=== PATIENT | male | born 1945 | race Caucasian/White ===

== ENCOUNTER 2017-06-08 12:06 | Observation (INO) | payer MEDICARE, MEDICAID ==
[~2017-06-08] VITALS: Ht 198.1 cm; Wt 86.0 kg
[~2017-06-08 12:06] MED LIST: ACET500C5 PO; CEPH-443 PO
--- NOTE | 2017-06-08 14:05 | ERD ---
ER Documentation Chief Complaint Date/Time DATE: 06/08/17 TIME: 14:03 Chief Complaint LT LEG PAIN SINCE LAST NIGHT , NO TRAUMA H/O BLOOD CLOT (BEKAH JOHNSON NP) HPI This 72-year-old male presenting to the emergency department with left leg pain. Patient states he noticed left groin and upper leg redness and pain 2 days. 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 Denies any numbness or tingling to left foot. No loss of sensation. No calf pain or tenderness. (BEKAH JOHNSON NP) ROS All systems reviewed and are negative except as per history of present illness. 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, EA scotty 2pumps topically aa daily 06/08/17 Budesonide-Formoterol Fumarate* (Symbicort*) 160-4.5 Hfa.aer.ad, 2 PUFF INHALATION BID, #1 EACH 06/08/17 Dutasteride* (Avodart*) 0.5 Mg Capsule, 0.5 MG PO DAILY, CAP 06/08/17 Gabapentin* (Gabapentin*) 300 Mg Capsule, 300 MG PO TID, #90 CAP 06/08/17 Warfarin Sodium* (Coumadin*) 7.5 Mg Tablet, 7.5 MG PO DAILY, TAB 06/08/17 Lovastatin* (Lovastatin*) 20 Mg Tablet, 20 MG PO HS, TAB 06/08/17 Discontinued Scripts Acetaminophen* (Tylophen*) 500 Mg Capsule, 1 CAP PO Q6H Y for PAIN AND OR ELEVATED TEMP, #15 CAP Prov:DAYNA NEW MD 05/20/16 Cephalexin* (Keflex*) 500 Mg Capsule, 500 MG PO QID for 10 Days, CAP Prov:DAYNA NEW MD 05/20/16 Allergies Allergies: Coded Allergies: Penicillins (Verified Allergy, Intermediate, 06/08/17) PMhx/Soc History of Surgery: Yes Hx Respiratory Disorders: Yes (COPD, Emphysema) Hx Miscellaneous Medical Probl: Yes (DVT) Hx Alcohol Use: No Hx Substance Use: No Hx Tobacco Use: No Smoking Status: Never smoker (BEKAH JOHNSON NP) FmHx Family History: No coronary disease (BRUCE WONG DO) Physical Exam Vitals Vital Signs Date Time Temp Pulse Resp B/P Pulse Ox O2 Delivery O2 Flow Rate FiO2 06/08/17 12:09 98.1 98 92 120/79 97 (BRUCE WONG DO) Physical Exam Const: alert Head: Atraumatic Eyes: Normal Conjunctiva ENT: Normal External Ears, Nose and Mouth. Neck: Full range of motion..~ No meningismus. Resp: Clear to auscultation bilaterally Cardio: Regular rate and rhythm, no murmurs Abd: Soft, non tender, non distended. Normal bowel sounds Skin: No petechiae or rashes Back: No midline or flank tenderness Ext: No cyanosis, or edema Neur: Awake and alert Psych: Normal Mood and Affect (BEKAH JOHNSON NP) Physical Exam Const: Well-developed, well-nourished Head: Atraumatic, normocephalic Eyes: Normal Conjunctiva, PERRLA, EOMI, normal sclera, no nystagmus ENT: Normal External Ears, Nose and Mouth, moist mucus membranes. Neck: Full range of motion. No meningismus, no lymphadenopathy. Resp: Clear to auscultation bilaterally, no wheezing, rhonchi, rales Cardio: Regular rate and rhythm, no murmurs, S1 S2 present Abd: Soft, non tender x 4, non distended. Normal bowel sounds, no guarding or rebound, no pulsitile abdominal masses or bruits Skin: No petechiae or rashes, no ecchymosis , no maculopapular rash Back: No midline or flank tenderness Ext: No cyanosis, pain swelling and tenderness of the left thigh, FROM x 4, normal inspection, neurovascularly intact x 4 Neur: Awake and alert, STR 5/5 x 4, sensation intact x 4, no focal findings, cerebellum intact Psych: Normal Mood and Affect (BRUCE WONG DO) Result Diagram: 06/09/17 0649 06/09/17 0649 Results 24 hrs Laboratory Tests Test 06/08/17 13:46 06/08/17 16:10 White Blood Count 8.810^3/ul Red Blood Count 4.9410^6/ul Hemoglobin 14.2g/dl Hematocrit 43.5% Mean Corpuscular Volume 88.1fl Mean Corpuscular Hemoglobin 28.7pg Mean Corpuscular Hemoglobin Concent 32.6g/dl Red Cell Distribution Width 13.5% Platelet Count 97409^3/UL Mean Platelet Volume 9.6fl Neutrophils % 72.7% Lymphocytes % 14.2% Monocytes % 5.7% Eosinophils % 6.6% Basophils % 0.6% Nucleated Red Blood Cells % 0.0/100WBC Neutrophils # (Manual) 6.410^3/ul Lymphocytes # 1.310^3/ul Monocytes # 0.510^3/ul Eosinophils # 0.610^3/ul Basophils # 0.110^3/ul Nucleated Red Blood Cells # 0.010^3/ul Prothrombin Time 29.9Sec Prothrombin Time Ratio 2.3 INR International Normalized Ratio 2.80 Activated Partial Thromboplast Time 50.7Sec Sodium Level 144mmol/L 142mmol/L Potassium Level 4.2mmol/L 4.1mmol/L Chloride Level 105mmol/L 103mmol/L Carbon Dioxide Level 31mmol/L 29mmol/L Anion Gap 12 14 Blood Urea Nitrogen 11mg/dl 12mg/dl Creatinine 0.91mg/dl 0.86mg/dl Glucose Level 72mg/dl 89mg/dl Calcium Level 9.1mg/dl 9.1mg/dl Total Bilirubin 0.1mg/dl Direct Bilirubin 0.00mg/dl Indirect Bilirubin 0.1mg/dl Aspartate Amino Transf (AST/SGOT) 17IU/L Alanine Aminotransferase (ALT/SGPT) 27IU/L Alkaline Phosphatase 71IU/L Total Protein 7.7g/dl Albumin 4.2g/dl Globulin 3.50g/dl Albumin/Globulin Ratio 1.20 Current Medications Medications (Trade) Dose Ordered Sig/Paty Route PRN Reason Start Time Stop Time Status Last Admin Dose Admin Sodium Chloride 1,000 ml @ 1,000 mls/hr Q1H ONCE IV 06/08/17 14:30 06/08/17 15:05 DC Clindamycin HCl/ Dextrose (Cleocin 900 Mg/ D5W (Pmx)) 50 ml @ 50 mls/hr ONCE IVPB 06/08/17 14:30 06/08/17 15:04 DC Acetaminophen/ Hydrocodone Bitart 1 tab 1 tab ONCE ONCE PO 06/08/17 15:30 06/08/17 15:31 DC 06/08/17 15:08 Heparin Sodium (Porcine) (Heparin 34972 Units/250 ml) 250 ml @ 0 mls/hr ONCE STAT IV 06/08/17 17:34 06/08/17 17:35 UNV (BRUCE WONG DO) Procedures/MDM [place] [address] Radiology Main Line: [phone] DIAGNOSTIC IMAGING REPORT Patient: AIMEE SIMS : 1945 Age: 72 Sex: M MR #: [id number] DOS: 06/08/17 1335 Ordering MD: BEKAH JOHNSON NP Location: [facility] Room/Bed: PROCEDURE: US DVT. CLINICAL INDICATION: Left lower extremity swelling. TECHNIQUE: Multiple longitudinal and transverse images of the left lower extremity veins were obtained with gonzalez scale and color Doppler imaging. 2D grayscale measurements with compression, color Doppler flow, and augmentation was performed. The calf veins were interrogated as well. COMPARISON: None available FINDINGS: There is noncompressibility of the left common femoral vein as well as the greater saphenous vein. The left femoral and popliteal veins are normally compressible throughout. Color flow demonstrates normal filling of the vessel. IMPRESSION: 1. Positive for deep venous thrombus in the left common femoral vein. Additional thrombus in the left greater saphenous vein is identified. MDM: 9- year old male presents to ER with left groin and leg pain x 1 day. A workup was done and venous ultrasound reviewed by radiologist shows positive for deep venous thrombus in the left common femoral vein. INR 2.8. Since patient is already on anticoagulation therapy and has an IVC filter in place, discussed findings with Dr. Wong. Dr. Wong spoke with vascular surgeon who advised us to admit the patient for heparin infusion and surgery tomorrow. Discussed this with patient. Patient will be signed out to Dr. Wong for admission. Patient remains comfortable throughout ED visit. Vitals are stable. (BEKAH JOHNSON NP) Patient's care is transferred to ar For admit to the hospital. Patient says some left leg swelling the past couple days with swelling and pain in the thigh with some mild erythema. He does have an IVC filter in place on Coumadin INR is 2.8. I discussed the case with her vascular surgeon Dr. Nguyen near we will have the patient admitted and put on heparin drip and he will take a look at him tomorrow. He may need some vascular intervention. He definitely needs to have his medication changed to Xarelto or other patient be admitted to [facility] on heparin drip (BRUCE WONG DO) Departure Diagnosis: Primary Impression: DVT (deep venous thrombosis) DVT location: lower extremity Affected thrombotic vein of extremity: femoral Chronicity: acute Laterality: left Qualified Code: I82.412 - Acute deep vein thrombosis (DVT) of femoral vein of left lower extremity Condition: Stable BEKAH JOHNSON NP Jun 08, 2017 14:05 BRUCE WONG DO Jun 08, 2017 17:35
[2017-06-08 14:08] LABS: BASOPHIL # 0.1 10^3/ul (0.0-0.1); BASOPHILS % 0.6 % (0.0-2.0); EOSINOPHILS # 0.6 10^3/ul (0.0-0.5); EOSINOPHILS % 6.6 % (0.0-7.0); HEMATOCRIT 43.5 % (42.0-52.0); HEMOGLOBIN 14.2 g/dl (14.0-18.0); LYMPHOCYTES # 1.3 10^3/ul (0.8-2.9); LYMPHOCYTES % 14.2 % (15.0-51.0); MEAN CORPUSCULAR HEMOGLOBIN 28.7 pg (29.0-33.0); MEAN CORPUSCULAR HGB CONC 32.6 g/dl (32.0-37.0); MEAN CORPUSCULAR VOLUME 88.1 fl (82.0-101.0); MEAN PLATELET VOLUME 9.6 fl (7.4-10.4); MONOCYTE # 0.5 10^3/ul (0.3-0.9); MONOCYTES % 5.7 % (0.0-11.0); NEUTROPHILS % 72.7 % (39.0-77.0); PLATELET COUNT 196 10^3/UL (140-415); RED BLOOD COUNT 4.94 10^6/ul (4.70-6.10); RED CELL DISTRIBUTION WIDTH 13.5 % (11.5-14.5); WHITE BLOOD COUNT 8.8 10^3/ul (4.8-10.8)
[2017-06-08 14:27] LABS: INR 2.8; PROTIME 29.9 Sec (12.2-14.2); PT RATIO 2.3
[2017-06-08] MEDS ORDERED: CLINDAMYCIN 900 MG/D5W (PMX) 50 ML IVPB SCH (14:30)
[2017-06-08] MEDS ORDERED: SOD CHLORIDE 0.9% 1,000 ML IV ONE (14:30)
[2017-06-08 14:31] LABS: CALCIUM 9.1 mg/dl (8.4-10.2); CREATININE 0.91 mg/dl (0.61-1.24); POTASSIUM 4.2 mmol/L (3.5-5.1)
[2017-06-08 14:33] LABS: PARTIAL THROMBOPLASTIN TIME 50.7 Sec (25.0-35.0)
[2017-06-08] MEDS ORDERED: HYDR-906 PO (15:21)
[2017-06-08] MEDS ORDERED: CLIN-73 PO (15:21)
[2017-06-08] MEDS ORDERED: HYDROCODONE/APAP (5/325) TAB PO ONE (15:30)
--- NOTE | 2017-06-08 15:39 | RADRPT ---
PROCEDURE: US DVT. CLINICAL INDICATION: Left lower extremity swelling. TECHNIQUE: Multiple longitudinal and transverse images of the left lower extremity veins were obta ined with gonzalez scale and color Doppler imaging. 2D grayscale measurements with compression, color D oppler flow, and augmentation was performed. The calf veins were interrogated as well. COMPARISON: None available FINDINGS: There is noncompressibility of the left common femoral vein as well as the greater saphenous vein. The left femoral and popliteal veins are normally compressible throughout. Color flow demonstrates normal filling of the vessel. IMPRESSION: 1. Positive for deep venous thrombus in the left common femoral vein. Additional thrombus in the l eft greater saphenous vein is identified. Findings discussed with Brigette Parekh (Laure) at 06/08/2017 3:36:50 PM RPTAT: UU .Harry Juarez MD, Date Time Electronically viewed and signed by .Harry Juarez MD, on 06/08/2017 15:38 .K/
[2017-06-08] MEDS ORDERED: LOVA20TA PO (16:34)
[2017-06-08] MEDS ORDERED: WARF7.5T PO (16:35)
[2017-06-08] MEDS ORDERED: GABA300C16 PO (16:35)
[2017-06-08] MEDS ORDERED: DUTA0.5C PO (16:36)
[2017-06-08] MEDS ORDERED: BUDE6HFA INHALATION (16:36)
[2017-06-08] MEDS ORDERED: TEST75GE TD (16:39)
[2017-06-08 16:45] LABS: ALBUMIN 4.2 g/dl (3.3-4.9); ALBUMIN/GLOBULIN RATIO 1.2; BILIRUBIN,INDIRECT 0.1 mg/dl (0-1.1); BILIRUBIN,TOTAL 0.1 mg/dl (0.2-1.3); CALCIUM 9.1 mg/dl (8.4-10.2); CREATININE 0.86 mg/dl (0.61-1.24); POTASSIUM 4.1 mmol/L (3.5-5.1); TOTAL PROTEIN 7.7 g/dl (6.1-8.1)
[2017-06-08] MEDS ORDERED: HEPARIN 25000 UNITS/250 ML 250 ML IV STA (17:34)
[2017-06-08] MEDS ORDERED: ACETAMINOPHEN 325 MG TAB PO PRN (18:00)
[2017-06-08] MEDS ORDERED: ONDANSETRON 4 MG INJ IV PRN ×2 (18:00→22:00)
[2017-06-08] MEDS ORDERED: morphine 4 MG/ML VIAL IV STA (19:33)
[2017-06-08] MEDS ORDERED: ONDANSETRON 4 MG INJ IV STA (19:33)
[2017-06-08] MEDS ORDERED: LORAZEPAM 2 MG INJ IV ONE (20:00)
[2017-06-08 20:31] VITALS: TEMP 98
[2017-06-08 21:12] VITALS: PULSE 77
[2017-06-08 21:30] VITALS: BP 126/60; PULSE 73; RESP 24
[2017-06-08] MEDS ORDERED: ZOLPIDEM 5 MG TAB PO PRN (22:00)
[2017-06-08] MEDS ORDERED: HEPARIN 1000 UNITS/ML 10 ML INJ IV PRN ×2 (22:00)
[2017-06-08] MEDS ORDERED: HYDROCODONE/APAP (5/325) TAB PO PRN (22:00)
[2017-06-08] MEDS ORDERED: morphine 2 MG INJ IV PRN (22:00)
[2017-06-08] MEDS ORDERED: ALBUTEROL/IPRATROPIUM (NEB) 3 ML AMP HHN PRN (22:00)
[2017-06-08] MEDS ORDERED: HEPARIN 25000 UNITS/250 ML 250 ML IV SCH (22:00)
[2017-06-08 22:47] VITALS: Ht 198.1 cm; Wt 86.0 kg
[2017-06-09] VITALS: BP 136/71; RESP 16
[2017-06-09 05:07] VITALS: BP 128/73; RESP 20
--- NOTE | 2017-06-09 06:15 | HP ---
Date/Time of Note Date/Time of Note DATE: 06/09/17 TIME: 05:39 Assessment/Plan VTE Prophylaxis VTE Prophylaxis Intervention: heparin Lines/Catheters IV [facility] Peripheral IV Assessment/Plan Assessment/Plan 1. 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 He is status post placement of IVC filter in 2007. -Currently he is on heparin drip which I will continue. Upon discharge, he should be switched to Xarelto or Eliquis. Will place vascular surgery consult to see if this needs invasive intervention. -Consider hematology consult as needed 2. COPD: -Continue home medications -Will give him a dose of Solu-Medrol because of wheezing 3. Dyslipidemia -Continue statin HPI/ROS Admit Date/Time Admit Date/Time Jun 08, 2017 at 17:39 Hx of Present Illness This is a 72-year-old male with a history of COPD and left lower extremity DVT, status post IVC filter in 2007 currently on Coumadin who presented to the emergency department complaining of left leg pain and redness which he noticed yesterday. He said he is very active and does not usually sits around at home. 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 In the ER, he was found to have DVT in left common femoral. There is also thrombosis in the left saphenous. He has been taking his Coumadin and his INR is actually 2.8. Denied chest pain. He also denied acute shortness of breath even though he does have occasional shortness of breath from his COPD. Patient was very reluctant to be admitted but he decided to stay after he was convinced by ER that he will need vascular surgeon evaluation. He said he has to leave by noon regardless of whether or not he has vascular intervention. . PMH/Family/Social Past Medical History Left leg DVT COPD Dyslipidemia . Social History Smoking Status: Former smoker Exam/Review of Systems Vital Signs Vitals Vital Signs Date Time Temp Pulse Resp B/P Pulse Ox O2 Delivery O2 Flow Rate FiO2 06/09/17 05:07 98.4 89 20 128/73 94 06/08/17 22:00 Nasal Cannula 2.0 Intake and Output 06/08/17 06/08/17 06/09/17 15:00 23:00 07:00 Intake Total 500 ml Output Total 500 ml Balance 0 ml Exam Constitutional: alert, oriented, well developed Head: atraumatic, normocephalic Eyes: EOMI, PERRL Respiratory: wheezing Cardiovascular: nl pulses, regular rate and rhythm Gastrointestinal: non-tender, soft Extremities: other (There is redness, tenderness and some swelling on the medial aspect of his upper thigh) Labs Result Diagram: 06/08/17 1346 06/08/17 1610 Medications Medications Current Medications Dutasteride (Avodart) 0.5 mg DAILY PO ; Start 06/09/17 at 09:00 Gabapentin (Neurontin) 300 mg TID PO ; Start 06/09/17 at 09:00 Acetaminophen/ Hydrocodone Bitart ([place] (5/325)) 1 tab Q6H PRN PO PAIN; Start 06/08/17 at 22:00 Salmeterol Xinafoate/ Fluticasone (Advair 250/50 Diskus) 1 inh BID INH ; Start 06/09/17 at 09:00 Atorvastatin Calcium (Lipitor) 20 mg HS PO ; Start 06/09/17 at 21:00 Albuterol/ Ipratropium (Duoneb) 3 ml Q3 PRN HHN WHEEZING AND SOB; Start at 22:00 Morphine Sulfate (morphine) 2 mg Q4H PRN IV PAIN; Start 06/08/17 at 22:00 Ondansetron HCl (Zofran Inj) 4 mg Q6H PRN IV NAUSEA AND/OR VOMITING; Start 06/08 at 22:00 ADEEL VEGA MD Jun 09, 2017 05:49
[2017-06-09 07:31] VITALS: BP 121/79; RESP 18
[2017-06-09 07:51] LABS: BASOPHIL # 0.1 10^3/ul (0.0-0.1); BASOPHILS % 0.8 % (0.0-2.0); EOSINOPHILS # 0.8 10^3/ul (0.0-0.5); HEMATOCRIT 41.8 % (42.0-52.0); HEMOGLOBIN 13.5 g/dl (14.0-18.0); LYMPHOCYTES # 1.4 10^3/ul (0.8-2.9); LYMPHOCYTES % 18.3 % (15.0-51.0); MEAN CORPUSCULAR HEMOGLOBIN 28.4 pg (29.0-33.0); MEAN CORPUSCULAR HGB CONC 32.3 g/dl (32.0-37.0); MEAN PLATELET VOLUME 10.2 fl (7.4-10.4); MONOCYTE # 0.5 10^3/ul (0.3-0.9); MONOCYTES % 6.6 % (0.0-11.0); PLATELET COUNT 219 10^3/UL (140-415); RED BLOOD COUNT 4.75 10^6/ul (4.70-6.10); RED CELL DISTRIBUTION WIDTH 13.2 % (11.5-14.5); WHITE BLOOD COUNT 7.4 10^3/ul (4.8-10.8)
[2017-06-09 08:14] LABS: ALBUMIN 3.8 g/dl (3.3-4.9); ALBUMIN/GLOBULIN RATIO 1.22; BILIRUBIN,INDIRECT 0.3 mg/dl (0-1.1); BILIRUBIN,TOTAL 0.3 mg/dl (0.2-1.3); CREATININE 0.8 mg/dl (0.61-1.24); MAGNESIUM 2.2 mg/dl (1.7-2.5); TOTAL PROTEIN 6.9 g/dl (6.1-8.1)
[2017-06-09] MEDS ORDERED: GABAPENTIN 300 MG CAP PO SCH (09:00)
[2017-06-09] MEDS ORDERED: DUTASTERIDE 0.5 MG CAP PO SCH (09:00)
[2017-06-09] MEDS ORDERED: SALMETEROL/FLUTICASONE 250/50 INHA INH SCH (09:00)
--- NOTE | 2017-06-09 17:07 | DS ---
Date/Time of Note Date/Time of Note DATE: 06/09/17 TIME: 17:01 Discharge Summary Admission/Discharge Info Admit Date/Time Jun 08, 2017 at 17:39 Discharge Date/Time Jun 09, 2017 at 10:39 Discharge Diagnosis Acute DVT left common femoral and left greater saphenous veins Patient Condition: Good Hx of Present Illness This is a 72-year-old male with a history of COPD and left lower extremity DVT, status post IVC filter in 2007 currently on Coumadin who presented to the emergency department complaining of left leg pain and redness which he noticed yesterday. He said he is very active and does not usually sits around at home. 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 In the ER, he was found to have DVT in left common femoral. There is also thrombosis in the left saphenous. He has been taking his Coumadin and his INR is actually 2.8. Denied chest pain. He also denied acute shortness of breath even though he does have occasional shortness of breath from his COPD. Patient was very reluctant to be admitted but he decided to stay after he was convinced by ER that he will need vascular surgeon evaluation. He said he has to leave by noon regardless of whether or not he has vascular intervention. . Hospital Course Patient was started on Heparin drip upon admission. However, he left AMA before being seen by day team hospitalist. Patient was adamant about being discharged in the morning and was informed by the admitting physician that complete workup was not likely to be completed by noon. Patient was not discharged with any medication prescriptions or instructions. He was informed however at time of admission to follow up with the Vascular surgery he has already established care with. 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, EA scotty 2pumps topically aa daily 06/08/17 Budesonide-Formoterol Fumarate* (Symbicort*) 160-4.5 Hfa.aer.ad, 2 PUFF INHALATION BID, #1 EACH 06/08/17 Dutasteride* (Avodart*) 0.5 Mg Capsule, 0.5 MG PO DAILY, CAP 06/08/17 Gabapentin* (Gabapentin*) 300 Mg Capsule, 300 MG PO TID, #90 CAP 06/08/17 Warfarin Sodium* (Coumadin*) 7.5 Mg Tablet, 7.5 MG PO DAILY, TAB 06/08/17 Lovastatin* (Lovastatin*) 20 Mg Tablet, 20 MG PO HS, TAB 06/08/17 Discontinued Scripts Acetaminophen* (Tylophen*) 500 Mg Capsule, 1 CAP PO Q6H Y for PAIN AND OR ELEVATED TEMP, #15 CAP Prov:DAYNA NEW MD 05/20/16 Cephalexin* (Keflex*) 500 Mg Capsule, 500 MG PO QID for 10 Days, CAP Prov:DAYNA NEW MD 05/20/16 Follow-up Plan Patient instructed at time of admission to follow up with vascular surgery as outpatient Primary Care Provider [facility] Emergency Time spent on discharge: < 30 minutes Pending Labs Laboratory Tests Test 06/09/17 00:44 06/09/17 06:49 Activated Partial Thromboplast Time 76.0Sec (25.0-35.0) 110.3Sec (25.0-35.0) White Blood Count 7.410^3/ul (4.8-10.8) Red Blood Count 4.7510^6/ul (4.70-6.10) Hemoglobin 13.5g/dl (14.0-18.0) Hematocrit 41.8% (42.0-52.0) Mean Corpuscular Volume 88.0fl (82.0-101.0) Mean Corpuscular Hemoglobin 28.4pg (29.0-33.0) Mean Corpuscular Hemoglobin Concent 32.3g/dl (32.0-37.0) Red Cell Distribution Width 13.2% (11.5-14.5) Platelet Count 52394^3/UL (140-415) Mean Platelet Volume 10.2fl (7.4-10.4) Neutrophils % 63.0% (39.0-77.0) Lymphocytes % 18.3% (15.0-51.0) Monocytes % 6.6% (0.0-11.0) Eosinophils % 11.0% (0.0-7.0) Basophils % 0.8% (0.0-2.0) Nucleated Red Blood Cells % 0.0/100WBC (0.0-0.0) Neutrophils # (Manual) 4.610^3/ul (1.7-7.5) Lymphocytes # 1.410^3/ul (0.8-2.9) Monocytes # 0.510^3/ul (0.3-0.9) Eosinophils # 0.810^3/ul (0.0-0.5) Basophils # 0.110^3/ul (0.0-0.1) Nucleated Red Blood Cells # 0.010^3/ul (0.0-0.0) Sodium Level 142mmol/L (135-144) Potassium Level 4.0mmol/L (3.5-5.1) Chloride Level 104mmol/L (97-110) Carbon Dioxide Level 30mmol/L (21-31) Anion Gap 12 (8-16) Blood Urea Nitrogen 11mg/dl (7-20) Creatinine 0.80mg/dl (0.61-1.24) Glucose Level 105mg/dl (70-220) Calcium Level 9.0mg/dl (8.4-10.2) Phosphorus Level 3.0mg/dl (2.5-4.9) Magnesium Level 2.2mg/dl (1.7-2.5) Total Bilirubin 0.3mg/dl (0.2-1.3) Direct Bilirubin 0.00mg/dl (0.00-0.20) Indirect Bilirubin 0.3mg/dl (0-1.1) Aspartate Amino Transf (AST/SGOT) 16IU/L (15-46) Alanine Aminotransferase (ALT/SGPT) 27IU/L (13-69) Alkaline Phosphatase 68IU/L (42-121) Total Protein 6.9g/dl (6.1-8.1) Albumin 3.8g/dl (3.3-4.9) Globulin 3.10g/dl (1.3-3.2) Albumin/Globulin Ratio 1.22 DIANE MARCIAL MD Jun 09, 2017 17:07
[2017-06-09] MEDS ORDERED: ATORVASTATIN 20 MG TAB PO SCH (21:00)
== END 2017-06-09 10:39 | disposition left against medical advice (07) ==
LOC: FTE 12:06 → MS4 17:39 → TEL 21:44
PROVIDERS: ADMIT Internal Medicine; ATTEND Internal Medicine
DX: I82.412 Acute embolism and thrombosis of left femoral vein (principal); I82.492 Acute embolism and thrombosis of other specified deep vein of left lower extremity; J44.9 Chronic obstructive pulmonary disease, unspecified; E78.5 Hyperlipidemia, unspecified; Z79.01 Long term (current) use of anticoagulants
CPT/HCPCS: 80048; 80053; 83735; 84100; 85025; 85610; 85730; 87040; 93971; 94640; 94664; G0378; J1644; J2060; J2270; J2405; J7030

== ENCOUNTER 2017-06-15 13:20 | Emergency (ER) | payer MEDICARE, BC ==
[~2017-06-15] VITALS: Wt 82.3 kg
[~2017-06-15 13:20] MED LIST changes: -ACET500C5 PO; +BUDE6HFA INHALATION; -CEPH-443 PO; +DUTA0.5C PO; +GABA300C16 PO; +HYDR-906 PO; +LOVA20TA PO; +TEST75GE TD; +WARF7.5T PO
[2017-06-15 13:26] VITALS: Wt 82.3 kg
--- NOTE | 2017-06-15 16:21 | ERA ---
ER Documentation Chief Complaint Date/Time DATE: 06/15/17 TIME: 16:15 Chief Complaint LEFT LEG PAIN, HERE LAST WEEK SIGNED AMA FROM FLOOR HPI This is a 72-year-old male history of recurrent DVTs with an IVC filter who presents for reevaluation of left lower extremity swelling and pain. The patient had recent hospitalization where he left AGAINST MEDICAL ADVICE because of a new DVT despite therapeutic Coumadin. The patient denies any chest pain or shortness of breath. He states that he had to take care of personal issues. The patient returns because of persistent swelling and mild pain and throbbing to the left lower extremity. Again, no chest pain or pleuritic pain. He states compliance with his Coumadin. He presents back to the emergency room asking for procedure as he was told he might have a procedure. The patient did not have a consultation by vascular surgery during his recent hospitalization. ROS All systems reviewed and are negative except as per history of present illness. 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, EA scotty 2pumps topically aa daily 06/08/17 Budesonide-Formoterol Fumarate* (Symbicort*) 160-4.5 Hfa.aer.ad, 2 PUFF INHALATION BID, #1 EACH 06/08/17 Dutasteride* (Avodart*) 0.5 Mg Capsule, 0.5 MG PO DAILY, CAP 06/08/17 Gabapentin* (Gabapentin*) 300 Mg Capsule, 300 MG PO QHS, #90 CAP 06/08/17 Warfarin Sodium* (Coumadin*) 7.5 Mg Tablet, 7.5 MG PO DAILY, TAB 06/08/17 Lovastatin* (Lovastatin*) 20 Mg Tablet, 20 MG PO QAM, TAB 06/08/17 Discontinued Scripts Hydrocodone/Acetaminophen ([place] 5-325 Tablet) 1 Each Tablet, 1 TAB PO Q6H Y for PAIN, #15 TAB Prov:ALEXBRIGETTEJerad FARIAS 06/08/17 Acetaminophen* (Tylophen*) 500 Mg Capsule, 1 CAP PO Q6H Y for PAIN AND OR ELEVATED TEMP, #15 CAP Prov:DAYNA NEW MD 05/20/16 Cephalexin* (Keflex*) 500 Mg Capsule, 500 MG PO QID for 10 Days, CAP Prov:DAYNA NEW MD 05/20/16 Allergies Allergies: Coded Allergies: Penicillins (Verified Allergy, Intermediate, 06/15/17) PMhx/Soc History of Surgery: Yes (cataract , bilateral eyebrow surgery) Anesthesia Reaction: No Hx Neurological Disorder: No Hx Respiratory Disorders: Yes (COPD, emphysema, s/p left chest tube) Hx Cardiac Disorders: Yes (hx heart attack s/p stent) Hx Psychiatric Problems: No Hx Miscellaneous Medical Probl: Yes (hx DVT - left LE, s/p IVC filter) Hx Alcohol Use: Yes Hx Substance Use: No Hx Tobacco Use: Yes Smoking Status: Current every day smoker FmHx Family History: No diabetes Physical Exam Vitals Vital Signs Date Time Temp Pulse Resp B/P Pulse Ox O2 Delivery O2 Flow Rate FiO2 06/15/17 13:26 98.1 117 18 138/78 99 Physical Exam General: Well developed, well nourished, no acute distress Head: Normocephalic, atraumatic. Eyes: EOM intact ENT: Moist mucous membranes Neck: Full ROM Respiratory: No respiratory distress Cardiovascular: Good capillary refil Abdominal: Nondistended : Deferred MSK: Left lower extremity unilateral swelling with venous stasis dermatitis changes. 2+ dorsalis pedis and posterior tibial pulses. Neurologic: Alert and oriented, moving all extremities, normal speech, steady gait Skin: No rash Psych: Normal mood Result Diagram: 06/15/17 1625 06/15/17 1625 Results 24 hrs Laboratory Tests Test 06/15/17 16:25 White Blood Count 9.410^3/ul Red Blood Count 4.6610^6/ul Hemoglobin 13.3g/dl Hematocrit 41.0% Mean Corpuscular Volume 88.0fl Mean Corpuscular Hemoglobin 28.5pg Mean Corpuscular Hemoglobin Concent 32.4g/dl Red Cell Distribution Width 13.2% Platelet Count 99779^3/UL Mean Platelet Volume 9.4fl Neutrophils % 66.5% Lymphocytes % 17.0% Monocytes % 9.7% Eosinophils % 5.9% Basophils % 0.5% Nucleated Red Blood Cells % 0.0/100WBC Neutrophils # (Manual) 6.210^3/ul Lymphocytes # 1.610^3/ul Monocytes # 0.910^3/ul Eosinophils # 0.610^3/ul Basophils # 0.110^3/ul Nucleated Red Blood Cells # 0.010^3/ul Prothrombin Time 25.4Sec Prothrombin Time Ratio 2.0 INR International Normalized Ratio 2.28 Activated Partial Thromboplast Time 52.4Sec Sodium Level 140mmol/L Potassium Level 4.1mmol/L Chloride Level 103mmol/L Carbon Dioxide Level 31mmol/L Anion Gap 10 Blood Urea Nitrogen 13mg/dl Creatinine 0.82mg/dl Glucose Level 101mg/dl Calcium Level 9.1mg/dl Procedures/MDM EKG, MONITORS, & DIAGNOSTIC IMAGING: DVT from last visit IMPRESSION: 1. Positive for deep venous thrombus in the left common femoral vein. Additional thrombus in the left greater saphenous vein is identified. Findings discussed with Brigette Parekh (Laure) at 06/08/2017 3:36:50 PM RPTAT: [facility] LAB INTERPRETATION: Therapeutic INR MEDICAL DECISION MAKING: the patient presents for further evaluation of a DVT despite Coumadin. The patient has an IVC filter. Unclear what further interventions can be provided for this patient. Consideration for changing to Eliquis or Lovenox but this needs to be done in consultation with a insulation board coater operator and oncologist. The patient is stable without signs of pulmonary embolism. He thinks that he was going to have a Procedure but he never had a consultation by vascular surgeon. I will reach out to vascular surgery to see if there is something that we can do for this patient as an inpatient. Otherwise outpatient management with consultations would be reasonable. ER COURSE: I was able to speak to Dr. Mendiola, vascular surgeon. We reviewed the patient 's case, diagnostic imaging and clinical presentation. He feels that no emergent surgical intervention is necessary or appropriate for this patient. Therefore, inpatient hospitalization is unnecessary. He does however recommend that the patient follow-up in his office because further conversations for therapeutic interventions and treatment course could be possible on an outpatient basis. The patient's information was shared with Dr. Mendiola. The patient was given referral information to Dr. Mendiola. At this time the patient is resting comfortably. He should continue his Coumadin keep his leg elevated and return for any worsening symptoms or signs of pulmonary embolism. I kept the patient and/or family informed of laboratory and diagnostic imaging results throughout the emergency room course. DISPOSITION PLAN: We discussed follow up with the patient's primary care doctor within 24 to 48 hours as needed. We also discussed return to the emergency room for worsening symptoms or worsening condition. Outpatient referral: Vascular surgery, Dr. Mendiola Departure Diagnosis: Primary Impression: DVT (deep venous thrombosis) Qualified Code: I82.412 - Deep vein thrombosis (DVT) of femoral vein of left lower extremity, unspecified chronicity Condition: Stable GANGA GLASS MD Jun 15, 2017 16:21
[2017-06-15 16:44] LABS: BASOPHIL # 0.1 10^3/ul (0.0-0.1); BASOPHILS % 0.5 % (0.0-2.0); EOSINOPHILS # 0.6 10^3/ul (0.0-0.5); EOSINOPHILS % 5.9 % (0.0-7.0); HEMOGLOBIN 13.3 g/dl (14.0-18.0); LYMPHOCYTES # 1.6 10^3/ul (0.8-2.9); MEAN CORPUSCULAR HEMOGLOBIN 28.5 pg (29.0-33.0); MEAN CORPUSCULAR HGB CONC 32.4 g/dl (32.0-37.0); MEAN PLATELET VOLUME 9.4 fl (7.4-10.4); MONOCYTE # 0.9 10^3/ul (0.3-0.9); MONOCYTES % 9.7 % (0.0-11.0); NEUTROPHILS % 66.5 % (39.0-77.0); PLATELET COUNT 188 10^3/UL (140-415); RED BLOOD COUNT 4.66 10^6/ul (4.70-6.10); RED CELL DISTRIBUTION WIDTH 13.2 % (11.5-14.5); WHITE BLOOD COUNT 9.4 10^3/ul (4.8-10.8)
[2017-06-15] MEDS ORDERED: ALBU2.5V3 NEB (16:44)
[2017-06-15] MEDS ORDERED: ALBU18HF INHALATION (16:45)
[2017-06-15 16:58] LABS: INR 2.28; PROTIME 25.4 Sec (12.2-14.2)
[2017-06-15 16:59] LABS: PARTIAL THROMBOPLASTIN TIME 52.4 Sec (25.0-35.0)
[2017-06-15 17:01] LABS: CALCIUM 9.1 mg/dl (8.4-10.2); CREATININE 0.82 mg/dl (0.61-1.24); POTASSIUM 4.1 mmol/L (3.5-5.1)
[2017-06-15 17:11] VITALS: BP 130/80; PULSE 70; RESP 18; TEMP 97.9
== END 2017-06-15 17:20 | disposition home or self-care (01) ==
LOC: E/R 13:20 → FTE 17:20
DX: I82.412 Acute embolism and thrombosis of left femoral vein (principal); J44.9 Chronic obstructive pulmonary disease, unspecified; F17.210 Nicotine dependence, cigarettes, uncomplicated; Z79.01 Long term (current) use of anticoagulants; Z98.61 Coronary angioplasty status
CPT/HCPCS: 36415; 80048; 85025; 85610; 85730; 99283

== ENCOUNTER 2017-07-15 08:24 | Day surgery (SDC) | payer MEDICARE, BC ==
[~2017-07-15] VITALS: Ht 198.1 cm; Wt 78.2 kg
[~2017-07-15 08:24] MED LIST changes: +ALBU18HF INHALATION; +ALBU2.5V3 NEB; -HYDR-906 PO
[2017-07-15] MEDS ORDERED: ENOX80DI2 SC (08:57)
[2017-07-15 09:10] VITALS: Ht 198.1 cm; Wt 78.2 kg
[2017-07-15 09:12] VITALS: BP 117/72; PULSE 91; RESP 16
--- NOTE | 2017-07-15 09:28 | RADRPT ---
PROCEDURE: XR Chest. CLINICAL INDICATION: Shortness of breath TECHNIQUE: Single portable view of the chest was obtained COMPARISON: No priors for comparison. FINDINGS: The trachea is midline. The cardiac silhouette and pulmonary vascularity are within normal limits. R ight upper lobe calcified granuloma is noted. There are bilateral chronic lung changes. The lungs ot herwise clear.. The costophrenic angles are sharp. IMPRESSION: 1. Right upper lobe calcified granuloma and bilateral chronic lung changes. No evidence of acute car diopulmonary disease. RPTAT: [facility] Physician Jeromy Date Time Electronically viewed and signed by Physician Jeromy on 07/15/2017 09:28 YE/
[2017-07-15 09:34] LABS: BASOPHIL # 0.1 10^3/ul (0.0-0.1); BASOPHILS % 0.8 % (0.0-2.0); EOSINOPHILS # 0.6 10^3/ul (0.0-0.5); EOSINOPHILS % 9.3 % (0.0-7.0); HEMATOCRIT 38.4 % (42.0-52.0); LYMPHOCYTES # 1.4 10^3/ul (0.8-2.9); LYMPHOCYTES % 23.3 % (15.0-51.0); MEAN CORPUSCULAR HEMOGLOBIN 27.2 pg (29.0-33.0); MEAN CORPUSCULAR HGB CONC 31.3 g/dl (32.0-37.0); MEAN CORPUSCULAR VOLUME 87.1 fl (82.0-101.0); MEAN PLATELET VOLUME 9.2 fl (7.4-10.4); MONOCYTE # 0.5 10^3/ul (0.3-0.9); MONOCYTES % 8.6 % (0.0-11.0); NEUTROPHIL # 3.5 10^3/ul (1.6-7.5); NEUTROPHILS % 57.5 % (39.0-77.0); PLATELET COUNT 466 10^3/UL (140-415); RED BLOOD COUNT 4.41 10^6/ul (4.70-6.10); RED CELL DISTRIBUTION WIDTH 13.3 % (11.5-14.5); WHITE BLOOD COUNT 6.1 10^3/ul (4.8-10.8)
[2017-07-15 09:51] LABS: INR 1.18; PROTIME 15.1 Sec (12.2-14.2); PT RATIO 1.2
[2017-07-15 09:52] LABS: PARTIAL THROMBOPLASTIN TIME 34.8 Sec (25.0-35.0)
[2017-07-15 09:57] LABS: CALCIUM 9.3 mg/dl (8.4-10.2); CREATININE 0.84 mg/dl (0.61-1.24); POTASSIUM 3.5 mmol/L (3.5-5.1)
[2017-07-15 13:05] LABS: ADD UMIC NO; UR ASCORBIC ACID NEGATIVE (NEGATIVE); UR BACTERIA FEW /HPF (NONE SEEN); UR BILIRUBIN (Dip) NEGATIVE (NEGATIVE); UR BLOOD (Dip) NEGATIVE (NEGATIVE); UR CLARITY SLIGHTLY CLOUDY (CLEAR); UR COLOR YELLOW (YELLOW); UR GLUCOSE (Dip) NEGATIVE (NEGATIVE); UR KETONES (Dip) NEGATIVE (NEGATIVE); UR LEUKOCYTE ESTERASE (Dip) NEGATIVE Leu/ul (NEGATIVE); UR MUCUS FEW /HPF (NONE SEEN); UR NITRITE (Dip) NEGATIVE (NEGATIVE); UR RBC 1 /HPF (0-5); UR SPECIFIC GRAVITY (Dip) 1.021 (1.003-1.030); UR SQUAMOUS EPITHELIAL CELL FEW /HPF (FEW); UR TOTAL PROTEIN (Dip) NEGATIVE (NEGATIVE); UR UROBILINOGEN (Dip) NEGATIVE (NEGATIVE)
[2017-07-15] MEDS ORDERED: LIDOCAINE 1% (MDV) 20 ML INJ ONE (14:20)
[2017-07-15] MEDS ORDERED: HEPARIN 1000 UNITS/ML 10 ML INJ ONE (14:20)
[2017-07-15] MEDS ORDERED: IODIXANOL LOCM 100 ML BTL ONE (14:20)
--- NOTE | 2017-07-15 14:35 | HPN ---
Date/Time of Note Date/Time of Note DATE: 07/15/17 TIME: 14:35 Interval H&P Admission Note Pt. seen H&P reviewed: No system changes MATT MCCULLOUGH MD Jul 15, 2017 14:35
[2017-07-15] MEDS ORDERED: MIDAZOLAM 1 MG/ML 2 ML INJ ONE (14:36)
[2017-07-15] MEDS ORDERED: FENTAnyl 50 MCG/ML VIAL ONE (14:37)
[2017-07-15] MEDS ORDERED: SOD CHLORIDE 0.45% 1,000 ML IV SCH (14:40)
--- NOTE | 2017-07-15 14:41 | PDOCDIS ---
Discharge Instructions DIAGNOSIS Discharge Diagnosis BILATERAL LOWER EXTREMITY DVTS CONDITION Patient Condition: Good HOME CARE INSTRUCTIONS: Diet Instructions: Regular ACTIVITY: Activity Restrictions: Rest between Activity Avoid heavy lifting Do not Drive Do not operate Machinery Do not operate Power Tool Avoid Heavy Housework Activity Restrictions Comment: SHOWER IN 24HOURS FOLLOW UP/APPOINTMENTS Follow-up Plan FOLLOWUP IN 2-3 WEEKS MATT MCCULLOUGH MD Jul 15, 2017 14:41
[2017-07-15] MEDS ORDERED: ONDANSETRON 4 MG INJ IV PRN (15:00)
--- NOTE | 2017-07-15 15:25 | SIPON ---
Date/Time of Note Date/Time of Note DATE: 07/15/17 TIME: 15:24 Operative Report Preoperative Diagnosis bilateral LE DVT's Postoperative Diagnosis same Operation/Procedure Performed BILATERAL LOWER EXTREMITY VENOGRAMS Surgeon see signature line legal administrative assistant none Anesthesia: moderate sedation Estimated blood loss: minimal Transfusion Required none Specimen none Grafts/Implants none Complications none MATT MCCULLOUGH MD Jul 15, 2017 15:25
[2017-07-15 15:30] VITALS: BP 126/67; PULSE 89; RESP 18
[2017-07-15] MEDS ORDERED: WARFARIN 10 MG TAB PO ONE (15:30)
[2017-07-15 17:30] VITALS: BP 122/65; PULSE 85; RESP 18
--- NOTE | 2017-07-17 07:57 | OPR ---
DATE OF OPERATION: 07/15/2017 SURGEON: Ash Mendiola MD. PREOPERATIVE DIAGNOSES: Bilateral lower extremity deep venous thrombosis and left lower extremity v enous insufficiency and venous stasis ulcer. POSTOPERATIVE DIAGNOSES: Bilateral lower extremity deep venous thrombosis and left lower extremity venous insufficiency and venous stasis ulcer. ANESTHESIA: Local with moderate sedation. ESTIMATED BLOOD LOSS: Minimal. COMPLICATIONS: None. HEPARIN: None. CONTRAST: As recorded. ACCESS: Right and left common femoral vein. A 5-[place] sheath. CLOSURE: Manual compression. 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 The patient hart chin presented a few months back in [facility] in [facility] with a new onset of DVT at which time they had placed an inferior vena cava filter. It seemed to be an type. The patient cont inued to have left lower extremity swelling and venous stasis ulcer that has gradually healed with o ur compression stockings recommendations. Today, patient had been informed alternatives, risks and benefits of venogram, possible venoplasty and stenting. Further, the patient's venous stasis ulcer recurrence with his thrombosed greater saphenous vein, we wanted to investigate for any iliac vein c ompression. Risks including but not limited to bleeding, thrombosis, embolization, myocardial infar ction, , device malfunction, infection, nephrotoxicity, stroke, and patient has agreed to proce ed. PROCEDURE: 1. Ultrasound-guided axis of the left common femoral vein. 2. Ultrasound-guided access of the right common femoral vein. 3. Moderate sedation. 4. Inferior vena cava venogram, introducer of catheter 5. Bilateral iliac vein venography. FINDINGS: 1. Right external iliac vein patent. 2. Right common iliac vein patent. 3. inferior vena cava patent. 4. Left common femoral vein patent. 5. Left external iliac vein, patent; however, small in caliber. There was area that seems to be co mpressed in the junction of the left external iliac vein to where the common iliac vein is located. 6. Left common iliac vein enlarged and seems to have a compression in the mid aspect of it. DESCRIPTION OF PROCEDURE: The patient was brought into the angio suite and positioned in the supine position on the fluoroscopic table. Sedation was administered without any complications. Bilatera l groins were shaved, prepped and draped in usual standard sterile fashion. Time out and appropriat e site was marked and confirmed. Local anesthesia was then infiltrated in the region of the bilater al common femoral veins. The bilateral common femoral veins were then cannulated with a micro access needle under ultrasound guidance and a guidewire was advanced into the iliac vein under fluoroscopic guidance. The needle w as then removed and a microcatheter was placed. At this point, the wires were removed and venograph y was performed. Findings are noted above. At this point, it was decided to not intervene as no si gnificant stenosis or thrombosis was identified except the patient did have a small caliber external iliac vein. Patient did seem to have some compression of the external iliac/common iliac vein junc tion in which should the patient have further worsening of his lower extremities, we will plan to in tervene with intravascular ultrasound and possible stenting if needed. At this point, all catheters , wires and sheaths were removed. The patient tolerated the procedure well and was taken to postane sthesia care unit in stable condition. PLAN: We will have the patient resume his anticoagulation and will continue with the recommendation of lower extremity compression stockings or 2 to 3-layer compression therapies. We will have the p atient follow up in a short period of time. Dictated By: ASH KNOWLES/FERNIE Conf#: [id number] DID#: [id number]
--- NOTE | 2017-07-18 15:57 | RADRPT ---
Vent Rate: 78 bpm RR Interval: 0 msec RI Interval: 150 msec QRS Duration: 80 msec QT Interval: 388 msec QTC Interval: 442 msec P-R-T [place]: 68 - 67 - 67 degrees Normal sinus rhythm Normal ECG Electronically Signed By: Paolo Gallagher [id number]
== END 2017-07-15 17:30 | disposition home or self-care (01) ==
LOC: SDS 08:24
PROVIDERS: ATTEND Student in an Organized Health Care Education/Training Program
DX: I82.403 Acute embolism and thrombosis of unspecified deep veins of lower extremity, bilateral (principal); I87.2 Venous insufficiency (chronic) (peripheral); I87.8 Other specified disorders of veins; J44.9 Chronic obstructive pulmonary disease, unspecified; Z79.01 Long term (current) use of anticoagulants; Z87.891 Personal history of nicotine dependence
CPT/HCPCS: 36005; 71010; 80048; 81001; 85025; 85610; 85730; 93005; C1894; J1644; J2250; J3010; Q9967; 81003

== ENCOUNTER 2017-07-21 18:14 | Inpatient (IN) | payer MEDICARE, BC ==
[~2017-07-21] VITALS: Ht 198.1 cm; Wt 84.3 kg
[~2017-07-21 18:14] MED LIST changes: -ALBU18HF INHALATION; -ALBU2.5V3 NEB; -BUDE6HFA INHALATION; +ENOX80DI2 SC
[2017-07-21 18:38] VITALS: TEMP 97.8
--- NOTE | 2017-07-21 18:47 | ERA ---
ER Documentation Chief Complaint Date/Time DATE: 07/21/17 TIME: 18:46 Chief Complaint BIB RA FOR EVAL OF BILAT LEG PAIN. HX OF DVT HPI 72-year-old male history of COPD and lower extremity DVT on Coumadin status post IVC filter placement ambulatory to the ED complaining of several week history of worsening right greater than left leg pain. Patient complains of sharp right greater than left, moderate to severe pain to the bottom of his feet which radiate up to his legs especially while standing and walking. Pain is relieved by elevating the extremities. Denies chest pain, shortness of breath or palpitations. No abdominal pain, nausea, vomiting, diarrhea or constipation. No calf pain or swelling. No fevers or chills. ROS All systems reviewed and are negative except as per history of present illness. 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, 0 TD DAILY, EA scotty 2pumps topically aa daily 06/08/17 Dutasteride* (Avodart*) 0.5 Mg Capsule, 0.5 MG PO DAILY, CAP 06/08/17 Gabapentin* (Gabapentin*) 300 Mg Capsule, 300 MG PO QHS, #90 CAP 06/08/17 Warfarin Sodium* (Coumadin*) 7.5 Mg Tablet, 7.5 MG PO DAILY, TAB 06/08/17 Lovastatin* (Lovastatin*) 20 Mg Tablet, 20 MG PO QAM, TAB 06/08/17 Discontinued Reported Medications Enoxaparin Sodium (Enoxaparin Sodium) 80 Mg/0.8 Ml Syringe, 80 MG SC DAILY, SYR STARTED ON 06-10-17 07/15/17 Albuterol Sulfate* (Ventolin HFA*) 18 Gm Hfa.aer.ad, 2 PUFF INHALATION Q4H Y for WHEEZING AND SOB, #1 INHALER 06/15/17 Albuterol Sulfate* (Albuterol Sulfate* Neb) 0.083%-3 Ml Neb, 2.5 MG NEB Q4 Y for WHEEZING AND SOB, #30 VIAL 06/15/17 Budesonide-Formoterol Fumarate* (Symbicort*) 160-4.5 Hfa.aer.ad, 2 PUFF INHALATION BID, #1 EACH 06/08/17 Allergies Allergies: Coded Allergies: Penicillins (Verified Allergy, Intermediate, 07/21/17) PMhx/Soc Reviewed in chart. As per HPI. 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 Early coronary artery disease. Physical Exam Vitals Vital Signs Date Time Temp Pulse Resp B/P Pulse Ox O2 Delivery O2 Flow Rate FiO2 07/21/17 23:05 99 16 121/84 99 Room Air 07/21/17 22:32 87 15 132/74 98 Room Air 07/21/17 22:15 17 119/86 97 Room Air 07/21/17 21:36 102 21 118/4 100 Room Air 07/21/17 21:17 105 25 111/83 100 Room Air 07/21/17 19:48 31 108/85 100 Room Air 07/21/17 19:19 130 22 157/143 100 Room Air 07/21/17 18:38 97.8 146 26 181/152 100 Room Air 07/21/17 18:25 98.1 146 18 163/123 99 Physical Exam Const: Alert, anxious, moderate distress Head: Atraumatic Eyes: Normal Conjunctiva ENT: Normal External Ears, Nose and Mouth. Neck: Full range of motion. Nontender, no JVD Resp: Clear to auscultation bilaterally Cardio: Regular rate and rhythm, no murmurs Abd: Soft, non tender, non distended. Normal bowel sounds. No pulsatile masses. Skin: No petechiae or rashes Back: No midline or flank tenderness Ext: Left lower extremity swelling. Palpable pulses bilateral lower extremities. Neur: Awake and alert. No focal deficit observed. Psych: Normal Mood and Affect Result Diagram: 07/21/17 1856 07/21/17 1856 Results 24 hrs Laboratory Tests Test 07/21/17 18:56 White Blood Count 17.410^3/ul Red Blood Count 4.5710^6/ul Hemoglobin 12.4g/dl Hematocrit 39.0% Mean Corpuscular Volume 85.3fl Mean Corpuscular Hemoglobin 27.1pg Mean Corpuscular Hemoglobin Concent 31.8g/dl Red Cell Distribution Width 14.2% Platelet Count 90933^3/UL Mean Platelet Volume 11.8fl Neutrophils % 85.4% Lymphocytes % 6.7% Monocytes % 6.0% Eosinophils % 1.0% Basophils % 0.2% Nucleated Red Blood Cells % 0.0/100WBC Neutrophils # 14.810^3/ul Lymphocytes # 1.210^3/ul Monocytes # 1.010^3/ul Eosinophils # 0.210^3/ul Basophils # 0.010^3/ul Nucleated Red Blood Cells # 0.010^3/ul Prothrombin Time 27.7Sec Prothrombin Time Ratio 2.2 INR International Normalized Ratio 2.54 Sodium Level 140mmol/L Potassium Level 5.5mmol/L Chloride Level 101mmol/L Carbon Dioxide Level 23mmol/L Anion Gap 22 Blood Urea Nitrogen 28mg/dl Creatinine 1.38mg/dl Glucose Level 150mg/dl Calcium Level 9.7mg/dl Troponin I < 0.012ng/ml Current Medications Medications (Trade) Dose Ordered Sig/Paty Route PRN Reason Start Time Stop Time Status Last Admin Dose Admin Sodium Chloride (NS) 1,000 ml @ 1,000 mls/hr Q1H STAT IV 07/21/17 18:54 07/21/17 19:53 DC 07/21/17 19:52 IV Flush 10 ml 10 ml STK-MED ONCE .ROUTE 07/21/17 20:03 07/21/17 20:04 DC 07/21/17 20:36 Sodium Chloride (NS) 100 ml @ ud STK-MED ONCE .ROUTE 07/21/17 20:03 07/21/17 20:04 DC 07/21/17 20:37 Iodixanol (Visipaque Locm) 100 ml STK-MED ONCE .ROUTE 07/21/17 20:03 07/21/17 20:04 DC 07/21/17 20:37 Iodixanol (Visipaque Locm) 50 ml STK-MED ONCE .ROUTE 07/21/17 20:03 07/21/17 20:04 DC 07/21/17 20:37 Ondansetron HCl (Zofran Inj) 4 mg BRIDGE ORDER PRN IV NAUSEA AND/OR VOMITING 07/21/17 23:30 07/22/17 23:29 Acetaminophen (Tylenol Tab) 650 mg ER BRIDGE PRN PO MILD PAIN/FEVER 07/21/17 23:30 07/22/17 23:29 Dutasteride (Avodart) 0.5 mg DAILY PO 07/22/17 09:00 UNV Gabapentin (Neurontin) 300 mg QHS PO 07/22/17 21:00 UNV Warfarin Sodium (Coumadin) 7.5 mg DAILY PO 07/22/17 09:00 UNV Miscellaneous Information 2 puff BID INHALATION 07/22/17 09:00 UNV Miscellaneous Information 20 mg QAM PO 07/22/17 09:00 UNV Acetaminophen (Tylenol Tab) 650 mg QID PRN PO PAIN LEVEL 1-5 07/21/17 23:30 UNV Ondansetron HCl (Zofran Inj) 4 mg Q6H PRN IV NAUSEA AND/OR VOMITING 07/21/17 23:30 UNV Acetaminophen/ Hydrocodone Bitart (Vardaman (5/325)) 1 tab Q4H PRN PO PAIN LEVEL 4-7 07/21/17 23:30 UNV Morphine Sulfate (morphine SULFATE IV (NICU)) 2 mg Q4H PRN IV MODERATE PAIN LEVEL 4-6 07/21/17 23:30 UNV PROCEDURE: CT ANGIOGRAM ABDOMEN PELVIS AND LOWER EXTREMITY RUNOFF CLINICAL INDICATION: 72 years of age, male. Lower extremity pain. Left flank pain TECHNIQUE: A CT angiogram of the abdomen and pelvis with lower extremity runoff was performed with intravenous contrast. The patient was scanned following the intravenous administration of 125 mL of Visipaque 320. Coronal and sagittal reformatted images were obtained from the axial source images. Images were reviewed on a high-resolution PACS workstation. 3-D post processing was performed. Maximum intensity projection images were reconstructed on PACS. CTDIvol: 28 and 5 mGy. DLP: 837 mGy-cm. One or more of the following dose reduction techniques were used: - Automated exposure control. - Adjustment of the mA and/or kV according to patient size. - Use of iterative reconstruction technique. COMPARISON: None available. FINDINGS: AORTA AND LOWER EXTREMITY ARTERIES: AORTA AND BRANCHES: Aorta: Atherosclerosis of the abdominal aorta with an infrarenal aneurysm that measures 3 x 3.3 cm at the CARMITA (3/279). There is irregular noncalcified plaque within the aneurysm lumen. Superior extent of aneursym is 5.7 cm inferior to the renal arteries and terminates above the aortic bifurcation. Renal arteries: There are single right and two left renal arteries. Renal arteries are widely patent. Second left renal artery is a small accessory vessel. There is ulcerated atherosclerotic plaque at the origin of the right renal artery without high-grade stenosis. There is a 1.9 cm saccular aneurysm arising from the distal left renal artery with a patent lumen (2/44). Celiac Kimberly, SMA and CARMITA: Conventional anatomy. Widely patent. ILIAC ARTERIES: Right iliac arteries: Atherosclerotic calcification of common and external iliac arteries without high-grade stenosis. Internal iliac artery is patent without aneurysm. Left iliac arteries:Atherosclerotic calcification of common and external iliac arteries without high-grade stenosis. Internal iliac artery is patent without aneurysm. RIGHT LOWER EXTREMITY: Right common and superficial femoral arteries are widely patent. There is a partially thrombosed aneurysm of the above-knee popliteal artery. Aneurysm measures 3.5 x 3.5 cm in transverse diameter (4/827) and 6.4 cm in length (604/ 60). The aneurysm is mostly thrombosed and the patent lumen is severely narrowed measuring 0.4 x 1.6 cm in diameter. Inferiorly, the patent lumen increases and measures 1.4 x 1.7 cm. Below knee popliteal artery is patent. Tibioperoneal trunk is patent. Anterior tibial, peroneal and posterior tibial arteries are patent to the level of the midcalf. These arteries are not opacified in the distal calf that may be due to slow flow. LEFT LOWER EXTREMITY: Left common femoral, superficial femoral and popliteal arteries are widely patent. There is atherosclerosis of the above-knee popliteal artery with mild aneurysmal dilatation measuring a 1.2 x 1.5 cm (4/934). There is irregular atherosclerotic plaque throughout the aneurysmal above-knee popliteal artery resulting in 30% stenosis of the aneurysm lumen inferiorly. Negative for high- grade stenosis. Below knee popliteal artery and tibioperoneal trunk are patent. Anterior tibial, posterior tibial and peroneal arteries are visualized in the proximal calf. However, the arteries are not visualized in the mid and distal calf that may be due to slow flow rather than occlusion. LUNG BASES, ABDOMEN AND PELVIS: Evaluation of solid visceral organs and veins is limited on arterial phase imaging of the abdomen and pelvis. Lung Bases: Emphysema bilateral lung bases. Liver: Reflux of contrast into the hepatic veins suggests a degree of right heart dysfunction. Hypodensities in the right and left lobes of the liver measuring up to 1 cm likely represent cysts. They are incompletely characterized. Gallbladder: Normal. Biliary tree: No intrahepatic or extrahepatic biliary duct dilatation. Spleen: No significant abnormality. Pancreas: No significant abnormality. Adrenal glands: There are bilateral adrenal nodules measuring 2.1 cm on the right and 3.7 cm on the left. Kidneys and ureters: Small bilateral renal parenchymal cysts. There are bilateral nonobstructing renal calculi that are more numerous on the left. Calculi measure up to 0.4 cm. Negative for ureteral calculi or hydronephrosis IVC and iliac veins: There is an IVC filter in the infrarenal IVC. Evaluation of the vein patency is not possible due to the phase of the contrast injection. There is calcified thrombus within the IVC filter. Infrarenal IVC is distended and there is enlargement of the bilateral common iliac veins, left internal iliac vein, right external iliac vein and right common femoral vein and right superficial femoral vein with edema in the surrounding fat suggesting DVT. There are enlarged collateral veins coursing through the left obturator ring. There is soft tissue edema in the left lower extremity extending to the ankle with enlarged superficial veins. There is enlargement of the deep veins and bilateral lower extremities in keeping with a bilateral lower extremity DVT. Lymph nodes: No lymphadenopathy. Gastrointestinal tract: Colonic diverticulosis greatest in the sigmoid and descending colon without diverticulitis. Appendix: Normal Bladder: Mildly thick-walled that may be due to hypertrophy. Pelvic organs: Enlarged prostate gland indents bladder base and measures 4.4 x 5.1 x 5.5 cm. Seminal vesicles are symmetrical. Peritoneal cavity: No free fluid or free air. Abdominal wall: No significant abnormality. Musculoskeletal: Degenerative changes in the lumbar spine with curvature convex left. Bipartate left patella. No suspicious bone lesions. IMPRESSION: 1. Infrarenal abdominal aortic aneurysm measures up to 3.3 cm. 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 2. 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 No other high-grade stenoses are identified in the major arteries of the right lower extremity. Calf arteries are visualized to the level of the midcalf. Nonvisualization of the distal right calf arteries may be due to slow flow rather than occlusion. 3. 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 Negative for evidence of high-grade stenosis in the major arteries of the left lower extremity. Calf arteries are visualized to the proximal calf. Nonvisualization of the mid and distal left calf arteries may be due to slow flow rather than occlusion. 4. IVC filter. Evaluation of the patency of the veins is not possible on this arterial phase scan. However, infrarenal IVC, iliac veins and bilateral leg veins are enlarged with surrounding edema in keeping with extensive bilateral lower extremity and IVC thrombus. There is edema of the left lower extremity with multiple superficial venous collaterals. There is a calcified clot within the IVC filter. 5. Bilateral adrenal nodules measuring up to 3.7 cm on the left. In the absence of a known primary neoplasm, adrenal nodules measuring less than 4 cm are statistically benign. Recommend correlation with endocrine studies to evaluate for a functioning adenoma or pheochromocytoma and consider follow-up adrenal gland CT in 12 months or correlation with previous imaging. If there is a known primary neoplasm, adrenal metastases must be considered . 6. Enlarged prostate gland. Thick-walled urinary bladder likely due to hypertrophy. Colonic diverticulosis without diverticulitis. Bilateral nonobstructing renal calculi. Findings were discussed with Dr. Tatum by Dr. Darlene Mari on July 21, 2017 at 10:11 p.m. Vascular surgery consultation is advised. RPTAT: HCTS Physician Edmundo Date Time Electronically viewed and signed by Physician Edmundo on 07/21/2017 22: 18 CS/ Procedures/MDM DOCUMENTS REVIEWED: ED nurse, prior ED, prior records including recent venogram of the lower extremities on 10/7. MEDICAL DECISION MAKIN-year-old male history of COPD and lower extremity DVT on Coumadin status post IVC filter placement ambulatory to the ED complaining of several week history of worsening right greater than left leg pain. CT angiogram with bilateral runoff reveals right greater than left popliteal artery aneurysms. Patient has no signs of acute arterial occlusion or limb ischemia. Patient [facility] for urgent surgical evaluation andintervention. Counseled patient regarding diagnosis, diagnostic results and plan for admission. CALLS/CONSULTS: Time 18:49, Dr. Ash Mendiola, Recommends CT angiogram of the abdomen pelvis with bilateral runoff to rule out popliteal aneurysm. CALLS/CONSULTS: Time 22:30, Dr. Ash Mendiola. CT angiographic findings discussed. Recommends admission for surgical resection. CALLS/CONSULTS: Time 22:40, Dr. Drake. PATIENT CARE TRANSITIONED: Time: 22:50, Dr. Drake Departure Diagnosis: Primary Impression: Bilateral leg pain Additional Impressions: Popliteal artery aneurysm, bilateral DVT of leg (deep venous thrombosis) Qualified Code: I82.403 - Deep vein thrombosis (DVT) of both lower extremities , unspecified chronicity, unspecified vein Anticoagulated on Coumadin Condition: Serious CHRISTEL TATUM MD Jul 21, 2017 18:47
[2017-07-21] MEDS ORDERED: SOD CHLORIDE 0.9% 1,000 ML IV STA (18:54)
[2017-07-21 19:21] LABS: BASOPHILS % 0.2 % (0.0-2.0); EOSINOPHILS # 0.2 10^3/ul (0.0-0.5); HEMOGLOBIN 12.4 g/dl (14.0-18.0); LYMPHOCYTES # 1.2 10^3/ul (0.8-2.9); LYMPHOCYTES % 6.7 % (15.0-51.0); MEAN CORPUSCULAR HEMOGLOBIN 27.1 pg (29.0-33.0); MEAN CORPUSCULAR HGB CONC 31.8 g/dl (32.0-37.0); MEAN CORPUSCULAR VOLUME 85.3 fl (82.0-101.0); MEAN PLATELET VOLUME 11.8 fl (7.4-10.4); NEUTROPHIL # 14.8 10^3/ul (1.6-7.5); NEUTROPHILS % 85.4 % (39.0-77.0); PLATELET COUNT 113 10^3/UL (140-415); RED BLOOD COUNT 4.57 10^6/ul (4.70-6.10); RED CELL DISTRIBUTION WIDTH 14.2 % (11.5-14.5); WHITE BLOOD COUNT 17.4 10^3/ul (4.8-10.8)
[2017-07-21 19:38] LABS: INR 2.54; PROTIME 27.7 Sec (12.2-14.2); PT RATIO 2.2
[2017-07-21 19:40] LABS: ANION GAP 22 (8-16); BLOOD UREA NITROGEN 28 mg/dl (7-20); CALCIUM 9.7 mg/dl (8.4-10.2); CARBON DIOXIDE 23 mmol/L (21-31); CHLORIDE 101 mmol/L (97-110); CREATININE 1.38 mg/dl (0.61-1.24); GLUCOSE 150 mg/dl (70-220); POTASSIUM 5.5 mmol/L (3.5-5.1); SODIUM 140 mmol/L (135-144)
[2017-07-21 19:51] LABS: TROPONIN-I < 0.012 ng/ml (0.00-0.12)
[2017-07-21] MEDS ORDERED: IODIXANOL LOCM 50 ML BTL ONE (20:03)
[2017-07-21] MEDS ORDERED: IODIXANOL LOCM 100 ML BTL ONE (20:03)
[2017-07-21] MEDS ORDERED: SOD CHLORIDE 0.9% 100 ML ONE (20:03)
--- NOTE | 2017-07-21 20:21 | RADRPT ---
PROCEDURE: XR Chest. CLINICAL INDICATION: Tachycardia. TECHNIQUE: Single frontal chest x-ray. COMPARISON: 07/15/2017 FINDINGS: The cardiomediastinal silhouette is unremarkable. There is no congestive heart failure.. No focal i nfiltrate is seen. There is an unchanged right upper lobe dense calcification compatible granuloma. There is no pleural effusion. There is no pneumothorax. The osseous structures are unremarkable. IMPRESSION: No acute change. Right upper lobe granuloma. No CHF or infiltrate. RPTAT: HMVK .Cory Goodman MD, Date Time Electronically viewed and signed by .Cory Goodman MD, on 07/21/2017 20:20 .K/
[2017-07-21] MEDS ORDERED: BUDE6HFA INHALATION (21:49)
--- NOTE | 2017-07-21 22:19 | RADRPT ---
PROCEDURE: CT ANGIOGRAM ABDOMEN PELVIS AND LOWER EXTREMITY RUNOFF CLINICAL INDICATION: 72 years of age, male. Lower extremity pain. Left flank pain TECHNIQUE: A CT angiogram of the abdomen and pelvis with lower extremity runoff was performed with intravenous contrast. The patient was scanned following the intravenous administration of 125 mL o f Visipaque 320. Coronal and sagittal reformatted images were obtained from the axial source images . Images were reviewed on a high-resolution PACS workstation. 3-D post processing was performed. Ma ximum intensity projection images were reconstructed on PACS. CTDIvol: 28 and 5 mGy. DLP: 837 mGy-cm. One or more of the following dose reduction techniques were used: - Automated exposure control. - Adjustment of the mA and/or kV according to patient size. - Use of iterative reconstruction technique. COMPARISON: None available. FINDINGS: AORTA AND LOWER EXTREMITY ARTERIES: AORTA AND BRANCHES: Aorta: Atherosclerosis of the abdominal aorta with an infrarenal aneurysm that measures 3 x 3.3 cm a t the CARMITA (3/279). There is irregular noncalcified plaque within the aneurysm lumen. Superior extent of aneursym is 5.7 cm inferior to the renal arteries and terminates above the aortic bifurcation. Renal arteries: There are single right and two left renal arteries. Renal arteries are widely patent . Second left renal artery is a small accessory vessel. There is ulcerated atherosclerotic plaque at the origin of the right renal artery without high-grade stenosis. There is a 1.9 cm saccular aneury sm arising from the distal left renal artery with a patent lumen (2/44). Celiac [place], SMA and CARMITA: Conventional anatomy. Widely patent. ILIAC ARTERIES: Right iliac arteries: Atherosclerotic calcification of common and external iliac arteries without hi gh-grade stenosis. Internal iliac artery is patent without aneurysm. Left iliac arteries:Atherosclerotic calcification of common and external iliac arteries without high -grade stenosis. Internal iliac artery is patent without aneurysm. RIGHT LOWER EXTREMITY: Right common and superficial femoral arteries are widely patent. There is a partially thrombosed ane urysm of the above-knee popliteal artery. Aneurysm measures 3.5 x 3.5 cm in transverse diameter (4/8 27) and 6.4 cm in length (604/60). The aneurysm is mostly thrombosed and the patent lumen is severel y narrowed measuring 0.4 x 1.6 cm in diameter. Inferiorly, the patent lumen increases and measures 1 .4 x 1.7 cm. Below knee popliteal artery is patent. Tibioperoneal trunk is patent. Anterior tibial, peroneal and posterior tibial arteries are patent to the level of the midcalf. These arteries are no t opacified in the distal calf that may be due to slow flow. LEFT LOWER EXTREMITY: Left common femoral, superficial femoral and popliteal arteries are widely patent. There is atheros clerosis of the above-knee popliteal artery with mild aneurysmal dilatation measuring a 1.2 x 1.5 cm (). There is irregular atherosclerotic plaque throughout the aneurysmal above-knee popliteal a rtery resulting in 30% stenosis of the aneurysm lumen inferiorly. Negative for high-grade stenosis. Below knee popliteal artery and tibioperoneal trunk are patent. Anterior tibial, posterior tibial an d peroneal arteries are visualized in the proximal calf. However, the arteries are not visualized in the mid and distal calf that may be due to slow flow rather than occlusion. LUNG BASES, ABDOMEN AND PELVIS: Evaluation of solid visceral organs and veins is limited on arterial phase imaging of the abdomen an d pelvis. Lung Bases: Emphysema bilateral lung bases. Liver: Reflux of contrast into the hepatic veins suggests a degree of right heart dysfunction. Hypod ensities in the right and left lobes of the liver measuring up to 1 cm likely represent cysts. They are incompletely characterized. Gallbladder: Normal. Biliary tree: No intrahepatic or extrahepatic biliary duct dilatation. Spleen: No significant abnormality. Pancreas: No significant abnormality. Adrenal glands: There are bilateral adrenal nodules measuring 2.1 cm on the right and 3.7 cm on the left. Kidneys and ureters: Small bilateral renal parenchymal cysts. There are bilateral nonobstructing felipe al calculi that are more numerous on the left. Calculi measure up to 0.4 cm. Negative for ureteral c alculi or hydronephrosis IVC and iliac veins: There is an IVC filter in the infrarenal IVC. Evaluation of the vein patency is not possible due to the phase of the contrast injection. There is calcified thrombus within the IVC filter. Infrarenal IVC is distended and there is enlargement of the bilateral common iliac veins, l eft internal iliac vein, right external iliac vein and right common femoral vein and right superfici al femoral vein with edema in the surrounding fat suggesting DVT. There are enlarged collateral vein s coursing through the left obturator ring. There is soft tissue edema in the left lower extremity e xtending to the ankle with enlarged superficial veins. There is enlargement of the deep veins and bi lateral lower extremities in keeping with a bilateral lower extremity DVT. Lymph nodes: No lymphadenopathy. Gastrointestinal tract: Colonic diverticulosis greatest in the sigmoid and descending colon without diverticulitis. Appendix: Normal Bladder: Mildly thick-walled that may be due to hypertrophy. Pelvic organs: Enlarged prostate gland indents bladder base and measures 4.4 x 5.1 x 5.5 cm. Seminal vesicles are symmetrical. Peritoneal cavity: No free fluid or free air. Abdominal wall: No significant abnormality. Musculoskeletal: Degenerative changes in the lumbar spine with curvature convex left. Bipartate left patella. No suspicious bone lesions. IMPRESSION: 1. Infrarenal abdominal aortic aneurysm measures up to 3.3 cm. 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 2. 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 No other high-grade stenoses are identified in the major arteries of the right lower extremity. Calf arteries are visualized to the level of the midca lf. Nonvisualization of the distal right calf arteries may be due to slow flow rather than occlusion . 3. Left popliteal artery aneurysm measures 1.5 cm withluminal thrombus but without high-grade stenos is. Negative for evidence of high-grade stenosis in the major arteries of the left lower extremity. Calf arteries are visualized to the proximal calf. Nonvisualization of the mid and distal left calf arteries may be due to slow flow rather than occlusion. 4. IVC filter. Evaluation of the patency of the veins is not possible on this arterial phase scan. H owever, infrarenal IVC, iliac veins and bilateral leg veins are enlarged with surrounding edema in k eeping with extensive bilateral lower extremity and IVC thrombus. There is edema of the left lower e xtremity with multiple superficial venous collaterals. There is a calcified clot within the IVC filt er. 5. Bilateral adrenal nodules measuring up to 3.7 cm on the left. In the absence of a known primary n eoplasm, adrenal nodules measuring less than 4 cm are statistically benign. Recommend correlation w ith endocrine studies to evaluate for a functioning adenoma or pheochromocytoma and consider follow- up adrenal gland CT in 12 months or correlation with previous imaging. If there is a known primary n eoplasm, adrenal metastases must be considered . 6. Enlarged prostate gland. Thick-walled urinary bladder likely due to hypertrophy. Colonic divertic ulosis without diverticulitis. Bilateral nonobstructing renal calculi. Findings were discussed with Dr. Anne by Dr. Darlene Mari on July 21, 2017 at 10:11 p.m. [facility] surgery consultation is advised. RPTAT: HCTS Denzel Mari Physician Date Time Electronically viewed and signed by Denzel Mari, Physician on 07/21/2017 22:18 CS/
[2017-07-21] MEDS ORDERED: ACETAMINOPHEN 325 MG TAB PO PRN ×2 (23:30)
[2017-07-21] MEDS ORDERED: ONDANSETRON 4 MG INJ IV PRN (23:30)
[2017-07-22 01:46] VITALS: BP 129/86; RESP 18
[2017-07-22] MEDS: ZOLPIDEM 5 MG TAB PO PRN (03:02)
[2017-07-22 07:55] VITALS: BP 112/69; RESP 18
[2017-07-22 08:41] LABS: BASOPHIL # 0.1 10^3/ul (0.0-0.1); BASOPHILS % 0.3 % (0.0-2.0); EOSINOPHILS # 0.1 10^3/ul (0.0-0.5); EOSINOPHILS % 0.7 % (0.0-7.0); HEMATOCRIT 36.5 % (42.0-52.0); HEMOGLOBIN 11.4 g/dl (14.0-18.0); LYMPHOCYTES # 1.7 10^3/ul (0.8-2.9); LYMPHOCYTES % 11.4 % (15.0-51.0); MEAN CORPUSCULAR HEMOGLOBIN 26.8 pg (29.0-33.0); MEAN CORPUSCULAR HGB CONC 31.2 g/dl (32.0-37.0); MEAN CORPUSCULAR VOLUME 85.9 fl (82.0-101.0); MEAN PLATELET VOLUME 11.5 fl (7.4-10.4); MONOCYTE # 1.4 10^3/ul (0.3-0.9); NEUTROPHIL # 11.7 10^3/ul (1.6-7.5); PLATELET COUNT 113 10^3/UL (140-415); POSITIVE DIFF @See below; RED BLOOD COUNT 4.25 10^6/ul (4.70-6.10); RED CELL DISTRIBUTION WIDTH 14.4 % (11.5-14.5)
[2017-07-22] MEDS: FAMOTIDINE 20 MG INJ IV SCH ×2 (08:58→21:19)
[2017-07-22] MEDS: DUTASTERIDE 0.5 MG CAP PO SCH (08:58)
[2017-07-22] MEDS: ATORVASTATIN 10 MG TAB PO SCH (08:58)
[2017-07-22 09:01] LABS: INR 2.83; PROTIME 30.1 Sec (12.2-14.2); PT RATIO 2.4
[2017-07-22 09:02] LABS: PARTIAL THROMBOPLASTIN TIME 65.5 Sec (25.0-35.0)
[2017-07-22] MEDS: SALMETEROL/FLUTICASONE 250/50 INHA INH SCH ×2 (09:04→21:20)
[2017-07-22 09:06] LABS: ALBUMIN/GLOBULIN RATIO 1.14; BILIRUBIN,INDIRECT 0.4 mg/dl (0-1.1); BILIRUBIN,TOTAL 0.4 mg/dl (0.2-1.3); CALCIUM 9.4 mg/dl (8.4-10.2); CREATININE 1.08 mg/dl (0.61-1.24); POTASSIUM 4.9 mmol/L (3.5-5.1); TOTAL PROTEIN 7.5 g/dl (6.1-8.1)
[2017-07-22] MEDS: HYDROCODONE/APAP (5/325) TAB PO PRN ×2 (11:48→21:19)
[2017-07-22] MEDS: ONDANSETRON 4 MG INJ IV PRN (11:48)
--- NOTE | 2017-07-22 13:16 | HP ---
Date/Time of Note Date/Time of Note DATE: 07/22/17 TIME: 13:02 Assessment/Plan VTE Prophylaxis VTE Prophylaxis Intervention: SCD's Lines/Catheters IV Catheter Type (from Nrsg): Saline Lock Assessment/Plan Assessment/Plan Right lower extremity pain, continue [place] and morphine as needed for pain. 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 Mendiola is following in vascular surgery consultation. Continue Coumadin. Left leg DVT COPD Dyslipidemia Further recommendations based on clinical course. Plan of care discussed with Dr. Drake HPI/ROS Admit Date/Time Admit Date/Time Jul 21, 2017 at 23:03 Hx of Present Illness The patient is a 72-year-old male with history of left lower extremity DVT status post IVC filter placement 2007. Patient is on Coumadin with therapeutic INR on admission. Patient was undergoing evaluation of right lower extremity pain and underwent angiogram on July [address] Mendiola. Patient developed right lower extremity severe pain especially with ambulation. Patient underwent abdominal angiogram which revealed bilateral popliteal artery aneurysm with right popliteal artery aneurysm measures 3.5 cm in transverse diameter with luminal thrombus resulting in high-grade stenosis of the patent lumen. Patient denies any fever chills, patient denies any chest pain denies shortness of breath denies abdominal pain. Patient is admitted for further evaluation and management. PMH/Family/Social Past Medical History Left leg DVT COPD Dyslipidemia . Past Surgical History Status post IVC placement in 2007 Status post angiogram 1 week ago Family History Significant Family History: no pertinent family hx Social History Alcohol Use: none Smoking Status: Former smoker Drug Use: marijuana Exam/Review of Systems Vital Signs Vitals Vital Signs Date Time Temp Pulse Resp B/P Pulse Ox O2 Delivery O2 Flow Rate FiO2 07/22/17 07:55 98.6 111 18 112/69 95 07/22/17 00:30 Room Air Labs Result Diagram: 07/22/17 0750 07/22/17 0750 Medications Medications Current Medications Dutasteride (Avodart) 0.5 mg DAILY PO Last administered on 07/22/17t 08:58; Admin Dose 0.5 MG; Start 07/22/17 at 09:00 Gabapentin (Neurontin) 300 mg QHS PO ; Start 07/22/17 at 21:00 Warfarin Sodium (Coumadin) 7.5 mg DAILY@17 PO ; Start 07/22/17 at 17:00; Status Future Hold Salmeterol Xinafoate/ Fluticasone (Advair 250/50 Diskus) 1 inh BID INH Last administered on 07/22/17 09:04; Admin Dose 1 INH; Start 07/22/17 at 09:00 Atorvastatin Calcium (Lipitor) 10 mg QAM PO Last administered on 07/22/17 08: 58; Admin Dose 10 MG; Start 07/22/17 at 09:00 Acetaminophen (Tylenol Tab) 650 mg QID PRN PO PAIN LEVEL 1-5; Start 07/21/17 at 23:30 Ondansetron HCl (Zofran Inj) 4 mg Q6H PRN IV NAUSEA AND/OR VOMITING Last administered on 07/22/17 11:48; Admin Dose 4 MG; Start 07/21/17 at 23:30 Acetaminophen/ Hydrocodone Bitart ([place] (5/325)) 1 tab Q4H PRN PO PAIN LEVEL 4 -7 Last administered on 07/22/17 11:48; Admin Dose 1 TAB; Start 07/21/17 at 23:30 Morphine Sulfate (morphine) 2 mg Q4H PRN IV MODERATE PAIN LEVEL 4-6; Start at 23:30 Famotidine (Pepcid Iv) 20 mg BID IV Last administered on 07/22/17 08:58; Admin Dose 20 MG; Start 07/22/17 at 09:00 Influenza Virus Vaccine (Fluzone) 0.5 ml ONCE ONCE IM* ; Start 07/23/17 at 09: 00; Stop 07/23/17 at 09:01 LISETTE MEDINA Jul 22, 2017 13:12
[2017-07-22 14:00] VITALS: BP 115/64; RESP 18
[2017-07-22] MEDS: ALBUTEROL 18 GM INHALER INH SCH ×2 (14:00→21:20)
[2017-07-22] MEDS ORDERED: WARFARIN 7.5 MG TAB PO SCH (17:00)
[2017-07-22] MEDS: morphine 2 MG INJ IV PRN ×2 (18:37→23:16)
[2017-07-22 19:42] VITALS: BP 131/73; RESP 20
[2017-07-22] MEDS: GABAPENTIN 300 MG CAP PO SCH (21:19)
--- NOTE | 2017-07-22 22:21 | RADRPT ---
PROCEDURE: CT brain without contrast. CLINICAL INDICATION: Altered mental status. TECHNIQUE: CT scan of the brain was performed on a multi-detector high-resolution CT scanner. Co ntiguous axial images were obtained from the skull base to the vertex without intravenous contrast. Coronal and sagittal reformatted images were also obtained. Images were reviewed on the PACS works tation. One or more of the following dose reduction techniques were used: - Automated exposure control. - Adjustment of the mA and/or kV according to patient size. - Use of iterative reconstruction technique. Exam CTD/vol = 44.84 mGy. Total exam DLP = 720.23 mGy-cm. COMPARISON: None. FINDINGS: The ventricles and cortical sulci are prominent consistent with mild age related volume loss. There are patchy areas of low attenuation within the periventricular and subcortical white matter consist ent with minimal chronic ischemic changes secondary to small vessel disease. There is no mass effec t or midline shift. There is no intracranial hemorrhage or abnormal extra-axial collection. There a re mild atherosclerotic calcifications within bilateral distal internal carotid arteries. The calvarium is intact. There is no evidence of fracture. Visualized paranasal sinuses and mastoi d air cells are clear. IMPRESSION: No acute intracranial abnormality identified. Mild age related volume loss and chronic ischemic white matter disease. Mild cerebral atherosclerosis. .Brian Pak MD, Date Time Electronically viewed and signed by .Brian Pak MD, MD on 07/22/2017 22:21 .T/
--- NOTE | 2017-07-22 23:46 | CONS ---
Date/Time of Note Date/Time of Note DATE: 07/22/17 TIME: 23:42 Assessment/Plan Assessment/Plan Problems: (1) Right foot pain (2) Right ankle pain (3) Anterior tibialis tendinitis of right leg (4) Epididymitis Status: Acute (5) DVT of leg (deep venous thrombosis) Status: Acute Qualifiers: Qualified Code: I82.403 - Deep vein thrombosis (DVT) of both lower extremities, unspecified chronicity, unspecified vein (6) Bilateral leg pain Status: Acute (7) Popliteal artery aneurysm, bilateral Status: Acute Additional Assessment/Plan Patient will be undergoing vascular procedure by Dr. Mendiola. Pending results , I will reevaluate patient's right foot and ankle. If his pain continues, he may require a CT of the right foot and ankle. I will follow patient in-house. Thank you again for involving me in the care of this patient. If you have any questions regarding this case, please feel free to contact me at pager: or reach me at mobile: [phone]. Consultation Date/Type/Reason Admit Date/Time Jul 21, 2017 at 23:03 Date of Consultation: Jul 22, 2017 Type of Consultation: Foot and ankle surgery Reason for Consultation Evaluation of right ankle and foot pain Hx of Present Illness Thank you very much for involving me in the care of this patient. As you very well know this is a 72-year-old male patient with history of left lower extremity deep venous thrombosis who is status post IVC filter placement in 2007. Patient is currently on Coumadin. He is undergoing vascular evaluation by Dr. Mendiola and will be undergoing lower extremity arterial procedure this week. I was consulted for evaluation of pain in the right foot and ankle. Patient reports pain in the ankle and dorsal aspect of the right foot and points to the tibialis anterior and a red spot on the top of his right foot. He denies trauma to the area and reports no fever and chills. Constitutional: no complaints Eyes: no complaints ENT: no complaints Respiratory: no complaints Gastrointestinal: no complaints Genitourinary: no complaints Past Medical History As per history of present illness. Past Surgical History As per history of present illness. Social History As per history of present illness. Alcohol Use: none Smoking Status: Former smoker Drug Use: marijuana Exam/Review of Systems Vital Signs Vitals Vital Signs Date Time Temp Pulse Resp B/P Pulse Ox O2 Delivery O2 Flow Rate FiO2 07/22/17 19:42 100.3 107 20 131/73 95 07/22/17 00:30 Room Air Exam Patient is in no acute distress laying supine in bed. Right ankle is tender at the tibialis anterior area. There is erythema of the dorsal aspect of the right foot which is also tender to palpation. No underlying fluctuance noted and no open wound present. Dorsalis pedis is nonpalpable posterior tibial pulse is weak. Left foot shows no lesions and open wounds. Pedal pulses are palpable in the left lower extremity. Labs reviewed. Results Result Diagram: 07/22/17 0750 07/22/17 0750 Results 24 hrs Laboratory Tests Test 07/22/17 07:50 White Blood Count 15.0 H Red Blood Count 4.25 L Hemoglobin 11.4 L Hematocrit 36.5 L Mean Corpuscular Volume 85.9 Mean Corpuscular Hemoglobin 26.8 L Mean Corpuscular Hemoglobin Concent 31.2 L Red Cell Distribution Width 14.4 Platelet Count 113 L Mean Platelet Volume 11.5 H Neutrophils % 78.0 H Lymphocytes % 11.4 L Monocytes % 9.0 Eosinophils % 0.7 Basophils % 0.3 Nucleated Red Blood Cells % 0.0 Neutrophils # 11.7 H Lymphocytes # 1.7 Monocytes # 1.4 H Eosinophils # 0.1 Basophils # 0.1 Nucleated Red Blood Cells # 0.0 Prothrombin Time 30.1 H Prothrombin Time Ratio 2.4 INR International Normalized Ratio 2.83 Activated Partial Thromboplast Time 65.5 H Sodium Level 142 Potassium Level 4.9 Chloride Level 103 Carbon Dioxide Level 27 Anion Gap 17 H Blood Urea Nitrogen 29 H Creatinine 1.08 Glucose Level 98 # Calcium Level 9.4 Total Bilirubin 0.4 Direct Bilirubin 0.00 Indirect Bilirubin 0.4 Aspartate Amino Transf (AST/SGOT) 17 Alanine Aminotransferase (ALT/SGPT) 27 Alkaline Phosphatase 74 Total Protein 7.5 Albumin 4.0 Globulin 3.50 H Albumin/Globulin Ratio 1.14 Medications Medications Current Medications Dutasteride (Avodart) 0.5 mg DAILY PO Last administered on 07/22/17t 08:58; Admin Dose 0.5 MG; Start 07/22/17 at 09:00 Gabapentin (Neurontin) 300 mg QHS PO Last administered on 07/22/17 21:19; Admin Dose 300 MG; Start 07/22/17 at 21:00 Warfarin Sodium (Coumadin) 7.5 mg DAILY@17 PO Last administered on 07/22/17 17:44; Admin Dose 7.5 MG; Start 07/22/17 at 17:00; Status Future Hold Salmeterol Xinafoate/ Fluticasone (Advair 250/50 Diskus) 1 inh BID INH Last administered on 07/22/17 21:20; Admin Dose 1 INH; Start 07/22/17 at 09:00 Atorvastatin Calcium (Lipitor) 10 mg QAM PO Last administered on 07/22/17 08: 58; Admin Dose 10 MG; Start 07/22/17 at 09:00 Acetaminophen (Tylenol Tab) 650 mg QID PRN PO PAIN LEVEL 1-5; Start 07/21/17 at 23:30 Ondansetron HCl (Zofran Inj) 4 mg Q6H PRN IV NAUSEA AND/OR VOMITING Last administered on 07/22/17 11:48; Admin Dose 4 MG; Start 07/21/17 at 23:30 Acetaminophen/ Hydrocodone Bitart ([place] (5/325)) 1 tab Q4H PRN PO PAIN LEVEL 4 -7 Last administered on 07/22/17 21:19; Admin Dose 1 TAB; Start 07/21/17 at 23:30 Morphine Sulfate (morphine) 2 mg Q4H PRN IV MODERATE PAIN LEVEL 4-6 Last administered on 07/22/17 23:16; Admin Dose 2 MG; Start 07/21/17 at 23:30 Famotidine (Pepcid Iv) 20 mg BID IV Last administered on 07/22/17 21:19; Admin Dose 20 MG; Start 07/22/17 at 09:00 Influenza Virus Vaccine (Fluzone) 0.5 ml ONCE ONCE IM* ; Start 07/23/17 at 09: 00; Stop 07/23/17 at 09:01 VIVEK PACE DPM Jul 22, 2017 23:46
[2017-07-23 00:45] LABS: INR 3.03; PROTIME 31.8 Sec (12.2-14.2); PT RATIO 2.5
[2017-07-23 00:47] LABS: PARTIAL THROMBOPLASTIN TIME 62.3 Sec (25.0-35.0)
--- NOTE | 2017-07-23 01:15 | CONS ---
DATE OF ADMISSION: 07/21/2017 DATE OF CONSULTATION: 07/22/2017 VASCULAR SURGERY CONSULTATION Dear Doctors: Mr. Abel is a 72-year-old gentleman who presented to [facility] secondary to increased right lower extremity discomfort and pain upon standing. The patient mentioned he has radiating pain that goes down his right lower leg and also extends up to his right upper thigh that developed over the past 2 to 3 days with worsening scrotal pain over the past few weeks. At the moment, the patient denies shortness of breath, chest pain, nausea, vomiting, fever or chills. The patient has been seen by our vascular surgery office secondary to his left lower extremity venous insufficiency and recurrent left venous stasis ulcers that have been on and off venous stasis ulcerations. At the moment, the patient has undergone an ultrasound of the right lower extremity that identified having aneurysmal findings of his right superficial femoral artery, and CT angiography of the lower extremities was performed. 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 Patient has been placed on lifelong Coumadin and he is currently therapeutic with INR of greater than 2 and unclear hypercoagulable workup. His CT angiography demonstrated patient having a significantly large aneurysmal distal superficial femoral artery and above knee popliteal artery aneurysm measuring about 3 cm. REVIEW OF SYSTEMS: A 14-point review performed, negative except what is mentioned in the HPI. PAST MEDICAL HISTORY: Entails current smoker, hypercoagulable state, bilateral lower extremity atherosclerosis with disabling claudication, bilateral lower extremity venous insufficiency, recurring left lower extremity venous stasis ulcers, hypertension, dyslipidemia, COPD. PAST SURGICAL HISTORY: Venography of the bilateral lower extremities. SOCIAL HISTORY: Active smoker. Denies current alcohol or illicit drug use. FAMILY HISTORY: Positive for hypertension and coronary artery disease. PHYSICAL EXAMINATION: GENERAL: Alert and oriented x3, no apparent distress. HEENT: Normocephalic, atraumatic. PERRLA, EOMI. Mucosa moist. NECK: Supple. No carotid bruit. PULMONARY: Clear to auscultation bilaterally. No crackles. CARDIOVASCULAR: S1, S2 present. No murmurs. ABDOMEN: Soft, nontender, nondistended. Bowel sounds positive. EXTREMITIES: Lower extremities, -Right lower extremity palpable femoral pulse, faint pedal pulse. Motor and sensory intact, although he has a little bit of pain upon standing. Capillary refill 3 to 4 seconds. Dopplerable anterior tibial signal, edema 2+ Left lower extremity, palpable femoral pulse, faint pedal pulse. Motor and sensory intact. Capillary refill 3 to 4 seconds. No ulcers identified. ASSESSMENT AND PLAN: Bilateral lower extremity atherosclerosis with disabling claudication and right popliteal artery aneurysm: It seems the patient may have findings of atheroemboli related to his popliteal artery aneurysm. We will plan to obtain a lower extremity angiography and possible Viabahn stent grafting to exclude the aneurysm for him. For the patient findings of having no flow below the ankle, we suggested that the patient may have developed further occlusion of his tibial/pedal vessels secondary to the aneurysm, however unclear as he has motor/sensory intact but increased swelling, and not acute limb ischemia. We will plan to schedule the patient for an angiogram . Evaluation to be done by our hematologists Obtain bilateral lower extremity vein mapping to evaluate our possible conduit options. Optimize vascular status (BP meds, diet, nutrition, exercise, sugar control, antiplatelets). Discussed findings, plan and management with the patient and he understands. Discussed limb salvage and realistic outcomes of our current findings and the possibility of limb loss is there. Patient fully understands and would like to have everything done in order to provide adequate limb salvage for him. We will plan to obtain cardiology evaluation for possible surgical revascularization. Thank you for allowing us to partake in the care of your patient. Please call with any questions. Dictated By: MATT KNOWLES/FERNIE Conf#: [id number] DID#: [id number] CC: SEBAS LALA MD;*EndCC* MTDD
[2017-07-23] MEDS: ALBUTEROL 18 GM INHALER INH SCH ×4 (01:55→14:00)
[2017-07-23 02:07] VITALS: BP 99/55; RESP 20
--- NOTE | 2017-07-23 05:22 | RADRPT ---
PROCEDURE: US Lower extremity Veins. CLINICAL INDICATION: Rest pain TECHNIQUE: Multiple longitudinal and transverse images of the bilateral lower extremity venous tej e was obtained with gonzalez scale and color Doppler imaging. COMPARISON: Lower extremity venous ultrasound dated 06/08/2017 and lower extremity arterial ultras ound dated 06/23/2017 FINDINGS: LocationRight Groin GSVoccluded Upper thigh GSV occluded Mid thigh GSV occluded Lower thigh GSV occluded Knee GSV occluded Upper calf GSV occluded Mid calf GSV occluded Lower calf GSV occluded Ankle GSV2.3 mm LocationLeft Groin GSVoccluded Upper thigh GSV occluded Mid thigh GSV occluded Lower thigh GSV occluded Knee GSV occluded Upper calf GSV occluded Mid calf GSV occluded Lower calf GSV occluded Ankle GSVoccluded Again noted is thrombosis of the right common femoral vein. Again noted is aneurysmal dilatation of the right superficial femoral artery measuring 5.8 x 3.5 cm. IMPRESSION: 1. Complete occlusion of the left greater saphenous vein. There is occlusion of the right greater s aphenous vein to the level of the ankle. 2. Bilateral common femoral vein DVT. 3. 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 RPTAT:HH .Angelina Lynch MD, Date Time Electronically viewed and signed by .Angelina Lynch MD, on 07/23/2017 05:21 .G/
[2017-07-23 06:21] LABS: BASOPHILS % 0.3 % (0.0-2.0); EOSINOPHILS # 0.1 10^3/ul (0.0-0.5); EOSINOPHILS % 0.6 % (0.0-7.0); HEMATOCRIT 35.8 % (42.0-52.0); HEMOGLOBIN 11.2 g/dl (14.0-18.0); LYMPHOCYTES # 1.4 10^3/ul (0.8-2.9); LYMPHOCYTES % 9.8 % (15.0-51.0); MEAN CORPUSCULAR HEMOGLOBIN 26.6 pg (29.0-33.0); MEAN CORPUSCULAR HGB CONC 31.3 g/dl (32.0-37.0); MEAN PLATELET VOLUME 10.9 fl (7.4-10.4); MONOCYTE # 1.4 10^3/ul (0.3-0.9); MONOCYTES % 9.9 % (0.0-11.0); NEUTROPHIL # 11.2 10^3/ul (1.6-7.5); NEUTROPHILS % 78.8 % (39.0-77.0); PLATELET COUNT 127 10^3/UL (140-415); POSITIVE DIFF @See below; RED BLOOD COUNT 4.21 10^6/ul (4.70-6.10); RED CELL DISTRIBUTION WIDTH 14.1 % (11.5-14.5); WHITE BLOOD COUNT 14.2 10^3/ul (4.8-10.8)
[2017-07-23 06:57] LABS: CALCIUM 9.3 mg/dl (8.4-10.2); CREATININE 0.96 mg/dl (0.61-1.24); POTASSIUM 4.7 mmol/L (3.5-5.1)
[2017-07-23 07:00] LABS: CHOL/HDL RATIO 3.7 RATIO
[2017-07-23 07:46] VITALS: BP 118/73; RESP 18
[2017-07-23] MEDS: morphine 2 MG INJ IV PRN ×3 (08:23→19:32)
[2017-07-23] MEDS: SALMETEROL/FLUTICASONE 250/50 INHA INH SCH ×2 (08:28→21:07)
[2017-07-23] MEDS: DUTASTERIDE 0.5 MG CAP PO SCH (08:29)
[2017-07-23] MEDS: ATORVASTATIN 10 MG TAB PO SCH (08:30)
[2017-07-23] MEDS: FAMOTIDINE 20 MG INJ IV SCH ×2 (08:51→21:07)
[2017-07-23] MEDS ORDERED: INFLUENZA VIRUS VACCINE 0.5 ML (DISPENSING) IM* ONE (09:00)
--- NOTE | 2017-07-23 11:23 | CONS ---
DATE OF ADMISSION: 07/21/2017 DATE OF CONSULTATION: 07/23/2017 REASON FOR CONSULTATION: Preoperative evaluation. REQUESTING PHYSICIAN: Macho Drake MD HISTORY OF PRESENT ILLNESS: Mr. Abel is a 72-year-old male with a history of left lower extremi ty deep venous thrombosis, status post IVC filter placement, subsequent diagnosis of a right lower e xtremity DVT in June with a lower extremity venous ultrasound revealing a left common femoral D VT, recurrent on 06/08/2017. Status post vascular procedure 07/17/2017 with lower extremity venogra phy who presents now with burning pain down both of his legs. The patient has undergone abdominal a ngiography revealing an infrarenal abdominal aortic aneurysm, right popliteal artery aneurysm, left popliteal artery aneurysm, a head CT revealing no acute intracranial abnormality and a lower extremi ty venous ultrasound revealing aneurysm dilatation of the right superficial femoral artery, complete occlusion of the left greater saphenous vein. The patient's electrocardiogram revealed sinus tachy cardia, rate 130 with normal axis, normal intervals and nonspecific ST and T abnormalities. The pat ient has been admitted to the floor and since admitted to the floor, denies chest pain, shortness of breath. The patient does state that he has had a prior myocardial infarction 18 years prior that d id not even require a stent but did have angiography. PAST MEDICAL HISTORY: As above in HPI. MEDICATIONS CURRENTLY IN HOSPITAL: 1. Neurontin 300 mg at bedtime. 2. Albuterol. 3. Avodart 0.5 mg daily. 4. Advair. 5. Lipitor 10 mg at bedtime. 6. Pepcid 20 mg IV b.i.d. 7. Ambien. 8. Tylenol. 9. Zofran. 10. [place]. 11. Morphine p.r.n. ALLERGIES: PENICILLIN. SOCIAL HISTORY: No tobacco, ETOH or illicit drug use. FAMILY HISTORY: No history of sudden cardiac or early CAD. REVIEW OF SYSTEMS: As above in HPI. CONSTITUTIONAL: No fevers, chills. PULMONARY: No current shortness of breath. CARDIOVASCULAR: No current chest pain. GASTROINTESTINAL: No vomiting. GENITOURINARY: No hematuria. MUSCULOSKELETAL: Degenerative joint disease. PSYCHIATRIC: Patient denies depression. NEUROLOGIC: No documented history of CVA. ENDOCRINE: No documented history of diabetes mellitus. PHYSICAL EXAMINATION: VITAL SIGNS: Temperature 97.6, blood pressure 118/73, pulse 109, respirations 18, saturating 94%. GENERAL: The patient is alert, awake, complaining of right lower extremity leg pain. NECK: JVP approximately 9 cm water. CHEST: Fair movement throughout. HEART: Regular rate and rhythm. Normal S1, S2, I/ systolic murmur, nondisplaced PMI. ABDOMEN: Positive bowel sounds, soft. EXTREMITIES: Right lower extremity edema. Palpable pulses bilaterally dorsalis pedis, posterior ti anna. LABORATORY DATA: Most recently from today, sodium 138, potassium 4.7, creatinine 0.96, BUN 27. Whi te blood cell count 14.2, hemoglobin 11.2, platelet count 127. INR of 3.03. IMAGING STUDIES: As above in HPI. No further imaging studies for my review at this time. ECG: As above in HPI. No further electrocardiograms for my review at this time. IMPRESSION: 1. Preoperative evaluation prior to possible surgical vascular intervention. 2. Hypertension. 3. Dyslipidemia. 4. Abnormal electrocardiogram with nonspecific ST and T-wave abnormalities. 5. Left lower extremity deep venous thrombosis status post inferior vena cava filter, on Coumadin. 6. Chronic obstructive pulmonary disease. 7. 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 RECOMMENDATIONS: 1. At this time, would check serial EKGs to assess for any significant ongoing changes. EKG in the morning, EKG for any complaints of chest pain or change in rhythm. 2. Complete the patient's rule out for myocardial infarction to ensure the patient's EKG abnormalit ies are chronic in nature and not due to any recent acute coronary syndromes. 3. Continue the patient's current statin therapy and Coumadin being held following INR closely at t his time. 4. Check a 2D echocardiogram to further assess patient's ejection fraction, wall motion and any [place] or valve abnormalities. 5. Patient has pending endovascular procedure initially first with a possible surgical vascular pro cedure thereafter with recommendations pertaining to the patient's cervical cancer made after comple tion of above studies. Thank you for allowing me to take part in the care of this patient. I will continue to follow along very closely with you. Further recommendations will be made as the patient progresses through his inpatient hospital clinical course. Dictated By: AIMEE BARNETT/FERNIE Conf#: [id number] [facility]#: [id number]
[2017-07-23] MEDS ORDERED: HEPARIN 25000 UNITS/250 ML 250 ML IV SCH (12:30)
[2017-07-23] MEDS ORDERED: HEPARIN 5,000 UNIT/0.5 ML VIAL IV ONE (12:30)
[2017-07-23] MEDS ORDERED: HEPARIN 1000 UNITS/ML 10 ML INJ IV PRN (13:00)
--- NOTE | 2017-07-23 13:06 | PN ---
Date/Time of Note Date/Time of Note DATE: 07/23/17 TIME: 13:04 Assessment/Plan VTE Prophylaxis VTE Prophylaxis Intervention: SCD's Lines/Catheters IV Catheter Type (from Nrs): Saline Lock Assessment/Plan Chief Complaint/Hosp Course Patient's complaints of testicular pain, Dr. Davis is asked to see patient in neurology consultation. Assessment/Plan Right lower extremity pain, continue [place] and morphine as needed for pain. 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 Mendiola is following in vascular surgery consultation. Continue Coumadin. Dr. Short is asked to see patient in cardiology consultation Left leg DVT COPD Dyslipidemia Further recommendations based on clinical course. Plan of care discussed with Dr. Drake Problems: Exam/Review of Systems Vital Signs Vitals Vital Signs Date Time Temp Pulse Resp B/P Pulse Ox O2 Delivery O2 Flow Rate FiO2 07/23/17 07:46 97.6 109 18 118/73 94 07/22/17 00:30 Room Air Intake and Output 07/22/17 07/22/17 07/23/17 15:00 23:00 07:00 Output Total 200 ml Balance -200 ml Exam Constitutional: alert, oriented Neck: supple Respiratory: normal air movement Cardiovascular: nl pulses Gastrointestinal: non-tender, soft Musculoskeletal: nl extremities to inspection Extremities: normal pulses Results Result Diagram: 07/23/17 0548 07/23/17 0548 Results 24 hrs Laboratory Tests Test 07/23/17 00:14 07/23/17 05:48 Prothrombin Time 31.8 H Prothrombin Time Ratio 2.5 INR International Normalized Ratio 3.03 Activated Partial Thromboplast Time 62.3 H Fibrinogen 243.0 White Blood Count 14.2 H Red Blood Count 4.21 L Hemoglobin 11.2 L Hematocrit 35.8 L Mean Corpuscular Volume 85.0 Mean Corpuscular Hemoglobin 26.6 L Mean Corpuscular Hemoglobin Concent 31.3 L Red Cell Distribution Width 14.1 Platelet Count 127 L Mean Platelet Volume 10.9 H Neutrophils % 78.8 H Lymphocytes % 9.8 L Monocytes % 9.9 Eosinophils % 0.6 Basophils % 0.3 Nucleated Red Blood Cells % 0.0 Neutrophils # 11.2 H Lymphocytes # 1.4 Monocytes # 1.4 H Eosinophils # 0.1 Basophils # 0.0 Nucleated Red Blood Cells # 0.0 Sodium Level 138 Potassium Level 4.7 Chloride Level 100 Carbon Dioxide Level 26 Anion Gap 17 H Blood Urea Nitrogen 27 H Creatinine 0.96 Glucose Level 106 Calcium Level 9.3 Triglycerides Level 111 Cholesterol Level 181 LDL Cholesterol, Calculated 111 HDL Cholesterol 48 Cholesterol/HDL Ratio 3.7 Medications Medications Current Medications Dutasteride (Avodart) 0.5 mg DAILY PO Last administered on 07/22/17 08:58; Admin Dose 0.5 MG; Start 07/22/17 at 09:00 Gabapentin (Neurontin) 300 mg QHS PO Last administered on 07/22/17 21:19; Admin Dose 300 MG; Start 07/22/17 at 21:00 Warfarin Sodium (Coumadin) 7.5 mg DAILY@17 PO Last administered on 07/22/17 17:44; Admin Dose 7.5 MG; Start 07/22/17 at 17:00; Status Future Hold Salmeterol Xinafoate/ Fluticasone (Advair 250/50 Diskus) 1 inh BID INH Last administered on 07/23/17 08:28; Admin Dose 1 INH; Start 07/22/17 at 09:00 Atorvastatin Calcium (Lipitor) 10 mg QAM PO Last administered on 07/22/17 08: 58; Admin Dose 10 MG; Start 07/22/17 at 09:00 Acetaminophen (Tylenol Tab) 650 mg QID PRN PO PAIN LEVEL 1-5; Start 07/21/17 at 23:30 Ondansetron HCl (Zofran Inj) 4 mg Q6H PRN IV NAUSEA AND/OR VOMITING Last administered on 07/22/17 11:48; Admin Dose 4 MG; Start 07/21/17 at 23:30 Acetaminophen/ Hydrocodone Bitart ([place] (5/325)) 1 tab Q4H PRN PO PAIN LEVEL 4 -7 Last administered on 07/22/17 21:19; Admin Dose 1 TAB; Start 07/21/17 at 23:30 Morphine Sulfate (morphine) 2 mg Q4H PRN IV MODERATE PAIN LEVEL 4-6 Last administered on 07/23/17 11:33; Admin Dose 2 MG; Start 07/21/17 at 23:30 Famotidine (Pepcid Iv) 20 mg BID IV Last administered on 07/23/17 08:51; Admin Dose 20 MG; Start 07/22/17 at 09:00 Heparin Sodium (Porcine) (Heparin (1000 Units/ml)) PRN PRN IV PENDING LAB VALUE; Start 07/23/17 at 13:00 LISETTE MEDINA Jul 23, 2017 13:06
[2017-07-23 14:13] VITALS: BP 107/69; RESP 18
--- NOTE | 2017-07-23 14:41 | CONS ---
DATE OF ADMISSION: 07/21/2017 DATE OF CONSULTATION: 07/23/2017 REQUESTING PHYSICIAN: Dr. Drake and Dr. Mendiola. REASON FOR CONSULTATION: Testicular pain. HISTORY OF PRESENT ILLNESS: This is a 72-year-old male who has vascular problems. The patient has a history of left lower extremity deep vein thrombosis status post inferior vena cava filter placeme nt in 2007. Patient has been on Coumadin with therapeutic INR. The patient was undergoing evaluati on of the right lower extremity pain and underwent an angiogram on 07/15/2017 and the patient develo ped right lower extremity pain, especially with ambulation. The patient underwent an abdominal saima ogram, which revealed bilateral popliteal artery aneurysm and with the right popliteal artery aneury sm measuring 3.5 cm in transverse diameter. The patient is going for aortoiliac angiogram and right lower extremity angiogram and possible stenting and angioplasty and possible lysis and thrombectomy . A urological consultation was requested because the patient has been having bilateral testicular pain. The patient has been followed by his own urologist in [place], Dr. eNo Gao and he has been seeing him regularly. He used to have elevated PSA and has been placed on Avodart. He did undergo 2 prior prostate biopsies and these did not show any cancer. He does have nocturia about 2 to 3 times and during the day he voids every 2 to 3 hours. He denies any dysuria. His urinary str eam is good except in the morning it is somehow slow. There is no history of gross hematuria and th e patient taking only Avodart. PAST MEDICAL HISTORY: He has had COPD, dyslipidemia and the left leg deep vein thrombosis. PAST SURGICAL HISTORY: Again, IVC placement of a filter in 2007 and on angiogram about a couple of weeks earlier. SOCIAL HISTORY: The patient does not drink alcohol. He is a former smoker and he does use marijuan a sometimes. REVIEW OF SYSTEMS: Otherwise is negative. He has many vascular problems. MEDICATIONS: Include: 1. Avodart. 2. Neurontin. 3. Coumadin. 4. Salmeterol. 5. Futicasone. ALLERGIES: 1. ADVAIR. 2. ATORVASTATIN. 3. TYLENOL. 4. ZOFRAN. 5. NORCO. 6. MORPHINE SULFATE. 7. PEPCID. PHYSICAL EXAMINATION: GENERAL: Reveals a 72-year-old male. He is afebrile. VITAL SIGNS: Temperature today is 97.6. He had 100.3 yesterday. Pulse is 109, respiration is 18, blood pressure 118/73. ABDOMEN: Soft. There is no abdominal mass palpable. EXTERNAL GENITALIA: Penis is normal. Both testes are normal. He does have a left epididymal cyst and palpating the scrotum and testes are not painful. The pain that he is feeling in the scrotal ar ea is a referred pain, most likely related to nerve irritation. RECTAL: Revealed prostate to be soft and mildly enlarged. EXTREMITIES: Lower extremities: There is no edema at the present. LABORATORY DATA: CBC shows a white count of 14.2, hemoglobin 11.2, hematocrit 35.8. BUN is 27, cre atinine 0.96. Electrolytes are normal. The PT is 31.8, INR is 3.03, PTT 62.3. IMPRESSION: Testicular pain that is not caused by any pathology in the testicles themselves but rat her is most likely referred pain, same pain that could cause him pain in his lower extremity is caus ing probably pain in his testicle as well. This most likely is nerve irritation. The patient does have a left epididymal cyst which also is not causing any problem. He does have a history of elevat ed PSA and has been on Avodart and under the care of Dr. Neo Gao. RECOMMENDATION: At the present, I just will send urine for UA, culture and sensitivity and to make sure that there is no infection in his urine. Otherwise, we will continue with Avodart and will ob serve as far as the testicular pain. Dictated By: STACIA GLORIA/FERNIE Conf#: [id number] DID#: [id number]
[2017-07-23] MEDS ORDERED: SOD CHLORIDE 0.9% 1,000 ML IV ONE (15:00)
[2017-07-23] MEDS ORDERED: FENTAnyl 50 MCG/ML VIAL ONE ×4 (15:31→17:52)
[2017-07-23] MEDS ORDERED: MIDAZOLAM 1 MG/ML 2 ML INJ ONE ×2 (15:31→15:55)
[2017-07-23] MEDS ORDERED: ALTEPLASE 10 MG in NS 100 ML CATHETER ONE ×2 (15:45→18:00)
[2017-07-23] MEDS ORDERED: IODIXANOL LOCM 100 ML BTL ONE (15:55)
[2017-07-23] MEDS ORDERED: HEPARIN 1000 UNITS/NS (A-LINE) 1,000 ML ONE (15:55)
--- NOTE | 2017-07-23 17:08 | CONS ---
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 Given that his prognosis is not only venous biopsy that he also has evidence of thrombus in the right and left popliteal arteries, or gross anticoagulation must include anticoagulation for both the arteries and veins. Thus my recommendations are as follows -Okay to start heparin drip in anticipation of angiogram to be done by vascular surgery and. -Once patient has completed his procedures, would recommend to start on [id number] mg p.o. b.i.d. and then switched to 5 mg b.i.d. thereafter. - patient will need lifelong anticoagulation -Would recommend to start Plavix 75 mg q. day to prevent and treat the arterial thrombosis -We'll perform a hypercoagulable workup at this time including factor V Leiden mutation, prothrombin gene mutation, antithrombin III mutation, and workup for antiphospholipid antibodies. We will check a protein C&S deficiency as an outpatient since this patient recently was on Coumadin and results of these tests would currently be unreliable Problems: Consultation Date/Type/Reason Admit Date/Time Jul 21, 2017 at 23:03 Date of Consultation: Jul 23, 2017 Type of Consultation: Hematology Reason for Consultation Bilateral lower extremity DVT while on Coumadin Referring Provider: MATT MCCULLOUGH MD Hx of Present Illness Mr. Abel is a pleasant 72-year-old male who's history begins 18 years ago when he was diagnosed with a left lower extremity DVT. Patient states he has been on and off Coumadin for 18 years her repeated blood clots in the left lower extremity. In 2007 he had an IVC filter placed at [facility] given the recurrent DVT again found in that left lower extremity. He is now aware of ever developing a DVT while on Coumadin but states he has more been on Coumadin than Coumadin in the last 18 years. In early 06/2007 patient felt pain radiating his left lower extremity and felt that his thigh was on fire. Patient was seen at the [facility] ER. On lower extremity ultrasound revealed DVT in the left common femoral vein. Additional thrombus was also seen in the left greater saphenous vein. . Patient was discharged to follow up with vascular surgery. Patient had angiogram done one week ago by vascular surgery and states after the procedure patient was unable to walk since his readmission to [facility]. 07/22/17 ultrasound the lower extremities was done which revealed complete occlusion of the left greater saphenous vein as well as a right greater saphenous vein to the level of the ankle. 07/21/17 : CT Angio of A/P with Lower Extremity runoff: Right popliteal aneurysm measuring 2.5 cm luminal thrombus resulting in high-grade stenosis. Also seen is left popliteal artery aneurysm measuring 1.5 cm also with luminal thrombus Given patient's evidence of DVT while on Coumadin for many years, we have been contacted for further workup Constitutional: no complaints, other (weight loss), poor po Eyes: no complaints ENT: no complaints Respiratory: no complaints Gastrointestinal: constipation, decreased appetite Genitourinary: no complaints Musculoskeletal: back pain, bone/joint pain, swelling Past Medical History current smoker bilateral lower extremity atherosclerosis with disabling claudication bilateral lower extremity venous insufficienc recurring left lower extremity venous stasis ulcers hypertension dyslipidemia COPD. Past Surgical History Venography of the bilateral lower extremities Family History Significant Family History: no pertinent family hx Social History Alcohol Use: none Smoking Status: Former smoker Drug Use: marijuana Exam/Review of Systems Vital Signs Vitals Vital Signs Date Time Temp Pulse Resp B/P Pulse Ox O2 Delivery O2 Flow Rate FiO2 07/23/17 14:13 98.2 116 18 107/69 93 07/22/17 00:30 Room Air Intake and Output 07/22/17 07/22/17 07/23/17 15:00 23:00 07:00 Output Total 200 ml Balance -200 ml Exam Constitutional: alert, oriented Psych: anxiety, no complaints Head: normocephalic Eyes: nl conjunctiva ENMT: nl external ears & nose Neck: non-tender, supple Respiratory: clear to auscultation Cardiovascular: regular rate and rhythm Gastrointestinal: soft Extremities: normal pulses, other (pulses felt in BLE, venous stasis changes noted. no ulcers) Results Result Diagram: 07/23/1748 07/23/1748 Results 24 hrs Laboratory Tests Test 07/23/17 00:14 07/23/17 05:48 07/23/17 12:36 Prothrombin Time 31.8 H Prothrombin Time Ratio 2.5 INR International Normalized Ratio 3.03 Activated Partial Thromboplast Time 62.3 H Fibrinogen 243.0 White Blood Count 14.2 H Red Blood Count 4.21 L Hemoglobin 11.2 L Hematocrit 35.8 L Mean Corpuscular Volume 85.0 Mean Corpuscular Hemoglobin 26.6 L Mean Corpuscular Hemoglobin Concent 31.3 L Red Cell Distribution Width 14.1 Platelet Count 127 L Mean Platelet Volume 10.9 H Neutrophils % 78.8 H Lymphocytes % 9.8 L Monocytes % 9.9 Eosinophils % 0.6 Basophils % 0.3 Nucleated Red Blood Cells % 0.0 Neutrophils # 11.2 H Lymphocytes # 1.4 Monocytes # 1.4 H Eosinophils # 0.1 Basophils # 0.0 Nucleated Red Blood Cells # 0.0 Sodium Level 138 Potassium Level 4.7 Chloride Level 100 Carbon Dioxide Level 26 Anion Gap 17 H Blood Urea Nitrogen 27 H Creatinine 0.96 Glucose Level 106 Calcium Level 9.3 Triglycerides Level 111 Cholesterol Level 181 LDL Cholesterol, Calculated 111 HDL Cholesterol 48 Cholesterol/HDL Ratio 3.7 Troponin I < 0.012 Medications Medications Current Medications Dutasteride (Avodart) 0.5 mg DAILY PO Last administered on 07/22/17 08:58; Admin Dose 0.5 MG; Start 07/22/17 at 09:00 Gabapentin (Neurontin) 300 mg QHS PO Last administered on 07/22/17 21:19; Admin Dose 300 MG; Start 07/22/17 at 21:00 Warfarin Sodium (Coumadin) 7.5 mg DAILY@17 PO Last administered on 07/22/17 17:44; Admin Dose 7.5 MG; Start 07/22/17 at 17:00; Status Future Hold Salmeterol Xinafoate/ Fluticasone (Advair 250/50 Diskus) 1 inh BID INH Last administered on 07/23/17 08:28; Admin Dose 1 INH; Start 07/22/17 at 09:00 Atorvastatin Calcium (Lipitor) 10 mg QAM PO Last administered on 07/22/17 08: 58; Admin Dose 10 MG; Start 07/22/17 at 09:00 Acetaminophen (Tylenol Tab) 650 mg QID PRN PO PAIN LEVEL 1-5; Start 07/21/17 at 23:30 Ondansetron HCl (Zofran Inj) 4 mg Q6H PRN IV NAUSEA AND/OR VOMITING Last administered on 07/22/17 11:48; Admin Dose 4 MG; Start 07/21/17 at 23:30 Acetaminophen/ Hydrocodone Bitart ([place] (5/325)) 1 tab Q4H PRN PO PAIN LEVEL 4 -7 Last administered on 07/22/17 21:19; Admin Dose 1 TAB; Start 07/21/17 at 23:30 Morphine Sulfate (morphine) 2 mg Q4H PRN IV MODERATE PAIN LEVEL 4-6 Last administered on 07/23/17 11:33; Admin Dose 2 MG; Start 07/21/17 at 23:30 Famotidine (Pepcid Iv) 20 mg BID IV Last administered on 07/23/17 08:51; Admin Dose 20 MG; Start 07/22/17 at 09:00 Heparin Sodium (Porcine) (Heparin (1000 Units/ml)) PRN PRN IV PENDING LAB VALUE; Start 07/23/17 at 13:00 AMARA MCINTYRE M.D. Jul 23, 2017 16:59
[2017-07-23] MEDS ORDERED: ALTEPLASE (CATHFLO) 2 MG INJ IV ONE (17:30)
--- NOTE | 2017-07-23 18:42 | HPN ---
Date/Time of Note Date/Time of Note DATE: 07/23/17 TIME: 18:40 Interval H&P Admission Note Pt. seen H&P reviewed: Systems changes noted below Upon evaluation of his venous study it was identified the patient having developed bilateral common femoral acute DVT's i addition to his Right femoral/ popliteal artery aneurysm. Will plan to perform Angiogram and venogram with possible interventions MATT MCCULLOUGH MD Jul 23, 2017 18:42
--- NOTE | 2017-07-23 18:46 | SIPON ---
Date/Time of Note Date/Time of Note DATE: 07/23/17 TIME: 18:42 Operative Report Preoperative Diagnosis RIGHT FEMORAL/POPLITEAL ARTERY ANEURYSM BILATERAL LOWER EXTREMITY ACUTE DVT's Postoperative Diagnosis SAME ABD IVC THROMBOSIS Operation/Procedure Performed AORTOILIAC ANGIOGRAM AND RLE ANGIOGRAM FEMORAL-POPLITEAL ARTERY STENT GRAFT PLACEMENT WITH VIABAHN [id number],[id number] BILATERAL LOWER EXTREMITY VENOGRAMS BILATERAL COMMON ILIAC, EXTERNAL ILIAC, COMMON FEMORAL VEIN THROMBECTOMY IVC THROMBECTOMY LYSIS CATHETER PLACEMENT INTRAVASCULAR U/S OF BILATERAL CIV, EIV, CFV AND IVC Surgeon see signature line registered dental assistant NONE Anesthesia: moderate sedation Estimated blood loss: 250 - 300 ml's Transfusion Required ONE UNIT PRBC Specimen NONE Grafts/Implants none Complications none MATT MCCULLOUGH MD Jul 23, 2017 18:46
[2017-07-23 20:00] VITALS: BP 105/77; PULSE 117; PULSE 123; RESP 23
[2017-07-23 20:12] LABS: BASOPHILS % 0.2 % (0.0-2.0); EOSINOPHILS % 0.1 % (0.0-7.0); HEMATOCRIT 33.4 % (42.0-52.0); HEMOGLOBIN 10.8 g/dl (14.0-18.0); LYMPHOCYTES # 0.8 10^3/ul (0.8-2.9); LYMPHOCYTES % 5.2 % (15.0-51.0); MEAN CORPUSCULAR HEMOGLOBIN 28.1 pg (29.0-33.0); MEAN CORPUSCULAR HGB CONC 32.3 g/dl (32.0-37.0); MEAN CORPUSCULAR VOLUME 86.8 fl (82.0-101.0); MEAN PLATELET VOLUME 9.9 fl (7.4-10.4); MONOCYTE # 1.2 10^3/ul (0.3-0.9); MONOCYTES % 7.8 % (0.0-11.0); NEUTROPHIL # 13.3 10^3/ul (1.6-7.5); NEUTROPHILS % 85.7 % (39.0-77.0); PLATELET COUNT 139 10^3/UL (140-415); POSITIVE DIFF @See below; RED BLOOD COUNT 3.85 10^6/ul (4.70-6.10); RED CELL DISTRIBUTION WIDTH 14.2 % (11.5-14.5); WHITE BLOOD COUNT 15.6 10^3/ul (4.8-10.8)
[2017-07-23 20:51] LABS: CALCIUM 8.6 mg/dl (8.4-10.2); CREATININE 0.88 mg/dl (0.61-1.24); POTASSIUM 4.7 mmol/L (3.5-5.1)
[2017-07-23] MEDS: GABAPENTIN 300 MG CAP PO SCH (21:07)
[2017-07-23] MEDS: ZOLPIDEM 5 MG TAB PO PRN (21:07)
[2017-07-23 22:00] VITALS: BP 107/69; PULSE 118; RESP 23
[2017-07-23 22:02] LABS: INR 3.63; PROTIME 36.7 Sec (12.2-14.2); PT RATIO 2.9
[2017-07-23 23:00] VITALS: BP 103/73; PULSE 114; RESP 22
[2017-07-24] VITALS (58 sets, daily range): BP systolic 89–135; BP diastolic 46–108; PULSE 96–154; RESP 14–43
[2017-07-24] MEDS: morphine 2 MG INJ IV PRN ×2 (01:47→14:59)
[2017-07-24 02:29] LABS: BASOPHILS % 0.3 % (0.0-2.0); EOSINOPHILS % 0.2 % (0.0-7.0); LYMPHOCYTES # 1.2 10^3/ul (0.8-2.9); LYMPHOCYTES % 10.2 % (15.0-51.0); MEAN CORPUSCULAR HEMOGLOBIN 27.4 pg (29.0-33.0); MEAN CORPUSCULAR HGB CONC 32.3 g/dl (32.0-37.0); MEAN CORPUSCULAR VOLUME 84.9 fl (82.0-101.0); MEAN PLATELET VOLUME 10.3 fl (7.4-10.4); MONOCYTES % 8.2 % (0.0-11.0); NEUTROPHIL # 9.7 10^3/ul (1.6-7.5); NEUTROPHILS % 80.3 % (39.0-77.0); PLATELET COUNT 155 10^3/UL (140-415); RED BLOOD COUNT 3.65 10^6/ul (4.70-6.10); RED CELL DISTRIBUTION WIDTH 14.2 % (11.5-14.5); WHITE BLOOD COUNT 12.1 10^3/ul (4.8-10.8)
[2017-07-24 03:01] LABS: CHOL/HDL RATIO 3.7 RATIO
[2017-07-24 03:02] LABS: CALCIUM 8.7 mg/dl (8.4-10.2); CREATININE 0.76 mg/dl (0.61-1.24); POTASSIUM 4.4 mmol/L (3.5-5.1)
[2017-07-24 03:07] LABS: INR 3.36; PROTIME 34.5 Sec (12.2-14.2); PT RATIO 2.7
[2017-07-24] MEDS: HYDROmorphONE 1 MG/ML SYG IV PRN ×4 (04:30→23:29)
[2017-07-24] MEDS ORDERED: GELATIN SIZE 100 SPONGE ONE (06:25)
[2017-07-24] MEDS ORDERED: LIDOCAINE 1% (MPF) 30 ML INJ ONE (06:25)
[2017-07-24] MEDS ORDERED: HEPARIN 1000 UNITS/ML 10 ML INJ ONE (06:26)
[2017-07-24] MEDS ORDERED: THROMBIN 5000 UNIT VIAL ONE (06:26)
[2017-07-24] MEDS ORDERED: ALTEPLASE 10 MG in SOD CHLORIDE 0.9% 100 ML CATHETER ONE (06:30)
[2017-07-24] MEDS ORDERED: LIDOCAINE 1% (MDV) 20 ML INJ ONE (06:35)
[2017-07-24] MEDS ORDERED: IODIXANOL LOCM 100 ML BTL ONE (06:35)
[2017-07-24] MEDS ORDERED: FENTAnyl 50 MCG/ML VIAL ONE (06:36)
[2017-07-24] MEDS ORDERED: MIDAZOLAM 1 MG/ML 2 ML INJ ONE (06:36)
[2017-07-24] MEDS ORDERED: LACTATED RINGER'S 500 ML, HEPARIN 1,000 UNIT, PAPAVERINE 120 MG IV SCH ×4 (07:30)
--- NOTE | 2017-07-24 07:35 | HPN ---
Date/Time of Note Date/Time of Note DATE: 07/24/17 TIME: 07:35 Interval H&P Admission Note Pt. seen H&P reviewed: No system changes MATT MCCULLOUGH MD Jul 24, 2017 07:35
[2017-07-24] MEDS: ATORVASTATIN 10 MG TAB PO SCH (08:09)
[2017-07-24] MEDS: DUTASTERIDE 0.5 MG CAP PO SCH (08:10)
[2017-07-24] MEDS: HYDROCODONE/APAP (5/325) TAB PO PRN ×2 (08:10→12:57)
[2017-07-24] MEDS: FAMOTIDINE 20 MG INJ IV SCH ×2 (08:10→21:19)
[2017-07-24] MEDS: SALMETEROL/FLUTICASONE 250/50 INHA INH SCH ×2 (08:10→21:20)
--- NOTE | 2017-07-24 08:33 | PN ---
Date/Time of Note Date/Time of Note DATE: 07/24/17 TIME: 08:29 Assessment/Plan VTE Prophylaxis VTE Prophylaxis Intervention: heparin Lines/Catheters IV Catheter Type (from [facility]): LYSIS CATHETER Urinary Cath still in place: Yes Reason Cath still needed: other (indicate) (Monitor urine output) Assessment/Plan Chief Complaint/Hosp Course Patient was complaining of testicular pain prior to the surgery He underwent: AORTOILIAC ANGIOGRAM AND RLE ANGIOGRAM FEMORAL-POPLITEAL ARTERY STENT GRAFT PLACEMENT WITH VIABAHN [id number] BILATERAL LOWER EXTREMITY VENOGRAMS BILATERAL COMMON ILIAC, EXTERNAL ILIAC, COMMON FEMORAL VEIN THROMBECTOMY IVC THROMBECTOMY LYSIS CATHETER PLACEMENT INTRAVASCULAR U/S OF BILATERAL CIV, EIV, CFV AND IVC He denies having any testicular pain today, has a Galvan catheter that is draining clear urine Urologically just observe him Problems: Subjective 24 Hr Interval Summary Constitutional: no complaints Eyes: no complaints ENT: no complaints Respiratory: no complaints Genitourinary: other (No testicular pain today) Exam/Review of Systems Vital Signs Vitals Vital Signs Date Time Temp Pulse Resp B/P Pulse Ox O2 Delivery O2 Flow Rate FiO2 07/24/17 06:00 101 18 108/75 91 07/24/17 04:00 98.2 07/22/17 00:30 Room Air Intake and Output 07/23/17 07/23/17 07/24/17 15:00 23:00 07:00 Intake Total 404 ml 90 ml Output Total 380 ml 350 ml Balance 24 ml -260 ml Exam Constitutional: alert Psych: no complaints Respiratory: normal air movement Gastrointestinal: soft Genitourinary - Male: nl penis, nl scrotum Results Result Diagram: 07/24/172 07/24/17 0222 Results 24 hrs Laboratory Tests Test 07/23/17 12:36 07/23/17 19:55 07/24/17 02:22 07/24/17 05:49 Troponin I < 0.012 0.019 White Blood Count 15.6 H 12.1 #H Red Blood Count 3.85 L 3.65 L Hemoglobin 10.8 L 10.0 L Hematocrit 33.4 L 31.0 L Mean Corpuscular Volume 86.8 84.9 Mean Corpuscular Hemoglobin 28.1 L 27.4 L Mean Corpuscular Hemoglobin Concent 32.3 32.3 Red Cell Distribution Width 14.2 14.2 Platelet Count 139 L 155 Mean Platelet Volume 9.9 10.3 Neutrophils % 85.7 H 80.3 H Lymphocytes % 5.2 L 10.2 L Monocytes % 7.8 8.2 Eosinophils % 0.1 0.2 Basophils % 0.2 0.3 Nucleated Red Blood Cells % 0.0 0.0 Neutrophils # 13.3 H 9.7 H Lymphocytes # 0.8 1.2 Monocytes # 1.2 H 1.0 H Eosinophils # 0.0 0.0 Basophils # 0.0 0.0 Nucleated Red Blood Cells # 0.0 0.0 Prothrombin Time 36.7 H 34.5 H Prothrombin Time Ratio 2.9 2.7 INR International Normalized Ratio 3.63 3.36 Activated Partial Thromboplast Time > 180.0 *H 95.7 *H Fibrinogen 298.0 # 292.0 Sodium Level 139 137 Potassium Level 4.7 4.4 Chloride Level 105 105 Carbon Dioxide Level 25 26 Anion Gap 14 10 Blood Urea Nitrogen 25 H 22 H Creatinine 0.88 0.76 Glucose Level 114 102 Calcium Level 8.6 8.7 Magnesium Level 1.9 2.0 Triglycerides Level 96 Cholesterol Level 153 LDL Cholesterol, Calculated 93 HDL Cholesterol 41 Cholesterol/HDL Ratio 3.7 Lab Scanned Report BLOOD TRANSFUSION Test 07/24/17 07:49 White Blood Count Pending Red Blood Count Pending Hemoglobin Pending Hematocrit Pending Mean Corpuscular Volume Pending Mean Corpuscular Hemoglobin Pending Mean Corpuscular Hemoglobin Concent Pending Red Cell Distribution Width Pending Platelet Count Pending Mean Platelet Volume Pending Medications Medications Current Medications Dutasteride (Avodart) 0.5 mg DAILY PO Last administered on 07/24/17 08:10; Admin Dose 0.5 MG; Start 07/22/17 at 09:00 Gabapentin (Neurontin) 300 mg QHS PO Last administered on 07/23/17 21:07; Admin Dose 300 MG; Start 07/22/17 at 21:00 Warfarin Sodium (Coumadin) 7.5 mg DAILY@17 PO Last administered on 07/22/17 17:44; Admin Dose 7.5 MG; Start 07/22/17 at 17:00; Status Future Hold Salmeterol Xinafoate/ Fluticasone (Advair 250/50 Diskus) 1 inh BID INH Last administered on 07/24/17 08:10; Admin Dose 1 INH; Start 07/22/17 at 09:00 Atorvastatin Calcium (Lipitor) 10 mg QAM PO Last administered on 07/24/17 08: 09; Admin Dose 10 MG; Start 07/22/17 at 09:00 Acetaminophen (Tylenol Tab) 650 mg QID PRN PO PAIN LEVEL 1-5; Start 07/21/17 at 23:30 Ondansetron HCl (Zofran Inj) 4 mg Q6H PRN IV NAUSEA AND/OR VOMITING Last administered on 07/22/17 11:48; Admin Dose 4 MG; Start 07/21/17 at 23:30 Acetaminophen/ Hydrocodone Bitart ([place] (5/325)) 1 tab Q4H PRN PO PAIN LEVEL 4 -7 Last administered on 07/24/17 08:10; Admin Dose 1 TAB; Start 07/21/17 at 23:30 Morphine Sulfate (morphine) 2 mg Q4H PRN IV MODERATE PAIN LEVEL 4-6 Last administered on 07/24/17 01:47; Admin Dose 2 MG; Start 07/21/17 at 23:30 Famotidine (Pepcid Iv) 20 mg BID IV Last administered on 07/24/17 08:10; Admin Dose 20 MG; Start 07/22/17 at 09:00 Heparin Sodium (Porcine) (Heparin (1000 Units/ml)) PRN PRN IV PENDING LAB VALUE; Start 07/23/17 at 13:00 Hydromorphone HCl 1 mg 1 mg Q3H PRN IV PAIN Last administered on 07/24/17 04: 30; Admin Dose 1 MG; Start 07/23/17 at 22:00 Alteplase, Recombinant/ Sodium Chloride 100 ml @ 5 mls/hr ONCE ONCE CATHETER ; Start 07/24/17 at 06:30; Stop 07/25/17 at 02:29 Lactated Ringer's/ Heparin Sodium (Porcine)/ Papaverine HCl/N/A (Lr/Heparin ( 1000 Units/ml)/ Papaverine/Evac Container) INTRA-OP IV ; Start 07/24/17 at 07: 30 STACIA INGRAM MD Jul 24, 2017 08:33
[2017-07-24 08:38] LABS: BASOPHILS % 0.4 % (0.0-2.0); CALCIUM 9.2 mg/dl (8.4-10.2); CREATININE 0.82 mg/dl (0.61-1.24); EOSINOPHILS % 0.4 % (0.0-7.0); HEMATOCRIT 36.9 % (42.0-52.0); HEMOGLOBIN 11.4 g/dl (14.0-18.0); LYMPHOCYTES # 1.2 10^3/ul (0.8-2.9); LYMPHOCYTES % 10.6 % (15.0-51.0); MAGNESIUM 2.1 mg/dl (1.7-2.5); MEAN CORPUSCULAR HEMOGLOBIN 26.8 pg (29.0-33.0); MEAN CORPUSCULAR HGB CONC 30.9 g/dl (32.0-37.0); MEAN CORPUSCULAR VOLUME 86.6 fl (82.0-101.0); MEAN PLATELET VOLUME 10.3 fl (7.4-10.4); MONOCYTE # 0.9 10^3/ul (0.3-0.9); MONOCYTES % 8.2 % (0.0-11.0); NEUTROPHILS % 79.9 % (39.0-77.0); PLATELET COUNT 166 10^3/UL (140-415); POTASSIUM 4.4 mmol/L (3.5-5.1); RED BLOOD COUNT 4.26 10^6/ul (4.70-6.10); RED CELL DISTRIBUTION WIDTH 14.6 % (11.5-14.5); WHITE BLOOD COUNT 11.2 10^3/ul (4.8-10.8)
[2017-07-24 09:04] LABS: INR 3.2; PROTIME 33.2 Sec (12.2-14.2); PT RATIO 2.6
[2017-07-24 09:08] LABS: PARTIAL THROMBOPLASTIN TIME 79.2 Sec (25.0-35.0)
[2017-07-24] MEDS ORDERED: ALTEPLASE 10 MG in SOD CHLORIDE 0.9% 100 ML IVPB SCH (09:15)
[2017-07-24] MEDS ORDERED: ALTEPLASE 10 MG in SOD CHLORIDE 0.9% 100 ML IVPB ONE (09:15)
[2017-07-24] MEDS ORDERED: HEPARIN 25000 UNITS/250 ML 250 ML IV SCH ×5 (10:00→18:00)
--- NOTE | 2017-07-24 10:27 | PN ---
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 -S/P Right fem-pop Stent grafting and Aortoiliac angiogram 07/23/2017 -Bilateral lower extremity acute venous thrombosis involving CFV iliac veins and IVC: It seems the patient may have failed with coumadin therapy as hes had previous acute onsets of venous thrombosis with therapeutic INR's 07/23/2017: -S/P Bilateral lower extremity venogram -S/P Bilateral CI, EI, CF veins and caval mechanical thrombectomy -S/P Thrombolysis Catheters 07/24/2017: -S/P Bilateral lysis check - 07/24 -Appreciate hematology Evaluation -Continue neurovascular checks -Continue Heparin gtt via sheaths at 300Units per hour -Continue TPA gtt via lysis catheters at 0.75mg per hour -Continue Fibrinogen, coags, chemistry and CBC blood work Q6 hours -Continue UOP monitoring -Continue IVF hydration NS @135ml/hr -May have liquid diet and NPO past midnight -Optimize vascular status (BP meds, diet, nutrition, exercise, sugar control, antiplatelets). -Discussed findings, plan and management with the patient and he understands. -Discussed limb salvage and realistic outcomes of our current findings and the possibility of limb loss is there. Patient fully understands and would like to have everything done in order to provide adequate limb salvage for him. -Appreciate cardiology evaluation for possible surgical revascularization. -Thank you for allowing us to partake in the care of your patient. Please call with any questions. Problems: Subjective 24 Hr Interval Summary patient feels better today w improved symptoms Exam/Review of Systems Vital Signs Vitals Vital Signs Date Time Temp Pulse Resp B/P Pulse Ox O2 Delivery O2 Flow Rate FiO2 07/24/17 06:00 101 18 108/75 91 07/24/17 04:00 98.2 07/22/17 00:30 Room Air Intake and Output 07/23/17 07/23/17 07/24/17 15:00 23:00 07:00 Intake Total 404 ml 90 ml Output Total 380 ml 350 ml Balance 24 ml -260 ml Exam Free Text/Dictation GENERAL: Alert and oriented x3, PULMONARY: Clear to auscultation bilaterally CARDIOVASCULAR: S1, S2 present ABDOMEN: Soft, nontender, nondistended. Bowel sounds positive. EXTREMITIES: -Right lower extremity palpable femoral pulse, faint pedal pulse. Motor and sensory intact, although he has a little bit of pain upon standing. Capillary refill 3 to 4 seconds. Dopplerable anterior tibial signal, edema 2+ -Left lower extremity, palpable femoral pulse, faint pedal pulse. Motor and sensory intact. Capillary refill 3 to 4 seconds. edema 2+ -Bilateral groin catheters intact and functional Results Result Diagram: 07/24/1722107/24/17221 MATT MCCULLOUGH MD Jul 24, 2017 10:26
--- NOTE | 2017-07-24 12:27 | CONS ---
Date/Time of Note Date/Time of Note DATE: 07/24/17 TIME: 12:21 Assessment/Plan Assessment/Plan Chief Complaint/Hosp Course IMPRESSION: 1. Preoperative evaluation prior to possible surgical vascular intervention.- negative trop x3 2. Hypertension. 3. Dyslipidemia. 4. Abnormal electrocardiogram with nonspecific ST and T-wave abnormalities. 5. Left lower extremity deep venous thrombosis status post inferior vena cava filter, on Coumadin. post-op s/p placement of perfusion/lysis catheter ninto LE bilateral 6. Chronic obstructive pulmonary disease. 7. 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 Recc: -Remain in ICU on tele -Folloow perfusion catheter/lysis on TPA/heparin and follow for bleedinig complications -Contiue statin -ongoing heme eval with recc for initiation of Eliquis once procedures completed and plavix. -Follow volume status clsoely -await echo to assess EF/rule out major valve abnl Problems: Consultation Date/Type/Reason Admit Date/Time Jul 21, 2017 at 23:03 Initial Consult Date 07/23/17 Type of Consultation: cardiology Reason for Consultation pre-op Referring Provider: MATT MCCULLOUGH MD Exam/Review of Systems Vital Signs Vitals Vital Signs Date Time Temp Pulse Resp B/P Pulse Ox O2 Delivery O2 Flow Rate FiO2 07/24/17 06:00 101 18 108/75 91 07/24/17 04:00 98.2 07/22/17 00:30 Room Air Intake and Output 07/23/17 07/23/17 07/24/17 15:00 23:00 07:00 Intake Total 404 ml 100 ml Output Total 380 ml 350 ml Balance 24 ml -250 ml Exam Review of Systems: CONSTITUTIONAL: No fevers, chills. PULMONARY: No sob CARDIOVASCULAR: No chest pain/palpitations GASTROINTESTINAL: No nausea/vomiting. GENITOURINARY: No hematuria/dysuria. MUSCULOSKELETAL: No myagias/arthalgias. PSYCHIATRIC: The patient denies depression. NEUROLOGIC: No weakness Constitutional: alert Psych: no complaints Head: normocephalic ENMT: mucosa pink and moist Neck: supple Respiratory: clear to auscultation Cardiovascular: regular rate and rhythm Gastrointestinal: non-tender, soft Musculoskeletal: muscle tone (normal) Extremities: pitting pedal edema (bilateral R>L) Neurological: other (No focal deficits) Results Result Diagram: 07/24/17 0749 07/24/17 0749 Results 24 hrs Laboratory Tests Test 07/23/17 12:36 07/23/17 19:55 07/24/17 02:22 07/24/17 05:49 Troponin I < 0.012 0.019 White Blood Count 15.6 H 12.1 #H Red Blood Count 3.85 L 3.65 L Hemoglobin 10.8 L 10.0 L Hematocrit 33.4 L 31.0 L Mean Corpuscular Volume 86.8 84.9 Mean Corpuscular Hemoglobin 28.1 L 27.4 L Mean Corpuscular Hemoglobin Concent 32.3 32.3 Red Cell Distribution Width 14.2 14.2 Platelet Count 139 L 155 Mean Platelet Volume 9.9 10.3 Neutrophils % 85.7 H 80.3 H Lymphocytes % 5.2 L 10.2 L Monocytes % 7.8 8.2 Eosinophils % 0.1 0.2 Basophils % 0.2 0.3 Nucleated Red Blood Cells % 0.0 0.0 Neutrophils # 13.3 H 9.7 H Lymphocytes # 0.8 1.2 Monocytes # 1.2 H 1.0 H Eosinophils # 0.0 0.0 Basophils # 0.0 0.0 Nucleated Red Blood Cells # 0.0 0.0 Prothrombin Time 36.7 H 34.5 H Prothrombin Time Ratio 2.9 2.7 INR International Normalized Ratio 3.63 3.36 Activated Partial Thromboplast Time > 180.0 *H 95.7 *H Fibrinogen 298.0 # 292.0 Sodium Level 139 137 Potassium Level 4.7 4.4 Chloride Level 105 105 Carbon Dioxide Level 25 26 Anion Gap 14 10 Blood Urea Nitrogen 25 H 22 H Creatinine 0.88 0.76 Glucose Level 114 102 Calcium Level 8.6 8.7 Magnesium Level 1.9 2.0 Triglycerides Level 96 Cholesterol Level 153 LDL Cholesterol, Calculated 93 HDL Cholesterol 41 Cholesterol/HDL Ratio 3.7 Lab Scanned Report BLOOD TRANSFUSION Test 07/24/17 07:49 White Blood Count 11.2 H Red Blood Count 4.26 L Hemoglobin 11.4 L Hematocrit 36.9 L Mean Corpuscular Volume 86.6 Mean Corpuscular Hemoglobin 26.8 L Mean Corpuscular Hemoglobin Concent 30.9 L Red Cell Distribution Width 14.6 H Platelet Count 166 Mean Platelet Volume 10.3 Neutrophils % 79.9 H Lymphocytes % 10.6 L Monocytes % 8.2 Eosinophils % 0.4 Basophils % 0.4 Nucleated Red Blood Cells % 0.0 Neutrophils # 9.0 H Lymphocytes # 1.2 Monocytes # 0.9 Eosinophils # 0.0 Basophils # 0.0 Nucleated Red Blood Cells # 0.0 Prothrombin Time 33.2 H Prothrombin Time Ratio 2.6 INR International Normalized Ratio 3.20 Activated Partial Thromboplast Time 79.2 *H Fibrinogen 357.0 # Sodium Level 139 Potassium Level 4.4 Chloride Level 104 Carbon Dioxide Level 26 Anion Gap 13 Blood Urea Nitrogen 20 Creatinine 0.82 Glucose Level 87 Calcium Level 9.2 Magnesium Level 2.1 Medications Medications Current Medications Dutasteride (Avodart) 0.5 mg DAILY PO Last administered on 07/24/17 08:10; Admin Dose 0.5 MG; Start 07/22/17 at 09:00 Gabapentin (Neurontin) 300 mg QHS PO Last administered on 07/23/17 21:07; Admin Dose 300 MG; Start 07/22/17 at 21:00 Warfarin Sodium (Coumadin) 7.5 mg DAILY@17 PO Last administered on 07/22/17 17:44; Admin Dose 7.5 MG; Start 07/22/17 at 17:00; Status Future Hold Salmeterol Xinafoate/ Fluticasone (Advair 250/50 Diskus) 1 inh BID INH Last administered on 07/24/17 08:10; Admin Dose 1 INH; Start 07/22/17 at 09:00 Atorvastatin Calcium (Lipitor) 10 mg QAM PO Last administered on 07/24/17 08: 09; Admin Dose 10 MG; Start 07/22/17 at 09:00 Acetaminophen (Tylenol Tab) 650 mg QID PRN PO PAIN LEVEL 1-5; Start 07/21/17 at 23:30 Ondansetron HCl (Zofran Inj) 4 mg Q6H PRN IV NAUSEA AND/OR VOMITING Last administered on 07/22/17 11:48; Admin Dose 4 MG; Start 07/21/17 at 23:30 Acetaminophen/ Hydrocodone Bitart ([place] (5/325)) 1 tab Q4H PRN PO PAIN LEVEL 4 -7 Last administered on 07/24/17 08:10; Admin Dose 1 TAB; Start 07/21/17 at 23:30 Morphine Sulfate (morphine) 2 mg Q4H PRN IV MODERATE PAIN LEVEL 4-6 Last administered on 07/24/17 01:47; Admin Dose 2 MG; Start 07/21/17 at 23:30 Famotidine (Pepcid Iv) 20 mg BID IV Last administered on 07/24/17 08:10; Admin Dose 20 MG; Start 07/22/17 at 09:00 Hydromorphone HCl 1 mg 1 mg Q3H PRN IV PAIN Last administered on 07/24/17 04: 30; Admin Dose 1 MG; Start 07/23/17 at 22:00 Alteplase, Recombinant 10 mg/ Sodium Chloride 100 ml @ 7.5 mls/hr ONCE IVPB Last administered on 07/24/17 09:15; Admin Dose 7.5 MLS/HR; Start 07/24/17 at 09:15; Stop 07/24/17 at 19:59 Alteplase, Recombinant 10 mg/ Sodium Chloride 100 ml @ 7.5 mls/hr ONCE ONCE IVPB Last administered on 07/24/17 09:15; Admin Dose 7.5 MLS/HR; Start 07/24 at 09:15; Stop 07/24/17 at 22:34 Alteplase, Recombinant 6 mg/ Sodium Chloride 60 ml @ 7.5 mls/hr Q8H IVPB ; Start 07/24/17 at 20:00 Alteplase, Recombinant/ Sodium Chloride (Cathflo (Activase)/NS) 60 ml @ 7.5 mls /hr Q8H IVPB ; Start 07/24/17 at 20:00 AIMEE LANDEROS Jul 24, 2017 12:27
[2017-07-24 15:51] LABS: BASOPHILS % 0.3 % (0.0-2.0); EOSINOPHILS # 0.1 10^3/ul (0.0-0.5); EOSINOPHILS % 0.4 % (0.0-7.0); HEMATOCRIT 31.9 % (42.0-52.0); HEMOGLOBIN 10.3 g/dl (14.0-18.0); LYMPHOCYTES # 0.9 10^3/ul (0.8-2.9); MEAN CORPUSCULAR HEMOGLOBIN 27.6 pg (29.0-33.0); MEAN CORPUSCULAR HGB CONC 32.3 g/dl (32.0-37.0); MEAN CORPUSCULAR VOLUME 85.5 fl (82.0-101.0); MEAN PLATELET VOLUME 9.8 fl (7.4-10.4); MONOCYTES % 8.5 % (0.0-11.0); NEUTROPHIL # 9.7 10^3/ul (1.6-7.5); NEUTROPHILS % 82.3 % (39.0-77.0); PLATELET COUNT 193 10^3/UL (140-415); RED BLOOD COUNT 3.73 10^6/ul (4.70-6.10); RED CELL DISTRIBUTION WIDTH 14.3 % (11.5-14.5); WHITE BLOOD COUNT 11.8 10^3/ul (4.8-10.8)
[2017-07-24 16:13] LABS: INR 3.22; PROTIME 33.4 Sec (12.2-14.2); PT RATIO 2.6
[2017-07-24 16:14] LABS: PARTIAL THROMBOPLASTIN TIME 65.2 Sec (25.0-35.0)
[2017-07-24 16:28] LABS: CALCIUM 8.5 mg/dl (8.4-10.2); CREATININE 0.78 mg/dl (0.61-1.24); PHOSPHORUS 3.1 mg/dl (2.5-4.9); POTASSIUM 4.1 mmol/L (3.5-5.1)
--- NOTE | 2017-07-24 20:14 | OPR ---
DATE OF OPERATION: 07/23/2017 SURGEON: Ash Mendiola MD. PREOPERATIVE DIAGNOSIS: Right femoral popliteal aneurysm and bilateral lower extremity deep vein th rombosis and inferior vena cava thrombosis. POSTOPERATIVE DIAGNOSIS: Right femoral popliteal aneurysm and bilateral lower extremity deep vein t hrombosis and inferior vena cava thrombosis. ANESTHESIA: Local with moderate sedation. ESTIMATED BLOOD LOSS: 350 mL. COMPLICATIONS: None. HEPARIN: As recorded. CONTRAST: As recorded. TRANSFUSIONS: One unit of packed red blood cells. ACCESS: 1. Left common femoral artery 7-Nauruan. 2. Right common femoral vein with a 9-Nauruan sheath. 3. Left common femoral vein 9-Nauruan sheath. CLOSURE: Manual compression and 6-Nauruan Angio-Seal for the right common femoral artery. SEDATION: Under physician supervision with moderate sedation, fentanyl and Versed were administered intravenously under continuous monitoring by the interventional team and attending physician. Puls e oximeter, heart rate and blood pressures were continuously monitored by the interventional surgeon . The physician's time was a total of 1/2 hours of [id number]-[id number] sedation time with the patient. INDICATIONS: This is a 72-year-old gentleman who presented to us with history of bilateral lower ex tremity atherosclerosis with lower extremity disabling claudication and an extensive history of bila teral lower extremity deep vein thrombosis with an IVC filter placement. It seems the patient in past has developed acute DVTs despite being on anticoagulation, that is why he had placed an IVC f ilter at outside hospital. As of recent, the patient, over the past few days, had developed worseni ng bilateral lower extremity pain, right worse than left. It would extend down to his lower leg, up per thigh, and his scrotum and abdomen. In light of these findings, alternatives, risk and benefits were discussed with obtaining an angiogram, both arterial and venous, to further evaluate the findi ngs of thrombosis and his aneurysm. Therefore, risks and benefits of an angiogram, balloon angiopla sty, stenting and atherectomy, lysis, and thrombectomy were discussed with the patient. Risks inclu ding but not limited to bleeding, thrombosis, embolization, myocardial infarction, , stroke, de vice malfunction, infection, nephrotoxicity, limb loss, nerve injury, intracranial hemorrhage, and t he patient has agreed to proceed. This is the first diagnostic angiogram in the clinical setting of the current findings. PROCEDURE: 1. Ultrasound-guided axis of the left common femoral artery. 2. Ultrasound-guided axis of the left common femoral vein. 3. Ultrasound-guided access of the right common femoral vein. 4. Introduction of catheter into the aorta. Aortoiliac angiogram was obtained. Third order select ion of the right common femoral artery. 5. Right femoral popliteal stent grafting using a Viabahn 8 x 10 mm and 8 x 5 mm respectively. 6. Bilateral lower extremity venogram. 7. Thrombectomy of the right common femoral vein, external iliac vein, common iliac vein thrombecto my. 8. Left common femoral vein, external iliac vein, common iliac vein thrombectomy. 9. Caval thrombectomy. 10. Intravascular ultrasound of the bilateral common femoral veins, bilateral external iliac veins bilateral common iliac veins. 11. Intravascular ultrasound of the inferior vena cava. 12. Lysis catheter placement of the ileocaval segment of 20 cm treatment length. FINDINGS: 1. It was identified patient having a large distal superficial femoral artery and above-knee poplit eal artery aneurysm with severe stenosis across the segment with the patient having limited blood fl ow down below the ankle area. 2. Identification of severe ileocaval thrombosis was identified upon our venogram. DESCRIPTION OF PROCEDURE: The patient was brought into the angio suite where he was positioned in s upine position on the fluoroscopic table. Sedation was administered without any complications. The right groin was then shaved, prepped and draped in usual standard sterile fashion. Time out and ap propriate site was marked and confirmed. Local anesthesia was then infiltrated in the region of the bilateral common femoral artery and veins. The left common femoral artery was then cannulated with a micro access needle under ultrasound guidance and a guidewire was advanced into the iliac artery. On fluoroscopic guidance, the needle was then removed and a microcatheter was then placed. Bentso n wire was then passed into the infrarenal aorta under fluoroscopic guidance followed by a short 5-F rench sheath over the wire. The sheath was then appropriately flushed with heparinized saline solut ion. At this point, Omniflush catheter was then used to select the right common femoral artery in a third order selection. At this point, a stiff wire was placed and our Omniflush catheter was remov ed and our sheath was exchanged to the 7-Nauruan Destination sheath that was placed in the superficia l femoral artery. Once this was obtained using our guiding catheter and Glidewire, we crossed the a nicolas of large femoral popliteal aneurysm and at this point it was decided to go ahead and place a yasemin nt graft covering this segment of aneurysm, excluding the thrombus portion of the aneurysm. Using o ur marking catheters and marking around the screening, we marked areas we wanted to stent graft acro ss in the femoral popliteal segment. Using Viabahn 8 x 10 mm and 8 x 5 mm stent grafts, we stented the segment of the fem-pop. Upon completion angiogram, patient had adequate flow all the way down t o the ankle. The patient did have severe pedal disease, which would probably correspond to the find ings of the popliteal artery with history of thromboembolism that he has had in his past, most likel y. At this point, we went ahead and removed all catheters, wires and sheaths from the left common f emoral artery and Angio-Seal closure device was deployed at the puncture site. The patient tolerate d this aspect of the procedure well and manual pressure was held at this segment. Upon completion of this aspect of the procedure, we went ahead and obtained access of the bilateral common femoral veins using ultrasound guidance. The veins were then cannulated with a micro access needle under ultrasound guidance and a guidewire was advanced into the iliac vein under fluoroscopic guidance. The needle was then removed and a microcatheter was placed in the bilateral external tabatha ac veins. Upon venogram, it was identified patient having severe ileocaval occlusion, therefore, a Bentson wire was then passed into the infrarenal IVC under fluoroscopic guidance followed by a short 9-Nauruan sheath over the wire. The sheath was then appropriately flushed with heparinized saline s olution. At this point, we went ahead and appropriately decided to perform mechanical thrombectomy in order to provide some recanalization of venous drainage into the cava. 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 At this p oint, using our penumbra thrombectomy device, went ahead and performed a thrombectomy of the bilater al common femoral veins, bilateral external iliac veins, bilateral common iliac veins, the infrarena l cava, and within the IVC filter, where there was an extensive amount of mural thrombus identified. This process of thrombectomy also had a blood loss about 350 mL; therefore, it was decided to love sfuse the patient with 1 unit of blood. Upon the completion of this, completion angiogram identifie d the patient is still having residual thrombus, therefore, it was decided to place lysis catheters and to evaluate and interrogate the venous system with intravascular ultrasound. Therefore, intrava scular ultrasound was performed first with evaluating the bilateral common femoral veins, bilateral external iliac veins, common iliac veins, IVC, and across IVC where the filter was placed. Suggesti ons of extensive clot was identified; therefore, we decided to place 20 cm treatments of a lysis cat heter across both groin sheaths. At this point, we decided to place bilateral sheaths with 500 unit s of heparin continuously through the sheath and TPA infusion of 0.5 mg in each of the sheaths. At this point, the patient tolerated the procedure well and was taken to the postanesthesia care unit i n stable condition. We will bring the patient back for a lysis check in the morning to further evaluate his ileocaval th rombus burden. Dictated By: ASH KNOWLES/FERNIE Conf#: [id number] DID#: [id number]
--- NOTE | 2017-07-24 20:23 | RADRPT ---
PROCEDURE: XR Chest. CLINICAL INDICATION: Wheezing. TECHNIQUE: Single frontal chest x-ray. COMPARISON: 07/21/2017 FINDINGS: The cardiomediastinal silhouette is unremarkable. There is no congestive heart failure.. Lungs are mildly hyperinflated. There is no focal infiltrate. Unchanged right upper lobe probable granuloma. There is no pleural effusion. There is no pneumothorax. The osseous structures are unremarkable. IMPRESSION: No significant interval change. No CHF or infiltrate. RPTAT: HMVK .Cory Goodman MD, Date Time Electronically viewed and signed by .Cory Goodman MD, on 07/24/2017 20:23 .K/
[2017-07-24] MEDS: ALBUTEROL/IPRATROPIUM (NEB) 3 ML AMP HHN SCH (20:31)
--- NOTE | 2017-07-24 20:43 | CONS ---
Date/Time of Note Date/Time of Note DATE: 07/24/17 TIME: 20:27 Assessment/Plan Assessment/Plan Chief Complaint/Hosp Course Impression/Plan #Bilateral lower extremity deep vein thrombosis- pt is now s/p thrombectomy of bilateral lower extremities with heparin and TPA being administered through bilateral sheaths. 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 Given that he has both arterial and venous thrombosis he will need prophylaxis for both arterial and venous thromboembolism. -Once patient has completed his procedures, would recommend to start on [id number] mg p.o. b.i.d. and then switched to 5 mg b.i.d. thereafter. - patient will need lifelong anticoagulation -Would recommend to start Plavix 75 mg q. day to prevent and treat the arterial thrombosis -f/u hypercoagulable workup at this time including factor V Leiden mutation, prothrombin gene mutation, antithrombin III mutation, and workup for antiphospholipid antibodies. We will check a protein C&S deficiency as an outpatient since this patient recently was on Coumadin and results of these tests would currently be unreliable Problems: Consultation Date/Type/Reason Admit Date/Time Jul 21, 2017 at 23:03 Initial Consult Date 07/23/17 Type of Consultation: hematology Reason for Consultation Bilateral LE DVT Referring Provider: MATT MCCULLOUGH MD 24 HR Interval Summary Free Text/Dictation pt is s/p Aortoiliac angiogram . Underwent: Right femoral popliteal stent grafting as well as thrombectomy of the deep vein thrombosis in the bilateral lower extremities. Pt currently in ICU on Heparin gtt and TPA. stable. Exam/Review of Systems Vital Signs Vitals Vital Signs Date Time Temp Pulse Resp B/P Pulse Ox O2 Delivery O2 Flow Rate FiO2 07/24/17 18:45 118 43 128/79 97 Room Air 07/24/17 16:00 97.9 Intake and Output 07/23/17 07/23/17 07/24/17 15:00 23:00 07:00 Intake Total 404 ml 100 ml Output Total 380 ml 400 ml Balance 24 ml -300 ml Exam Constitutional: alert, oriented Psych: no complaints Head: normocephalic Eyes: nl conjunctiva ENMT: nl external ears & nose Neck: non-tender, supple Respiratory: clear to auscultation Cardiovascular: regular rate and rhythm Gastrointestinal: soft Extremities: other (bilaterl sheaths in place ) Results Result Diagram: 07/24/17 1540 07/24/17 1540 Results 24 hrs Laboratory Tests Test 07/24/17 02:22 07/24/17 05:49 07/24/17 07:49 07/24/17 15:40 White Blood Count 12.1 #H 11.2 H 11.8 H Red Blood Count 3.65 L 4.26 L 3.73 L Hemoglobin 10.0 L 11.4 L 10.3 L Hematocrit 31.0 L 36.9 L 31.9 L Mean Corpuscular Volume 84.9 86.6 85.5 Mean Corpuscular Hemoglobin 27.4 L 26.8 L 27.6 L Mean Corpuscular Hemoglobin Concent 32.3 30.9 L 32.3 Red Cell Distribution Width 14.2 14.6 H 14.3 Platelet Count 155 166 193 Mean Platelet Volume 10.3 10.3 9.8 Neutrophils % 80.3 H 79.9 H 82.3 H Lymphocytes % 10.2 L 10.6 L 8.0 L Monocytes % 8.2 8.2 8.5 Eosinophils % 0.2 0.4 0.4 Basophils % 0.3 0.4 0.3 Nucleated Red Blood Cells % 0.0 0.0 0.0 Neutrophils # 9.7 H 9.0 H 9.7 H Lymphocytes # 1.2 1.2 0.9 Monocytes # 1.0 H 0.9 1.0 H Eosinophils # 0.0 0.0 0.1 Basophils # 0.0 0.0 0.0 Nucleated Red Blood Cells # 0.0 0.0 0.0 Prothrombin Time 34.5 H 33.2 H 33.4 H Prothrombin Time Ratio 2.7 2.6 2.6 INR International Normalized Ratio 3.36 3.20 3.22 Activated Partial Thromboplast Time 95.7 *H 79.2 *H 65.2 H Fibrinogen 292.0 357.0 # 386.0 # Sodium Level 137 139 137 Potassium Level 4.4 4.4 4.1 Chloride Level 105 104 101 Carbon Dioxide Level 26 26 27 Anion Gap 10 13 13 Blood Urea Nitrogen 22 H 20 18 Creatinine 0.76 0.82 0.78 Glucose Level 102 87 100 Calcium Level 8.7 9.2 8.5 Magnesium Level 2.0 2.1 2.0 Triglycerides Level 96 Cholesterol Level 153 LDL Cholesterol, Calculated 93 HDL Cholesterol 41 Cholesterol/HDL Ratio 3.7 Lab Scanned Report BLOOD TRANSFUSION Phosphorus Level 3.1 Medications Medications Current Medications Dutasteride (Avodart) 0.5 mg DAILY PO Last administered on 07/24/17 08:10; Admin Dose 0.5 MG; Start 07/22/17 at 09:00 Gabapentin (Neurontin) 300 mg QHS PO Last administered on 07/23/17 21:07; Admin Dose 300 MG; Start 07/22/17 at 21:00 Warfarin Sodium (Coumadin) 7.5 mg DAILY@17 PO Last administered on 07/22/17 17:44; Admin Dose 7.5 MG; Start 07/22/17 at 17:00; Status Future Hold Salmeterol Xinafoate/ Fluticasone (Advair 250/50 Diskus) 1 inh BID INH Last administered on 07/24/17 08:10; Admin Dose 1 INH; Start 07/22/17 at 09:00 Atorvastatin Calcium (Lipitor) 10 mg QAM PO Last administered on 07/24/17 08: 09; Admin Dose 10 MG; Start 07/22/17 at 09:00 Acetaminophen (Tylenol Tab) 650 mg QID PRN PO PAIN LEVEL 1-5; Start 07/21/17 at 23:30 Ondansetron HCl (Zofran Inj) 4 mg Q6H PRN IV NAUSEA AND/OR VOMITING Last administered on 07/22/17 11:48; Admin Dose 4 MG; Start 07/21/17 at 23:30 Acetaminophen/ Hydrocodone Bitart ([place] (5/325)) 1 tab Q4H PRN PO PAIN LEVEL 4 -7 Last administered on 07/24/17 12:57; Admin Dose 1 TAB; Start 07/21/17 at 23:30 Morphine Sulfate (morphine) 2 mg Q4H PRN IV MODERATE PAIN LEVEL 4-6 Last administered on 07/24/17 14:59; Admin Dose 2 MG; Start 07/21/17 at 23:30 Famotidine (Pepcid Iv) 20 mg BID IV Last administered on 07/24/17 08:10; Admin Dose 20 MG; Start 07/22/17 at 09:00 Hydromorphone HCl 1 mg 1 mg Q3H PRN IV PAIN Last administered on 07/24/17 18: 50; Admin Dose 1 MG; Start 07/23/17 at 22:00 Alteplase, Recombinant 6 mg/ Sodium Chloride 60 ml @ 7.5 mls/hr Q8H IVPB ; Start 07/24/17 at 20:00 Alteplase, Recombinant/ Sodium Chloride (Cathflo (Activase)/NS) 60 ml @ 7.5 mls /hr Q8H IVPB ; Start 07/24/17 at 20:00 AMARA MCINTYRE M.D. Jul 24, 2017 20:37
[2017-07-24] MEDS: GABAPENTIN 300 MG CAP PO SCH (21:19)
[2017-07-25] VITALS (42 sets, daily range): BP systolic 8–127; BP diastolic 53–94; PULSE 86–118; RESP 13–47
[2017-07-25] MEDS: SOD CHLORIDE 0.9% IVPB SCH ×10 (00:26→13:26)
[2017-07-25] MEDS: ALTEPLASE IVPB SCH ×10 (00:26→13:26)
[2017-07-25] MEDS: ALBUTEROL/IPRATROPIUM (NEB) 3 ML AMP HHN SCH ×6 (01:05→20:08)
[2017-07-25 01:08] LABS: BASOPHILS % 0.3 % (0.0-2.0); EOSINOPHILS # 0.1 10^3/ul (0.0-0.5); EOSINOPHILS % 0.6 % (0.0-7.0); HEMATOCRIT 29.1 % (42.0-52.0); HEMOGLOBIN 9.6 g/dl (14.0-18.0); LYMPHOCYTES # 1.1 10^3/ul (0.8-2.9); LYMPHOCYTES % 9.4 % (15.0-51.0); MEAN CORPUSCULAR HEMOGLOBIN 27.8 pg (29.0-33.0); MEAN CORPUSCULAR VOLUME 84.3 fl (82.0-101.0); MEAN PLATELET VOLUME 9.6 fl (7.4-10.4); MONOCYTE # 1.1 10^3/ul (0.3-0.9); MONOCYTES % 9.7 % (0.0-11.0); NEUTROPHILS % 79.4 % (39.0-77.0); PLATELET COUNT 195 10^3/UL (140-415); RED BLOOD COUNT 3.45 10^6/ul (4.70-6.10); RED CELL DISTRIBUTION WIDTH 14.1 % (11.5-14.5); WHITE BLOOD COUNT 11.4 10^3/ul (4.8-10.8)
[2017-07-25 01:25] LABS: INR 3.36; PROTIME 34.5 Sec (12.2-14.2); PT RATIO 2.7
[2017-07-25 01:31] LABS: PARTIAL THROMBOPLASTIN TIME 87.8 Sec (25.0-35.0)
[2017-07-25 01:32] LABS: CALCIUM 8.4 mg/dl (8.4-10.2); CREATININE 0.73 mg/dl (0.61-1.24); MAGNESIUM 1.9 mg/dl (1.7-2.5); PHOSPHORUS 3.4 mg/dl (2.5-4.9); POTASSIUM 4.1 mmol/L (3.5-5.1)
[2017-07-25] MEDS: HYDROmorphONE 1 MG/ML SYG IV PRN ×4 (04:28→23:33)
[2017-07-25] MEDS: FAMOTIDINE 20 MG INJ IV SCH ×2 (07:40→21:58)
[2017-07-25] MEDS: DUTASTERIDE 0.5 MG CAP PO SCH (07:40)
[2017-07-25] MEDS: ATORVASTATIN 10 MG TAB PO SCH (07:41)
[2017-07-25] MEDS: HYDROCODONE/APAP (5/325) TAB PO PRN ×2 (07:41→19:21)
[2017-07-25 08:02] LABS: BASOPHILS % 0.4 % (0.0-2.0); EOSINOPHILS # 0.1 10^3/ul (0.0-0.5); EOSINOPHILS % 1.1 % (0.0-7.0); HEMATOCRIT 30.1 % (42.0-52.0); HEMOGLOBIN 9.9 g/dl (14.0-18.0); LYMPHOCYTES # 1.2 10^3/ul (0.8-2.9); LYMPHOCYTES % 11.6 % (15.0-51.0); MEAN CORPUSCULAR HEMOGLOBIN 28.1 pg (29.0-33.0); MEAN CORPUSCULAR HGB CONC 32.9 g/dl (32.0-37.0); MEAN CORPUSCULAR VOLUME 85.5 fl (82.0-101.0); MEAN PLATELET VOLUME 9.7 fl (7.4-10.4); MONOCYTE # 1.1 10^3/ul (0.3-0.9); MONOCYTES % 10.4 % (0.0-11.0); NEUTROPHIL # 7.9 10^3/ul (1.6-7.5); NEUTROPHILS % 75.8 % (39.0-77.0); PLATELET COUNT 209 10^3/UL (140-415); RED BLOOD COUNT 3.52 10^6/ul (4.70-6.10); RED CELL DISTRIBUTION WIDTH 14.2 % (11.5-14.5); WHITE BLOOD COUNT 10.4 10^3/ul (4.8-10.8)
[2017-07-25 08:09] LABS: INR 3.22; PROTIME 33.4 Sec (12.2-14.2); PT RATIO 2.6
[2017-07-25 08:14] LABS: CALCIUM 8.5 mg/dl (8.4-10.2); CREATININE 0.76 mg/dl (0.61-1.24); POTASSIUM 4.3 mmol/L (3.5-5.1)
[2017-07-25] MEDS: SALMETEROL/FLUTICASONE 250/50 INHA INH SCH ×2 (09:33→21:58)
[2017-07-25] MEDS: morphine 2 MG INJ IV PRN (10:08)
--- NOTE | 2017-07-25 11:38 | CONS ---
Date/Time of Note Date/Time of Note DATE: 07/25/17 TIME: 11:35 Assessment/Plan Assessment/Plan Chief Complaint/Hosp Course IMPRESSION: 1. Preoperative evaluation prior to possible surgical vascular intervention.- negative trop x3 2. Hypertension. 3. Dyslipidemia. 4. Abnormal electrocardiogram with nonspecific ST and T-wave abnormalities. 5. Left lower extremity deep venous thrombosis status post inferior vena cava filter, on Coumadin. post-op s/p placement of perfusion/lysis catheter ninto LE bilateral 6. Chronic obstructive pulmonary disease. 7. 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 Recc: -Remain in ICU on tele -Follow perfusion catheter/lysis on TPA/heparin and follow for bleedinig complications -Continue statin -ongoing heme eval with recc for initiation of Eliquis once procedures completed and plavix. -Follow volume status clsoely Problems: Consultation Date/Type/Reason Admit Date/Time Jul 21, 2017 at 23:03 Initial Consult Date 07/23/17 Type of Consultation: cardiology Reason for Consultation Pre-op Referring Provider: MATT MCCULLOUGH MD Exam/Review of Systems Vital Signs Vitals Vital Signs Date Time Temp Pulse Resp B/P Pulse Ox O2 Delivery O2 Flow Rate FiO2 07/25/17 08:34 92 14 98 21 07/25/17 07:00 105/73 07/25/17 06:00 Room Air 07/25/17 04:00 99.3 Intake and Output 07/24/17 07/24/17 07/25/17 15:00 23:00 07:00 Intake Total 655.0 ml 675.0 ml 123.0 ml Output Total 465 ml 385 ml 310 ml Balance 190.0 ml 290.0 ml -187.0 ml Exam Review of Systems: CONSTITUTIONAL: No fevers, chills. PULMONARY: No sob CARDIOVASCULAR: No chest pain/palpitations GASTROINTESTINAL: No nausea/vomiting. GENITOURINARY: No hematuria/dysuria. MUSCULOSKELETAL: No myagias/arthalgias. PSYCHIATRIC: The patient denies depression. NEUROLOGIC: No weakness Constitutional: alert Psych: no complaints Head: normocephalic ENMT: mucosa pink and moist Neck: jvd (9 cm water), supple Respiratory: diminished breath sounds Cardiovascular: regular rate and rhythm Gastrointestinal: non-tender, soft Musculoskeletal: muscle tone (normal) Extremities: pitting pedal edema (trace/B) Neurological: other (No focal deficits) Results Result Diagram: 07/25/17 0735 07/25/17 0735 Results 24 hrs Laboratory Tests Test 07/24/17 15:40 07/25/17 00:59 07/25/17 07:35 White Blood Count 11.8 H 11.4 H 10.4 Red Blood Count 3.73 L 3.45 L 3.52 L Hemoglobin 10.3 L 9.6 L 9.9 L Hematocrit 31.9 L 29.1 L 30.1 L Mean Corpuscular Volume 85.5 84.3 85.5 Mean Corpuscular Hemoglobin 27.6 L 27.8 L 28.1 L Mean Corpuscular Hemoglobin Concent 32.3 33.0 32.9 Red Cell Distribution Width 14.3 14.1 14.2 Platelet Count 193 195 209 Mean Platelet Volume 9.8 9.6 9.7 Neutrophils % 82.3 H 79.4 H 75.8 Lymphocytes % 8.0 L 9.4 L 11.6 L Monocytes % 8.5 9.7 10.4 Eosinophils % 0.4 0.6 1.1 Basophils % 0.3 0.3 0.4 Nucleated Red Blood Cells % 0.0 0.0 0.0 Neutrophils # 9.7 H 9.0 H 7.9 H Lymphocytes # 0.9 1.1 1.2 Monocytes # 1.0 H 1.1 H 1.1 H Eosinophils # 0.1 0.1 0.1 Basophils # 0.0 0.0 0.0 Nucleated Red Blood Cells # 0.0 0.0 0.0 Prothrombin Time 33.4 H 34.5 H 33.4 H Prothrombin Time Ratio 2.6 2.7 2.6 INR International Normalized Ratio 3.22 3.36 3.22 Activated Partial Thromboplast Time 65.2 H 87.8 *H 78.0 *H Fibrinogen 386.0 # 424.0 # 466.0 #H Sodium Level 137 135 136 Potassium Level 4.1 4.1 4.3 Chloride Level 101 102 101 Carbon Dioxide Level 27 27 30 Anion Gap 13 10 9 Blood Urea Nitrogen 18 14 14 Creatinine 0.78 0.73 0.76 Glucose Level 100 94 88 Calcium Level 8.5 8.4 8.5 Phosphorus Level 3.1 3.4 3.8 Magnesium Level 2.0 1.9 2.0 Medications Medications Current Medications Dutasteride (Avodart) 0.5 mg DAILY PO Last administered on 07/25/17 07:40; Admin Dose 0.5 MG; Start 07/22/17 at 09:00 Gabapentin (Neurontin) 300 mg QHS PO Last administered on 07/24/17 21:19; Admin Dose 300 MG; Start 07/22/17 at 21:00 Warfarin Sodium (Coumadin) 7.5 mg DAILY@17 PO Last administered on 07/22/17 17:44; Admin Dose 7.5 MG; Start 07/22/17 at 17:00; Status Future Hold Salmeterol Xinafoate/ Fluticasone (Advair 250/50 Diskus) 1 inh BID INH Last administered on 07/25/17 09:33; Admin Dose 1 INH; Start 07/22/17 at 09:00 Atorvastatin Calcium (Lipitor) 10 mg QAM PO Last administered on 07/25/17 07: 41; Admin Dose 10 MG; Start 07/22/17 at 09:00 Acetaminophen (Tylenol Tab) 650 mg QID PRN PO PAIN LEVEL 1-5; Start 07/21/17 at 23:30 Ondansetron HCl (Zofran Inj) 4 mg Q6H PRN IV NAUSEA AND/OR VOMITING Last administered on 07/22/17 11:48; Admin Dose 4 MG; Start 07/21/17 at 23:30 Acetaminophen/ Hydrocodone Bitart ([place] (5/325)) 1 tab Q4H PRN PO PAIN LEVEL 4 -7 Last administered on 07/25/17 07:41; Admin Dose 1 TAB; Start 07/21/17 at 23:30 Morphine Sulfate (morphine) 2 mg Q4H PRN IV MODERATE PAIN LEVEL 4-6 Last administered on 07/25/17 10:08; Admin Dose 2 MG; Start 07/21/17 at 23:30 Famotidine (Pepcid Iv) 20 mg BID IV Last administered on 07/25/17 07:40; Admin Dose 20 MG; Start 07/22/17 at 09:00 Hydromorphone HCl 1 mg 1 mg Q3H PRN IV PAIN Last administered on 07/25/17 04: 28; Admin Dose 1 MG; Start 07/23/17 at 22:00 Alteplase, Recombinant 6 mg/ Sodium Chloride 60 ml @ 7.5 mls/hr Q8H IVPB Last administered on 07/25/17 07:41; Admin Dose 7.5 MLS/HR; Start 07/24/17 at 20: 00 Alteplase, Recombinant/ Sodium Chloride (Cathflo (Activase)/NS) 60 ml @ 7.5 mls /hr Q8H IVPB Last administered on 07/25/17 07:42; Admin Dose 7.5 MLS/HR; Start 07/24/17 at 20:00 AIMEE LANDEROS Jul 25, 2017 11:38
[2017-07-25 13:45] LABS: BASOPHILS % 0.4 % (0.0-2.0); EOSINOPHILS # 0.1 10^3/ul (0.0-0.5); EOSINOPHILS % 1.1 % (0.0-7.0); HEMATOCRIT 35.4 % (42.0-52.0); HEMOGLOBIN 10.9 g/dl (14.0-18.0); LYMPHOCYTES # 1.2 10^3/ul (0.8-2.9); LYMPHOCYTES % 10.9 % (15.0-51.0); MEAN CORPUSCULAR HEMOGLOBIN 26.3 pg (29.0-33.0); MEAN CORPUSCULAR HGB CONC 30.8 g/dl (32.0-37.0); MEAN CORPUSCULAR VOLUME 85.3 fl (82.0-101.0); MEAN PLATELET VOLUME 9.6 fl (7.4-10.4); NEUTROPHIL # 8.8 10^3/ul (1.6-7.5); PLATELET COUNT 217 10^3/UL (140-415); RED BLOOD COUNT 4.15 10^6/ul (4.70-6.10); RED CELL DISTRIBUTION WIDTH 14.4 % (11.5-14.5); WHITE BLOOD COUNT 11.3 10^3/ul (4.8-10.8)
[2017-07-25 13:56] LABS: INR 2.84; PROTIME 30.2 Sec (12.2-14.2); PT RATIO 2.4
[2017-07-25 14:01] LABS: CALCIUM 8.7 mg/dl (8.4-10.2); CREATININE 0.7 mg/dl (0.61-1.24); MAGNESIUM 2.1 mg/dl (1.7-2.5); PHOSPHORUS 3.9 mg/dl (2.5-4.9); POTASSIUM 4.1 mmol/L (3.5-5.1)
[2017-07-25 14:03] LABS: PARTIAL THROMBOPLASTIN TIME 71.4 Sec (25.0-35.0)
[2017-07-25] MEDS: SOD CHLORIDE 0.9% 1,000 ML IV SCH (15:53)
--- NOTE | 2017-07-25 16:34 | PN ---
Date/Time of Note Date/Time of Note DATE: 07/25/17 TIME: 16:25 Assessment/Plan VTE Prophylaxis VTE Prophylaxis Intervention: SCD's Lines/Catheters IV Catheter Type (from Nrsg): Central Line Central line still needed: Yes Urinary Cath still in place: Yes Reason Cath still needed: urinary retention Assessment/Plan Chief Complaint/Hosp Course Pt is currently on Heparin gtt and TPA, pending vascular procedure. Pt is awake , alert, pain is controlled. Assessment/Plan Right lower extremity pain, continue Bowman and morphine as needed for pain. 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 Mendiola is following in vascular surgery consultation. S/p vascular intervention. Dr. Short isfollowing in cardiology consultation Hypercoagulation, Dr Amaya is following in hematology consultation. Left leg DVT COPD Dyslipidemia Further recommendations based on clinical course. Plan of care discussed with Dr. Drake Problems: Exam/Review of Systems Vital Signs Vitals Vital Signs Date Time Temp Pulse Resp B/P Pulse Ox O2 Delivery O2 Flow Rate FiO2 07/25/17 15:45 99 20 116/61 96 Room Air 07/25/17 13:57 21 07/25/17 12:15 98.4 Intake and Output 07/24/17 07/24/17 07/25/17 15:00 23:00 07:00 Intake Total 655.0 ml 675.0 ml 144.3 ml Output Total 465 ml 385 ml 360 ml Balance 190.0 ml 290.0 ml -215.7 ml Exam Constitutional: alert, oriented Neck: supple Respiratory: normal air movement Cardiovascular: nl pulses Gastrointestinal: non-tender, soft Musculoskeletal: nl extremities to inspection Extremities: normal pulses Results Result Diagram: 07/25/17 1331 07/25/17 1331 Results 24 hrs Laboratory Tests Test 07/25/17 00:59 07/25/17 07:35 07/25/17 13:31 White Blood Count 11.4 H 10.4 11.3 H Red Blood Count 3.45 L 3.52 L 4.15 L Hemoglobin 9.6 L 9.9 L 10.9 L Hematocrit 29.1 L 30.1 L 35.4 L Mean Corpuscular Volume 84.3 85.5 85.3 Mean Corpuscular Hemoglobin 27.8 L 28.1 L 26.3 L Mean Corpuscular Hemoglobin Concent 33.0 32.9 30.8 L Red Cell Distribution Width 14.1 14.2 14.4 Platelet Count 195 209 217 Mean Platelet Volume 9.6 9.7 9.6 Neutrophils % 79.4 H 75.8 78.0 H Lymphocytes % 9.4 L 11.6 L 10.9 L Monocytes % 9.7 10.4 9.0 Eosinophils % 0.6 1.1 1.1 Basophils % 0.3 0.4 0.4 Nucleated Red Blood Cells % 0.0 0.0 0.0 Neutrophils # 9.0 H 7.9 H 8.8 H Lymphocytes # 1.1 1.2 1.2 Monocytes # 1.1 H 1.1 H 1.0 H Eosinophils # 0.1 0.1 0.1 Basophils # 0.0 0.0 0.0 Nucleated Red Blood Cells # 0.0 0.0 0.0 Prothrombin Time 34.5 H 33.4 H 30.2 H Prothrombin Time Ratio 2.7 2.6 2.4 INR International Normalized Ratio 3.36 3.22 2.84 Activated Partial Thromboplast Time 87.8 *H 78.0 *H 71.4 *H Fibrinogen 424.0 # 466.0 #H 556.0 #H Sodium Level 135 136 137 Potassium Level 4.1 4.3 4.1 Chloride Level 102 101 100 Carbon Dioxide Level 27 30 26 Anion Gap 10 9 15 Blood Urea Nitrogen 14 14 12 Creatinine 0.73 0.76 0.70 Glucose Level 94 88 82 Calcium Level 8.4 8.5 8.7 Phosphorus Level 3.4 3.8 3.9 Magnesium Level 1.9 2.0 2.1 Medications Medications Current Medications Dutasteride (Avodart) 0.5 mg DAILY PO Last administered on 07/25/17 07:40; Admin Dose 0.5 MG; Start 07/22/17 at 09:00 Gabapentin (Neurontin) 300 mg QHS PO Last administered on 07/24/17 21:19; Admin Dose 300 MG; Start 07/22/17 at 21:00 Warfarin Sodium (Coumadin) 7.5 mg DAILY@17 PO Last administered on 07/22/17 17:44; Admin Dose 7.5 MG; Start 07/22/17 at 17:00; Status Future Hold Salmeterol Xinafoate/ Fluticasone (Advair 250/50 Diskus) 1 inh BID INH Last administered on 07/25/17 09:33; Admin Dose 1 INH; Start 07/22/17 at 09:00 Atorvastatin Calcium (Lipitor) 10 mg QAM PO Last administered on 07/25/17 07: 41; Admin Dose 10 MG; Start 07/22/17 at 09:00 Acetaminophen (Tylenol Tab) 650 mg QID PRN PO PAIN LEVEL 1-5; Start 07/21/17 at 23:30 Ondansetron HCl (Zofran Inj) 4 mg Q6H PRN IV NAUSEA AND/OR VOMITING Last administered on 07/22/17 11:48; Admin Dose 4 MG; Start 07/21/17 at 23:30 Acetaminophen/ Hydrocodone Bitart ([place] (5/325)) 1 tab Q4H PRN PO PAIN LEVEL 4 -7 Last administered on 07/25/17 07:41; Admin Dose 1 TAB; Start 07/21/17 at 23:30 Morphine Sulfate (morphine) 2 mg Q4H PRN IV MODERATE PAIN LEVEL 4-6 Last administered on 07/25/17 10:08; Admin Dose 2 MG; Start 07/21/17 at 23:30 Famotidine (Pepcid Iv) 20 mg BID IV Last administered on 07/25/17 07:40; Admin Dose 20 MG; Start 07/22/17 at 09:00 Hydromorphone HCl 1 mg 1 mg Q3H PRN IV PAIN Last administered on 07/25/17 12: 46; Admin Dose 1 MG; Start 07/23/17 at 22:00 Alteplase, Recombinant 6 mg/ Sodium Chloride 60 ml @ 7.5 mls/hr Q8H IVPB Last administered on 07/25/17 13:26; Admin Dose 7.5 MLS/HR; Start 07/24/17 at 20: 00 Alteplase, Recombinant 6 mg/ Sodium Chloride 60 ml @ 7.5 mls/hr Q8H IVPB Last administered on 07/25/17 13:26; Admin Dose 7.5 MLS/HR; Start 07/24/17 at 20: 00 Sodium Chloride (NS) 1,000 ml @ 135 mls/hr Q7H25M IV Last administered on 10/ 20/17at 15:53; Admin Dose 135 MLS/HR; Start 07/25/17 at 16:00 LISETTE MEDINA Jul 25, 2017 16:34
--- NOTE | 2017-07-25 16:40 | RADRPT ---
Echocardiogram Report Patient Name: AIMEE SIMS Gender: Male Date: 1945 Study Date: 24-Jul-2017 Principal Clerk Typist: [facility] Location: [address] Ref. Physician: AIMEE SHORT Quality: Good Procedures: Transthoracic echocardiogram with complete 2D, M-Mode, and doppler examination. Indications: Pre-op. 2D/M Mode Doppler Measurement Value Normal Ranges Measurement Value Normal Ranges LVIDd 2D 4.9 3.5 - 5.6 cm PRISCILLA Vmax 2.7 cm2 LVIDs 2D 3.2 2.1 - 4.1 cm PRISCILLA VTI 2.7 cm2 LVPWd 2D 1.0 0.6 - 1.1 cm AV Peak Adarsh 1.3 m/sec IVSd 2D 1.1 0.6 - 1.1 cm AV Peak PG 6.7 mmHg AoR Diam 2D 3.2 2.0 - 3.7 cm LVOT Peak Adarsh 1.0 m/sec EDV 2D 112.6 cm3 LVOT Peak PG 4.4 mmHg ESV 2D 34.3 cm3 MV E Peak Adarsh 0.5 m/sec LA Dimen 2D 3.4 2.3 - 4.0 cm MV A Peak Adarsh 0.7 m/sec LVOT Diam 2.1 cm MV E/A 0.8 MV Decel Time 181 msec MV Decel [place] 3 MV E/A 0.8 TR Peak Adarsh 2.8 m/sec TR Peak PG 32.0 mmHg Findings Left Ventricle: Normal left ventricular systolic function. Normal left ventricular cavity size. Normal left ventricular wall thickness. Ejection fraction is visually estimated at 60 %. Abnormal Diastolic Function. Right Ventricle: Normal right ventricular size. Normal right ventricular systolic function. Left Atrium: The left atrium is normal in size. Right Atrium: The right atrium is normal in size. Mitral Valve: Mild mitral leaflet calcification. Mild mitral annular calcification. Trace mitral regurgitation. Aortic Valve: Normal appearance of the aortic valve. No significant aortic stenosis or insufficiency. Tricuspid Valve: Normal appearance of the tricuspid valve. Estimated peak PA systolic pressure 32 mmHg. There is mild tricuspid regurgitation. Pericardium: Normal pericardium with no significant pericardial effusion. Aorta: Normal aortic root. IVC: The IVC is not well visualized. Conclusions 1.Normal left ventricular systolic function. Normal left ventricular cavity size. Normal left ventricular wall thickness. Ejection fraction is visually estimated at 60 %. Abnormal Diastolic Function. 2.Normal right ventricular size. Normal right ventricular systolic function. 3.Mild mitral leaflet calcification. Mild mitral annular calcification. Trace mitral regurgitation. 4.Normal appearance of the tricuspid valve. Estimated peak PA systolic pressure 32 mmHg. There is mild tricuspid regurgitation. Electronically Signed By: Aimee Short 25-Jul-2017 16:39:10 -0700 Patient Name: AIMEE SIMS Study Date: 24-Jul-2017 [id number]
[2017-07-25] MEDS ORDERED: FENTAnyl 50 MCG/ML VIAL ONE (16:55)
--- NOTE | 2017-07-25 16:55 | RADRPT ---
Vent Rate: 102 bpm RR Interval: 0 msec [place] Interval: 176 msec QRS Duration: 82 msec QT Interval: 336 msec QTC Interval: 437 msec P-R-T [place]: 71 - 68 - 73 degrees Sinus tachycardia Otherwise normal ECG Electronically Signed By: Yrn Short [id number]
[2017-07-25] MEDS ORDERED: IODIXANOL LOCM 100 ML BTL ONE (17:26)
[2017-07-25 17:42] LABS: HOMOCYSTEINE - CARDIOVASCULAR 20.5 umol/L (<11.4)
[2017-07-25 18:57] LABS: INR 2.98; PROTIME 31.4 Sec (12.2-14.2); PT RATIO 2.5
[2017-07-25] MEDS ORDERED: HEPARIN 1000 UNITS/ML 10 ML INJ IV ONE (19:00)
[2017-07-25] MEDS ORDERED: HEPARIN 1000 UNITS/ML 10 ML INJ IV PRN ×3 (19:00)
--- NOTE | 2017-07-25 19:05 | OPR ---
DATE OF OPERATION: 07/24/2017 SURGEON: Ash Mendiola MD PREOPERATIVE DIAGNOSES: 1. 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 POSTOPERATIVE DIAGNOSES: 1. 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 ANESTHESIA: Local with moderate sedation. ESTIMATED BLOOD LOSS: Minimal. COMPLICATIONS: None. HEPARIN: 300 units an hour per right groin sheath and left groin sheath. CONTRAST: As recorded. TRANSFUSIONS: None. ACCESS: 1. Left common femoral vein with a 9 [place] sheath. 2. Right common femoral vein with 9 [place] sheath. SEDATION: Under physician supervision with moderate sedation, fentanyl and Versed were administered intravenously under continuous monitoring by the interventional team and attending physician. Puls e oximeter, heart rate, blood pressures were continuously monitored by the interventional surgeon. The physician time was a total of 15 minutes of [id number] sedation time with the patient. INDICATIONS: This is a 72-year-old gentleman who presented to us with history of bilateral lower ex tremity atherosclerosis with lower extremity disabling claudication and extensive history of bilater al lower extremity deep vein thrombosis with IVC filter placement. Patient has had a previous histo ry of developing acute on chronic DVT despite being on anticoagulation, suggestion of Coumadin failu re. Further, the patient had an IVC filter that was placed at outside hospital in [facility]. As o f recent, the patient had developed worsening lower extremity discomfort, right worse than left, and upon our evaluation yesterday, the patient had bilateral lower extremity venograms that identified having extensive deep vein thrombosis involving the common femoral vein, iliac veins extending all t he way to the IVC and into the IVC filter. At that time, patient underwent mechanical thrombectomy, intravascular ultrasound identified extensive clot and started on lysis therapy through the bilater al groin sheaths of 20 cm treatment distance. Therefore, risk and benefits and alternatives of saima ogram, balloon angioplasty and thrombectomy were discussed with the patient. The risks including bu t not limited to bleeding, thrombosis, embolization, myocardial infarction, , stroke, device ma lfunction, infection, nephrotoxicity, limb loss, nerve injury, intracranial hemorrhage, and the consuelo ent has agreed to proceed. PROCEDURES: 1. Lysis check via the left common femoral vein sheath. 2. Lysis check via the right common femoral vein sheath. 3. Venography of bilateral lower extremities. FINDINGS: The patient was identified to have improved venous drainage via bilateral iliac venous sy stem, more so on the right than on the left side. The patient still had extensive residual left tabatha ac vein thrombosis and inferior vena cava thrombosis. DESCRIPTION OF PROCEDURE: The patient was brought into the angio suite and positioned in supine pos ition on the fluoroscopic table. Sedation was administered without any complications. The patient' s bilateral groins were then shaved, prepped and draped in usual standard sterile fashion. Time out and appropriate site was marked and confirmed. Local anesthesia was then infiltrated in the region of the bilateral common femoral vein sheath. At this point, using Visipaque contrast, bilateral lo wer extremity venography was performed which identified right side with improved venous drainage and still has residual thrombus. The patient still had also thrombus in the inferior vena cava in the region of the IVC filter. In regards to this, same was repeated for the left lower extremity in which when we injected the Visipaque, we identified patient having still extensive residual throm bosis of the left iliac system. Therefore, decision was made to continue with our lysis therapy thr ough our bilateral lysis catheters for treatment distance of 20 cm. The patient tolerated this proc edure well and was taken back to the intensive care unit under close observation. The patient is to be receiving 0.75 mg of TPA via each sheath and 300 units of heparin through each sheath as well. Patient tolerated procedure well. PLAN: I will plan to bring the patient back tomorrow for lysis check and further evaluation if we r equire further thrombectomy or lysis treatment. Dictated By: ASH KNOWLES/FERNIE Conf#: [id number] DID#: [id number]
--- NOTE | 2017-07-25 19:25 | OPR ---
DATE OF OPERATION: 07/25/2017 VASCULAR SURGERY OPERATION SURGEON: Ash Mendiola MD PREOPERATIVE DIAGNOSIS: Bilateral lower extremity iliofemoral deep venous thrombosis and iliocaval deep venous thrombosis. POSTOPERATIVE DIAGNOSIS: Bilateral lower extremity iliofemoral deep venous thrombosis and iliocaval deep venous thrombosis. ANESTHESIA: Local with moderate sedation. ESTIMATED BLOOD LOSS: Minimal. COMPLICATIONS: None. HEPARIN: None. CONTRAST: As recorded. TRANSFUSIONS: None. ACCESS: 1. Left common femoral vein 9 [place] sheath. 2. Right common femoral vein 9 [place] sheath. CLOSURE: Manual compression of the right lower extremity and FemoStop to the left groin. SEDATION: Under physician supervision with moderate sedation, fentanyl and Versed were administered intravenously under continuous monitoring by the interventional team and attending physician. Puls e oximeter, heart rate and blood pressures were continuously monitored by the interventional surgeon . The physician's time was a total of 20 minutes of [id number] sedation time with the patient. INDICATIONS: This is a 72-year-old gentleman who had presented to us about 72 hours ago in which he underwent lysis therapy secondary to having extensive iliocaval thrombosis in which he was started on heparin drip and tPA, lysis catheters via the bilateral sheath. Patient has been discussed in re gards to alternatives, risk and benefits for obtaining angiogram, possible thrombectomy and thrombol ysis. Risks included but are not limited to bleeding, thrombosis, embolization, myocardial infarcti on, , stroke, device malfunction, infection, nephrotoxicity, limb loss, nerve injury and intrac ranial hemorrhage. The patient has agreed to proceed. PROCEDURES: 1. Left common femoral vein lysis check. 2. Right lower extremity lysis check. 3. Left lower extremity lysis check. 4. Bilateral lower extremity venography. 5. Removal of the bilateral lysis catheters. FINDINGS: The patient had resolution of the right common femoral vein, external iliac vein, common iliac vein and IVC thrombosis. The patient still had some residual thrombus that seemed to be located in the region of the left ext ernal iliac vein. The common femoral vein had resolution of the thrombus and the left common femora l vein had resolution. DESCRIPTION OF PROCEDURE: The patient was brought into the angio suite where he was positioned in s upine position on the fluoroscopic table. Sedation was administered without any complications. Gage ateral groins were then shaved, prepped and draped in the usual standard sterile fashion. Time out and appropriate sites were marked and confirmed. Local anesthesia was then infiltrated in the regio n of the bilateral common femoral veins. At this point, it was identified patient having some infil tration via the left common femoral sheath in which some concern was involving a previous Angio-Seal closure device that was used in the left common femoral artery. However, this seems to be, per james heredia's reporting, that developed over the past 2 to 3 hours and seems to be soft upon palpation exam ination. There was concern the patient's sheath may have a dent or may have been kinked not allowin g the tPA and the heparin infiltrating in that region; therefore, venography was performed with the bilateral sheaths and findings are noted above. It was identified the patient had essentially near full resolution of the right iliac venous system with no residual thrombus. However, on the left th e patient did have still some residual thrombus in the left external iliac vein. However, decision was made to remove the lysis catheter as the patient did have some infiltration that had become both ersome to the patient in the left groin sheath location. At this point, the lysis catheter was noa tracy from the right groin catheter without any complications. Right groin catheter was removed and m anual compression was applied. Pressure dressing was applied in that segment. On the left groin sh eath, we went ahead and removed the lysis catheter without any complications. The groin sheath was also removed and via ultrasound, we interrogated the area of the Angio-Seal with duplex and no pseud oaneurysm was identified. Further there was no hematoma identified either, seemed to be more of alirio ma that had developed secondary to infiltration from the sheath. Decision was made to remove all ca theters, wires and sheaths and apply FemoStop to that segment in order to make sure that there was n o concern of a venous or arterial pseudoaneurysm developing. At this point, the patient tolerated t his aspect of the procedure well and was taken to the critical care unit in stable condition. We will have the patient have the FemoStop for a few hours and we will reexamine neurovascular check s and evaluate the lower extremity examination. Dictated By: ASH KNOWLES/FERNIE Conf#: [id number] DID#: [id number]
[2017-07-25 19:34] LABS: PARTIAL THROMBOPLASTIN TIME 75.7 Sec (25.0-35.0)
[2017-07-25] MEDS: GABAPENTIN 300 MG CAP PO SCH (21:58)
[2017-07-25] MEDS: ZOLPIDEM 5 MG TAB PO PRN (21:59)
[2017-07-26] VITALS (24 sets, daily range): BP systolic 87–125; BP diastolic 54–93; PULSE 92–116; RESP 16–35
[2017-07-26] MEDS: ALBUTEROL/IPRATROPIUM (NEB) 3 ML AMP HHN SCH ×6 (00:06→20:15)
[2017-07-26] MEDS: SOD CHLORIDE 0.9% 1,000 ML IV SCH ×3 (01:17→14:16)
[2017-07-26] MEDS: HYDROmorphONE 1 MG/ML SYG IV PRN ×3 (04:11→20:32)
[2017-07-26] MEDS: HEPARIN 25000 UNITS/250 ML 250 ML IV SCH (06:07)
[2017-07-26 06:39] LABS: BASOPHILS % 0.2 % (0.0-2.0); EOSINOPHILS # 0.2 10^3/ul (0.0-0.5); EOSINOPHILS % 1.4 % (0.0-7.0); HEMATOCRIT 28.3 % (42.0-52.0); LYMPHOCYTES # 1.1 10^3/ul (0.8-2.9); LYMPHOCYTES % 10.3 % (15.0-51.0); MEAN CORPUSCULAR HEMOGLOBIN 26.7 pg (29.0-33.0); MEAN CORPUSCULAR HGB CONC 31.8 g/dl (32.0-37.0); MEAN PLATELET VOLUME 9.5 fl (7.4-10.4); MONOCYTE # 0.9 10^3/ul (0.3-0.9); MONOCYTES % 9.1 % (0.0-11.0); NEUTROPHIL # 8.1 10^3/ul (1.6-7.5); NEUTROPHILS % 78.4 % (39.0-77.0); PLATELET COUNT 272 10^3/UL (140-415); RED BLOOD COUNT 3.37 10^6/ul (4.70-6.10); RED CELL DISTRIBUTION WIDTH 14.4 % (11.5-14.5); WHITE BLOOD COUNT 10.4 10^3/ul (4.8-10.8)
[2017-07-26 07:12] LABS: INR 2.64; PROTIME 28.5 Sec (12.2-14.2); PT RATIO 2.2
[2017-07-26 07:20] LABS: PARTIAL THROMBOPLASTIN TIME 93.9 Sec (25.0-35.0)
[2017-07-26 07:38] LABS: CALCIUM 8.6 mg/dl (8.4-10.2); CREATININE 0.6 mg/dl (0.61-1.24); POTASSIUM 4.5 mmol/L (3.5-5.1)
[2017-07-26] MEDS: FAMOTIDINE 20 MG INJ IV SCH (08:03)
[2017-07-26] MEDS: HYDROCODONE/APAP (5/325) TAB PO PRN ×3 (08:04→23:06)
[2017-07-26] MEDS: ATORVASTATIN 10 MG TAB PO SCH (08:04)
[2017-07-26] MEDS: DUTASTERIDE 0.5 MG CAP PO SCH (08:04)
[2017-07-26] MEDS: SALMETEROL/FLUTICASONE 250/50 INHA INH SCH ×2 (08:05→21:28)
--- NOTE | 2017-07-26 10:45 | PN ---
Date/Time of Note Date/Time of Note DATE: 07/26/17 TIME: 10:41 Assessment/Plan VTE Prophylaxis VTE Prophylaxis Intervention: heparin Lines/Catheters IV Catheter Type (from [facility]): Peripheral IV Urinary Cath still in place: Yes Assessment/Plan Assessment/Plan -Right lower extremity pain, continue Batchelor and morphine as needed for pain. 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 Mendiola is following in vascular surgery consultation. S/p vascular intervention. -Dr. Short isfollowing in cardiology consultation - On Heparin gtt - monitor for s/s of bleeding -Hypercoagulation, Dr Amaya is following in hematology consultation. -Left leg DVT - On Heparin gtt - monitor for s/s of bleeding - COPD - Dyslipidemia - Former Smoker- smoking cessation reinforced - Anemia- monitor CBC Further recommendations based on clinical course. Plan of care discussed with Dr. Drake - Exam/Review of Systems Vital Signs Vitals Vital Signs Date Time Temp Pulse Resp B/P Pulse Ox O2 Delivery O2 Flow Rate FiO2 07/26/17 08:33 94 21 07/26/17 08:00 97 07/26/17 08:00 98.4 18 119/75 Room Air Intake and Output 07/25/17 07/25/17 07/26/17 15:00 23:00 07:00 Intake Total 171.0 ml 1132.0 ml 945 ml Output Total 505 ml 505 ml 465 ml Balance -334.0 ml 627.0 ml 480 ml Exam Constitutional: alert, oriented, well developed Respiratory: clear to auscultation, diminished breath sounds Cardiovascular: nl pulses, other (s1s2) Gastrointestinal: non-tender, soft Extremities: edema Neurological: nl mental status Results Result Diagram: 07/26/1718 07/26/1718 Results 24 hrs Laboratory Tests Test 07/25/17 13:31 07/25/17 18:13 07/25/17 23:53 07/26/17 05:42 White Blood Count 11.3 H Red Blood Count 4.15 L Hemoglobin 10.9 L Hematocrit 35.4 L Mean Corpuscular Volume 85.3 Mean Corpuscular Hemoglobin 26.3 L Mean Corpuscular Hemoglobin Concent 30.8 L Red Cell Distribution Width 14.4 Platelet Count 217 Mean Platelet Volume 9.6 Neutrophils % 78.0 H Lymphocytes % 10.9 L Monocytes % 9.0 Eosinophils % 1.1 Basophils % 0.4 Nucleated Red Blood Cells % 0.0 Neutrophils # 8.8 H Lymphocytes # 1.2 Monocytes # 1.0 H Eosinophils # 0.1 Basophils # 0.0 Nucleated Red Blood Cells # 0.0 Prothrombin Time 30.2 H 31.4 H Prothrombin Time Ratio 2.4 2.5 INR International Normalized Ratio 2.84 2.98 Activated Partial Thromboplast Time 71.4 *H 75.7 *H 92.6 *H Fibrinogen 556.0 #H Sodium Level 137 Potassium Level 4.1 Chloride Level 100 Carbon Dioxide Level 26 Anion Gap 15 Blood Urea Nitrogen 12 Creatinine 0.70 Glucose Level 82 Calcium Level 8.7 Phosphorus Level 3.9 Magnesium Level 2.1 Lab Scanned Report BLOOD TRANSFUSION Test 07/26/17 06:18 White Blood Count 10.4 Red Blood Count 3.37 L Hemoglobin 9.0 L Hematocrit 28.3 #L Mean Corpuscular Volume 84.0 Mean Corpuscular Hemoglobin 26.7 L Mean Corpuscular Hemoglobin Concent 31.8 L Red Cell Distribution Width 14.4 Platelet Count 272 # Mean Platelet Volume 9.5 Neutrophils % 78.4 H Lymphocytes % 10.3 L Monocytes % 9.1 Eosinophils % 1.4 Basophils % 0.2 Nucleated Red Blood Cells % 0.0 Neutrophils # 8.1 H Lymphocytes # 1.1 Monocytes # 0.9 Eosinophils # 0.2 Basophils # 0.0 Nucleated Red Blood Cells # 0.0 Prothrombin Time 28.5 H Prothrombin Time Ratio 2.2 INR International Normalized Ratio 2.64 Activated Partial Thromboplast Time 93.9 *H Sodium Level 137 Potassium Level 4.5 Chloride Level 104 Carbon Dioxide Level 24 Anion Gap 14 Blood Urea Nitrogen 14 Creatinine 0.60 L Glucose Level 89 Calcium Level 8.6 Medications Medications Current Medications Dutasteride (Avodart) 0.5 mg DAILY PO Last administered on 07/26/17 08:04; Admin Dose 0.5 MG; Start 07/22/17 at 09:00 Gabapentin (Neurontin) 300 mg QHS PO Last administered on 07/25/17 21:58; Admin Dose 300 MG; Start 07/22/17 at 21:00 Warfarin Sodium (Coumadin) 7.5 mg DAILY@17 PO Last administered on 07/22/17 17:44; Admin Dose 7.5 MG; Start 07/22/17 at 17:00; Status Future Hold Salmeterol Xinafoate/ Fluticasone (Advair 250/50 Diskus) 1 inh BID INH Last administered on 07/26/17 08:05; Admin Dose 1 INH; Start 07/22/17 at 09:00 Atorvastatin Calcium (Lipitor) 10 mg QAM PO Last administered on 07/26/17 08: 04; Admin Dose 10 MG; Start 07/22/17 at 09:00 Acetaminophen (Tylenol Tab) 650 mg QID PRN PO PAIN LEVEL 1-5; Start 07/21/17 at 23:30 Ondansetron HCl (Zofran Inj) 4 mg Q6H PRN IV NAUSEA AND/OR VOMITING Last administered on 07/22/17 11:48; Admin Dose 4 MG; Start 07/21/17 at 23:30 Acetaminophen/ Hydrocodone Bitart ([place] (5/325)) 1 tab Q4H PRN PO PAIN LEVEL 4 -7 Last administered on 07/26/17 08:04; Admin Dose 1 TAB; Start 07/21/17 at 23:30 Famotidine (Pepcid Iv) 20 mg BID IV Last administered on 07/26/17 08:03; Admin Dose 20 MG; Start 07/22/17 at 09:00 Hydromorphone HCl 1 mg 1 mg Q3H PRN IV PAIN Last administered on 07/26/17 04: 11; Admin Dose 1 MG; Start 07/23/17 at 22:00 Sodium Chloride (NS) 1,000 ml @ 135 mls/hr Q7H25M IV Last administered on 08:04; Admin Dose 135 MLS/HR; Start 07/25/17 at 16:00 JOSIE CHENG Jul 26, 2017 10:45
--- NOTE | 2017-07-26 11:40 | PN ---
Date/Time of Note Date/Time of Note DATE: 07/26/17 TIME: 11:37 Assessment/Plan VTE Prophylaxis VTE Prophylaxis Intervention: heparin Lines/Catheters IV [facility]from [facility] Peripheral IV Urinary Cath still in place: Yes Reason Cath still needed: other (indicate) (Monitor urine output) Assessment/Plan Chief Complaint/Hosp Course Patient was complaining of testicular pain prior to the surgery He underwent: AORTOILIAC ANGIOGRAM AND RLE ANGIOGRAM FEMORAL-POPLITEAL ARTERY STENT GRAFT PLACEMENT WITH VIABAHN 5H293gq,8X50mm BILATERAL LOWER EXTREMITY VENOGRAMS BILATERAL COMMON ILIAC, EXTERNAL ILIAC, COMMON FEMORAL VEIN THROMBECTOMY IVC THROMBECTOMY LYSIS CATHETER PLACEMENT INTRAVASCULAR U/S OF BILATERAL CIV, EIV, CFV AND IVC He denies having any testicular pain today, has a Galvan catheter that is draining clear urine Urologically just observe him Problems: Subjective 24 Hr Interval Summary Constitutional: no complaints Gastrointestinal: no complaints Genitourinary: other (No more testicular pain, Galvan catheter draining well) Exam/Review of Systems Vital Signs Vitals Vital Signs Date Time Temp Pulse Resp B/P Pulse Ox O2 Delivery O2 Flow Rate FiO2 07/26/17 08:33 94 21 07/26/17 08:00 97 07/26/17 08:00 98.4 18 119/75 Room Air Intake and Output 07/25/17 07/25/17 07/26/17 15:00 23:00 07:00 Intake Total 171.0 ml 1132.0 ml 945 ml Output Total 505 ml 505 ml 465 ml Balance -334.0 ml 627.0 ml 480 ml Exam Constitutional: alert Psych: no complaints Neck: non-tender Respiratory: normal air movement Genitourinary - Male: other (No testicular pain), No CVA tenderness Results Result Diagram: 07/26/1718 07/26/17 0618 Results 24 hrs Laboratory Tests Test 07/25/17 13:31 07/25/17 18:13 07/25/17 23:53 07/26/17 05:42 White Blood Count 11.3 H Red Blood Count 4.15 L Hemoglobin 10.9 L Hematocrit 35.4 L Mean Corpuscular Volume 85.3 Mean Corpuscular Hemoglobin 26.3 L Mean Corpuscular Hemoglobin Concent 30.8 L Red Cell Distribution Width 14.4 Platelet Count 217 Mean Platelet Volume 9.6 Neutrophils % 78.0 H Lymphocytes % 10.9 L Monocytes % 9.0 Eosinophils % 1.1 Basophils % 0.4 Nucleated Red Blood Cells % 0.0 Neutrophils # 8.8 H Lymphocytes # 1.2 Monocytes # 1.0 H Eosinophils # 0.1 Basophils # 0.0 Nucleated Red Blood Cells # 0.0 Prothrombin Time 30.2 H 31.4 H Prothrombin Time Ratio 2.4 2.5 INR International Normalized Ratio 2.84 2.98 Activated Partial Thromboplast Time 71.4 *H 75.7 *H 92.6 *H Fibrinogen 556.0 #H Sodium Level 137 Potassium Level 4.1 Chloride Level 100 Carbon Dioxide Level 26 Anion Gap 15 Blood Urea Nitrogen 12 Creatinine 0.70 Glucose Level 82 Calcium Level 8.7 Phosphorus Level 3.9 Magnesium Level 2.1 Lab Scanned Report BLOOD TRANSFUSION Test 07/26/17 06:18 White Blood Count 10.4 Red Blood Count 3.37 L Hemoglobin 9.0 L Hematocrit 28.3 #L Mean Corpuscular Volume 84.0 Mean Corpuscular Hemoglobin 26.7 L Mean Corpuscular Hemoglobin Concent 31.8 L Red Cell Distribution Width 14.4 Platelet Count 272 # Mean Platelet Volume 9.5 Neutrophils % 78.4 H Lymphocytes % 10.3 L Monocytes % 9.1 Eosinophils % 1.4 Basophils % 0.2 Nucleated Red Blood Cells % 0.0 Neutrophils # 8.1 H Lymphocytes # 1.1 Monocytes # 0.9 Eosinophils # 0.2 Basophils # 0.0 Nucleated Red Blood Cells # 0.0 Prothrombin Time 28.5 H Prothrombin Time Ratio 2.2 INR International Normalized Ratio 2.64 Activated Partial Thromboplast Time 93.9 *H Sodium Level 137 Potassium Level 4.5 Chloride Level 104 Carbon Dioxide Level 24 Anion Gap 14 Blood Urea Nitrogen 14 Creatinine 0.60 L Glucose Level 89 Calcium Level 8.6 Medications Medications Current Medications Dutasteride (Avodart) 0.5 mg DAILY PO Last administered on 07/26/17 08:04; Admin Dose 0.5 MG; Start 07/22/17 at 09:00 Gabapentin (Neurontin) 300 mg QHS PO Last administered on 07/25/17 21:58; Admin Dose 300 MG; Start 07/22/17 at 21:00 Warfarin Sodium (Coumadin) 7.5 mg DAILY@17 PO Last administered on 07/22/17 17:44; Admin Dose 7.5 MG; Start 07/22/17 at 17:00; Status Future Hold Salmeterol Xinafoate/ Fluticasone (Advair 250/50 Diskus) 1 inh BID INH Last administered on 07/26/17 08:05; Admin Dose 1 INH; Start 07/22/17 at 09:00 Atorvastatin Calcium (Lipitor) 10 mg QAM PO Last administered on 07/26/17 08: 04; Admin Dose 10 MG; Start 07/22/17 at 09:00 Acetaminophen (Tylenol Tab) 650 mg QID PRN PO PAIN LEVEL 1-5; Start 07/21/17 at 23:30 Ondansetron HCl (Zofran Inj) 4 mg Q6H PRN IV NAUSEA AND/OR VOMITING Last administered on 07/22/17 11:48; Admin Dose 4 MG; Start 07/21/17 at 23:30 Acetaminophen/ Hydrocodone Bitart ([place] (5/325)) 1 tab Q4H PRN PO PAIN LEVEL 4 -7 Last administered on 07/26/17 08:04; Admin Dose 1 TAB; Start 07/21/17 at 23:30 Famotidine (Pepcid Iv) 20 mg BID IV Last administered on 07/26/17 08:03; Admin Dose 20 MG; Start 07/22/17 at 09:00 Hydromorphone HCl 1 mg 1 mg Q3H PRN IV PAIN Last administered on 07/26/17 04: 11; Admin Dose 1 MG; Start 07/23/17 at 22:00 Sodium Chloride (NS) 1,000 ml @ 135 mls/hr Q7H25M IV Last administered on 08:04; Admin Dose 135 MLS/HR; Start 07/25/17 at 16:00 STACIA INGRAM MD Jul 26, 2017 11:40
--- NOTE | 2017-07-26 13:53 | CONS ---
Date/Time of Note Date/Time of Note DATE: 07/26/17 TIME: 13:52 Assessment/Plan Assessment/Plan Chief Complaint/Hosp Course IMPRESSION: 1. Preoperative evaluation prior to possible surgical vascular intervention.- negative trop x3 2. Hypertension. 3. Dyslipidemia. 4. Abnormal electrocardiogram with nonspecific ST and T-wave abnormalities. 5. Left lower extremity deep venous thrombosis status post inferior vena cava filter, on Coumadin. post-op s/p placement of perfusion/lysis catheter ninto LE bilateral 6. Chronic obstructive pulmonary disease. 7. 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 Recc: -Remain in ICU on tele -Follow perfusion catheter/lysis on TPA/heparin and follow for bleedinig complications -Continue statin -ongoing heme eval with recc for initiation of Eliquis once procedures completed and plavix. -Follow volume status clsoely Problems: Consultation Date/Type/Reason Admit Date/Time Jul 21, 2017 at 23:03 Initial Consult Date 07/23/17 Type of Consultation: cardiology Reason for Consultation pre-op Referring Provider: MATT MCCULLOUGH MD Exam/Review of Systems Vital Signs Vitals Vital Signs Date Time Temp Pulse Resp B/P Pulse Ox O2 Delivery O2 Flow Rate FiO2 07/26/17 13:07 100 17 97 21 07/26/17 08:00 98.4 119/75 Room Air Intake and Output 07/25/17 07/25/17 07/26/17 15:00 23:00 07:00 Intake Total 171.0 ml 1132.0 ml 945 ml Output Total 505 ml 505 ml 465 ml Balance -334.0 ml 627.0 ml 480 ml Exam Review of Systems: CONSTITUTIONAL: No fevers, chills. PULMONARY: No sob CARDIOVASCULAR: No chest pain/palpitations GASTROINTESTINAL: No nausea/vomiting. GENITOURINARY: No hematuria/dysuria. MUSCULOSKELETAL: No myagias/arthalgias. PSYCHIATRIC: The patient denies depression. NEUROLOGIC: No weakness Constitutional: alert Psych: no complaints Head: normocephalic ENMT: mucosa pink and moist Neck: jvd (9 cm water), supple Respiratory: diminished breath sounds (at bases/B) Cardiovascular: regular rate and rhythm Gastrointestinal: non-tender, soft Musculoskeletal: muscle tone (normal) Extremities: pitting pedal edema (R>L) Neurological: other (No focal deficits) Results Result Diagram: 07/26/17 0618 07/26/17 0618 Results 24 hrs Laboratory Tests Test 07/25/17 18:13 07/25/17 23:53 07/26/17 05:42 07/26/17 06:18 Prothrombin Time 31.4 H 28.5 H Prothrombin Time Ratio 2.5 2.2 INR International Normalized Ratio 2.98 2.64 Activated Partial Thromboplast Time 75.7 *H 92.6 *H 93.9 *H Lab Scanned Report BLOOD TRANSFUSION White Blood Count 10.4 Red Blood Count 3.37 L Hemoglobin 9.0 L Hematocrit 28.3 #L Mean Corpuscular Volume 84.0 Mean Corpuscular Hemoglobin 26.7 L Mean Corpuscular Hemoglobin Concent 31.8 L Red Cell Distribution Width 14.4 Platelet Count 272 # Mean Platelet Volume 9.5 Neutrophils % 78.4 H Lymphocytes % 10.3 L Monocytes % 9.1 Eosinophils % 1.4 Basophils % 0.2 Nucleated Red Blood Cells % 0.0 Neutrophils # 8.1 H Lymphocytes # 1.1 Monocytes # 0.9 Eosinophils # 0.2 Basophils # 0.0 Nucleated Red Blood Cells # 0.0 Sodium Level 137 Potassium Level 4.5 Chloride Level 104 Carbon Dioxide Level 24 Anion Gap 14 Blood Urea Nitrogen 14 Creatinine 0.60 L Glucose Level 89 Calcium Level 8.6 Medications Medications Current Medications Dutasteride (Avodart) 0.5 mg DAILY PO Last administered on 07/26/17 08:04; Admin Dose 0.5 MG; Start 07/22/17 at 09:00 Gabapentin (Neurontin) 300 mg QHS PO Last administered on 07/25/17 21:58; Admin Dose 300 MG; Start 07/22/17 at 21:00 Warfarin Sodium (Coumadin) 7.5 mg DAILY@17 PO Last administered on 07/22/17 17:44; Admin Dose 7.5 MG; Start 07/22/17 at 17:00; Status Future Hold Salmeterol Xinafoate/ Fluticasone (Advair 250/50 Diskus) 1 inh BID INH Last administered on 07/26/17 08:05; Admin Dose 1 INH; Start 07/22/17 at 09:00 Atorvastatin Calcium (Lipitor) 10 mg QAM PO Last administered on 07/26/17 08: 04; Admin Dose 10 MG; Start 07/22/17 at 09:00 Acetaminophen (Tylenol Tab) 650 mg QID PRN PO PAIN LEVEL 1-5; Start 07/21/17 at 23:30 Ondansetron HCl (Zofran Inj) 4 mg Q6H PRN IV NAUSEA AND/OR VOMITING Last administered on 07/22/17 11:48; Admin Dose 4 MG; Start 07/21/17 at 23:30 Acetaminophen/ Hydrocodone Bitart ([place] (5/325)) 1 tab Q4H PRN PO PAIN LEVEL 4 -7 Last administered on 07/26/17 08:04; Admin Dose 1 TAB; Start 07/21/17 at 23:30 Famotidine (Pepcid Iv) 20 mg BID IV Last administered on 07/26/17 08:03; Admin Dose 20 MG; Start 07/22/17 at 09:00 Hydromorphone HCl 1 mg 1 mg Q3H PRN IV PAIN Last administered on 07/26/17 04: 11; Admin Dose 1 MG; Start 07/23/17 at 22:00 Sodium Chloride (NS) 1,000 ml @ 135 mls/hr Q7H25M IV Last administered on 08:04; Admin Dose 135 MLS/HR; Start 07/25/17 at 16:00 AIMEE LANDEROS Jul 26, 2017 13:53
--- NOTE | 2017-07-26 14:05 | PN ---
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 -S/P Right fem-pop Stent grafting and Aortoiliac angiogram 07/23/2017 -Bilateral lower extremity acute venous thrombosis involving CFV iliac veins and IVC: It seems the patient may have failed with coumadin therapy as hes had previous acute onsets of venous thrombosis with therapeutic INR's 07/23/2017: -S/P Bilateral lower extremity venogram -S/P Bilateral CI, EI, CF veins and caval mechanical thrombectomy -S/P Thrombolysis Catheters 07/24/2017: -S/P Bilateral lysis check - 07/24 -S/P Bilateral Lysis check - 07/25 -Appreciate hematology Evaluation -Will need to obtain CT chest to rule out any underlying tumors (cause of hypercoagulable state) -Continue neurovascular checks -Continue Heparin gtt per protocol -D/C Galvan -Heplock IVF hydration with good PO -Will eventually transition to PO anticoagulation -Optimize vascular status (BP meds, diet, nutrition, exercise, sugar control, antiplatelets). -Discussed findings, plan and management with the patient and he understands. -Discussed limb salvage and realistic outcomes of our current findings and the possibility of limb loss is there. Patient fully understands and would like to have everything done in order to provide adequate limb salvage for him. -Appreciate cardiology evaluation for possible surgical revascularization. -Thank you for allowing us to partake in the care of your patient. Please call with any questions. Problems: Subjective 24 Hr Interval Summary removed femstop from left groin for infiltration Exam/Review of Systems Vital Signs Vitals Vital Signs Date Time Temp Pulse Resp B/P Pulse Ox O2 Delivery O2 Flow Rate FiO2 07/26/17 13:07 100 17 97 21 07/26/17 08:00 98.4 119/75 Room Air Intake and Output 07/25/17 07/25/17 07/26/17 15:00 23:00 07:00 Intake Total 171.0 ml 1132.0 ml 945 ml Output Total 505 ml 505 ml 465 ml Balance -334.0 ml 627.0 ml 480 ml Exam Free Text/Dictation GENERAL: Alert and oriented x3, PULMONARY: Clear to auscultation bilaterally CARDIOVASCULAR: S1, S2 present ABDOMEN: Soft, nontender, nondistended. Bowel sounds positive. EXTREMITIES: -Right lower extremity palpable femoral pulse, palpable pedal pulse. Motor and sensory intact, Capillary refill 3,, edema 1+ -Left lower extremity, palpable femoral pulse, palpable pedal pulse. Motor and sensory intact. Capillary refill 3, edema 1+ -Bilateral groin soft with dressing intact Results Result Diagram: 07/26/1718 07/26/17 0618 MATT MCCULLOUGH MD Jul 26, 2017 14:05
[2017-07-26] MEDS: FAMOTIDINE 20 MG TAB PO SCH (20:31)
[2017-07-26] MEDS: GABAPENTIN 300 MG CAP PO SCH (20:31)
[2017-07-26] MEDS: ONDANSETRON 4 MG INJ IV PRN (21:10)
[2017-07-26] MEDS: ZOLPIDEM 5 MG TAB PO PRN (23:06)
[2017-07-27] VITALS (18 sets, daily range): BP systolic 96–132; BP diastolic 62–76; PULSE 90–110; RESP 14–32
[2017-07-27] MEDS: ALBUTEROL/IPRATROPIUM (NEB) 3 ML AMP HHN SCH ×7 (00:02→20:05)
[2017-07-27] MEDS: SOD CHLORIDE 0.9% 1,000 ML IV SCH ×4 (00:11→16:22)
[2017-07-27 06:07] LABS: BASOPHILS % 0.3 % (0.0-2.0); EOSINOPHILS # 0.5 10^3/ul (0.0-0.5); EOSINOPHILS % 5.4 % (0.0-7.0); HEMATOCRIT 28.5 % (42.0-52.0); HEMOGLOBIN 8.8 g/dl (14.0-18.0); LYMPHOCYTES # 1.1 10^3/ul (0.8-2.9); LYMPHOCYTES % 11.5 % (15.0-51.0); MEAN CORPUSCULAR HEMOGLOBIN 26.3 pg (29.0-33.0); MEAN CORPUSCULAR HGB CONC 30.9 g/dl (32.0-37.0); MEAN CORPUSCULAR VOLUME 85.1 fl (82.0-101.0); MEAN PLATELET VOLUME 9.5 fl (7.4-10.4); MONOCYTE # 0.8 10^3/ul (0.3-0.9); MONOCYTES % 7.8 % (0.0-11.0); NEUTROPHIL # 7.4 10^3/ul (1.6-7.5); NEUTROPHILS % 74.6 % (39.0-77.0); PLATELET COUNT 358 10^3/UL (140-415); RED BLOOD COUNT 3.35 10^6/ul (4.70-6.10); RED CELL DISTRIBUTION WIDTH 14.5 % (11.5-14.5); WHITE BLOOD COUNT 9.9 10^3/ul (4.8-10.8)
[2017-07-27 06:18] LABS: CALCIUM 8.7 mg/dl (8.4-10.2); CREATININE 0.69 mg/dl (0.61-1.24)
[2017-07-27] MEDS: ATORVASTATIN 10 MG TAB PO SCH (08:20)
[2017-07-27] MEDS: DUTASTERIDE 0.5 MG CAP PO SCH (08:20)
[2017-07-27] MEDS: FAMOTIDINE 20 MG TAB PO SCH ×2 (08:21→20:52)
[2017-07-27] MEDS: SALMETEROL/FLUTICASONE 250/50 INHA INH SCH ×2 (08:21→20:54)
[2017-07-27] MEDS: HEPARIN 25000 UNITS/250 ML 250 ML IV SCH (09:57)
[2017-07-27 12:21] LABS: B2 GLYCOPROTEIN I AB (IGA) <9 SAU (< OR = 20); B2 GLYCOPROTEIN I AB (IGG) <9 SGU (< OR = 20); B2 GLYCOPROTEIN I AB (IGM) <9 SMU (< OR = 20)
--- NOTE | 2017-07-27 12:37 | PN ---
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 -S/P Right fem-pop Stent grafting and Aortoiliac angiogram 07/23/2017 -Bilateral lower extremity acute venous thrombosis involving CFV, iliac veins and IVC: It seems the patient may have failed with Coumadin therapy as he had previous acute onsets of venous thrombosis with therapeutic INR's 07/23/2017: -S/P Bilateral lower extremity venogram -S/P Bilateral CI, EI, CF veins and caval mechanical thrombectomy -S/P Thrombolysis Catheters 07/24/2017: -S/P Bilateral lysis check 07/25/2017 -S/P Bilateral Lysis check -Appreciate hematology Evaluation -Will need to obtain CT chest to rule out any underlying tumors (cause of hypercoagulable state) -Continue neurovascular checks Q4 -Start Eliquis 10mg PO BID and discontinue Heparin gtt two hours post first dose being given -Heplock IVF hydration with good PO -PT/OT full weight bearing with assistance -Heplock IVF's if good PO intake -Optimize vascular status (BP meds, diet, nutrition, exercise, sugar control, antiplatelets). -Discussed findings, plan and management with the patient and he understands. -Discussed limb salvage and realistic outcomes of our current findings and the possibility of limb loss is there. Patient fully understands and would like to have everything done in order to provide adequate limb salvage for him. -Appreciate cardiology evaluation for possible surgical revascularization. -Thank you for allowing us to partake in the care of your patient. Please call with any questions. Problems: Subjective 24 Hr Interval Summary no new vascular events overnight Exam/Review of Systems Vital Signs Vitals Vital Signs Date Time Temp Pulse Resp B/P Pulse Ox O2 Delivery O2 Flow Rate FiO2 07/27/17 12:04 104 07/27/17 12:02 98.8 17 124/65 99 07/27/17 10:48 21 07/27/17 10:00 Room Air Intake and Output 07/26/17 07/26/1707/27/17 15:00 23:00 07:00 Intake Total 1884 ml 1226 ml 1009 ml Output Total 675 ml 700 ml 1200 ml Balance 1209 ml 526 ml -191 ml Exam Free Text/Dictation GENERAL: Alert and oriented x3, PULMONARY: Clear to auscultation bilaterally CARDIOVASCULAR: S1, S2 present ABDOMEN: Soft, nontender, nondistended. Bowel sounds positive. EXTREMITIES: -Right lower extremity palpable femoral pulse, palpable pedal pulse. Motor and sensory intact, Capillary refill 3,, edema 1+ -Left lower extremity, palpable femoral pulse, palpable pedal pulse. Motor and sensory intact. Capillary refill 3, edema 1+ -Bilateral groin soft with dressing - removed Results Result Diagram: 07/27/17 0510 07/27/17 0510 MATT MCCULLOUGH MD Jul 27, 2017 12:37
[2017-07-27] MEDS: APIXABAN 5 MG TABLET PO SCH ×2 (13:11→20:53)
--- NOTE | 2017-07-27 13:30 | CONS ---
Date/Time of Note Date/Time of Note DATE: 07/27/17 TIME: 13:28 Assessment/Plan Assessment/Plan Chief Complaint/Hosp Course IMPRESSION: 1. Preoperative evaluation prior to possible surgical vascular intervention.- negative trop x3 2. Hypertension. 3. Dyslipidemia. 4. Abnormal electrocardiogram with nonspecific ST and T-wave abnormalities. 5. Left lower extremity deep venous thrombosis status post inferior vena cava filter, on Coumadin. post-op s/p placement of perfusion/lysis catheter ninto LE bilateral 6. Chronic obstructive pulmonary disease. 7. 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-now improved s/p perfusion catheter lysis Recc: -Now on tele -s/p removal of perfusion catheter -Continue statin -Now started on eliquis -Follow volume status clsoely -low dose BB as tolerated Problems: Consultation Date/Type/Reason Admit Date/Time Jul 21, 2017 at 23:03 Initial Consult Date 07/23/17 Type of Consultation: cardiology Reason for Consultation HTN Referring Provider: MATT MCCULLOUGH MD Exam/Review of Systems Vital Signs Vitals Vital Signs Date Time Temp Pulse Resp B/P Pulse Ox O2 Delivery O2 Flow Rate FiO2 07/27/17 12:04 104 07/27/17 12:02 98.8 17 124/65 99 07/27/17 10:48 21 07/27/17 10:00 Room Air Intake and Output 07/26/17 07/26/17 07/27/17 15:00 23:00 07:00 Intake Total 1884 ml 1226 ml 1009 ml Output Total 675 ml 700 ml 1200 ml Balance 1209 ml 526 ml -191 ml Exam Review of Systems: CONSTITUTIONAL: No fevers, chills. PULMONARY: No sob CARDIOVASCULAR: No chest pain/palpitations GASTROINTESTINAL: No nausea/vomiting. GENITOURINARY: No hematuria/dysuria. MUSCULOSKELETAL: mild pain in legs/B PSYCHIATRIC: The patient denies depression. NEUROLOGIC: No weakness Constitutional: alert, oriented Psych: no complaints Head: normocephalic ENMT: mucosa pink and moist Neck: jvd (9 cm water), supple Respiratory: diminished breath sounds Cardiovascular: regular rate and rhythm Gastrointestinal: non-tender, soft Musculoskeletal: muscle weakness (mild) Extremities: edema (trace R>L) Neurological: other (No focal deficits) Results Result Diagram: 07/27/1710 07/27/1710 Results 24 hrs Laboratory Tests Test 07/26/17 13:50 07/27/17 05:10 Activated Partial Thromboplast Time 85.9 *H 70.8 *H White Blood Count 9.9 Red Blood Count 3.35 L Hemoglobin 8.8 L Hematocrit 28.5 L Mean Corpuscular Volume 85.1 Mean Corpuscular Hemoglobin 26.3 L Mean Corpuscular Hemoglobin Concent 30.9 L Red Cell Distribution Width 14.5 Platelet Count 358 # Mean Platelet Volume 9.5 Neutrophils % 74.6 Lymphocytes % 11.5 L Monocytes % 7.8 Eosinophils % 5.4 Basophils % 0.3 Nucleated Red Blood Cells % 0.0 Neutrophils # 7.4 Lymphocytes # 1.1 Monocytes # 0.8 Eosinophils # 0.5 Basophils # 0.0 Nucleated Red Blood Cells # 0.0 Sodium Level 141 Potassium Level 4.0 Chloride Level 107 Carbon Dioxide Level 28 Anion Gap 10 Blood Urea Nitrogen 10 Creatinine 0.69 Glucose Level 95 Calcium Level 8.7 Medications Medications Current Medications Dutasteride (Avodart) 0.5 mg DAILY PO Last administered on 07/27/17 08:20; Admin Dose 0.5 MG; Start 07/22/17 at 09:00 Gabapentin (Neurontin) 300 mg QHS PO Last administered on 07/26/17 20:31; Admin Dose 300 MG; Start 07/22/17 at 21:00 Salmeterol Xinafoate/ Fluticasone (Advair 250/50 Diskus) 1 inh BID INH Last administered on 07/27/17 08:21; Admin Dose 1 INH; Start 07/22/17 at 09:00 Atorvastatin Calcium (Lipitor) 10 mg QAM PO Last administered on 07/27/17 08: 20; Admin Dose 10 MG; Start 07/22/17 at 09:00 Acetaminophen (Tylenol Tab) 650 mg QID PRN PO PAIN LEVEL 1-5; Start 07/21/17 at 23:30 Ondansetron HCl (Zofran Inj) 4 mg Q6H PRN IV NAUSEA AND/OR VOMITING Last administered on 07/26/17 21:10; Admin Dose 4 MG; Start 07/21/17 at 23:30 Acetaminophen/ Hydrocodone Bitart ([place] (5/325)) 1 tab Q4H PRN PO PAIN LEVEL 4 -7 Last administered on 07/26/17 23:06; Admin Dose 1 TAB; Start 07/21/17 at 23:30 Hydromorphone HCl 1 mg 1 mg Q3H PRN IV PAIN Last administered on 07/26/17 20: 32; Admin Dose 1 MG; Start 07/23/17 at 22:00 Sodium Chloride (NS) 1,000 ml @ 135 mls/hr Q7H25M IV Last administered on 07:29; Admin Dose 135 MLS/HR; Start 07/25/17 at 16:00 Famotidine (Pepcid) 20 mg BID PO Last administered on 07/27/17 08:21; Admin Dose 20 MG; Start 07/26/17 at 21:00 Apixaban (Eliquis) 10 mg BID PO Last administered on 07/27/17 13:11; Admin Dose 10 MG; Start 07/27/17 at 13:00 AIMEE LANDEROS Jul 27, 2017 13:30
[2017-07-27] MEDS: HYDROCODONE/APAP (5/325) TAB PO PRN (17:44)
[2017-07-27] MEDS: GABAPENTIN 300 MG CAP PO SCH (20:52)
[2017-07-27] MEDS: METOPROLOL 25 MG TAB PO SCH (20:53)
[2017-07-27] MEDS: ZOLPIDEM 5 MG TAB PO PRN (22:46)
[2017-07-27] MEDS: HYDROmorphONE 1 MG/ML SYG IV PRN (22:46)
--- NOTE | 2017-07-27 22:47 | PN ---
Date/Time of Note Date/Time of Note DATE: 07/27/17 TIME: 16:15 Assessment/Plan Lines/Catheters IV Catheter Type (from [facility]): Peripheral IV Urinary Cath still in place: No Assessment/Plan Assessment/Plan -Right lower extremity pain, continue Alborn and morphine as needed for pain. 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 Mendiola is following in vascular surgery consultation. S/p vascular intervention. -Dr. Short isfollowing in cardiology consultation - monitor for s/s of bleeding -Hypercoagulation, Dr Amaya is following in hematology consultation. -Left leg DVT - COPD - Dyslipidemia - Former Smoker- smoking cessation reinforced - Anemia- monitor CBC Further recommendations based on clinical course. Plan of care discussed with Dr. Drake Subjective 24 Hr Interval Summary Constitutional: improved Eyes: no complaints ENT: no complaints Respiratory: no complaints Cardiovascular: no complaints Gastrointestinal: no complaints Genitourinary: no complaints Musculoskeletal: no complaints Skin: no complaints Exam/Review of Systems Vital Signs Vitals Vital Signs Date Time Temp Pulse Resp B/P Pulse Ox O2 Delivery O2 Flow Rate FiO2 07/27/17 15:32 98.7 97 17 132/67 100 07/27/17 14:04 21 07/27/17 10:00 Room Air Intake and Output 07/26/17 07/26/17 07/27/17 15:00 23:00 07:00 Intake Total 1884 ml 1226 ml 1009 ml Output Total 675 ml 700 ml 1200 ml Balance 1209 ml 526 ml -191 ml Exam Constitutional: alert, oriented, well developed Respiratory: clear to auscultation Cardiovascular: nl pulses Gastrointestinal: non-tender, soft Musculoskeletal: nl extremities to inspection Extremities: normal pulses Neurological: nl mental status, nl speech Skin: nl turgor Results Result Diagram: 07/27/17 0510 07/27/17 0510 Results 24 hrs Laboratory Tests Test 07/27/17 05:10 White Blood Count 9.9 Red Blood Count 3.35 L Hemoglobin 8.8 L Hematocrit 28.5 L Mean Corpuscular Volume 85.1 Mean Corpuscular Hemoglobin 26.3 L Mean Corpuscular Hemoglobin Concent 30.9 L Red Cell Distribution Width 14.5 Platelet Count 358 # Mean Platelet Volume 9.5 Neutrophils % 74.6 Lymphocytes % 11.5 L Monocytes % 7.8 Eosinophils % 5.4 Basophils % 0.3 Nucleated Red Blood Cells % 0.0 Neutrophils # 7.4 Lymphocytes # 1.1 Monocytes # 0.8 Eosinophils # 0.5 Basophils # 0.0 Nucleated Red Blood Cells # 0.0 Activated Partial Thromboplast Time 70.8 *H Sodium Level 141 Potassium Level 4.0 Chloride Level 107 Carbon Dioxide Level 28 Anion Gap 10 Blood Urea Nitrogen 10 Creatinine 0.69 Glucose Level 95 Calcium Level 8.7 Medications Medications Current Medications Dutasteride (Avodart) 0.5 mg DAILY PO Last administered on 07/27/17 08:20; Admin Dose 0.5 MG; Start 07/22/17 at 09:00 Gabapentin (Neurontin) 300 mg QHS PO Last administered on 07/26/17 20:31; Admin Dose 300 MG; Start 07/22/17 at 21:00 Salmeterol Xinafoate/ Fluticasone (Advair 250/50 Diskus) 1 inh BID INH Last administered on 07/27/17 08:21; Admin Dose 1 INH; Start 07/22/17 at 09:00 Atorvastatin Calcium (Lipitor) 10 mg QAM PO Last administered on 07/27/17 08: 20; Admin Dose 10 MG; Start 07/22/17 at 09:00 Acetaminophen (Tylenol Tab) 650 mg QID PRN PO PAIN LEVEL 1-5; Start 07/21/17 at 23:30 Ondansetron HCl (Zofran Inj) 4 mg Q6H PRN IV NAUSEA AND/OR VOMITING Last administered on 07/26/17 21:10; Admin Dose 4 MG; Start 07/21/17 at 23:30 Acetaminophen/ Hydrocodone Bitart (Alborn (5/325)) 1 tab Q4H PRN PO PAIN LEVEL 4 -7 Last administered on 07/26/17 23:06; Admin Dose 1 TAB; Start 07/21/17 at 23:30 Hydromorphone HCl 1 mg 1 mg Q3H PRN IV PAIN Last administered on 07/26/17 20: 32; Admin Dose 1 MG; Start 07/23/17 at 22:00 Sodium Chloride (NS) 1,000 ml @ 70 mls/hr [id number] IV Last administered on 07:29; Admin Dose 135 MLS/HR; Start 07/25/17 at 16:00 Famotidine (Pepcid) 20 mg BID PO Last administered on 07/27/17 08:21; Admin Dose 20 MG; Start 07/26/17 at 21:00 Apixaban (Eliquis) 10 mg BID PO Last administered on 07/27/17 13:11; Admin Dose 10 MG; Start 07/27/17 at 13:00 Metoprolol Tartrate (Lopressor) 12.5 mg BID PO ; Start 07/27/17 at 21:00 JOSIE CHENG Jul 27, 2017 16:25
[2017-07-28] VITALS (10 sets, daily range): BP systolic 102–132; BP diastolic 65–74; PULSE 92–100; RESP 18–22
[2017-07-28] MEDS: ALBUTEROL/IPRATROPIUM (NEB) 3 ML AMP HHN SCH ×6 (01:00→20:57)
[2017-07-28] MEDS: APIXABAN 5 MG TABLET PO SCH ×2 (08:17→21:26)
[2017-07-28] MEDS: DUTASTERIDE 0.5 MG CAP PO SCH (08:17)
[2017-07-28] MEDS: ATORVASTATIN 10 MG TAB PO SCH (08:17)
[2017-07-28] MEDS: FAMOTIDINE 20 MG TAB PO SCH ×2 (08:17→21:27)
[2017-07-28] MEDS: SALMETEROL/FLUTICASONE 250/50 INHA INH SCH ×2 (08:18→21:31)
[2017-07-28] MEDS: METOPROLOL 25 MG TAB PO SCH ×2 (08:18→21:29)
[2017-07-28 08:39] LABS: BASOPHILS % 0.5 % (0.0-2.0); EOSINOPHILS # 0.7 10^3/ul (0.0-0.5); HEMATOCRIT 29.1 % (42.0-52.0); HEMOGLOBIN 9.3 g/dl (14.0-18.0); LYMPHOCYTES # 0.9 10^3/ul (0.8-2.9); LYMPHOCYTES % 11.1 % (15.0-51.0); MEAN CORPUSCULAR HEMOGLOBIN 27.4 pg (29.0-33.0); MEAN CORPUSCULAR VOLUME 85.6 fl (82.0-101.0); MEAN PLATELET VOLUME 9.3 fl (7.4-10.4); MONOCYTE # 0.8 10^3/ul (0.3-0.9); MONOCYTES % 9.7 % (0.0-11.0); NEUTROPHIL # 5.9 10^3/ul (1.6-7.5); PLATELET COUNT 301 10^3/UL (140-415); RED CELL DISTRIBUTION WIDTH 14.2 % (11.5-14.5); WHITE BLOOD COUNT 8.5 10^3/ul (4.8-10.8)
[2017-07-28 09:06] LABS: CALCIUM 8.6 mg/dl (8.4-10.2); CREATININE 0.66 mg/dl (0.61-1.24); POTASSIUM 3.8 mmol/L (3.5-5.1)
--- NOTE | 2017-07-28 13:59 | CONS ---
Date/Time of Note Date/Time of Note DATE: 07/28/17 TIME: 13:55 Assessment/Plan Assessment/Plan Chief Complaint/Hosp Course IMPRESSION: 1. Preoperative evaluation prior to possible surgical vascular intervention.- negative trop x3 2. Hypertension. 3. Dyslipidemia. 4. Abnormal electrocardiogram with nonspecific ST and T-wave abnormalities. 5. Left lower extremity deep venous thrombosis status post inferior vena cava filter, on Coumadin. post-op s/p placement of perfusion/lysis catheter ninto LE bilateral 6. Chronic obstructive pulmonary disease. 7. 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-now improved s/p perfusion catheter lysis Recc: -Now on tele -s/p removal of perfusion catheter -Continue statin -Now started on eliquis -Follow volume status closely and would hold further IVF hydration and consider gentle lasix diuresis -low dose BB as tolerated Problems: Consultation Date/Type/Reason Admit Date/Time Jul 21, 2017 at 23:03 Initial Consult Date 07/23/17 Type of Consultation: cardiology Reason for Consultation HTN/abnl ecg Referring Provider: MATT MCCULLOUGH MD Exam/Review of Systems Vital Signs Vitals Vital Signs Date Time Temp Pulse Resp B/P Pulse Ox O2 Delivery O2 Flow Rate FiO2 07/28/17 12:50 100 07/28/17 12:28 94 21 07/28/17 12:27 20 07/28/17 11:36 98.1 102/68 07/27/17 10:00 Room Air Intake and Output 07/27/17 07/27/17 07/28/17 15:00 23:00 07:00 Intake Total 110 ml 1490 ml 120 ml Output Total 250 ml 1100 ml 660 ml Balance -140 ml 390 ml -540 ml Exam Review of Systems: CONSTITUTIONAL: No fevers, chills. PULMONARY: No sob CARDIOVASCULAR: No chest pain/palpitations GASTROINTESTINAL: No nausea/vomiting. GENITOURINARY: No hematuria/dysuria. MUSCULOSKELETAL: No myagias/arthalgias. PSYCHIATRIC: The patient denies depression. NEUROLOGIC: No weakness Constitutional: alert, oriented Psych: no complaints Head: normocephalic ENMT: mucosa pink and moist Neck: jvd (9 cm water), supple Respiratory: clear to auscultation Cardiovascular: regular rate and rhythm Gastrointestinal: non-tender, soft Musculoskeletal: muscle tone (normal) Extremities: edema (RLE edema>LLE) Neurological: other (NO focal deficits) Results Result Diagram: 07/28/1772407/28/17 0725 Results 24 hrs Laboratory Tests Test 07/28/17 07:25 White Blood Count 8.5 Red Blood Count 3.40 L Hemoglobin 9.3 L Hematocrit 29.1 L Mean Corpuscular Volume 85.6 Mean Corpuscular Hemoglobin 27.4 L Mean Corpuscular Hemoglobin Concent 32.0 Red Cell Distribution Width 14.2 Platelet Count 301 Mean Platelet Volume 9.3 Neutrophils % 70.0 Lymphocytes % 11.1 L Monocytes % 9.7 Eosinophils % 8.0 H Basophils % 0.5 Nucleated Red Blood Cells % 0.0 Neutrophils # 5.9 Lymphocytes # 0.9 Monocytes # 0.8 Eosinophils # 0.7 H Basophils # 0.0 Nucleated Red Blood Cells # 0.0 Sodium Level 140 Potassium Level 3.8 Chloride Level 106 Carbon Dioxide Level 27 Anion Gap 11 Blood Urea Nitrogen 7 Creatinine 0.66 Glucose Level 79 Calcium Level 8.6 Medications Medications Current Medications Dutasteride (Avodart) 0.5 mg DAILY PO Last administered on 07/28/17 08:17; Admin Dose 0.5 MG; Start 07/22/17 at 09:00 Gabapentin (Neurontin) 300 mg QHS PO Last administered on 07/27/17 20:52; Admin Dose 300 MG; Start 07/22/17 at 21:00 Salmeterol Xinafoate/ Fluticasone (Advair 250/50 Diskus) 1 inh BID INH Last administered on 07/28/17 08:18; Admin Dose 1 INH; Start 07/22/17 at 09:00 Atorvastatin Calcium (Lipitor) 10 mg QAM PO Last administered on 07/28/17 08: 17; Admin Dose 10 MG; Start 07/22/17 at 09:00 Acetaminophen (Tylenol Tab) 650 mg QID PRN PO PAIN LEVEL 1-5; Start 07/21/17 at 23:30 Ondansetron HCl (Zofran Inj) 4 mg Q6H PRN IV NAUSEA AND/OR VOMITING Last administered on 07/26/17 21:10; Admin Dose 4 MG; Start 07/21/17 at 23:30 Acetaminophen/ Hydrocodone Bitart ([place] (5/325)) 1 tab Q4H PRN PO PAIN LEVEL 4 -7 Last administered on 07/27/17 17:44; Admin Dose 1 TAB; Start 07/21/17 at 23:30 Hydromorphone HCl 1 mg 1 mg Q3H PRN IV PAIN Last administered on 07/27/17 22: 46; Admin Dose 1 MG; Start 07/23/17 at 22:00 Sodium Chloride (NS) 1,000 ml @ 70 mls/hr [id number] IV Last administered on 16:22; Admin Dose 70 MLS/HR; Start 07/25/17 at 16:00 Famotidine (Pepcid) 20 mg BID PO Last administered on 07/28/17 08:17; Admin Dose 20 MG; Start 07/26/17 at 21:00 Apixaban (Eliquis) 10 mg BID PO Last administered on 07/28/17 08:17; Admin Dose 10 MG; Start 07/27/17 at 13:00 Metoprolol Tartrate (Lopressor) 12.5 mg BID PO Last administered on 07/28/17 08:18; Admin Dose 12.5 MG; Start 07/27/17 at 21:00 AIMEE LANDEROS Jul 28, 2017 13:59
[2017-07-28] MEDS ORDERED: FUROSEMIDE 20 MG INJ IV ONE (14:00)
[2017-07-28] MEDS: HYDROCODONE/APAP (5/325) TAB PO PRN ×2 (14:25→21:29)
--- NOTE | 2017-07-28 15:13 | PN ---
Date/Time of Note Date/Time of Note DATE: 07/28/17 TIME: 15:04 Assessment/Plan VTE Prophylaxis VTE Prophylaxis Intervention: other Lines/Catheters IV C[facility]ter Type (from [facility]): Peripheral IV Urinary Cath still in place: No Assessment/Plan Chief Complaint/Hosp Course Patient's complaints of constipation will start patient on bowel regimen. Pt was able to get out of bed with physical therapy, continue PT. Assessment/Plan Right lower extremity pain, continue [place] and morphine as needed for pain. 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 Mendiola is following in vascular surgery consultation. S/p vascular intervention. Status post TPN and heparin drip. Patient is currently on Eliquis. Dr. Short is following in cardiology consultation Hypercoagulation, Dr Amaya is following in hematology consultation. Left leg DVT COPD Dyslipidemia Further recommendations based on clinical course. Plan of care discussed with Dr. Drake Problems: Exam/Review of Systems Vital Signs Vitals Vital Signs Date Time Temp Pulse Resp B/P Pulse Ox O2 Delivery O2 Flow Rate FiO2 07/28/17 12:50 100 07/28/17 12:28 94 21 07/28/17 12:27 20 07/28/17 11:36 98.1 102/68 07/27/17 10:00 Room Air Intake and Output 07/27/17 07/27/17 07/28/17 15:00 23:00 07:00 Intake Total 110 ml 1490 ml 120 ml Output Total 250 ml 1100 ml 660 ml Balance -140 ml 390 ml -540 ml Exam Constitutional: alert, oriented Neck: supple Respiratory: normal air movement Cardiovascular: nl pulses Gastrointestinal: non-tender, soft Musculoskeletal: nl extremities to inspection Extremities: normal pulses Results Result Diagram: 07/28/1772407/28/17724 Results 24 hrs Laboratory Tests Test 07/28/17 07:25 White Blood Count 8.5 Red Blood Count 3.40 L Hemoglobin 9.3 L Hematocrit 29.1 L Mean Corpuscular Volume 85.6 Mean Corpuscular Hemoglobin 27.4 L Mean Corpuscular Hemoglobin Concent 32.0 Red Cell Distribution Width 14.2 Platelet Count 301 Mean Platelet Volume 9.3 Neutrophils % 70.0 Lymphocytes % 11.1 L Monocytes % 9.7 Eosinophils % 8.0 H Basophils % 0.5 Nucleated Red Blood Cells % 0.0 Neutrophils # 5.9 Lymphocytes # 0.9 Monocytes # 0.8 Eosinophils # 0.7 H Basophils # 0.0 Nucleated Red Blood Cells # 0.0 Sodium Level 140 Potassium Level 3.8 Chloride Level 106 Carbon Dioxide Level 27 Anion Gap 11 Blood Urea Nitrogen 7 Creatinine 0.66 Glucose Level 79 Calcium Level 8.6 Medications Medications Current Medications Dutasteride (Avodart) 0.5 mg DAILY PO Last administered on 07/28/17 08:17; Admin Dose 0.5 MG; Start 07/22/17 at 09:00 Gabapentin (Neurontin) 300 mg QHS PO Last administered on 07/27/17 20:52; Admin Dose 300 MG; Start 07/22/17 at 21:00 Salmeterol Xinafoate/ Fluticasone (Advair 250/50 Diskus) 1 inh BID INH Last administered on 07/28/17 08:18; Admin Dose 1 INH; Start 07/22/17 at 09:00 Atorvastatin Calcium (Lipitor) 10 mg QAM PO Last administered on 07/28/17 08: 17; Admin Dose 10 MG; Start 07/22/17 at 09:00 Acetaminophen (Tylenol Tab) 650 mg QID PRN PO PAIN LEVEL 1-5; Start 07/21/17 at 23:30 Ondansetron HCl (Zofran Inj) 4 mg Q6H PRN IV NAUSEA AND/OR VOMITING Last administered on 07/26/17 21:10; Admin Dose 4 MG; Start 07/21/17 at 23:30 Acetaminophen/ Hydrocodone Bitart ([place] (5/325)) 1 tab Q4H PRN PO PAIN LEVEL 4 -7 Last administered on 07/28/17 14:25; Admin Dose 1 TAB; Start 07/21/17 at 23:30 Hydromorphone HCl (Dilaudid) 1 mg Q3H PRN IV PAIN Last administered on 22:46; Admin Dose 1 MG; Start 07/23/17 at 22:00 Famotidine (Pepcid) 20 mg BID PO Last administered on 07/28/17 08:17; Admin Dose 20 MG; Start 07/26/17 at 21:00 Apixaban (Eliquis) 10 mg BID PO Last administered on 07/28/17 08:17; Admin Dose 10 MG; Start 07/27/17 at 13:00 Metoprolol Tartrate (Lopressor) 12.5 mg BID PO Last administered on 07/28/17t 08:18; Admin Dose 12.5 MG; Start 07/27/17 at 21:00 Docusate Sodium (Colace) 100 mg BID PO ; Start 07/28/17 at 21:00 Polyethylene Glycol (Miralax) 17 gm PRN PRN PO CONSTIPATION; Start 07/28/17 at 15:00 LISETTE MEDINA Jul 28, 2017 15:13
--- NOTE | 2017-07-28 17:48 | PN ---
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 -S/P Right fem-pop Stent grafting and Aortoiliac angiogram 07/23/2017 -Bilateral lower extremity acute venous thrombosis involving CFV, iliac veins and IVC: It seems the patient may have failed with Coumadin therapy as he had previous acute onsets of venous thrombosis with therapeutic INR's 07/23/2017: -S/P Bilateral lower extremity venogram -S/P Bilateral CI, EI, CF veins and caval mechanical thrombectomy -S/P Thrombolysis Catheters 07/24/2017: -S/P Bilateral lysis check 07/25/2017 -S/P Bilateral Lysis check -Appreciate hematology Evaluation -Will need to obtain CT chest to rule out any underlying tumors (cause of hypercoagulable state) -Continue neurovascular checks Q4 -Start Eliquis 10mg PO BID -PT/OT full weight bearing with assistance -Clear from vascular surgery for D/C planning -Optimize vascular status (BP meds, diet, nutrition, exercise, sugar control, antiplatelets). -Discussed findings, plan and management with the patient and he understands. -Discussed limb salvage and realistic outcomes of our current findings and the possibility of limb loss is there. Patient fully understands and would like to have everything done in order to provide adequate limb salvage for him. -Appreciate cardiology evaluation for possible surgical revascularization. -Thank you for allowing us to partake in the care of your patient. Please call with any questions. Problems: Subjective 24 Hr Interval Summary no new vascular events overnight, pt tolerated OOB Exam/Review of Systems Vital Signs Vitals Vital Signs Date Time Temp Pulse Resp B/P Pulse Ox O2 Delivery O2 Flow Rate FiO2 07/28/17 16:46 106 18 98 21 07/28/17 16:43 98.4 118/65 07/27/17 10:00 Room Air Intake and Output 07/27/17 07/27/17 07/28/17 15:00 23:00 07:00 Intake Total 110 ml 1490 ml 120 ml Output Total 250 ml 1100 ml 660 ml Balance -140 ml 390 ml -540 ml Exam Free Text/Dictation GENERAL: Alert and oriented x3, PULMONARY: Clear to auscultation bilaterally CARDIOVASCULAR: S1, S2 present ABDOMEN: Soft, nontender, nondistended. Bowel sounds positive. EXTREMITIES: -Right lower extremity palpable femoral pulse, palpable pedal pulse. Motor and sensory intact, Capillary refill 3,, edema 1+ -Left lower extremity, palpable femoral pulse, palpable pedal pulse. Motor and sensory intact. Capillary refill 3, edema 1+ -Bilateral groin soft Results Result Diagram: 07/28/17 0725 07/28/17 0725 MATT MCCULLOUGH MD Jul 28, 2017 17:48
[2017-07-28] MEDS: DOCUSATE SODIUM 100 MG CAP PO SCH (21:26)
[2017-07-28] MEDS: GABAPENTIN 300 MG CAP PO SCH (21:26)
[2017-07-28] MEDS: ZOLPIDEM 5 MG TAB PO PRN (23:16)
[2017-07-29] MEDS: ALBUTEROL/IPRATROPIUM (NEB) 3 ML AMP HHN SCH ×6 (01:00→20:13)
[2017-07-29 01:57] VITALS: BP 123/65; RESP 20
[2017-07-29 05:58] LABS: BASOPHIL # 0.1 10^3/ul (0.0-0.1); BASOPHILS % 0.5 % (0.0-2.0); EOSINOPHILS # 0.7 10^3/ul (0.0-0.5); EOSINOPHILS % 7.5 % (0.0-7.0); HEMATOCRIT 29.1 % (42.0-52.0); HEMOGLOBIN 9.2 g/dl (14.0-18.0); LYMPHOCYTES # 1.3 10^3/ul (0.8-2.9); MEAN CORPUSCULAR HEMOGLOBIN 26.9 pg (29.0-33.0); MEAN CORPUSCULAR HGB CONC 31.6 g/dl (32.0-37.0); MEAN CORPUSCULAR VOLUME 85.1 fl (82.0-101.0); MEAN PLATELET VOLUME 9.1 fl (7.4-10.4); MONOCYTE # 1.2 10^3/ul (0.3-0.9); MONOCYTES % 11.9 % (0.0-11.0); NEUTROPHIL # 6.4 10^3/ul (1.6-7.5); NEUTROPHILS % 66.1 % (39.0-77.0); PLATELET COUNT 286 10^3/UL (140-415); RED BLOOD COUNT 3.42 10^6/ul (4.70-6.10); RED CELL DISTRIBUTION WIDTH 14.5 % (11.5-14.5); WHITE BLOOD COUNT 9.8 10^3/ul (4.8-10.8)
[2017-07-29 06:30] LABS: CALCIUM 8.9 mg/dl (8.4-10.2); CREATININE 0.78 mg/dl (0.61-1.24); POTASSIUM 3.7 mmol/L (3.5-5.1)
[2017-07-29 07:58] VITALS: BP 125/72; RESP 20
[2017-07-29 08:57] VITALS: BP 120/70; PULSE 100; RESP 18
[2017-07-29] MEDS: ATORVASTATIN 10 MG TAB PO SCH (08:59)
[2017-07-29] MEDS: FAMOTIDINE 20 MG TAB PO SCH ×2 (08:59→20:34)
[2017-07-29] MEDS: DUTASTERIDE 0.5 MG CAP PO SCH (08:59)
[2017-07-29] MEDS: DOCUSATE SODIUM 100 MG CAP PO SCH ×2 (09:00→20:34)
[2017-07-29] MEDS: APIXABAN 5 MG TABLET PO SCH ×2 (09:00→20:34)
[2017-07-29] MEDS: METOPROLOL 25 MG TAB PO SCH ×2 (09:00→20:35)
[2017-07-29] MEDS: SALMETEROL/FLUTICASONE 250/50 INHA INH SCH ×2 (09:01→20:36)
--- NOTE | 2017-07-29 11:21 | CONS ---
Date/Time of Note Date/Time of Note DATE: 07/29/17 TIME: 11:20 Assessment/Plan Assessment/Plan Additional Assessment/Plan 1. Preoperative evaluation prior to possible surgical vascular intervention.- negative trop x3 - stable now, awaiting surgical dispo 2. Hypertension- well Rx, con't Med rx 3. Dyslipidemia. 4. Abnormal electrocardiogram with nonspecific ST and T-wave abnormalities - on -speciffic 5. Left lower extremity deep venous thrombosis status post inferior vena cava filter, on Coumadin. post-op s/p placement of perfusion/lysis catheter ninto LE bilateral - no pain now 6. Chronic obstructive pulmonary disease. 7. 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-now improved s/p perfusion catheter lysis Consultation Date/Type/Reason Admit Date/Time Jul 21, 2017 at 23:03 Initial Consult Date 07/23/17 Type of Consultation: cardiology Referring Provider: MATT MCCULLOUGH MD 24 HR Interval Summary Free Text/Dictation NO acute events - off tele now ROS: No fever, no chills, no nausea, no vomiting, no diarrhea/constipation No recent weight changes No chest pain, no PND, no orthopnea No dizziness, blurred vision No thirst, no heat or cold intolerance Exam/Review of Systems Vital Signs Vitals Vital Signs Date Time Temp Pulse Resp B/P Pulse Ox O2 Delivery O2 Flow Rate FiO2 07/29/17 09:13 120 20 96 21 07/29/17 08:57 120/70 Room Air 07/29/17 07:58 98.5 Intake and Output 07/28/17 07/28/17 07/29/17 15:00 23:00 07:00 Intake Total 720 ml 200 ml Output Total 2100 ml 200 ml Balance -1380 ml 0 ml Exam General: WN/WD/NAD, AOx 3 HEENT: Unicetric/atraumatic/EOMI (follows commands) NECK: JVD elevated, no thyromegaly Lymph: no lymphadenopathy HEART: regular with no S3, II/ systolic murmur at apex LUNGS: Coarse sounds ABD: soft, NT, ND, +BS : Intact Neuro: non focal SKIN: chronic changes EXT: trace edema, pAD Results Result Diagram: 07/29/1752407/29/17524 Results 24 hrs Laboratory Tests Test 07/29/17 05:25 07/29/17 07:20 White Blood Count 9.8 Red Blood Count 3.42 L Hemoglobin 9.2 L Hematocrit 29.1 L Mean Corpuscular Volume 85.1 Mean Corpuscular Hemoglobin 26.9 L Mean Corpuscular Hemoglobin Concent 31.6 L Red Cell Distribution Width 14.5 Platelet Count 286 Mean Platelet Volume 9.1 Neutrophils % 66.1 Lymphocytes % 13.0 L Monocytes % 11.9 H Eosinophils % 7.5 H Basophils % 0.5 Nucleated Red Blood Cells % 0.0 Neutrophils # 6.4 Lymphocytes # 1.3 Monocytes # 1.2 H Eosinophils # 0.7 H Basophils # 0.1 Nucleated Red Blood Cells # 0.0 Sodium Level 141 Potassium Level 3.7 Chloride Level 103 Carbon Dioxide Level 29 Anion Gap 13 Blood Urea Nitrogen 12 Creatinine 0.78 Glucose Level 91 Calcium Level 8.9 Lab Scanned Report REFERENCE LAB Medications Medications Current Medications Dutasteride (Avodart) 0.5 mg DAILY PO Last administered on 07/29/17 08:59; Admin Dose 0.5 MG; Start 07/22/17 at 09:00 Gabapentin (Neurontin) 300 mg QHS PO Last administered on 07/28/17 21:26; Admin Dose 300 MG; Start 07/22/17 at 21:00 Salmeterol Xinafoate/ Fluticasone (Advair 250/50 Diskus) 1 inh BID INH Last administered on 07/29/17 09:01; Admin Dose 1 INH; Start 07/22/17 at 09:00 Atorvastatin Calcium (Lipitor) 10 mg QAM PO Last administered on 07/29/17 08: 59; Admin Dose 10 MG; Start 07/22/17 at 09:00 Acetaminophen (Tylenol Tab) 650 mg QID PRN PO PAIN LEVEL 1-5; Start 07/21/17 at 23:30 Ondansetron HCl (Zofran Inj) 4 mg Q6H PRN IV NAUSEA AND/OR VOMITING Last administered on 07/26/17 21:10; Admin Dose 4 MG; Start 07/21/17 at 23:30 Acetaminophen/ Hydrocodone Bitart ([place] (5/325)) 1 tab Q4H PRN PO PAIN LEVEL 4 -7 Last administered on 07/28/17 21:29; Admin Dose 1 TAB; Start 07/21/17 at 23:30 Hydromorphone HCl (Dilaudid) 1 mg Q3H PRN IV PAIN Last administered on 22:46; Admin Dose 1 MG; Start 07/23/17 at 22:00 Famotidine (Pepcid) 20 mg BID PO Last administered on 07/29/17 08:59; Admin Dose 20 MG; Start 07/26/17 at 21:00 Apixaban (Eliquis) 10 mg BID PO Last administered on 07/29/17 09:00; Admin Dose 10 MG; Start 07/27/17 at 13:00 Metoprolol Tartrate (Lopressor) 12.5 mg BID PO Last administered on 07/29/17 09:00; Admin Dose 12.5 MG; Start 07/27/17 at 21:00 Docusate Sodium (Colace) 100 mg BID PO Last administered on 07/29/17 09:00; Admin Dose 100 MG; Start 07/28/17 at 21:00 Polyethylene Glycol (Miralax) 17 gm PRN PRN PO CONSTIPATION; Start 07/28/17 at 15:00 KRISTYN FLOR MD Jul 29, 2017 11:21
[2017-07-29] MEDS: POLYETHYLENE GLYCOL 17 GM PACKET PO PRN (11:57)
--- NOTE | 2017-07-29 12:26 | PN ---
Date/Time of Note Date/Time of Note DATE: 07/29/17 TIME: 12:24 Assessment/Plan VTE Prophylaxis VTE Prophylaxis Intervention: SCD's Lines/Catheters IV Catheter Type (from [place]): [place] Urinary Cath still in place: No Assessment/Plan Chief Complaint/Hosp Course Patient complains of constipation, apparently and MiraLAX which was ordered yesterday was not given, continue MiraLAX daily as needed for constipation. She was able to get out of bed and ambulate with physical therapy. Patient denies any acute pain with ambulation. Assessment/Plan Right lower extremity pain, continue [place] and morphine as needed for pain. 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 Mendiola is following in vascular surgery consultation. S/p thrombectomy. Status post TPN and heparin drip. Patient is currently on Eliquis. Dr. Short is following in cardiology consultation Hypercoagulation, Dr Amaya is following in hematology consultation. Left leg DVT COPD Dyslipidemia Further recommendations based on clinical course. Plan of care discussed with Dr. Drake Problems: Exam/Review of Systems Vital Signs Vitals Vital Signs Date Time Temp Pulse Resp B/P Pulse Ox O2 Delivery O2 Flow Rate FiO2 07/29/17 09:13 120 20 96 21 07/29/17 08:57 120/70 Room Air 07/29/17 07:58 98.5 Intake and Output 07/28/17 07/28/17 07/29/17 15:00 23:00 07:00 Intake Total 720 ml 200 ml Output Total 2100 ml 200 ml Balance -1380 ml 0 ml Exam Constitutional: alert, oriented Neck: supple Respiratory: normal air movement Cardiovascular: nl pulses Gastrointestinal: non-tender, soft Musculoskeletal: nl extremities to inspection Extremities: normal pulses Results Result Diagram: 07/29/17 0525 07/29/17524 Results 24 hrs Laboratory Tests Test 07/29/17 05:25 07/29/17 07:20 White Blood Count 9.8 Red Blood Count 3.42 L Hemoglobin 9.2 L Hematocrit 29.1 L Mean Corpuscular Volume 85.1 Mean Corpuscular Hemoglobin 26.9 L Mean Corpuscular Hemoglobin Concent 31.6 L Red Cell Distribution Width 14.5 Platelet Count 286 Mean Platelet Volume 9.1 Neutrophils % 66.1 Lymphocytes % 13.0 L Monocytes % 11.9 H Eosinophils % 7.5 H Basophils % 0.5 Nucleated Red Blood Cells % 0.0 Neutrophils # 6.4 Lymphocytes # 1.3 Monocytes # 1.2 H Eosinophils # 0.7 H Basophils # 0.1 Nucleated Red Blood Cells # 0.0 Sodium Level 141 Potassium Level 3.7 Chloride Level 103 Carbon Dioxide Level 29 Anion Gap 13 Blood Urea Nitrogen 12 Creatinine 0.78 Glucose Level 91 Calcium Level 8.9 Lab Scanned Report REFERENCE LAB Medications Medications Current Medications Dutasteride (Avodart) 0.5 mg DAILY PO Last administered on 07/29/17 08:59; Admin Dose 0.5 MG; Start 07/22/17 at 09:00 Gabapentin (Neurontin) 300 mg QHS PO Last administered on 07/28/17 21:26; Admin Dose 300 MG; Start 07/22/17 at 21:00 Salmeterol Xinafoate/ Fluticasone (Advair 250/50 Diskus) 1 inh BID INH Last administered on 07/29/17 09:01; Admin Dose 1 INH; Start 07/22/17 at 09:00 Atorvastatin Calcium (Lipitor) 10 mg QAM PO Last administered on 07/29/17 08: 59; Admin Dose 10 MG; Start 07/22/17 at 09:00 Acetaminophen (Tylenol Tab) 650 mg QID PRN PO PAIN LEVEL 1-5; Start 07/21/17 at 23:30 Ondansetron HCl (Zofran Inj) 4 mg Q6H PRN IV NAUSEA AND/OR VOMITING Last administered on 07/26/17 21:10; Admin Dose 4 MG; Start 07/21/17 at 23:30 Acetaminophen/ Hydrocodone Bitart ([place] (5/325)) 1 tab Q4H PRN PO PAIN LEVEL 4 -7 Last administered on 07/28/17 21:29; Admin Dose 1 TAB; Start 07/21/17 at 23:30 Hydromorphone HCl (Dilaudid) 1 mg Q3H PRN IV PAIN Last administered on 22:46; Admin Dose 1 MG; Start 07/23/17 at 22:00 Famotidine (Pepcid) 20 mg BID PO Last administered on 07/29/17 08:59; Admin Dose 20 MG; Start 07/26/17 at 21:00 Apixaban (Eliquis) 10 mg BID PO Last administered on 07/29/17 09:00; Admin Dose 10 MG; Start 07/27/17 at 13:00 Metoprolol Tartrate (Lopressor) 12.5 mg BID PO Last administered on 07/29/17 09:00; Admin Dose 12.5 MG; Start 07/27/17 at 21:00 Docusate Sodium (Colace) 100 mg BID PO Last administered on 07/29/17 09:00; Admin Dose 100 MG; Start 07/28/17 at 21:00 Polyethylene Glycol (Miralax) 17 gm PRN PRN PO CONSTIPATION Last administered on 07/29/17 11:57; Admin Dose 17 GM; Start 07/28/17 at 15:00 LISETTE MEIDNA Jul 29, 2017 12:26
[2017-07-29] MEDS: HYDROCODONE/APAP (5/325) TAB PO PRN ×2 (13:56→21:58)
[2017-07-29 14:00] VITALS: BP 108/64; RESP 20
[2017-07-29] MEDS: HYDROmorphONE 1 MG/ML SYG IV PRN (20:32)
[2017-07-29] MEDS: GABAPENTIN 300 MG CAP PO SCH (20:34)
[2017-07-29 20:44] VITALS: BP 106/58; RESP 18
[2017-07-29 21:00] VITALS: PULSE 102
[2017-07-29] MEDS: ZOLPIDEM 5 MG TAB PO PRN (23:14)
[2017-07-30] MEDS: ALBUTEROL/IPRATROPIUM (NEB) 3 ML AMP HHN SCH ×5 (01:00→16:27)
[2017-07-30 06:14] LABS: ABNORMAL IP MESSAGE 1; BASOPHIL # 0.1 10^3/ul (0.0-0.1); BASOPHILS % 0.4 % (0.0-2.0); EOSINOPHILS # 0.3 10^3/ul (0.0-0.5); EOSINOPHILS % 1.9 % (0.0-7.0); HEMATOCRIT 30.3 % (42.0-52.0); HEMOGLOBIN 9.7 g/dl (14.0-18.0); LYMPHOCYTES # 1.2 10^3/ul (0.8-2.9); LYMPHOCYTES % 8.8 % (15.0-51.0); MEAN CORPUSCULAR HEMOGLOBIN 27.2 pg (29.0-33.0); MEAN CORPUSCULAR VOLUME 84.9 fl (82.0-101.0); MEAN PLATELET VOLUME 9.5 fl (7.4-10.4); MONOCYTE # 1.8 10^3/ul (0.3-0.9); MONOCYTES % 13.3 % (0.0-11.0); NEUTROPHIL # 9.9 10^3/ul (1.6-7.5); NEUTROPHILS % 74.2 % (39.0-77.0); PLATELET COUNT 305 10^3/UL (140-415); POSITIVE DIFF @See below; RED BLOOD COUNT 3.57 10^6/ul (4.70-6.10); RED CELL DISTRIBUTION WIDTH 14.4 % (11.5-14.5); WHITE BLOOD COUNT 13.3 10^3/ul (4.8-10.8)
[2017-07-30 06:45] LABS: CALCIUM 9.1 mg/dl (8.4-10.2); CREATININE 0.81 mg/dl (0.61-1.24); POTASSIUM 4.1 mmol/L (3.5-5.1)
[2017-07-30] MEDS: POLYETHYLENE GLYCOL 17 GM PACKET PO PRN ×2 (07:01→18:13)
[2017-07-30] MEDS: HYDROmorphONE 1 MG/ML SYG IV PRN ×5 (07:10→21:18)
[2017-07-30 08:00] VITALS: BP 97/59; RESP 18
[2017-07-30] MEDS: METOPROLOL 25 MG TAB PO SCH ×2 (09:00→20:23)
[2017-07-30] MEDS: SALMETEROL/FLUTICASONE 250/50 INHA INH SCH ×2 (09:31→20:22)
[2017-07-30] MEDS: DUTASTERIDE 0.5 MG CAP PO SCH (09:31)
[2017-07-30] MEDS: FAMOTIDINE 20 MG TAB PO SCH ×2 (09:32→20:23)
[2017-07-30] MEDS: DOCUSATE SODIUM 100 MG CAP PO SCH ×2 (09:32→20:22)
[2017-07-30] MEDS: ATORVASTATIN 10 MG TAB PO SCH (09:32)
[2017-07-30] MEDS: APIXABAN 5 MG TABLET PO SCH ×2 (09:32→20:22)
--- NOTE | 2017-07-30 13:15 | CONS ---
Date/Time of Note Date/Time of Note DATE: 07/30/17 TIME: 13:11 Assessment/Plan Assessment/Plan Chief Complaint/Hosp Course IMPRESSION: 1. Preoperative evaluation prior to possible surgical vascular intervention.- negative trop x3 2. Hypertension. 3. Dyslipidemia. 4. Abnormal electrocardiogram with nonspecific ST and T-wave abnormalities. 5. Left lower extremity deep venous thrombosis status post inferior vena cava filter, on Coumadin. post-op s/p placement of perfusion/lysis catheter ninto LE bilateral 6. Chronic obstructive pulmonary disease. 7. 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 Tachycardia-? S Tach Recc: -Now on tele -s/p removal of perfusion catheter -Continue statin -Continue eliquis -Follow volume status closely and will start gentle lasix diuresis -low dose BB as tolerated and check 12 lead ecg Problems: Consultation Date/Type/Reason Admit Date/Time Jul 21, 2017 at 23:03 Initial Consult Date 07/23/17 Type of Consultation: cardiology Reason for Consultation tachycardia Referring Provider: MATT MCCULLOUGH MD Exam/Review of Systems Vital Signs Vitals Vital Signs Date Time Temp Pulse Resp B/P Pulse Ox O2 Delivery O2 Flow Rate FiO2 07/30/17 12:24 103 20 93 21 07/30/17 08:00 98.1 97/59 07/29/17 08:57 Room Air Intake and Output 07/29/17 07/29/17 07/30/17 15:00 23:00 07:00 Intake Total 840 ml 480 ml Output Total 900 ml 300 ml Balance -60 ml 180 ml Exam Review of Systems: CONSTITUTIONAL: No fevers, chills. PULMONARY: No sob CARDIOVASCULAR: No chest pain/palpitations GASTROINTESTINAL: No nausea/vomiting. GENITOURINARY: No hematuria/dysuria. MUSCULOSKELETAL: No myagias/arthalgias. PSYCHIATRIC: The patient denies depression. NEUROLOGIC: No weakness Constitutional: alert Psych: no complaints Head: normocephalic ENMT: mucosa pink and moist Neck: jvd (9 cm water), supple Respiratory: diminished breath sounds (at bases/B) Cardiovascular: regular rate and rhythm Gastrointestinal: non-tender, soft Musculoskeletal: muscle weakness (mild generalized) Extremities: pitting pedal edema (R>L) Neurological: other (No focal deficits) Results Result Diagram: 07/30/17 0545 07/30/17 0545 Results 24 hrs Laboratory Tests Test 07/30/17 05:45 White Blood Count 13.3 #H Red Blood Count 3.57 L Hemoglobin 9.7 L Hematocrit 30.3 L Mean Corpuscular Volume 84.9 Mean Corpuscular Hemoglobin 27.2 L Mean Corpuscular Hemoglobin Concent 32.0 Red Cell Distribution Width 14.4 Platelet Count 305 Mean Platelet Volume 9.5 Neutrophils % 74.2 Lymphocytes % 8.8 L Monocytes % 13.3 H Eosinophils % 1.9 Basophils % 0.4 Nucleated Red Blood Cells % 0.0 Neutrophils # 9.9 H Lymphocytes # 1.2 Monocytes # 1.8 H Eosinophils # 0.3 Basophils # 0.1 Nucleated Red Blood Cells # 0.0 Sodium Level 137 Potassium Level 4.1 Chloride Level 102 Carbon Dioxide Level 28 Anion Gap 11 Blood Urea Nitrogen 18 Creatinine 0.81 Glucose Level 110 Calcium Level 9.1 Medications Medications Current Medications Dutasteride (Avodart) 0.5 mg DAILY PO Last administered on 07/30/17 09:31; Admin Dose 0.5 MG; Start 07/22/17 at 09:00 Gabapentin (Neurontin) 300 mg QHS PO Last administered on 07/29/17 20:34; Admin Dose 300 MG; Start 07/22/17 at 21:00 Salmeterol Xinafoate/ Fluticasone (Advair 250/50 Diskus) 1 inh BID INH Last administered on 07/30/17 09:31; Admin Dose 1 INH; Start 07/22/17 at 09:00 Atorvastatin Calcium (Lipitor) 10 mg QAM PO Last administered on 07/30/17 09: 32; Admin Dose 10 MG; Start 07/22/17 at 09:00 Acetaminophen (Tylenol Tab) 650 mg QID PRN PO PAIN LEVEL 1-5; Start 07/21/17 at 23:30 Ondansetron HCl (Zofran Inj) 4 mg Q6H PRN IV NAUSEA AND/OR VOMITING Last administered on 07/26/17 21:10; Admin Dose 4 MG; Start 07/21/17 at 23:30 Acetaminophen/ Hydrocodone Bitart ([place] (5/325)) 1 tab Q4H PRN PO PAIN LEVEL 4 -7 Last administered on 07/29/17 21:58; Admin Dose 1 TAB; Start 07/21/17 at 23:30 Hydromorphone HCl (Dilaudid) 1 mg Q3H PRN IV PAIN Last administered on 11:59; Admin Dose 1 MG; Start 07/23/17 at 22:00 Famotidine (Pepcid) 20 mg BID PO Last administered on 07/30/17 09:32; Admin Dose 20 MG; Start 07/26/17 at 21:00 Apixaban (Eliquis) 10 mg BID PO Last administered on 07/30/17 09:32; Admin Dose 10 MG; Start 07/27/17 at 13:00 Metoprolol Tartrate (Lopressor) 12.5 mg BID PO Last administered on 07/29/17 09:00; Admin Dose 12.5 MG; Start 07/27/17 at 21:00 Docusate Sodium (Colace) 100 mg BID PO Last administered on 07/30/17 09:32; Admin Dose 100 MG; Start 07/28/17 at 21:00 Polyethylene Glycol (Miralax) 17 gm PRN PRN PO CONSTIPATION Last administered on 07/30/17 07:01; Admin Dose 17 GM; Start 07/28/17 at 15:00 AIMEE LANDEROS Jul 30, 2017 13:15
[2017-07-30] MEDS ORDERED: FUROSEMIDE 20 MG INJ IV ONE (13:30)
[2017-07-30 14:31] VITALS: BP 113/66; RESP 18
[2017-07-30 14:58] VITALS: BP 102/53; PULSE 111
--- NOTE | 2017-07-30 16:47 | PN ---
Date/Time of Note Date/Time of Note DATE: 07/30/17 TIME: 16:42 Assessment/Plan VTE Prophylaxis VTE Prophylaxis Intervention: SCD's Lines/Catheters IV [facility] (from [facility] [place] Urinary Cath still in place: No Assessment/Plan Chief Complaint/Hosp Course Patient complains of constipation, complains of right lower extremity edema, pain is well controlled. Patient denies any fever denies any nausea vomiting. Slightly tachycardic, no fever, Metoprolol was held *2 doses, will change albuterol breathing treatment to as needed, will check chest x-ray. Assessment/Plan Right lower extremity pain, continue [place] and morphine as needed for pain. 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 Mendiola is following in vascular surgery consultation. S/p thrombectomy. Status post TPN and heparin drip. Patient is currently on Eliquis. Dr. Short is following in cardiology consultation Hypercoagulation, Dr Amaya is following in hematology consultation. Left leg DVT COPD Dyslipidemia Further recommendations based on clinical course. Plan of care discussed with Dr. Drake Problems: Exam/Review of Systems Vital Signs Vitals Vital Signs Date Time Temp Pulse Resp B/P Pulse Ox O2 Delivery O2 Flow Rate FiO2 07/30/17 16:27 112 22 94 21 07/30/17 14:58 102/53 07/30/17 14:31 98.1 07/29/17 08:57 Room Air Intake and Output 07/29/17 07/29/17 07/30/17 15:00 23:00 07:00 Intake Total 840 ml 480 ml Output Total 900 ml 300 ml Balance -60 ml 180 ml Exam Constitutional: alert, oriented Neck: supple Respiratory: normal air movement Cardiovascular: nl pulses Gastrointestinal: non-tender, soft Musculoskeletal: nl extremities to inspection Extremities: normal pulses Results Result Diagram: 07/30/17 0545 07/30/17 0545 Results 24 hrs Laboratory Tests Test 07/30/17 05:45 White Blood Count 13.3 #H Red Blood Count 3.57 L Hemoglobin 9.7 L Hematocrit 30.3 L Mean Corpuscular Volume 84.9 Mean Corpuscular Hemoglobin 27.2 L Mean Corpuscular Hemoglobin Concent 32.0 Red Cell Distribution Width 14.4 Platelet Count 305 Mean Platelet Volume 9.5 Neutrophils % 74.2 Lymphocytes % 8.8 L Monocytes % 13.3 H Eosinophils % 1.9 Basophils % 0.4 Nucleated Red Blood Cells % 0.0 Neutrophils # 9.9 H Lymphocytes # 1.2 Monocytes # 1.8 H Eosinophils # 0.3 Basophils # 0.1 Nucleated Red Blood Cells # 0.0 Sodium Level 137 Potassium Level 4.1 Chloride Level 102 Carbon Dioxide Level 28 Anion Gap 11 Blood Urea Nitrogen 18 Creatinine 0.81 Glucose Level 110 Calcium Level 9.1 Medications Medications Current Medications Dutasteride (Avodart) 0.5 mg DAILY PO Last administered on 07/30/17 09:31; Admin Dose 0.5 MG; Start 07/22/17 at 09:00 Gabapentin (Neurontin) 300 mg QHS PO Last administered on 07/29/17 20:34; Admin Dose 300 MG; Start 07/22/17 at 21:00 Salmeterol Xinafoate/ Fluticasone (Advair 250/50 Diskus) 1 inh BID INH Last administered on 07/30/17 09:31; Admin Dose 1 INH; Start 07/22/17 at 09:00 Atorvastatin Calcium (Lipitor) 10 mg QAM PO Last administered on 07/30/17 09: 32; Admin Dose 10 MG; Start 07/22/17 at 09:00 Acetaminophen (Tylenol Tab) 650 mg QID PRN PO PAIN LEVEL 1-5; Start 07/21/17 at 23:30 Ondansetron HCl (Zofran Inj) 4 mg Q6H PRN IV NAUSEA AND/OR VOMITING Last administered on 07/26/17 21:10; Admin Dose 4 MG; Start 07/21/17 at 23:30 Acetaminophen/ Hydrocodone Bitart ([place] (5/325)) 1 tab Q4H PRN PO PAIN LEVEL 4 -7 Last administered on 07/29/17 21:58; Admin Dose 1 TAB; Start 07/21/17 at 23:30 Hydromorphone HCl (Dilaudid) 1 mg Q3H PRN IV PAIN Last administered on 15:00; Admin Dose 1 MG; Start 07/23/17 at 22:00 Famotidine (Pepcid) 20 mg BID PO Last administered on 07/30/17 09:32; Admin Dose 20 MG; Start 10/21/17 at 21:00 Apixaban (Eliquis) 10 mg BID PO Last administered on 07/30/17 09:32; Admin Dose 10 MG; Start 07/27/17 at 13:00 Metoprolol Tartrate (Lopressor) 12.5 mg BID PO Last administered on 07/29/17 09:00; Admin Dose 12.5 MG; Start 07/27/17 at 21:00 Docusate Sodium (Colace) 100 mg BID PO Last administered on 07/30/17 09:32; Admin Dose 100 MG; Start 07/28/17 at 21:00 Polyethylene Glycol (Miralax) 17 gm PRN PRN PO CONSTIPATION Last administered on 07/30/17 07:01; Admin Dose 17 GM; Start 07/28/17 at 15:00 LISETTE MEDINA Jul 30, 2017 16:47
[2017-07-30] MEDS ORDERED: ALBUTEROL/IPRATROPIUM (NEB) 3 ML AMP HHN PRN (17:00)
--- NOTE | 2017-07-30 17:33 | RADRPT ---
PROCEDURE: XR Chest. CLINICAL INDICATION: Shortness of breath. TECHNIQUE: Single frontal view. COMPARISON: 07/24/2017. FINDINGS: There is a benign calcified granuloma in the right upper lobe. The lungs are otherwise clear. The heart size is normal. There is no pleural effusion. There is no pneumothorax. IMPRESSION: 1. Benign calcified granuloma in the right upper lobe. 2. Otherwise normal chest x-ray. 3. No change from 07/24/2017. RPTAT: QQ .Dada Ortiz MD, MD Date Time Electronically viewed and signed by .Dada Ortiz MD, on 07/30/2017 17:32 .R/
[2017-07-30] MEDS: SENNA TAB PO PRN (18:13)
[2017-07-30 19:25] VITALS: BP 136/65; RESP 20
[2017-07-30] MEDS: MINERAL OIL 30ML CUP PO SCH (20:23)
[2017-07-30] MEDS: GABAPENTIN 300 MG CAP PO SCH (20:23)
[2017-07-30 21:30] VITALS: PULSE 107
[2017-07-30] MEDS: ZOLPIDEM 5 MG TAB PO PRN (22:56)
[2017-07-31 02:30] VITALS: BP 92/64; RESP 20
[2017-07-31] MEDS: HYDROmorphONE 1 MG/ML SYG IV PRN ×3 (02:34→19:55)
[2017-07-31 03:34] VITALS: PULSE 115
[2017-07-31] MEDS: HYDROCODONE/APAP (5/325) TAB PO PRN ×3 (04:44→22:28)
[2017-07-31 05:58] LABS: ABNORMAL IP MESSAGE 1; BASOPHILS % 0.2 % (0.0-2.0); EOSINOPHILS # 0.1 10^3/ul (0.0-0.5); EOSINOPHILS % 0.3 % (0.0-7.0); HEMOGLOBIN 9.6 g/dl (14.0-18.0); LYMPHOCYTES # 1.1 10^3/ul (0.8-2.9); LYMPHOCYTES % 6.3 % (15.0-51.0); MEAN CORPUSCULAR HEMOGLOBIN 26.7 pg (29.0-33.0); MEAN CORPUSCULAR VOLUME 83.6 fl (82.0-101.0); MEAN PLATELET VOLUME 9.7 fl (7.4-10.4); MONOCYTE # 1.9 10^3/ul (0.3-0.9); MONOCYTES % 10.8 % (0.0-11.0); NEUTROPHIL # 13.9 10^3/ul (1.6-7.5); PLATELET COUNT 319 10^3/UL (140-415); POSITIVE DIFF @See below; RED BLOOD COUNT 3.59 10^6/ul (4.70-6.10); RED CELL DISTRIBUTION WIDTH 14.6 % (11.5-14.5); WHITE BLOOD COUNT 17.1 10^3/ul (4.8-10.8)
[2017-07-31 06:34] LABS: CALCIUM 9.2 mg/dl (8.4-10.2); CREATININE 0.96 mg/dl (0.61-1.24); POTASSIUM 4.6 mmol/L (3.5-5.1)
[2017-07-31 07:35] VITALS: BP 107/67; RESP 18
[2017-07-31] MEDS: SALMETEROL/FLUTICASONE 250/50 INHA INH SCH ×2 (09:00→20:27)
[2017-07-31] MEDS ORDERED: IOHEXOL 300MG/ML 150 ML BTL ONE (09:37)
[2017-07-31] MEDS ORDERED: SOD CHLORIDE 0.9% 100 ML ONE (09:37)
[2017-07-31] MEDS: APIXABAN 5 MG TABLET PO SCH ×2 (10:18→20:25)
[2017-07-31] MEDS: METOPROLOL 25 MG TAB PO SCH ×2 (10:18→20:26)
[2017-07-31] MEDS: MINERAL OIL 30ML CUP PO SCH ×2 (10:19→20:26)
[2017-07-31] MEDS: DUTASTERIDE 0.5 MG CAP PO SCH (10:19)
[2017-07-31] MEDS: DOCUSATE SODIUM 100 MG CAP PO SCH ×2 (10:28→20:24)
[2017-07-31] MEDS: ATORVASTATIN 10 MG TAB PO SCH (10:29)
[2017-07-31] MEDS: FAMOTIDINE 20 MG TAB PO SCH ×2 (10:29→20:25)
--- NOTE | 2017-07-31 12:39 | PN ---
Date/Time of Note Date/Time of Note DATE: 07/31/17 TIME: 12:28 Assessment/Plan VTE Prophylaxis VTE Prophylaxis Intervention: other Lines/Catheters IV [facility] Type (from [facility] Saline Lock Urinary Cath still in place: No Assessment/Plan Assessment/Plan -Leukocytosis- afebrile, wbc trended up- will do cultures - ID consult- Dr Faria notified -Right lower extremity pain, continue [place] and morphine as needed for pain. 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 Mendiola is following in vascular surgery consultation. S/p thrombectomy. Status post TPN and heparin drip. - no bleeding reported from any orifices. - Patient is currently on Eliquis. - Dr. Short is following in cardiology consultation -Hypercoagulation, Dr Amaya is following in hematology consultation. -Left leg DVT -COPD -Dyslipidemia Further recommendations based on clinical course. Dr Galan dcd patient from his point. Anticipate arrangements for his wound care. Pls nmake sure his Eliquis is covered by insurance before discharge. Plan of care discussed with Dr. Drake Subjective 24 Hr Interval Summary Free Text/Dictation afebrile, wbc trended up- will do cultures, no bleeding reported from any orifices. Constitutional: other Respiratory: no complaints Cardiovascular: no complaints Gastrointestinal: no complaints Genitourinary: no complaints Musculoskeletal: other (RLE pain) Neurologic: no complaints Exam/Review of Systems Vital Signs Vitals Vital Signs Date Time Temp Pulse Resp B/P Pulse Ox O2 Delivery O2 Flow Rate FiO2 07/31/17 07:35 97.7 102 18 107/67 96 07/30/17 16:27 21 07/29/17 08:57 Room Air Intake and Output 07/30/17 07/30/17 07/31/17 15:00 23:00 07:00 Intake Total 1000 ml 360 ml Output Total 300 ml Balance 1000 ml 60 ml Exam Constitutional: alert, oriented Respiratory: clear to auscultation, normal air movement Cardiovascular: nl pulses, other (ST- HR 101) Gastrointestinal: non-tender, soft Musculoskeletal: other Extremities: normal pulses Neurological: nl mental status, nl speech Results Result Diagram: 07/31/1752507/31/17525 Results 24 hrs Laboratory Tests Test 07/31/17 05:26 White Blood Count 17.1 #H Red Blood Count 3.59 L Hemoglobin 9.6 L Hematocrit 30.0 L Mean Corpuscular Volume 83.6 Mean Corpuscular Hemoglobin 26.7 L Mean Corpuscular Hemoglobin Concent 32.0 Red Cell Distribution Width 14.6 H Platelet Count 319 Mean Platelet Volume 9.7 Neutrophils % 81.0 H Lymphocytes % 6.3 L Monocytes % 10.8 Eosinophils % 0.3 Basophils % 0.2 Nucleated Red Blood Cells % 0.0 Neutrophils # 13.9 H Lymphocytes # 1.1 Monocytes # 1.9 H Eosinophils # 0.1 Basophils # 0.0 Nucleated Red Blood Cells # 0.0 Sodium Level 135 Potassium Level 4.6 Chloride Level 99 Carbon Dioxide Level 26 Anion Gap 15 Blood Urea Nitrogen 27 H Creatinine 0.96 Glucose Level 121 Calcium Level 9.2 Medications Medications Current Medications Dutasteride (Avodart) 0.5 mg DAILY PO Last administered on 07/31/17 10:19; Admin Dose 0.5 MG; Start 07/22/17 at 09:00 Gabapentin (Neurontin) 300 mg QHS PO Last administered on 07/30/17 20:23; Admin Dose 300 MG; Start 07/22/17 at 21:00 Salmeterol Xinafoate/ Fluticasone (Advair 250/50 Diskus) 1 inh BID INH Last administered on 07/30/17 20:22; Admin Dose 1 INH; Start 07/22/17 at 09:00 Atorvastatin Calcium (Lipitor) 10 mg QAM PO Last administered on 07/31/17 10: 29; Admin Dose 10 MG; Start 07/22/17 at 09:00 Acetaminophen (Tylenol Tab) 650 mg QID PRN PO PAIN LEVEL 1-5; Start 07/21/17 at 23:30 Ondansetron HCl (Zofran Inj) 4 mg Q6H PRN IV NAUSEA AND/OR VOMITING Last administered on 07/26/17 21:10; Admin Dose 4 MG; Start 07/21/17 at 23:30 Acetaminophen/ Hydrocodone Bitart ([place] (5/325)) 1 tab Q4H PRN PO PAIN LEVEL 4 -7 Last administered on 07/31/17 10:15; Admin Dose 1 TAB; Start 07/21/17 at 23:30 Hydromorphone HCl (Dilaudid) 1 mg Q3H PRN IV PAIN Last administered on 02:34; Admin Dose 1 MG; Start 07/23/17 at 22:00 Famotidine (Pepcid) 20 mg BID PO Last administered on 07/31/17 10:29; Admin Dose 20 MG; Start 07/26/17 at 21:00 Apixaban (Eliquis) 10 mg BID PO Last administered on 07/31/17 10:18; Admin Dose 10 MG; Start 07/27/17 at 13:00 Metoprolol Tartrate (Lopressor) 12.5 mg BID PO Last administered on 07/31/17 10:18; Admin Dose 12.5 MG; Start 07/27/17 at 21:00 Docusate Sodium (Colace) 100 mg BID PO Last administered on 07/31/17 10:28; Admin Dose 100 MG; Start 07/28/17 at 21:00 Polyethylene Glycol (Miralax) 17 gm PRN PRN PO CONSTIPATION Last administered on 07/30/17 18:13; Admin Dose 17 GM; Start 07/28/17 at 15:00 Senna (Senokot) 1 tab DAILY PRN PO CONSTIPATION Last administered on 18:13; Admin Dose 1 TAB; Start 07/30/17 at 17:00 Mineral Oil (Mineral Oil) 30 ml BID PO Last administered on 07/31/17 10:19; Admin Dose 30 ML; Start 07/30/17 at 21:00 JOSIE CHENG Jul 31, 2017 12:38
[2017-07-31 13:13] VITALS: BP 99/64; RESP 16
--- NOTE | 2017-07-31 13:30 | RADRPT ---
Vent Rate: 122 bpm RR Interval: 0 msec [place] Interval: 132 msec QRS Duration: 78 msec QT Interval: 308 msec QTC Interval: 438 msec P-R-T [place]: 83 - 70 - 76 degrees Sinus tachycardia Otherwise normal ECG Electronically Signed By: Cory Andujar [id number]
--- NOTE | 2017-07-31 13:55 | RADRPT ---
PROCEDURE: XR Chest. CLINICAL INDICATION: Shortness of breath. TECHNIQUE: Single frontal view. COMPARISON: 07/30/2017. FINDINGS: There is a benign calcified granuloma in the right upper lobe. The lungs are otherwise clear. The heart size is normal. Calcification is present in the aorta consistent with atherosclerosis. There is no pleural effusion. There is no pneumothorax. IMPRESSION: 1. Previous granulomatous disease. 2. Atherosclerosis. 3. Otherwise unremarkable chest x-ray. RPTAT: QQ .Dada Ortiz MD, Date Time Electronically viewed and signed by .Dada Ortiz MD, on 07/31/2017 13:55 .R/
--- NOTE | 2017-07-31 15:16 | CONS ---
Date/Time of Note Date/Time of Note DATE: 07/31/17 TIME: 15:15 Assessment/Plan Assessment/Plan Chief Complaint/Hosp Course asked to consult. will be in shortly. thanks Problems: Consultation Date/Type/Reason Admit Date/Time Jul 21, 2017 at 23:03 Initial Consult Date 07/23/17 Type of Consultation: cardiology Referring Provider: MATT MCCULLOUGH MD Exam/Review of Systems Vital Signs Vitals Vital Signs Date Time Temp Pulse Resp B/P Pulse Ox O2 Delivery O2 Flow Rate FiO2 07/31/17 13:13 97.7 63 16 99/64 95 07/30/17 16:27 21 07/29/17 08:57 Room Air Intake and Output 07/30/17 07/30/17 07/31/17 15:00 23:00 07:00 Intake Total 1000 ml 360 ml Output Total 300 ml Balance 1000 ml 60 ml Results Result Diagram: 07/31/17 0526 07/31/17 0526 Results 24 hrs Laboratory Tests Test 07/31/17 05:26 White Blood Count 17.1 #H Red Blood Count 3.59 L Hemoglobin 9.6 L Hematocrit 30.0 L Mean Corpuscular Volume 83.6 Mean Corpuscular Hemoglobin 26.7 L Mean Corpuscular Hemoglobin Concent 32.0 Red Cell Distribution Width 14.6 H Platelet Count 319 Mean Platelet Volume 9.7 Neutrophils % 81.0 H Lymphocytes % 6.3 L Monocytes % 10.8 Eosinophils % 0.3 Basophils % 0.2 Nucleated Red Blood Cells % 0.0 Neutrophils # 13.9 H Lymphocytes # 1.1 Monocytes # 1.9 H Eosinophils # 0.1 Basophils # 0.0 Nucleated Red Blood Cells # 0.0 Sodium Level 135 Potassium Level 4.6 Chloride Level 99 Carbon Dioxide Level 26 Anion Gap 15 Blood Urea Nitrogen 27 H Creatinine 0.96 Glucose Level 121 Calcium Level 9.2 Medications Medications Current Medications Dutasteride (Avodart) 0.5 mg DAILY PO Last administered on 07/31/17 10:19; Admin Dose 0.5 MG; Start 07/22/17 at 09:00 Gabapentin (Neurontin) 300 mg QHS PO Last administered on 07/30/17 20:23; Admin Dose 300 MG; Start 07/22/17 at 21:00 Salmeterol Xinafoate/ Fluticasone (Advair 250/50 Diskus) 1 inh BID INH Last administered on 07/30/17 20:22; Admin Dose 1 INH; Start 07/22/17 at 09:00 Atorvastatin Calcium (Lipitor) 10 mg QAM PO Last administered on 07/31/17 10: 29; Admin Dose 10 MG; Start 07/22/17 at 09:00 Acetaminophen (Tylenol Tab) 650 mg QID PRN PO PAIN LEVEL 1-5; Start 07/21/17 at 23:30 Ondansetron HCl (Zofran Inj) 4 mg Q6H PRN IV NAUSEA AND/OR VOMITING Last administered on 07/26/17 21:10; Admin Dose 4 MG; Start 07/21/17 at 23:30 Acetaminophen/ Hydrocodone Bitart ([place] (5/325)) 1 tab Q4H PRN PO PAIN LEVEL 4 -7 Last administered on 07/31/17 10:15; Admin Dose 1 TAB; Start 07/21/17 at 23:30 Hydromorphone HCl (Dilaudid) 1 mg Q3H PRN IV PAIN Last administered on 02:34; Admin Dose 1 MG; Start 07/23/17 at 22:00 Famotidine (Pepcid) 20 mg BID PO Last administered on 07/31/17 10:29; Admin Dose 20 MG; Start 07/26/17 at 21:00 Apixaban (Eliquis) 10 mg BID PO Last administered on 07/31/17 10:18; Admin Dose 10 MG; Start 07/27/17 at 13:00 Metoprolol Tartrate (Lopressor) 12.5 mg BID PO Last administered on 07/31/17 10:18; Admin Dose 12.5 MG; Start 07/27/17 at 21:00 Docusate Sodium (Colace) 100 mg BID PO Last administered on 07/31/17 10:28; Admin Dose 100 MG; Start 07/28/17 at 21:00 Polyethylene Glycol (Miralax) 17 gm PRN PRN PO CONSTIPATION Last administered on 07/30/17 18:13; Admin Dose 17 GM; Start 07/28/17 at 15:00 Senna (Senokot) 1 tab DAILY PRN PO CONSTIPATION Last administered on 18:13; Admin Dose 1 TAB; Start 07/30/17 at 17:00 Mineral Oil (Mineral Oil) 30 ml BID PO Last administered on 07/31/17t 10:19; Admin Dose 30 ML; Start 07/30/17 at 21:00 DESIREE FERGUSON MD Jul 31, 2017 15:16
--- NOTE | 2017-07-31 15:19 | RADRPT ---
PROCEDURE: CT Chest with contrast. CLINICAL INDICATION: Lung nodule. TECHNIQUE: Helical axial sections were obtained through the chest with intravenous contrast enhanc ement. 90 ml of Omnipaque-300 was used for the intravenous contrast. Coronal and sagittal reforma tted images were obtained from the axial source images. Total exam DLP is 431.97 mGy-cm. CTDIvol is 9.44 mGy. One or more of the following dose reduction techniques were used: Automated exposure con trol, adjustment of the mA and/or kV according to patient size, use of iterative reconstruction tech nique. COMPARISON: Chest x-ray dated 07/30/2017. FINDINGS: Emphysematous changes are present bilaterally with upper lung zone predominance. There is a small bu lla in the left upper lobe medially measuring 2.8 x 1.6 cm. There is no pulmonary airspace or inter stitial disease. Mild scarring is present at the right lung base posteriorly. There is an irregular peripheral mass-like lesion in the right upper lobe laterally measuring 2.5 x 1.1 x 3.5 cm in AP, transverse, and cranial caudal dimensions. A benign calcified granuloma is prese nt in the right upper lobe as seen on chest x-ray measuring 1.1 cm. There is no other pulmonary nodu le or mass lesion. There is right paratracheal lymphadenopathy measuring 1.8 x 1.6 x 2.9 cm in AP, transverse, and cran ial caudal dimensions. There is right inferior paratracheal lymphadenopathy measuring 1.9 x 1.4 x 1. 9 cm. There is no other mediastinal or hilar lymphadenopathy or mass. There is no axillary, supraclavicular, or internal mammary lymphadenopathy. The thoracic aorta is not dilated. The heart size is normal. There is no pleural effusion or pericardial effusion. Images through the upper abdomen demonstrate unremarkable visualized portions of the liver and splee n. There is a right adrenal 1.8 x 1.4 cm nodule with Hounsfield units measuring 25. There is a left adrenal 3.1 x 2.5 cm nodule with Hounsfield units measuring 27. This may have peripheral enhancement . IMPRESSION: 1. Emphysema. 2. Mild scarring in the right lung posteriorly. 3. Irregular peripheral mass-like lesion in the right upper lobe laterally measuring 2.5 x 1.1 x 3. 5 cm. This may be due to neoplasm. 4. Right paratracheal lymphadenopathy. 5. Right adrenal nodule measuring 1.8 x 1.4 cm. Left adrenal nodule measuring 3.1 x 2.5 cm. This ma y be malignant. Correlation with MRI should be considered. 6. Otherwise unremarkable study. RPTAT: QQ .Dada Ortiz MD, Date Time Electronically viewed and signed by .Dada Ortiz MD, on 07/31/2017 15:19 .R/
--- NOTE | 2017-07-31 18:06 | CONS ---
Date/Time of Note Date/Time of Note DATE: 07/31/17 TIME: 18:03 Assessment/Plan Assessment/Plan Chief Complaint/Hosp Course IMPRESSION: 1. Preoperative evaluation prior to possible surgical vascular intervention.- negative trop x3 2. Hypertension. 3. Dyslipidemia. 4. Abnormal electrocardiogram with nonspecific ST and T-wave abnormalities. 5. Left lower extremity deep venous thrombosis status post inferior vena cava filter, on Coumadin. post-op s/p placement of perfusion/lysis catheter ninto LE bilateral 6. Chronic obstructive pulmonary disease. 7. 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 Tachycardia-? S Tach Recc: -Now on tele -s/p removal of perfusion catheter -Continue statin -Continue eliquis -Follow volume status closely and will start gentle lasix diuresis -low dose BB as tolerated - Problems: Consultation Date/Type/Reason Admit Date/Time Jul 21, 2017 at 23:03 Initial Consult Date 07/23/17 Type of Consultation: cardiology Reason for Consultation Pre-op Referring Provider: MATT MCCULLOUGH MD Exam/Review of Systems Vital Signs Vitals Vital Signs Date Time Temp Pulse Resp B/P Pulse Ox O2 Delivery O2 Flow Rate FiO2 07/31/17 13:13 97.7 63 16 99/64 95 07/30/17 16:27 21 07/29/17 08:57 Room Air Intake and Output 07/30/17 07/30/17 07/31/17 15:00 23:00 07:00 Intake Total 1000 ml 360 ml Output Total 300 ml Balance 1000 ml 60 ml Exam Review of Systems: CONSTITUTIONAL: No fevers, chills. PULMONARY: No sob CARDIOVASCULAR: No chest pain/palpitations GASTROINTESTINAL: No nausea/vomiting. GENITOURINARY: No hematuria/dysuria. MUSCULOSKELETAL: No myagias/arthalgias. PSYCHIATRIC: The patient denies depression. NEUROLOGIC: No weakness Constitutional: alert, oriented Psych: no complaints Head: normocephalic ENMT: mucosa pink and moist Neck: jvd (9 cm water), supple Respiratory: diminished breath sounds (at bases/B) Cardiovascular: regular rate and rhythm Gastrointestinal: non-tender, soft Musculoskeletal: muscle weakness (mild generalized) Extremities: pitting pedal edema (R>L) Neurological: other (No focal deficits) Results Result Diagram: 07/31/1752507/31/17525 Results 24 hrs Laboratory Tests Test 07/31/17 05:26 White Blood Count 17.1 #H Red Blood Count 3.59 L Hemoglobin 9.6 L Hematocrit 30.0 L Mean Corpuscular Volume 83.6 Mean Corpuscular Hemoglobin 26.7 L Mean Corpuscular Hemoglobin Concent 32.0 Red Cell Distribution Width 14.6 H Platelet Count 319 Mean Platelet Volume 9.7 Neutrophils % 81.0 H Lymphocytes % 6.3 L Monocytes % 10.8 Eosinophils % 0.3 Basophils % 0.2 Nucleated Red Blood Cells % 0.0 Neutrophils # 13.9 H Lymphocytes # 1.1 Monocytes # 1.9 H Eosinophils # 0.1 Basophils # 0.0 Nucleated Red Blood Cells # 0.0 Sodium Level 135 Potassium Level 4.6 Chloride Level 99 Carbon Dioxide Level 26 Anion Gap 15 Blood Urea Nitrogen 27 H Creatinine 0.96 Glucose Level 121 Calcium Level 9.2 Medications Medications Current Medications Dutasteride (Avodart) 0.5 mg DAILY PO Last administered on 07/31/17 10:19; Admin Dose 0.5 MG; Start 07/22/17 at 09:00 Gabapentin (Neurontin) 300 mg QHS PO Last administered on 07/30/17 20:23; Admin Dose 300 MG; Start 07/22/17 at 21:00 Salmeterol Xinafoate/ Fluticasone (Advair 250/50 Diskus) 1 inh BID INH Last administered on 07/30/17 20:22; Admin Dose 1 INH; Start 07/22/17 at 09:00 Atorvastatin Calcium (Lipitor) 10 mg QAM PO Last administered on 07/31/17 10: 29; Admin Dose 10 MG; Start 07/22/17 at 09:00 Acetaminophen (Tylenol Tab) 650 mg QID PRN PO PAIN LEVEL 1-5; Start 07/21/17 at 23:30 Ondansetron HCl (Zofran Inj) 4 mg Q6H PRN IV NAUSEA AND/OR VOMITING Last administered on 07/26/17 21:10; Admin Dose 4 MG; Start 07/21/17 at 23:30 Acetaminophen/ Hydrocodone Bitart ([place] (5/325)) 1 tab Q4H PRN PO PAIN LEVEL 4 -7 Last administered on 07/31/17 10:15; Admin Dose 1 TAB; Start 07/21/17 at 23:30 Hydromorphone HCl (Dilaudid) 1 mg Q3H PRN IV PAIN Last administered on 15:28; Admin Dose 1 MG; Start 07/23/17 at 22:00 Famotidine (Pepcid) 20 mg BID PO Last administered on 07/31/17 10:29; Admin Dose 20 MG; Start 07/26/17 at 21:00 Apixaban (Eliquis) 10 mg BID PO Last administered on 07/31/17 10:18; Admin Dose 10 MG; Start 07/27/17 at 13:00 Metoprolol Tartrate (Lopressor) 12.5 mg BID PO Last administered on 07/31/17 10:18; Admin Dose 12.5 MG; Start 07/27/17 at 21:00 Docusate Sodium (Colace) 100 mg BID PO Last administered on 07/31/17 10:28; Admin Dose 100 MG; Start 07/28/17 at 21:00 Polyethylene Glycol (Miralax) 17 gm PRN PRN PO CONSTIPATION Last administered on 07/30/17 18:13; Admin Dose 17 GM; Start 07/28/17 at 15:00 Senna (Senokot) 1 tab DAILY PRN PO CONSTIPATION Last administered on 18:13; Admin Dose 1 TAB; Start 07/30/17 at 17:00 Mineral Oil (Mineral Oil) 30 ml BID PO Last administered on 07/31/17 10:19; Admin Dose 30 ML; Start 07/30/17 at 21:00 AIMEE LANDEROS Jul 31, 2017 18:05
[2017-07-31 20:00] VITALS: BP 114/63; RESP 18
[2017-07-31] MEDS: GABAPENTIN 300 MG CAP PO SCH (20:25)
[2017-07-31] MEDS: SENNA TAB PO PRN (20:25)
[2017-07-31] MEDS: POLYETHYLENE GLYCOL 17 GM PACKET PO PRN (20:26)
[2017-07-31] MEDS: ZOLPIDEM 5 MG TAB PO PRN (22:27)
[2017-08-01 02:00] VITALS: BP 109/65; RESP 20
[2017-08-01] MEDS: HYDROmorphONE 1 MG/ML SYG IV PRN ×5 (06:09→22:02)
[2017-08-01 06:46] LABS: ABNORMAL IP MESSAGE 1; BASOPHILS % 0.2 % (0.0-2.0); EOSINOPHILS # 0.2 10^3/ul (0.0-0.5); EOSINOPHILS % 1.1 % (0.0-7.0); HEMATOCRIT 29.3 % (42.0-52.0); HEMOGLOBIN 9.3 g/dl (14.0-18.0); LYMPHOCYTES # 1.1 10^3/ul (0.8-2.9); LYMPHOCYTES % 8.2 % (15.0-51.0); MEAN CORPUSCULAR HGB CONC 31.7 g/dl (32.0-37.0); MEAN CORPUSCULAR VOLUME 84.9 fl (82.0-101.0); MEAN PLATELET VOLUME 9.8 fl (7.4-10.4); MONOCYTE # 1.7 10^3/ul (0.3-0.9); MONOCYTES % 12.3 % (0.0-11.0); NEUTROPHIL # 10.7 10^3/ul (1.6-7.5); NEUTROPHILS % 77.1 % (39.0-77.0); PLATELET COUNT 410 10^3/UL (140-415); POSITIVE DIFF @See below; RED BLOOD COUNT 3.45 10^6/ul (4.70-6.10); RED CELL DISTRIBUTION WIDTH 14.5 % (11.5-14.5); WHITE BLOOD COUNT 13.9 10^3/ul (4.8-10.8)
[2017-08-01 07:04] LABS: CALCIUM 9.4 mg/dl (8.4-10.2); CREATININE 0.85 mg/dl (0.61-1.24); POTASSIUM 4.5 mmol/L (3.5-5.1)
[2017-08-01 07:48] VITALS: BP 106/65; PULSE 105; RESP 20
[2017-08-01] MEDS: HYDROCODONE/APAP (5/325) TAB PO PRN ×2 (08:21→20:08)
--- NOTE | 2017-08-01 08:58 | CONS ---
Date/Time of Note Date/Time of Note DATE: 08/01/17 TIME: 08:53 Assessment/Plan Assessment/Plan Chief Complaint/Hosp Course #RUL Lung mass with hilar adenopathy -given CT findings there is increased concern for lung cancer, especially given his smoking history -the CT findings were discussed in detail with the patient who understands he will need a biopsy to rule out cancer -CT Guided biopsy of lung mass scheduled for friday -will need to dc eliquis and start heparin gtt at this time for bx on friday #Bilateral lower extremity deep vein thrombosis- pt is now s/p thrombectomy of bilateral lower extremities with heparin and TPA being administered through bilateral sheaths. -currently on Eliquis which we will hold for bx -transition to heparin gtt now -Status post IVC filter placement -hypercoag workup negative. 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 Pt likely having thromboemboli form this aneurism -continue Plavix Problems: Consultation Date/Type/Reason Admit Date/Time Jul 21, 2017 at 23:03 Initial Consult Date 07/23/17 Type of Consultation: oncology Reason for Consultation lung mass Referring Provider: MATT MCCULLOUGH MD 24 HR Interval Summary Free Text/Dictation pt continues on Eliquis. CT was done which demonstrated a lung mass. we have been called to r/o malignancy. pt continues on Eliquis. Exam/Review of Systems Vital Signs Vitals Vital Signs Date Time Temp Pulse Resp B/P Pulse Ox O2 Delivery O2 Flow Rate FiO2 08/01/17 07:48 97.9 105 20 106/65 94 07/30/17 16:27 21 07/29/17 08:57 Room Air Intake and Output 07/31/17 07/31/17 08/01/17 15:00 23:00 07:00 Intake Total 620 ml 480 ml Output Total 500 ml 550 ml Balance 120 ml -70 ml Exam Constitutional: alert, oriented Psych: no complaints Head: normocephalic Eyes: nl conjunctiva ENMT: nl external ears & nose Neck: non-tender, supple Respiratory: clear to auscultation Cardiovascular: regular rate and rhythm Gastrointestinal: soft Musculoskeletal: nl extremities to inspection, nl gait and stance Results Result Diagram: 10/27/17 0623 10/27/17 0623 Results 24 hrs Laboratory Tests Test 08/01/17 06:23 White Blood Count 13.9 H Red Blood Count 3.45 L Hemoglobin 9.3 L Hematocrit 29.3 L Mean Corpuscular Volume 84.9 Mean Corpuscular Hemoglobin 27.0 L Mean Corpuscular Hemoglobin Concent 31.7 L Red Cell Distribution Width 14.5 Platelet Count 410 # Mean Platelet Volume 9.8 Neutrophils % 77.1 H Lymphocytes % 8.2 L Monocytes % 12.3 H Eosinophils % 1.1 Basophils % 0.2 Nucleated Red Blood Cells % 0.0 Neutrophils # 10.7 H Lymphocytes # 1.1 Monocytes # 1.7 H Eosinophils # 0.2 Basophils # 0.0 Nucleated Red Blood Cells # 0.0 Sodium Level 138 Potassium Level 4.5 Chloride Level 100 Carbon Dioxide Level 31 Anion Gap 12 Blood Urea Nitrogen 25 H Creatinine 0.85 Glucose Level 106 Calcium Level 9.4 Medications Medications Current Medications Dutasteride (Avodart) 0.5 mg DAILY PO Last administered on 07/31/17 10:19; Admin Dose 0.5 MG; Start 07/22/17 at 09:00 Gabapentin (Neurontin) 300 mg QHS PO Last administered on 07/31/17 20:25; Admin Dose 300 MG; Start 07/22/17 at 21:00 Salmeterol Xinafoate/ Fluticasone (Advair 250/50 Diskus) 1 inh BID INH Last administered on 07/31/17 20:27; Admin Dose 1 INH; Start 07/22/17 at 09:00 Atorvastatin Calcium (Lipitor) 10 mg QAM PO Last administered on 07/31/17 10: 29; Admin Dose 10 MG; Start 07/22/17 at 09:00 Acetaminophen (Tylenol Tab) 650 mg QID PRN PO PAIN LEVEL 1-5; Start 07/21/17 at 23:30 Ondansetron HCl (Zofran Inj) 4 mg Q6H PRN IV NAUSEA AND/OR VOMITING Last administered on 07/26/17 21:10; Admin Dose 4 MG; Start 07/21/17 at 23:30 Acetaminophen/ Hydrocodone Bitart ([place] (5/325)) 1 tab Q4H PRN PO PAIN LEVEL 4 -7 Last administered on 08/01/17 08:21; Admin Dose 1 TAB; Start 07/21/17 at 23:30 Hydromorphone HCl (Dilaudid) 1 mg Q3H PRN IV PAIN Last administered on 06:09; Admin Dose 1 MG; Start 07/23/17 at 22:00 Famotidine (Pepcid) 20 mg BID PO Last administered on 07/31/17 20:25; Admin Dose 20 MG; Start 07/26/17 at 21:00 Apixaban (Eliquis) 10 mg BID PO Last administered on 07/31/17 20:25; Admin Dose 10 MG; Start 07/27/17 at 13:00 Metoprolol Tartrate (Lopressor) 12.5 mg BID PO Last administered on 07/31/17 20:26; Admin Dose 12.5 MG; Start 07/27/17 at 21:00 Docusate Sodium (Colace) 100 mg BID PO Last administered on 07/31/17 20:24; Admin Dose 100 MG; Start 07/28/17 at 21:00 Polyethylene Glycol (Miralax) 17 gm PRN PRN PO CONSTIPATION Last administered on 07/31/17 20:26; Admin Dose 17 GM; Start 07/28/17 at 15:00 Senna (Senokot) 1 tab DAILY PRN PO CONSTIPATION Last administered on 20:25; Admin Dose 1 TAB; Start 07/30/17 at 17:00 Mineral Oil (Mineral Oil) 30 ml BID PO Last administered on 07/31/17 20:26; Admin Dose 30 ML; Start 07/30/17 at 21:00 Furosemide (Lasix) 20 mg DAILY IV ; Start 08/01/17 at 09:00 AMARA MCINTYRE M.D. Aug 01, 2017 08:58
[2017-08-01] MEDS: METOPROLOL 25 MG TAB PO SCH ×2 (09:00→20:04)
[2017-08-01] MEDS: MINERAL OIL 30ML CUP PO SCH ×2 (09:53→20:04)
[2017-08-01] MEDS: DOCUSATE SODIUM 100 MG CAP PO SCH ×2 (09:53→20:04)
[2017-08-01] MEDS: FAMOTIDINE 20 MG TAB PO SCH ×2 (09:53→20:04)
[2017-08-01] MEDS: ATORVASTATIN 10 MG TAB PO SCH (09:53)
[2017-08-01] MEDS: DUTASTERIDE 0.5 MG CAP PO SCH (09:53)
[2017-08-01] MEDS: SALMETEROL/FLUTICASONE 250/50 INHA INH SCH ×2 (09:54→20:07)
[2017-08-01] MEDS: FUROSEMIDE 20 MG INJ IV SCH (09:55)
[2017-08-01 10:00] VITALS: BP 105/63; PULSE 122
[2017-08-01 10:53] LABS: INR 1.86; PROTIME 21.6 Sec (12.2-14.2); PT RATIO 1.7
[2017-08-01 11:13] VITALS: BMI 19.9
--- NOTE | 2017-08-01 11:27 | CONS ---
Date/Time of Note Date/Time of Note DATE: 08/01/17 TIME: 11:18 Assessment/Plan Assessment/Plan Additional Assessment/Plan CT chest was reviewed which is showing right upper lobe nodule which is completely calcified. However there is a peripheral infiltrate involving the right upper lobe as well. The significance of that at this point is unclear. Assessment and recommendations; 1. 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 2. Incidental discovery of right upper lobe nodule which is completely calcified, the patient is well aware of that for the last several years. 3. Advanced COPD with poor functional status. Patient will need to have PET scan done on outpatient basis. Also I would recommend starting the patient with Zithromax 500 mg orally daily for 1 week. A follow-up CT of the chest is also recommended in about 3 weeks time to ensure resolution of the right upper lobe peripheral infiltrate. A biopsy of the right upper lobe nodule is not recommended at this point. This can be worked up on an outpatient basis. Consultation Date/Type/Reason Admit Date/Time Jul 21, 2017 at 23:03 Date of Consultation: Aug 01, 2017 Type of Consultation: Pulmonary Reason for Consultation Pulmonary consultation requested for evaluation of abnormal CT chest showing lung nodule. Next History of presenting illness; patient is a pleasant 72-year-old white male who was admitted on the of this month with complaints of right lower extremity pain. Patient was diagnosed with multiple DVTs and has undergone vascular surgery evaluate nutrition with declotting. She still complains of mild pain in the right lower extremity. Patient also underwent CT imaging of the chest which is showing a right upper lobe lung nodule and pulmonary consultation has been requested for further evaluation. Patient does complain of significant dyspnea on exertion which has been fairly long complaint. Complains of scant cough without any sputum production or hemoptysis. Complains of rare wheezing. Patient also complains of significant weight loss over the last several months. Past medical history; 1. Patient with a history of COPD. 2. History of DVT with Johanna filter placement with recurrent clotting in right lower extremity. 3. No show any pulmonary embolism. Medications; reviewed. Allergies; penicillin. Social history; patient has a very long-standing history of heavy tobacco abuse. He quit 4 years ago and according to him he was smoking approximately a pack a day at that time. Family history; patient is and has 2 children. 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 Review systems; denies any headache, visual changes, sinus symptoms. Any dysphagia. Any chest pain or angina. Complains of scant cough. Denies any hemoptysis. Complains of occasional wheezing. Does complain of stable dyspnea on exertion. Denies any orthopnea. Denies any abdominal pain, nausea vomiting. Any melena or hematochezia. Denies any lower extremity edema. Right lower extremity pain is improving. Complains of skin bruising. General exam; elderly male, awake alert, currently in no distress. Constitutional: other Eyes: no complaints ENT: no complaints Respiratory: no complaints Cardiovascular: no complaints Gastrointestinal: no complaints Genitourinary: no complaints Musculoskeletal: other (RLE pain) Skin: no complaints Neurologic: no complaints Psychological: no complaints Social History Alcohol Use: none Smoking Status: Former smoker Drug Use: marijuana Exam/Review of Systems Vital Signs Vitals Vital Signs Date Time Temp Pulse Resp B/P Pulse Ox O2 Delivery O2 Flow Rate FiO2 08/01/17 10:00 122 105/63 08/01/17 07:48 97.9 20 94 07/30/17 16:27 21 07/29/17 08:57 Room Air Intake and Output 07/31/17 07/31/17 08/01/17 15:00 23:00 07:00 Intake Total 620 ml 480 ml Output Total 500 ml 550 ml Balance 120 ml -70 ml Exam HEENT exam; supple neck, no JVD. No lymphadenopathy. Midline trachea. No thyromegaly. Pharynx is clear. Patient is edentulous and wears dentures. Chest exam; diminished but clear breath sounds. S1-S2 audible, no murmurs. Regular rhythm. Abdomen exam; soft, no organomegaly. Bowel sounds audible. Nontender. Extremity exam; no peripheral edema. No clubbing. Pulses 1+ bilaterally. 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 Results Result Diagram: 08/01/17 0623 08/01/17 0623 Results 24 hrs Laboratory Tests Test 08/01/17 06:23 08/01/17 10:05 White Blood Count 13.9 H Red Blood Count 3.45 L Hemoglobin 9.3 L Hematocrit 29.3 L Mean Corpuscular Volume 84.9 Mean Corpuscular Hemoglobin 27.0 L Mean Corpuscular Hemoglobin Concent 31.7 L Red Cell Distribution Width 14.5 Platelet Count 410 # Mean Platelet Volume 9.8 Neutrophils % 77.1 H Lymphocytes % 8.2 L Monocytes % 12.3 H Eosinophils % 1.1 Basophils % 0.2 Nucleated Red Blood Cells % 0.0 Neutrophils # 10.7 H Lymphocytes # 1.1 Monocytes # 1.7 H Eosinophils # 0.2 Basophils # 0.0 Nucleated Red Blood Cells # 0.0 Sodium Level 138 Potassium Level 4.5 Chloride Level 100 Carbon Dioxide Level 31 Anion Gap 12 Blood Urea Nitrogen 25 H Creatinine 0.85 Glucose Level 106 Calcium Level 9.4 Prothrombin Time 21.6 #H Prothrombin Time Ratio 1.7 INR International Normalized Ratio 1.86 Activated Partial Thromboplast Time 43.0 H Medications Medications Current Medications Dutasteride (Avodart) 0.5 mg DAILY PO Last administered on 08/01/17 09:53; Admin Dose 0.5 MG; Start 07/22/17 at 09:00 Gabapentin (Neurontin) 300 mg QHS PO Last administered on 07/31/17 20:25; Admin Dose 300 MG; Start 07/22/17 at 21:00 Salmeterol Xinafoate/ Fluticasone (Advair 250/50 Diskus) 1 inh BID INH Last administered on 08/01/17 09:54; Admin Dose 1 INH; Start 07/22/17 at 09:00 Atorvastatin Calcium (Lipitor) 10 mg QAM PO Last administered on 08/01/17 09: 53; Admin Dose 10 MG; Start 07/22/17 at 09:00 Acetaminophen (Tylenol Tab) 650 mg QID PRN PO PAIN LEVEL 1-5; Start 07/21/17 at 23:30 Ondansetron HCl (Zofran Inj) 4 mg Q6H PRN IV NAUSEA AND/OR VOMITING Last administered on 07/26/17 21:10; Admin Dose 4 MG; Start 07/21/17 at 23:30 Acetaminophen/ Hydrocodone Bitart ([place] (5/325)) 1 tab Q4H PRN PO PAIN LEVEL 4 -7 Last administered on 08/01/17 08:21; Admin Dose 1 TAB; Start 07/21/17 at 23:30 Hydromorphone HCl (Dilaudid) 1 mg Q3H PRN IV PAIN Last administered on 09:55; Admin Dose 1 MG; Start 07/23/17 at 22:00 Famotidine (Pepcid) 20 mg BID PO Last administered on 08/01/17 09:53; Admin Dose 20 MG; Start 07/26/17 at 21:00 Metoprolol Tartrate (Lopressor) 12.5 mg BID PO Last administered on 07/31/17 20:26; Admin Dose 12.5 MG; Start 07/27/17 at 21:00 Docusate Sodium (Colace) 100 mg BID PO Last administered on 08/01/17 09:53; Admin Dose 100 MG; Start 07/28/17 at 21:00 Polyethylene Glycol (Miralax) 17 gm PRN PRN PO CONSTIPATION Last administered on 07/31/17 20:26; Admin Dose 17 GM; Start 07/28/17 at 15:00 Senna (Senokot) 1 tab DAILY PRN PO CONSTIPATION Last administered on 20:25; Admin Dose 1 TAB; Start 07/30/17 at 17:00 Mineral Oil (Mineral Oil) 30 ml BID PO Last administered on 08/01/17 09:53; Admin Dose 30 ML; Start 07/30/17 at 21:00 Furosemide (Lasix) 20 mg DAILY IV Last administered on 08/01/17 09:55; Admin Dose 20 MG; Start 08/01/17 at 09:00 Miscellaneous Information (* Miscellaneous Pharmacy Order) DC previous hepa... ONCE ONCE XX ; Start 08/01/17 at 11:30; Stop 08/01/17 at 11:31; Status UNV Heparin Sodium (Porcine) (Heparin (1000 Units/ml)) 6,400 unit ONCE ONCE IV ; Start 08/01/17 at 11:30; Stop 08/01/17 at 11:31; Status UNV RICH RUVALCABA Aug 01, 2017 11:27
[2017-08-01] MEDS ORDERED: HEPARIN 1000 UNITS/ML 10 ML INJ IV ONE ×2 (11:30→20:00)
[2017-08-01] MEDS ORDERED: HEPARIN 1000 UNITS/ML 10 ML INJ IV PRN ×2 (11:30)
[2017-08-01] MEDS: AZITHROMYCIN 250 MG TAB PO SCH (11:51)
[2017-08-01] MEDS: HEPARIN 25000 UNITS/250 ML 250 ML IV SCH (12:34)
--- NOTE | 2017-08-01 12:51 | PN ---
Date/Time of Note Date/Time of Note DATE: 08/01/17 TIME: 12:49 Assessment/Plan VTE Prophylaxis VTE Prophylaxis Intervention: other Lines/Catheters IV [facility]ter [facility]from [facility] Urinary Cath still in place: No Assessment/Plan Chief Complaint/Hosp Course Assessment/Plan -Right lower extremity pain, continue [place] and morphine as needed for pain. 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 Mendiola is following in vascular surgery consultation. S/p thrombectomy. Status post TPN and heparin drip. Continue heparin. Dr. Short is following in cardiology consultation -Right upper lung mass, pending biopsy on Friday -Hypercoagulation, Dr Amaya is following in hematology consultation. -Left leg DVT -COPD -Dyslipidemia Further recommendations based on clinical course. Plan of care discussed with Dr. Drake Problems: Exam/Review of Systems Vital Signs Vitals Vital Signs Date Time Temp Pulse Resp B/P Pulse Ox O2 Delivery O2 Flow Rate FiO2 08/01/17 10:00 122 105/63 08/01/17 07:48 97.9 20 94 07/30/17 16:27 21 07/29/17 08:57 Room Air Intake and Output 07/31/17 07/31/17 08/01/17 15:00 23:00 07:00 Intake Total 620 ml 480 ml Output Total 500 ml 550 ml Balance 120 ml -70 ml Results Result Diagram: 08/01/17 0623 08/01/17 0623 Results 24 hrs Laboratory Tests Test 08/01/17 06:23 08/01/17 10:05 08/01/17 11:43 White Blood Count 13.9 H Red Blood Count 3.45 L Hemoglobin 9.3 L Hematocrit 29.3 L Mean Corpuscular Volume 84.9 Mean Corpuscular Hemoglobin 27.0 L Mean Corpuscular Hemoglobin Concent 31.7 L Red Cell Distribution Width 14.5 Platelet Count 410 # Mean Platelet Volume 9.8 Neutrophils % 77.1 H Lymphocytes % 8.2 L Monocytes % 12.3 H Eosinophils % 1.1 Basophils % 0.2 Nucleated Red Blood Cells % 0.0 Neutrophils # 10.7 H Lymphocytes # 1.1 Monocytes # 1.7 H Eosinophils # 0.2 Basophils # 0.0 Nucleated Red Blood Cells # 0.0 Sodium Level 138 Potassium Level 4.5 Chloride Level 100 Carbon Dioxide Level 31 Anion Gap 12 Blood Urea Nitrogen 25 H Creatinine 0.85 Glucose Level 106 Calcium Level 9.4 Prothrombin Time 21.6 #H Prothrombin Time Ratio 1.7 INR International Normalized Ratio 1.86 Activated Partial Thromboplast Time 43.0 H Lab Scanned Report REFERENCE LAB Medications Medications Current Medications Dutasteride (Avodart) 0.5 mg DAILY PO Last administered on 08/01/17 09:53; Admin Dose 0.5 MG; Start 07/22/17 at 09:00 Gabapentin (Neurontin) 300 mg QHS PO Last administered on 07/31/17 20:25; Admin Dose 300 MG; Start 07/22/17 at 21:00 Salmeterol Xinafoate/ Fluticasone (Advair 250/50 Diskus) 1 inh BID INH Last administered on 08/01/17 09:54; Admin Dose 1 INH; Start 07/22/17 at 09:00 Atorvastatin Calcium (Lipitor) 10 mg QAM PO Last administered on 08/01/17 09: 53; Admin Dose 10 MG; Start 07/22/17 at 09:00 Acetaminophen (Tylenol Tab) 650 mg QID PRN PO PAIN LEVEL 1-5; Start 07/21/17 at 23:30 Ondansetron HCl (Zofran Inj) 4 mg Q6H PRN IV NAUSEA AND/OR VOMITING Last administered on 07/26/17 21:10; Admin Dose 4 MG; Start 07/21/17 at 23:30 Acetaminophen/ Hydrocodone Bitart ([place] (5/325)) 1 tab Q4H PRN PO PAIN LEVEL 4 -7 Last administered on 08/01/17 08:21; Admin Dose 1 TAB; Start 07/21/17 at 23:30 Hydromorphone HCl (Dilaudid) 1 mg Q3H PRN IV PAIN Last administered on 09:55; Admin Dose 1 MG; Start 07/23/17 at 22:00 Famotidine (Pepcid) 20 mg BID PO Last administered on 08/01/17 09:53; Admin Dose 20 MG; Start 07/26/17 at 21:00 Metoprolol Tartrate (Lopressor) 12.5 mg BID PO Last administered on 07/31/17 20:26; Admin Dose 12.5 MG; Start 07/27/17 at 21:00 Docusate Sodium (Colace) 100 mg BID PO Last administered on 08/01/17 09:53; Admin Dose 100 MG; Start 07/28/17 at 21:00 Polyethylene Glycol (Miralax) 17 gm PRN PRN PO CONSTIPATION Last administered on 07/31/17 20:26; Admin Dose 17 GM; Start 07/28/17 at 15:00 Senna (Senokot) 1 tab DAILY PRN PO CONSTIPATION Last administered on 20:25; Admin Dose 1 TAB; Start 07/30/17 at 17:00 Mineral Oil (Mineral Oil) 30 ml BID PO Last administered on 08/01/17 09:53; Admin Dose 30 ML; Start 07/30/17 at 21:00 Furosemide (Lasix) 20 mg DAILY IV Last administered on 08/01/17 09:55; Admin Dose 20 MG; Start 08/01/17 at 09:00 Azithromycin (Zithromax) 500 mg DAILY PO Last administered on 08/01/17 11:51 ; Admin Dose 500 MG; Start 08/01/17 at 11:30 LISETTE MEDINA Aug 01, 2017 12:51
--- NOTE | 2017-08-01 14:34 | CONS ---
Date/Time of Note Date/Time of Note DATE: 08/01/17 TIME: 14:32 Assessment/Plan Assessment/Plan Chief Complaint/Hosp Course IMPRESSION: 1. Preoperative evaluation prior to possible surgical vascular intervention.- negative trop x3 2. Hypertension. 3. Dyslipidemia. 4. Abnormal electrocardiogram with nonspecific ST and T-wave abnormalities. 5. Left lower extremity deep venous thrombosis status post inferior vena cava filter, on Coumadin. post-op s/p placement of perfusion/lysis catheter ninto LE bilateral 6. Chronic obstructive pulmonary disease. 7. 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 Tachycardia-? S Tach 9. Lung mass on CT Recc: -Now on med-surg -Continue statin -Eliquis changed to heparin in anticipation of eval of lung mass -Follow volume status closely and will start gentle lasix diuresis -low dose BB as tolerated Problems: Consultation Date/Type/Reason Admit Date/Time Jul 21, 2017 at 23:03 Initial Consult Date 07/23/17 Type of Consultation: cardiology Reason for Consultation HTN Referring Provider: MATT MCCULLOUGH MD Exam/Review of Systems Vital Signs Vitals Vital Signs Date Time Temp Pulse Resp B/P Pulse Ox O2 Delivery O2 Flow Rate FiO2 08/01/17 10:00 122 105/63 08/01/17 07:48 97.9 20 94 07/30/17 16:27 21 07/29/17 08:57 Room Air Intake and Output 07/31/17 07/31/17 08/01/17 15:00 23:00 07:00 Intake Total 620 ml 480 ml Output Total 500 ml 550 ml Balance 120 ml -70 ml Exam Review of Systems: CONSTITUTIONAL: No fevers, chills. PULMONARY: No sob CARDIOVASCULAR: No chest pain/palpitations GASTROINTESTINAL: No nausea/vomiting. GENITOURINARY: No hematuria/dysuria. MUSCULOSKELETAL: No myagias/arthalgias. PSYCHIATRIC: The patient denies depression. NEUROLOGIC: No weakness Constitutional: alert, oriented Psych: no complaints Head: normocephalic ENMT: mucosa pink and moist Neck: jvd (9 cm water), supple Respiratory: diminished breath sounds (at bases/B) Cardiovascular: regular rate and rhythm Gastrointestinal: non-tender, soft Musculoskeletal: muscle tone (normal) Extremities: pitting pedal edema (R>L) Neurological: other (No focal deficits) Results Result Diagram: 08/01/17 0623 08/01/17 0623 Results 24 hrs Laboratory Tests Test 08/01/17 06:23 08/01/17 10:05 08/01/17 11:43 White Blood Count 13.9 H Red Blood Count 3.45 L Hemoglobin 9.3 L Hematocrit 29.3 L Mean Corpuscular Volume 84.9 Mean Corpuscular Hemoglobin 27.0 L Mean Corpuscular Hemoglobin Concent 31.7 L Red Cell Distribution Width 14.5 Platelet Count 410 # Mean Platelet Volume 9.8 Neutrophils % 77.1 H Lymphocytes % 8.2 L Monocytes % 12.3 H Eosinophils % 1.1 Basophils % 0.2 Nucleated Red Blood Cells % 0.0 Neutrophils # 10.7 H Lymphocytes # 1.1 Monocytes # 1.7 H Eosinophils # 0.2 Basophils # 0.0 Nucleated Red Blood Cells # 0.0 Sodium Level 138 Potassium Level 4.5 Chloride Level 100 Carbon Dioxide Level 31 Anion Gap 12 Blood Urea Nitrogen 25 H Creatinine 0.85 Glucose Level 106 Calcium Level 9.4 Prothrombin Time 21.6 #H Prothrombin Time Ratio 1.7 INR International Normalized Ratio 1.86 Activated Partial Thromboplast Time 43.0 H Lab Scanned Report REFERENCE LAB Medications Medications Current Medications Dutasteride (Avodart) 0.5 mg DAILY PO Last administered on 08/01/17 09:53; Admin Dose 0.5 MG; Start 07/22/17 at 09:00 Gabapentin (Neurontin) 300 mg QHS PO Last administered on 07/31/17 20:25; Admin Dose 300 MG; Start 07/22/17 at 21:00 Salmeterol Xinafoate/ Fluticasone (Advair 250/50 Diskus) 1 inh BID INH Last administered on 08/01/17 09:54; Admin Dose 1 INH; Start 07/22/17 at 09:00 Atorvastatin Calcium (Lipitor) 10 mg QAM PO Last administered on 08/01/17 09: 53; Admin Dose 10 MG; Start 07/22/17 at 09:00 Acetaminophen (Tylenol Tab) 650 mg QID PRN PO PAIN LEVEL 1-5; Start 07/21/17 at 23:30 Ondansetron HCl (Zofran Inj) 4 mg Q6H PRN IV NAUSEA AND/OR VOMITING Last administered on 07/26/17 21:10; Admin Dose 4 MG; Start 07/21/17 at 23:30 Acetaminophen/ Hydrocodone Bitart ([place] (5/325)) 1 tab Q4H PRN PO PAIN LEVEL 4 -7 Last administered on 08/01/17 08:21; Admin Dose 1 TAB; Start 07/21/17 at 23:30 Hydromorphone HCl (Dilaudid) 1 mg Q3H PRN IV PAIN Last administered on 14:29; Admin Dose 1 MG; Start 07/23/17 at 22:00 Famotidine (Pepcid) 20 mg BID PO Last administered on 08/01/17 09:53; Admin Dose 20 MG; Start 07/26/17 at 21:00 Metoprolol Tartrate (Lopressor) 12.5 mg BID PO Last administered on 07/31/17 20:26; Admin Dose 12.5 MG; Start 07/27/17 at 21:00 Docusate Sodium (Colace) 100 mg BID PO Last administered on 08/01/17 09:53; Admin Dose 100 MG; Start 07/28/17 at 21:00 Polyethylene Glycol (Miralax) 17 gm PRN PRN PO CONSTIPATION Last administered on 07/31/17 20:26; Admin Dose 17 GM; Start 07/28/17 at 15:00 Senna (Senokot) 1 tab DAILY PRN PO CONSTIPATION Last administered on 20:25; Admin Dose 1 TAB; Start 07/30/17 at 17:00 Mineral Oil (Mineral Oil) 30 ml BID PO Last administered on 08/01/17 09:53; Admin Dose 30 ML; Start 07/30/17 at 21:00 Furosemide (Lasix) 20 mg DAILY IV Last administered on 08/01/17 09:55; Admin Dose 20 MG; Start 08/01/17 at 09:00 Azithromycin (Zithromax) 500 mg DAILY PO Last administered on 08/01/17 11:51 ; Admin Dose 500 MG; Start 08/01/17 at 11:30 AIMEE LANDEROS Aug 01, 2017 14:34
--- NOTE | 2017-08-01 15:08 | CONS ---
Date/Time of Note Date/Time of Note DATE: 08/01/17 TIME: 15:05 Assessment/Plan Assessment/Plan Chief Complaint/Hosp Course 1. Leukocytosis likely stress related 2. s/p thrombectomy 3. hx of dvt 4. hypercoagulation 5. copd 6. dyslipidemia R: monitor wbc procalcitonin probiotics will follow closely with you thank you for consulting Problems: Consultation Date/Type/Reason Admit Date/Time Jul 21, 2017 at 23:03 Date of Consultation: Aug 01, 2017 Type of Consultation: id Reason for Consultation leukocytosis Referring Provider: JOSIE CHENG Hx of Present Illness Mr. Abel is a 72 yo male with hx of hypercoagulation, dvt, right lower extremity pain, s/p bilateral thrombectomy, with progressive leukocytosis. He has been seen by multiple consultants. He is completing a course of Azithromycin. Constitutional: other Eyes: no complaints ENT: no complaints Respiratory: no complaints Cardiovascular: no complaints Gastrointestinal: no complaints Genitourinary: no complaints Musculoskeletal: other (RLE pain) Skin: no complaints Neurologic: no complaints Psychological: no complaints Social History Alcohol Use: none Smoking Status: Former smoker Drug Use: marijuana Exam/Review of Systems Vital Signs Vitals Vital Signs Date Time Temp Pulse Resp B/P Pulse Ox O2 Delivery O2 Flow Rate FiO2 08/01/17 10:00 122 105/63 08/01/17 07:48 97.9 20 94 07/30/17 16:27 21 07/29/17 08:57 Room Air Intake and Output 07/31/17 07/31/17 08/01/17 15:00 23:00 07:00 Intake Total 620 ml 480 ml Output Total 500 ml 550 ml Balance 120 ml -70 ml Exam Constitutional: alert, oriented, well developed Psych: nl mood/affect, no complaints Head: atraumatic, normocephalic Eyes: EOMI, PERRL, nl conjunctiva, nl lids, nl sclera ENMT: nl external ears & nose, nl lips & teeth, nl nasal mucosa & septum Respiratory: clear to auscultation, normal air movement Cardiovascular: nl pulses, regular rate and rhythm Neurological: DAIRY SPECIALIST II-XII intact, nl mental status, nl speech, nl strength Results Result Diagram: 08/01/17 0623 08/01/17 0623 Results 24 hrs Laboratory Tests Test 08/01/17 06:23 08/01/17 10:05 08/01/17 11:43 White Blood Count 13.9 H Red Blood Count 3.45 L Hemoglobin 9.3 L Hematocrit 29.3 L Mean Corpuscular Volume 84.9 Mean Corpuscular Hemoglobin 27.0 L Mean Corpuscular Hemoglobin Concent 31.7 L Red Cell Distribution Width 14.5 Platelet Count 410 # Mean Platelet Volume 9.8 Neutrophils % 77.1 H Lymphocytes % 8.2 L Monocytes % 12.3 H Eosinophils % 1.1 Basophils % 0.2 Nucleated Red Blood Cells % 0.0 Neutrophils # 10.7 H Lymphocytes # 1.1 Monocytes # 1.7 H Eosinophils # 0.2 Basophils # 0.0 Nucleated Red Blood Cells # 0.0 Sodium Level 138 Potassium Level 4.5 Chloride Level 100 Carbon Dioxide Level 31 Anion Gap 12 Blood Urea Nitrogen 25 H Creatinine 0.85 Glucose Level 106 Calcium Level 9.4 Prothrombin Time 21.6 #H Prothrombin Time Ratio 1.7 INR International Normalized Ratio 1.86 Activated Partial Thromboplast Time 43.0 H Lab Scanned Report REFERENCE LAB Medications Medications Current Medications Dutasteride (Avodart) 0.5 mg DAILY PO Last administered on 08/01/17 09:53; Admin Dose 0.5 MG; Start 07/22/17 at 09:00 Gabapentin (Neurontin) 300 mg QHS PO Last administered on 07/31/17 20:25; Admin Dose 300 MG; Start 07/22/17 at 21:00 Salmeterol Xinafoate/ Fluticasone (Advair 250/50 Diskus) 1 inh BID INH Last administered on 08/01/17 09:54; Admin Dose 1 INH; Start 07/22/17 at 09:00 Atorvastatin Calcium (Lipitor) 10 mg QAM PO Last administered on 08/01/17 09: 53; Admin Dose 10 MG; Start 07/22/17 at 09:00 Acetaminophen (Tylenol Tab) 650 mg QID PRN PO PAIN LEVEL 1-5; Start 07/21/17 at 23:30 Ondansetron HCl (Zofran Inj) 4 mg Q6H PRN IV NAUSEA AND/OR VOMITING Last administered on 07/26/17 21:10; Admin Dose 4 MG; Start 07/21/17 at 23:30 Acetaminophen/ Hydrocodone Bitart ([place] (5/325)) 1 tab Q4H PRN PO PAIN LEVEL 4 -7 Last administered on 08/01/17 08:21; Admin Dose 1 TAB; Start 07/21/17 at 23:30 Hydromorphone HCl (Dilaudid) 1 mg Q3H PRN IV PAIN Last administered on 14:29; Admin Dose 1 MG; Start 07/23/17 at 22:00 Famotidine (Pepcid) 20 mg BID PO Last administered on 08/01/17 09:53; Admin Dose 20 MG; Start 07/26/17 at 21:00 Metoprolol Tartrate (Lopressor) 12.5 mg BID PO Last administered on 07/31/17 20:26; Admin Dose 12.5 MG; Start 07/27/17 at 21:00 Docusate Sodium (Colace) 100 mg BID PO Last administered on 08/01/17 09:53; Admin Dose 100 MG; Start 07/28/17 at 21:00 Polyethylene Glycol (Miralax) 17 gm PRN PRN PO CONSTIPATION Last administered on 07/31/17 20:26; Admin Dose 17 GM; Start 07/28/17 at 15:00 Senna (Senokot) 1 tab DAILY PRN PO CONSTIPATION Last administered on 20:25; Admin Dose 1 TAB; Start 07/30/17 at 17:00 Mineral Oil (Mineral Oil) 30 ml BID PO Last administered on 08/01/17 09:53; Admin Dose 30 ML; Start 07/30/17 at 21:00 Furosemide (Lasix) 20 mg DAILY IV Last administered on 08/01/17 09:55; Admin Dose 20 MG; Start 08/01/17 at 09:00 Azithromycin (Zithromax) 500 mg DAILY PO Last administered on 08/01/17 11:51 ; Admin Dose 500 MG; Start 08/01/17 at 11:30 DESIREE FERGUSON MD Aug 01, 2017 15:08
--- NOTE | 2017-08-01 17:33 | PN ---
Date/Time of Note Date/Time of Note DATE: 08/01/17 TIME: 17:29 Assessment/Plan VTE Prophylaxis VTE Prophylaxis Intervention: other Lines/Catheters [facility] [place] Urinary Cath still in place: No Assessment/Plan Chief Complaint/Hosp Course Patient remains afebrile however complains of the right lower extremity pain with ambulation. Assessment/Plan -Right upper lobe mass. Dr Garay is following in pulmonology consultation. Patient is started on Zithromax with this recommendation for follow-up CT in 3 weeks. -Right lower extremity pain, continue [place] and morphine as needed for pain. 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 Mendiola is following in vascular surgery consultation. S/p thrombectomy. Status post TPN and heparin drip. Continue heparin. Dr. Short is following in cardiology consultation -Right upper lung mass, pending biopsy on Friday -Hypercoagulation work up is neg, Dr Amaya is following in hematology consultation. -Left leg DVT -COPD -Dyslipidemia Further recommendations based on clinical course. Plan of care discussed with Dr. Drake Problems: Exam/Review of Systems Vital Signs Vitals Vital Signs Date Time Temp Pulse Resp B/P Pulse Ox O2 Delivery O2 Flow Rate FiO2 08/01/17 10:00 122 105/63 08/01/17 07:48 97.9 20 94 07/30/17 16:27 21 07/29/17 08:57 Room Air Intake and Output 07/31/17 07/31/17 08/01/17 15:00 23:00 07:00 Intake Total 620 ml 480 ml Output Total 500 ml 550 ml Balance 120 ml -70 ml Exam Constitutional: alert, oriented Neck: supple Respiratory: normal air movement Cardiovascular: nl pulses Gastrointestinal: non-tender, soft Musculoskeletal: nl extremities to inspection Extremities: normal pulses Results Result Diagram: 08/01/17 0623 08/01/17 0623 Results 24 hrs Laboratory Tests Test 08/01/17 06:23 08/01/17 10:05 08/01/17 11:43 White Blood Count 13.9 H Red Blood Count 3.45 L Hemoglobin 9.3 L Hematocrit 29.3 L Mean Corpuscular Volume 84.9 Mean Corpuscular Hemoglobin 27.0 L Mean Corpuscular Hemoglobin Concent 31.7 L Red Cell Distribution Width 14.5 Platelet Count 410 # Mean Platelet Volume 9.8 Neutrophils % 77.1 H Lymphocytes % 8.2 L Monocytes % 12.3 H Eosinophils % 1.1 Basophils % 0.2 Nucleated Red Blood Cells % 0.0 Neutrophils # 10.7 H Lymphocytes # 1.1 Monocytes # 1.7 H Eosinophils # 0.2 Basophils # 0.0 Nucleated Red Blood Cells # 0.0 Sodium Level 138 Potassium Level 4.5 Chloride Level 100 Carbon Dioxide Level 31 Anion Gap 12 Blood Urea Nitrogen 25 H Creatinine 0.85 Glucose Level 106 Calcium Level 9.4 Prothrombin Time 21.6 #H Prothrombin Time Ratio 1.7 INR International Normalized Ratio 1.86 Activated Partial Thromboplast Time 43.0 H Lab Scanned Report REFERENCE LAB Medications Medications Current Medications Dutasteride (Avodart) 0.5 mg DAILY PO Last administered on 08/01/17 09:53; Admin Dose 0.5 MG; Start 07/22/17 at 09:00 Gabapentin (Neurontin) 300 mg QHS PO Last administered on 07/31/17 20:25; Admin Dose 300 MG; Start 07/22/17 at 21:00 Salmeterol Xinafoate/ Fluticasone (Advair 250/50 Diskus) 1 inh BID INH Last administered on 08/01/17 09:54; Admin Dose 1 INH; Start 07/22/17 at 09:00 Atorvastatin Calcium (Lipitor) 10 mg QAM PO Last administered on 08/01/17 09: 53; Admin Dose 10 MG; Start 07/22/17 at 09:00 Acetaminophen (Tylenol Tab) 650 mg QID PRN PO PAIN LEVEL 1-5; Start 07/21/17 at 23:30 Ondansetron HCl (Zofran Inj) 4 mg Q6H PRN IV NAUSEA AND/OR VOMITING Last administered on 07/26/17 21:10; Admin Dose 4 MG; Start 07/21/17 at 23:30 Acetaminophen/ Hydrocodone Bitart ([place] (5/325)) 1 tab Q4H PRN PO PAIN LEVEL 4 -7 Last administered on 08/01/17 08:21; Admin Dose 1 TAB; Start 07/21/17 at 23:30 Hydromorphone HCl (Dilaudid) 1 mg Q3H PRN IV PAIN Last administered on 14:29; Admin Dose 1 MG; Start 07/23/17 at 22:00 Famotidine (Pepcid) 20 mg BID PO Last administered on 08/01/17 09:53; Admin Dose 20 MG; Start 07/26/17 at 21:00 Metoprolol Tartrate (Lopressor) 12.5 mg BID PO Last administered on 07/31/17 20:26; Admin Dose 12.5 MG; Start 07/27/17 at 21:00 Docusate Sodium (Colace) 100 mg BID PO Last administered on 08/01/17 09:53; Admin Dose 100 MG; Start 07/28/17 at 21:00 Polyethylene Glycol (Miralax) 17 gm PRN PRN PO CONSTIPATION Last administered on 07/31/17 20:26; Admin Dose 17 GM; Start 07/28/17 at 15:00 Senna (Senokot) 1 tab DAILY PRN PO CONSTIPATION Last administered on 20:25; Admin Dose 1 TAB; Start 07/30/17 at 17:00 Mineral Oil (Mineral Oil) 30 ml BID PO Last administered on 08/01/17 09:53; Admin Dose 30 ML; Start 07/30/17 at 21:00 Furosemide (Lasix) 20 mg DAILY IV Last administered on 08/01/17 09:55; Admin Dose 20 MG; Start 08/01/17 at 09:00 Azithromycin (Zithromax) 500 mg DAILY PO Last administered on 08/01/17 11:51 ; Admin Dose 500 MG; Start 08/01/17 at 11:30 LISETTE MEDINA Aug 01, 2017 17:33
[2017-08-01 18:50] LABS: INR 1.53; PARTIAL THROMBOPLASTIN TIME 40.9 Sec (25.0-35.0); PROTIME 18.5 Sec (12.2-14.2); PT RATIO 1.4
[2017-08-01 19:31] VITALS: BP 99/64; RESP 20
[2017-08-01] MEDS: GABAPENTIN 300 MG CAP PO SCH (20:04)
[2017-08-01] MEDS: ZOLPIDEM 5 MG TAB PO PRN (22:06)
[2017-08-02 02:00] VITALS: BP 110/65; PULSE 105; RESP 18
[2017-08-02] MEDS: HYDROmorphONE 1 MG/ML SYG IV PRN ×4 (03:48→20:30)
[2017-08-02] MEDS: HYDROCODONE/APAP (5/325) TAB PO PRN ×2 (07:24→18:36)
[2017-08-02 07:29] VITALS: BP 95/55; RESP 18
[2017-08-02] MEDS: HEPARIN 25000 UNITS/250 ML 250 ML IV SCH ×2 (08:41→22:44)
[2017-08-02 08:48] LABS: BASOPHILS % 0.4 % (0.0-2.0); EOSINOPHILS # 0.2 10^3/ul (0.0-0.5); EOSINOPHILS % 1.7 % (0.0-7.0); HEMATOCRIT 27.6 % (42.0-52.0); HEMOGLOBIN 8.7 g/dl (14.0-18.0); LYMPHOCYTES # 1.3 10^3/ul (0.8-2.9); LYMPHOCYTES % 11.2 % (15.0-51.0); MEAN CORPUSCULAR HEMOGLOBIN 26.5 pg (29.0-33.0); MEAN CORPUSCULAR HGB CONC 31.5 g/dl (32.0-37.0); MEAN CORPUSCULAR VOLUME 84.1 fl (82.0-101.0); MEAN PLATELET VOLUME 9.4 fl (7.4-10.4); MONOCYTE # 1.1 10^3/ul (0.3-0.9); MONOCYTES % 9.6 % (0.0-11.0); NEUTROPHIL # 8.5 10^3/ul (1.6-7.5); NEUTROPHILS % 76.2 % (39.0-77.0); PLATELET COUNT 432 10^3/UL (140-415); RED BLOOD COUNT 3.28 10^6/ul (4.70-6.10); RED CELL DISTRIBUTION WIDTH 14.7 % (11.5-14.5); WHITE BLOOD COUNT 11.1 10^3/ul (4.8-10.8)
[2017-08-02] MEDS: MINERAL OIL 30ML CUP PO SCH ×2 (08:48→20:30)
[2017-08-02] MEDS: SALMETEROL/FLUTICASONE 250/50 INHA INH SCH ×2 (08:48→20:30)
[2017-08-02] MEDS: DOCUSATE SODIUM 100 MG CAP PO SCH ×2 (08:49→20:30)
[2017-08-02] MEDS: AZITHROMYCIN 250 MG TAB PO SCH (08:49)
[2017-08-02] MEDS: DUTASTERIDE 0.5 MG CAP PO SCH (08:49)
[2017-08-02] MEDS: ATORVASTATIN 10 MG TAB PO SCH (08:49)
[2017-08-02] MEDS: FAMOTIDINE 20 MG TAB PO SCH ×2 (08:49→20:30)
[2017-08-02] MEDS: FUROSEMIDE 20 MG INJ IV SCH (08:49)
[2017-08-02] MEDS: METOPROLOL 25 MG TAB PO SCH ×2 (08:50→20:34)
[2017-08-02 09:09] LABS: CALCIUM 8.9 mg/dl (8.4-10.2); CREATININE 0.74 mg/dl (0.61-1.24); POTASSIUM 4.3 mmol/L (3.5-5.1)
--- NOTE | 2017-08-02 09:31 | PN ---
Date/Time of Note Date/Time of Note DATE: 08/02/17 TIME: 09:31 Assessment/Plan VTE Prophylaxis VTE Prophylaxis Intervention: other Lines/Catheters IV [facility]from [facility] Peripheral IV Urinary Cath still in place: No Assessment/Plan Chief Complaint/Hosp Course -Right upper lobe mass. Dr Garay is following in pulmonology consultation. Patient is started on Zithromax with this recommendation for follow-up CT in 3 weeks. -Right lower extremity pain, continue [place] and morphine as needed for pain. 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 Mendiola is following in vascular surgery consultation. S/p thrombectomy. Status post TPN and heparin drip. Continue heparin. Dr. Short is following in cardiology consultation -Right upper lung mass, pending biopsy on Friday -Hypercoagulation work up is neg, Dr Amaya is following in hematology consultation. -Left leg DVT -COPD -Dyslipidemia Problems: Subjective 24 Hr Interval Summary Free Text/Dictation Patient complain of pain in bilateral legs Exam/Review of Systems Vital Signs Vitals Vital Signs Date Time Temp Pulse Resp B/P Pulse Ox O2 Delivery O2 Flow Rate FiO2 08/02/17 07:29 98.6 99 18 95/55 95 07/30/17 16:27 21 07/29/17 08:57 Room Air Intake and Output 08/01/17 08/01/17 08/02/17 15:00 23:00 07:00 Intake Total 904 ml 460 ml Output Total 600 ml 500 ml Balance 304 ml -40 ml Exam Constitutional: well developed Head: atraumatic, normocephalic Neck: supple Respiratory: diminished breath sounds Cardiovascular: regular rate and rhythm Gastrointestinal: non-tender, soft Extremities: normal pulses Results Result Diagram: 08/02/1783008/02/1731 Results 24 hrs Laboratory Tests Test 08/01/17 10:05 08/01/17 11:43 08/01/17 17:42 08/02/17 02:16 Prothrombin Time 21.6 #H 18.5 H Prothrombin Time Ratio 1.7 1.4 INR International Normalized Ratio 1.86 1.53 Activated Partial Thromboplast Time 43.0 H 40.9 H 86.8 *H Lab Scanned Report REFERENCE LAB Test 08/02/17 08:31 White Blood Count 11.1 #H Red Blood Count 3.28 L Hemoglobin 8.7 L Hematocrit 27.6 L Mean Corpuscular Volume 84.1 Mean Corpuscular Hemoglobin 26.5 L Mean Corpuscular Hemoglobin Concent 31.5 L Red Cell Distribution Width 14.7 H Platelet Count 432 H Mean Platelet Volume 9.4 Neutrophils % 76.2 Lymphocytes % 11.2 L Monocytes % 9.6 Eosinophils % 1.7 Basophils % 0.4 Nucleated Red Blood Cells % 0.0 Neutrophils # 8.5 H Lymphocytes # 1.3 Monocytes # 1.1 H Eosinophils # 0.2 Basophils # 0.0 Nucleated Red Blood Cells # 0.0 Activated Partial Thromboplast Time 55.3 H Sodium Level 136 Potassium Level 4.3 Chloride Level 96 L Carbon Dioxide Level 28 Anion Gap 16 Blood Urea Nitrogen 17 Creatinine 0.74 Glucose Level 122 Calcium Level 8.9 Medications Medications Current Medications Dutasteride (Avodart) 0.5 mg DAILY PO Last administered on 08/02/17 08:49; Admin Dose 0.5 MG; Start 07/22/17 at 09:00 Gabapentin (Neurontin) 300 mg QHS PO Last administered on 08/01/17 20:04; Admin Dose 300 MG; Start 07/22/17 at 21:00 Salmeterol Xinafoate/ Fluticasone (Advair 250/50 Diskus) 1 inh BID INH Last administered on 08/02/17 08:48; Admin Dose 1 INH; Start 07/22/17 at 09:00 Atorvastatin Calcium (Lipitor) 10 mg QAM PO Last administered on 08/02/17 08: 49; Admin Dose 10 MG; Start 07/22/17 at 09:00 Acetaminophen (Tylenol Tab) 650 mg QID PRN PO PAIN LEVEL 1-5; Start 07/21/17 at 23:30 Ondansetron HCl (Zofran Inj) 4 mg Q6H PRN IV NAUSEA AND/OR VOMITING Last administered on 07/26/17 21:10; Admin Dose 4 MG; Start 07/21/17 at 23:30 Acetaminophen/ Hydrocodone Bitart ([place] (5/325)) 1 tab Q4H PRN PO PAIN LEVEL 4 -7 Last administered on 08/02/17 07:24; Admin Dose 1 TAB; Start 07/21/17 at 23:30 Hydromorphone HCl (Dilaudid) 1 mg Q3H PRN IV PAIN Last administered on 09:02; Admin Dose 1 MG; Start 07/23/17 at 22:00 Famotidine (Pepcid) 20 mg BID PO Last administered on 08/02/17 08:49; Admin Dose 20 MG; Start 07/26/17 at 21:00 Metoprolol Tartrate (Lopressor) 12.5 mg BID PO Last administered on 08/01/17 20:04; Admin Dose 12.5 MG; Start 07/27/17 at 21:00 Docusate Sodium (Colace) 100 mg BID PO Last administered on 08/02/17 08:49; Admin Dose 100 MG; Start 07/28/17 at 21:00 Polyethylene Glycol (Miralax) 17 gm PRN PRN PO CONSTIPATION Last administered on 07/31/17 20:26; Admin Dose 17 GM; Start 07/28/17 at 15:00 Senna (Senokot) 1 tab DAILY PRN PO CONSTIPATION Last administered on 20:25; Admin Dose 1 TAB; Start 07/30/17 at 17:00 Mineral Oil (Mineral Oil) 30 ml BID PO Last administered on 08/02/17 08:48; Admin Dose 30 ML; Start 07/30/17 at 21:00 Furosemide (Lasix) 20 mg DAILY IV Last administered on 08/02/17 08:49; Admin Dose 20 MG; Start 08/01/17 at 09:00 Azithromycin (Zithromax) 500 mg DAILY PO Last administered on 08/02/17 08:49 ; Admin Dose 500 MG; Start 08/01/17 at 11:30 Lorazepam (Ativan) 0.5 mg Q6H PRN IV ANXIETY; Start 08/01/17 at 19:00 MARIE BURK Aug 02, 2017 09:31
--- NOTE | 2017-08-02 11:31 | CONS ---
Date/Time of Note Date/Time of Note DATE: 08/02/17 TIME: 11:30 Consult Date/Type/Reason Admit Date/Time Jul 21, 2017 at 23:03 Initial Consult Date 08/01/17 Type of Consultation: Pulmonary Ordering Provider: JOSIE CHENG Subjective Patient stable. No new events. Objective Vital Signs Date Time Temp Pulse Resp B/P Pulse Ox O2 Delivery O2 Flow Rate FiO2 08/02/17 07:29 98.6 99 18 95/55 95 07/30/17 16:27 21 07/29/17 08:57 Room Air Intake and Output 08/01/17 08/01/17 08/02/17 15:00 23:00 07:00 Intake Total 904 ml 460 ml Output Total 600 ml 500 ml Balance 304 ml -40 ml Exam GENERAL: VITAL SIGNS: per chart NECK: Supple. No JVD or lymphadenopathy. CARDIAC EXAM: S1, S2. No added sounds or murmurs. CHEST: clear bilaterally, No added sounds, rales or wheezes ABDOMEN: Soft, nontender. No guarding or rebound. EXTREMITIES: No cyanosis, clubbing or edema. NEUROLOGIC: Generalized weakness. No focal deficits. Results/Medications Result Diagram: 08/02/1783008/02/1731 Results 24 hrs Laboratory Tests Test 08/01/17 11:43 08/01/17 17:42 08/02/17 02:16 08/02/17 08:31 Lab Scanned Report REFERENCE LAB Prothrombin Time 18.5 H Prothrombin Time Ratio 1.4 INR International Normalized Ratio 1.53 Activated Partial Thromboplast Time 40.9 H 86.8 *H 55.3 H White Blood Count 11.1 #H Red Blood Count 3.28 L Hemoglobin 8.7 L Hematocrit 27.6 L Mean Corpuscular Volume 84.1 Mean Corpuscular Hemoglobin 26.5 L Mean Corpuscular Hemoglobin Concent 31.5 L Red Cell Distribution Width 14.7 H Platelet Count 432 H Mean Platelet Volume 9.4 Neutrophils % 76.2 Lymphocytes % 11.2 L Monocytes % 9.6 Eosinophils % 1.7 Basophils % 0.4 Nucleated Red Blood Cells % 0.0 Neutrophils # 8.5 H Lymphocytes # 1.3 Monocytes # 1.1 H Eosinophils # 0.2 Basophils # 0.0 Nucleated Red Blood Cells # 0.0 Sodium Level 136 Potassium Level 4.3 Chloride Level 96 L Carbon Dioxide Level 28 Anion Gap 16 Blood Urea Nitrogen 17 Creatinine 0.74 Glucose Level 122 Calcium Level 8.9 Medications Current Medications Dutasteride (Avodart) 0.5 mg DAILY PO Last administered on 08/02/17 08:49; Admin Dose 0.5 MG; Start 07/22/17 at 09:00 Gabapentin (Neurontin) 300 mg QHS PO Last administered on 08/01/17 20:04; Admin Dose 300 MG; Start 07/22/17 at 21:00 Salmeterol Xinafoate/ Fluticasone (Advair 250/50 Diskus) 1 inh BID INH Last administered on 08/02/17 08:48; Admin Dose 1 INH; Start 07/22/17 at 09:00 Atorvastatin Calcium (Lipitor) 10 mg QAM PO Last administered on 08/02/17 08: 49; Admin Dose 10 MG; Start 07/22/17 at 09:00 Acetaminophen (Tylenol Tab) 650 mg QID PRN PO PAIN LEVEL 1-5; Start 07/21/17 at 23:30 Ondansetron HCl (Zofran Inj) 4 mg Q6H PRN IV NAUSEA AND/OR VOMITING Last administered on 07/26/17 21:10; Admin Dose 4 MG; Start 07/21/17 at 23:30 Acetaminophen/ Hydrocodone Bitart ([place] (5/325)) 1 tab Q4H PRN PO PAIN LEVEL 4 -7 Last administered on 08/02/17 07:24; Admin Dose 1 TAB; Start 07/21/17 at 23:30 Hydromorphone HCl (Dilaudid) 1 mg Q3H PRN IV PAIN Last administered on 09:02; Admin Dose 1 MG; Start 07/23/17 at 22:00 Famotidine (Pepcid) 20 mg BID PO Last administered on 08/02/17 08:49; Admin Dose 20 MG; Start 07/26/17 at 21:00 Metoprolol Tartrate (Lopressor) 12.5 mg BID PO Last administered on 08/01/17 20:04; Admin Dose 12.5 MG; Start 07/27/17 at 21:00 Docusate Sodium (Colace) 100 mg BID PO Last administered on 08/02/17 08:49; Admin Dose 100 MG; Start 07/28/17 at 21:00 Polyethylene Glycol (Miralax) 17 gm PRN PRN PO CONSTIPATION Last administered on 07/31/17 20:26; Admin Dose 17 GM; Start 07/28/17 at 15:00 Senna (Senokot) 1 tab DAILY PRN PO CONSTIPATION Last administered on 20:25; Admin Dose 1 TAB; Start 07/30/17 at 17:00 Mineral Oil (Mineral Oil) 30 ml BID PO Last administered on 08/02/17 08:48; Admin Dose 30 ML; Start 07/30/17 at 21:00 Furosemide (Lasix) 20 mg DAILY IV Last administered on 08/02/17 08:49; Admin Dose 20 MG; Start 08/01/17 at 09:00 Azithromycin (Zithromax) 500 mg DAILY PO Last administered on 08/02/17 08:49 ; Admin Dose 500 MG; Start 08/01/17 at 11:30 Lorazepam (Ativan) 0.5 mg Q6H PRN IV ANXIETY; Start 08/01/17 at 19:00 Assessment/Plan Chief Complaint/Hosp Course Assessment and recommendations; 1. 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 2. Incidental discovery of right upper lobe nodule which is completely calcified, the patient is well aware of that for the last several years. 3. Advanced COPD with poor functional status. Outpatient pulmonary function testing and PET scan DC planning okay from pulmonary standpoint Problems: JAMES HOSKINS MD, [facility] Aug 02, 2017 11:31
--- NOTE | 2017-08-02 13:49 | CONS ---
Date/Time of Note Date/Time of Note DATE: 08/02/17 TIME: 13:47 Assessment/Plan Assessment/Plan Additional Assessment/Plan 1. DVT s/p declotting 2. Hypertension. 3. Dyslipidemia. 4. Chronic obstructive pulmonary disease. 5. Popliteal artery aneurysm 6. Lung mass on CT Continue Metoprolol Continue IV Heparin Continue Avodart Continue Lipitor Continue Antibiotics Continue GI and DVT Prophylaxis Consultation Date/Type/Reason Admit Date/Time Jul 21, 2017 at 23:03 Constitutional: other Eyes: no complaints ENT: no complaints Respiratory: no complaints Cardiovascular: no complaints Gastrointestinal: no complaints Genitourinary: no complaints Musculoskeletal: other (RLE pain) Skin: no complaints Neurologic: no complaints Psychological: nl mood/affect, no complaints Social History Alcohol Use: none Smoking Status: Former smoker Drug Use: marijuana Exam/Review of Systems Vital Signs Vitals Vital Signs Date Time Temp Pulse Resp B/P Pulse Ox O2 Delivery O2 Flow Rate FiO2 08/02/17 07:29 98.6 99 18 95/55 95 07/30/17 16:27 21 07/29/17 08:57 Room Air Intake and Output 08/01/17 08/01/17 08/02/17 15:00 23:00 07:00 Intake Total 904 ml 460 ml Output Total 600 ml 500 ml Balance 304 ml -40 ml Exam Constitutional: alert, oriented Head: atraumatic, normocephalic Neck: non-tender, supple Respiratory: clear to auscultation Cardiovascular: regular rate and rhythm Gastrointestinal: nl liver, spleen, non-tender, soft Results Result Diagram: 08/02/17 0831 08/02/17 0831 Results 24 hrs Laboratory Tests Test 08/01/17 17:42 08/02/17 02:16 08/02/17 08:31 Prothrombin Time 18.5 H Prothrombin Time Ratio 1.4 INR International Normalized Ratio 1.53 Activated Partial Thromboplast Time 40.9 H 86.8 *H 55.3 H White Blood Count 11.1 #H Red Blood Count 3.28 L Hemoglobin 8.7 L Hematocrit 27.6 L Mean Corpuscular Volume 84.1 Mean Corpuscular Hemoglobin 26.5 L Mean Corpuscular Hemoglobin Concent 31.5 L Red Cell Distribution Width 14.7 H Platelet Count 432 H Mean Platelet Volume 9.4 Neutrophils % 76.2 Lymphocytes % 11.2 L Monocytes % 9.6 Eosinophils % 1.7 Basophils % 0.4 Nucleated Red Blood Cells % 0.0 Neutrophils # 8.5 H Lymphocytes # 1.3 Monocytes # 1.1 H Eosinophils # 0.2 Basophils # 0.0 Nucleated Red Blood Cells # 0.0 Sodium Level 136 Potassium Level 4.3 Chloride Level 96 L Carbon Dioxide Level 28 Anion Gap 16 Blood Urea Nitrogen 17 Creatinine 0.74 Glucose Level 122 Calcium Level 8.9 Medications Medications Current Medications Dutasteride (Avodart) 0.5 mg DAILY PO Last administered on 08/02/17 08:49; Admin Dose 0.5 MG; Start 07/22/17 at 09:00 Gabapentin (Neurontin) 300 mg QHS PO Last administered on 08/01/17 20:04; Admin Dose 300 MG; Start 07/22/17 at 21:00 Salmeterol Xinafoate/ Fluticasone ([place] 250/50 Diskus) 1 inh BID INH Last administered on 08/02/17 08:48; Admin Dose 1 INH; Start 07/22/17 at 09:00 Atorvastatin Calcium (Lipitor) 10 mg QAM PO Last administered on 08/02/17 08: 49; Admin Dose 10 MG; Start 07/22/17 at 09:00 Acetaminophen (Tylenol Tab) 650 mg QID PRN PO PAIN LEVEL 1-5; Start 07/21/17 at 23:30 Ondansetron HCl (Zofran Inj) 4 mg Q6H PRN IV NAUSEA AND/OR VOMITING Last administered on 07/26/17 21:10; Admin Dose 4 MG; Start 07/21/17 at 23:30 Acetaminophen/ Hydrocodone Bitart ([place] (5/325)) 1 tab Q4H PRN PO PAIN LEVEL 4 -7 Last administered on 08/02/17 07:24; Admin Dose 1 TAB; Start 07/21/17 at 23:30 Hydromorphone HCl (Dilaudid) 1 mg Q3H PRN IV PAIN Last administered on 09:02; Admin Dose 1 MG; Start 07/23/17 at 22:00 Famotidine (Pepcid) 20 mg BID PO Last administered on 08/02/17 08:49; Admin Dose 20 MG; Start 07/26/17 at 21:00 Metoprolol Tartrate (Lopressor) 12.5 mg BID PO Last administered on 08/01/17 20:04; Admin Dose 12.5 MG; Start 07/27/17 at 21:00 Docusate Sodium (Colace) 100 mg BID PO Last administered on 08/02/17 08:49; Admin Dose 100 MG; Start 07/28/17 at 21:00 Polyethylene Glycol (Miralax) 17 gm PRN PRN PO CONSTIPATION Last administered on 07/31/17 20:26; Admin Dose 17 GM; Start 07/28/17 at 15:00 Senna (Senokot) 1 tab DAILY PRN PO CONSTIPATION Last administered on 20:25; Admin Dose 1 TAB; Start 07/30/17 at 17:00 Mineral Oil (Mineral Oil) 30 ml BID PO Last administered on 08/02/17 08:48; Admin Dose 30 ML; Start 07/30/17 at 21:00 Furosemide (Lasix) 20 mg DAILY IV Last administered on 08/02/17 08:49; Admin Dose 20 MG; Start 08/01/17 at 09:00 Azithromycin (Zithromax) 500 mg DAILY PO Last administered on 08/02/17 08:49 ; Admin Dose 500 MG; Start 08/01/17 at 11:30 Lorazepam (Ativan) 0.5 mg Q6H PRN IV ANXIETY; Start 08/01/17 at 19:00 JANES DAVIS M.D. Aug 02, 2017 13:49
[2017-08-02 13:52] VITALS: BP 110/65
--- NOTE | 2017-08-02 15:09 | CONS ---
Date/Time of Note Date/Time of Note DATE: 08/02/17 TIME: 15:05 Assessment/Plan Assessment/Plan Additional Assessment/Plan 1. Leukocytosis likely stress related- trended down 2. s/p thrombectomy 3. hx of dvt 4. hypercoagulation 5. copd 6. dyslipidemia R: monitor wbc procalcitonin probiotics will follow closely with you Plan of care jennifer Faria/ RN Consultation Date/Type/Reason Admit Date/Time Jul 21, 2017 at 23:03 Initial Consult Date 08/01/17 Type of Consultation: Pulmonary Referring Provider: JOSIE CHENG 24 HR Interval Summary Free Text/Dictation Remains on Heparin drip, afebrile, WBC trended down, cont to monitor, dw staff Constitutional: requiring IVF Detailed Summary Respiratory: no complaints Cardiovascular: no complaints Gastrointestinal: no complaints Genitourinary: no complaints Musculoskeletal: no complaints Skin: no complaints Exam/Review of Systems Vital Signs Vitals Vital Signs Date Time Temp Pulse Resp B/P Pulse Ox O2 Delivery O2 Flow Rate FiO2 08/02/17 13:52 97.4 102 110/65 98 08/02/17 07:29 18 07/30/17 16:27 21 07/29/17 08:57 Room Air Intake and Output 08/01/17 08/01/17 08/02/17 15:00 23:00 07:00 Intake Total 904 ml 460 ml Output Total 600 ml 500 ml Balance 304 ml -40 ml Exam Constitutional: alert, well developed Respiratory: clear to auscultation Cardiovascular: nl pulses, other (s1s2) Gastrointestinal: soft Musculoskeletal: nl extremities to inspection Results Result Diagram: 08/02/17 0831 08/02/17 0831 Results 24 hrs Laboratory Tests Test 08/01/17 17:42 08/02/17 02:16 08/02/17 08:31 Prothrombin Time 18.5 H Prothrombin Time Ratio 1.4 INR International Normalized Ratio 1.53 Activated Partial Thromboplast Time 40.9 H 86.8 *H 55.3 H White Blood Count 11.1 #H Red Blood Count 3.28 L Hemoglobin 8.7 L Hematocrit 27.6 L Mean Corpuscular Volume 84.1 Mean Corpuscular Hemoglobin 26.5 L Mean Corpuscular Hemoglobin Concent 31.5 L Red Cell Distribution Width 14.7 H Platelet Count 432 H Mean Platelet Volume 9.4 Neutrophils % 76.2 Lymphocytes % 11.2 L Monocytes % 9.6 Eosinophils % 1.7 Basophils % 0.4 Nucleated Red Blood Cells % 0.0 Neutrophils # 8.5 H Lymphocytes # 1.3 Monocytes # 1.1 H Eosinophils # 0.2 Basophils # 0.0 Nucleated Red Blood Cells # 0.0 Sodium Level 136 Potassium Level 4.3 Chloride Level 96 L Carbon Dioxide Level 28 Anion Gap 16 Blood Urea Nitrogen 17 Creatinine 0.74 Glucose Level 122 Calcium Level 8.9 Medications Medications Current Medications Dutasteride (Avodart) 0.5 mg DAILY PO Last administered on 08/02/17 08:49; Admin Dose 0.5 MG; Start 07/22/17 at 09:00 Gabapentin (Neurontin) 300 mg QHS PO Last administered on 08/01/17 20:04; Admin Dose 300 MG; Start 07/22/17 at 21:00 Salmeterol Xinafoate/ Fluticasone (Advair 250/50 Diskus) 1 inh BID INH Last administered on 08/02/17 08:48; Admin Dose 1 INH; Start 07/22/17 at 09:00 Atorvastatin Calcium (Lipitor) 10 mg QAM PO Last administered on 08/02/17 08: 49; Admin Dose 10 MG; Start 07/22/17 at 09:00 Acetaminophen (Tylenol Tab) 650 mg QID PRN PO PAIN LEVEL 1-5; Start 07/21/17 at 23:30 Ondansetron HCl (Zofran Inj) 4 mg Q6H PRN IV NAUSEA AND/OR VOMITING Last administered on 07/26/17 21:10; Admin Dose 4 MG; Start 07/21/17 at 23:30 Acetaminophen/ Hydrocodone Bitart ([place] (5/325)) 1 tab Q4H PRN PO PAIN LEVEL 4 -7 Last administered on 08/02/17 07:24; Admin Dose 1 TAB; Start 07/21/17 at 23:30 Hydromorphone HCl (Dilaudid) 1 mg Q3H PRN IV PAIN Last administered on 09:02; Admin Dose 1 MG; Start 07/23/17 at 22:00 Famotidine (Pepcid) 20 mg BID PO Last administered on 08/02/17 08:49; Admin Dose 20 MG; Start 07/26/17 at 21:00 Metoprolol Tartrate (Lopressor) 12.5 mg BID PO Last administered on 08/01/17 20:04; Admin Dose 12.5 MG; Start 07/27/17 at 21:00 Docusate Sodium (Colace) 100 mg BID PO Last administered on 08/02/17 08:49; Admin Dose 100 MG; Start 07/28/17 at 21:00 Polyethylene Glycol (Miralax) 17 gm PRN PRN PO CONSTIPATION Last administered on 07/31/17 20:26; Admin Dose 17 GM; Start 07/28/17 at 15:00 Senna (Senokot) 1 tab DAILY PRN PO CONSTIPATION Last administered on 20:25; Admin Dose 1 TAB; Start 07/30/17 at 17:00 Mineral Oil (Mineral Oil) 30 ml BID PO Last administered on 08/02/17 08:48; Admin Dose 30 ML; Start 07/30/17 at 21:00 Furosemide (Lasix) 20 mg DAILY IV Last administered on 08/02/17 08:49; Admin Dose 20 MG; Start 08/01/17 at 09:00 Azithromycin (Zithromax) 500 mg DAILY PO Last administered on 08/02/17 08:49 ; Admin Dose 500 MG; Start 08/01/17 at 11:30 Lorazepam (Ativan) 0.5 mg Q6H PRN IV ANXIETY; Start 08/01/17 at 19:00 JOSIE CHENG Aug 02, 2017 15:09
[2017-08-02 19:57] VITALS: BP 97/57; RESP 20
[2017-08-02] MEDS: GABAPENTIN 300 MG CAP PO SCH (20:30)
[2017-08-02] MEDS: LORAZEPAM 2 MG INJ IV PRN (21:36)
[2017-08-03] VITALS (10 sets, daily range): BP systolic 106–120; BP diastolic 58–75; PULSE 97–160; RESP 18–31
[2017-08-03] MEDS: HYDROmorphONE 1 MG/ML SYG IV PRN ×3 (05:26→15:21)
[2017-08-03] MEDS: HYDROCODONE/APAP (5/325) TAB PO PRN ×2 (07:52→16:41)
[2017-08-03] MEDS: MINERAL OIL 30ML CUP PO SCH ×2 (09:00→21:00)
[2017-08-03] MEDS: SALMETEROL/FLUTICASONE 250/50 INHA INH SCH ×2 (09:00→21:00)
[2017-08-03] MEDS: FUROSEMIDE 20 MG INJ IV SCH (09:00)
[2017-08-03] MEDS: ATORVASTATIN 10 MG TAB PO SCH (09:37)
[2017-08-03] MEDS: DOCUSATE SODIUM 100 MG CAP PO SCH ×2 (09:37→21:00)
[2017-08-03] MEDS: FAMOTIDINE 20 MG TAB PO SCH ×2 (09:37→21:00)
[2017-08-03] MEDS: DUTASTERIDE 0.5 MG CAP PO SCH (09:37)
[2017-08-03] MEDS: AZITHROMYCIN 250 MG TAB PO SCH (09:40)
[2017-08-03] MEDS: METOPROLOL 25 MG TAB PO SCH ×2 (09:42→21:00)
--- NOTE | 2017-08-03 10:14 | CONS ---
Date/Time of Note Date/Time of Note DATE: 08/03/17 TIME: 10:12 Consult Date/Type/Reason Admit Date/Time Jul 21, 2017 at 23:03 Initial Consult Date 08/01/17 Type of Consultation: Pulmonary Ordering Provider: JOSEI CHENG Subjective Patient comfortable this morning. Remains stable. Objective Vital Signs Date Time Temp Pulse Resp B/P Pulse Ox O2 Delivery O2 Flow Rate FiO2 08/03/17 08:18 98.7 114 19 106/58 95 07/30/17 16:27 21 Intake and Output 08/02/17 08/02/17 08/03/17 15:00 23:00 07:00 Intake Total 45.5 ml 2250.5 ml 736.5 ml Output Total 960 ml 700 ml Balance 45.5 ml 1290.5 ml 36.5 ml Exam GENERAL: VITAL SIGNS: per chart NECK: Supple. No JVD or lymphadenopathy. CARDIAC EXAM: S1, S2. No added sounds or murmurs. CHEST: clear bilaterally, No added sounds, rales or wheezes ABDOMEN: Soft, nontender. No guarding or rebound. EXTREMITIES: No cyanosis, clubbing or edema. NEUROLOGIC: Generalized weakness. No focal deficits. Results/Medications Result Diagram: 08/02/1783008/02/17830 Results 24 hrs Laboratory Tests Test 08/02/17 16:37 08/02/17 23:29 08/03/17 05:12 Activated Partial Thromboplast Time 100.3 *H 79.5 *H 44.8 H Medications Current Medications Dutasteride (Avodart) 0.5 mg DAILY PO Last administered on 08/03/17 09:37; Admin Dose 0.5 MG; Start 07/22/17 at 09:00 Gabapentin (Neurontin) 300 mg QHS PO Last administered on 08/02/17 20:30; Admin Dose 300 MG; Start 07/22/17 at 21:00 Salmeterol Xinafoate/ Fluticasone (Advair 250/50 Diskus) 1 inh BID INH Last administered on 08/02/17 20:30; Admin Dose 1 INH; Start 07/22/17 at 09:00 Atorvastatin Calcium (Lipitor) 10 mg QAM PO Last administered on 08/03/17 09: 37; Admin Dose 10 MG; Start 07/22/17 at 09:00 Acetaminophen (Tylenol Tab) 650 mg QID PRN PO PAIN LEVEL 1-5; Start 07/21/17 at 23:30 Ondansetron HCl (Zofran Inj) 4 mg Q6H PRN IV NAUSEA AND/OR VOMITING Last administered on 07/26/17 21:10; Admin Dose 4 MG; Start 07/21/17 at 23:30 Acetaminophen/ Hydrocodone Bitart ([place] (5/325)) 1 tab Q4H PRN PO PAIN LEVEL 4 -7 Last administered on 08/03/17 07:52; Admin Dose 1 TAB; Start 07/21/17 at 23:30 Hydromorphone HCl (Dilaudid) 1 mg Q3H PRN IV PAIN Last administered on 05:26; Admin Dose 1 MG; Start 07/23/17 at 22:00 Famotidine (Pepcid) 20 mg BID PO Last administered on 08/03/17 09:37; Admin Dose 20 MG; Start 07/26/17 at 21:00 Metoprolol Tartrate (Lopressor) 12.5 mg BID PO Last administered on 08/03/17 09:42; Admin Dose 12.5 MG; Start 07/27/17 at 21:00 Docusate Sodium (Colace) 100 mg BID PO Last administered on 08/03/17 09:37; Admin Dose 100 MG; Start 07/28/17 at 21:00 Polyethylene Glycol (Miralax) 17 gm PRN PRN PO CONSTIPATION Last administered on 07/31/17 20:26; Admin Dose 17 GM; Start 07/28/17 at 15:00 Senna (Senokot) 1 tab DAILY PRN PO CONSTIPATION Last administered on 20:25; Admin Dose 1 TAB; Start 07/30/17 at 17:00 Mineral Oil (Mineral Oil) 30 ml BID PO Last administered on 08/02/17 20:30; Admin Dose 30 ML; Start 07/30/17 at 21:00 Furosemide (Lasix) 20 mg DAILY IV Last administered on 08/02/17 08:49; Admin Dose 20 MG; Start 08/01/17 at 09:00 Azithromycin (Zithromax) 500 mg DAILY PO Last administered on 08/03/17 09:40 ; Admin Dose 500 MG; Start 08/01/17 at 11:30 Lorazepam (Ativan) 0.5 mg Q6H PRN IV ANXIETY Last administered on 08/02/17t 21 :36; Admin Dose 0.5 MG; Start 08/01/17 at 19:00 Apixaban (Eliquis) 5 mg BID PO ; Start 08/03/17 at 21:00 Assessment/Plan Chief Complaint/Hosp Course Assessment and recommendations; 1. 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 2. Incidental discovery of right upper lobe nodule which is completely calcified, the patient is well aware of that for the last several years. 3. Advanced COPD with poor functional status. Outpatient pulmonary function testing and PET scan DC planning okay from pulmonary standpoint Problems: JAMES HOSKINS MD, [facility] Aug 03, 2017 10:14
--- NOTE | 2017-08-03 10:25 | CONS ---
Date/Time of Note Date/Time of Note DATE: 08/03/17 TIME: 10:13 Assessment/Plan Assessment/Plan Additional Assessment/Plan 1. Leukocytosis likely stress related- trended down today 2. s/p thrombectomy 3. hx of dvt 4. hypercoagulation 5. copd 6. dyslipidemia R: monitor wbc procalcitonin probiotics will follow Plan of care jennifer Faria/ RN Consultation Date/Type/Reason Admit Date/Time Jul 21, 2017 at 23:03 Initial Consult Date 08/01/17 Type of Consultation: Pulmonary Referring Provider: JOSIE CHENG 24 HR Interval Summary Free Text/Dictation alert, wbc tending down, afebrile, off Heparin drip, refused lung biopsy, cont to monitor, dw staff Constitutional: requiring IVF Detailed Summary Cardiovascular: no complaints Gastrointestinal: no complaints Genitourinary: no complaints Musculoskeletal: other (Ble swelling, pain) Psychological: nl mood/affect Exam/Review of Systems Vital Signs Vitals Vital Signs Date Time Temp Pulse Resp B/P Pulse Ox O2 Delivery O2 Flow Rate FiO2 08/03/17 08:18 98.7 114 19 106/58 95 07/30/17 16:27 21 Intake and Output 08/02/17 08/02/17 08/03/17 15:00 23:00 07:00 Intake Total 45.5 ml 2250.5 ml 736.5 ml Output Total 960 ml 700 ml Balance 45.5 ml 1290.5 ml 36.5 ml Exam Constitutional: alert, well developed Psych: nl mood/affect Respiratory: clear to auscultation, normal air movement Cardiovascular: nl pulses, other (sinus tachy ) Musculoskeletal: swelling Extremities: normal pulses Neurological: nl mental status, nl speech Results Result Diagram: 08/02/1731 08/02/1731 Results 24 hrs Laboratory Tests Test 08/02/17 16:37 08/02/17 23:29 08/03/17 05:12 Activated Partial Thromboplast Time 100.3 *H 79.5 *H 44.8 H Medications Medications Current Medications Dutasteride (Avodart) 0.5 mg DAILY PO Last administered on 08/03/17 09:37; Admin Dose 0.5 MG; Start 07/22/17 at 09:00 Gabapentin (Neurontin) 300 mg QHS PO Last administered on 08/02/17 20:30; Admin Dose 300 MG; Start 07/22/17 at 21:00 Salmeterol Xinafoate/ Fluticasone (Advair 250/50 Diskus) 1 inh BID INH Last administered on 08/02/17 20:30; Admin Dose 1 INH; Start 07/22/17 at 09:00 Atorvastatin Calcium (Lipitor) 10 mg QAM PO Last administered on 08/03/17 09: 37; Admin Dose 10 MG; Start 07/22/17 at 09:00 Acetaminophen (Tylenol Tab) 650 mg QID PRN PO PAIN LEVEL 1-5; Start 07/21/17 at 23:30 Ondansetron HCl (Zofran Inj) 4 mg Q6H PRN IV NAUSEA AND/OR VOMITING Last administered on 07/26/17 21:10; Admin Dose 4 MG; Start 07/21/17 at 23:30 Acetaminophen/ Hydrocodone Bitart ([place] (5/325)) 1 tab Q4H PRN PO PAIN LEVEL 4 -7 Last administered on 08/03/17 07:52; Admin Dose 1 TAB; Start 07/21/17 at 23:30 Hydromorphone HCl (Dilaudid) 1 mg Q3H PRN IV PAIN Last administered on 05:26; Admin Dose 1 MG; Start 07/23/17 at 22:00 Famotidine (Pepcid) 20 mg BID PO Last administered on 08/03/17 09:37; Admin Dose 20 MG; Start 07/26/17 at 21:00 Metoprolol Tartrate (Lopressor) 12.5 mg BID PO Last administered on 08/03/17 09:42; Admin Dose 12.5 MG; Start 07/27/17 at 21:00 Docusate Sodium (Colace) 100 mg BID PO Last administered on 08/03/17 09:37; Admin Dose 100 MG; Start 07/28/17 at 21:00 Polyethylene Glycol (Miralax) 17 gm PRN PRN PO CONSTIPATION Last administered on 07/31/17 20:26; Admin Dose 17 GM; Start 07/28/17 at 15:00 Senna (Senokot) 1 tab DAILY PRN PO CONSTIPATION Last administered on 20:25; Admin Dose 1 TAB; Start 07/30/17 at 17:00 Mineral Oil (Mineral Oil) 30 ml BID PO Last administered on 08/02/17 20:30; Admin Dose 30 ML; Start 07/30/17 at 21:00 Furosemide (Lasix) 20 mg DAILY IV Last administered on 08/02/17 08:49; Admin Dose 20 MG; Start 08/01/17 at 09:00 Azithromycin (Zithromax) 500 mg DAILY PO Last administered on 08/03/17 09:40 ; Admin Dose 500 MG; Start 08/01/17 at 11:30 Lorazepam (Ativan) 0.5 mg Q6H PRN IV ANXIETY Last administered on 08/02/17 21 :36; Admin Dose 0.5 MG; Start 08/01/17 at 19:00 Apixaban (Eliquis) 5 mg BID PO ; Start 08/03/17 at 21:00 JOSIE CHENG Aug 03, 2017 10:25
--- NOTE | 2017-08-03 10:40 | PN ---
Date/Time of Note Date/Time of Note DATE: 08/03/17 TIME: 10:40 Assessment/Plan VTE Prophylaxis VTE Prophylaxis Intervention: other Lines/Catheters IV [facility]ter [facility] (from [facility] Peripheral IV Urinary Cath still in place: No Assessment/Plan Chief Complaint/Hosp Course -Right upper lobe mass. Dr Garay is following in pulmonology consultation. Patient is started on Zithromax with this recommendation for follow-up CT in 3 weeks. -Right lower extremity pain, continue [place] and morphine as needed for pain. 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 Mendiola is following in vascular surgery consultation. S/p thrombectomy. Status post TPN and heparin drip. Continue heparin. Dr. Short is following in cardiology consultation -Right upper lung mass, pending biopsy on Friday -Hypercoagulation work up is neg, Dr Amaya is following in hematology consultation. -Left leg DVT -COPD -Dyslipidemia Problems: Subjective 24 Hr Interval Summary Free Text/Dictation Patient frustrated with pain in legs Exam/Review of Systems Vital Signs Vitals Vital Signs Date Time Temp Pulse Resp B/P Pulse Ox O2 Delivery O2 Flow Rate FiO2 08/03/17 08:18 98.7 114 19 106/58 95 07/30/17 16:27 21 Intake and Output 08/02/17 08/02/17 08/03/17 15:00 23:00 07:00 Intake Total 45.5 ml 2250.5 ml 736.5 ml Output Total 960 ml 700 ml Balance 45.5 ml 1290.5 ml 36.5 ml Exam Constitutional: well developed Head: atraumatic, normocephalic Neck: supple Respiratory: diminished breath sounds Cardiovascular: regular rate and rhythm Gastrointestinal: non-tender, soft Extremities: normal pulses Results Result Diagram: 08/02/1731 08/02/17 0831 Results 24 hrs Laboratory Tests Test 08/02/17 16:37 08/02/17 23:29 08/03/17 05:12 Activated Partial Thromboplast Time 100.3 *H 79.5 *H 44.8 H Medications Medications Current Medications Dutasteride (Avodart) 0.5 mg DAILY PO Last administered on 08/03/17t 09:37; Admin Dose 0.5 MG; Start 07/22/17 at 09:00 Gabapentin (Neurontin) 300 mg QHS PO Last administered on 08/02/17 20:30; Admin Dose 300 MG; Start 07/22/17 at 21:00 Salmeterol Xinafoate/ Fluticasone (Advair 250/50 Diskus) 1 inh BID INH Last administered on 08/02/17 20:30; Admin Dose 1 INH; Start 07/22/17 at 09:00 Atorvastatin Calcium (Lipitor) 10 mg QAM PO Last administered on 08/03/17 09: 37; Admin Dose 10 MG; Start 07/22/17 at 09:00 Acetaminophen (Tylenol Tab) 650 mg QID PRN PO PAIN LEVEL 1-5; Start 07/21/17 at 23:30 Ondansetron HCl (Zofran Inj) 4 mg Q6H PRN IV NAUSEA AND/OR VOMITING Last administered on 07/26/17 21:10; Admin Dose 4 MG; Start 07/21/17 at 23:30 Acetaminophen/ Hydrocodone Bitart ([place] (5/325)) 1 tab Q4H PRN PO PAIN LEVEL 4 -7 Last administered on 08/03/17 07:52; Admin Dose 1 TAB; Start 07/21/17 at 23:30 Hydromorphone HCl (Dilaudid) 1 mg Q3H PRN IV PAIN Last administered on 10:09; Admin Dose 1 MG; Start 07/23/17 at 22:00 Famotidine (Pepcid) 20 mg BID PO Last administered on 08/03/17 09:37; Admin Dose 20 MG; Start 07/26/17 at 21:00 Metoprolol Tartrate (Lopressor) 12.5 mg BID PO Last administered on 08/03/17 09:42; Admin Dose 12.5 MG; Start 07/27/17 at 21:00 Docusate Sodium (Colace) 100 mg BID PO Last administered on 08/03/17 09:37; Admin Dose 100 MG; Start 07/28/17 at 21:00 Polyethylene Glycol (Miralax) 17 gm PRN PRN PO CONSTIPATION Last administered on 07/31/17 20:26; Admin Dose 17 GM; Start 07/28/17 at 15:00 Senna (Senokot) 1 tab DAILY PRN PO CONSTIPATION Last administered on 20:25; Admin Dose 1 TAB; Start 07/30/17 at 17:00 Mineral Oil (Mineral Oil) 30 ml BID PO Last administered on 08/02/17 20:30; Admin Dose 30 ML; Start 07/30/17 at 21:00 Furosemide (Lasix) 20 mg DAILY IV Last administered on 08/02/17 08:49; Admin Dose 20 MG; Start 08/01/17 at 09:00 Azithromycin (Zithromax) 500 mg DAILY PO Last administered on 08/03/17 09:40 ; Admin Dose 500 MG; Start 08/01/17 at 11:30 Lorazepam (Ativan) 0.5 mg Q6H PRN IV ANXIETY Last administered on 08/02/17 21 :36; Admin Dose 0.5 MG; Start 08/01/17 at 19:00 Apixaban (Eliquis) 5 mg BID PO ; Start 08/03/17 at 21:00 MARIE BURK Aug 03, 2017 10:40
--- NOTE | 2017-08-03 12:25 | CONS ---
Date/Time of Note Date/Time of Note DATE: 08/03/17 TIME: 12:18 Assessment/Plan Assessment/Plan Chief Complaint/Hosp Course #RUL Lung mass with hilar adenopathy -given CT findings there is increased concern for lung cancer, especially given his smoking history -the CT findings were discussed in detail with the patient who understands he will need a biopsy to rule out cancer -at this time, patient has changed his mind and does not want to pursue a biopsy in the hospital. -as explained to the patient we can perform an out patient PET CT and biopsy when he is comfotable. -although this mass has been there for years, the hilar adenopathy makes me concerned for underlying cancer. patient state he understands my concern but does not want to pursue biopsy at this time -will dc heparin gtt and place patient back on eliquis 5 mg BID #Bilateral lower extremity deep vein thrombosis- pt is now s/p thrombectomy of bilateral lower extremities with heparin and TPA being administered through bilateral sheaths. -pt is back on Eliquis -transition to heparin gtt now -Status post IVC filter placement -hypercoag workup negative. 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 Pt likely having thromboemboli form this aneurism -continue Plavix Problems: Consultation Date/Type/Reason Admit Date/Time Jul 21, 2017 at 23:03 Initial Consult Date 07/23/17 Type of Consultation: oncology Reason for Consultation r lung mass Referring Provider: JOSIE CHENG 24 HR Interval Summary Free Text/Dictation patient states that the has known about the right lung mass for many years and states he does not want a biopsy at this time. he has asked me to cancel the biopsy and states he will follow up with me as an out patient if he decides he want to pursue further workup of this nodule and hilar lymphadenopathy Exam/Review of Systems Vital Signs Vitals Vital Signs Date Time Temp Pulse Resp B/P Pulse Ox O2 Delivery O2 Flow Rate FiO2 08/03/17 08:18 98.7 114 19 106/58 95 07/30/17 16:27 21 Intake and Output 08/02/17 08/02/17 08/03/17 15:00 23:00 07:00 Intake Total 45.5 ml 2250.5 ml 736.5 ml Output Total 960 ml 700 ml Balance 45.5 ml 1290.5 ml 36.5 ml Exam Constitutional: alert, frail, oriented Psych: anxiety, depression Head: normocephalic Eyes: nl conjunctiva ENMT: nl external ears & nose Neck: non-tender, supple Respiratory: clear to auscultation Cardiovascular: regular rate and rhythm Gastrointestinal: soft Musculoskeletal: other (chronic changes from peripheral vascular disease) Results Result Diagram: 08/02/1731 08/02/17 0831 Results 24 hrs Laboratory Tests Test 08/02/17 16:37 08/02/17 23:29 08/03/17 05:12 Activated Partial Thromboplast Time 100.3 *H 79.5 *H 44.8 H Medications Medications Current Medications Dutasteride (Avodart) 0.5 mg DAILY PO Last administered on 08/03/17 09:37; Admin Dose 0.5 MG; Start 07/22/17 at 09:00 Gabapentin (Neurontin) 300 mg QHS PO Last administered on 08/02/17 20:30; Admin Dose 300 MG; Start 07/22/17 at 21:00 Salmeterol Xinafoate/ Fluticasone (Advair 250/50 Diskus) 1 inh BID INH Last administered on 08/02/17 20:30; Admin Dose 1 INH; Start 07/22/17 at 09:00 Atorvastatin Calcium (Lipitor) 10 mg QAM PO Last administered on 08/03/17 09: 37; Admin Dose 10 MG; Start 07/22/17 at 09:00 Acetaminophen (Tylenol Tab) 650 mg QID PRN PO PAIN LEVEL 1-5; Start 07/21/17 at 23:30 Ondansetron HCl (Zofran Inj) 4 mg Q6H PRN IV NAUSEA AND/OR VOMITING Last administered on 07/26/17 21:10; Admin Dose 4 MG; Start 07/21/17 at 23:30 Acetaminophen/ Hydrocodone Bitart ([place] (5/325)) 1 tab Q4H PRN PO PAIN LEVEL 4 -7 Last administered on 08/03/17 07:52; Admin Dose 1 TAB; Start 07/21/17 at 23:30 Hydromorphone HCl (Dilaudid) 1 mg Q3H PRN IV PAIN Last administered on 10:09; Admin Dose 1 MG; Start 07/23/17 at 22:00 Famotidine (Pepcid) 20 mg BID PO Last administered on 08/03/17 09:37; Admin Dose 20 MG; Start 07/26/17 at 21:00 Metoprolol Tartrate (Lopressor) 12.5 mg BID PO Last administered on 08/03/17 09:42; Admin Dose 12.5 MG; Start 07/27/17 at 21:00 Docusate Sodium (Colace) 100 mg BID PO Last administered on 08/03/17 09:37; Admin Dose 100 MG; Start 07/28/17 at 21:00 Polyethylene Glycol (Miralax) 17 gm PRN PRN PO CONSTIPATION Last administered on 07/31/17 20:26; Admin Dose 17 GM; Start 07/28/17 at 15:00 Senna (Senokot) 1 tab DAILY PRN PO CONSTIPATION Last administered on 20:25; Admin Dose 1 TAB; Start 07/30/17 at 17:00 Mineral Oil (Mineral Oil) 30 ml BID PO Last administered on 08/02/17 20:30; Admin Dose 30 ML; Start 07/30/17 at 21:00 Furosemide (Lasix) 20 mg DAILY IV Last administered on 08/02/17 08:49; Admin Dose 20 MG; Start 08/01/17 at 09:00 Azithromycin (Zithromax) 500 mg DAILY PO Last administered on 08/03/17 09:40 ; Admin Dose 500 MG; Start 08/01/17 at 11:30 Lorazepam (Ativan) 0.5 mg Q6H PRN IV ANXIETY Last administered on 08/02/17 21 :36; Admin Dose 0.5 MG; Start 08/01/17 at 19:00 Apixaban (Eliquis) 5 mg BID PO ; Start 08/03/17 at 21:00 AMARA MCINTYRE M.D. Aug 03, 2017 12:25
--- NOTE | 2017-08-03 13:30 | CONS ---
Date/Time of Note Date/Time of Note DATE: 08/03/17 TIME: 13:28 Assessment/Plan Assessment/Plan Additional Assessment/Plan 1. DVT s/p declotting 2. Hypertension. 3. Dyslipidemia. 4. Chronic obstructive pulmonary disease. 5. Popliteal artery aneurysm 6. Lung mass on CT Continue Metoprolol Off Heparin On eliquis Continue Avodart Continue Lipitor Continue Antibiotics Continue GI and DVT Prophylaxis Consultation Date/Type/Reason Admit Date/Time Jul 21, 2017 at 23:03 Initial Consult Date 08/01/17 Type of Consultation: oncology Referring Provider: JOSIE CHENG Exam/Review of Systems Vital Signs Vitals Vital Signs Date Time Temp Pulse Resp B/P Pulse Ox O2 Delivery O2 Flow Rate FiO2 08/03/17 08:18 98.7 114 19 106/58 95 07/30/17 16:27 21 Intake and Output 08/02/17 08/02/17 08/03/17 15:00 23:00 07:00 Intake Total 45.5 ml 2250.5 ml 736.5 ml Output Total 960 ml 700 ml Balance 45.5 ml 1290.5 ml 36.5 ml Exam Constitutional: alert, oriented Head: atraumatic, normocephalic Neck: non-tender, supple Respiratory: clear to auscultation Cardiovascular: regular rate and rhythm Gastrointestinal: nl liver, spleen, non-tender, soft Ext No edema Results Result Diagram: 08/02/17 0831 08/02/1731 Results 24 hrs Laboratory Tests Test 08/02/17 16:37 08/02/17 23:29 08/03/17 05:12 Activated Partial Thromboplast Time 100.3 *H 79.5 *H 44.8 H Medications Medications Current Medications Dutasteride (Avodart) 0.5 mg DAILY PO Last administered on 08/03/17 09:37; Admin Dose 0.5 MG; Start 07/22/17 at 09:00 Gabapentin (Neurontin) 300 mg QHS PO Last administered on 08/02/17 20:30; Admin Dose 300 MG; Start 07/22/17 at 21:00 Salmeterol Xinafoate/ Fluticasone (Advair 250/50 Diskus) 1 inh BID INH Last administered on 08/02/17 20:30; Admin Dose 1 INH; Start 07/22/17 at 09:00 Atorvastatin Calcium (Lipitor) 10 mg QAM PO Last administered on 08/03/17 09: 37; Admin Dose 10 MG; Start 07/22/17 at 09:00 Acetaminophen (Tylenol Tab) 650 mg QID PRN PO PAIN LEVEL 1-5; Start 07/21/17 at 23:30 Ondansetron HCl (Zofran Inj) 4 mg Q6H PRN IV NAUSEA AND/OR VOMITING Last administered on 07/26/17 21:10; Admin Dose 4 MG; Start 07/21/17 at 23:30 Acetaminophen/ Hydrocodone Bitart ([place] (5/325)) 1 tab Q4H PRN PO PAIN LEVEL 4 -7 Last administered on 08/03/17 07:52; Admin Dose 1 TAB; Start 07/21/17 at 23:30 Hydromorphone HCl (Dilaudid) 1 mg Q3H PRN IV PAIN Last administered on 10:09; Admin Dose 1 MG; Start 07/23/17 at 22:00 Famotidine (Pepcid) 20 mg BID PO Last administered on 08/03/17 09:37; Admin Dose 20 MG; Start 07/26/17 at 21:00 Metoprolol Tartrate (Lopressor) 12.5 mg BID PO Last administered on 08/03/17 09:42; Admin Dose 12.5 MG; Start 07/27/17 at 21:00 Docusate Sodium (Colace) 100 mg BID PO Last administered on 08/03/17 09:37; Admin Dose 100 MG; Start 07/28/17 at 21:00 Polyethylene Glycol (Miralax) 17 gm PRN PRN PO CONSTIPATION Last administered on 07/31/17 20:26; Admin Dose 17 GM; Start 07/28/17 at 15:00 Senna (Senokot) 1 tab DAILY PRN PO CONSTIPATION Last administered on 20:25; Admin Dose 1 TAB; Start 07/30/17 at 17:00 Mineral Oil (Mineral Oil) 30 ml BID PO Last administered on 08/02/17 20:30; Admin Dose 30 ML; Start 07/30/17 at 21:00 Furosemide (Lasix) 20 mg DAILY IV Last administered on 10/28/17at 08:49; Admin Dose 20 MG; Start 08/01/17 at 09:00 Azithromycin (Zithromax) 500 mg DAILY PO Last administered on 08/03/17 09:40 ; Admin Dose 500 MG; Start 08/01/17 at 11:30 Lorazepam (Ativan) 0.5 mg Q6H PRN IV ANXIETY Last administered on 08/02/17 21 :36; Admin Dose 0.5 MG; Start 08/01/17 at 19:00 Apixaban (Eliquis) 5 mg BID PO ; Start 08/03/17 at 21:00 JANSE DAVIS M.D. Aug 03, 2017 13:30
--- NOTE | 2017-08-03 14:17 | PN ---
Date/Time of Note Date/Time of Note DATE: 08/03/17 TIME: 14:11 Assessment/Plan Lines/Catheters IV Catheter Type (from [facility]): Peripheral IV Galvan in Place (from [facility]): No Assessment/Plan Chief Complaint/Hosp Course -Bilateral lower extremity atherosclerosis with disabling claudication and right popliteal artery aneurysm: It seems the patient may have findings of atheroemboli related to his popliteal artery aneurysm. -S/P Right fem-pop Stent grafting and Aortoiliac angiogram 07/23/2017 -Bilateral lower extremity acute venous thrombosis involving CFV, iliac veins and IVC: It seems the patient may have failed with Coumadin therapy as he had previous acute onsets of venous thrombosis with therapeutic INR's. and given te new findings of his CT scan concern of cancer given his smoking history is there especially being hypercoagulable despite being on Coumadin. 07/23/2017: -S/P Bilateral lower extremity venogram -S/P Bilateral CI, EI, CF veins and caval mechanical thrombectomy -S/P Thrombolysis Catheters 07/24/2017: -S/P Bilateral lysis check 07/25/2017 -S/P Bilateral Lysis check -Appreciate hematology Evaluation -Recommend for a lung biopsy given the CT chest findings to rule out any underlying tumors (possible cause of worsened hypercoagulable state) -Continue neurovascular checks Q4 -PT/OT full weight bearing with assistance -Clear from vascular surgery for followup as outpt but highly recommend for the patient to be cooperative and consider lung biopsy -Optimize vascular status (BP meds, diet, nutrition, exercise, sugar control, antiplatelets). -Discussed findings, plan and management with the patient and he understands. -Discussed limb salvage and realistic outcomes of our current findings and the possibility of limb loss is there. Patient fully understands and would like to have everything done in order to provide adequate limb salvage for him. He also understands with not wanting lung biopsy -Thank you for allowing us to partake in the care of your patient. Please call with any questions. Problems: Subjective 24 Hr Interval Summary No new vascular events overnight Exam/Review of Systems Vital Signs Vitals Vital Signs Date Time Temp Pulse Resp B/P Pulse Ox O2 Delivery O2 Flow Rate FiO2 08/03/17 08:18 98.7 114 19 106/58 95 07/30/17 16:27 21 Intake and Output 08/02/17 08/02/17 08/03/17 15:00 23:00 07:00 Intake Total 45.5 ml 2250.5 ml 736.5 ml Output Total 960 ml 700 ml Balance 45.5 ml 1290.5 ml 36.5 ml Exam Free Text/Dictation GENERAL: Alert and oriented x3, PULMONARY: Clear to auscultation bilaterally CARDIOVASCULAR: S1, S2 present ABDOMEN: Soft, nontender, nondistended. Bowel sounds positive. EXTREMITIES: -Right lower extremity palpable femoral pulse, palpable pedal pulse. Motor and sensory intact, Capillary refill 3,, edema 1+ -Left lower extremity, palpable femoral pulse, palpable pedal pulse. Motor and sensory intact. Capillary refill 3, edema 2+ -Bilateral groin soft Results Result Diagram: 08/02/17 0831 08/02/17 0831 MATT MCCULLOUGH MD Aug 03, 2017 14:17
[2017-08-03] MEDS ORDERED: HYDROmorphONE 1 MG/ML SYG IV STA (17:06)
[2017-08-03] MEDS ORDERED: HEPARIN 1000 UNITS/ML 10 ML INJ IV PRN ×2 (19:00)
[2017-08-03] MEDS ORDERED: HEPARIN 1000 UNITS/ML 10 ML INJ IV SCH (19:00)
[2017-08-03] MEDS ORDERED: HEPARIN 10,000 UNITS/ML 1 ML INJ IV SCH (19:00)
[2017-08-03] MEDS ORDERED: HEPARIN 25000 UNITS/D5W 250 ML (VPH) IV SCH (19:00)
--- NOTE | 2017-08-03 20:01 | QN ---
Documentation Comment Vascular Surgery Service was Called Regarding Mr. Abel regarding change in the exam of the RLE at 650pm. It seems no pedal pulses were detected and complain of new onset of worsening pain. This is different than his usual discomfort. Lower extremity U/S was ordered for evaluation of arterial and venous duplex Unfortunately, the patients anticoagulation had not been restarted and vascular surgery was not informed Patient was evaluated at 720pm and no pedal pulses on exam, decreased sensation and motor was identified. Bedside U/S demonstrated thrombosed stent graft and acute on chronic RLE DVT-with recurrence extending to the external iliac vein Patient will need urgent lysis therapy as he has both acute arterial thrombosis and venous thrombosis likely related to his hypercoagulable state. Therefore, energy systems laboratory director was notified regarding the urgent matter and will plan intervene with angiogram and possible thrombectomy/thrombolysis Patient has been transferred to ICU for Q1 Neurovascular checks MATT MCCULLOUGH MD Aug 03, 2017 20:00
--- NOTE | 2017-08-03 20:04 | HPN ---
Date/Time of Note Date/Time of Note DATE: 08/03/17 TIME: 20:01 Interval H&P Admission Note Pt. seen H&P reviewed: Systems changes noted below Patient RLE exam has changed. MATT MCCULLOUGH MD Aug 03, 2017 20:04
--- NOTE | 2017-08-03 20:13 | RADRPT ---
PROCEDURE: Ultrasound of the right lower extremity venous system. CLINICAL INDICATION: Right leg pain and swelling, deep venous thrombosis TECHNIQUE: Stevens scale with and without compression, color doppler, spectral doppler of the venous system of the right lower extremity was performed. Venous augmentation maneuvers were utilized. COMPARISON: No prior studies are available for comparison. FINDINGS: Common femoral vein: Occlusive thrombus Femoral vein: Occlusive thrombus throughout Popliteal vein: Occlusive thrombus Calf veins: Occlusive thrombus throughout No soft tissue abnormalities are identified. IMPRESSION: Occlusive deep venous thrombus throughout the right lower extremity. Results were discussed with Nurse Елена by telephone at 08/03/2017 8:09:[address] Rodney Her er RPTAT: AADD .Rodney Kilgore MD, MD Date Time Electronically viewed and signed by .Rodney Kilgore MD, on 08/03/2017 20:13 .B/
[2017-08-03] MEDS: NS IV SCH (20:30)
[2017-08-03] MEDS: ALTEPLASE IV SCH (20:30)
[2017-08-03] MEDS ORDERED: HEPARIN 1000 UNITS/ML 10 ML INJ ONE (20:50)
[2017-08-03] MEDS ORDERED: HEPARIN 1000 UNITS/NS (A-LINE) 1,000 ML ONE (20:50)
[2017-08-03] MEDS ORDERED: LIDOCAINE 1% (MDV) 20 ML INJ ONE (20:51)
[2017-08-03] MEDS ORDERED: IODIXANOL LOCM 100 ML BTL ONE (20:51)
[2017-08-03] MEDS ORDERED: MIDAZOLAM 1 MG/ML 2 ML INJ ONE (20:52)
[2017-08-03] MEDS ORDERED: NITROGLYCERIN (IC) 100 MCG/ML INJ ONE (20:52)
[2017-08-03] MEDS ORDERED: FENTAnyl 50 MCG/ML VIAL ONE (20:52)
[2017-08-03] MEDS ORDERED: APIXABAN 5 MG TABLET PO SCH (21:00)
[2017-08-03] MEDS: GABAPENTIN 300 MG CAP PO SCH (21:00)
[2017-08-03] MEDS ORDERED: ONDANSETRON 4 MG INJ ONE ×2 (22:10→22:34)
[2017-08-03] MEDS ORDERED: CEFAZOLIN 1 GM/50 ML (PMX) 50 ML IVPB ONE (22:10)
[2017-08-03] MEDS ORDERED: METOPROLOL 5 MG INJ ONE (23:45)
[2017-08-04] VITALS (45 sets, daily range): BP systolic 108–141; BP diastolic 67–89; PULSE 97–125; RESP 15–46
[2017-08-04] MEDS ORDERED: METOPROLOL 5 MG INJ IV SCH
[2017-08-04] MEDS: HYDROmorphONE 1 MG/ML SYG IV PRN ×4 (00:05→18:01)
[2017-08-04 00:29] LABS: Arterial Base Excess 0.4 mmol/L (-3.0-3); Arterial COHb 0.1 % (0.0-3.0); Arterial Fraction of Oxyhgb 94.6 % (93.0-99.0); Arterial HCO3 23.9 mmol/L (22.0-26.0); Arterial MetHb 0.3 % (0.0-1.5); Arterial Total Hemglobin 10.5 g/dl (12.0-18.0); MODE ROOM AIR
[2017-08-04] MEDS: FENTAnyl 50 MCG/ML VIAL IV PRN ×6 (00:35→23:37)
[2017-08-04] MEDS ORDERED: LEVALBUTEROL (NEB) 0.63 MG/3 ML AMP ONE (00:57)
[2017-08-04 00:58] LABS: BASOPHILS % 0.2 % (0.0-2.0); EOSINOPHILS # 0.1 10^3/ul (0.0-0.5); EOSINOPHILS % 0.7 % (0.0-7.0); HEMATOCRIT 28.4 % (42.0-52.0); HEMOGLOBIN 9.1 g/dl (14.0-18.0); LYMPHOCYTES # 0.7 10^3/ul (0.8-2.9); MEAN CORPUSCULAR HEMOGLOBIN 27.1 pg (29.0-33.0); MEAN CORPUSCULAR VOLUME 84.5 fl (82.0-101.0); MEAN PLATELET VOLUME 9.1 fl (7.4-10.4); NEUTROPHIL # 14.4 10^3/ul (1.6-7.5); NEUTROPHILS % 87.6 % (39.0-77.0); PLATELET COUNT 346 10^3/UL (140-415); RED BLOOD COUNT 3.36 10^6/ul (4.70-6.10); RED CELL DISTRIBUTION WIDTH 14.8 % (11.5-14.5); WHITE BLOOD COUNT 16.5 10^3/ul (4.8-10.8)
--- NOTE | 2017-08-04 01:23 | OPR ---
DATE OF OPERATION: 08/03/2017 VASCULAR SURGERY OPERATION SURGEON: Ash Mendiola MD PREOPERATIVE DIAGNOSES: 1. Bilateral lower extremity iliofemoral deep vein thrombosis. 2. Iliocaval deep vein thrombosis. 3. Acute limb ischemia. POSTOPERATIVE DIAGNOSIS: 1. Right femoral-popliteal deep vein thrombosis. 2. Iliocaval thrombosis. 3. Thrombosed right femoral-popliteal stent graft. ANESTHESIA: Local with moderate sedation. ESTIMATED BLOOD LOSS: 150 mL. COMPLICATIONS: None. HEPARIN: As recorded. CONTRAST: As recorded. TRANSFUSIONS: One unit of packed red blood cells. ACCESS: 1. Left common femoral artery, 6-Uzbek sheath. 1. Right common femoral vein, 6-Uzbek sheath. CLOSURE: None. SEDATION: Under physician supervision with moderate sedation of fentanyl and Versed were administer ed intravenously under continuous monitoring by the interventional team and attending physician. Pu lse oximeter, heart rate, blood pressures were continuously monitored by the interventional surgeon. The physician's time was total of 2 hours of [id number] sedation time with the patient. INDICATIONS: This is a 72-year-old gentleman who had presented earlier in the week with bilateral l ower extremity iliofemoral deep vein thrombosis and iliocaval deep vein thrombosis, and right poplit eal artery aneurysm in which he had underwent stent grafting of the right fem-pop artery aneurysm an d the lysis therapy of the bilateral lower extremity deep vein thrombosis. Subsequent to that, the patient did well with the lysis therapy after 3 days and was started on new treatment of anticoagula tion with heparin and transitioned to Eliquis as the patient had failed the anticoagulation with Cou madin therapy. Today, the patient had refused to undergo lung biopsy secondary to new findings of p ulmonary nodules and was transitioned from heparin to his Eliquis anticoagulation. It seems that th e patient began to have symptoms of right lower extremity discomfort and pain and was identified to not have pedal pulses. The patient did not have much change in his edema; however, he began to have loss of motor and sensory. Based on these findings, the patient was informed of the alternatives, risks, and benefits and risks including but not limited to bleeding, thrombosis, embolization, myoca rdial infarction, , stroke, device malfunction, infection, nephrotoxicity, limb loss, nerve inj ury, intracranial hemorrhage, and the patient has agreed to proceed. PROCEDURES: 1. Ultrasound-guided access of the left common femoral artery. 2. Ultrasound-guided access of the right common femoral vein. 3. Third order selection of the right superficial femoral artery. 4. Mechanical and pharmacological thrombolysis and thrombectomy of the femoral-popliteal occluded s tent grafts. 5. Placement of lysis leg treatment catheter of 20 cm in length placed in the femoral-popliteal seg ments in the arterial vasculature. 6. Left iliocaval venogram. 7. Lysis catheter placement in the right iliocaval segment with a treatment distance of 15 cm. FINDINGS: The patient that was identified to have a thrombosed femoral-popliteal stent graft in the right femoral-popliteal artery segment. Further, the patient was identified to have a recurrence o f his right iliofemoral and iliocaval thrombosis. DESCRIPTION OF PROCEDURE: The patient was brought into the angio suite and positioned in supine pos ition on the fluoroscopic table. Sedation was administered without any complications. Bilateral gr oins were then shaved and prepped in usual standard sterile fashion. Timeout and appropriate site w as marked and confirmed. Local anesthesia was then infiltrated in the region of the bilateral commo n femoral artery and veins. The left common femoral artery was then cannulated with a micro access needle under ultrasound guidance and a guidewire was advanced into the iliac artery. Under fluorosc opic guidance, the needle was then removed and a microcatheter was placed. Bentson wire was then pa ssed into the infrarenal aorta under fluoroscopic guidance followed by a short 5-Uzbek sheath over the wire. The sheath was then appropriately flushed with heparinized saline solution. At this poin t, using an Omni flush catheter, we used to select the right superficial femoral artery in a third o rder selection. At this point, a 6-Uzbek Destination sheath was exchanged and using a exchange Jarrod tson wire and a guiding catheter were able to cross the thrombosed fem-pop stent graft. At this poi nt, a Penumbra 6-Uzbek thrombectomy catheter was used to place in the segment of the thrombos is and the mechanical thrombectomy with the local injection of 4 mg of TPA for pharmacological throm bolysis was performed. A significant amount of clot was removed and the blood loss of about 150 mL was identified. At this point, a lysis catheter with the treatment segment of about [address] d in the femoral-popliteal segment and the lysis catheter was adjusted to 0.5 mg of TPA with the erickson e port of the sheath being connected to 500 units an hour of heparin. At this point, we went ahead and then accessed the right common femoral vein with a micro access nee dle under ultrasound guidance. The guidewire was then advanced into the iliac vein under fluoroscop ic guidance. During this process identified the wire and had some resistance as there was a signifi cant iliocaval clot. The needle was then removed and a microcatheter was placed. Through the micro catheter, a venogram was performed which identified the patient having recurrent iliocaval thrombosi s; therefore, using a Glidewire and a guiding catheter, were able to place the wire into the inferio r vena cava and microcatheter was exchanged with a 6-Uzbek sheath. At this point, we went ahead an d performed another venogram which identified the similar findings where the thrombosis starts from the common femoral vein; therefore, our plan was to perform a mechanical thrombectomy in this segmen t as well. However, the patient had began to have significant nausea and vomiting with increased re spiratory effort. Therefore, the decision was made not to proceed with any further intervention and to place a lysis catheter for treatment distance of 15 cm in the iliocaval segment. Once this was performed, a lysis catheter was connected to 1 mg per hour of TPA and the side port of the sheath wa s connected to 500 units an hour of heparin. The patient tolerated this aspect of the procedure wel l and was taken to the intensive care unit. The patient's manufacturers agent, retort cooler, the PCP and the oxygen equipment technician were informed of the current findings and current status. PLAN: I had a long discussion with the patient's sister in regards to our current findings and the possibility if the patient continues to have vomiting episodes and if he develops upper GI bleed or suggestions of bleeding, we may have to abort our lysis management, at which time right lower extrem ity limb salvage may be challenging and possibility of a major amputation may be required. We will plan to continue our observation of the patient with neuro and vascular checks and the labor atory workup. Further, the patient did have thrombus that was suctioned during our mechanical throm bectomy, which will also be sent for pathology. Dictated By: ASH KNOWLES/FERNIE Conf#: [id number] [facility]#: [id number]
[2017-08-04 01:39] LABS: PT RATIO 1.3
[2017-08-04 01:43] LABS: ALANINE AMINOTRANSFERASE 28 IU/L (13-69); ALBUMIN 3.1 g/dl (3.3-4.9); ALKALINE PHOSPHATASE 208 IU/L (42-121); ANION GAP 12 (8-16); ASPARTATE AMINO TRANSFERASE 26 IU/L (15-46); BILIRUBIN,INDIRECT 0.7 mg/dl (0-1.1); BILIRUBIN,TOTAL 0.7 mg/dl (0.2-1.3); BLOOD UREA NITROGEN 14 mg/dl (7-20); CALCIUM 9.3 mg/dl (8.4-10.2); CARBON DIOXIDE 29 mmol/L (21-31); CHLORIDE 99 mmol/L (97-110); CREATININE 0.73 mg/dl (0.61-1.24); GLUCOSE 125 mg/dl (70-220); INR 1.27; PHOSPHORUS 4.2 mg/dl (2.5-4.9); POTASSIUM 4.5 mmol/L (3.5-5.1); SODIUM 135 mmol/L (135-144); TOTAL PROTEIN 7.2 g/dl (6.1-8.1)
[2017-08-04] MEDS: LEVALBUTEROL (NEB) 0.63 MG/3 ML AMP HHN SCH ×4 (02:00→20:45)
[2017-08-04] MEDS: ONDANSETRON 4 MG INJ IV PRN (02:15)
[2017-08-04 02:21] LABS: CK-MB 0.75 ng/ml (0.0-2.4); TROPONIN-I < 0.012 ng/ml (0.00-0.12)
--- NOTE | 2017-08-04 03:55 | RADRPT ---
PROCEDURE: US Lower extremity arterial. CLINICAL INDICATION: History of distal SFA, popliteal artery aneurysm, stent revascularization TECHNIQUE: Multiple sonographic images of the right lower extremity arteries were obtained utilizi ng grayscale, color-flow and doppler imaging. The images were reviewed on a PACS workstation. COMPARISON: US EXTREMITY 07/22/2017; US LOWER EXTREMITY 06/23/2017 FINDINGS: There is no significant calcific plaque. Velocities and waveforms were obtained as described below. RIGHT LEG: Right common femoral artery: 97 cm/s; triphasic waveforms Right profunda femoral artery: 97 cm/s; triphasic waveforms Right proximal femoral artery: 49.6 cm/s; triphasic waveforms Right mid superficial femoral artery: 39.2 cm/s; triphasic waveforms Right distal superficial femoral artery: No flow is seen in the stent. The aneurysm is incompletely imaged. Right popliteal artery: 29.6 cm/s; monophasic waveforms Right posterior tibial artery: 9.3 cm/s; monophasic waveforms Right dorsalis pedis artery: 7.1 cm/s; monophasic waveforms IMPRESSION: Occluded distal SFA stent. Decreased, monophasic flow in the popliteal, posterior tibial and dorsalis pedis arteries. Physician Fausto Date Time Electronically viewed and signed by Physician Fausto on 08/04/2017 03:54 /
[2017-08-04] MEDS ORDERED: METOPROLOL 5 MG INJ IV PRN (04:00)
[2017-08-04] MEDS: SOD CHLORIDE 0.9% 1,000 ML IV SCH ×3 (04:20→18:01)
[2017-08-04 05:36] LABS: BASOPHILS % 0.2 % (0.0-2.0); EOSINOPHILS % 0.1 % (0.0-7.0); HEMATOCRIT 29.4 % (42.0-52.0); HEMOGLOBIN 9.4 g/dl (14.0-18.0); LYMPHOCYTES # 0.6 10^3/ul (0.8-2.9); LYMPHOCYTES % 4.6 % (15.0-51.0); MEAN CORPUSCULAR HEMOGLOBIN 27.1 pg (29.0-33.0); MEAN CORPUSCULAR VOLUME 84.7 fl (82.0-101.0); MEAN PLATELET VOLUME 9.4 fl (7.4-10.4); MONOCYTE # 0.8 10^3/ul (0.3-0.9); MONOCYTES % 5.7 % (0.0-11.0); NEUTROPHIL # 11.9 10^3/ul (1.6-7.5); NEUTROPHILS % 88.1 % (39.0-77.0); PLATELET COUNT 337 10^3/UL (140-415); RED BLOOD COUNT 3.47 10^6/ul (4.70-6.10); RED CELL DISTRIBUTION WIDTH 14.9 % (11.5-14.5); WHITE BLOOD COUNT 13.5 10^3/ul (4.8-10.8)
[2017-08-04 05:56] LABS: CALCIUM 8.9 mg/dl (8.4-10.2); CREATININE 0.76 mg/dl (0.61-1.24); POTASSIUM 4.6 mmol/L (3.5-5.1)
[2017-08-04 06:17] LABS: INR 1.19; PROTIME 15.2 Sec (12.2-14.2); PT RATIO 1.2
[2017-08-04] MEDS: NS IV SCH ×6 (06:30→20:35)
[2017-08-04] MEDS: ALTEPLASE IV SCH ×6 (06:30→20:35)
[2017-08-04 06:57] LABS: MAGNESIUM 2.1 mg/dl (1.7-2.5); PHOSPHORUS 4.1 mg/dl (2.5-4.9)
[2017-08-04] MEDS ORDERED: ONDANSETRON 4 MG INJ ONE (07:29)
[2017-08-04] MEDS ORDERED: CEFAZOLIN 1 GM/50 ML (PMX) 50 ML IVPB ONE (07:48)
[2017-08-04] MEDS: LORAZEPAM 2 MG INJ IV PRN (08:52)
--- NOTE | 2017-08-04 08:59 | CONS ---
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 Pt likely having thromboemboli form this aneurism -continue Plavix # Renal artery atherosclerosis- no evidence of it will check Urine eosinophils, uric acid thanks for consultaiton, we will continue to follow up Consultation Date/Type/Reason Admit Date/Time Jul 21, 2017 at 23:03 Date of Consultation: Aug 04, 2017 Type of Consultation: NEPHROLOGY Reason for Consultation concerned about renal artery thrombosis , proteinuria Referring Provider: SEBAS LALA MD Constitutional: requiring IVF Eyes: no complaints ENT: no complaints Respiratory: no complaints Cardiovascular: no complaints Gastrointestinal: no complaints Genitourinary: no complaints Musculoskeletal: other (Ble swelling, pain) Skin: no complaints Neurologic: no complaints Psychological: anxiety, depression Social History Alcohol Use: none Smoking Status: Former smoker Drug Use: marijuana Exam/Review of Systems Vital Signs Vitals Vital Signs Date Time Temp Pulse Resp B/P Pulse Ox O2 Delivery O2 Flow Rate FiO2 08/04/17 05:30 110 30 116/76 97 Room Air 08/04/17 04:00 98.1 Intake and Output 08/03/17 08/03/17 08/04/17 15:00 23:00 07:00 Intake Total 720 ml Output Total 300 ml 380 ml Balance 420 ml -380 ml Exam Constitutional: alert, oriented Psych: anxiety, depression, no complaints Head: normocephalic Eyes: nl conjunctiva ENMT: nl external ears & nose Neck: supple Respiratory: clear to auscultation, normal air movement Cardiovascular: regular rate and rhythm Gastrointestinal: soft Musculoskeletal: nl extremities to inspection Extremities: other, pitting pedal edema (TPA in place, pulses felt. chronic venous stasis changes) Results Result Diagram: 08/04/1743908/04/17439 Results 24 hrs Laboratory Tests Test 08/03/17 23:55 08/04/17 00:33 08/04/17 00:34 08/04/17 04:40 Blood Gas Specimen Source Blood arterial Arterial Blood Date Drawn 08/04/2017 12:10:03 AM Arterial Blood pH (Temp corrected) 7.461 H Arterial Blood pCO2 (Temp correct) 34.3 L Arterial Blood pO2 (Temp corrected) 74.7 L Arterial Blood HCO3 23.9 Arterial Blood Base Excess 0.4 Arterial Blood Oxygen Saturation 95.0 Harish Test N/A Arterial Blood Gas Puncture Site A-Line Arterial Blood Carboxyhemoglobin 0.1 Arterial Blood Methemoglobin 0.3 Blood Gas A-a O2 Differential 34.0 H Oxyhemoglobin Percent 94.6 Total Hemoglobin 10.5 L Blood Gas Temperature 37.0 Blood Gas Modality ROOM AIR FiO2 21.0 Blood Gas Notified Whom UP Blood Gas Notified Time 08/04/2017 12:29:39 AM Troponin I < 0.012 < 0.012 White Blood Count 16.5 #H 13.5 H Red Blood Count 3.36 L 3.47 L Hemoglobin 9.1 L 9.4 L Hematocrit 28.4 L 29.4 L Mean Corpuscular Volume 84.5 84.7 Mean Corpuscular Hemoglobin 27.1 L 27.1 L Mean Corpuscular Hemoglobin Concent 32.0 32.0 Red Cell Distribution Width 14.8 H 14.9 H Platelet Count 346 337 Mean Platelet Volume 9.1 9.4 Neutrophils % 87.6 H 88.1 H Lymphocytes % 4.0 L 4.6 L Monocytes % 6.0 5.7 Eosinophils % 0.7 0.1 Basophils % 0.2 0.2 Nucleated Red Blood Cells % 0.0 0.0 Neutrophils # 14.4 H 11.9 H Lymphocytes # 0.7 L 0.6 L Monocytes # 1.0 H 0.8 Eosinophils # 0.1 0.0 Basophils # 0.0 0.0 Nucleated Red Blood Cells # 0.0 0.0 Prothrombin Time 16.0 H 15.2 H Prothrombin Time Ratio 1.3 1.2 INR International Normalized Ratio 1.27 1.19 Activated Partial Thromboplast Time 129.0 *H 46.7 H Fibrinogen 594.0 #H 616.0 #H Sodium Level 135 137 Potassium Level 4.5 4.6 Chloride Level 99 99 Carbon Dioxide Level 29 27 Anion Gap 12 16 Blood Urea Nitrogen 14 15 Creatinine 0.73 0.76 Glucose Level 125 119 Lactic Acid Level 1.2 Calcium Level 9.3 8.9 Phosphorus Level 4.2 4.1 Magnesium Level 2.0 2.1 Total Bilirubin 0.7 Direct Bilirubin 0.00 Indirect Bilirubin 0.7 Aspartate Amino Transf (AST/SGOT) 26 Alanine Aminotransferase (ALT/SGPT) 28 Alkaline Phosphatase 208 H Creatinine Kinase MB (Mass) 0.75 Total Protein 7.2 Albumin 3.1 L Thyroid Stimulating Hormone (TSH) 1.240 Medications Medications Current Medications Dutasteride (Avodart) 0.5 mg DAILY PO Last administered on 08/03/17 09:37; Admin Dose 0.5 MG; Start 07/22/17 at 09:00 Gabapentin (Neurontin) 300 mg QHS PO Last administered on 08/02/17 20:30; Admin Dose 300 MG; Start 07/22/17 at 21:00 Salmeterol Xinafoate/ Fluticasone (Advair 250/50 Diskus) 1 inh BID INH Last administered on 08/02/17 20:30; Admin Dose 1 INH; Start 07/22/17 at 09:00 Atorvastatin Calcium (Lipitor) 10 mg QAM PO Last administered on 08/03/17 09: 37; Admin Dose 10 MG; Start 07/22/17 at 09:00 Acetaminophen (Tylenol Tab) 650 mg QID PRN PO PAIN LEVEL 1-5; Start 07/21/17 at 23:30 Ondansetron HCl (Zofran Inj) 4 mg Q6H PRN IV NAUSEA AND/OR VOMITING Last administered on 08/04/17 02:15; Admin Dose 4 MG; Start 07/21/17 at 23:30 Acetaminophen/ Hydrocodone Bitart ([place] (5/325)) 1 tab Q4H PRN PO PAIN LEVEL 4 -7 Last administered on 08/03/17 16:41; Admin Dose 1 TAB; Start 07/21/17 at 23:30 Hydromorphone HCl (Dilaudid) 1 mg Q3H PRN IV PAIN Last administered on 08:22; Admin Dose 1 MG; Start 07/23/17 at 22:00 Famotidine (Pepcid) 20 mg BID PO Last administered on 08/03/17 09:37; Admin Dose 20 MG; Start 07/26/17 at 21:00 Metoprolol Tartrate (Lopressor) 12.5 mg BID PO Last administered on 08/03/17 09:42; Admin Dose 12.5 MG; Start 07/27/17 at 21:00 Docusate Sodium (Colace) 100 mg BID PO Last administered on 08/03/17 09:37; Admin Dose 100 MG; Start 07/28/17 at 21:00 Polyethylene Glycol (Miralax) 17 gm PRN PRN PO CONSTIPATION Last administered on 07/31/17 20:26; Admin Dose 17 GM; Start 07/28/17 at 15:00 Senna (Senokot) 1 tab DAILY PRN PO CONSTIPATION Last administered on 20:25; Admin Dose 1 TAB; Start 07/30/17 at 17:00 Mineral Oil (Mineral Oil) 30 ml BID PO Last administered on 08/02/17 20:30; Admin Dose 30 ML; Start 07/30/17 at 21:00 Furosemide (Lasix) 20 mg DAILY IV Last administered on 08/02/17 08:49; Admin Dose 20 MG; Start 08/01/17 at 09:00 Azithromycin (Zithromax) 500 mg DAILY PO Last administered on 08/03/17 09:40 ; Admin Dose 500 MG; Start 08/01/17 at 11:30 Lorazepam (Ativan) 0.5 mg Q6H PRN IV ANXIETY Last administered on 08/04/17 08 :52; Admin Dose 0.5 MG; Start 08/01/17 at 19:00 Apixaban 5 mg 5 mg BID PO ; Start 08/03/17 at 21:00; Status Future Hold Heparin Sodium (Porcine) 250 ml @ 10 mls/hr Q24H IV Last administered on 08/03 19:00; Admin Dose 10 MLS/HR; Start 08/03/17 at 19:00 Alteplase, Recombinant/ Sodium Chloride (Cathflo (Activase)/NS) 100 ml @ 10 mls /hr Q10H IV Last administered on 08/04/17 08:22; Admin Dose 10 MLS/HR; Start 08/03/17 at 20:30 Fentanyl (Sublimaze) 25 mcg Q1H PRN IV PAIN Last administered on 08/04/17 04: 10; Admin Dose 25 MCG; Start 08/04/17 at 00:00 Metoprolol Tartrate (Lopressor) 5 mg Q4H PRN IV ELEVATED HEART RATE; Start at 04:00 Famotidine 20 mg 20 mg BID IV ; Start 08/04/17 at 09:00 Sodium Chloride (NS) 1,000 ml @ 100 mls/hr Q10H IV Last administered on 04:20; Admin Dose 100 MLS/HR; Start 08/04/17 at 04:30 SANTOSH GRIFFIN MD Aug 04, 2017 08:59
[2017-08-04] MEDS: MINERAL OIL 30ML CUP PO SCH ×2 (09:00→20:35)
[2017-08-04] MEDS: FAMOTIDINE 20 MG TAB PO SCH (09:00)
--- NOTE | 2017-08-04 09:23 | PN ---
Date/Time of Note Date/Time of Note DATE: 08/04/17 TIME: 09:20 Assessment/Plan Lines/Catheters IV Catheter Type (from [facility]): Saline Lock Galvan in Place (from [facility]): Yes Assessment/Plan Chief Complaint/Hosp Course -Bilateral lower extremity atherosclerosis with disabling claudication and right popliteal artery aneurysm: It seems the patient may have findings of atheroemboli related to his popliteal artery aneurysm. -S/P Right fem-pop Stent grafting and Aortoiliac angiogram 07/23/2017 -Bilateral lower extremity acute venous thrombosis involving CFV, iliac veins and IVC: It seems the patient may have failed with Coumadin therapy as he had previous acute onsets of venous thrombosis with therapeutic INR's. Given the new findings of his CT scan of the lung, concern of cancer given his smoking history is there especially being hypercoagulable and failed Coumadin therapy 07/23/2017: -S/P Bilateral lower extremity venogram -S/P Bilateral CI, EI, CF veins and caval mechanical thrombectomy -S/P Thrombolysis Catheters 07/24/2017: -S/P Bilateral lysis check 07/25/2017 -S/P Bilateral Lysis check 08/03/2017 -S/P RLE angiogram, mechanical thrombectomy and thrombolysis -S/P RLE venogram, lysis catheter placement 08/04/2017 -S/P Lysis check -Appreciate hematology Evaluation -Recommend for a lung biopsy given the CT chest findings to rule out any underlying tumors (possible cause of worsened hypercoagulable state) when patient is more stable -Continue neurovascular checks Q1 -Strict flat bedrest for now -Check BMP, fibrinogen, CBC and coags Q6 for now -Continue TPA infusion bilateral catheters 1.0mg per hour -Continue Heparin infusion bilateral sheaths 500Units/hr (total 1000units/hr or adjust as needed to be therapeutic ptt 60-100) -Optimize vascular status (BP meds, diet, nutrition, exercise, sugar control, antiplatelets). -Discussed findings, plan and management with the patient and he understands. -Discussed limb salvage and realistic outcomes of our current findings and the possibility of limb loss with the patient. Patient fully understands the current findings of his hypercoagulable state and possibility of limb loss. Further, spoken with his family and the patient regarding serial interventions that may be needed and increased risks of intracranial hemorrhage, , stroke , MS, infection, thrombosis, device malfunction. We have discussed the plans with our multidisciplinary team and will continue our management per their recommendations -Thank you for allowing us to partake in the care of your patient. Please call with any questions. Problems: Subjective 24 Hr Interval Summary pt mentions improved RLE pain, able to move his toes and improved sensation, tolerated lysis check this morning Exam/Review of Systems Vital Signs Vitals Vital Signs Date Time Temp Pulse Resp B/P Pulse Ox O2 Delivery O2 Flow Rate FiO2 08/04/17 05:30 110 30 116/76 97 Room Air 08/04/17 04:00 98.1 Intake and Output 08/03/17 08/03/17 08/04/17 15:00 23:00 07:00 Intake Total 720 ml Output Total 300 ml 380 ml Balance 420 ml -380 ml Exam Free Text/Dictation GENERAL: Alert and oriented x3, PULMONARY: Coarse breath sounds bilaterally CARDIOVASCULAR: S1, S2 present ABDOMEN: Soft, nontender, nondistended. Bowel sounds positive. EXTREMITIES: -Right lower extremity palpable femoral pulse, nonpalpable pedal pulse. Motor and sensory improved (patient has proprioception, sensation of the forefoot, able to move toes and ankle, calf soft), Capillary refill 3, edema 2-3+ -Left lower extremity, palpable femoral pulse, palpable pedal pulse. Motor and sensory intact. Capillary refill 3, edema 2+ -Bilateral groin soft with catheters intact Results Result Diagram: 08/04/170 08/04/17439 MATT MCCULLOUGH MD Aug 04, 2017 09:23
[2017-08-04] MEDS: FAMOTIDINE 20 MG INJ IV SCH ×2 (09:43→20:37)
[2017-08-04] MEDS: FUROSEMIDE 20 MG INJ IV SCH (09:44)
[2017-08-04] MEDS: SALMETEROL/FLUTICASONE 250/50 INHA INH SCH ×2 (09:44→20:34)
[2017-08-04] MEDS: ATORVASTATIN 10 MG TAB PO SCH (09:45)
[2017-08-04] MEDS: DUTASTERIDE 0.5 MG CAP PO SCH (09:45)
[2017-08-04] MEDS: DOCUSATE SODIUM 100 MG CAP PO SCH ×2 (09:45→20:35)
[2017-08-04] MEDS: METOPROLOL 25 MG TAB PO SCH ×2 (09:45→20:35)
[2017-08-04] MEDS ORDERED: HEPARIN 25000 UNITS/D5W 250 ML (VPH) IV SCH (10:00)
--- NOTE | 2017-08-04 10:03 | OPR ---
Date/Time of Note Date/Time of Note DATE: 08/04/17 TIME: 09:59 Operative Report Preoperative Diagnosis RLE DVT, RLE ARTERIAL THROMBOSIS Postoperative Diagnosis SAME Operation/Procedure Performed LYSIS CHECK Surgeon see signature line Capping Machine Operator NONE Anesthesia Type: moderate sedation Estimated Blood Loss: none Transfusion none Specimen NONE Grafts/Implants none Complications none Pt Condition Post Procedure: critical Procedure Description SURGEON: Ash Mccullough MD PREOPERATIVE DIAGNOSES: 1. 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 POSTOPERATIVE DIAGNOSES: 1. 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 ANESTHESIA: Local with moderate sedation. ESTIMATED BLOOD LOSS: Minimal. COMPLICATIONS: None. HEPARIN: 450 units an hour per right groin sheath and left groin sheath. TPA: 1mg per hour via bilateral lysis catheters CONTRAST: As recorded. TRANSFUSIONS: None. ACCESS: 1. Left common femoral artery with a 6 Portuguese sheath. 2. Right common femoral vein with 6 Portuguese sheath. SEDATION: Under physician supervision with moderate sedation, fentanyl and Versed were administered intravenously under continuous monitoring by the interventional team and attending physician. Pulse oximeter, heart rate, blood pressures were continuously monitored by the interventional surgeon. The physician time was a total of 15 minutes of [id number] sedation time with the patient. INDICATIONS: This is a 72-year-old gentleman who had presented earlier in the week with bilateral lower extremity iliofemoral deep vein thrombosis and iliocaval deep vein thrombosis, and right popliteal artery aneurysm in which he had underwent stent grafting of the right fem-pop artery aneurysm and the lysis therapy of the bilateral lower extremity deep vein thrombosis. Subsequent to that, the patient did well with the lysis therapy after 3 days and was started on new treatment of anticoagulation with heparin and transitioned to Eliquis as the patient had failed the anticoagulation with Coumadin therapy. Today, the patient had refused to undergo lung biopsy secondary to new findings of pulmonary nodules and was transitioned from heparin to his Eliquis anticoagulation. It seems that the patient began to have symptoms of right lower extremity discomfort and pain and was identified to not have pedal pulses. The patient did not have much change in his edema; however, he began to have loss of motor and sensory. Based on these findings, the patient was informed of the alternatives, risks, and benefits and risks including but not limited to bleeding, thrombosis, embolization, myocardial infarction, , stroke, device malfunction, infection, nephrotoxicity, limb loss, nerve injury, intracranial hemorrhage, and the patient has agreed to proceed for lysis check PROCEDURES: 1. Lysis check via the left common femoral artery sheath. 2. Lysis check via the right common femoral vein sheath. 3. Right lower extremity angiogram 4. Right lower extremity Venography 5. Moderate sedation FINDINGS: The patient was identified to have improved venous channel along the right iliac venous system. The patient still has extensive residual iliocaval vein thrombosis. The right femoral-popliteal stent graft with a channel developing across the lysis catheter DESCRIPTION OF PROCEDURE: The patient was brought into the angio suite and positioned in supine position on the fluoroscopic table. Sedation was administered without any complications. The patient's bilateral groins were then shaved, prepped and draped in usual standard sterile fashion. Time out and appropriate site was marked and confirmed. Local anesthesia was then infiltrated in the region of the bilateral common femoral vein sheath. At this point, using Visipaque contrast, right lower extremity venography and angiography was performed which identified right side with improved venous drainage and still has residual thrombus. The patient still had also thrombus in the inferior vena cava in the region of the IVC filter. We identified patient having still extensive residual thrombosis of the right iliac venous system and right fempop segment Therefore, decision was made to continue with our lysis therapy through our bilateral lysis catheters for treatment distance provided by the catheters. The patient tolerated this procedure well and was taken back to the intensive care unit under close observation. The patient is to be receiving 1.0 mg of TPA via each lysis catheter and 500 units of heparin through each sheath as well. Patient tolerated procedure well. PLAN: Will plan to bring the patient back later today for lysis check and further evaluation if we require further thrombectomy ASH MCCULLOUGH MD Aug 04, 2017 10:03
[2017-08-04] MEDS: AZITHROMYCIN 250 MG TAB PO SCH (10:21)
--- NOTE | 2017-08-04 10:28 | CONS ---
Date/Time of Note Date/Time of Note DATE: 08/04/17 TIME: 10:21 Assessment/Plan Assessment/Plan Chief Complaint/Hosp Course IMPRESSION: 1. Preoperative evaluation prior to possible surgical vascular intervention.- negative trop x3 2. Hypertension. 3. Dyslipidemia. 4. Abnormal electrocardiogram with nonspecific ST and T-wave abnormalities. 5. Left lower extremity deep venous thrombosis status post inferior vena cava filter. Now with recurrent LE thrombosis requiring rep-eat lysis/thrombectomy and placement of perfusion catheter 6. Chronic obstructive pulmonary disease. 7. 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 Tachycardia-? S Tach recurrent after recurrent thrombosis requiring repeat thromobolysis/thrombectomy 9. Lung mass on CT Recc: -Back in ICU. Will follow HR closely on tele monitoing -REstarted on heparin -Follow perfusion catheter with TPA -Continue statin -Follow volume status closely and will start gentle lasix diuresis -Continue low dose BB as tolerated -12 lead ecg to document rhythm Problems: Consultation Date/Type/Reason Admit Date/Time Jul 21, 2017 at 23:03 Initial Consult Date 07/23/17 Type of Consultation: cardiology Reason for Consultation tachycardia Referring Provider: SEBAS LALA MD Exam/Review of Systems Vital Signs Vitals Vital Signs Date Time Temp Pulse Resp B/P Pulse Ox O2 Delivery O2 Flow Rate FiO2 08/04/17 09:45 105 27 127/71 97 Room Air 08/04/17 08:30 98.0 Intake and Output 08/03/17 08/03/17 08/04/17 15:00 23:00 07:00 Intake Total 720 ml Output Total 300 ml 380 ml Balance 420 ml -380 ml Exam Review of Systems: CONSTITUTIONAL: No fevers, chills. PULMONARY: No sob CARDIOVASCULAR: No chest pain/palpitations GASTROINTESTINAL: No nausea/vomiting. GENITOURINARY: No hematuria/dysuria. MUSCULOSKELETAL: No myagias/arthalgias. PSYCHIATRIC: The patient denies depression. NEUROLOGIC: No weakness Constitutional: alert, oriented Psych: no complaints Head: normocephalic ENMT: mucosa pink and moist Neck: jvd (9 cm water), supple Respiratory: diminished breath sounds (at bases/B) Cardiovascular: regular rate and rhythm Gastrointestinal: non-tender, soft Musculoskeletal: muscle tone (normal) Extremities: pitting pedal edema (bilateral R>L) Results Result Diagram: 08/04/17 0440 08/04/17 0440 Results 24 hrs Laboratory Tests Test 08/03/17 23:55 08/04/17 00:33 08/04/17 00:34 08/04/17 04:40 Blood Gas Specimen Source Blood arterial Arterial Blood Date Drawn 08/04/2017 12:10:03 AM Arterial Blood pH (Temp corrected) 7.461 H Arterial Blood pCO2 (Temp correct) 34.3 L Arterial Blood pO2 (Temp corrected) 74.7 L Arterial Blood HCO3 23.9 Arterial Blood Base Excess 0.4 Arterial Blood Oxygen Saturation 95.0 Harish Test N/A Arterial Blood Gas Puncture Site A-Line Arterial Blood Carboxyhemoglobin 0.1 Arterial Blood Methemoglobin 0.3 Blood Gas A-a O2 Differential 34.0 H Oxyhemoglobin Percent 94.6 Total Hemoglobin 10.5 L Blood Gas Temperature 37.0 Blood Gas Modality ROOM AIR FiO2 21.0 Blood Gas Notified Whom UP Blood Gas Notified Time 08/04/2017 12:29:39 AM Troponin I < 0.012 < 0.012 White Blood Count 16.5 #H 13.5 H Red Blood Count 3.36 L 3.47 L Hemoglobin 9.1 L 9.4 L Hematocrit 28.4 L 29.4 L Mean Corpuscular Volume 84.5 84.7 Mean Corpuscular Hemoglobin 27.1 L 27.1 L Mean Corpuscular Hemoglobin Concent 32.0 32.0 Red Cell Distribution Width 14.8 H 14.9 H Platelet Count 346 337 Mean Platelet Volume 9.1 9.4 Neutrophils % 87.6 H 88.1 H Lymphocytes % 4.0 L 4.6 L Monocytes % 6.0 5.7 Eosinophils % 0.7 0.1 Basophils % 0.2 0.2 Nucleated Red Blood Cells % 0.0 0.0 Neutrophils # 14.4 H 11.9 H Lymphocytes # 0.7 L 0.6 L Monocytes # 1.0 H 0.8 Eosinophils # 0.1 0.0 Basophils # 0.0 0.0 Nucleated Red Blood Cells # 0.0 0.0 Prothrombin Time 16.0 H 15.2 H Prothrombin Time Ratio 1.3 1.2 INR International Normalized Ratio 1.27 1.19 Activated Partial Thromboplast Time 129.0 *H 46.7 H Fibrinogen 594.0 #H 616.0 #H Sodium Level 135 137 Potassium Level 4.5 4.6 Chloride Level 99 99 Carbon Dioxide Level 29 27 Anion Gap 12 16 Blood Urea Nitrogen 14 15 Creatinine 0.73 0.76 Glucose Level 125 119 Lactic Acid Level 1.2 Calcium Level 9.3 8.9 Phosphorus Level 4.2 4.1 Magnesium Level 2.0 2.1 Total Bilirubin 0.7 Direct Bilirubin 0.00 Indirect Bilirubin 0.7 Aspartate Amino Transf (AST/SGOT) 26 Alanine Aminotransferase (ALT/SGPT) 28 Alkaline Phosphatase 208 H Creatinine Kinase MB (Mass) 0.75 Total Protein 7.2 Albumin 3.1 L Thyroid Stimulating Hormone (TSH) 1.240 Medications Medications Current Medications Dutasteride (Avodart) 0.5 mg DAILY PO Last administered on 08/04/17 09:45; Admin Dose 0.5 MG; Start 07/22/17 at 09:00 Gabapentin (Neurontin) 300 mg QHS PO Last administered on 08/02/17 20:30; Admin Dose 300 MG; Start 07/22/17 at 21:00 Salmeterol Xinafoate/ Fluticasone (Advair 250/50 Diskus) 1 inh BID INH Last administered on 08/04/17 09:44; Admin Dose 1 INH; Start 07/22/17 at 09:00 Atorvastatin Calcium (Lipitor) 10 mg QAM PO Last administered on 08/04/17 09: 45; Admin Dose 10 MG; Start 07/22/17 at 09:00 Acetaminophen (Tylenol Tab) 650 mg QID PRN PO PAIN LEVEL 1-5; Start 07/21/17 at 23:30 Ondansetron HCl (Zofran Inj) 4 mg Q6H PRN IV NAUSEA AND/OR VOMITING Last administered on 08/04/17 02:15; Admin Dose 4 MG; Start 07/21/17 at 23:30 Acetaminophen/ Hydrocodone Bitart ([place] (5/325)) 1 tab Q4H PRN PO PAIN LEVEL 4 -7 Last administered on 08/03/17 16:41; Admin Dose 1 TAB; Start 07/21/17 at 23:30 Hydromorphone HCl (Dilaudid) 1 mg Q3H PRN IV PAIN Last administered on 08:22; Admin Dose 1 MG; Start 07/23/17 at 22:00 Famotidine (Pepcid) 20 mg BID PO Last administered on 08/03/17 09:37; Admin Dose 20 MG; Start 07/26/17 at 21:00 Metoprolol Tartrate (Lopressor) 12.5 mg BID PO Last administered on 08/04/17 09:45; Admin Dose 12.5 MG; Start 07/27/17 at 21:00 Docusate Sodium (Colace) 100 mg BID PO Last administered on 08/04/17 09:45; Admin Dose 100 MG; Start 07/28/17 at 21:00 Polyethylene Glycol (Miralax) 17 gm PRN PRN PO CONSTIPATION Last administered on 07/31/17 20:26; Admin Dose 17 GM; Start 07/28/17 at 15:00 Senna (Senokot) 1 tab DAILY PRN PO CONSTIPATION Last administered on 20:25; Admin Dose 1 TAB; Start 07/30/17 at 17:00 Mineral Oil (Mineral Oil) 30 ml BID PO Last administered on 08/02/17 20:30; Admin Dose 30 ML; Start 07/30/17 at 21:00 Furosemide (Lasix) 20 mg DAILY IV Last administered on 08/04/17 09:44; Admin Dose 20 MG; Start 08/01/17 at 09:00 Azithromycin (Zithromax) 500 mg DAILY PO Last administered on 08/04/17 10:21 ; Admin Dose 500 MG; Start 08/01/17 at 11:30 Lorazepam (Ativan) 0.5 mg Q6H PRN IV ANXIETY Last administered on 08/04/17 08 :52; Admin Dose 0.5 MG; Start 08/01/17 at 19:00 Apixaban 5 mg 5 mg BID PO ; Start 08/03/17 at 21:00; Status Future Hold Alteplase, Recombinant/ Sodium Chloride (Cathflo (Activase)/NS) 100 ml @ 10 mls /hr Q10H IV Last administered on 08/04/17 08:22; Admin Dose 10 MLS/HR; Start 08/03/17 at 20:30 Fentanyl (Sublimaze) 25 mcg Q1H PRN IV PAIN Last administered on 08/04/17 04: 10; Admin Dose 25 MCG; Start 08/04/17 at 00:00 Metoprolol Tartrate (Lopressor) 5 mg Q4H PRN IV ELEVATED HEART RATE; Start at 04:00 Famotidine 20 mg 20 mg BID IV Last administered on 08/04/17 09:43; Admin Dose 20 MG; Start 08/04/17 at 09:00 Sodium Chloride 1,000 ml @ 100 mls/hr Q10H IV Last administered on 08/04/17 04:20; Admin Dose 100 MLS/HR; Start 08/04/17 at 04:30 Heparin Sodium (Porcine) (Heparin 20293 Units/250 ml) 250 ml @ 10 mls/hr Q24H IV ; Start 08/04/17 at 10:00 AIMEE LANDEROS Aug 04, 2017 10:28
[2017-08-04 10:42] LABS: PROTEIN/CREAT RATIO 0.47 RATIO
[2017-08-04 10:45] LABS: INR 1.22; PROTIME 15.5 Sec (12.2-14.2); PT RATIO 1.2
[2017-08-04 10:46] LABS: PARTIAL THROMBOPLASTIN TIME 44.1 Sec (25.0-35.0)
[2017-08-04] MEDS: HEPARIN 25000 UNITS/D5W 250 ML (VPH) IV SCH ×4 (11:19→18:18)
--- NOTE | 2017-08-04 12:10 | CONS ---
Date/Time of Note Date/Time of Note DATE: 08/04/17 TIME: 12:07 Assessment/Plan Assessment/Plan Additional Assessment/Plan Patient is currently on IV heparin via protocol as well as Alteplase for 450 U/ h. Assessment and recommendations; 1. Patient admitted with recurrent lower extremity DVT as well as arterial thrombosis requiring at least 2 angiographies with declotting. Patient developed catastrophic multiple lower extremity venous as well as arterial clots requiring again emergent angiography with clot lysis. Patient now has persistent right lower extremity arterial thrombosis, patient awaiting repeat angiography today. 2. Underlying severe COPD. 3. Pulmonary nodule which likely is benign based upon CT imaging. However there is a peripheral lesion which possibly is acute pneumonia, patient currently on Zithromax. 4. Etiology for hypercoagulable state is currently unclear. Patient does have a previous history of DVT. Continue current treatment. Once the patient is stable from a vascular perspective he can be worked up on outpatient basis regarding the lung nodule as well as right peripheral lung lesion. Consultation Date/Type/Reason Admit Date/Time Jul 21, 2017 at 23:03 Initial Consult Date 08/04/17 Type of Consultation: Pulmonary/critical care Referring Provider: SEBAS LALA MD 24 HR Interval Summary Free Text/Dictation Patient's condition is stable. Patient developed multiple lower extremity clots yesterday afternoon requiring emergent angiography and declotting again. Patient denies any shortness of breath, chest pain. General exam; elderly male, awake alert, currently in no distress. Exam/Review of Systems Vital Signs Vitals Vital Signs Date Time Temp Pulse Resp B/P Pulse Ox O2 Delivery O2 Flow Rate FiO2 08/04/17 09:45 105 27 127/71 97 Room Air 08/04/17 08:30 98.0 Intake and Output 08/03/17 08/03/17 08/04/17 15:00 23:00 07:00 Intake Total 720 ml Output Total 300 ml 380 ml Balance 420 ml -380 ml Exam HEENT exam; supple neck, no JVD. No lymphadenopathy. Midline trachea. No thyromegaly. Patient has multiple carious teeth. Chest exam; diminished but clear breath sounds. S1-S2 audible, no murmurs. Regular rhythm. Abdomen exam; soft, nontender. No organomegaly. Bowel sounds audible. Extremities; no peripheral edema. Dorsalis pedis and posterior tibial pulses not palpable in right lower extremity. FLIGHT DYNAMICIST exam; no focal deficit. Results Result Diagram: 08/04/17 0440 08/04/17 0440 Results 24 hrs Laboratory Tests Test 08/03/17 23:55 08/04/17 00:33 08/04/17 00:34 08/04/17 04:40 Blood Gas Specimen Source Blood arterial Arterial Blood Date Drawn 08/04/2017 12:10:03 AM Arterial Blood pH (Temp corrected) 7.461 H Arterial Blood pCO2 (Temp correct) 34.3 L Arterial Blood pO2 (Temp corrected) 74.7 L Arterial Blood HCO3 23.9 Arterial Blood Base Excess 0.4 Arterial Blood Oxygen Saturation 95.0 Harish Test N/A Arterial Blood Gas Puncture Site A-Line Arterial Blood Carboxyhemoglobin 0.1 Arterial Blood Methemoglobin 0.3 Blood Gas A-a O2 Differential 34.0 H Oxyhemoglobin Percent 94.6 Total Hemoglobin 10.5 L Blood Gas Temperature 37.0 Blood Gas Modality ROOM AIR FiO2 21.0 Blood Gas Notified Whom UP Blood Gas Notified Time 08/04/2017 12:29:39 AM Troponin I < 0.012 < 0.012 White Blood Count 16.5 #H 13.5 H Red Blood Count 3.36 L 3.47 L Hemoglobin 9.1 L 9.4 L Hematocrit 28.4 L 29.4 L Mean Corpuscular Volume 84.5 84.7 Mean Corpuscular Hemoglobin 27.1 L 27.1 L Mean Corpuscular Hemoglobin Concent 32.0 32.0 Red Cell Distribution Width 14.8 H 14.9 H Platelet Count 346 337 Mean Platelet Volume 9.1 9.4 Neutrophils % 87.6 H 88.1 H Lymphocytes % 4.0 L 4.6 L Monocytes % 6.0 5.7 Eosinophils % 0.7 0.1 Basophils % 0.2 0.2 Nucleated Red Blood Cells % 0.0 0.0 Neutrophils # 14.4 H 11.9 H Lymphocytes # 0.7 L 0.6 L Monocytes # 1.0 H 0.8 Eosinophils # 0.1 0.0 Basophils # 0.0 0.0 Nucleated Red Blood Cells # 0.0 0.0 Prothrombin Time 16.0 H 15.2 H Prothrombin Time Ratio 1.3 1.2 INR International Normalized Ratio 1.27 1.19 Activated Partial Thromboplast Time 129.0 *H 46.7 H Fibrinogen 594.0 #H 616.0 #H Sodium Level 135 137 Potassium Level 4.5 4.6 Chloride Level 99 99 Carbon Dioxide Level 29 27 Anion Gap 12 16 Blood Urea Nitrogen 14 15 Creatinine 0.73 0.76 Glucose Level 125 119 Lactic Acid Level 1.2 Calcium Level 9.3 8.9 Phosphorus Level 4.2 4.1 Magnesium Level 2.0 2.1 Total Bilirubin 0.7 Direct Bilirubin 0.00 Indirect Bilirubin 0.7 Aspartate Amino Transf (AST/SGOT) 26 Alanine Aminotransferase (ALT/SGPT) 28 Alkaline Phosphatase 208 H Creatinine Kinase MB (Mass) 0.75 Total Protein 7.2 Albumin 3.1 L Thyroid Stimulating Hormone (TSH) 1.240 Test 08/04/17 09:10 08/04/17 10:05 08/04/17 10:06 Urine Random Creatinine 135.95 Urine Random Sodium 102 H Urine Protein/Creatinine Ratio 0.47 Urine Total Protein 65.0 H Prothrombin Time 15.5 H Prothrombin Time Ratio 1.2 INR International Normalized Ratio 1.22 Activated Partial Thromboplast Time 44.1 H Fibrinogen 533.0 #H Uric Acid 4.5 Medications Medications Current Medications Dutasteride (Avodart) 0.5 mg DAILY PO Last administered on 08/04/17 09:45; Admin Dose 0.5 MG; Start 07/22/17 at 09:00 Gabapentin (Neurontin) 300 mg QHS PO Last administered on 08/02/17 20:30; Admin Dose 300 MG; Start 07/22/17 at 21:00 Salmeterol Xinafoate/ Fluticasone (Advair 250/50 Diskus) 1 inh BID INH Last administered on 08/04/17 09:44; Admin Dose 1 INH; Start 07/22/17 at 09:00 Atorvastatin Calcium (Lipitor) 10 mg QAM PO Last administered on 08/04/17 09: 45; Admin Dose 10 MG; Start 07/22/17 at 09:00 Acetaminophen (Tylenol Tab) 650 mg QID PRN PO PAIN LEVEL 1-5; Start 07/21/17 at 23:30 Ondansetron HCl (Zofran Inj) 4 mg Q6H PRN IV NAUSEA AND/OR VOMITING Last administered on 08/04/17 02:15; Admin Dose 4 MG; Start 07/21/17 at 23:30 Acetaminophen/ Hydrocodone Bitart ([place] (5/325)) 1 tab Q4H PRN PO PAIN LEVEL 4 -7 Last administered on 08/03/17 16:41; Admin Dose 1 TAB; Start 07/21/17 at 23:30 Hydromorphone HCl (Dilaudid) 1 mg Q3H PRN IV PAIN Last administered on 08:22; Admin Dose 1 MG; Start 07/23/17 at 22:00 Famotidine (Pepcid) 20 mg BID PO Last administered on 08/03/17 09:37; Admin Dose 20 MG; Start 07/26/17 at 21:00 Metoprolol Tartrate (Lopressor) 12.5 mg BID PO Last administered on 08/04/17 09:45; Admin Dose 12.5 MG; Start 07/27/17 at 21:00 Docusate Sodium (Colace) 100 mg BID PO Last administered on 08/04/17 09:45; Admin Dose 100 MG; Start 07/28/17 at 21:00 Polyethylene Glycol (Miralax) 17 gm PRN PRN PO CONSTIPATION Last administered on 07/31/17 20:26; Admin Dose 17 GM; Start 07/28/17 at 15:00 Senna (Senokot) 1 tab DAILY PRN PO CONSTIPATION Last administered on 20:25; Admin Dose 1 TAB; Start 07/30/17 at 17:00 Mineral Oil (Mineral Oil) 30 ml BID PO Last administered on 08/02/17 20:30; Admin Dose 30 ML; Start 07/30/17 at 21:00 Furosemide (Lasix) 20 mg DAILY IV Last administered on 08/04/17 09:44; Admin Dose 20 MG; Start 08/01/17 at 09:00 Azithromycin (Zithromax) 500 mg DAILY PO Last administered on 08/04/17 10:21 ; Admin Dose 500 MG; Start 08/01/17 at 11:30 Lorazepam (Ativan) 0.5 mg Q6H PRN IV ANXIETY Last administered on 08/04/17 08 :52; Admin Dose 0.5 MG; Start 08/01/17 at 19:00 Apixaban (Eliquis) 5 mg BID PO ; Start 08/03/17 at 21:00; Status Future Hold Fentanyl (Sublimaze) 25 mcg Q1H PRN IV PAIN Last administered on 08/04/17 10: 55; Admin Dose 25 MCG; Start 08/04/17 at 00:00 Metoprolol Tartrate (Lopressor) 5 mg Q4H PRN IV ELEVATED HEART RATE; Start at 04:00 Famotidine 20 mg 20 mg BID IV Last administered on 08/04/17 09:43; Admin Dose 20 MG; Start 08/04/17 at 09:00 Sodium Chloride 1,000 ml @ 100 mls/hr Q10H IV Last administered on 08/04/17 10:41; Admin Dose 100 MLS/HR; Start 08/04/17 at 04:30 Alteplase, Recombinant 10 mg/ Sodium Chloride 100 ml @ 10 mls/hr Q10H IV Last administered on 08/04/17 11:51; Admin Dose 10 MLS/HR; Start 08/04/17 at 11:00 Alteplase, Recombinant 10 mg/ Sodium Chloride 100 ml @ 10 mls/hr Q10H IV Last administered on 08/04/17 11:48; Admin Dose 10 MLS/HR; Start 08/04/17 at 11:00 Heparin Sodium (Porcine) 250 ml @ 10 mls/hr Q24H IV Last administered on 08/04 11:19; Admin Dose 6 MLS/HR; Start 08/04/17 at 11:00 Heparin Sodium (Porcine) (Heparin 18401 Units/250 ml) 250 ml @ 10 mls/hr Q24H IV Last administered on 08/04/17 11:20; Admin Dose 6 MLS/HR; Start 08/04/17 at 11:00 RICH RUVALCABA Aug 04, 2017 12:10
[2017-08-04 12:27] LABS: BASOPHILS % 0.3 % (0.0-2.0); EOSINOPHILS % 0.2 % (0.0-7.0); HEMATOCRIT 29.9 % (42.0-52.0); HEMOGLOBIN 9.7 g/dl (14.0-18.0); LYMPHOCYTES % 7.5 % (15.0-51.0); MEAN CORPUSCULAR HEMOGLOBIN 27.6 pg (29.0-33.0); MEAN CORPUSCULAR HGB CONC 32.4 g/dl (32.0-37.0); MEAN CORPUSCULAR VOLUME 85.2 fl (82.0-101.0); MEAN PLATELET VOLUME 9.1 fl (7.4-10.4); MONOCYTE # 0.9 10^3/ul (0.3-0.9); MONOCYTES % 7.2 % (0.0-11.0); NEUTROPHILS % 83.7 % (39.0-77.0); PLATELET COUNT 315 10^3/UL (140-415); RED BLOOD COUNT 3.51 10^6/ul (4.70-6.10); RED CELL DISTRIBUTION WIDTH 14.8 % (11.5-14.5); WHITE BLOOD COUNT 13.1 10^3/ul (4.8-10.8)
[2017-08-04 12:38] LABS: CALCIUM 8.8 mg/dl (8.4-10.2); CREATININE 0.77 mg/dl (0.61-1.24); MAGNESIUM 2.1 mg/dl (1.7-2.5); POTASSIUM 4.2 mmol/L (3.5-5.1)
--- NOTE | 2017-08-04 15:45 | PN ---
Date/Time of Note Date/Time of Note DATE: 08/04/17 TIME: 15:39 Assessment/Plan VTE Prophylaxis VTE Prophylaxis Intervention: heparin Lines/Catheters IV Catheter Type (from Nrs): ARTERIAL/VENOUS SHEATH Central line still needed: Yes Urinary Cath still in place: Yes Reason Cath still needed: urinary retention Assessment/Plan Chief Complaint/Hosp Course Patient patient is currently in ICU status post vascular interventions earlier today, currently on heparin and ATP. 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 Patient is currently on heparin and ATP. Continue ICU care of vascular surgery recommendations. -Right upper lobe lung mass. Dr Garay is following in pulmonology consultation. Patient is started on Zithromax with this recommendation for follow-up CT in 3 weeks. -Right lower extremity pain, continue [place] and morphine as needed for pain. 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 Mendiola is following in vascular surgery consultation. S/p thrombectomy. -Hypercoagulation work up is neg, Dr Amaya is following in hematology consultation. -Left leg DVT -COPD -Dyslipidemia Further recommendations based on clinical course. Plan of care discussed with Dr. Drake Problems: Exam/Review of Systems Vital Signs Vitals Vital Signs Date Time Temp Pulse Resp B/P Pulse Ox O2 Delivery O2 Flow Rate FiO2 08/04/17 14:30 107 29 114/77 99 Room Air 08/04/17 14:12 21 08/04/17 12:00 98.0 Intake and Output 08/03/17 08/03/17 08/04/17 15:00 23:00 07:00 Intake Total 720 ml Output Total 300 ml 380 ml Balance 420 ml -380 ml Exam Constitutional: alert, oriented Head: normocephalic Neck: supple Respiratory: normal air movement Cardiovascular: nl pulses Gastrointestinal: non-tender, soft Musculoskeletal: nl extremities to inspection Extremities: edema Neurological: nl mental status Results Result Diagram: 08/04/17 1210 08/04/17 1210 Results 24 hrs Laboratory Tests Test 08/03/17 23:55 08/04/17 00:33 08/04/17 00:34 08/04/17 04:40 Blood Gas Specimen Source Blood arterial Arterial Blood Date Drawn 08/04/2017 12:10:03 AM Arterial Blood pH (Temp corrected) 7.461 H Arterial Blood pCO2 (Temp correct) 34.3 L Arterial Blood pO2 (Temp corrected) 74.7 L Arterial Blood HCO3 23.9 Arterial Blood Base Excess 0.4 Arterial Blood Oxygen Saturation 95.0 Harish Test N/A Arterial Blood Gas Puncture Site A-Line Arterial Blood Carboxyhemoglobin 0.1 Arterial Blood Methemoglobin 0.3 Blood Gas A-a O2 Differential 34.0 H Oxyhemoglobin Percent 94.6 Total Hemoglobin 10.5 L Blood Gas Temperature 37.0 Blood Gas Modality ROOM AIR FiO2 21.0 Blood Gas Notified Whom UP Blood Gas Notified Time 08/04/2017 12:29:39 AM Troponin I < 0.012 < 0.012 White Blood Count 16.5 #H 13.5 H Red Blood Count 3.36 L 3.47 L Hemoglobin 9.1 L 9.4 L Hematocrit 28.4 L 29.4 L Mean Corpuscular Volume 84.5 84.7 Mean Corpuscular Hemoglobin 27.1 L 27.1 L Mean Corpuscular Hemoglobin Concent 32.0 32.0 Red Cell Distribution Width 14.8 H 14.9 H Platelet Count 346 337 Mean Platelet Volume 9.1 9.4 Neutrophils % 87.6 H 88.1 H Lymphocytes % 4.0 L 4.6 L Monocytes % 6.0 5.7 Eosinophils % 0.7 0.1 Basophils % 0.2 0.2 Nucleated Red Blood Cells % 0.0 0.0 Neutrophils # 14.4 H 11.9 H Lymphocytes # 0.7 L 0.6 L Monocytes # 1.0 H 0.8 Eosinophils # 0.1 0.0 Basophils # 0.0 0.0 Nucleated Red Blood Cells # 0.0 0.0 Prothrombin Time 16.0 H 15.2 H Prothrombin Time Ratio 1.3 1.2 INR International Normalized Ratio 1.27 1.19 Activated Partial Thromboplast Time 129.0 *H 46.7 H Fibrinogen 594.0 #H 616.0 #H Sodium Level 135 137 Potassium Level 4.5 4.6 Chloride Level 99 99 Carbon Dioxide Level 29 27 Anion Gap 12 16 Blood Urea Nitrogen 14 15 Creatinine 0.73 0.76 Glucose Level 125 119 Lactic Acid Level 1.2 Calcium Level 9.3 8.9 Phosphorus Level 4.2 4.1 Magnesium Level 2.0 2.1 Total Bilirubin 0.7 Direct Bilirubin 0.00 Indirect Bilirubin 0.7 Aspartate Amino Transf (AST/SGOT) 26 Alanine Aminotransferase (ALT/SGPT) 28 Alkaline Phosphatase 208 H Creatinine Kinase MB (Mass) 0.75 Total Protein 7.2 Albumin 3.1 L Thyroid Stimulating Hormone (TSH) 1.240 Test 08/04/17 09:10 08/04/17 10:05 08/04/17 10:06 08/04/17 12:10 Urine Eosinophils % 0.0 Urine Random Creatinine 135.95 Urine Random Sodium 102 H Urine Protein/Creatinine Ratio 0.47 Urine Total Protein 65.0 H Prothrombin Time 15.5 H Prothrombin Time Ratio 1.2 INR International Normalized Ratio 1.22 Activated Partial Thromboplast Time 44.1 H Fibrinogen 533.0 #H Uric Acid 4.5 White Blood Count 13.1 H Red Blood Count 3.51 L Hemoglobin 9.7 L Hematocrit 29.9 L Mean Corpuscular Volume 85.2 Mean Corpuscular Hemoglobin 27.6 L Mean Corpuscular Hemoglobin Concent 32.4 Red Cell Distribution Width 14.8 H Platelet Count 315 Mean Platelet Volume 9.1 Neutrophils % 83.7 H Lymphocytes % 7.5 L Monocytes % 7.2 Eosinophils % 0.2 Basophils % 0.3 Nucleated Red Blood Cells % 0.0 Neutrophils # 11.0 H Lymphocytes # 1.0 Monocytes # 0.9 Eosinophils # 0.0 Basophils # 0.0 Nucleated Red Blood Cells # 0.0 Platelet Func Collagen/Epinephrine 101 Platelet Function Collagen/ADP Sodium Level 138 Potassium Level 4.2 Chloride Level 99 Carbon Dioxide Level 28 Anion Gap 15 Blood Urea Nitrogen 16 Creatinine 0.77 Glucose Level 109 Calcium Level 8.8 Phosphorus Level 4.0 Magnesium Level 2.1 Medications Medications Current Medications Dutasteride (Avodart) 0.5 mg DAILY PO Last administered on 08/04/17 09:45; Admin Dose 0.5 MG; Start 07/22/17 at 09:00 Gabapentin (Neurontin) 300 mg QHS PO Last administered on 08/02/17 20:30; Admin Dose 300 MG; Start 07/22/17 at 21:00 Salmeterol Xinafoate/ Fluticasone (Advair 250/50 Diskus) 1 inh BID INH Last administered on 08/04/17 09:44; Admin Dose 1 INH; Start 07/22/17 at 09:00 Atorvastatin Calcium (Lipitor) 10 mg QAM PO Last administered on 08/04/17 09: 45; Admin Dose 10 MG; Start 07/22/17 at 09:00 Acetaminophen (Tylenol Tab) 650 mg QID PRN PO PAIN LEVEL 1-5; Start 07/21/17 at 23:30 Ondansetron HCl (Zofran Inj) 4 mg Q6H PRN IV NAUSEA AND/OR VOMITING Last administered on 08/04/17 02:15; Admin Dose 4 MG; Start 07/21/17 at 23:30 Acetaminophen/ Hydrocodone Bitart ([place] (5/325)) 1 tab Q4H PRN PO PAIN LEVEL 4 -7 Last administered on 08/03/17 16:41; Admin Dose 1 TAB; Start 07/21/17 at 23:30 Hydromorphone HCl (Dilaudid) 1 mg Q3H PRN IV PAIN Last administered on 12:45; Admin Dose 1 MG; Start 07/23/17 at 22:00 Famotidine (Pepcid) 20 mg BID PO Last administered on 08/03/17 09:37; Admin Dose 20 MG; Start 07/26/17 at 21:00 Metoprolol Tartrate (Lopressor) 12.5 mg BID PO Last administered on 08/04/17 09:45; Admin Dose 12.5 MG; Start 07/27/17 at 21:00 Docusate Sodium (Colace) 100 mg BID PO Last administered on 08/04/17 09:45; Admin Dose 100 MG; Start 07/28/17 at 21:00 Polyethylene Glycol (Miralax) 17 gm PRN PRN PO CONSTIPATION Last administered on 07/31/17 20:26; Admin Dose 17 GM; Start 07/28/17 at 15:00 Senna (Senokot) 1 tab DAILY PRN PO CONSTIPATION Last administered on 20:25; Admin Dose 1 TAB; Start 07/30/17 at 17:00 Mineral Oil (Mineral Oil) 30 ml BID PO Last administered on 08/02/17 20:30; Admin Dose 30 ML; Start 07/30/17 at 21:00 Furosemide (Lasix) 20 mg DAILY IV Last administered on 08/04/17 09:44; Admin Dose 20 MG; Start 08/01/17 at 09:00 Azithromycin (Zithromax) 500 mg DAILY PO Last administered on 08/04/17 10:21 ; Admin Dose 500 MG; Start 08/01/17 at 11:30 Lorazepam (Ativan) 0.5 mg Q6H PRN IV ANXIETY Last administered on 08/04/17 08 :52; Admin Dose 0.5 MG; Start 08/01/17 at 19:00 Apixaban (Eliquis) 5 mg BID PO ; Start 08/03/17 at 21:00; Status Future Hold Fentanyl (Sublimaze) 25 mcg Q1H PRN IV PAIN Last administered on 08/04/17 15: 14; Admin Dose 25 MCG; Start 08/04/17 at 00:00 Metoprolol Tartrate (Lopressor) 5 mg Q4H PRN IV ELEVATED HEART RATE; Start at 04:00 Famotidine 20 mg 20 mg BID IV Last administered on 08/04/17 09:43; Admin Dose 20 MG; Start 08/04/17 at 09:00 Sodium Chloride 1,000 ml @ 100 mls/hr Q10H IV Last administered on 08/04/17 10:41; Admin Dose 100 MLS/HR; Start 08/04/17 at 04:30 Alteplase, Recombinant 10 mg/ Sodium Chloride 100 ml @ 10 mls/hr Q10H IV Last administered on 08/04/17 11:51; Admin Dose 10 MLS/HR; Start 08/04/17 at 11:00 Alteplase, Recombinant 10 mg/ Sodium Chloride 100 ml @ 10 mls/hr Q10H IV Last administered on 08/04/17 11:48; Admin Dose 10 MLS/HR; Start 08/04/17 at 11:00 Heparin Sodium (Porcine) 250 ml @ 10 mls/hr Q24H IV Last administered on 08/04 11:19; Admin Dose 6 MLS/HR; Start 08/04/17 at 11:00 Heparin Sodium (Porcine) (Heparin 64013 Units/250 ml) 250 ml @ 10 mls/hr Q24H IV Last administered on 08/04/17 11:20; Admin Dose 6 MLS/HR; Start 08/04/17 at 11:00 LISETTE MEDINA Aug 04, 2017 15:45
[2017-08-04 16:39] LABS: INR 1.29; PROTIME 16.2 Sec (12.2-14.2); PT RATIO 1.3
[2017-08-04 16:40] LABS: PARTIAL THROMBOPLASTIN TIME 56.8 Sec (25.0-35.0)
--- NOTE | 2017-08-04 16:43 | CONS ---
Date/Time of Note Date/Time of Note DATE: 08/04/17 TIME: 16:38 Assessment/Plan Assessment/Plan Chief Complaint/Hosp Course #RLE Lung mass with hilar adenopathy -given CT findings there is increased concern for lung cancer, especially given his smoking history -the CT findings were discussed in detail with the patient who understands he will need a biopsy to rule out cancer -at this time, patient has changed his mind and does not want to pursue a biopsy in the hospital. -as explained to the patient we can perform an out patient PET CT and biopsy when he is comfortable -although this mass has been there for years, the hilar adenopathy makes me concerned for underlying cancer. 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 Pt likely having thromboemboli form this aneurism -continue Plavix Problems: Consultation Date/Type/Reason Admit Date/Time Jul 21, 2017 at 23:03 Initial Consult Date 07/23/17 Type of Consultation: Hematology Reason for Consultation BLE DVT Referring Provider: SEBAS LALA MD 24 HR Interval Summary Free Text/Dictation after heparin drip was stopped and prior to restarting Eliquis pt again suffered from an acute RLE venous thrombosis as well as arterial thrombosis. Pt has TPA in place and is currently in the ICU on a heparin gtt Exam/Review of Systems Vital Signs Vitals Vital Signs Date Time Temp Pulse Resp B/P Pulse Ox O2 Delivery O2 Flow Rate FiO2 08/04/17 14:30 107 29 114/77 99 Room Air 08/04/17 14:12 21 08/04/17 12:00 98.0 Intake and Output 08/03/17 08/03/17 08/04/17 15:00 23:00 07:00 Intake Total 720 ml Output Total 300 ml 380 ml Balance 420 ml -380 ml Exam Constitutional: alert, oriented Psych: anxiety, depression, no complaints Head: normocephalic Eyes: nl conjunctiva ENMT: nl external ears & nose Neck: supple Respiratory: clear to auscultation, normal air movement Cardiovascular: regular rate and rhythm Gastrointestinal: soft Musculoskeletal: nl extremities to inspection Extremities: other, pitting pedal edema (TPA in place, pulses felt. chronic venous stasis changes) Results Result Diagram: 08/04/17 1210 08/04/17 1210 Results 24 hrs Laboratory Tests Test 08/03/17 23:55 08/04/17 00:33 08/04/17 00:34 08/04/17 04:40 Blood Gas Specimen Source Blood arterial Arterial Blood Date Drawn 08/04/2017 12:10:03 AM Arterial Blood pH (Temp corrected) 7.461 H Arterial Blood pCO2 (Temp correct) 34.3 L Arterial Blood pO2 (Temp corrected) 74.7 L Arterial Blood HCO3 23.9 Arterial Blood Base Excess 0.4 Arterial Blood Oxygen Saturation 95.0 Harish Test N/A Arterial Blood Gas Puncture Site A-Line Arterial Blood Carboxyhemoglobin 0.1 Arterial Blood Methemoglobin 0.3 Blood Gas A-a O2 Differential 34.0 H Oxyhemoglobin Percent 94.6 Total Hemoglobin 10.5 L Blood Gas Temperature 37.0 Blood Gas Modality ROOM AIR FiO2 21.0 Blood Gas Notified Whom UP Blood Gas Notified Time 08/04/2017 12:29:39 AM Troponin I < 0.012 < 0.012 White Blood Count 16.5 #H 13.5 H Red Blood Count 3.36 L 3.47 L Hemoglobin 9.1 L 9.4 L Hematocrit 28.4 L 29.4 L Mean Corpuscular Volume 84.5 84.7 Mean Corpuscular Hemoglobin 27.1 L 27.1 L Mean Corpuscular Hemoglobin Concent 32.0 32.0 Red Cell Distribution Width 14.8 H 14.9 H Platelet Count 346 337 Mean Platelet Volume 9.1 9.4 Neutrophils % 87.6 H 88.1 H Lymphocytes % 4.0 L 4.6 L Monocytes % 6.0 5.7 Eosinophils % 0.7 0.1 Basophils % 0.2 0.2 Nucleated Red Blood Cells % 0.0 0.0 Neutrophils # 14.4 H 11.9 H Lymphocytes # 0.7 L 0.6 L Monocytes # 1.0 H 0.8 Eosinophils # 0.1 0.0 Basophils # 0.0 0.0 Nucleated Red Blood Cells # 0.0 0.0 Prothrombin Time 16.0 H 15.2 H Prothrombin Time Ratio 1.3 1.2 INR International Normalized Ratio 1.27 1.19 Activated Partial Thromboplast Time 129.0 *H 46.7 H Fibrinogen 594.0 #H 616.0 #H Sodium Level 135 137 Potassium Level 4.5 4.6 Chloride Level 99 99 Carbon Dioxide Level 29 27 Anion Gap 12 16 Blood Urea Nitrogen 14 15 Creatinine 0.73 0.76 Glucose Level 125 119 Lactic Acid Level 1.2 Calcium Level 9.3 8.9 Phosphorus Level 4.2 4.1 Magnesium Level 2.0 2.1 Total Bilirubin 0.7 Direct Bilirubin 0.00 Indirect Bilirubin 0.7 Aspartate Amino Transf (AST/SGOT) 26 Alanine Aminotransferase (ALT/SGPT) 28 Alkaline Phosphatase 208 H Creatinine Kinase MB (Mass) 0.75 Total Protein 7.2 Albumin 3.1 L Thyroid Stimulating Hormone (TSH) 1.240 Test 08/04/17 09:10 08/04/17 10:05 08/04/17 10:06 08/04/17 12:10 Urine Eosinophils % 0.0 Urine Random Creatinine 135.95 Urine Random Sodium 102 H Urine Protein/Creatinine Ratio 0.47 Urine Total Protein 65.0 H Prothrombin Time 15.5 H Prothrombin Time Ratio 1.2 INR International Normalized Ratio 1.22 Activated Partial Thromboplast Time 44.1 H Fibrinogen 533.0 #H Uric Acid 4.5 White Blood Count 13.1 H Red Blood Count 3.51 L Hemoglobin 9.7 L Hematocrit 29.9 L Mean Corpuscular Volume 85.2 Mean Corpuscular Hemoglobin 27.6 L Mean Corpuscular Hemoglobin Concent 32.4 Red Cell Distribution Width 14.8 H Platelet Count 315 Mean Platelet Volume 9.1 Neutrophils % 83.7 H Lymphocytes % 7.5 L Monocytes % 7.2 Eosinophils % 0.2 Basophils % 0.3 Nucleated Red Blood Cells % 0.0 Neutrophils # 11.0 H Lymphocytes # 1.0 Monocytes # 0.9 Eosinophils # 0.0 Basophils # 0.0 Nucleated Red Blood Cells # 0.0 Platelet Func Collagen/Epinephrine 101 Platelet Function Collagen/ADP Sodium Level 138 Potassium Level 4.2 Chloride Level 99 Carbon Dioxide Level 28 Anion Gap 15 Blood Urea Nitrogen 16 Creatinine 0.77 Glucose Level 109 Calcium Level 8.8 Phosphorus Level 4.0 Magnesium Level 2.1 Medications Medications Current Medications Dutasteride (Avodart) 0.5 mg DAILY PO Last administered on 08/04/17 09:45; Admin Dose 0.5 MG; Start 07/22/17 at 09:00 Gabapentin (Neurontin) 300 mg QHS PO Last administered on 08/02/17 20:30; Admin Dose 300 MG; Start 07/22/17 at 21:00 Salmeterol Xinafoate/ Fluticasone (Advair 250/50 Diskus) 1 inh BID INH Last administered on 08/04/17 09:44; Admin Dose 1 INH; Start 07/22/17 at 09:00 Atorvastatin Calcium (Lipitor) 10 mg QAM PO Last administered on 08/04/17 09: 45; Admin Dose 10 MG; Start 07/22/17 at 09:00 Acetaminophen (Tylenol Tab) 650 mg QID PRN PO PAIN LEVEL 1-5; Start 07/21/17 at 23:30 Ondansetron HCl (Zofran Inj) 4 mg Q6H PRN IV NAUSEA AND/OR VOMITING Last administered on 08/04/17 02:15; Admin Dose 4 MG; Start 07/21/17 at 23:30 Acetaminophen/ Hydrocodone Bitart (Moran (5/325)) 1 tab Q4H PRN PO PAIN LEVEL 4 -7 Last administered on 08/03/17 16:41; Admin Dose 1 TAB; Start 07/21/17 at 23:30 Hydromorphone HCl (Dilaudid) 1 mg Q3H PRN IV PAIN Last administered on 12:45; Admin Dose 1 MG; Start 07/23/17 at 22:00 Famotidine (Pepcid) 20 mg BID PO Last administered on 08/03/17 09:37; Admin Dose 20 MG; Start 07/26/17 at 21:00 Metoprolol Tartrate (Lopressor) 12.5 mg BID PO Last administered on 08/04/17 09:45; Admin Dose 12.5 MG; Start 07/27/17 at 21:00 Docusate Sodium (Colace) 100 mg BID PO Last administered on 08/04/17 09:45; Admin Dose 100 MG; Start 07/28/17 at 21:00 Polyethylene Glycol (Miralax) 17 gm PRN PRN PO CONSTIPATION Last administered on 07/31/17 20:26; Admin Dose 17 GM; Start 07/28/17 at 15:00 Senna (Senokot) 1 tab DAILY PRN PO CONSTIPATION Last administered on 20:25; Admin Dose 1 TAB; Start 07/30/17 at 17:00 Mineral Oil (Mineral Oil) 30 ml BID PO Last administered on 08/02/17 20:30; Admin Dose 30 ML; Start 07/30/17 at 21:00 Furosemide (Lasix) 20 mg DAILY IV Last administered on 08/04/17 09:44; Admin Dose 20 MG; Start 08/01/17 at 09:00 Azithromycin (Zithromax) 500 mg DAILY PO Last administered on 08/04/17 10:21 ; Admin Dose 500 MG; Start 08/01/17 at 11:30 Lorazepam (Ativan) 0.5 mg Q6H PRN IV ANXIETY Last administered on 08/04/17 08 :52; Admin Dose 0.5 MG; Start 08/01/17 at 19:00 Apixaban (Eliquis) 5 mg BID PO ; Start 08/03/17 at 21:00; Status Future Hold Fentanyl (Sublimaze) 25 mcg Q1H PRN IV PAIN Last administered on 08/04/17 15: 14; Admin Dose 25 MCG; Start 08/04/17 at 00:00 Metoprolol Tartrate (Lopressor) 5 mg Q4H PRN IV ELEVATED HEART RATE; Start at 04:00 Famotidine 20 mg 20 mg BID IV Last administered on 08/04/17 09:43; Admin Dose 20 MG; Start 08/04/17 at 09:00 Sodium Chloride 1,000 ml @ 100 mls/hr Q10H IV Last administered on 08/04/17 10:41; Admin Dose 100 MLS/HR; Start 08/04/17 at 04:30 Alteplase, Recombinant 10 mg/ Sodium Chloride 100 ml @ 10 mls/hr Q10H IV Last administered on 08/04/17 11:51; Admin Dose 10 MLS/HR; Start 08/04/17 at 11:00 Alteplase, Recombinant 10 mg/ Sodium Chloride 100 ml @ 10 mls/hr Q10H IV Last administered on 08/04/17 11:48; Admin Dose 10 MLS/HR; Start 08/04/17 at 11:00 Heparin Sodium (Porcine) 250 ml @ 10 mls/hr Q24H IV Last administered on 08/04 11:19; Admin Dose 6 MLS/HR; Start 08/04/17 at 11:00 Heparin Sodium (Porcine) (Heparin 32868 Units/250 ml) 250 ml @ 10 mls/hr Q24H IV Last administered on 08/04/17 11:20; Admin Dose 6 MLS/HR; Start 08/04/17 at 11:00 AMARA MCINTYRE M.D. Aug 04, 2017 16:43
[2017-08-04] MEDS ORDERED: IODIXANOL LOCM 100 ML BTL ONE (17:29)
--- NOTE | 2017-08-04 17:57 | SIPON ---
Date/Time of Note Date/Time of Note DATE: 08/03/17 TIME: 23:55 Operative Report Preoperative Diagnosis 1. RLE DVT 2. RLE OCCLUDED FEMORAL-POPLITEAL STENT GRAFT Postoperative Diagnosis SAME Operation/Procedure Performed 1. Ultrasound-guided access of the left common femoral artery. 2. Ultrasound-guided access of the right common femoral vein. 3. Third order selection of the right superficial femoral artery. 4. Mechanical and pharmacological thrombolysis and thrombectomy of the femoral- popliteal occluded stent grafts. 5. Placement of lysis leg treatment catheter of 20 cm in length placed in the femoral-popliteal segments in the arterial vasculature. 6. Left iliocaval venogram. 7. Lysis catheter placement in the right iliocaval segment with a treatment distance of 15 cm. Surgeon see signature line gift shop assistant NONE Anesthesia: moderate sedation Estimated blood loss: 10 - 50 ml's Transfusion Required none Specimen BLOOD CLOT FROM THROMBOSED FEMOROPOPLITEAL SEGMENT Grafts/Implants none Complications none MATT MCCULLOUGH MD Aug 04, 2017 17:57
--- NOTE | 2017-08-04 17:58 | HPN ---
Date/Time of Note Date/Time of Note DATE: 08/04/17 TIME: 17:58 Interval H&P Admission Note Pt. seen H&P reviewed: Systems changes noted below PATIENT HAS IMPROVED SENSORY AND MOTOR FUNCTION AND DECREASED PAIN MATT MCCULLOUGH MD Aug 04, 2017 17:58
--- NOTE | 2017-08-04 18:04 | OPR ---
Date/Time of Note Date/Time of Note DATE: 08/04/17 TIME: 17:58 Operative Report Procedure Date: Aug 04, 2017 Preoperative Diagnosis RIGHT ILIOVACAL THROMBOSIS RIGHT FEMORAL-POPLITEAL THROMBOSED STENT GRAFT Postoperative Diagnosis SAME Surgeon see signature line Radiologist Chief Of Breast Imaging NONE Estimated Blood Loss: none Transfusion none Specimen NONE Grafts/Implants none Complications none Pt Condition Post Procedure: critical Disposition: other (ICU) Procedure Description SURGEON: Ash Mccullough MD PREOPERATIVE DIAGNOSES: 1. Right femoral popliteal artery aneurysm 2. Right femoral-popliteal artery thrombosed stent graft 3. Right femoral popliteal DVT 4. Iliocaval thrombosis. POSTOPERATIVE DIAGNOSES: Same ANESTHESIA: Local with moderate sedation. ESTIMATED BLOOD LOSS: Minimal. COMPLICATIONS: None. HEPARIN: 500 units an hour per right groin sheath and left groin sheath. TPA: 1mg per hour via bilateral lysis catheters CONTRAST: As recorded. TRANSFUSIONS: None. ACCESS: 1. Left common femoral artery with a 6 British sheath. 2. Right common femoral vein with 6 British sheath. SEDATION: Under physician supervision with moderate sedation, fentanyl and Versed were administered intravenously under continuous monitoring by the interventional team and attending physician. Pulse oximeter, heart rate, blood pressures were continuously monitored by the interventional surgeon. The physician time was a total of 15 minutes of [id number] sedation time with the patient. INDICATIONS: This is a 72-year-old gentleman who had presented earlier in the week with bilateral lower extremity iliofemoral deep vein thrombosis and iliocaval deep vein thrombosis, and right popliteal artery aneurysm in which he had underwent stent grafting of the right fem-pop artery aneurysm and the lysis therapy of the bilateral lower extremity deep vein thrombosis. Subsequent to that, the patient did well with the lysis therapy after 3 days and was started on new treatment of anticoagulation with heparin and transitioned to Eliquis as the patient had failed the anticoagulation with Coumadin therapy. Today, the patient had refused to undergo lung biopsy secondary to new findings of pulmonary nodules and was transitioned from heparin to his Eliquis anticoagulation. It seems that the patient began to have symptoms of right lower extremity discomfort and pain and was identified to not have pedal pulses. The patient did not have much change in his edema; however, he began to have loss of motor and sensory. Based on these findings, the patient was informed of the alternatives, risks, and benefits and risks including but not limited to bleeding, thrombosis, embolization, myocardial infarction, , stroke, device malfunction, infection, nephrotoxicity, limb loss, nerve injury, intracranial hemorrhage, and the patient has agreed to proceed for lysis check PROCEDURES: 1. Lysis check via the left common femoral artery sheath. 2. Lysis check via the right common femoral vein sheath. 3. Right lower extremity angiogram 4. Right lower extremity Venography 5. Moderate sedation FINDINGS: The patient was continues to have improved flow along the iliocaval. The patient still has residual iliocaval vein thrombosis and within the IVC filter. The right femoral-popliteal stent graft with an improved channel developing across the lysis catheter DESCRIPTION OF PROCEDURE: The patient was brought into the angio suite and positioned in supine position on the fluoroscopic table. Sedation was administered without any complications. The patient's bilateral groins were then shaved, prepped and draped in usual standard sterile fashion. Time out and appropriate site was marked and confirmed. Local anesthesia was then infiltrated in the region of the bilateral common femoral vein sheath. At this point, using Visipaque contrast, right lower extremity venography and angiography was performed which identified right side with improved venous drainage and still has residual thrombus. The patient still had also thrombus in the inferior vena cava in the region of the IVC filter. We identified patient having still extensive residual thrombosis of the right iliac venous system and right fempop segment Therefore, decision was made to continue with our lysis therapy through our bilateral lysis catheters for treatment distance provided by the catheters. The patient tolerated this procedure well and was taken back to the intensive care unit under close observation. The patient is to be receiving 1.0 mg of TPA via each lysis catheter and 500 units of heparin through each sheath as well. Patient tolerated procedure well. PLAN: Will plan to bring the patient back tomorrow for lysis check and further evaluation if we require further thrombectomy ASH MCCULLOUGH MD Aug 04, 2017 18:04
--- NOTE | 2017-08-04 18:07 | SIPON ---
Date/Time of Note Date/Time of Note DATE: 08/04/17 TIME: 8:06 Operative Report Preoperative Diagnosis RIGHT ILIOVACAL THROMBOSIS RIGHT FEMORAL-POPLITEAL THROMBOSED STENT GRAFT Postoperative Diagnosis same Operation/Procedure Performed lysis check Surgeon see signature line educational assistant teacher none Anesthesia: moderate sedation Estimated blood loss: minimal Transfusion Required none Specimen none Grafts/Implants none Complications none MATT MCCULLOUGH MD Aug 04, 2017 18:07
--- NOTE | 2017-08-04 18:08 | SIPON ---
Date/Time of Note Date/Time of Note DATE: 08/04/17 TIME: 18:07 Operative Report Preoperative Diagnosis RIGHT ILIOVACAL THROMBOSIS RIGHT FEMORAL-POPLITEAL THROMBOSED STENT GRAFT Postoperative Diagnosis same Operation/Procedure Performed Repeat lysis check of bilateral catheters Surgeon see signature line special education teaching assistant none Anesthesia: moderate sedation Estimated blood loss: none Transfusion Required none Specimen none Grafts/Implants none Complications none MATT MCCULLOUGH MD Aug 04, 2017 18:08
--- NOTE | 2017-08-04 18:47 | CONS ---
Date/Time of Note Date/Time of Note DATE: 08/04/17 TIME: 17:46 Assessment/Plan Assessment/Plan Chief Complaint/Hosp Course - Leukocytosis - likely reactive 2/2 recurrent DVT - Occlusive DVT throughout RLE per venous doppler 08/03/2017; s/p repeat angiography 08/04/2017 - Right femoral popliteal aneurysm and BLE DVT and inferior vena cava thrombosis , s/p thrombectomy 07/23/2017 - H/o DVT s/p IVC filter - RUL mass-like lesion concerning for malignancy/Pulmonary nodule with possible PNA per pulmonary - declining biopsy - Bilateral adrenal nodules concerning for malignancy per CT - COPD/emphysema - Hypercoagulation - Dyslipidemia Recommendations: - complete 5 day course of Azithromycin tomorrow, then monitor closely off antibiotics - trend WBC - pending: procalcitonin (ordered on 08/01/2017) - probiotics Management d/w pt, his , RN Mansi and Dr. Faria Critical care time spent: 45 min Problems: Consultation Date/Type/Reason Admit Date/Time Jul 21, 2017 at 23:03 Initial Consult Date 08/04/17 Type of Consultation: Infectious Disease Referring Provider: SEBAS LALA MD 24 HR Interval Summary Free Text/Dictation C/o RLE pain rating 9/10 and pt is being medicated with Dilaudid. Denies SOB. C/o acid reflux with nausea but no vomiting, diarrhea or dysuria. S/p R leg arteriogram with improvement in RLE pain and color; remains in ICU on heparin drip and BLE TPA (alteplase) per d/w nursing staff. Exam/Review of Systems Vital Signs Vitals Vital Signs Date Time Temp Pulse Resp B/P Pulse Ox O2 Delivery O2 Flow Rate FiO2 08/04/17 16:00 106 08/04/17 14:30 29 114/77 99 Room Air 08/04/17 14:12 21 08/04/17 12:00 98.0 Intake and Output 08/03/17 08/03/17 08/04/17 15:00 23:00 07:00 Intake Total 720 ml Output Total 300 ml 380 ml Balance 420 ml -380 ml Exam Constitutional: alert, oriented, other (thin), well developed Psych: anxiety Head: atraumatic, normocephalic Eyes: nl conjunctiva Neck: supple Respiratory: clear to auscultation, normal air movement Cardiovascular: regular rate and rhythm Gastrointestinal: soft, No distended Genitourinary - Male: other (Galvan catheter inplace; bilateral groin lysis catheters in place) Extremities: edema (RLE>LLE) Neurological: nl mental status, nl speech Skin: nl turgor, other (delayed cap refill on R foot; chronic venous stasis changes noted) Results Result Diagram: 08/04/17 1210 08/04/17 1210 Results 24 hrs Laboratory Tests Test 08/03/17 23:55 08/04/17 00:33 08/04/17 00:34 08/04/17 04:40 Blood Gas Specimen Source Blood arterial Arterial Blood Date Drawn 08/04/2017 12:10:03 AM Arterial Blood pH (Temp corrected) 7.461 H Arterial Blood pCO2 (Temp correct) 34.3 L Arterial Blood pO2 (Temp corrected) 74.7 L Arterial Blood HCO3 23.9 Arterial Blood Base Excess 0.4 Arterial Blood Oxygen Saturation 95.0 Harish Test N/A Arterial Blood Gas Puncture Site A-Line Arterial Blood Carboxyhemoglobin 0.1 Arterial Blood Methemoglobin 0.3 Blood Gas A-a O2 Differential 34.0 H Oxyhemoglobin Percent 94.6 Total Hemoglobin 10.5 L Blood Gas Temperature 37.0 Blood Gas Modality ROOM AIR FiO2 21.0 Blood Gas Notified Whom UP Blood Gas Notified Time 08/04/2017 12:29:39 AM Troponin I < 0.012 < 0.012 White Blood Count 16.5 #H 13.5 H Red Blood Count 3.36 L 3.47 L Hemoglobin 9.1 L 9.4 L Hematocrit 28.4 L 29.4 L Mean Corpuscular Volume 84.5 84.7 Mean Corpuscular Hemoglobin 27.1 L 27.1 L Mean Corpuscular Hemoglobin Concent 32.0 32.0 Red Cell Distribution Width 14.8 H 14.9 H Platelet Count 346 337 Mean Platelet Volume 9.1 9.4 Neutrophils % 87.6 H 88.1 H Lymphocytes % 4.0 L 4.6 L Monocytes % 6.0 5.7 Eosinophils % 0.7 0.1 Basophils % 0.2 0.2 Nucleated Red Blood Cells % 0.0 0.0 Neutrophils # 14.4 H 11.9 H Lymphocytes # 0.7 L 0.6 L Monocytes # 1.0 H 0.8 Eosinophils # 0.1 0.0 Basophils # 0.0 0.0 Nucleated Red Blood Cells # 0.0 0.0 Prothrombin Time 16.0 H 15.2 H Prothrombin Time Ratio 1.3 1.2 INR International Normalized Ratio 1.27 1.19 Activated Partial Thromboplast Time 129.0 *H 46.7 H Fibrinogen 594.0 #H 616.0 #H Sodium Level 135 137 Potassium Level 4.5 4.6 Chloride Level 99 99 Carbon Dioxide Level 29 27 Anion Gap 12 16 Blood Urea Nitrogen 14 15 Creatinine 0.73 0.76 Glucose Level 125 119 Lactic Acid Level 1.2 Calcium Level 9.3 8.9 Phosphorus Level 4.2 4.1 Magnesium Level 2.0 2.1 Total Bilirubin 0.7 Direct Bilirubin 0.00 Indirect Bilirubin 0.7 Aspartate Amino Transf (AST/SGOT) 26 Alanine Aminotransferase (ALT/SGPT) 28 Alkaline Phosphatase 208 H Creatinine Kinase MB (Mass) 0.75 Total Protein 7.2 Albumin 3.1 L Thyroid Stimulating Hormone (TSH) 1.240 Test 08/04/17 09:10 08/04/17 10:05 08/04/17 10:06 08/04/17 12:10 Urine Eosinophils % 0.0 Urine Random Creatinine 135.95 Urine Random Sodium 102 H Urine Protein/Creatinine Ratio 0.47 Urine Total Protein 65.0 H Prothrombin Time 15.5 H Prothrombin Time Ratio 1.2 INR International Normalized Ratio 1.22 Activated Partial Thromboplast Time 44.1 H Fibrinogen 533.0 #H Uric Acid 4.5 White Blood Count 13.1 H Red Blood Count 3.51 L Hemoglobin 9.7 L Hematocrit 29.9 L Mean Corpuscular Volume 85.2 Mean Corpuscular Hemoglobin 27.6 L Mean Corpuscular Hemoglobin Concent 32.4 Red Cell Distribution Width 14.8 H Platelet Count 315 Mean Platelet Volume 9.1 Neutrophils % 83.7 H Lymphocytes % 7.5 L Monocytes % 7.2 Eosinophils % 0.2 Basophils % 0.3 Nucleated Red Blood Cells % 0.0 Neutrophils # 11.0 H Lymphocytes # 1.0 Monocytes # 0.9 Eosinophils # 0.0 Basophils # 0.0 Nucleated Red Blood Cells # 0.0 Platelet Func Collagen/Epinephrine 101 Platelet Function Collagen/ADP Sodium Level 138 Potassium Level 4.2 Chloride Level 99 Carbon Dioxide Level 28 Anion Gap 15 Blood Urea Nitrogen 16 Creatinine 0.77 Glucose Level 109 Calcium Level 8.8 Phosphorus Level 4.0 Magnesium Level 2.1 Test 08/04/17 16:01 Prothrombin Time 16.2 H Prothrombin Time Ratio 1.3 INR International Normalized Ratio 1.29 Activated Partial Thromboplast Time 56.8 H Fibrinogen 395.0 # Medications Medications Current Medications Dutasteride (Avodart) 0.5 mg DAILY PO Last administered on 08/04/17 09:45; Admin Dose 0.5 MG; Start 07/22/17 at 09:00 Gabapentin (Neurontin) 300 mg QHS PO Last administered on 08/02/17 20:30; Admin Dose 300 MG; Start 07/22/17 at 21:00 Salmeterol Xinafoate/ Fluticasone (Advair 250/50 Diskus) 1 inh BID INH Last administered on 08/04/17 09:44; Admin Dose 1 INH; Start 07/22/17 at 09:00 Atorvastatin Calcium (Lipitor) 10 mg QAM PO Last administered on 08/04/17 09: 45; Admin Dose 10 MG; Start 07/22/17 at 09:00 Acetaminophen (Tylenol Tab) 650 mg QID PRN PO PAIN LEVEL 1-5; Start 07/21/17 at 23:30 Ondansetron HCl (Zofran Inj) 4 mg Q6H PRN IV NAUSEA AND/OR VOMITING Last administered on 08/04/17 02:15; Admin Dose 4 MG; Start 07/21/17 at 23:30 Acetaminophen/ Hydrocodone Bitart ([place] (5/325)) 1 tab Q4H PRN PO PAIN LEVEL 4 -7 Last administered on 08/03/17 16:41; Admin Dose 1 TAB; Start 07/21/17 at 23:30 Hydromorphone HCl (Dilaudid) 1 mg Q3H PRN IV PAIN Last administered on 12:45; Admin Dose 1 MG; Start 07/23/17 at 22:00 Famotidine (Pepcid) 20 mg BID PO Last administered on 08/03/17 09:37; Admin Dose 20 MG; Start 07/26/17 at 21:00 Metoprolol Tartrate (Lopressor) 12.5 mg BID PO Last administered on 08/04/17 09:45; Admin Dose 12.5 MG; Start 07/27/17 at 21:00 Docusate Sodium (Colace) 100 mg BID PO Last administered on 08/04/17 09:45; Admin Dose 100 MG; Start 07/28/17 at 21:00 Polyethylene Glycol (Miralax) 17 gm PRN PRN PO CONSTIPATION Last administered on 07/31/17 20:26; Admin Dose 17 GM; Start 07/28/17 at 15:00 Senna (Senokot) 1 tab DAILY PRN PO CONSTIPATION Last administered on 20:25; Admin Dose 1 TAB; Start 07/30/17 at 17:00 Mineral Oil (Mineral Oil) 30 ml BID PO Last administered on 08/02/17 20:30; Admin Dose 30 ML; Start 07/30/17 at 21:00 Furosemide (Lasix) 20 mg DAILY IV Last administered on 08/04/17 09:44; Admin Dose 20 MG; Start 08/01/17 at 09:00 Azithromycin (Zithromax) 500 mg DAILY PO Last administered on 08/04/17 10:21 ; Admin Dose 500 MG; Start 08/01/17 at 11:30 Lorazepam (Ativan) 0.5 mg Q6H PRN IV ANXIETY Last administered on 08/04/17 08 :52; Admin Dose 0.5 MG; Start 08/01/17 at 19:00 Apixaban (Eliquis) 5 mg BID PO ; Start 08/03/17 at 21:00; Status Future Hold Fentanyl (Sublimaze) 25 mcg Q1H PRN IV PAIN Last administered on 08/04/17 15: 14; Admin Dose 25 MCG; Start 08/04/17 at 00:00 Metoprolol Tartrate (Lopressor) 5 mg Q4H PRN IV ELEVATED HEART RATE; Start at 04:00 Famotidine 20 mg 20 mg BID IV Last administered on 08/04/17 09:43; Admin Dose 20 MG; Start 08/04/17 at 09:00 Sodium Chloride 1,000 ml @ 100 mls/hr Q10H IV Last administered on 08/04/17 10:41; Admin Dose 100 MLS/HR; Start 08/04/17 at 04:30 Alteplase, Recombinant 10 mg/ Sodium Chloride 100 ml @ 10 mls/hr Q10H IV Last administered on 08/04/17 11:51; Admin Dose 10 MLS/HR; Start 08/04/17 at 11:00 Alteplase, Recombinant 10 mg/ Sodium Chloride 100 ml @ 10 mls/hr Q10H IV Last administered on 08/04/17 11:48; Admin Dose 10 MLS/HR; Start 08/04/17 at 11:00 Heparin Sodium (Porcine) 250 ml @ 10 mls/hr Q24H IV Last administered on 08/04 11:19; Admin Dose 6 MLS/HR; Start 08/04/17 at 11:00 Heparin Sodium (Porcine) (Heparin 68929 Units/250 ml) 250 ml @ 10 mls/hr Q24H IV Last administered on 08/04/17 11:20; Admin Dose 6 MLS/HR; Start 08/04/17 at 11:00 Procedures Procedures US of RLE 08/03/2017: Occlusive deep venous thrombus throughout the right lower extremity. Chest CT 07/31/2017: 1. Emphysema. 2. Mild scarring in the right lung posteriorly. 3. Irregular peripheral mass-like lesion in the right upper lobe laterally measuring 2.5 x 1.1 x 3.5 cm. This may be due to neoplasm. 4. Right paratracheal lymphadenopathy. 5. Right adrenal nodule measuring 1.8 x 1.4 cm. Left adrenal nodule measuring 3.1 x 2.5 cm. This may be malignant. Correlation with MRI should be considered. 6. Otherwise unremarkable study. CXR 07/31/2017: 1. Previous granulomatous disease. 2. Atherosclerosis. 3. Otherwise unremarkable chest x-ray. US BLE 07/22/2017: 1. Complete occlusion of the left greater saphenous vein. There is occlusion of the right greater saphenous vein to the level of the ankle. 2. Bilateral common femoral vein DVT. 3. 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 JEANMARIE MALONEY NP Aug 04, 2017 17:56
[2017-08-04] MEDS: GABAPENTIN 300 MG CAP PO SCH (20:36)
[2017-08-04 22:21] LABS: BASOPHIL # 0.1 10^3/ul (0.0-0.1); BASOPHILS % 0.4 % (0.0-2.0); EOSINOPHILS # 0.1 10^3/ul (0.0-0.5); HEMATOCRIT 29.4 % (42.0-52.0); HEMOGLOBIN 9.4 g/dl (14.0-18.0); LYMPHOCYTES # 1.3 10^3/ul (0.8-2.9); LYMPHOCYTES % 10.3 % (15.0-51.0); MEAN CORPUSCULAR HEMOGLOBIN 27.4 pg (29.0-33.0); MEAN CORPUSCULAR VOLUME 85.7 fl (82.0-101.0); MEAN PLATELET VOLUME 9.4 fl (7.4-10.4); MONOCYTE # 0.9 10^3/ul (0.3-0.9); MONOCYTES % 7.5 % (0.0-11.0); NEUTROPHIL # 9.9 10^3/ul (1.6-7.5); NEUTROPHILS % 79.6 % (39.0-77.0); PLATELET COUNT 329 10^3/UL (140-415); RED BLOOD COUNT 3.43 10^6/ul (4.70-6.10); RED CELL DISTRIBUTION WIDTH 15.1 % (11.5-14.5); WHITE BLOOD COUNT 12.5 10^3/ul (4.8-10.8)
[2017-08-04 22:44] LABS: CALCIUM 8.9 mg/dl (8.4-10.2); CREATININE 0.77 mg/dl (0.61-1.24); MAGNESIUM 2.1 mg/dl (1.7-2.5); PHOSPHORUS 3.5 mg/dl (2.5-4.9); POTASSIUM 4.4 mmol/L (3.5-5.1)
[2017-08-05] VITALS (41 sets, daily range): BP systolic 106–132; BP diastolic 67–87; PULSE 93–116; RESP 14–32
[2017-08-05 00:06] LABS: INR 1.29; PROTIME 16.2 Sec (12.2-14.2); PT RATIO 1.3
[2017-08-05] MEDS: LEVALBUTEROL (NEB) 0.63 MG/3 ML AMP HHN SCH ×3 (02:00→14:00)
[2017-08-05] MEDS: HYDROmorphONE 1 MG/ML SYG IV PRN ×2 (02:54→16:29)
[2017-08-05 05:36] LABS: BASOPHILS % 0.3 % (0.0-2.0); EOSINOPHILS # 0.2 10^3/ul (0.0-0.5); EOSINOPHILS % 1.5 % (0.0-7.0); HEMATOCRIT 27.9 % (42.0-52.0); HEMOGLOBIN 8.8 g/dl (14.0-18.0); LYMPHOCYTES % 9.2 % (15.0-51.0); MEAN CORPUSCULAR HEMOGLOBIN 26.8 pg (29.0-33.0); MEAN CORPUSCULAR HGB CONC 31.5 g/dl (32.0-37.0); MEAN CORPUSCULAR VOLUME 85.1 fl (82.0-101.0); MEAN PLATELET VOLUME 9.5 fl (7.4-10.4); MONOCYTE # 0.9 10^3/ul (0.3-0.9); MONOCYTES % 8.1 % (0.0-11.0); NEUTROPHIL # 8.9 10^3/ul (1.6-7.5); NEUTROPHILS % 79.7 % (39.0-77.0); PLATELET COUNT 311 10^3/UL (140-415); RED BLOOD COUNT 3.28 10^6/ul (4.70-6.10); RED CELL DISTRIBUTION WIDTH 15.4 % (11.5-14.5); WHITE BLOOD COUNT 11.1 10^3/ul (4.8-10.8)
[2017-08-05 05:53] LABS: INR 1.37; PROTIME 16.9 Sec (12.2-14.2); PT RATIO 1.3
[2017-08-05 05:54] LABS: PARTIAL THROMBOPLASTIN TIME 68.7 Sec (25.0-35.0)
[2017-08-05] MEDS: FENTAnyl 50 MCG/ML VIAL IV PRN ×7 (06:02→22:58)
[2017-08-05] MEDS: NS IV SCH ×8 (06:11→20:04)
[2017-08-05] MEDS: ALTEPLASE IV SCH ×8 (06:11→20:04)
[2017-08-05 06:24] LABS: CALCIUM 8.6 mg/dl (8.4-10.2); CREATININE 0.7 mg/dl (0.61-1.24); MAGNESIUM 2.1 mg/dl (1.7-2.5); PHOSPHORUS 3.4 mg/dl (2.5-4.9)
--- NOTE | 2017-08-05 08:08 | PN ---
Date/Time of Note Date/Time of Note DATE: 08/05/17 TIME: 08:04 Assessment/Plan Lines/Catheters IV Catheter Type (from Nrs): Venous sheath Galvan in Place (from Nrs): Yes Assessment/Plan Chief Complaint/Hosp Course -Bilateral lower extremity atherosclerosis with disabling claudication and right popliteal artery aneurysm: It seems the patient may have findings of atheroemboli related to his popliteal artery aneurysm. -S/P Right fem-pop Stent grafting and Aortoiliac angiogram 07/23/2017 -Bilateral lower extremity acute venous thrombosis involving CFV, iliac veins and IVC: It seems the patient may have failed with Coumadin therapy as he had previous acute onsets of venous thrombosis with therapeutic INR's. Given the new findings of his CT scan of the lung, concern of cancer given his smoking history is there especially being hypercoagulable and failed Coumadin therapy 07/23/2017: -S/P Bilateral lower extremity venogram -S/P Bilateral CI, EI, CF veins and caval mechanical thrombectomy -S/P Thrombolysis Catheters 07/24/2017: -S/P Bilateral lysis check 07/25/2017 -S/P Bilateral Lysis check 08/03/2017 - Patient had delayed transition of anticoagulation IV -> PO -S/P RLE angiogram, mechanical thrombectomy and thrombolysis -S/P RLE venogram, lysis catheter placement 08/04/2017 -S/P Lysis check -Will perform lysis check on the patient later today -Appreciate hematology Evaluation -Recommend for a lung biopsy given the CT chest findings to rule out any underlying tumors (possible cause of worsened hypercoagulable state) when patient is more stable -Continue neurovascular checks Q1 -Strict flat bedrest for now -Check BMP, fibrinogen, CBC and coags Q6 for now -Continue TPA infusion bilateral catheters 1.0mg per hour -Continue Heparin infusion bilateral sheaths 500Units/hr (total 1000units/hr or adjust as needed to be therapeutic ptt 60-100) -Optimize vascular status (BP meds, diet, nutrition, exercise, sugar control, antiplatelets). -Discussed findings, plan and management with the patient and he understands. -Discussed limb salvage and realistic outcomes of our current findings and the possibility of limb loss with the patient. Patient fully understands the current findings of his hypercoagulable state and possibility of limb loss. Further, spoken with his family and the patient regarding serial interventions that may be needed and increased risks of intracranial hemorrhage, , stroke , RI, infection, thrombosis, device malfunction. We have discussed the plans with our multidisciplinary team and will continue our management per their recommendations -Thank you for allowing us to partake in the care of your patient. Please call with any questions. Problems: Subjective 24 Hr Interval Summary improved RLE discomfort, decreased coughing, +flatus Exam/Review of Systems Vital Signs Vitals Vital Signs Date Time Temp Pulse Resp B/P Pulse Ox O2 Delivery O2 Flow Rate FiO2 08/05/17 06:30 101 18 106/74 95 Room Air 08/05/17 04:00 98.9 08/05/17 02:18 21 Intake and Output 08/04/17 08/04/17 08/05/17 15:00 23:00 07:00 Intake Total 1003 ml 1043 ml 938 ml Output Total 865 ml 435 ml 200 ml Balance 138 ml 608 ml 738 ml Exam Free Text/Dictation GENERAL: Alert and oriented x3, PULMONARY: Coarse breath sounds bilaterally CARDIOVASCULAR: S1, S2 present ABDOMEN: Soft, nontender, nondistended. Bowel sounds positive. EXTREMITIES: -Right lower extremity palpable femoral pulse, Dopplerable pedal (DP) pulse. Motor and sensory improved (patient has proprioception, sensation of the forefoot, able to move toes and ankle, calf soft), Capillary refill 3, edema 2-3 + -Left lower extremity, palpable femoral pulse, palpable pedal pulse. Motor and sensory intact. Capillary refill 3, edema 2+ -Bilateral groin soft with catheters intact Results Result Diagram: 08/05/17 0458 08/05/17 0500 MATT MCCULLOUGH MD Aug 05, 2017 08:08
--- NOTE | 2017-08-05 08:26 | RADRPT ---
PROCEDURE: XR Chest. CLINICAL INDICATION: Congestion TECHNIQUE: Single AP portable chest. COMPARISON: 07/31/2017 Chest x-ray FINDINGS: Narrowing of the mediastinum compatible with hyperinflation and COPD. Mildly coarse interstitial [place] compatible with chronic interstitial fibrotic change. Atherosclerotic calcification of the ao rta. The lungs are clear without pleural effusion or focal consolidation. No pneumothorax. The osse ous structures and soft tissues are unremarkable. IMPRESSION: 1. No evidence for active cardiopulmonary disease. 2. COPD. RPTAT:AAJJ Jan Saha Physician Date Time Electronically viewed and signed by Physician Miguel on 08/05/2017 08:26 [place]/
[2017-08-05] MEDS: SALMETEROL/FLUTICASONE 250/50 INHA INH SCH ×2 (08:56→20:31)
[2017-08-05] MEDS: DUTASTERIDE 0.5 MG CAP PO SCH (08:57)
[2017-08-05] MEDS: FUROSEMIDE 20 MG INJ IV SCH (08:57)
[2017-08-05] MEDS: METOPROLOL 25 MG TAB PO SCH ×2 (08:57→20:32)
[2017-08-05] MEDS: DOCUSATE SODIUM 100 MG CAP PO SCH ×2 (08:57→20:31)
[2017-08-05] MEDS: FAMOTIDINE 20 MG INJ IV SCH ×2 (08:57→20:34)
[2017-08-05] MEDS: ATORVASTATIN 10 MG TAB PO SCH (08:57)
[2017-08-05] MEDS: MINERAL OIL 30ML CUP PO SCH ×2 (08:57→20:31)
[2017-08-05] MEDS: AZITHROMYCIN 250 MG TAB PO SCH (08:58)
[2017-08-05] MEDS: SOD CHLORIDE 0.9% 1,000 ML IV SCH ×2 (10:04→22:04)
--- NOTE | 2017-08-05 11:24 | CONS ---
Date/Time of Note Date/Time of Note DATE: 08/05/17 TIME: 11:21 Assessment/Plan Assessment/Plan Additional Assessment/Plan Assessment recommendations; 1. 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 2. Prior history of DVT. 3. Underlying COPD. 4. Calcified right upper lobe nodule. However there is a peripheral infiltrate which likely is acute pneumonia. Patient on Zithromax. 5. Underlying malignancy is unlikely as the patient has a significantly remote history of recurrent DVTs and if the DVTs were associated with any occult malignancy at that time the patient certainly would have had extensive malignant tumor burden now. Continue current treatment. When the patient is stable from a vascular perspective he can be worked up on an outpatient basis for the right upper lobe lesions. Consultation Date/Type/Reason Admit Date/Time Jul 21, 2017 at 23:03 Initial Consult Date 08/04/17 Type of Consultation: Pulmonary/critical care Referring Provider: SEBAS LALA MD 24 HR Interval Summary Free Text/Dictation Patient's condition is stable. Denies any shortness of breath, right lower extremity pain has resolved. General exam; elderly male, awake and alert. Currently in no distress. Exam/Review of Systems Vital Signs Vitals Vital Signs Date Time Temp Pulse Resp B/P Pulse Ox O2 Delivery O2 Flow Rate FiO2 08/05/17 09:32 94 20 98 21 08/05/17 06:30 106/74 Room Air 08/05/17 04:00 98.9 Intake and Output 08/04/17 08/04/17 08/05/17 15:00 23:00 07:00 Intake Total 1003 ml 1043 ml 938 ml Output Total 865 ml 435 ml 200 ml Balance 138 ml 608 ml 738 ml Exam HEENT exam; supple neck, no JVD. No lymphadenopathy. Midline trachea. No thyromegaly. Pharynx is clear. Patient is edentulous. Chest exam; diminished but clear breath sounds. S1-S2 audible, no murmurs. Regular rhythm. Abdomen exam; soft, nondistended. Nontender. No organomegaly. Bowel sounds audible. Extremity exam; no peripheral edema. Dorsalis pedis pulses palpable on the left foot. It is audible by Doppler on right foot. No clubbing. 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 Results Result Diagram: 08/05/17 0458 08/05/17 0500 Results 24 hrs Laboratory Tests Test 08/04/17 12:10 08/04/17 16:01 08/04/17 21:30 08/04/17 21:50 White Blood Count 13.1 H 12.5 H Red Blood Count 3.51 L 3.43 L Hemoglobin 9.7 L 9.4 L Hematocrit 29.9 L 29.4 L Mean Corpuscular Volume 85.2 85.7 Mean Corpuscular Hemoglobin 27.6 L 27.4 L Mean Corpuscular Hemoglobin Concent 32.4 32.0 Red Cell Distribution Width 14.8 H 15.1 H Platelet Count 315 329 Mean Platelet Volume 9.1 9.4 Neutrophils % 83.7 H 79.6 H Lymphocytes % 7.5 L 10.3 L Monocytes % 7.2 7.5 Eosinophils % 0.2 1.0 Basophils % 0.3 0.4 Nucleated Red Blood Cells % 0.0 0.0 Neutrophils # 11.0 H 9.9 H Lymphocytes # 1.0 1.3 Monocytes # 0.9 0.9 Eosinophils # 0.0 0.1 Basophils # 0.0 0.1 Nucleated Red Blood Cells # 0.0 0.0 Platelet Func Collagen/Epinephrine 101 Platelet Function Collagen/ADP Sodium Level 138 139 Potassium Level 4.2 4.4 Chloride Level 99 100 Carbon Dioxide Level 28 28 Anion Gap 15 15 Blood Urea Nitrogen 16 17 Creatinine 0.77 0.77 Glucose Level 109 101 Calcium Level 8.8 8.9 Phosphorus Level 4.0 3.5 Magnesium Level 2.1 2.1 Prothrombin Time 16.2 H Prothrombin Time Ratio 1.3 INR International Normalized Ratio 1.29 Activated Partial Thromboplast Time 56.8 H Fibrinogen 395.0 # Test 08/04/17 21:51 08/04/17 21:55 08/05/17 04:58 08/05/17 05:00 Activated Partial Thromboplast Time 60.2 H 68.7 H Prothrombin Time 16.2 H 16.9 H Prothrombin Time Ratio 1.3 1.3 INR International Normalized Ratio 1.29 1.37 Fibrinogen 322.0 # 326.0 White Blood Count 11.1 H Red Blood Count 3.28 L Hemoglobin 8.8 L Hematocrit 27.9 L Mean Corpuscular Volume 85.1 Mean Corpuscular Hemoglobin 26.8 L Mean Corpuscular Hemoglobin Concent 31.5 L Red Cell Distribution Width 15.4 H Platelet Count 311 Mean Platelet Volume 9.5 Neutrophils % 79.7 H Lymphocytes % 9.2 L Monocytes % 8.1 Eosinophils % 1.5 Basophils % 0.3 Nucleated Red Blood Cells % 0.0 Neutrophils # 8.9 H Lymphocytes # 1.0 Monocytes # 0.9 Eosinophils # 0.2 Basophils # 0.0 Nucleated Red Blood Cells # 0.0 Sodium Level 139 Potassium Level 4.0 Chloride Level 102 Carbon Dioxide Level 28 Anion Gap 13 Blood Urea Nitrogen 17 Creatinine 0.70 Glucose Level 104 Calcium Level 8.6 Phosphorus Level 3.4 Magnesium Level 2.1 Medications Medications Current Medications Dutasteride (Avodart) 0.5 mg DAILY PO Last administered on 08/05/17 08:57; Admin Dose 0.5 MG; Start 07/22/17 at 09:00 Gabapentin (Neurontin) 300 mg QHS PO Last administered on 08/02/17 20:30; Admin Dose 300 MG; Start 07/22/17 at 21:00 Salmeterol Xinafoate/ Fluticasone (Advair 250/50 Diskus) 1 inh BID INH Last administered on 08/05/17 08:56; Admin Dose 1 INH; Start 07/22/17 at 09:00 Atorvastatin Calcium (Lipitor) 10 mg QAM PO Last administered on 08/05/17 08: 57; Admin Dose 10 MG; Start 07/22/17 at 09:00 Acetaminophen (Tylenol Tab) 650 mg QID PRN PO PAIN LEVEL 1-5; Start 07/21/17 at 23:30 Ondansetron HCl (Zofran Inj) 4 mg Q6H PRN IV NAUSEA AND/OR VOMITING Last administered on 08/04/17 02:15; Admin Dose 4 MG; Start 07/21/17 at 23:30 Acetaminophen/ Hydrocodone Bitart ([place] (5/325)) 1 tab Q4H PRN PO PAIN LEVEL 4 -7 Last administered on 08/03/17 16:41; Admin Dose 1 TAB; Start 07/21/17 at 23:30 Hydromorphone HCl (Dilaudid) 1 mg Q3H PRN IV PAIN Last administered on 02:54; Admin Dose 1 MG; Start 07/23/17 at 22:00 Famotidine (Pepcid) 20 mg BID PO Last administered on 08/03/17 09:37; Admin Dose 20 MG; Start 07/26/17 at 21:00; Status Future Hold Metoprolol Tartrate (Lopressor) 12.5 mg BID PO Last administered on 08/05/17 08:57; Admin Dose 12.5 MG; Start 07/27/17 at 21:00 Docusate Sodium (Colace) 100 mg BID PO Last administered on 08/05/17 08:57; Admin Dose 100 MG; Start 07/28/17 at 21:00 Polyethylene Glycol (Miralax) 17 gm PRN PRN PO CONSTIPATION Last administered on 07/31/17 20:26; Admin Dose 17 GM; Start 07/28/17 at 15:00 Senna (Senokot) 1 tab DAILY PRN PO CONSTIPATION Last administered on 20:25; Admin Dose 1 TAB; Start 07/30/17 at 17:00 Mineral Oil (Mineral Oil) 30 ml BID PO Last administered on 08/05/17 08:57; Admin Dose 30 ML; Start 07/30/17 at 21:00 Furosemide (Lasix) 20 mg DAILY IV Last administered on 08/05/17 08:57; Admin Dose 20 MG; Start 08/01/17 at 09:00 Azithromycin (Zithromax) 500 mg DAILY PO Last administered on 08/05/17 08:58 ; Admin Dose 500 MG; Start 08/01/17 at 11:30; Stop 08/06/17 at 11:29 Lorazepam (Ativan) 0.5 mg Q6H PRN IV ANXIETY Last administered on 08/04/17 08 :52; Admin Dose 0.5 MG; Start 08/01/17 at 19:00 Apixaban (Eliquis) 5 mg BID PO ; Start 08/03/17 at 21:00; Status Future Hold Fentanyl (Sublimaze) 25 mcg Q1H PRN IV PAIN Last administered on 08/05/17 08: 58; Admin Dose 25 MCG; Start 08/04/17 at 00:00 Metoprolol Tartrate (Lopressor) 5 mg Q4H PRN IV ELEVATED HEART RATE; Start at 04:00 Famotidine 20 mg 20 mg BID IV Last administered on 08/05/17 08:57; Admin Dose 20 MG; Start 08/04/17 at 09:00 Sodium Chloride 1,000 ml @ 100 mls/hr Q10H IV Last administered on 08/05/17 10:04; Admin Dose 100 MLS/HR; Start 08/04/17 at 04:30 Alteplase, Recombinant 10 mg/ Sodium Chloride 100 ml @ 10 mls/hr Q10H IV Last administered on 08/05/17 06:11; Admin Dose 10 MLS/HR; Start 08/04/17 at 11:00 Alteplase, Recombinant 10 mg/ Sodium Chloride 100 ml @ 10 mls/hr Q10H IV Last administered on 08/05/17 10:03; Admin Dose 10 MLS/HR; Start 08/04/17 at 11:00 Heparin Sodium (Porcine) 250 ml @ 10 mls/hr Q24H IV Last administered on 08/04 18:16; Admin Dose 7 MLS/HR; Start 08/04/17 at 11:00 Heparin Sodium (Porcine) (Heparin 54420 Units/250 ml) 250 ml @ 10 mls/hr Q24H IV Last administered on 08/04/17 18:18; Admin Dose 7 MLS/HR; Start 08/04/17 at 11:00 RICH RUVALCABA Aug 05, 2017 11:24
[2017-08-05] MEDS: HEPARIN 25000 UNITS/D5W 250 ML (VPH) IV SCH ×2 (12:05)
[2017-08-05 12:53] LABS: BASOPHILS % 0.3 % (0.0-2.0); EOSINOPHILS # 0.1 10^3/ul (0.0-0.5); EOSINOPHILS % 0.9 % (0.0-7.0); HEMATOCRIT 28.4 % (42.0-52.0); HEMOGLOBIN 9.1 g/dl (14.0-18.0); LYMPHOCYTES # 0.9 10^3/ul (0.8-2.9); MEAN CORPUSCULAR HEMOGLOBIN 27.6 pg (29.0-33.0); MEAN CORPUSCULAR VOLUME 86.1 fl (82.0-101.0); MEAN PLATELET VOLUME 9.8 fl (7.4-10.4); MONOCYTE # 0.8 10^3/ul (0.3-0.9); MONOCYTES % 6.6 % (0.0-11.0); NEUTROPHIL # 10.4 10^3/ul (1.6-7.5); NEUTROPHILS % 83.8 % (39.0-77.0); PLATELET COUNT 324 10^3/UL (140-415); RED CELL DISTRIBUTION WIDTH 15.1 % (11.5-14.5); WHITE BLOOD COUNT 12.4 10^3/ul (4.8-10.8)
[2017-08-05 13:12] LABS: INR 1.32; PROTIME 16.5 Sec (12.2-14.2); PT RATIO 1.3
[2017-08-05 13:13] LABS: PARTIAL THROMBOPLASTIN TIME 51.4 Sec (25.0-35.0)
[2017-08-05 13:28] LABS: CALCIUM 8.5 mg/dl (8.4-10.2); CREATININE 0.67 mg/dl (0.61-1.24); PHOSPHORUS 3.7 mg/dl (2.5-4.9); POTASSIUM 4.1 mmol/L (3.5-5.1)
--- NOTE | 2017-08-05 14:33 | PN ---
Date/Time of Note Date/Time of Note DATE: 08/05/17 TIME: 14:29 Assessment/Plan VTE Prophylaxis VTE Prophylaxis Intervention: SCD's Lines/Catheters IV Catheter Type (from Nrs): Venous Sheath Urinary Cath still in place: Yes Reason Cath still needed: urinary retention Assessment/Plan Chief Complaint/Hosp Course No acute events overnight, patient is awake alert stated that his pain is well controlled, on heparin and ATP. 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 Patient is currently on heparin and ATP. Continue ICU care per vascular surgery recommendations. -Right upper lobe lung mass. Patient refused lung biopsy at this time. Dr Garay is following in pulmonology consultation. Continue Zithromax with this recommendation for follow-up CT in 3 weeks. -Right lower extremity pain, continue Fitzgerald and morphine as needed for pain. 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 Mendiola is following in vascular surgery consultation. S/p multiple vascular interventions. -Hypercoagulation work up is neg, Dr Amaya is following in hematology consultation. -Left leg DVT -COPD -Dyslipidemia Further recommendations based on clinical course. Plan of care discussed with Dr. Drake Problems: Exam/Review of Systems Vital Signs Vitals Vital Signs Date Time Temp Pulse Resp B/P Pulse Ox O2 Delivery O2 Flow Rate FiO2 08/05/17 12:00 100 08/05/17 11:00 28 99 Room Air 08/05/17 09:32 21 08/05/17 04:00 98.9 Intake and Output 08/04/17 08/04/17 08/05/17 15:00 23:00 07:00 Intake Total 1003 ml 1043 ml 938 ml Output Total 865 ml 435 ml 200 ml Balance 138 ml 608 ml 738 ml Exam Constitutional: alert, oriented Respiratory: normal air movement Cardiovascular: nl pulses Gastrointestinal: non-tender, soft Musculoskeletal: nl extremities to inspection Extremities: edema Neurological: nl mental status Results Result Diagram: 08/05/17 1139 08/05/17 1139 Results 24 hrs Laboratory Tests Test 08/04/17 16:01 08/04/17 21:30 08/04/17 21:50 08/04/17 21:51 Prothrombin Time 16.2 H Prothrombin Time Ratio 1.3 INR International Normalized Ratio 1.29 Activated Partial Thromboplast Time 56.8 H 60.2 H Fibrinogen 395.0 # Sodium Level 139 Potassium Level 4.4 Chloride Level 100 Carbon Dioxide Level 28 Anion Gap 15 Blood Urea Nitrogen 17 Creatinine 0.77 Glucose Level 101 Calcium Level 8.9 Phosphorus Level 3.5 Magnesium Level 2.1 White Blood Count 12.5 H Red Blood Count 3.43 L Hemoglobin 9.4 L Hematocrit 29.4 L Mean Corpuscular Volume 85.7 Mean Corpuscular Hemoglobin 27.4 L Mean Corpuscular Hemoglobin Concent 32.0 Red Cell Distribution Width 15.1 H Platelet Count 329 Mean Platelet Volume 9.4 Neutrophils % 79.6 H Lymphocytes % 10.3 L Monocytes % 7.5 Eosinophils % 1.0 Basophils % 0.4 Nucleated Red Blood Cells % 0.0 Neutrophils # 9.9 H Lymphocytes # 1.3 Monocytes # 0.9 Eosinophils # 0.1 Basophils # 0.1 Nucleated Red Blood Cells # 0.0 Test 08/04/17 21:55 08/05/17 04:58 08/05/17 05:00 08/05/17 11:39 Prothrombin Time 16.2 H 16.9 H 16.5 H Prothrombin Time Ratio 1.3 1.3 1.3 INR International Normalized Ratio 1.29 1.37 1.32 Fibrinogen 322.0 # 326.0 326.0 White Blood Count 11.1 H 12.4 H Red Blood Count 3.28 L 3.30 L Hemoglobin 8.8 L 9.1 L Hematocrit 27.9 L 28.4 L Mean Corpuscular Volume 85.1 86.1 Mean Corpuscular Hemoglobin 26.8 L 27.6 L Mean Corpuscular Hemoglobin Concent 31.5 L 32.0 Red Cell Distribution Width 15.4 H 15.1 H Platelet Count 311 324 Mean Platelet Volume 9.5 9.8 Neutrophils % 79.7 H 83.8 H Lymphocytes % 9.2 L 7.0 L Monocytes % 8.1 6.6 Eosinophils % 1.5 0.9 Basophils % 0.3 0.3 Nucleated Red Blood Cells % 0.0 0.0 Neutrophils # 8.9 H 10.4 H Lymphocytes # 1.0 0.9 Monocytes # 0.9 0.8 Eosinophils # 0.2 0.1 Basophils # 0.0 0.0 Nucleated Red Blood Cells # 0.0 0.0 Activated Partial Thromboplast Time 68.7 H 51.4 H Sodium Level 139 138 Potassium Level 4.0 4.1 Chloride Level 102 101 Carbon Dioxide Level 28 26 Anion Gap 13 15 Blood Urea Nitrogen 17 16 Creatinine 0.70 0.67 Glucose Level 104 99 Calcium Level 8.6 8.5 Phosphorus Level 3.4 3.7 Magnesium Level 2.1 2.0 Medications Medications Current Medications Dutasteride (Avodart) 0.5 mg DAILY PO Last administered on 08/05/17 08:57; Admin Dose 0.5 MG; Start 07/22/17 at 09:00 Gabapentin (Neurontin) 300 mg QHS PO Last administered on 08/02/17 20:30; Admin Dose 300 MG; Start 07/22/17 at 21:00 Salmeterol Xinafoate/ Fluticasone (Advair 250/50 Diskus) 1 inh BID INH Last administered on 08/05/17 08:56; Admin Dose 1 INH; Start 07/22/17 at 09:00 Atorvastatin Calcium (Lipitor) 10 mg QAM PO Last administered on 08/05/17 08: 57; Admin Dose 10 MG; Start 07/22/17 at 09:00 Acetaminophen (Tylenol Tab) 650 mg QID PRN PO PAIN LEVEL 1-5; Start 07/21/17 at 23:30 Ondansetron HCl (Zofran Inj) 4 mg Q6H PRN IV NAUSEA AND/OR VOMITING Last administered on 08/04/17 02:15; Admin Dose 4 MG; Start 07/21/17 at 23:30 Acetaminophen/ Hydrocodone Bitart ([place] (5/325)) 1 tab Q4H PRN PO PAIN LEVEL 4 -7 Last administered on 08/03/17 16:41; Admin Dose 1 TAB; Start 07/21/17 at 23:30 Hydromorphone HCl (Dilaudid) 1 mg Q3H PRN IV PAIN Last administered on 02:54; Admin Dose 1 MG; Start 07/23/17 at 22:00 Famotidine (Pepcid) 20 mg BID PO Last administered on 08/03/17 09:37; Admin Dose 20 MG; Start 07/26/17 at 21:00; Status Future Hold Metoprolol Tartrate (Lopressor) 12.5 mg BID PO Last administered on 08/05/17 08:57; Admin Dose 12.5 MG; Start 07/27/17 at 21:00 Docusate Sodium (Colace) 100 mg BID PO Last administered on 08/05/17 08:57; Admin Dose 100 MG; Start 07/28/17 at 21:00 Polyethylene Glycol (Miralax) 17 gm PRN PRN PO CONSTIPATION Last administered on 07/31/17 20:26; Admin Dose 17 GM; Start 07/28/17 at 15:00 Senna (Senokot) 1 tab DAILY PRN PO CONSTIPATION Last administered on 20:25; Admin Dose 1 TAB; Start 07/30/17 at 17:00 Mineral Oil (Mineral Oil) 30 ml BID PO Last administered on 08/05/17 08:57; Admin Dose 30 ML; Start 07/30/17 at 21:00 Furosemide (Lasix) 20 mg DAILY IV Last administered on 08/05/17 08:57; Admin Dose 20 MG; Start 08/01/17 at 09:00 Azithromycin (Zithromax) 500 mg DAILY PO Last administered on 08/05/17 08:58 ; Admin Dose 500 MG; Start 08/01/17 at 11:30; Stop 08/06/17 at 11:29 Lorazepam (Ativan) 0.5 mg Q6H PRN IV ANXIETY Last administered on 08/04/17 08 :52; Admin Dose 0.5 MG; Start 08/01/17 at 19:00 Apixaban (Eliquis) 5 mg BID PO ; Start 08/03/17 at 21:00; Status Future Hold Fentanyl (Sublimaze) 25 mcg Q1H PRN IV PAIN Last administered on 08/05/17 12: 04; Admin Dose 25 MCG; Start 08/04/17 at 00:00 Metoprolol Tartrate (Lopressor) 5 mg Q4H PRN IV ELEVATED HEART RATE; Start at 04:00 Famotidine 20 mg 20 mg BID IV Last administered on 08/05/17 08:57; Admin Dose 20 MG; Start 08/04/17 at 09:00 Sodium Chloride 1,000 ml @ 100 mls/hr Q10H IV Last administered on 08/05/17 10:04; Admin Dose 100 MLS/HR; Start 08/04/17 at 04:30 Alteplase, Recombinant 10 mg/ Sodium Chloride 100 ml @ 10 mls/hr Q10H IV Last administered on 08/05/17 06:11; Admin Dose 10 MLS/HR; Start 08/04/17 at 11:00 Alteplase, Recombinant 10 mg/ Sodium Chloride 100 ml @ 10 mls/hr Q10H IV Last administered on 08/05/17 10:03; Admin Dose 10 MLS/HR; Start 08/04/17 at 11:00 Heparin Sodium (Porcine) 250 ml @ 10 mls/hr Q24H IV Last administered on 08/05 12:05; Admin Dose 7 MLS/HR; Start 08/04/17 at 11:00 Heparin Sodium (Porcine) (Heparin [id number] Units/250 ml) 250 ml @ 10 mls/hr Q24H IV Last administered on 08/05/17 12:05; Admin Dose 7 MLS/HR; Start 08/04/17 at 11:00 LISETTE MEDINA Aug 05, 2017 14:33
--- NOTE | 2017-08-05 14:56 | RADRPT ---
Vent Rate: 100 bpm RR Interval: 0 msec [place] Interval: 146 msec QRS Duration: 84 msec QT Interval: 352 msec QTC Interval: 454 msec P-R-T [place]: 84 - 75 - 79 degrees Normal sinus rhythm Normal ECG Electronically Signed By: Omid Javed [id number]
--- NOTE | 2017-08-05 15:25 | CONS ---
Date/Time of Note Date/Time of Note DATE: 08/05/17 TIME: 15:23 Assessment/Plan Assessment/Plan Additional Assessment/Plan 1. Preoperative evaluation prior to possible surgical vascular intervention.- negative trop x3 - tolerated intervention well. 2. Hypertension - well Rx, con't Med Rx. 3. Dyslipidemia. 4. Abnormal electrocardiogram with nonspecific ST and T-wave abnormalities. NO CP now. 5. Left lower extremity deep venous thrombosis status post inferior vena cava filter. Now with recurrent LE thrombosis requiring rep-eat lysis/thrombectomy and placement of perfusion catheter - on heparin gtt now. 6. Chronic obstructive pulmonary disease. 7. 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 Tachycardia-? S Tach recurrent after recurrent thrombosis requiring repeat thromobolysis/thrombectomy 9. Lung mass on CT Consultation Date/Type/Reason Admit Date/Time Jul 21, 2017 at 23:03 Initial Consult Date 07/23/17 Type of Consultation: Pulmonary/critical care Referring Provider: SEBAS LALA MD 24 HR Interval Summary Free Text/Dictation NO acute events - pt doing well overall. No CP now - will monitor clinically. ROS: No fever, no chills, no nausea, no vomiting, no diarrhea/constipation No recent weight changes No chest pain, no PND, no orthopnea No dizziness, blurred vision No thirst, no heat or cold intolerance Exam/Review of Systems Vital Signs Vitals Vital Signs Date Time Temp Pulse Resp B/P Pulse Ox O2 Delivery O2 Flow Rate FiO2 08/05/17 14:00 97 29 122/77 97 Room Air 08/05/17 12:00 98.2 08/05/17 09:32 21 Intake and Output 08/04/17 08/04/17 08/05/17 15:00 23:00 07:00 Intake Total 1003 ml 1043 ml 1072 ml Output Total 865 ml 435 ml 200 ml Balance 138 ml 608 ml 872 ml Exam Geneal: WN/WD/NAD, AOx 3 HEENT: Unicetric/atraumatic/EOMI (follows commands) NECK: JVD elevated, no thyromegaly Lymph: no lymphadenopathy HEART: regular with no S3, II/ systolic murmur at apex LUNGS: Coarse sounds ABD: soft, NT, ND, +BS : Intact Neuro: non focal SKIN: chronic changes EXT: trace edema, PAD Results Result Diagram: 08/05/17 1139 08/05/17 1139 Results 24 hrs Laboratory Tests Test 08/04/17 16:01 08/04/17 21:30 08/04/17 21:50 08/04/17 21:51 Prothrombin Time 16.2 H Prothrombin Time Ratio 1.3 INR International Normalized Ratio 1.29 Activated Partial Thromboplast Time 56.8 H 60.2 H Fibrinogen 395.0 # Sodium Level 139 Potassium Level 4.4 Chloride Level 100 Carbon Dioxide Level 28 Anion Gap 15 Blood Urea Nitrogen 17 Creatinine 0.77 Glucose Level 101 Calcium Level 8.9 Phosphorus Level 3.5 Magnesium Level 2.1 White Blood Count 12.5 H Red Blood Count 3.43 L Hemoglobin 9.4 L Hematocrit 29.4 L Mean Corpuscular Volume 85.7 Mean Corpuscular Hemoglobin 27.4 L Mean Corpuscular Hemoglobin Concent 32.0 Red Cell Distribution Width 15.1 H Platelet Count 329 Mean Platelet Volume 9.4 Neutrophils % 79.6 H Lymphocytes % 10.3 L Monocytes % 7.5 Eosinophils % 1.0 Basophils % 0.4 Nucleated Red Blood Cells % 0.0 Neutrophils # 9.9 H Lymphocytes # 1.3 Monocytes # 0.9 Eosinophils # 0.1 Basophils # 0.1 Nucleated Red Blood Cells # 0.0 Test 08/04/17 21:55 08/05/17 04:58 08/05/17 05:00 08/05/17 11:39 Prothrombin Time 16.2 H 16.9 H 16.5 H Prothrombin Time Ratio 1.3 1.3 1.3 INR International Normalized Ratio 1.29 1.37 1.32 Fibrinogen 322.0 # 326.0 326.0 White Blood Count 11.1 H 12.4 H Red Blood Count 3.28 L 3.30 L Hemoglobin 8.8 L 9.1 L Hematocrit 27.9 L 28.4 L Mean Corpuscular Volume 85.1 86.1 Mean Corpuscular Hemoglobin 26.8 L 27.6 L Mean Corpuscular Hemoglobin Concent 31.5 L 32.0 Red Cell Distribution Width 15.4 H 15.1 H Platelet Count 311 324 Mean Platelet Volume 9.5 9.8 Neutrophils % 79.7 H 83.8 H Lymphocytes % 9.2 L 7.0 L Monocytes % 8.1 6.6 Eosinophils % 1.5 0.9 Basophils % 0.3 0.3 Nucleated Red Blood Cells % 0.0 0.0 Neutrophils # 8.9 H 10.4 H Lymphocytes # 1.0 0.9 Monocytes # 0.9 0.8 Eosinophils # 0.2 0.1 Basophils # 0.0 0.0 Nucleated Red Blood Cells # 0.0 0.0 Activated Partial Thromboplast Time 68.7 H 51.4 H Sodium Level 139 138 Potassium Level 4.0 4.1 Chloride Level 102 101 Carbon Dioxide Level 28 26 Anion Gap 13 15 Blood Urea Nitrogen 17 16 Creatinine 0.70 0.67 Glucose Level 104 99 Calcium Level 8.6 8.5 Phosphorus Level 3.4 3.7 Magnesium Level 2.1 2.0 Medications Medications Current Medications Dutasteride (Avodart) 0.5 mg DAILY PO Last administered on 08/05/17 08:57; Admin Dose 0.5 MG; Start 07/22/17 at 09:00 Gabapentin (Neurontin) 300 mg QHS PO Last administered on 08/02/17 20:30; Admin Dose 300 MG; Start 07/22/17 at 21:00 Salmeterol Xinafoate/ Fluticasone (Advair 250/50 Diskus) 1 inh BID INH Last administered on 08/05/17 08:56; Admin Dose 1 INH; Start 07/22/17 at 09:00 Atorvastatin Calcium (Lipitor) 10 mg QAM PO Last administered on 08/05/17 08: 57; Admin Dose 10 MG; Start 07/22/17 at 09:00 Acetaminophen (Tylenol Tab) 650 mg QID PRN PO PAIN LEVEL 1-5; Start 07/21/17 at 23:30 Ondansetron HCl (Zofran Inj) 4 mg Q6H PRN IV NAUSEA AND/OR VOMITING Last administered on 08/04/17 02:15; Admin Dose 4 MG; Start 07/21/17 at 23:30 Acetaminophen/ Hydrocodone Bitart ([place] (5/325)) 1 tab Q4H PRN PO PAIN LEVEL 4 -7 Last administered on 08/03/17 16:41; Admin Dose 1 TAB; Start 07/21/17 at 23:30 Hydromorphone HCl (Dilaudid) 1 mg Q3H PRN IV PAIN Last administered on 02:54; Admin Dose 1 MG; Start 07/23/17 at 22:00 Famotidine (Pepcid) 20 mg BID PO Last administered on 08/03/17 09:37; Admin Dose 20 MG; Start 07/26/17 at 21:00; Status Future Hold Metoprolol Tartrate (Lopressor) 12.5 mg BID PO Last administered on 08/05/17 08:57; Admin Dose 12.5 MG; Start 07/27/17 at 21:00 Docusate Sodium (Colace) 100 mg BID PO Last administered on 08/05/17 08:57; Admin Dose 100 MG; Start 07/28/17 at 21:00 Polyethylene Glycol (Miralax) 17 gm PRN PRN PO CONSTIPATION Last administered on 07/31/17 20:26; Admin Dose 17 GM; Start 07/28/17 at 15:00 Senna (Senokot) 1 tab DAILY PRN PO CONSTIPATION Last administered on 20:25; Admin Dose 1 TAB; Start 07/30/17 at 17:00 Mineral Oil (Mineral Oil) 30 ml BID PO Last administered on 08/05/17 08:57; Admin Dose 30 ML; Start 07/30/17 at 21:00 Furosemide (Lasix) 20 mg DAILY IV Last administered on 08/05/17 08:57; Admin Dose 20 MG; Start 08/01/17 at 09:00 Azithromycin (Zithromax) 500 mg DAILY PO Last administered on 08/05/17 08:58 ; Admin Dose 500 MG; Start 08/01/17 at 11:30; Stop 08/06/17 at 11:29 Lorazepam (Ativan) 0.5 mg Q6H PRN IV ANXIETY Last administered on 08/04/17 08 :52; Admin Dose 0.5 MG; Start 08/01/17 at 19:00 Apixaban (Eliquis) 5 mg BID PO ; Start 08/03/17 at 21:00; Status Future Hold Fentanyl (Sublimaze) 25 mcg Q1H PRN IV PAIN Last administered on 08/05/17 14: 42; Admin Dose 25 MCG; Start 08/04/17 at 00:00 Metoprolol Tartrate (Lopressor) 5 mg Q4H PRN IV ELEVATED HEART RATE; Start at 04:00 Famotidine 20 mg 20 mg BID IV Last administered on 08/05/17 08:57; Admin Dose 20 MG; Start 08/04/17 at 09:00 Sodium Chloride 1,000 ml @ 100 mls/hr Q10H IV Last administered on 08/05/17 10:04; Admin Dose 100 MLS/HR; Start 08/04/17 at 04:30 Alteplase, Recombinant 10 mg/ Sodium Chloride 100 ml @ 10 mls/hr Q10H IV Last administered on 08/05/17 06:11; Admin Dose 10 MLS/HR; Start 08/04/17 at 11:00 Alteplase, Recombinant 10 mg/ Sodium Chloride 100 ml @ 10 mls/hr Q10H IV Last administered on 08/05/17 10:03; Admin Dose 10 MLS/HR; Start 08/04/17 at 11:00 Heparin Sodium (Porcine) 250 ml @ 10 mls/hr Q24H IV Last administered on 08/05 12:05; Admin Dose 7 MLS/HR; Start 08/04/17 at 11:00 Heparin Sodium (Porcine) (Heparin [id number] Units/250 ml) 250 ml @ 10 mls/hr Q24H IV Last administered on 08/05/17 12:05; Admin Dose 7 MLS/HR; Start 08/04/17 at 11:00 Levalbuterol (Xopenex Neb) 0.63 mg Q6H PRN HHN SHORTNESS OF BREATH; Start 08/06 at 14:00 KRISTYN FLOR MD Aug 05, 2017 15:25
--- NOTE | 2017-08-05 16:20 | CONS ---
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 , s/p thrombectomy 07/23/2017 - H/o DVT s/p IVC filter - RUL mass-like lesion concerning for malignancy/Pulmonary nodule with possible PNA per pulmonary - declining biopsy - Bilateral adrenal nodules concerning for malignancy per CT - COPD/emphysema - Hypercoagulation - Dyslipidemia Recommendations: - monitor closely off antibiotics - trend WBC - pending: procalcitonin (ordered on 08/01/2017) - probiotics Problems: Consultation Date/Type/Reason Admit Date/Time Jul 21, 2017 at 23:03 Initial Consult Date 07/23/17 Type of Consultation: id Referring Provider: SEBAS LALA MD Exam/Review of Systems Vital Signs Vitals Vital Signs Date Time Temp Pulse Resp B/P Pulse Ox O2 Delivery O2 Flow Rate FiO2 08/05/17 14:00 97 29 122/77 97 Room Air 08/05/17 12:00 98.2 08/05/17 09:32 21 Intake and Output 08/04/17 08/04/17 08/05/17 15:00 23:00 07:00 Intake Total 1003 ml 1043 ml 1072 ml Output Total 865 ml 435 ml 230 ml Balance 138 ml 608 ml 842 ml Results Result Diagram: 08/05/17 1139 08/05/17 1139 Results 24 hrs Laboratory Tests Test 08/04/17 21:30 08/04/17 21:50 08/04/17 21:51 08/04/17 21:55 Sodium Level 139 Potassium Level 4.4 Chloride Level 100 Carbon Dioxide Level 28 Anion Gap 15 Blood Urea Nitrogen 17 Creatinine 0.77 Glucose Level 101 Calcium Level 8.9 Phosphorus Level 3.5 Magnesium Level 2.1 White Blood Count 12.5 H Red Blood Count 3.43 L Hemoglobin 9.4 L Hematocrit 29.4 L Mean Corpuscular Volume 85.7 Mean Corpuscular Hemoglobin 27.4 L Mean Corpuscular Hemoglobin Concent 32.0 Red Cell Distribution Width 15.1 H Platelet Count 329 Mean Platelet Volume 9.4 Neutrophils % 79.6 H Lymphocytes % 10.3 L Monocytes % 7.5 Eosinophils % 1.0 Basophils % 0.4 Nucleated Red Blood Cells % 0.0 Neutrophils # 9.9 H Lymphocytes # 1.3 Monocytes # 0.9 Eosinophils # 0.1 Basophils # 0.1 Nucleated Red Blood Cells # 0.0 Activated Partial Thromboplast Time 60.2 H Prothrombin Time 16.2 H Prothrombin Time Ratio 1.3 INR International Normalized Ratio 1.29 Fibrinogen 322.0 # Test 08/05/17 04:58 08/05/17 05:00 08/05/17 11:39 White Blood Count 11.1 H 12.4 H Red Blood Count 3.28 L 3.30 L Hemoglobin 8.8 L 9.1 L Hematocrit 27.9 L 28.4 L Mean Corpuscular Volume 85.1 86.1 Mean Corpuscular Hemoglobin 26.8 L 27.6 L Mean Corpuscular Hemoglobin Concent 31.5 L 32.0 Red Cell Distribution Width 15.4 H 15.1 H Platelet Count 311 324 Mean Platelet Volume 9.5 9.8 Neutrophils % 79.7 H 83.8 H Lymphocytes % 9.2 L 7.0 L Monocytes % 8.1 6.6 Eosinophils % 1.5 0.9 Basophils % 0.3 0.3 Nucleated Red Blood Cells % 0.0 0.0 Neutrophils # 8.9 H 10.4 H Lymphocytes # 1.0 0.9 Monocytes # 0.9 0.8 Eosinophils # 0.2 0.1 Basophils # 0.0 0.0 Nucleated Red Blood Cells # 0.0 0.0 Prothrombin Time 16.9 H 16.5 H Prothrombin Time Ratio 1.3 1.3 INR International Normalized Ratio 1.37 1.32 Activated Partial Thromboplast Time 68.7 H 51.4 H Fibrinogen 326.0 326.0 Sodium Level 139 138 Potassium Level 4.0 4.1 Chloride Level 102 101 Carbon Dioxide Level 28 26 Anion Gap 13 15 Blood Urea Nitrogen 17 16 Creatinine 0.70 0.67 Glucose Level 104 99 Calcium Level 8.6 8.5 Phosphorus Level 3.4 3.7 Magnesium Level 2.1 2.0 Medications Medications Current Medications Dutasteride (Avodart) 0.5 mg DAILY PO Last administered on 08/05/17t 08:57; Admin Dose 0.5 MG; Start 07/22/17 at 09:00 Gabapentin (Neurontin) 300 mg QHS PO Last administered on 08/02/17 20:30; Admin Dose 300 MG; Start 07/22/17 at 21:00 Salmeterol Xinafoate/ Fluticasone (Advair 250/50 Diskus) 1 inh BID INH Last administered on 08/05/17 08:56; Admin Dose 1 INH; Start 07/22/17 at 09:00 Atorvastatin Calcium (Lipitor) 10 mg QAM PO Last administered on 08/05/17 08: 57; Admin Dose 10 MG; Start 07/22/17 at 09:00 Acetaminophen (Tylenol Tab) 650 mg QID PRN PO PAIN LEVEL 1-5; Start 07/21/17 at 23:30 Ondansetron HCl (Zofran Inj) 4 mg Q6H PRN IV NAUSEA AND/OR VOMITING Last administered on 08/04/17 02:15; Admin Dose 4 MG; Start 07/21/17 at 23:30 Acetaminophen/ Hydrocodone Bitart ([place] (5/325)) 1 tab Q4H PRN PO PAIN LEVEL 4 -7 Last administered on 08/03/17 16:41; Admin Dose 1 TAB; Start 07/21/17 at 23:30 Hydromorphone HCl (Dilaudid) 1 mg Q3H PRN IV PAIN Last administered on 02:54; Admin Dose 1 MG; Start 07/23/17 at 22:00 Famotidine (Pepcid) 20 mg BID PO Last administered on 08/03/17 09:37; Admin Dose 20 MG; Start 07/26/17 at 21:00; Status Future Hold Metoprolol Tartrate (Lopressor) 12.5 mg BID PO Last administered on 08/05/17 08:57; Admin Dose 12.5 MG; Start 07/27/17 at 21:00 Docusate Sodium (Colace) 100 mg BID PO Last administered on 08/05/17 08:57; Admin Dose 100 MG; Start 07/28/17 at 21:00 Polyethylene Glycol (Miralax) 17 gm PRN PRN PO CONSTIPATION Last administered on 07/31/17 20:26; Admin Dose 17 GM; Start 07/28/17 at 15:00 Senna (Senokot) 1 tab DAILY PRN PO CONSTIPATION Last administered on 20:25; Admin Dose 1 TAB; Start 07/30/17 at 17:00 Mineral Oil (Mineral Oil) 30 ml BID PO Last administered on 08/05/17 08:57; Admin Dose 30 ML; Start 07/30/17 at 21:00 Furosemide (Lasix) 20 mg DAILY IV Last administered on 08/05/17 08:57; Admin Dose 20 MG; Start 08/01/17 at 09:00 Azithromycin (Zithromax) 500 mg DAILY PO Last administered on 08/05/17 08:58 ; Admin Dose 500 MG; Start 08/01/17 at 11:30; Stop 08/06/17 at 11:29 Lorazepam (Ativan) 0.5 mg Q6H PRN IV ANXIETY Last administered on 08/04/17 08 :52; Admin Dose 0.5 MG; Start 08/01/17 at 19:00 Apixaban (Eliquis) 5 mg BID PO ; Start 08/03/17 at 21:00; Status Future Hold Fentanyl (Sublimaze) 25 mcg Q1H PRN IV PAIN Last administered on 08/05/17 14: 42; Admin Dose 25 MCG; Start 08/04/17 at 00:00 Metoprolol Tartrate (Lopressor) 5 mg Q4H PRN IV ELEVATED HEART RATE; Start at 04:00 Famotidine 20 mg 20 mg BID IV Last administered on 08/05/17 08:57; Admin Dose 20 MG; Start 08/04/17 at 09:00 Sodium Chloride 1,000 ml @ 100 mls/hr Q10H IV Last administered on 08/05/17 10:04; Admin Dose 100 MLS/HR; Start 08/04/17 at 04:30 Alteplase, Recombinant 10 mg/ Sodium Chloride 100 ml @ 10 mls/hr Q10H IV Last administered on 08/05/17 06:11; Admin Dose 10 MLS/HR; Start 08/04/17 at 11:00 Alteplase, Recombinant 10 mg/ Sodium Chloride 100 ml @ 10 mls/hr Q10H IV Last administered on 08/05/17 10:03; Admin Dose 10 MLS/HR; Start 08/04/17 at 11:00 Heparin Sodium (Porcine) 250 ml @ 10 mls/hr Q24H IV Last administered on 08/05 12:05; Admin Dose 7 MLS/HR; Start 08/04/17 at 11:00 Heparin Sodium (Porcine) (Heparin [id number] Units/250 ml) 250 ml @ 10 mls/hr Q24H IV Last administered on 08/05/17 12:05; Admin Dose 7 MLS/HR; Start 08/04/17 at 11:00 Levalbuterol (Xopenex Neb) 0.63 mg Q6H PRN HHN SHORTNESS OF BREATH; Start 08/06 at 14:00 DESIREE FERGUSON MD Aug 05, 2017 16:20
[2017-08-05 17:45] LABS: BASOPHILS % 0.3 % (0.0-2.0); EOSINOPHILS # 0.2 10^3/ul (0.0-0.5); EOSINOPHILS % 1.4 % (0.0-7.0); HEMATOCRIT 27.9 % (42.0-52.0); LYMPHOCYTES # 1.1 10^3/ul (0.8-2.9); LYMPHOCYTES % 9.7 % (15.0-51.0); MEAN CORPUSCULAR HEMOGLOBIN 27.6 pg (29.0-33.0); MEAN CORPUSCULAR HGB CONC 32.3 g/dl (32.0-37.0); MEAN CORPUSCULAR VOLUME 85.6 fl (82.0-101.0); MEAN PLATELET VOLUME 9.2 fl (7.4-10.4); MONOCYTES % 8.3 % (0.0-11.0); NEUTROPHIL # 9.2 10^3/ul (1.6-7.5); PLATELET COUNT 303 10^3/UL (140-415); RED BLOOD COUNT 3.26 10^6/ul (4.70-6.10); RED CELL DISTRIBUTION WIDTH 15.3 % (11.5-14.5); WHITE BLOOD COUNT 11.7 10^3/ul (4.8-10.8)
[2017-08-05 17:59] LABS: INR 1.29; PROTIME 16.2 Sec (12.2-14.2); PT RATIO 1.3
[2017-08-05 18:04] LABS: CALCIUM 8.4 mg/dl (8.4-10.2); CREATININE 0.65 mg/dl (0.61-1.24); PHOSPHORUS 3.7 mg/dl (2.5-4.9)
[2017-08-05 18:11] LABS: PARTIAL THROMBOPLASTIN TIME 95.2 Sec (25.0-35.0)
--- NOTE | 2017-08-05 18:37 | HPN ---
Date/Time of Note Date/Time of Note DATE: 08/05/17 TIME: 18:36 Interval H&P Admission Note Pt. seen H&P reviewed: Systems changes noted below improved motor/sensory, palpable right pedal pulse MATT MCCULLOUGH MD Aug 05, 2017 18:37
--- NOTE | 2017-08-05 18:38 | SIPON ---
Date/Time of Note Date/Time of Note DATE: 08/05/17 TIME: 18:37 Operative Report Preoperative Diagnosis RLE ILIOCAVAL THROMBOSIS, AND DVT RLE FEMPOP STENT GRAFT THROMBOSIS Postoperative Diagnosis SAME Operation/Procedure Performed LYSIS CHECK Surgeon see signature line language assistant NONE Anesthesia: moderate sedation Estimated blood loss: none Transfusion Required none Specimen NONE Grafts/Implants none Complications none MATT MCCULLOUGH MD Aug 05, 2017 18:38
--- NOTE | 2017-08-05 18:43 | OPR ---
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 Right femoral popliteal artery aneurysm 2. Right femoral-popliteal artery thrombosed stent graft 3. Right femoral popliteal DVT 4. Iliocaval thrombosis. POSTOPERATIVE DIAGNOSES: Same ANESTHESIA: Local with moderate sedation. ESTIMATED BLOOD LOSS: Minimal. COMPLICATIONS: None. HEPARIN: 800 units an hour per right groin sheath and left groin sheath. TPA: 1mg per hour via bilateral lysis catheters CONTRAST: As recorded. TRANSFUSIONS: None. ACCESS: 1. Left common femoral artery with a 6 Portuguese sheath. 2. Right common femoral vein with 6 Portuguese sheath. SEDATION: Under physician supervision with moderate sedation, fentanyl and Versed were administered intravenously under continuous monitoring by the interventional team and attending physician. Pulse oximeter, heart rate, blood pressures were continuously monitored by the interventional surgeon. The physician time was a total of 15 minutes of [id number] sedation time with the patient. INDICATIONS: This is a 72-year-old gentleman who had presented earlier in the week with bilateral lower extremity iliofemoral deep vein thrombosis and iliocaval deep vein thrombosis, and right popliteal artery aneurysm in which he had underwent stent grafting of the right fem-pop artery aneurysm and the lysis therapy of the bilateral lower extremity deep vein thrombosis. Subsequent to that, the patient did well with the lysis therapy after 3 days and was started on new treatment of anticoagulation with heparin and transitioned to Eliquis as the patient had failed the anticoagulation with Coumadin therapy. Today, the patient had refused to undergo lung biopsy secondary to new findings of pulmonary nodules and was transitioned from heparin to his Eliquis anticoagulation. It seems that the patient began to have symptoms of right lower extremity discomfort and pain and was identified to not have pedal pulses. The patient did not have much change in his edema; however, he began to have loss of motor and sensory. Based on these findings, the patient was informed of the alternatives, risks, and benefits and risks including but not limited to bleeding, thrombosis, embolization, myocardial infarction, , stroke, device malfunction, infection, nephrotoxicity, limb loss, nerve injury, intracranial hemorrhage, and the patient has agreed to proceed for lysis check PROCEDURES: 1. Lysis check via the left common femoral artery sheath. 2. Lysis check via the right common femoral vein sheath. 3. Right lower extremity angiogram 4. Right lower extremity Venography 5. Moderate sedation FINDINGS: The patient was continues to have improved flow along the iliocaval. The patient still has residual iliocaval vein thrombosis and within the IVC filter. The right femoral-popliteal stent graft with an improved channel developing across the lysis catheter DESCRIPTION OF PROCEDURE: The patient was brought into the angio suite and positioned in supine position on the fluoroscopic table. Sedation was administered without any complications. The patient's bilateral groins were then shaved, prepped and draped in usual standard sterile fashion. Time out and appropriate site was marked and confirmed. Local anesthesia was then infiltrated in the region of the bilateral common femoral vein sheath. At this point, using Visipaque contrast, right lower extremity venography and angiography was performed which identified right side with improved venous drainage and still has residual thrombus. The patient still has some thrombus in the inferior vena cava in the region of the IVC filter. We identified patient has improved flow of the right iliac venous system and right fempop artery segments Therefore, decision was made to continue with our lysis therapy through our bilateral lysis catheters for treatment distance provided by the catheters and plan to conclude tomorrow. The patient tolerated this procedure well and was taken back to the intensive care unit under close observation. The patient is to be receiving 1.0 mg of TPA via each lysis catheter and 800 units of heparin through each sheath as well. Patient tolerated procedure well. PLAN: Will plan to bring the patient back tomorrow for lysis check and possible thrombectomy. Will concluded lysis therapy tomorrow ASH MCCULLOUGH MD Aug 05, 2017 18:43
[2017-08-05] MEDS: GABAPENTIN 300 MG CAP PO SCH (20:31)
[2017-08-05] MEDS: ZOLPIDEM 5 MG TAB PO PRN (20:32)
--- NOTE | 2017-08-05 23:03 | RADRPT ---
PROCEDURE: US bilateral lower extremity veins. CLINICAL INDICATION: Bilateral leg pain and swelling. TECHNIQUE: Multiple longitudinal and transverse images of the bilateral lower extremity veins were attempted to be obtained with gonzalez scale and color Doppler imaging. The common femoral vein, femora l vein, and popliteal vein were evaluated. 2D grayscale measurements with compression sonography, co gibson Doppler, and pulsed Doppler with augmentation. COMPARISON: Right lower extremity venous Doppler dated 08/03/2017 which demonstrated acute deep ve nous thrombosis throughout the deep venous system of the right lower extremity. FINDINGS: There is acute deep venous thrombosis of the right common femoral vein and right femoral vein with l ack of flow and lack of compressibility. The veins are dilated and contain echogenic thrombus The pa tient was unable to cooperate for evaluation of the right popliteal vein. The patient was unable to cooperate for evaluation of the left lower extremity. IMPRESSION: 1. Acute deep venous thrombosis of the right common femoral vein and right femoral vein. 2. The patient was unable to cooperate for evaluation of the right popliteal vein. The patient was u nable to cooperate for evaluation of the entire left lower extremity. RPTAT: QQ .Dada Ortiz MD, Date Time Electronically viewed and signed by .Dada Ortiz MD, on 08/05/2017 23:03 .R/
[2017-08-06] VITALS (23 sets, daily range): BP systolic 105–141; BP diastolic 60–108; PULSE 89–118; RESP 17–38; Ht 198.1 cm; Wt 84.3 kg
[2017-08-06 01:02] LABS: BASOPHILS % 0.3 % (0.0-2.0); EOSINOPHILS # 0.2 10^3/ul (0.0-0.5); EOSINOPHILS % 1.9 % (0.0-7.0); HEMATOCRIT 27.2 % (42.0-52.0); HEMOGLOBIN 8.9 g/dl (14.0-18.0); LYMPHOCYTES # 1.1 10^3/ul (0.8-2.9); LYMPHOCYTES % 10.4 % (15.0-51.0); MEAN CORPUSCULAR HEMOGLOBIN 27.6 pg (29.0-33.0); MEAN CORPUSCULAR HGB CONC 32.7 g/dl (32.0-37.0); MEAN CORPUSCULAR VOLUME 84.5 fl (82.0-101.0); MEAN PLATELET VOLUME 9.3 fl (7.4-10.4); MONOCYTE # 0.9 10^3/ul (0.3-0.9); MONOCYTES % 8.7 % (0.0-11.0); NEUTROPHIL # 8.3 10^3/ul (1.6-7.5); NEUTROPHILS % 77.6 % (39.0-77.0); PLATELET COUNT 285 10^3/UL (140-415); RED BLOOD COUNT 3.22 10^6/ul (4.70-6.10); RED CELL DISTRIBUTION WIDTH 15.1 % (11.5-14.5); WHITE BLOOD COUNT 10.7 10^3/ul (4.8-10.8)
[2017-08-06 01:15] LABS: INR 1.3; PROTIME 16.3 Sec (12.2-14.2); PT RATIO 1.3
[2017-08-06 01:16] LABS: PARTIAL THROMBOPLASTIN TIME 56.2 Sec (25.0-35.0)
[2017-08-06 01:23] LABS: CALCIUM 8.7 mg/dl (8.4-10.2); CREATININE 0.6 mg/dl (0.61-1.24); PHOSPHORUS 3.5 mg/dl (2.5-4.9); POTASSIUM 4.2 mmol/L (3.5-5.1)
--- NOTE | 2017-08-06 03:25 | CONS ---
DATE OF ADMISSION: 07/21/2017 DATE OF CONSULTATION: REASON FOR CONSULTATION: Surgical. HISTORY OF PRESENT ILLNESS: This is a 72-year-old male who was admitted about 2 weeks ago with righ t lower extremity pain. Patient has a history of DVT in the left lower extremity, had undergone a I VC filter placement previously, about 9 years ago and on admission, was on Coumadin with an INR of 2 .54 on the day of admission. His workup included abdominal aortogram which showed infrarenal aortic aneurysm of 3.3 cm, right popliteal artery aneurysm 3.5 cm, with a luminal thrombus and high-grade stenosis. The patient also had a left popliteal artery aneurysm which was 1.5 cm. An IVC filter wa s seen. Iliac veins appeared to be enlarged. Patient had bilateral lower extremity thrombi, and IV C thrombus. Subsequently, the patient was started on heparin drip, and anticoagulation was started. On 07/24/2017, he underwent bilateral lower extremity venograms with thrombectomy of the right com mon femoral vein, external iliac vein, common iliac vein, left common femoral vein, left external il iac vein, left common iliac vein and thrombectomy of the inferior vena cava. At that time, a femoral popliteal stent graft, 8 x 10 mm and 8 x 5 mm, which appeared to be covered graft was also placed. Subsequently, the patient was taken back to surgery the next day for lysis c heck and a venogram of the lower extremity. The patient was found to have thrombus in the inferior vena cava, residual thrombus in the left iliac vein and was continued on TPN lysis. He again, subse quently, underwent a procedure where it appears that the lysis catheters were removed. Patient had to be taken back to surgery again on 08/04/2017 for mechanical and pharmaceutical thromb olysis and thrombectomy of the occluded stent graft. At that time, lysis catheters were placed agai n in the femoral and popliteal segment of the arterial vasculature. Lysis catheters were also place d in the right iliac, iliocaval segment with DVT. Again, he went to surgery subsequently on 017 and had a lysis check. Patient is currently in the intensive care unit on a TPA drip and Eliqui s. His last PTT was 95 with an INR of 1.29, with a hemoglobin of 9. Patient's further workup has also included a CT of the chest which showed an irregular peripheral ma ss-like lesion in the right upper lobe, which is 2.5 x 3.5 cm, possibly neoplastic. There is also r ight tracheal lymphadenopathy. PAST MEDICAL HISTORY: As above. MEDICATIONS: List reviewed, which includes: 1. Heparin. 2. Eliquis. PHYSICAL EXAMINATION: VITAL SIGNS: Blood pressure is 131/74, pulse is 100, respirations 18, saturation is 95% on room air . CARDIOVASCULAR: Regular rate and rhythm. LUNGS: Clear. ABDOMEN: Soft. Groin catheters are in place. EXTREMITIES: There are posterior tibial and dorsalis pedis Doppler signals. The right leg is edema tous with 2+ edema and swollen. The left leg appears to be less edematous. LABORATORY VALUES: As above. IMPRESSION: 1. DVT, bilateral lower extremities, and inferior vena cava. The DVT in the right lower extremity appears to be acute. Patient has undergone thrombectomy several times with lysis and done thromboly tics. At this time, the leg is still swollen. Clinically, there appears to be residual clot; howev er, the leg is viable. 2. The patient has also undergone a stent graft in the popliteal artery which has clotted, and has undergone a thrombectomy, and the leg appears to be viable with Doppler signals in the foot. 3. Patient has a lung mass, which is very worrisome for having neoplasm. RECOMMENDATIONS: 1. With resected lung mass, this needs to be biopsied at a later time when the patient is off antic oagulation and has been stabilized with respect to his DVT and his popliteal artery aneurysm. 2. With respect to the popliteal artery aneurysm, would continue anticoagulation to prevent any fur ther thrombosis. 3. With respect to the DVTs, would repeat an ultrasound to evaluate any DVTs and proceed accordingl y. Discuss with the patient's family. Dictated By: JOANNE CLEMENTE MD FM/FERNIE Conf#: [id number] DID#: [id number] CC: SEBAS LALA MD;*EndCC*
[2017-08-06] MEDS: FENTAnyl 50 MCG/ML VIAL IV PRN ×9 (04:08→21:48)
[2017-08-06 05:33] LABS: BASOPHILS % 0.2 % (0.0-2.0); EOSINOPHILS # 0.3 10^3/ul (0.0-0.5); EOSINOPHILS % 2.4 % (0.0-7.0); HEMATOCRIT 26.6 % (42.0-52.0); HEMOGLOBIN 8.6 g/dl (14.0-18.0); LYMPHOCYTES # 1.1 10^3/ul (0.8-2.9); LYMPHOCYTES % 10.5 % (15.0-51.0); MEAN CORPUSCULAR HEMOGLOBIN 27.4 pg (29.0-33.0); MEAN CORPUSCULAR HGB CONC 32.3 g/dl (32.0-37.0); MEAN CORPUSCULAR VOLUME 84.7 fl (82.0-101.0); MEAN PLATELET VOLUME 9.3 fl (7.4-10.4); MONOCYTES % 9.4 % (0.0-11.0); NEUTROPHIL # 7.8 10^3/ul (1.6-7.5); NEUTROPHILS % 76.4 % (39.0-77.0); PLATELET COUNT 276 10^3/UL (140-415); RED BLOOD COUNT 3.14 10^6/ul (4.70-6.10); RED CELL DISTRIBUTION WIDTH 15.3 % (11.5-14.5); WHITE BLOOD COUNT 10.3 10^3/ul (4.8-10.8)
[2017-08-06] MEDS: NS IV SCH ×5 (05:42→23:27)
[2017-08-06] MEDS: ALTEPLASE IV SCH ×5 (05:42→23:27)
[2017-08-06 05:56] LABS: INR 1.39; PROTIME 17.1 Sec (12.2-14.2); PT RATIO 1.3
[2017-08-06 05:59] LABS: CALCIUM 8.5 mg/dl (8.4-10.2); CREATININE 0.63 mg/dl (0.61-1.24); PHOSPHORUS 3.3 mg/dl (2.5-4.9)
[2017-08-06 06:11] LABS: POTASSIUM 3.9 mmol/L (3.5-5.1)
[2017-08-06 06:16] LABS: PARTIAL THROMBOPLASTIN TIME 76.8 Sec (25.0-35.0)
[2017-08-06] MEDS: HYDROmorphONE 1 MG/ML SYG IV PRN (06:40)
[2017-08-06] MEDS: SOD CHLORIDE 0.9% 1,000 ML IV SCH ×2 (07:19→20:26)
[2017-08-06] MEDS ORDERED: HYDROCODONE/APAP (5/325) TAB PO PRN (08:00)
[2017-08-06] MEDS: MINERAL OIL 30ML CUP PO SCH ×3 (09:00→20:31)
[2017-08-06] MEDS: DOCUSATE SODIUM 100 MG CAP PO SCH ×2 (09:11→20:30)
[2017-08-06] MEDS: ATORVASTATIN 10 MG TAB PO SCH (09:11)
[2017-08-06] MEDS: METOPROLOL 25 MG TAB PO SCH ×2 (09:11→20:31)
[2017-08-06] MEDS: DUTASTERIDE 0.5 MG CAP PO SCH (09:11)
[2017-08-06] MEDS: AZITHROMYCIN 250 MG TAB PO SCH (09:11)
[2017-08-06] MEDS: SALMETEROL/FLUTICASONE 250/50 INHA INH SCH ×2 (09:11→20:30)
[2017-08-06] MEDS: FUROSEMIDE 20 MG INJ IV SCH (09:17)
[2017-08-06] MEDS: FAMOTIDINE 20 MG INJ IV SCH ×2 (09:23→20:30)
--- NOTE | 2017-08-06 11:00 | CONS ---
Date/Time of Note Date/Time of Note DATE: 08/06/17 TIME: 10:56 Assessment/Plan Assessment/Plan Additional Assessment/Plan Assessment and recommendations; 1. 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 Status post stenting of left popliteal artery. Patient doing fairly well over the last 48 hours. 2. Right upper lobe lung nodule which is completely calcified. Patient however also has a peripheral lesion which is possibly from acute pneumonia however underlying malignancy cannot be excluded entirely at this point. 3. Underlying severe COPD. 4. History of DVT dating several years ago that would exclude the possibility of underlying lung malignancy as the etiology for hyper coagulable state. Continue current treatment. Workup of the lung lesions can be done on an outpatient basis when the patient's vascular status is stable. Consultation Date/Type/Reason Admit Date/Time Jul 21, 2017 at 23:03 Initial Consult Date 08/04/17 Type of Consultation: Pulmonary/critical care Referring Provider: SEBAS LALA MD 24 HR Interval Summary Free Text/Dictation Patient's condition is stable. Denies any shortness of breath. Complains of minimum pain in the right lower extremity. General exam; elderly male, awake and alert. Currently in no distress. Exam/Review of Systems Vital Signs Vitals Vital Signs Date Time Temp Pulse Resp B/P Pulse Ox O2 Delivery O2 Flow Rate FiO2 08/06/17 08:00 98 08/06/17 06:00 21 121/71 94 Room Air 08/06/17 04:00 98.2 08/05/17 09:32 21 Intake and Output 08/05/17 08/05/17 08/06/17 15:00 23:00 07:00 Intake Total 1276 ml 1413 ml 964.50 ml Output Total 1215 ml 325 ml 550 ml Balance 61 ml 1088 ml 414.50 ml Exam HEENT exam; supple neck, no JVD. No lymphadenopathy. Midline trachea. No neck masses. No thyromegaly. Chest exam; diminished but clear breath sounds. S1-S2 audible, no murmurs. Regular rhythm. Abdomen exam; soft, nontender. No organomegaly. Bowel sounds audible. Extremity exam; no peripheral edema. Right dorsalis pedis is audible by Doppler. TREASURY ACCOUNTANT exam; no focal deficit. Results Result Diagram: 08/06/17 0458 08/06/17 0457 Results 24 hrs Laboratory Tests Test 08/05/17 11:39 08/05/17 17:37 08/06/17 00:20 08/06/17 04:57 White Blood Count 12.4 H 11.7 H 10.7 Red Blood Count 3.30 L 3.26 L 3.22 L Hemoglobin 9.1 L 9.0 L 8.9 L Hematocrit 28.4 L 27.9 L 27.2 L Mean Corpuscular Volume 86.1 85.6 84.5 Mean Corpuscular Hemoglobin 27.6 L 27.6 L 27.6 L Mean Corpuscular Hemoglobin Concent 32.0 32.3 32.7 Red Cell Distribution Width 15.1 H 15.3 H 15.1 H Platelet Count 324 303 285 Mean Platelet Volume 9.8 9.2 9.3 Neutrophils % 83.8 H 79.0 H 77.6 H Lymphocytes % 7.0 L 9.7 L 10.4 L Monocytes % 6.6 8.3 8.7 Eosinophils % 0.9 1.4 1.9 Basophils % 0.3 0.3 0.3 Nucleated Red Blood Cells % 0.0 0.0 0.0 Neutrophils # 10.4 H 9.2 H 8.3 H Lymphocytes # 0.9 1.1 1.1 Monocytes # 0.8 1.0 H 0.9 Eosinophils # 0.1 0.2 0.2 Basophils # 0.0 0.0 0.0 Nucleated Red Blood Cells # 0.0 0.0 0.0 Prothrombin Time 16.5 H 16.2 H 16.3 H 17.1 H Prothrombin Time Ratio 1.3 1.3 1.3 1.3 INR International Normalized Ratio 1.32 1.29 1.30 1.39 Activated Partial Thromboplast Time 51.4 H 95.2 *H 56.2 H 76.8 *H Fibrinogen 326.0 305.0 # 318.0 310.0 Sodium Level 138 138 138 138 Potassium Level 4.1 4.0 4.2 3.9 Chloride Level 101 102 105 105 Carbon Dioxide Level 26 26 27 27 Anion Gap 15 14 10 10 Blood Urea Nitrogen 16 16 15 13 Creatinine 0.67 0.65 0.60 L 0.63 Glucose Level 99 97 101 93 Calcium Level 8.5 8.4 8.7 8.5 Phosphorus Level 3.7 3.7 3.5 3.3 Magnesium Level 2.0 2.0 2.0 2.0 Test 08/06/17 04:58 08/06/17 06:42 White Blood Count 10.3 Red Blood Count 3.14 L Hemoglobin 8.6 L Hematocrit 26.6 L Mean Corpuscular Volume 84.7 Mean Corpuscular Hemoglobin 27.4 L Mean Corpuscular Hemoglobin Concent 32.3 Red Cell Distribution Width 15.3 H Platelet Count 276 Mean Platelet Volume 9.3 Neutrophils % 76.4 Lymphocytes % 10.5 L Monocytes % 9.4 Eosinophils % 2.4 Basophils % 0.2 Nucleated Red Blood Cells % 0.0 Neutrophils # 7.8 H Lymphocytes # 1.1 Monocytes # 1.0 H Eosinophils # 0.3 Basophils # 0.0 Nucleated Red Blood Cells # 0.0 Lab Scanned Report REFERENCE LAB Medications Medications Current Medications Dutasteride (Avodart) 0.5 mg DAILY PO Last administered on 08/06/17 09:11; Admin Dose 0.5 MG; Start 07/22/17 at 09:00 Gabapentin (Neurontin) 300 mg QHS PO Last administered on 08/05/17 20:31; Admin Dose 300 MG; Start 07/22/17 at 21:00 Salmeterol Xinafoate/ Fluticasone (Advair 250/50 Diskus) 1 inh BID INH Last administered on 08/06/17 09:11; Admin Dose 1 INH; Start 07/22/17 at 09:00 Atorvastatin Calcium (Lipitor) 10 mg QAM PO Last administered on 08/06/17 09: 11; Admin Dose 10 MG; Start 07/22/17 at 09:00 Acetaminophen (Tylenol Tab) 650 mg QID PRN PO PAIN LEVEL 1-5; Start 07/21/17 at 23:30 Ondansetron HCl (Zofran Inj) 4 mg Q6H PRN IV NAUSEA AND/OR VOMITING Last administered on 08/04/17 02:15; Admin Dose 4 MG; Start 07/21/17 at 23:30 Acetaminophen/ Hydrocodone Bitart ([place] (5/325)) 1 tab Q4H PRN PO PAIN LEVEL 4 -7 Last administered on 08/03/17 16:41; Admin Dose 1 TAB; Start 07/21/17 at 23:30 Famotidine (Pepcid) 20 mg BID PO Last administered on 08/03/17 09:37; Admin Dose 20 MG; Start 07/26/17 at 21:00; Status Future Hold Metoprolol Tartrate (Lopressor) 12.5 mg BID PO Last administered on 08/06/17 09:11; Admin Dose 12.5 MG; Start 07/27/17 at 21:00 Docusate Sodium (Colace) 100 mg BID PO Last administered on 08/06/17 09:11; Admin Dose 100 MG; Start 07/28/17 at 21:00 Polyethylene Glycol (Miralax) 17 gm PRN PRN PO CONSTIPATION Last administered on 07/31/17 20:26; Admin Dose 17 GM; Start 07/28/17 at 15:00 Senna (Senokot) 1 tab DAILY PRN PO CONSTIPATION Last administered on 20:25; Admin Dose 1 TAB; Start 07/30/17 at 17:00 Mineral Oil (Mineral Oil) 30 ml BID PO Last administered on 08/05/17 08:57; Admin Dose 30 ML; Start 07/30/17 at 21:00 Furosemide (Lasix) 20 mg DAILY IV Last administered on 08/06/17 09:17; Admin Dose 20 MG; Start 08/01/17 at 09:00 Azithromycin (Zithromax) 500 mg DAILY PO Last administered on 08/06/17 09:11; Admin Dose 500 MG; Start 08/01/17 at 11:30; Stop 08/06/17 at 11:29 Lorazepam (Ativan) 0.5 mg Q6H PRN IV ANXIETY Last administered on 08/04/17 08 :52; Admin Dose 0.5 MG; Start 08/01/17 at 19:00 Apixaban (Eliquis) 5 mg BID PO ; Start 08/03/17 at 21:00; Status Future Hold Fentanyl (Sublimaze) 25 mcg Q1H PRN IV PAIN Last administered on 08/06/17 10: 24; Admin Dose 25 MCG; Start 08/04/17 at 00:00 Metoprolol Tartrate (Lopressor) 5 mg Q4H PRN IV ELEVATED HEART RATE; Start at 04:00 Famotidine 20 mg 20 mg BID IV Last administered on 08/06/17 09:23; Admin Dose 20 MG; Start 08/04/17 at 09:00 Sodium Chloride 1,000 ml @ 100 mls/hr Q10H IV Last administered on 08/06/17 07:19; Admin Dose 100 MLS/HR; Start 08/04/17 at 04:30 Alteplase, Recombinant 10 mg/ Sodium Chloride 100 ml @ 10 mls/hr Q10H IV Last administered on 08/06/17 07:20; Admin Dose 10 MLS/HR; Start 08/04/17 at 11:00 Alteplase, Recombinant 10 mg/ Sodium Chloride 100 ml @ 10 mls/hr Q10H IV Last administered on 08/05/17 20:04; Admin Dose 10 MLS/HR; Start 08/04/17 at 11:00 Heparin Sodium (Porcine) 250 ml @ 10 mls/hr Q24H IV Last administered on 08/05 12:05; Admin Dose 7 MLS/HR; Start 08/04/17 at 11:00 Heparin Sodium (Porcine) (Heparin 26829 Units/250 ml) 250 ml @ 10 mls/hr Q24H IV Last administered on 08/05/17 12:05; Admin Dose 7 MLS/HR; Start 08/04/17 at 11:00 Levalbuterol (Xopenex Neb) 0.63 mg Q6H PRN HHN SHORTNESS OF BREATH; Start 08/06 at 14:00 Acetaminophen/ Hydrocodone Bitart ([place] (5/325)) 2 tab Q4H PRN PO PAIN LEVEL 6 -10; Start 08/06/17 at 08:00 RICH RUVALCABA Aug 06, 2017 11:00
--- NOTE | 2017-08-06 11:38 | CONS ---
Date/Time of Note Date/Time of Note DATE: 08/06/17 TIME: 11:35 Assessment/Plan Assessment/Plan Chief Complaint/Hosp Course IMPRESSION: 1. Preoperative evaluation prior to possible surgical vascular intervention.- negative trop x3 2. Hypertension. 3. Dyslipidemia. 4. Abnormal electrocardiogram with nonspecific ST and T-wave abnormalities. 5. Left lower extremity deep venous thrombosis status post inferior vena cava filter. Now with recurrent LE thrombosis requiring rep-eat lysis/thrombectomy and placement of perfusion catheter 6. Chronic obstructive pulmonary disease. 7. 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 Tachycardia-? S Tach recurrent after recurrent thrombosis requiring repeat thromobolysis/thrombectomy-slowly improving 9. Lung mass on CT Recc: -Back in ICU. Will follow HR closely on tele monitoing -Continue heparin -Follow perfusion catheter with TPA -Continue statin -Follow volume status closely and will start gentle lasix diuresis -Continue low dose BB as tolerated -1To go for repeat angio today to assess thrombosis Problems: Consultation Date/Type/Reason Admit Date/Time Jul 21, 2017 at 23:03 Initial Consult Date 07/23/17 Type of Consultation: cardiology Reason for Consultation HTN Referring Provider: SEBAS LALA MD Exam/Review of Systems Vital Signs Vitals Vital Signs Date Time Temp Pulse Resp B/P Pulse Ox O2 Delivery O2 Flow Rate FiO2 08/06/17 11:00 96 25 120/79 97 Room Air 08/06/17 08:00 98.2 08/05/17 09:32 21 Intake and Output 08/05/17 08/05/17 08/06/17 15:00 23:00 07:00 Intake Total 1276 ml 1413 ml 964.50 ml Output Total 1215 ml 325 ml 550 ml Balance 61 ml 1088 ml 414.50 ml Exam Review of Systems: CONSTITUTIONAL: No fevers, chills. PULMONARY: No sob CARDIOVASCULAR: No chest pain/palpitations GASTROINTESTINAL: No nausea/vomiting. GENITOURINARY: No hematuria/dysuria. MUSCULOSKELETAL: No myagias/arthalgias. PSYCHIATRIC: The patient denies depression. NEUROLOGIC: No weakness Constitutional: alert Psych: no complaints Head: normocephalic ENMT: mucosa pink and moist Neck: jvd (9 cm water), supple Respiratory: diminished breath sounds (at bases/B) Cardiovascular: regular rate and rhythm Gastrointestinal: non-tender, soft Musculoskeletal: muscle tone (normal) Extremities: pitting pedal edema (R>L) Neurological: other (No focal deficits) Results Result Diagram: 08/06/17 0458 08/06/17 0457 Results 24 hrs Laboratory Tests Test 08/05/17 11:39 08/05/17 17:37 08/06/17 00:20 08/06/17 04:57 White Blood Count 12.4 H 11.7 H 10.7 Red Blood Count 3.30 L 3.26 L 3.22 L Hemoglobin 9.1 L 9.0 L 8.9 L Hematocrit 28.4 L 27.9 L 27.2 L Mean Corpuscular Volume 86.1 85.6 84.5 Mean Corpuscular Hemoglobin 27.6 L 27.6 L 27.6 L Mean Corpuscular Hemoglobin Concent 32.0 32.3 32.7 Red Cell Distribution Width 15.1 H 15.3 H 15.1 H Platelet Count 324 303 285 Mean Platelet Volume 9.8 9.2 9.3 Neutrophils % 83.8 H 79.0 H 77.6 H Lymphocytes % 7.0 L 9.7 L 10.4 L Monocytes % 6.6 8.3 8.7 Eosinophils % 0.9 1.4 1.9 Basophils % 0.3 0.3 0.3 Nucleated Red Blood Cells % 0.0 0.0 0.0 Neutrophils # 10.4 H 9.2 H 8.3 H Lymphocytes # 0.9 1.1 1.1 Monocytes # 0.8 1.0 H 0.9 Eosinophils # 0.1 0.2 0.2 Basophils # 0.0 0.0 0.0 Nucleated Red Blood Cells # 0.0 0.0 0.0 Prothrombin Time 16.5 H 16.2 H 16.3 H 17.1 H Prothrombin Time Ratio 1.3 1.3 1.3 1.3 INR International Normalized Ratio 1.32 1.29 1.30 1.39 Activated Partial Thromboplast Time 51.4 H 95.2 *H 56.2 H 76.8 *H Fibrinogen 326.0 305.0 # 318.0 310.0 Sodium Level 138 138 138 138 Potassium Level 4.1 4.0 4.2 3.9 Chloride Level 101 102 105 105 Carbon Dioxide Level 26 26 27 27 Anion Gap 15 14 10 10 Blood Urea Nitrogen 16 16 15 13 Creatinine 0.67 0.65 0.60 L 0.63 Glucose Level 99 97 101 93 Calcium Level 8.5 8.4 8.7 8.5 Phosphorus Level 3.7 3.7 3.5 3.3 Magnesium Level 2.0 2.0 2.0 2.0 Test 08/06/17 04:58 08/06/17 06:42 White Blood Count 10.3 Red Blood Count 3.14 L Hemoglobin 8.6 L Hematocrit 26.6 L Mean Corpuscular Volume 84.7 Mean Corpuscular Hemoglobin 27.4 L Mean Corpuscular Hemoglobin Concent 32.3 Red Cell Distribution Width 15.3 H Platelet Count 276 Mean Platelet Volume 9.3 Neutrophils % 76.4 Lymphocytes % 10.5 L Monocytes % 9.4 Eosinophils % 2.4 Basophils % 0.2 Nucleated Red Blood Cells % 0.0 Neutrophils # 7.8 H Lymphocytes # 1.1 Monocytes # 1.0 H Eosinophils # 0.3 Basophils # 0.0 Nucleated Red Blood Cells # 0.0 Lab Scanned Report REFERENCE LAB Medications Medications Current Medications Dutasteride (Avodart) 0.5 mg DAILY PO Last administered on 08/06/17 09:11; Admin Dose 0.5 MG; Start 07/22/17 at 09:00 Gabapentin (Neurontin) 300 mg QHS PO Last administered on 08/05/17 20:31; Admin Dose 300 MG; Start 07/22/17 at 21:00 Salmeterol Xinafoate/ Fluticasone (Advair 250/50 Diskus) 1 inh BID INH Last administered on 08/06/17 09:11; Admin Dose 1 INH; Start 07/22/17 at 09:00 Atorvastatin Calcium (Lipitor) 10 mg QAM PO Last administered on 08/06/17 09: 11; Admin Dose 10 MG; Start 07/22/17 at 09:00 Acetaminophen (Tylenol Tab) 650 mg QID PRN PO PAIN LEVEL 1-5; Start 07/21/17 at 23:30 Ondansetron HCl (Zofran Inj) 4 mg Q6H PRN IV NAUSEA AND/OR VOMITING Last administered on 08/04/17 02:15; Admin Dose 4 MG; Start 07/21/17 at 23:30 Acetaminophen/ Hydrocodone Bitart ([place] (5/325)) 1 tab Q4H PRN PO PAIN LEVEL 4 -7 Last administered on 08/03/17 16:41; Admin Dose 1 TAB; Start 07/21/17 at 23:30 Famotidine (Pepcid) 20 mg BID PO Last administered on 08/03/17 09:37; Admin Dose 20 MG; Start 07/26/17 at 21:00; Status Future Hold Metoprolol Tartrate (Lopressor) 12.5 mg BID PO Last administered on 08/06/17 09:11; Admin Dose 12.5 MG; Start 07/27/17 at 21:00 Docusate Sodium (Colace) 100 mg BID PO Last administered on 08/06/17 09:11; Admin Dose 100 MG; Start 07/28/17 at 21:00 Polyethylene Glycol (Miralax) 17 gm PRN PRN PO CONSTIPATION Last administered on 07/31/17 20:26; Admin Dose 17 GM; Start 07/28/17 at 15:00 Senna (Senokot) 1 tab DAILY PRN PO CONSTIPATION Last administered on 20:25; Admin Dose 1 TAB; Start 07/30/17 at 17:00 Mineral Oil (Mineral Oil) 30 ml BID PO Last administered on 08/05/17 08:57; Admin Dose 30 ML; Start 07/30/17 at 21:00 Furosemide (Lasix) 20 mg DAILY IV Last administered on 08/06/17 09:17; Admin Dose 20 MG; Start 08/01/17 at 09:00 Lorazepam (Ativan) 0.5 mg Q6H PRN IV ANXIETY Last administered on 08/04/17 08 :52; Admin Dose 0.5 MG; Start 08/01/17 at 19:00 Apixaban (Eliquis) 5 mg BID PO ; Start 08/03/17 at 21:00; Status Future Hold Fentanyl (Sublimaze) 25 mcg Q1H PRN IV PAIN Last administered on 08/06/17 11: 12; Admin Dose 25 MCG; Start 08/04/17 at 00:00 Metoprolol Tartrate (Lopressor) 5 mg Q4H PRN IV ELEVATED HEART RATE; Start at 04:00 Famotidine 20 mg 20 mg BID IV Last administered on 08/06/17 09:23; Admin Dose 20 MG; Start 08/04/17 at 09:00 Sodium Chloride 1,000 ml @ 100 mls/hr Q10H IV Last administered on 08/06/17 07:19; Admin Dose 100 MLS/HR; Start 08/04/17 at 04:30 Alteplase, Recombinant 10 mg/ Sodium Chloride 100 ml @ 10 mls/hr Q10H IV Last administered on 08/06/17 07:20; Admin Dose 10 MLS/HR; Start 08/04/17 at 11:00 Alteplase, Recombinant 10 mg/ Sodium Chloride 100 ml @ 10 mls/hr Q10H IV Last administered on 08/05/17 20:04; Admin Dose 10 MLS/HR; Start 08/04/17 at 11:00 Heparin Sodium (Porcine) 250 ml @ 10 mls/hr Q24H IV Last administered on 08/05 12:05; Admin Dose 7 MLS/HR; Start 08/04/17 at 11:00 Heparin Sodium (Porcine) (Heparin 61539 Units/250 ml) 250 ml @ 10 mls/hr Q24H IV Last administered on 08/05/17 12:05; Admin Dose 7 MLS/HR; Start 08/04/17 at 11:00 Levalbuterol (Xopenex Neb) 0.63 mg Q6H PRN HHN SHORTNESS OF BREATH; Start 08/06 at 14:00 Acetaminophen/ Hydrocodone Bitart ([place] (5/325)) 2 tab Q4H PRN PO PAIN LEVEL 6 -10; Start 08/06/17 at 08:00 AIMEE LANDEROS Aug 06, 2017 11:38
[2017-08-06 12:57] LABS: BASOPHILS % 0.3 % (0.0-2.0); EOSINOPHILS # 0.2 10^3/ul (0.0-0.5); EOSINOPHILS % 1.6 % (0.0-7.0); HEMATOCRIT 29.8 % (42.0-52.0); HEMOGLOBIN 9.2 g/dl (14.0-18.0); LYMPHOCYTES % 9.2 % (15.0-51.0); MEAN CORPUSCULAR HEMOGLOBIN 26.4 pg (29.0-33.0); MEAN CORPUSCULAR HGB CONC 30.9 g/dl (32.0-37.0); MEAN CORPUSCULAR VOLUME 85.4 fl (82.0-101.0); MEAN PLATELET VOLUME 9.5 fl (7.4-10.4); MONOCYTE # 0.9 10^3/ul (0.3-0.9); MONOCYTES % 8.7 % (0.0-11.0); NEUTROPHIL # 8.2 10^3/ul (1.6-7.5); PLATELET COUNT 255 10^3/UL (140-415); RED BLOOD COUNT 3.49 10^6/ul (4.70-6.10); RED CELL DISTRIBUTION WIDTH 15.5 % (11.5-14.5); WHITE BLOOD COUNT 10.4 10^3/ul (4.8-10.8)
--- NOTE | 2017-08-06 13:09 | PN ---
Date/Time of Note Date/Time of Note DATE: 08/06/17 TIME: 13:05 Assessment/Plan VTE Prophylaxis VTE Prophylaxis Intervention: SCD's Lines/Catheters IV Catheter Type (from Nrs): Venous Sheath Urinary Cath still in place: Yes Reason Cath still needed: urinary retention Assessment/Plan Chief Complaint/Hosp Course No acute events overnight, patient is awake alert, Heparin ans Altepase going to bilateral sheaths. Pending vascular procedure today. 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 Patient is currently on heparin and ATP. Continue ICU care per vascular surgery recommendations. -Right upper lobe lung mass. Patient refused lung biopsy at this time. Dr Garay is following in pulmonology consultation. Continue Zithromax with this recommendation for follow-up CT in 3 weeks. -Right lower extremity pain, continue [place] and morphine as needed for pain. 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 Mendiola is following in vascular surgery consultation. S/p multiple vascular interventions. -Hypercoagulation work up is neg, Dr Amaya is following in hematology consultation. -Left leg DVT -COPD -Dyslipidemia Further recommendations based on clinical course. Plan of care discussed with Dr. Drake Problems: Exam/Review of Systems Vital Signs Vitals Vital Signs Date Time Temp Pulse Resp B/P Pulse Ox O2 Delivery O2 Flow Rate FiO2 08/06/17 11:00 96 25 120/79 97 Room Air 08/06/17 08:00 98.2 08/05/17 09:32 21 Intake and Output 08/05/17 08/05/17 08/06/17 15:00 23:00 07:00 Intake Total 1276 ml 1413 ml 964.50 ml Output Total 1215 ml 325 ml 550 ml Balance 61 ml 1088 ml 414.50 ml Exam Constitutional: alert, oriented Respiratory: normal air movement Cardiovascular: nl pulses Gastrointestinal: non-tender, soft Musculoskeletal: nl extremities to inspection Extremities: edema, bilateral sheaths Neurological: nl mental status Results Result Diagram: 08/06/17 1227 08/06/17 0457 Results 24 hrs Laboratory Tests Test 08/05/17 17:37 08/06/17 00:20 08/06/17 04:57 08/06/17 04:58 White Blood Count 11.7 H 10.7 10.3 Red Blood Count 3.26 L 3.22 L 3.14 L Hemoglobin 9.0 L 8.9 L 8.6 L Hematocrit 27.9 L 27.2 L 26.6 L Mean Corpuscular Volume 85.6 84.5 84.7 Mean Corpuscular Hemoglobin 27.6 L 27.6 L 27.4 L Mean Corpuscular Hemoglobin Concent 32.3 32.7 32.3 Red Cell Distribution Width 15.3 H 15.1 H 15.3 H Platelet Count 303 285 276 Mean Platelet Volume 9.2 9.3 9.3 Neutrophils % 79.0 H 77.6 H 76.4 Lymphocytes % 9.7 L 10.4 L 10.5 L Monocytes % 8.3 8.7 9.4 Eosinophils % 1.4 1.9 2.4 Basophils % 0.3 0.3 0.2 Nucleated Red Blood Cells % 0.0 0.0 0.0 Neutrophils # 9.2 H 8.3 H 7.8 H Lymphocytes # 1.1 1.1 1.1 Monocytes # 1.0 H 0.9 1.0 H Eosinophils # 0.2 0.2 0.3 Basophils # 0.0 0.0 0.0 Nucleated Red Blood Cells # 0.0 0.0 0.0 Prothrombin Time 16.2 H 16.3 H 17.1 H Prothrombin Time Ratio 1.3 1.3 1.3 INR International Normalized Ratio 1.29 1.30 1.39 Activated Partial Thromboplast Time 95.2 *H 56.2 H 76.8 *H Fibrinogen 305.0 # 318.0 310.0 Sodium Level 138 138 138 Potassium Level 4.0 4.2 3.9 Chloride Level 102 105 105 Carbon Dioxide Level 26 27 27 Anion Gap 14 10 10 Blood Urea Nitrogen 16 15 13 Creatinine 0.65 0.60 L 0.63 Glucose Level 97 101 93 Calcium Level 8.4 8.7 8.5 Phosphorus Level 3.7 3.5 3.3 Magnesium Level 2.0 2.0 2.0 Test 08/06/17 06:42 08/06/17 12:27 Lab Scanned Report REFERENCE LAB White Blood Count 10.4 Red Blood Count 3.49 L Hemoglobin 9.2 L Hematocrit 29.8 L Mean Corpuscular Volume 85.4 Mean Corpuscular Hemoglobin 26.4 L Mean Corpuscular Hemoglobin Concent 30.9 L Red Cell Distribution Width 15.5 H Platelet Count 255 Mean Platelet Volume 9.5 Neutrophils % 79.0 H Lymphocytes % 9.2 L Monocytes % 8.7 Eosinophils % 1.6 Basophils % 0.3 Nucleated Red Blood Cells % 0.0 Neutrophils # 8.2 H Lymphocytes # 1.0 Monocytes # 0.9 Eosinophils # 0.2 Basophils # 0.0 Nucleated Red Blood Cells # 0.0 Medications Medications Current Medications Dutasteride (Avodart) 0.5 mg DAILY PO Last administered on 08/06/17 09:11; Admin Dose 0.5 MG; Start 07/22/17 at 09:00 Gabapentin (Neurontin) 300 mg QHS PO Last administered on 08/05/17 20:31; Admin Dose 300 MG; Start 07/22/17 at 21:00 Salmeterol Xinafoate/ Fluticasone (Advair 250/50 Diskus) 1 inh BID INH Last administered on 08/06/17 09:11; Admin Dose 1 INH; Start 07/22/17 at 09:00 Atorvastatin Calcium (Lipitor) 10 mg QAM PO Last administered on 08/06/17 09: 11; Admin Dose 10 MG; Start 07/22/17 at 09:00 Acetaminophen (Tylenol Tab) 650 mg QID PRN PO PAIN LEVEL 1-5; Start 07/21/17 at 23:30 Ondansetron HCl (Zofran Inj) 4 mg Q6H PRN IV NAUSEA AND/OR VOMITING Last administered on 08/04/17 02:15; Admin Dose 4 MG; Start 07/21/17 at 23:30 Acetaminophen/ Hydrocodone Bitart ([place] (5/325)) 1 tab Q4H PRN PO PAIN LEVEL 4 -7 Last administered on 08/03/17 16:41; Admin Dose 1 TAB; Start 07/21/17 at 23:30 Famotidine (Pepcid) 20 mg BID PO Last administered on 08/03/17 09:37; Admin Dose 20 MG; Start 07/26/17 at 21:00; Status Future Hold Metoprolol Tartrate (Lopressor) 12.5 mg BID PO Last administered on 08/06/17 09:11; Admin Dose 12.5 MG; Start 07/27/17 at 21:00 Docusate Sodium (Colace) 100 mg BID PO Last administered on 08/06/17 09:11; Admin Dose 100 MG; Start 07/28/17 at 21:00 Polyethylene Glycol (Miralax) 17 gm PRN PRN PO CONSTIPATION Last administered on 07/31/17 20:26; Admin Dose 17 GM; Start 07/28/17 at 15:00 Senna (Senokot) 1 tab DAILY PRN PO CONSTIPATION Last administered on 20:25; Admin Dose 1 TAB; Start 07/30/17 at 17:00 Mineral Oil (Mineral Oil) 30 ml BID PO Last administered on 08/05/17 08:57; Admin Dose 30 ML; Start 07/30/17 at 21:00 Furosemide (Lasix) 20 mg DAILY IV Last administered on 08/06/17 09:17; Admin Dose 20 MG; Start 08/01/17 at 09:00 Lorazepam (Ativan) 0.5 mg Q6H PRN IV ANXIETY Last administered on 08/04/17 08 :52; Admin Dose 0.5 MG; Start 08/01/17 at 19:00 Apixaban (Eliquis) 5 mg BID PO ; Start 08/03/17 at 21:00; Status Future Hold Fentanyl (Sublimaze) 25 mcg Q1H PRN IV PAIN Last administered on 08/06/17 12: 15; Admin Dose 25 MCG; Start 08/04/17 at 00:00 Metoprolol Tartrate (Lopressor) 5 mg Q4H PRN IV ELEVATED HEART RATE; Start at 04:00 Famotidine 20 mg 20 mg BID IV Last administered on 08/06/17 09:23; Admin Dose 20 MG; Start 08/04/17 at 09:00 Sodium Chloride 1,000 ml @ 100 mls/hr Q10H IV Last administered on 08/06/17 07:19; Admin Dose 100 MLS/HR; Start 08/04/17 at 04:30 Alteplase, Recombinant 10 mg/ Sodium Chloride 100 ml @ 10 mls/hr Q10H IV Last administered on 08/06/17 07:20; Admin Dose 10 MLS/HR; Start 08/04/17 at 11:00 Alteplase, Recombinant 10 mg/ Sodium Chloride 100 ml @ 10 mls/hr Q10H IV Last administered on 08/05/17 20:04; Admin Dose 10 MLS/HR; Start 08/04/17 at 11:00 Heparin Sodium (Porcine) 250 ml @ 10 mls/hr Q24H IV Last administered on 08/05 12:05; Admin Dose 7 MLS/HR; Start 08/04/17 at 11:00 Heparin Sodium (Porcine) (Heparin 95017 Units/250 ml) 250 ml @ 10 mls/hr Q24H IV Last administered on 08/05/17 12:05; Admin Dose 7 MLS/HR; Start 08/04/17 at 11:00 Levalbuterol (Xopenex Neb) 0.63 mg Q6H PRN HHN SHORTNESS OF BREATH; Start 08/06 at 14:00 Acetaminophen/ Hydrocodone Bitart ([place] (5/325)) 2 tab Q4H PRN PO PAIN LEVEL 6 -10; Start 08/06/17 at 08:00 LISETTE MEDINA Aug 06, 2017 13:09
[2017-08-06 13:18] LABS: INR 1.43; PROTIME 17.5 Sec (12.2-14.2); PT RATIO 1.4
[2017-08-06 13:20] LABS: CALCIUM 8.6 mg/dl (8.4-10.2); CREATININE 0.62 mg/dl (0.61-1.24); PHOSPHORUS 3.6 mg/dl (2.5-4.9); POTASSIUM 3.8 mmol/L (3.5-5.1)
[2017-08-06 13:47] LABS: PARTIAL THROMBOPLASTIN TIME 91.1 Sec (25.0-35.0)
[2017-08-06] MEDS ORDERED: LEVALBUTEROL (NEB) 0.63 MG/3 ML AMP HHN PRN (14:00)
[2017-08-06] MEDS: HEPARIN 25000 UNITS/D5W 250 ML (VPH) IV SCH ×2 (14:38)
[2017-08-06] MEDS ORDERED: MIDAZOLAM 1 MG/ML 2 ML INJ ONE (15:48)
[2017-08-06] MEDS ORDERED: FENTAnyl 50 MCG/ML VIAL ONE (15:48)
--- NOTE | 2017-08-06 15:52 | HPN ---
Date/Time of Note Date/Time of Note DATE: 08/06/17 TIME: 15:52 Interval H&P Admission Note Pt. seen H&P reviewed: No system changes MATT MCCULLOUGH MD Aug 06, 2017 15:52
--- NOTE | 2017-08-06 15:53 | SIPON ---
Date/Time of Note Date/Time of Note DATE: 08/06/17 TIME: 15:53 Operative Report Preoperative Diagnosis RLE ILIOCAVAL THROMBOSIS, AND DVT RLE FEMPOP STENT GRAFT THROMBOSIS Postoperative Diagnosis same Operation/Procedure Performed LYSIS CHECK REMOVAL OF ARTERIAL LYSIS CATHETER PLACEMENT OF A NEW RLE VENOUS LYSIS CATHETER ILIOCAVAL MECHANICAL THROMBECTOMY Surgeon see signature line grants and contracts assistant NONE Anesthesia: moderate sedation Estimated blood loss: 200 - 250 ml's Transfusion Required none Specimen NONE Grafts/Implants none Complications none MATT MCCULLOUGH MD Aug 06, 2017 15:53
[2017-08-06 19:33] LABS: BASOPHILS % 0.2 % (0.0-2.0); EOSINOPHILS # 0.2 10^3/ul (0.0-0.5); EOSINOPHILS % 2.2 % (0.0-7.0); HEMATOCRIT 29.8 % (42.0-52.0); HEMOGLOBIN 9.2 g/dl (14.0-18.0); LYMPHOCYTES # 1.1 10^3/ul (0.8-2.9); LYMPHOCYTES % 11.9 % (15.0-51.0); MEAN CORPUSCULAR HEMOGLOBIN 26.5 pg (29.0-33.0); MEAN CORPUSCULAR HGB CONC 30.9 g/dl (32.0-37.0); MEAN CORPUSCULAR VOLUME 85.9 fl (82.0-101.0); MEAN PLATELET VOLUME 9.5 fl (7.4-10.4); MONOCYTE # 0.9 10^3/ul (0.3-0.9); MONOCYTES % 9.2 % (0.0-11.0); NEUTROPHIL # 7.2 10^3/ul (1.6-7.5); NEUTROPHILS % 74.9 % (39.0-77.0); PLATELET COUNT 256 10^3/UL (140-415); RED BLOOD COUNT 3.47 10^6/ul (4.70-6.10); RED CELL DISTRIBUTION WIDTH 15.4 % (11.5-14.5); WHITE BLOOD COUNT 9.6 10^3/ul (4.8-10.8)
[2017-08-06 19:47] LABS: INR 1.29; PROTIME 16.2 Sec (12.2-14.2); PT RATIO 1.3
[2017-08-06 19:51] LABS: CALCIUM 8.5 mg/dl (8.4-10.2); CREATININE 0.67 mg/dl (0.61-1.24); MAGNESIUM 1.9 mg/dl (1.7-2.5); PHOSPHORUS 3.5 mg/dl (2.5-4.9)
[2017-08-06] MEDS: GABAPENTIN 300 MG CAP PO SCH (20:30)
[2017-08-06 20:38] LABS: PARTIAL THROMBOPLASTIN TIME 76.1 Sec (25.0-35.0)
[2017-08-06] MEDS: ZOLPIDEM 5 MG TAB PO PRN (21:47)
[2017-08-07] VITALS (24 sets, daily range): BP systolic 89–137; BP diastolic 47–81; PULSE 68–106; RESP 15–36
[2017-08-07 01:18] LABS: BASOPHILS % 0.3 % (0.0-2.0); EOSINOPHILS # 0.2 10^3/ul (0.0-0.5); EOSINOPHILS % 2.2 % (0.0-7.0); HEMATOCRIT 28.6 % (42.0-52.0); HEMOGLOBIN 9.3 g/dl (14.0-18.0); LYMPHOCYTES # 1.1 10^3/ul (0.8-2.9); MEAN CORPUSCULAR HEMOGLOBIN 27.6 pg (29.0-33.0); MEAN CORPUSCULAR HGB CONC 32.5 g/dl (32.0-37.0); MEAN CORPUSCULAR VOLUME 84.9 fl (82.0-101.0); MEAN PLATELET VOLUME 8.7 fl (7.4-10.4); MONOCYTE # 0.8 10^3/ul (0.3-0.9); MONOCYTES % 9.3 % (0.0-11.0); NEUTROPHIL # 6.4 10^3/ul (1.6-7.5); NEUTROPHILS % 73.7 % (39.0-77.0); PLATELET COUNT 225 10^3/UL (140-415); RED BLOOD COUNT 3.37 10^6/ul (4.70-6.10); WHITE BLOOD COUNT 8.7 10^3/ul (4.8-10.8)
[2017-08-07 01:34] LABS: INR 1.41; PROTIME 17.3 Sec (12.2-14.2); PT RATIO 1.4
[2017-08-07 01:35] LABS: CALCIUM 8.5 mg/dl (8.4-10.2); CREATININE 0.66 mg/dl (0.61-1.24); MAGNESIUM 1.9 mg/dl (1.7-2.5); PHOSPHORUS 3.7 mg/dl (2.5-4.9); POTASSIUM 3.9 mmol/L (3.5-5.1)
[2017-08-07 01:40] LABS: PARTIAL THROMBOPLASTIN TIME 116.3 Sec (25.0-35.0)
[2017-08-07] MEDS: FENTAnyl 50 MCG/ML VIAL IV PRN ×5 (02:16→15:32)
[2017-08-07] MEDS: HEPARIN 25000 UNITS/D5W 250 ML (VPH) IV SCH ×3 (04:39→19:27)
[2017-08-07 05:43] LABS: BASOPHILS % 0.5 % (0.0-2.0); EOSINOPHILS # 0.2 10^3/ul (0.0-0.5); EOSINOPHILS % 2.6 % (0.0-7.0); HEMATOCRIT 29.6 % (42.0-52.0); HEMOGLOBIN 9.4 g/dl (14.0-18.0); LYMPHOCYTES # 1.2 10^3/ul (0.8-2.9); LYMPHOCYTES % 14.1 % (15.0-51.0); MEAN CORPUSCULAR HEMOGLOBIN 27.2 pg (29.0-33.0); MEAN CORPUSCULAR HGB CONC 31.8 g/dl (32.0-37.0); MEAN CORPUSCULAR VOLUME 85.5 fl (82.0-101.0); MEAN PLATELET VOLUME 9.6 fl (7.4-10.4); MONOCYTE # 0.8 10^3/ul (0.3-0.9); MONOCYTES % 9.7 % (0.0-11.0); NEUTROPHILS % 71.7 % (39.0-77.0); PLATELET COUNT 241 10^3/UL (140-415); RED BLOOD COUNT 3.46 10^6/ul (4.70-6.10); RED CELL DISTRIBUTION WIDTH 15.4 % (11.5-14.5); WHITE BLOOD COUNT 8.4 10^3/ul (4.8-10.8)
[2017-08-07 06:02] LABS: INR 1.39; PROTIME 17.1 Sec (12.2-14.2); PT RATIO 1.3
[2017-08-07] MEDS: SOD CHLORIDE 0.9% 1,000 ML IV SCH ×2 (06:09→19:01)
[2017-08-07 06:16] LABS: PARTIAL THROMBOPLASTIN TIME 96.2 Sec (25.0-35.0)
[2017-08-07 06:58] LABS: CALCIUM 8.5 mg/dl (8.4-10.2); CREATININE 0.63 mg/dl (0.61-1.24); MAGNESIUM 1.9 mg/dl (1.7-2.5); PHOSPHORUS 3.5 mg/dl (2.5-4.9)
[2017-08-07] MEDS ORDERED: IODIXANOL LOCM 100 ML BTL ONE (07:25)
[2017-08-07] MEDS ORDERED: LIDOCAINE 1% (MDV) 20 ML INJ ONE (07:26)
[2017-08-07] MEDS ORDERED: FENTAnyl 50 MCG/ML VIAL ONE (07:32)
[2017-08-07] MEDS ORDERED: ETOMIDATE 20 MG INJ ONE (07:57)
[2017-08-07] MEDS ORDERED: SUCCINYLCHOLINE CHLORIDE 100 MG/5 ML SYG IV ONE (07:57)
[2017-08-07] MEDS: NS IV SCH (09:00)
[2017-08-07] MEDS: SALMETEROL/FLUTICASONE 250/50 INHA INH SCH ×2 (09:00→20:34)
[2017-08-07] MEDS: DUTASTERIDE 0.5 MG CAP PO SCH (09:00)
[2017-08-07] MEDS: MINERAL OIL 30ML CUP PO SCH ×2 (09:00→20:32)
[2017-08-07] MEDS: ALTEPLASE IV SCH (09:00)
[2017-08-07] MEDS: DOCUSATE SODIUM 100 MG CAP PO SCH ×2 (09:00→20:31)
[2017-08-07] MEDS: ATORVASTATIN 10 MG TAB PO SCH (09:13)
[2017-08-07] MEDS: FUROSEMIDE 20 MG INJ IV SCH (09:13)
[2017-08-07] MEDS: METOPROLOL 25 MG TAB PO SCH ×2 (09:14→20:31)
[2017-08-07] MEDS: FAMOTIDINE 20 MG INJ IV SCH ×2 (09:44→20:40)
--- NOTE | 2017-08-07 11:04 | CONS ---
Date/Time of Note Date/Time of Note DATE: 08/07/17 TIME: 11:01 Assessment/Plan Assessment/Plan Additional Assessment/Plan Assessment and recommendations; 1. 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 Status post multiple declotting procedures. Etiology of hyper coagulable state is unknown. 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 2. Underlying severe emphysema. 3. Calcified right upper lobe nodule. 4. Right upper lobe peripheral lesion, possibly acute pneumonia. Continue current supportive care. Workup of lung lesions can be done on an outpatient basis once the patient's vascular status has stabilized. Consultation Date/Type/Reason Admit Date/Time Jul 21, 2017 at 23:03 Initial Consult Date 08/04/17 Type of Consultation: Pulmonary/critical care Referring Provider: SEBAS LALA MD 24 HR Interval Summary Free Text/Dictation Patient's condition is stable. Remains completely awake and alert. Denies any lower extremity pain. Denies any shortness of breath. General exam; elderly male, awake and alert. Currently in no distress. Exam/Review of Systems Vital Signs Vitals Vital Signs Date Time Temp Pulse Resp B/P Pulse Ox O2 Delivery O2 Flow Rate FiO2 08/07/17 10:00 95 15 124/81 86 Nasal Cannula 08/07/17 09:00 98.3 08/07/17 08:00 2.0 08/05/17 09:32 21 Intake and Output 08/06/17 08/06/17 08/07/17 15:00 23:00 07:00 Intake Total 1068.00 ml 1168.00 ml 1006.0 ml Output Total 1500 ml 405 ml 550 ml Balance -432.00 ml 763.00 ml 456.0 ml Exam HEENT exam; supple neck, no JVD. No lymphadenopathy. Midline trachea. No thyromegaly. Patient does have multiple carious teeth. Chest exam; diminished but clear breath sounds. S1-S2 audible, no murmurs. Regular rhythm. Abdomen exam; soft, nontender. No organomegaly. Bowel sounds audible. Extremity exam; no peripheral edema. Right lower extremity is dressed up in a pressure dressing. INS[employer]OR TE[employer]ORTER exam; no focal deficit. Results Result Diagram: 08/07/17 0509 08/07/17 0509 Results 24 hrs Laboratory Tests Test 08/06/17 12:27 08/06/17 18:02 08/07/17 01:10 08/07/17 05:02 White Blood Count 10.4 9.6 8.7 Red Blood Count 3.49 L 3.47 L 3.37 L Hemoglobin 9.2 L 9.2 L 9.3 L Hematocrit 29.8 L 29.8 L 28.6 L Mean Corpuscular Volume 85.4 85.9 84.9 Mean Corpuscular Hemoglobin 26.4 L 26.5 L 27.6 L Mean Corpuscular Hemoglobin Concent 30.9 L 30.9 L 32.5 Red Cell Distribution Width 15.5 H 15.4 H 15.0 H Platelet Count 255 256 225 Mean Platelet Volume 9.5 9.5 8.7 Neutrophils % 79.0 H 74.9 73.7 Lymphocytes % 9.2 L 11.9 L 13.0 L Monocytes % 8.7 9.2 9.3 Eosinophils % 1.6 2.2 2.2 Basophils % 0.3 0.2 0.3 Nucleated Red Blood Cells % 0.0 0.0 0.0 Neutrophils # 8.2 H 7.2 6.4 Lymphocytes # 1.0 1.1 1.1 Monocytes # 0.9 0.9 0.8 Eosinophils # 0.2 0.2 0.2 Basophils # 0.0 0.0 0.0 Nucleated Red Blood Cells # 0.0 0.0 0.0 Prothrombin Time 17.5 H 16.2 H 17.3 H Prothrombin Time Ratio 1.4 1.3 1.4 INR International Normalized Ratio 1.43 1.29 1.41 Activated Partial Thromboplast Time 91.1 *H 76.1 *H 116.3 *H Fibrinogen 288.0 # 250.0 # 248.0 Sodium Level 138 139 137 Potassium Level 3.8 4.0 3.9 Chloride Level 103 101 103 Carbon Dioxide Level 28 27 28 Anion Gap 11 15 10 # Blood Urea Nitrogen 12 12 12 Creatinine 0.62 0.67 0.66 Glucose Level 102 90 96 Calcium Level 8.6 8.5 8.5 Phosphorus Level 3.6 3.5 3.7 Magnesium Level 2.0 1.9 1.9 Lab Scanned Report BLOOD TRANSFUSION Test 08/07/17 05:09 White Blood Count 8.4 Red Blood Count 3.46 L Hemoglobin 9.4 L Hematocrit 29.6 L Mean Corpuscular Volume 85.5 Mean Corpuscular Hemoglobin 27.2 L Mean Corpuscular Hemoglobin Concent 31.8 L Red Cell Distribution Width 15.4 H Platelet Count 241 Mean Platelet Volume 9.6 Neutrophils % 71.7 Lymphocytes % 14.1 L Monocytes % 9.7 Eosinophils % 2.6 Basophils % 0.5 Nucleated Red Blood Cells % 0.0 Neutrophils # 6.0 Lymphocytes # 1.2 Monocytes # 0.8 Eosinophils # 0.2 Basophils # 0.0 Nucleated Red Blood Cells # 0.0 Prothrombin Time 17.1 H Prothrombin Time Ratio 1.3 INR International Normalized Ratio 1.39 Activated Partial Thromboplast Time 96.2 *H Fibrinogen 266.0 Sodium Level 138 Potassium Level 4.0 Chloride Level 106 Carbon Dioxide Level 26 Anion Gap 10 Blood Urea Nitrogen 11 Creatinine 0.63 Glucose Level 92 Calcium Level 8.5 Phosphorus Level 3.5 Magnesium Level 1.9 Medications Medications Current Medications Dutasteride (Avodart) 0.5 mg DAILY PO Last administered on 08/06/17 09:11; Admin Dose 0.5 MG; Start 07/22/17 at 09:00 Gabapentin (Neurontin) 300 mg QHS PO Last administered on 08/06/17 20:30; Admin Dose 300 MG; Start 07/22/17 at 21:00 Salmeterol Xinafoate/ Fluticasone (Advair 250/50 Diskus) 1 inh BID INH Last administered on 08/06/17 20:30; Admin Dose 1 INH; Start 07/22/17 at 09:00 Atorvastatin Calcium (Lipitor) 10 mg QAM PO Last administered on 08/07/17 09: 13; Admin Dose 10 MG; Start 07/22/17 at 09:00 Acetaminophen (Tylenol Tab) 650 mg QID PRN PO PAIN LEVEL 1-5; Start 07/21/17 at 23:30 Ondansetron HCl (Zofran Inj) 4 mg Q6H PRN IV NAUSEA AND/OR VOMITING Last administered on 08/04/17 02:15; Admin Dose 4 MG; Start 07/21/17 at 23:30 Acetaminophen/ Hydrocodone Bitart ([place] (5/325)) 1 tab Q4H PRN PO PAIN LEVEL 4 -7 Last administered on 08/03/17 16:41; Admin Dose 1 TAB; Start 07/21/17 at 23:30 Famotidine (Pepcid) 20 mg BID PO Last administered on 08/03/17 09:37; Admin Dose 20 MG; Start 07/26/17 at 21:00; Status Future Hold Metoprolol Tartrate (Lopressor) 12.5 mg BID PO Last administered on 08/07/17 09:14; Admin Dose 12.5 MG; Start 07/27/17 at 21:00 Docusate Sodium (Colace) 100 mg BID PO Last administered on 08/06/17 20:30; Admin Dose 100 MG; Start 07/28/17 at 21:00 Polyethylene Glycol (Miralax) 17 gm PRN PRN PO CONSTIPATION Last administered on 07/31/17 20:26; Admin Dose 17 GM; Start 07/28/17 at 15:00 Senna (Senokot) 1 tab DAILY PRN PO CONSTIPATION Last administered on 20:25; Admin Dose 1 TAB; Start 07/30/17 at 17:00 Mineral Oil (Mineral Oil) 30 ml BID PO Last administered on 08/05/17 08:57; Admin Dose 30 ML; Start 07/30/17 at 21:00 Furosemide (Lasix) 20 mg DAILY IV Last administered on 08/07/17 09:13; Admin Dose 20 MG; Start 08/01/17 at 09:00 Lorazepam (Ativan) 0.5 mg Q6H PRN IV ANXIETY Last administered on 08/04/17 08 :52; Admin Dose 0.5 MG; Start 08/01/17 at 19:00 Apixaban (Eliquis) 5 mg BID PO ; Start 08/03/17 at 21:00; Status Future Hold Fentanyl (Sublimaze) 25 mcg Q1H PRN IV PAIN Last administered on 08/07/17 10: 53; Admin Dose 25 MCG; Start 08/04/17 at 00:00 Metoprolol Tartrate (Lopressor) 5 mg Q4H PRN IV ELEVATED HEART RATE; Start at 04:00 Famotidine 20 mg 20 mg BID IV Last administered on 08/07/17 09:44; Admin Dose 20 MG; Start 08/04/17 at 09:00 Sodium Chloride 1,000 ml @ 100 mls/hr Q10H IV Last administered on 08/07/17 06:09; Admin Dose 100 MLS/HR; Start 08/04/17 at 04:30 Alteplase, Recombinant 10 mg/ Sodium Chloride 100 ml @ 10 mls/hr Q10H IV Last administered on 08/06/17 23:27; Admin Dose 10 MLS/HR; Start 08/04/17 at 11:00 Alteplase, Recombinant 10 mg/ Sodium Chloride 100 ml @ 10 mls/hr Q10H IV Last administered on 08/06/17 14:36; Admin Dose 10 MLS/HR; Start 08/04/17 at 11:00 Heparin Sodium (Porcine) 250 ml @ 10 mls/hr Q24H IV Last administered on 04:39; Admin Dose 17 MLS/HR; Start 08/04/17 at 11:00 Heparin Sodium (Porcine) (Heparin [id number] Units/250 ml) 250 ml @ 10 mls/hr Q24H IV Last administered on 08/06/17 14:38; Admin Dose 9.25 MLS/HR; Start at 11:00 Levalbuterol (Xopenex Neb) 0.63 mg Q6H PRN HHN SHORTNESS OF BREATH; Start 08/06 at 14:00 Acetaminophen/ Hydrocodone Bitart ([place] (5/325)) 2 tab Q4H PRN PO PAIN LEVEL 6 -10; Start 08/06/17 at 08:00 RICH RUVALCABA Aug 07, 2017 11:04
--- NOTE | 2017-08-07 11:22 | CONS ---
Date/Time of Note Date/Time of Note DATE: 08/07/17 TIME: 11:19 Assessment/Plan Assessment/Plan Chief Complaint/Hosp Course #RLE Lung mass with hilar adenopathy -given CT findings there is increased concern for lung cancer, especially given his smoking history -the CT findings were discussed in detail with the patient who understands he will need a biopsy to rule out cancer -at this time, patient has changed his mind and does not want to pursue a biopsy in the hospital. -as explained to the patient we can perform an out patient PET CT and biopsy when he is comfortable -although this mass has been there for years, the hilar adenopathy makes me concerned for underlying cancer. patient state he understands my concern but does not want to pursue biopsy at this time #Bilateral lower extremity deep vein thrombosis-pt now has recurrent arterial and venous thrombosis -pt is s/p lysis check and thrombectomy -TPA has been turned off -continue Heparin gtt for at least a few days before transitioning to Eliquis -would start Eliquis 10mg BID x 7 days prior to transitioning to 5 mg BID -Status post IVC filter placement -hypercoag workup negative. 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 Pt likely having thromboemboli form this aneurism -continue Plavix Problems: Consultation Date/Type/Reason Admit Date/Time Jul 21, 2017 at 23:03 Initial Consult Date 07/23/17 Type of Consultation: hematology Reason for Consultation hypercoagulability Referring Provider: SEBAS LALA MD 24 HR Interval Summary Free Text/Dictation pt just returned from the director of cardiac cath lab. TPA has been turned off. continues on heparin gtt Exam/Review of Systems Vital Signs Vitals Vital Signs Date Time Temp Pulse Resp B/P Pulse Ox O2 Delivery O2 Flow Rate FiO2 08/07/17 10:00 95 15 124/81 86 Nasal Cannula 08/07/17 09:00 98.3 08/07/17 08:00 2.0 08/05/17 09:32 21 Intake and Output 08/06/17 08/06/17 08/07/17 15:00 23:00 07:00 Intake Total 1068.00 ml 1168.00 ml 1006.0 ml Output Total 1500 ml 405 ml 550 ml Balance -432.00 ml 763.00 ml 456.0 ml Exam Constitutional: alert, frail, oriented Psych: no complaints Head: normocephalic Eyes: nl conjunctiva ENMT: nl external ears & nose Neck: non-tender, supple Respiratory: clear to auscultation Cardiovascular: regular rate and rhythm Gastrointestinal: soft Extremities: other (bilater LE with chronic venous stasis changes) Results Result Diagram: 08/07/17 0509 08/07/17 0509 Results 24 hrs Laboratory Tests Test 08/06/17 12:27 08/06/17 18:02 08/07/17 01:10 08/07/17 05:02 White Blood Count 10.4 9.6 8.7 Red Blood Count 3.49 L 3.47 L 3.37 L Hemoglobin 9.2 L 9.2 L 9.3 L Hematocrit 29.8 L 29.8 L 28.6 L Mean Corpuscular Volume 85.4 85.9 84.9 Mean Corpuscular Hemoglobin 26.4 L 26.5 L 27.6 L Mean Corpuscular Hemoglobin Concent 30.9 L 30.9 L 32.5 Red Cell Distribution Width 15.5 H 15.4 H 15.0 H Platelet Count 255 256 225 Mean Platelet Volume 9.5 9.5 8.7 Neutrophils % 79.0 H 74.9 73.7 Lymphocytes % 9.2 L 11.9 L 13.0 L Monocytes % 8.7 9.2 9.3 Eosinophils % 1.6 2.2 2.2 Basophils % 0.3 0.2 0.3 Nucleated Red Blood Cells % 0.0 0.0 0.0 Neutrophils # 8.2 H 7.2 6.4 Lymphocytes # 1.0 1.1 1.1 Monocytes # 0.9 0.9 0.8 Eosinophils # 0.2 0.2 0.2 Basophils # 0.0 0.0 0.0 Nucleated Red Blood Cells # 0.0 0.0 0.0 Prothrombin Time 17.5 H 16.2 H 17.3 H Prothrombin Time Ratio 1.4 1.3 1.4 INR International Normalized Ratio 1.43 1.29 1.41 Activated Partial Thromboplast Time 91.1 *H 76.1 *H 116.3 *H Fibrinogen 288.0 # 250.0 # 248.0 Sodium Level 138 139 137 Potassium Level 3.8 4.0 3.9 Chloride Level 103 101 103 Carbon Dioxide Level 28 27 28 Anion Gap 11 15 10 # Blood Urea Nitrogen 12 12 12 Creatinine 0.62 0.67 0.66 Glucose Level 102 90 96 Calcium Level 8.6 8.5 8.5 Phosphorus Level 3.6 3.5 3.7 Magnesium Level 2.0 1.9 1.9 Lab Scanned Report BLOOD TRANSFUSION Test 08/07/17 05:09 White Blood Count 8.4 Red Blood Count 3.46 L Hemoglobin 9.4 L Hematocrit 29.6 L Mean Corpuscular Volume 85.5 Mean Corpuscular Hemoglobin 27.2 L Mean Corpuscular Hemoglobin Concent 31.8 L Red Cell Distribution Width 15.4 H Platelet Count 241 Mean Platelet Volume 9.6 Neutrophils % 71.7 Lymphocytes % 14.1 L Monocytes % 9.7 Eosinophils % 2.6 Basophils % 0.5 Nucleated Red Blood Cells % 0.0 Neutrophils # 6.0 Lymphocytes # 1.2 Monocytes # 0.8 Eosinophils # 0.2 Basophils # 0.0 Nucleated Red Blood Cells # 0.0 Prothrombin Time 17.1 H Prothrombin Time Ratio 1.3 INR International Normalized Ratio 1.39 Activated Partial Thromboplast Time 96.2 *H Fibrinogen 266.0 Sodium Level 138 Potassium Level 4.0 Chloride Level 106 Carbon Dioxide Level 26 Anion Gap 10 Blood Urea Nitrogen 11 Creatinine 0.63 Glucose Level 92 Calcium Level 8.5 Phosphorus Level 3.5 Magnesium Level 1.9 Medications Medications Current Medications Dutasteride (Avodart) 0.5 mg DAILY PO Last administered on 08/06/17 09:11; Admin Dose 0.5 MG; Start 07/22/17 at 09:00 Gabapentin (Neurontin) 300 mg QHS PO Last administered on 08/06/17 20:30; Admin Dose 300 MG; Start 07/22/17 at 21:00 Salmeterol Xinafoate/ Fluticasone (Advair 250/50 Diskus) 1 inh BID INH Last administered on 08/06/17 20:30; Admin Dose 1 INH; Start 07/22/17 at 09:00 Atorvastatin Calcium (Lipitor) 10 mg QAM PO Last administered on 08/07/17 09: 13; Admin Dose 10 MG; Start 07/22/17 at 09:00 Acetaminophen (Tylenol Tab) 650 mg QID PRN PO PAIN LEVEL 1-5; Start 07/21/17 at 23:30 Ondansetron HCl (Zofran Inj) 4 mg Q6H PRN IV NAUSEA AND/OR VOMITING Last administered on 08/04/17 02:15; Admin Dose 4 MG; Start 07/21/17 at 23:30 Acetaminophen/ Hydrocodone Bitart ([place] (5/325)) 1 tab Q4H PRN PO PAIN LEVEL 4 -7 Last administered on 08/03/17 16:41; Admin Dose 1 TAB; Start 07/21/17 at 23:30 Famotidine (Pepcid) 20 mg BID PO Last administered on 08/03/17 09:37; Admin Dose 20 MG; Start 07/26/17 at 21:00; Status Future Hold Metoprolol Tartrate (Lopressor) 12.5 mg BID PO Last administered on 08/07/17 09:14; Admin Dose 12.5 MG; Start 07/27/17 at 21:00 Docusate Sodium (Colace) 100 mg BID PO Last administered on 08/06/17 20:30; Admin Dose 100 MG; Start 07/28/17 at 21:00 Polyethylene Glycol (Miralax) 17 gm PRN PRN PO CONSTIPATION Last administered on 07/31/17 20:26; Admin Dose 17 GM; Start 07/28/17 at 15:00 Senna (Senokot) 1 tab DAILY PRN PO CONSTIPATION Last administered on 20:25; Admin Dose 1 TAB; Start 07/30/17 at 17:00 Mineral Oil (Mineral Oil) 30 ml BID PO Last administered on 08/05/17 08:57; Admin Dose 30 ML; Start 07/30/17 at 21:00 Furosemide (Lasix) 20 mg DAILY IV Last administered on 08/07/17 09:13; Admin Dose 20 MG; Start 08/01/17 at 09:00 Lorazepam (Ativan) 0.5 mg Q6H PRN IV ANXIETY Last administered on 08/04/17 08 :52; Admin Dose 0.5 MG; Start 08/01/17 at 19:00 Apixaban (Eliquis) 5 mg BID PO ; Start 08/03/17 at 21:00; Status Future Hold Fentanyl (Sublimaze) 25 mcg Q1H PRN IV PAIN Last administered on 08/07/17 10: 53; Admin Dose 25 MCG; Start 08/04/17 at 00:00 Metoprolol Tartrate (Lopressor) 5 mg Q4H PRN IV ELEVATED HEART RATE; Start at 04:00 Famotidine 20 mg 20 mg BID IV Last administered on 08/07/17 09:44; Admin Dose 20 MG; Start 08/04/17 at 09:00 Sodium Chloride 1,000 ml @ 100 mls/hr Q10H IV Last administered on 08/07/17 06:09; Admin Dose 100 MLS/HR; Start 08/04/17 at 04:30 Alteplase, Recombinant 10 mg/ Sodium Chloride 100 ml @ 10 mls/hr Q10H IV Last administered on 08/06/17 23:27; Admin Dose 10 MLS/HR; Start 08/04/17 at 11:00 Alteplase, Recombinant 10 mg/ Sodium Chloride 100 ml @ 10 mls/hr Q10H IV Last administered on 08/06/17 14:36; Admin Dose 10 MLS/HR; Start 08/04/17 at 11:00 Heparin Sodium (Porcine) 250 ml @ 10 mls/hr Q24H IV Last administered on 04:39; Admin Dose 17 MLS/HR; Start 08/04/17 at 11:00 Heparin Sodium (Porcine) (Heparin 06815 Units/250 ml) 250 ml @ 10 mls/hr Q24H IV Last administered on 08/06/17 14:38; Admin Dose 9.25 MLS/HR; Start at 11:00 Levalbuterol (Xopenex Neb) 0.63 mg Q6H PRN HHN SHORTNESS OF BREATH; Start 08/06 at 14:00 Acetaminophen/ Hydrocodone Bitart ([place] (5/325)) 2 tab Q4H PRN PO PAIN LEVEL 6 -10; Start 08/06/17 at 08:00 AMARA MCINTYRE M.D. Aug 07, 2017 11:22
--- NOTE | 2017-08-07 11:27 | SIPON ---
Date/Time of Note Date/Time of Note DATE: 08/07/17 TIME: 11:26 Operative Report Preoperative Diagnosis RLE ILIOCAVAL THROMBOSIS, AND DVT RLE FEMPOP STENT GRAFT THROMBOSIS Postoperative Diagnosis same Operation/Procedure Performed LYSIS CHECK REMOVAL OF VENOUS LYSIS CATHETER ILIOCAVAL MECHANICAL THROMBECTOMY Surgeon see signature line dam tender assistant NONE Anesthesia: moderate sedation Estimated blood loss: 10 - 50 ml's Transfusion Required none Specimen NONE Grafts/Implants none Complications none MATT MCCULLOUGH MD Aug 07, 2017 11:27
--- NOTE | 2017-08-07 11:33 | CONS ---
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 , s/p thrombectomy 07/23/2017 - H/o DVT s/p IVC filter - RUL mass-like lesion concerning for malignancy/Pulmonary nodule with possible PNA per pulmonary - declining biopsy - Bilateral adrenal nodules concerning for malignancy per CT - COPD/emphysema - Hypercoagulation - Dyslipidemia - lung lesions Recommendations: - monitor closely off antibiotics - trend WBC - pending: procalcitonin (ordered on 08/01/2017) - start probiotics - check cocci, crypto Problems: Consultation Date/Type/Reason Admit Date/Time Jul 21, 2017 at 23:03 Initial Consult Date 07/23/17 Type of Consultation: id Referring Provider: SEBAS LALA MD Exam/Review of Systems Vital Signs Vitals Vital Signs Date Time Temp Pulse Resp B/P Pulse Ox O2 Delivery O2 Flow Rate FiO2 08/07/17 10:00 95 15 124/81 86 Nasal Cannula 08/07/17 09:00 98.3 08/07/17 08:00 2.0 08/05/17 09:32 21 Intake and Output 08/06/17 08/06/17 08/07/17 15:00 23:00 07:00 Intake Total 1068.00 ml 1168.00 ml 1006.0 ml Output Total 1500 ml 405 ml 550 ml Balance -432.00 ml 763.00 ml 456.0 ml Exam Constitutional: alert, oriented, well developed Psych: nl mood/affect, no complaints Head: atraumatic, normocephalic Eyes: EOMI, PERRL, nl conjunctiva, nl lids, nl sclera ENMT: nl external ears & nose, nl lips & teeth, nl nasal mucosa & septum Respiratory: clear to auscultation, normal air movement Cardiovascular: nl pulses, regular rate and rhythm Extremities: other (leg bandaged) Results Result Diagram: 08/07/17 0509 08/07/17 0509 Results 24 hrs Laboratory Tests Test 08/06/17 12:27 08/06/17 18:02 08/07/17 01:10 08/07/17 05:02 White Blood Count 10.4 9.6 8.7 Red Blood Count 3.49 L 3.47 L 3.37 L Hemoglobin 9.2 L 9.2 L 9.3 L Hematocrit 29.8 L 29.8 L 28.6 L Mean Corpuscular Volume 85.4 85.9 84.9 Mean Corpuscular Hemoglobin 26.4 L 26.5 L 27.6 L Mean Corpuscular Hemoglobin Concent 30.9 L 30.9 L 32.5 Red Cell Distribution Width 15.5 H 15.4 H 15.0 H Platelet Count 255 256 225 Mean Platelet Volume 9.5 9.5 8.7 Neutrophils % 79.0 H 74.9 73.7 Lymphocytes % 9.2 L 11.9 L 13.0 L Monocytes % 8.7 9.2 9.3 Eosinophils % 1.6 2.2 2.2 Basophils % 0.3 0.2 0.3 Nucleated Red Blood Cells % 0.0 0.0 0.0 Neutrophils # 8.2 H 7.2 6.4 Lymphocytes # 1.0 1.1 1.1 Monocytes # 0.9 0.9 0.8 Eosinophils # 0.2 0.2 0.2 Basophils # 0.0 0.0 0.0 Nucleated Red Blood Cells # 0.0 0.0 0.0 Prothrombin Time 17.5 H 16.2 H 17.3 H Prothrombin Time Ratio 1.4 1.3 1.4 INR International Normalized Ratio 1.43 1.29 1.41 Activated Partial Thromboplast Time 91.1 *H 76.1 *H 116.3 *H Fibrinogen 288.0 # 250.0 # 248.0 Sodium Level 138 139 137 Potassium Level 3.8 4.0 3.9 Chloride Level 103 101 103 Carbon Dioxide Level 28 27 28 Anion Gap 11 15 10 # Blood Urea Nitrogen 12 12 12 Creatinine 0.62 0.67 0.66 Glucose Level 102 90 96 Calcium Level 8.6 8.5 8.5 Phosphorus Level 3.6 3.5 3.7 Magnesium Level 2.0 1.9 1.9 Lab Scanned Report BLOOD TRANSFUSION Test 08/07/17 05:09 White Blood Count 8.4 Red Blood Count 3.46 L Hemoglobin 9.4 L Hematocrit 29.6 L Mean Corpuscular Volume 85.5 Mean Corpuscular Hemoglobin 27.2 L Mean Corpuscular Hemoglobin Concent 31.8 L Red Cell Distribution Width 15.4 H Platelet Count 241 Mean Platelet Volume 9.6 Neutrophils % 71.7 Lymphocytes % 14.1 L Monocytes % 9.7 Eosinophils % 2.6 Basophils % 0.5 Nucleated Red Blood Cells % 0.0 Neutrophils # 6.0 Lymphocytes # 1.2 Monocytes # 0.8 Eosinophils # 0.2 Basophils # 0.0 Nucleated Red Blood Cells # 0.0 Prothrombin Time 17.1 H Prothrombin Time Ratio 1.3 INR International Normalized Ratio 1.39 Activated Partial Thromboplast Time 96.2 *H Fibrinogen 266.0 Sodium Level 138 Potassium Level 4.0 Chloride Level 106 Carbon Dioxide Level 26 Anion Gap 10 Blood Urea Nitrogen 11 Creatinine 0.63 Glucose Level 92 Calcium Level 8.5 Phosphorus Level 3.5 Magnesium Level 1.9 Medications Medications Current Medications Dutasteride (Avodart) 0.5 mg DAILY PO Last administered on 08/06/17 09:11; Admin Dose 0.5 MG; Start 07/22/17 at 09:00 Gabapentin (Neurontin) 300 mg QHS PO Last administered on 08/06/17 20:30; Admin Dose 300 MG; Start 07/22/17 at 21:00 Salmeterol Xinafoate/ Fluticasone (Advair 250/50 Diskus) 1 inh BID INH Last administered on 08/06/17 20:30; Admin Dose 1 INH; Start 07/22/17 at 09:00 Atorvastatin Calcium (Lipitor) 10 mg QAM PO Last administered on 08/07/17 09: 13; Admin Dose 10 MG; Start 07/22/17 at 09:00 Acetaminophen (Tylenol Tab) 650 mg QID PRN PO PAIN LEVEL 1-5; Start 07/21/17 at 23:30 Ondansetron HCl (Zofran Inj) 4 mg Q6H PRN IV NAUSEA AND/OR VOMITING Last administered on 08/04/17 02:15; Admin Dose 4 MG; Start 07/21/17 at 23:30 Acetaminophen/ Hydrocodone Bitart ([place] (5/325)) 1 tab Q4H PRN PO PAIN LEVEL 4 -7 Last administered on 08/03/17 16:41; Admin Dose 1 TAB; Start 07/21/17 at 23:30 Famotidine (Pepcid) 20 mg BID PO Last administered on 08/03/17 09:37; Admin Dose 20 MG; Start 07/26/17 at 21:00; Status Future Hold Metoprolol Tartrate (Lopressor) 12.5 mg BID PO Last administered on 08/07/17 09:14; Admin Dose 12.5 MG; Start 07/27/17 at 21:00 Docusate Sodium (Colace) 100 mg BID PO Last administered on 08/06/17 20:30; Admin Dose 100 MG; Start 07/28/17 at 21:00 Polyethylene Glycol (Miralax) 17 gm PRN PRN PO CONSTIPATION Last administered on 07/31/17 20:26; Admin Dose 17 GM; Start 07/28/17 at 15:00 Senna (Senokot) 1 tab DAILY PRN PO CONSTIPATION Last administered on 20:25; Admin Dose 1 TAB; Start 07/30/17 at 17:00 Mineral Oil (Mineral Oil) 30 ml BID PO Last administered on 08/05/17 08:57; Admin Dose 30 ML; Start 07/30/17 at 21:00 Furosemide (Lasix) 20 mg DAILY IV Last administered on 08/07/17 09:13; Admin Dose 20 MG; Start 08/01/17 at 09:00 Lorazepam (Ativan) 0.5 mg Q6H PRN IV ANXIETY Last administered on 08/04/17 08 :52; Admin Dose 0.5 MG; Start 08/01/17 at 19:00 Apixaban (Eliquis) 5 mg BID PO ; Start 08/03/17 at 21:00; Status Future Hold Fentanyl (Sublimaze) 25 mcg Q1H PRN IV PAIN Last administered on 08/07/17 10: 53; Admin Dose 25 MCG; Start 08/04/17 at 00:00 Metoprolol Tartrate (Lopressor) 5 mg Q4H PRN IV ELEVATED HEART RATE; Start at 04:00 Famotidine 20 mg 20 mg BID IV Last administered on 08/07/17 09:44; Admin Dose 20 MG; Start 08/04/17 at 09:00 Sodium Chloride 1,000 ml @ 100 mls/hr Q10H IV Last administered on 08/07/17 06:09; Admin Dose 100 MLS/HR; Start 08/04/17 at 04:30 Alteplase, Recombinant 10 mg/ Sodium Chloride 100 ml @ 10 mls/hr Q10H IV Last administered on 08/06/17 23:27; Admin Dose 10 MLS/HR; Start 08/04/17 at 11:00 Alteplase, Recombinant 10 mg/ Sodium Chloride 100 ml @ 10 mls/hr Q10H IV Last administered on 08/06/17 14:36; Admin Dose 10 MLS/HR; Start 08/04/17 at 11:00 Heparin Sodium (Porcine) 250 ml @ 10 mls/hr Q24H IV Last administered on 04:39; Admin Dose 17 MLS/HR; Start 08/04/17 at 11:00 Heparin Sodium (Porcine) (Heparin 39239 Units/250 ml) 250 ml @ 10 mls/hr Q24H IV Last administered on 08/06/17 14:38; Admin Dose 9.25 MLS/HR; Start at 11:00 Levalbuterol (Xopenex Neb) 0.63 mg Q6H PRN HHN SHORTNESS OF BREATH; Start 08/06 at 14:00 Acetaminophen/ Hydrocodone Bitart ([place] (5/325)) 2 tab Q4H PRN PO PAIN LEVEL 6 -10; Start 08/06/17 at 08:00 DESIREE FERGUSON MD Aug 07, 2017 11:33
--- NOTE | 2017-08-07 11:46 | CONS ---
Date/Time of Note Date/Time of Note DATE: 08/07/17 TIME: 11:42 Assessment/Plan Assessment/Plan Chief Complaint/Hosp Course IMPRESSION: 1. Preoperative evaluation prior to possible surgical vascular intervention.- negative trop x3 2. Hypertension. 3. Dyslipidemia. 4. Abnormal electrocardiogram with nonspecific ST and T-wave abnormalities. 5. Left lower extremity deep venous thrombosis status post inferior vena cava filter. Now with recurrent LE thrombosis requiring rep-eat lysis/thrombectomy and placement of perfusion catheter 6. Chronic obstructive pulmonary disease. 7. 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 Tachycardia-? S Tach recurrent after recurrent thrombosis requiring repeat thromobolysis/thrombectomy-Now improved 9. Lung mass on CT Recc: -Back in ICU. Will follow HR closely on tele monitoing -Continue heparin -Continue statin -Follow volume status closely and continue gentle lasix diuresis -Continue low dose BB as tolerated -Follow LE exam closely with ongoing vascular surgery treatment and evaluation Problems: Consultation Date/Type/Reason Admit Date/Time Jul 21, 2017 at 23:03 Initial Consult Date 07/23/17 Type of Consultation: cardiology Reason for Consultation HTN/CHF Referring Provider: SEBAS LALA MD Exam/Review of Systems Vital Signs Vitals Vital Signs Date Time Temp Pulse Resp B/P Pulse Ox O2 Delivery O2 Flow Rate FiO2 08/07/17 10:00 95 15 124/81 86 Nasal Cannula 08/07/17 09:00 98.3 08/07/17 08:00 2.0 08/05/17 09:32 21 Intake and Output 08/06/17 08/06/17 08/07/17 15:00 23:00 07:00 Intake Total 1068.00 ml 1168.00 ml 1006.0 ml Output Total 1500 ml 405 ml 550 ml Balance -432.00 ml 763.00 ml 456.0 ml Exam Review of Systems: CONSTITUTIONAL: No fevers, chills. PULMONARY: No sob CARDIOVASCULAR: No chest pain/palpitations GASTROINTESTINAL: No nausea/vomiting. GENITOURINARY: No hematuria/dysuria. MUSCULOSKELETAL: mild pain in legs PSYCHIATRIC: The patient denies depression. NEUROLOGIC: No weakness Constitutional: alert Psych: no complaints Head: normocephalic ENMT: mucosa pink and moist Neck: jvd (9 cm water), supple Respiratory: diminished breath sounds (at bases/B) Cardiovascular: regular rate and rhythm Gastrointestinal: non-tender, soft Musculoskeletal: muscle tone (normal) Extremities: pitting pedal edema (Bilateral R>L RLE wrapped) Results Result Diagram: 08/07/17 0509 08/07/17 0509 Results 24 hrs Laboratory Tests Test 08/06/17 12:27 08/06/17 18:02 08/07/17 01:10 08/07/17 05:02 White Blood Count 10.4 9.6 8.7 Red Blood Count 3.49 L 3.47 L 3.37 L Hemoglobin 9.2 L 9.2 L 9.3 L Hematocrit 29.8 L 29.8 L 28.6 L Mean Corpuscular Volume 85.4 85.9 84.9 Mean Corpuscular Hemoglobin 26.4 L 26.5 L 27.6 L Mean Corpuscular Hemoglobin Concent 30.9 L 30.9 L 32.5 Red Cell Distribution Width 15.5 H 15.4 H 15.0 H Platelet Count 255 256 225 Mean Platelet Volume 9.5 9.5 8.7 Neutrophils % 79.0 H 74.9 73.7 Lymphocytes % 9.2 L 11.9 L 13.0 L Monocytes % 8.7 9.2 9.3 Eosinophils % 1.6 2.2 2.2 Basophils % 0.3 0.2 0.3 Nucleated Red Blood Cells % 0.0 0.0 0.0 Neutrophils # 8.2 H 7.2 6.4 Lymphocytes # 1.0 1.1 1.1 Monocytes # 0.9 0.9 0.8 Eosinophils # 0.2 0.2 0.2 Basophils # 0.0 0.0 0.0 Nucleated Red Blood Cells # 0.0 0.0 0.0 Prothrombin Time 17.5 H 16.2 H 17.3 H Prothrombin Time Ratio 1.4 1.3 1.4 INR International Normalized Ratio 1.43 1.29 1.41 Activated Partial Thromboplast Time 91.1 *H 76.1 *H 116.3 *H Fibrinogen 288.0 # 250.0 # 248.0 Sodium Level 138 139 137 Potassium Level 3.8 4.0 3.9 Chloride Level 103 101 103 Carbon Dioxide Level 28 27 28 Anion Gap 11 15 10 # Blood Urea Nitrogen 12 12 12 Creatinine 0.62 0.67 0.66 Glucose Level 102 90 96 Calcium Level 8.6 8.5 8.5 Phosphorus Level 3.6 3.5 3.7 Magnesium Level 2.0 1.9 1.9 Lab Scanned Report BLOOD TRANSFUSION Test 08/07/17 05:09 White Blood Count 8.4 Red Blood Count 3.46 L Hemoglobin 9.4 L Hematocrit 29.6 L Mean Corpuscular Volume 85.5 Mean Corpuscular Hemoglobin 27.2 L Mean Corpuscular Hemoglobin Concent 31.8 L Red Cell Distribution Width 15.4 H Platelet Count 241 Mean Platelet Volume 9.6 Neutrophils % 71.7 Lymphocytes % 14.1 L Monocytes % 9.7 Eosinophils % 2.6 Basophils % 0.5 Nucleated Red Blood Cells % 0.0 Neutrophils # 6.0 Lymphocytes # 1.2 Monocytes # 0.8 Eosinophils # 0.2 Basophils # 0.0 Nucleated Red Blood Cells # 0.0 Prothrombin Time 17.1 H Prothrombin Time Ratio 1.3 INR International Normalized Ratio 1.39 Activated Partial Thromboplast Time 96.2 *H Fibrinogen 266.0 Sodium Level 138 Potassium Level 4.0 Chloride Level 106 Carbon Dioxide Level 26 Anion Gap 10 Blood Urea Nitrogen 11 Creatinine 0.63 Glucose Level 92 Calcium Level 8.5 Phosphorus Level 3.5 Magnesium Level 1.9 Medications Medications Current Medications Dutasteride (Avodart) 0.5 mg DAILY PO Last administered on 08/06/17 09:11; Admin Dose 0.5 MG; Start 07/22/17 at 09:00 Gabapentin (Neurontin) 300 mg QHS PO Last administered on 08/06/17 20:30; Admin Dose 300 MG; Start 07/22/17 at 21:00 Salmeterol Xinafoate/ Fluticasone (Advair 250/50 Diskus) 1 inh BID INH Last administered on 08/06/17 20:30; Admin Dose 1 INH; Start 07/22/17 at 09:00 Atorvastatin Calcium (Lipitor) 10 mg QAM PO Last administered on 08/07/17 09: 13; Admin Dose 10 MG; Start 07/22/17 at 09:00 Acetaminophen (Tylenol Tab) 650 mg QID PRN PO PAIN LEVEL 1-5; Start 07/21/17 at 23:30 Ondansetron HCl (Zofran Inj) 4 mg Q6H PRN IV NAUSEA AND/OR VOMITING Last administered on 08/04/17 02:15; Admin Dose 4 MG; Start 07/21/17 at 23:30 Acetaminophen/ Hydrocodone Bitart (Clio (5/325)) 1 tab Q4H PRN PO PAIN LEVEL 4 -7 Last administered on 08/03/17 16:41; Admin Dose 1 TAB; Start 07/21/17 at 23:30 Famotidine (Pepcid) 20 mg BID PO Last administered on 08/03/17 09:37; Admin Dose 20 MG; Start 07/26/17 at 21:00; Status Future Hold Metoprolol Tartrate (Lopressor) 12.5 mg BID PO Last administered on 08/07/17 09:14; Admin Dose 12.5 MG; Start 07/27/17 at 21:00 Docusate Sodium (Colace) 100 mg BID PO Last administered on 08/06/17 20:30; Admin Dose 100 MG; Start 07/28/17 at 21:00 Polyethylene Glycol (Miralax) 17 gm PRN PRN PO CONSTIPATION Last administered on 07/31/17 20:26; Admin Dose 17 GM; Start 07/28/17 at 15:00 Senna (Senokot) 1 tab DAILY PRN PO CONSTIPATION Last administered on 20:25; Admin Dose 1 TAB; Start 07/30/17 at 17:00 Mineral Oil (Mineral Oil) 30 ml BID PO Last administered on 08/05/17 08:57; Admin Dose 30 ML; Start 07/30/17 at 21:00 Furosemide (Lasix) 20 mg DAILY IV Last administered on 08/07/17 09:13; Admin Dose 20 MG; Start 08/01/17 at 09:00 Lorazepam (Ativan) 0.5 mg Q6H PRN IV ANXIETY Last administered on 08/04/17 08 :52; Admin Dose 0.5 MG; Start 08/01/17 at 19:00 Apixaban (Eliquis) 5 mg BID PO ; Start 08/03/17 at 21:00; Status Future Hold Fentanyl (Sublimaze) 25 mcg Q1H PRN IV PAIN Last administered on 08/07/17 10: 53; Admin Dose 25 MCG; Start 08/04/17 at 00:00 Metoprolol Tartrate (Lopressor) 5 mg Q4H PRN IV ELEVATED HEART RATE; Start at 04:00 Famotidine 20 mg 20 mg BID IV Last administered on 08/07/17 09:44; Admin Dose 20 MG; Start 08/04/17 at 09:00 Sodium Chloride 1,000 ml @ 100 mls/hr Q10H IV Last administered on 08/07/17 06:09; Admin Dose 100 MLS/HR; Start 08/04/17 at 04:30 Alteplase, Recombinant 10 mg/ Sodium Chloride 100 ml @ 10 mls/hr Q10H IV Last administered on 08/06/17 23:27; Admin Dose 10 MLS/HR; Start 08/04/17 at 11:00 Alteplase, Recombinant 10 mg/ Sodium Chloride 100 ml @ 10 mls/hr Q10H IV Last administered on 08/06/17 14:36; Admin Dose 10 MLS/HR; Start 08/04/17 at 11:00 Heparin Sodium (Porcine) 250 ml @ 10 mls/hr Q24H IV Last administered on 04:39; Admin Dose 17 MLS/HR; Start 08/04/17 at 11:00 Heparin Sodium (Porcine) (Heparin 98296 Units/250 ml) 250 ml @ 10 mls/hr Q24H IV Last administered on 08/06/17 14:38; Admin Dose 9.25 MLS/HR; Start at 11:00 Levalbuterol (Xopenex Neb) 0.63 mg Q6H PRN HHN SHORTNESS OF BREATH; Start 08/06 at 14:00 Acetaminophen/ Hydrocodone Bitart (Clio (5/325)) 2 tab Q4H PRN PO PAIN LEVEL 6 -10; Start 08/06/17 at 08:00 Lactobacillus Acidophilus/ Rhamnosus (Culturelle) 1 cap BID PO ; Start 08/07/17 at 21:00; Status AIMEE CORDERO Aug 07, 2017 11:46
[2017-08-07 13:59] LABS: BASOPHILS % 0.3 % (0.0-2.0); EOSINOPHILS # 0.2 10^3/ul (0.0-0.5); EOSINOPHILS % 1.8 % (0.0-7.0); HEMATOCRIT 28.1 % (42.0-52.0); HEMOGLOBIN 8.7 g/dl (14.0-18.0); LYMPHOCYTES # 1.1 10^3/ul (0.8-2.9); MEAN CORPUSCULAR HEMOGLOBIN 26.4 pg (29.0-33.0); MEAN CORPUSCULAR VOLUME 85.2 fl (82.0-101.0); MEAN PLATELET VOLUME 9.5 fl (7.4-10.4); MONOCYTE # 0.9 10^3/ul (0.3-0.9); MONOCYTES % 9.2 % (0.0-11.0); NEUTROPHIL # 7.8 10^3/ul (1.6-7.5); NEUTROPHILS % 76.3 % (39.0-77.0); PLATELET COUNT 255 10^3/UL (140-415); RED CELL DISTRIBUTION WIDTH 15.3 % (11.5-14.5); WHITE BLOOD COUNT 10.2 10^3/ul (4.8-10.8)
--- NOTE | 2017-08-07 14:10 | PN ---
Date/Time of Note Date/Time of Note DATE: 08/07/17 TIME: 14:02 Assessment/Plan VTE Prophylaxis VTE Prophylaxis Intervention: other Lines/Catheters IV Catheter Type (from [facility]): Peripheral IV Urinary Cath still in place: Yes Assessment/Plan Assessment/Plan - sp LYSIS CHECK, REMOVAL OF VENOUS LYSIS CATHETER, ILIOCAVAL MECHANICAL THROMBECTOMY - Right femoral popliteal artery aneurysm and bilateral lower extremity deep vein thrombosis, status vascular intervention. Patient is currently on heparin and ATP. Continue ICU care per vascular surgery recommendations. -Right upper lobe lung mass. Patient refused lung biopsy at this time. Dr Garay is following in pulmonology consultation. Continue Zithromax with this recommendation for follow-up CT in 3 weeks. -Right lower extremity pain, continue Richardson and morphine as needed for pain. 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 Mendiola is following in vascular surgery consultation. S/p multiple vascular interventions. -Hypercoagulation work up is neg, Dr Amaya is following in hematology consultation. -Left leg DVT -COPD -Dyslipidemia Further recommendations based on clinical course. Plan of care discussed with Dr. Drake Subjective 24 Hr Interval Summary Free Text/Dictation Resting, afebrile, seems comfortable,sp vascular procedure, No acute events overnight,-dw staff Constitutional: requiring IVF Respiratory: no complaints Cardiovascular: no complaints Gastrointestinal: no complaints Musculoskeletal: swelling Exam/Review of Systems Vital Signs Vitals Vital Signs Date Time Temp Pulse Resp B/P Pulse Ox O2 Delivery O2 Flow Rate FiO2 08/07/17 12:00 78 08/07/17 10:00 15 124/81 86 Nasal Cannula 08/07/17 09:00 98.3 08/07/17 08:00 2.0 08/05/17 09:32 21 Intake and Output 08/06/17 08/06/17 08/07/17 15:00 23:00 07:00 Intake Total 1068.00 ml 1168.00 ml 1006.0 ml Output Total 1500 ml 405 ml 550 ml Balance -432.00 ml 763.00 ml 456.0 ml Exam Constitutional: alert, well developed Respiratory: diminished breath sounds Cardiovascular: nl pulses, other (s1s2) Gastrointestinal: non-tender, soft Musculoskeletal: swelling Extremities: edema, normal pulses Neurological: other Results Result Diagram: 08/07/17 0509 08/07/17 0509 Results 24 hrs Laboratory Tests Test 08/06/17 18:02 08/07/17 01:10 08/07/17 05:02 08/07/17 05:09 White Blood Count 9.6 8.7 8.4 Red Blood Count 3.47 L 3.37 L 3.46 L Hemoglobin 9.2 L 9.3 L 9.4 L Hematocrit 29.8 L 28.6 L 29.6 L Mean Corpuscular Volume 85.9 84.9 85.5 Mean Corpuscular Hemoglobin 26.5 L 27.6 L 27.2 L Mean Corpuscular Hemoglobin Concent 30.9 L 32.5 31.8 L Red Cell Distribution Width 15.4 H 15.0 H 15.4 H Platelet Count 256 225 241 Mean Platelet Volume 9.5 8.7 9.6 Neutrophils % 74.9 73.7 71.7 Lymphocytes % 11.9 L 13.0 L 14.1 L Monocytes % 9.2 9.3 9.7 Eosinophils % 2.2 2.2 2.6 Basophils % 0.2 0.3 0.5 Nucleated Red Blood Cells % 0.0 0.0 0.0 Neutrophils # 7.2 6.4 6.0 Lymphocytes # 1.1 1.1 1.2 Monocytes # 0.9 0.8 0.8 Eosinophils # 0.2 0.2 0.2 Basophils # 0.0 0.0 0.0 Nucleated Red Blood Cells # 0.0 0.0 0.0 Prothrombin Time 16.2 H 17.3 H 17.1 H Prothrombin Time Ratio 1.3 1.4 1.3 INR International Normalized Ratio 1.29 1.41 1.39 Activated Partial Thromboplast Time 76.1 *H 116.3 *H 96.2 *H Fibrinogen 250.0 # 248.0 266.0 Sodium Level 139 137 138 Potassium Level 4.0 3.9 4.0 Chloride Level 101 103 106 Carbon Dioxide Level 27 28 26 Anion Gap 15 10 # 10 Blood Urea Nitrogen 12 12 11 Creatinine 0.67 0.66 0.63 Glucose Level 90 96 92 Calcium Level 8.5 8.5 8.5 Phosphorus Level 3.5 3.7 3.5 Magnesium Level 1.9 1.9 1.9 Lab Scanned Report BLOOD TRANSFUSION Test 08/07/17 13:20 White Blood Count 10.2 # Red Blood Count 3.30 L Hemoglobin 8.7 L Hematocrit 28.1 L Mean Corpuscular Volume 85.2 Mean Corpuscular Hemoglobin 26.4 L Mean Corpuscular Hemoglobin Concent 31.0 L Red Cell Distribution Width 15.3 H Platelet Count 255 Mean Platelet Volume 9.5 Neutrophils % 76.3 Lymphocytes % 11.0 L Monocytes % 9.2 Eosinophils % 1.8 Basophils % 0.3 Nucleated Red Blood Cells % 0.0 Neutrophils # 7.8 H Lymphocytes # 1.1 Monocytes # 0.9 Eosinophils # 0.2 Basophils # 0.0 Nucleated Red Blood Cells # 0.0 Medications Medications Current Medications Dutasteride (Avodart) 0.5 mg DAILY PO Last administered on 08/06/17 09:11; Admin Dose 0.5 MG; Start 07/22/17 at 09:00 Gabapentin (Neurontin) 300 mg QHS PO Last administered on 08/06/17 20:30; Admin Dose 300 MG; Start 07/22/17 at 21:00 Salmeterol Xinafoate/ Fluticasone (Advair 250/50 Diskus) 1 inh BID INH Last administered on 08/06/17 20:30; Admin Dose 1 INH; Start 07/22/17 at 09:00 Atorvastatin Calcium (Lipitor) 10 mg QAM PO Last administered on 08/07/17 09: 13; Admin Dose 10 MG; Start 07/22/17 at 09:00 Acetaminophen (Tylenol Tab) 650 mg QID PRN PO PAIN LEVEL 1-5; Start 07/21/17 at 23:30 Ondansetron HCl (Zofran Inj) 4 mg Q6H PRN IV NAUSEA AND/OR VOMITING Last administered on 08/04/17 02:15; Admin Dose 4 MG; Start 07/21/17 at 23:30 Acetaminophen/ Hydrocodone Bitart (Richardson (5/325)) 1 tab Q4H PRN PO PAIN LEVEL 4 -7 Last administered on 08/03/17 16:41; Admin Dose 1 TAB; Start 07/21/17 at 23:30 Famotidine (Pepcid) 20 mg BID PO Last administered on 08/03/17 09:37; Admin Dose 20 MG; Start 07/26/17 at 21:00; Status Future Hold Metoprolol Tartrate (Lopressor) 12.5 mg BID PO Last administered on 08/07/17 09:14; Admin Dose 12.5 MG; Start 07/27/17 at 21:00 Docusate Sodium (Colace) 100 mg BID PO Last administered on 08/06/17 20:30; Admin Dose 100 MG; Start 07/28/17 at 21:00 Polyethylene Glycol (Miralax) 17 gm PRN PRN PO CONSTIPATION Last administered on 07/31/17 20:26; Admin Dose 17 GM; Start 07/28/17 at 15:00 Senna (Senokot) 1 tab DAILY PRN PO CONSTIPATION Last administered on 20:25; Admin Dose 1 TAB; Start 07/30/17 at 17:00 Mineral Oil (Mineral Oil) 30 ml BID PO Last administered on 08/05/17 08:57; Admin Dose 30 ML; Start 07/30/17 at 21:00 Furosemide (Lasix) 20 mg DAILY IV Last administered on 08/07/17 09:13; Admin Dose 20 MG; Start 08/01/17 at 09:00 Lorazepam (Ativan) 0.5 mg Q6H PRN IV ANXIETY Last administered on 08/04/17 08 :52; Admin Dose 0.5 MG; Start 08/01/17 at 19:00 Apixaban (Eliquis) 5 mg BID PO ; Start 08/03/17 at 21:00; Status Future Hold Fentanyl (Sublimaze) 25 mcg Q1H PRN IV PAIN Last administered on 08/07/17 10: 53; Admin Dose 25 MCG; Start 08/04/17 at 00:00 Metoprolol Tartrate (Lopressor) 5 mg Q4H PRN IV ELEVATED HEART RATE; Start at 04:00 Famotidine 20 mg 20 mg BID IV Last administered on 08/07/17 09:44; Admin Dose 20 MG; Start 08/04/17 at 09:00 Sodium Chloride 1,000 ml @ 50 mls/hr Q20H IV Last administered on 08/07/17 06 :09; Admin Dose 100 MLS/HR; Start 08/04/17 at 04:30 Alteplase, Recombinant 10 mg/ Sodium Chloride 100 ml @ 10 mls/hr Q10H IV Last administered on 08/06/17 23:27; Admin Dose 10 MLS/HR; Start 08/04/17 at 11:00 Alteplase, Recombinant 10 mg/ Sodium Chloride 100 ml @ 10 mls/hr Q10H IV Last administered on 08/06/17 14:36; Admin Dose 10 MLS/HR; Start 08/04/17 at 11:00 Heparin Sodium (Porcine) 250 ml @ 10 mls/hr Q24H IV Last administered on 04:39; Admin Dose 17 MLS/HR; Start 08/04/17 at 11:00 Heparin Sodium (Porcine) (Heparin 58269 Units/250 ml) 250 ml @ 10 mls/hr Q24H IV Last administered on 08/06/17 14:38; Admin Dose 9.25 MLS/HR; Start at 11:00 Levalbuterol (Xopenex Neb) 0.63 mg Q6H PRN HHN SHORTNESS OF BREATH; Start 08/06 at 14:00 Acetaminophen/ Hydrocodone Bitart (Richardson (5/325)) 2 tab Q4H PRN PO PAIN LEVEL 6 -10; Start 08/06/17 at 08:00 Lactobacillus Acidophilus/ Rhamnosus (Culturelle) 1 cap BID PO ; Start 08/07/17 at 21:00 JOSIE CHENG Aug 07, 2017 14:10
[2017-08-07 14:15] LABS: INR 1.26; PROTIME 15.9 Sec (12.2-14.2); PT RATIO 1.2
[2017-08-07 14:21] LABS: CALCIUM 8.5 mg/dl (8.4-10.2); CREATININE 0.64 mg/dl (0.61-1.24); MAGNESIUM 1.9 mg/dl (1.7-2.5); PHOSPHORUS 3.7 mg/dl (2.5-4.9); POTASSIUM 3.9 mmol/L (3.5-5.1)
--- NOTE | 2017-08-07 14:23 | PN ---
DATE: 08/07/2017 LOCATION: ICU. SUBJECTIVE: Follow up on remote left venous lysis catheter, IVC mechanical thrombectomy. The patient has recent diagnosis of right lower extremity IVC thrombosis and DVT and right lower extremity fem-pop stent graft thrombosis. The patient is currently on heparin drip. Denies any chest pain. No resting leg pain. No numbness in the lower extremities. Patient denies any chest pain or abdominal pain. No bleeding from any site. No reported fever or chills. PHYSICAL EXAMINATION: GENERAL: The patient is conscious, awake, alert. VITAL SIGNS: Temperature 98.3, pulse 96, respirations 20, blood pressure 110/74 , O2 saturation 93% on 2 liters nasal cannula. HEENT: No eye discharge or redness. Extraocular movement intact. Oropharynx clear. NECK: No JVD, no carotid bruit, thyromegaly. CHEST: Fairly clear. No use of accessory muscles. CARDIOVASCULAR: S1, S2 normal. No murmur, gallop, or rub. ABDOMEN: Soft, nondistended, nontender. Bowel sounds plus. EXTREMITIES: The right leg is swollen, EULALIA wrap in place. Pedal pulses bilaterally palpable. No clubbing, no cyanosis. NEUROLOGIC: The patient is awake, alert, fairly oriented with no gross focal deficit. LABORATORY DATA: WBC 8.4, hemoglobin 9.4, platelets 241. Sodium 138, potassium 4, BUN 11, creatinine 0.6, glucose 92, calcium 8.5, magnesium 1.9. IMPRESSION: 1. Right lower extremity inferior vena cava thrombosis and deep venous thrombosis, right lower extremity fem-pop stent graft thrombosis, status post surgery. The patient also has a popliteal artery aneurysm and bilateral lower extremity deep venous thrombosis and IVC thrombosis status post lysis back on . Continue IV heparin. Monitor as per pharmacy. 2. Hypertension. Blood pressure well controlled. Continue metoprolol. 3. Benign prostatic hypertrophy. Continue Avodart. Will remove Galvan catheter and will monitor for urinary retention. 4. Marginal blood pressure. Will hold off on Flomax. 5. Right lung mass with hilar adenopathy. The patient refused the biopsy and will undergo PET CT as an outpatient and biopsy when he is comfortable. Hypercoagulation workup negative. The patient is being followed by Dr. Padilla from a hematology standpoint. 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 6. Bilateral adrenal nodule. Follow up as an outpatient. 7. Chronic obstructive pulmonary disease. Continue DuoNeb on a daily basis and Advair around the clock. 8. Dyslipidemia, stable with Lipitor. Will continue to monitor in ICU. Sheath was removed today. Spoke with his girlfriend & daughter Total critical care time spent 30 minutes. Dictated By: SEBAS DAILEY/FERNIE Conf#: [id number] DID#: [id number] MTDD
[2017-08-07 14:59] LABS: PARTIAL THROMBOPLASTIN TIME 92.8 Sec (25.0-35.0)
[2017-08-07 17:54] LABS: BASOPHILS % 0.3 % (0.0-2.0); EOSINOPHILS # 0.2 10^3/ul (0.0-0.5); EOSINOPHILS % 2.6 % (0.0-7.0); HEMATOCRIT 28.1 % (42.0-52.0); LYMPHOCYTES # 1.2 10^3/ul (0.8-2.9); LYMPHOCYTES % 13.4 % (15.0-51.0); MEAN CORPUSCULAR HEMOGLOBIN 27.4 pg (29.0-33.0); MEAN CORPUSCULAR VOLUME 85.7 fl (82.0-101.0); MEAN PLATELET VOLUME 9.1 fl (7.4-10.4); MONOCYTE # 0.8 10^3/ul (0.3-0.9); NEUTROPHIL # 6.5 10^3/ul (1.6-7.5); NEUTROPHILS % 73.5 % (39.0-77.0); PLATELET COUNT 257 10^3/UL (140-415); RED BLOOD COUNT 3.28 10^6/ul (4.70-6.10); RED CELL DISTRIBUTION WIDTH 15.1 % (11.5-14.5); WHITE BLOOD COUNT 8.9 10^3/ul (4.8-10.8)
[2017-08-07 18:15] LABS: INR 1.47; PROTIME 17.9 Sec (12.2-14.2); PT RATIO 1.4
[2017-08-07 18:20] LABS: CALCIUM 8.2 mg/dl (8.4-10.2); CREATININE 0.66 mg/dl (0.61-1.24); MAGNESIUM 1.9 mg/dl (1.7-2.5); PHOSPHORUS 3.7 mg/dl (2.5-4.9); POTASSIUM 3.8 mmol/L (3.5-5.1)
[2017-08-07] MEDS: GABAPENTIN 300 MG CAP PO SCH (20:30)
[2017-08-07] MEDS: LACTOBACILLUS RHAMNOSUS CAP PO SCH (20:30)
[2017-08-07] MEDS: ZOLPIDEM 5 MG TAB PO PRN (21:23)
[2017-08-08] VITALS (24 sets, daily range): BP systolic 92–125; BP diastolic 53–85; PULSE 78–106; RESP 18–34
--- NOTE | 2017-08-08 04:54 | PN ---
Date/Time of Note Date/Time of Note DATE: 08/08/17 TIME: 04:45 Assessment/Plan Lines/Catheters IV Catheter Type (from [facility]): Peripheral IV Galvan in Place (from [facility]): No Assessment/Plan Chief Complaint/Hosp Course -Bilateral lower extremity atherosclerosis with disabling claudication and right popliteal artery aneurysm: It seems the patient may have findings of atheroemboli related to his popliteal artery aneurysm. -S/P Right fem-pop Stent grafting and Aortoiliac angiogram 07/23/2017 -Bilateral lower extremity acute venous thrombosis involving CFV, iliac veins and IVC: It seems the patient may have failed with Coumadin therapy as he had previous acute onsets of venous thrombosis with therapeutic INR's. Given the new findings of his CT scan of the lung, concern of cancer given his smoking history is there especially being hypercoagulable and failed Coumadin therapy 07/23/2017: -S/P Bilateral lower extremity venogram -S/P Bilateral CI, EI, CF veins and caval mechanical thrombectomy -S/P Thrombolysis Catheters 07/24/2017: -S/P Bilateral lysis check 07/25/2017 -S/P Bilateral Lysis check & removal of catheters 08/03/2017 - Patient had delayed transition of anticoagulation IV -> PO -S/P RLE angiogram, mechanical thrombectomy and thrombolysis -S/P RLE venogram, lysis catheter placement 08/04/2017 -S/P Lysis check 08/06/2017 -S/P lysis check, -S/P Iliocaval mechanical thrombectomy -S/P Removal of RLE arterial catheter 08/07/2017 -S/P Lysis check -S/P Iliocaval mechanical thrombectomy -S/P Removal of RLE venous catheter -Started Eliquis 10mg PO BID, Will stop Heparin gtt this morning -Will also treat patient with dual antiplatelet therapy ASA and Plavix -Appreciate hematology Evaluation -Recommend for a lung biopsy given the CT chest findings to rule out any underlying tumors (possible cause of worsened hypercoagulable state) when patient is more stable -Continue neurovascular checks Q1 -OOB and FWB with pt/ot -Optimize vascular status (BP meds, diet, nutrition, exercise, sugar control, antiplatelets). -Discussed findings, plan and management with the patient and he understands. -Discussed limb salvage and realistic outcomes of our current findings and the possibility of limb loss with the patient. Patient fully understands the current findings of his hypercoagulable state and possibility of limb loss. Further, spoken with his family and the patient regarding serial interventions that may be needed and increased risks of intracranial hemorrhage, , stroke , [place], infection, thrombosis, device malfunction. We have discussed the plans with our multidisciplinary team and will continue our management per their recommendations -Thank you for allowing us to partake in the care of your patient. Please call with any questions. Problems: Subjective 24 Hr Interval Summary ,no new vascular events overnight, LE discomfort and pain has resolved Exam/Review of Systems Vital Signs Vitals Vital Signs Date Time Temp Pulse Resp B/P Pulse Ox O2 Delivery O2 Flow Rate FiO2 08/08/17 02:00 88 21 112/69 96 Nasal Cannula 08/08/17 00:00 98.4 08/07/17 20:43 2.0 08/05/17 09:32 21 Intake and Output 08/07/17 08/07/17 08/08/17 15:00 23:00 07:00 Intake Total 786 ml 636 ml 201 ml Output Total 1250 ml 850 ml 600 ml Balance -464 ml -214 ml -399 ml Exam Free Text/Dictation GENERAL: Alert and oriented x3, PULMONARY: Coarse breath sounds bilaterally CARDIOVASCULAR: S1, S2 present ABDOMEN: Soft, nontender, nondistended. Bowel sounds positive. EXTREMITIES: -Right lower extremity palpable femoral pulse, palpable pedal (DP) pulse. Motor and sensory intact, Capillary refill 3, edema 2-3+ and soft -Left lower extremity, palpable femoral pulse, palpable pedal pulse. Motor and sensory intact. Capillary refill 3 -Bilateral groins soft Results Result Diagram: 08/07/17 1725 08/07/17 1725 MATT MCCULLOUGH MD Aug 08, 2017 04:54
[2017-08-08 07:03] LABS: BASOPHILS % 0.4 % (0.0-2.0); EOSINOPHILS # 0.4 10^3/ul (0.0-0.5); EOSINOPHILS % 5.6 % (0.0-7.0); HEMATOCRIT 27.7 % (42.0-52.0); HEMOGLOBIN 8.5 g/dl (14.0-18.0); LYMPHOCYTES # 1.2 10^3/ul (0.8-2.9); LYMPHOCYTES % 17.2 % (15.0-51.0); MEAN CORPUSCULAR HEMOGLOBIN 26.5 pg (29.0-33.0); MEAN CORPUSCULAR HGB CONC 30.7 g/dl (32.0-37.0); MEAN CORPUSCULAR VOLUME 86.3 fl (82.0-101.0); MEAN PLATELET VOLUME 9.5 fl (7.4-10.4); MONOCYTE # 0.7 10^3/ul (0.3-0.9); MONOCYTES % 10.2 % (0.0-11.0); NEUTROPHIL # 4.6 10^3/ul (1.6-7.5); NEUTROPHILS % 65.2 % (39.0-77.0); PLATELET COUNT 262 10^3/UL (140-415); RED BLOOD COUNT 3.21 10^6/ul (4.70-6.10); RED CELL DISTRIBUTION WIDTH 15.4 % (11.5-14.5)
[2017-08-08 07:29] LABS: CALCIUM 8.2 mg/dl (8.4-10.2); CREATININE 0.7 mg/dl (0.61-1.24); POTASSIUM 3.7 mmol/L (3.5-5.1)
[2017-08-08] MEDS: DOCUSATE SODIUM 100 MG CAP PO SCH ×2 (09:00→21:05)
[2017-08-08] MEDS: MINERAL OIL 30ML CUP PO SCH ×3 (09:00→21:06)
[2017-08-08] MEDS ORDERED: CLOPIDOGREL 75 MG TAB PO ONE (09:00)
[2017-08-08] MEDS: FUROSEMIDE 20 MG INJ IV SCH (09:12)
[2017-08-08] MEDS: FAMOTIDINE 20 MG INJ IV SCH ×2 (09:12→21:08)
[2017-08-08] MEDS: LACTOBACILLUS RHAMNOSUS CAP PO SCH ×2 (09:13→21:00)
[2017-08-08] MEDS: METOPROLOL 25 MG TAB PO SCH ×2 (09:13→21:06)
[2017-08-08] MEDS: DUTASTERIDE 0.5 MG CAP PO SCH (09:13)
[2017-08-08] MEDS: ATORVASTATIN 10 MG TAB PO SCH (09:13)
[2017-08-08] MEDS: AZITHROMYCIN 250 MG TAB PO SCH (09:15)
[2017-08-08] MEDS: ASPIRIN (EC) 81 MG TAB PO SCH (09:15)
[2017-08-08] MEDS: SOD CHLORIDE 0.9% 1,000 ML IV SCH (09:15)
[2017-08-08] MEDS: SALMETEROL/FLUTICASONE 250/50 INHA INH SCH ×2 (09:16→21:00)
--- NOTE | 2017-08-08 10:48 | CONS ---
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 , S/p R fem-pop stent grafting and aortoiliac angiogram and S/p BLE thrombectomy (pt had multiple lysis checks and thrombectomies with latest on 08/07/2017) - H/o DVT s/p IVC filter - RUL mass-like lesion concerning for malignancy/Pulmonary nodule with possible PNA per pulmonary - declining biopsy, s/p empiric azithromycin - Bilateral adrenal nodules concerning for malignancy per CT - COPD/emphysema - Hypercoagulation - Dyslipidemia - Debility d/t prolonged hospitalization Recommendations: - monitor closely off antibiotics - trend WBC - pending: cocci, crypto - continue probiotics Management d/w pt, SHAWN Pires, and Dr. Faria Critical care time spent: 40 min Problems: Consultation Date/Type/Reason Admit Date/Time Jul 21, 2017 at 23:03 Initial Consult Date 08/04/17 Type of Consultation: Infectious Disease Referring Provider: SEBAS LALA MD 24 HR Interval Summary Free Text/Dictation S/P Lysis check, Iliocaval mechanical thrombectomy, and removal of RLE venous catheter yesterday. Still on heparin drip. Got up with PT today and walked 75' with FWW per d/w nursing staff. "I walked for the first time in a long while" per pt. Denies pain, SOB, n/v/d, dysuria. Anxious to move out of ICU. Exam/Review of Systems Vital Signs Vitals Vital Signs Date Time Temp Pulse Resp B/P Pulse Ox O2 Delivery O2 Flow Rate FiO2 08/08/17 08:00 96 08/08/17 07:00 22 103/61 92 Room Air 08/08/17 04:00 98.4 08/07/17 20:43 2.0 08/05/17 09:32 21 Intake and Output 08/07/17 08/07/17 08/08/17 15:00 23:00 07:00 Intake Total 786 ml 636 ml 536 ml Output Total 1250 ml 850 ml 1100 ml Balance -464 ml -214 ml -564 ml Exam Constitutional: alert, oriented, other (thin), well developed Psych: no complaints Head: atraumatic, normocephalic Eyes: nl sclera Neck: supple Respiratory: clear to auscultation, normal air movement Cardiovascular: regular rate and rhythm Gastrointestinal: soft, No distended Genitourinary - Male: other (No Galvan) Extremities: edema (RLE), other (RLE wrapped in irene bandage c/d/i) Neurological: nl mental status, nl speech Skin: nl turgor Results Result Diagram: 08/08/17 0608 08/08/17 0608 Results 24 hrs Laboratory Tests Test 08/07/17 13:20 08/07/17 17:25 08/08/17 06:08 White Blood Count 10.2 # 8.9 7.0 # Red Blood Count 3.30 L 3.28 L 3.21 L Hemoglobin 8.7 L 9.0 L 8.5 L Hematocrit 28.1 L 28.1 L 27.7 L Mean Corpuscular Volume 85.2 85.7 86.3 Mean Corpuscular Hemoglobin 26.4 L 27.4 L 26.5 L Mean Corpuscular Hemoglobin Concent 31.0 L 32.0 30.7 L Red Cell Distribution Width 15.3 H 15.1 H 15.4 H Platelet Count 255 257 262 Mean Platelet Volume 9.5 9.1 9.5 Neutrophils % 76.3 73.5 65.2 Lymphocytes % 11.0 L 13.4 L 17.2 Monocytes % 9.2 9.0 10.2 Eosinophils % 1.8 2.6 5.6 Basophils % 0.3 0.3 0.4 Nucleated Red Blood Cells % 0.0 0.0 0.0 Neutrophils # 7.8 H 6.5 4.6 Lymphocytes # 1.1 1.2 1.2 Monocytes # 0.9 0.8 0.7 Eosinophils # 0.2 0.2 0.4 Basophils # 0.0 0.0 0.0 Nucleated Red Blood Cells # 0.0 0.0 0.0 Prothrombin Time 15.9 H 17.9 H Prothrombin Time Ratio 1.2 1.4 INR International Normalized Ratio 1.26 1.47 Activated Partial Thromboplast Time 92.8 *H 96.0 *H > 180.0 *H Fibrinogen 291.0 # 288.0 Sodium Level 138 137 141 Potassium Level 3.9 3.8 3.7 Chloride Level 104 103 105 Carbon Dioxide Level 27 26 28 Anion Gap 11 12 12 Blood Urea Nitrogen 12 11 10 Creatinine 0.64 0.66 0.70 Glucose Level 90 87 85 Calcium Level 8.5 8.2 L 8.2 L Phosphorus Level 3.7 3.7 Magnesium Level 1.9 1.9 Medications Medications Current Medications Dutasteride (Avodart) 0.5 mg DAILY PO Last administered on 08/08/17 09:13; Admin Dose 0.5 MG; Start 07/22/17 at 09:00 Gabapentin (Neurontin) 300 mg QHS PO Last administered on 08/07/17 20:30; Admin Dose 300 MG; Start 07/22/17 at 21:00 Salmeterol Xinafoate/ Fluticasone (Advair 250/50 Diskus) 1 inh BID INH Last administered on 08/08/17 09:16; Admin Dose 1 INH; Start 07/22/17 at 09:00 Atorvastatin Calcium (Lipitor) 10 mg QAM PO Last administered on 08/08/17 09: 13; Admin Dose 10 MG; Start 07/22/17 at 09:00 Acetaminophen (Tylenol Tab) 650 mg QID PRN PO PAIN LEVEL 1-5; Start 07/21/17 at 23:30 Ondansetron HCl (Zofran Inj) 4 mg Q6H PRN IV NAUSEA AND/OR VOMITING Last administered on 08/04/17 02:15; Admin Dose 4 MG; Start 07/21/17 at 23:30 Acetaminophen/ Hydrocodone Bitart ([place] (5/325)) 1 tab Q4H PRN PO PAIN LEVEL 4 -7 Last administered on 08/03/17 16:41; Admin Dose 1 TAB; Start 07/21/17 at 23:30 Famotidine (Pepcid) 20 mg BID PO Last administered on 08/03/17 09:37; Admin Dose 20 MG; Start 07/26/17 at 21:00; Status Future Hold Metoprolol Tartrate (Lopressor) 12.5 mg BID PO Last administered on 08/08/17 09:13; Admin Dose 12.5 MG; Start 07/27/17 at 21:00 Docusate Sodium (Colace) 100 mg BID PO Last administered on 08/07/17 20:31; Admin Dose 100 MG; Start 07/28/17 at 21:00 Polyethylene Glycol (Miralax) 17 gm PRN PRN PO CONSTIPATION Last administered on 07/31/17 20:26; Admin Dose 17 GM; Start 07/28/17 at 15:00 Senna (Senokot) 1 tab DAILY PRN PO CONSTIPATION Last administered on 20:25; Admin Dose 1 TAB; Start 07/30/17 at 17:00 Mineral Oil (Mineral Oil) 30 ml BID PO Last administered on 08/05/17 08:57; Admin Dose 30 ML; Start 07/30/17 at 21:00 Furosemide (Lasix) 20 mg DAILY IV Last administered on 08/08/17 09:12; Admin Dose 20 MG; Start 08/01/17 at 09:00 Lorazepam (Ativan) 0.5 mg Q6H PRN IV ANXIETY Last administered on 08/04/17 08 :52; Admin Dose 0.5 MG; Start 08/01/17 at 19:00 Fentanyl (Sublimaze) 25 mcg Q1H PRN IV PAIN Last administered on 08/07/17 15: 32; Admin Dose 25 MCG; Start 08/04/17 at 00:00 Metoprolol Tartrate (Lopressor) 5 mg Q4H PRN IV ELEVATED HEART RATE; Start at 04:00 Famotidine 20 mg 20 mg BID IV Last administered on 08/08/17 09:12; Admin Dose 20 MG; Start 08/04/17 at 09:00 Sodium Chloride 1,000 ml @ 50 mls/hr Q20H IV Last administered on 08/07/17 19 :01; Admin Dose 50 MLS/HR; Start 08/04/17 at 04:30 Heparin Sodium (Porcine) 250 ml @ 10 mls/hr Q24H IV Last administered on 19:27; Admin Dose 17 MLS/HR; Start 08/04/17 at 11:00 Heparin Sodium (Porcine) (Heparin 56939 Units/250 ml) 250 ml @ 10 mls/hr Q24H IV Last administered on 11/1/17at 14:38; Admin Dose 9.25 MLS/HR; Start at 11:00 Levalbuterol (Xopenex Neb) 0.63 mg Q6H PRN HHN SHORTNESS OF BREATH; Start 08/06 at 14:00 Acetaminophen/ Hydrocodone Bitart ([place] (5/325)) 2 tab Q4H PRN PO PAIN LEVEL 6 -10; Start 08/06/17 at 08:00 Lactobacillus Acidophilus/ Rhamnosus (Culturelle) 1 cap BID PO Last administered on 08/08/17 09:13; Admin Dose 1 CAP; Start 08/07/17 at 21:00 Apixaban (Eliquis) 10 mg BID PO ; Start 08/08/17 at 09:00 Aspirin (Halfprin) 81 mg DAILY PO Last administered on 08/08/17 09:15; Admin Dose 81 MG; Start 08/08/17 at 09:00 Azithromycin (Zithromax) 250 mg DAILY PO Last administered on 08/08/17 09:15; Admin Dose 250 MG; Start 08/08/17 at 09:00; Stop 08/12/17 at 12:00 Clopidogrel Bisulfate (plaVIX) 75 mg DAILY PO ; Start 08/09/17 at 09:00 JEANMARIE MALONEY NP Aug 08, 2017 10:48
[2017-08-08] MEDS: APIXABAN 5 MG TABLET PO SCH ×2 (11:14→21:05)
--- NOTE | 2017-08-08 11:23 | CONS ---
Date/Time of Note Date/Time of Note DATE: 08/08/17 TIME: 11:21 Consult Date/Type/Reason Admit Date/Time Jul 21, 2017 at 23:03 Initial Consult Date 08/01/17 Type of Consultation: Pulmonary Ordering Provider: SEBAS LALA MD Subjective Patient remains stable this morning. No new events. Objective Vital Signs Date Time Temp Pulse Resp B/P Pulse Ox O2 Delivery O2 Flow Rate FiO2 08/08/17 08:00 96 08/08/17 07:00 22 103/61 92 Room Air 08/08/17 04:00 98.4 08/07/17 20:43 2.0 08/05/17 09:32 21 Intake and Output 08/07/17 08/07/17 08/08/17 15:00 23:00 07:00 Intake Total 786 ml 636 ml 536 ml Output Total 1250 ml 850 ml 1100 ml Balance -464 ml -214 ml -564 ml Exam GENERAL: Thin gentleman comfortable at rest no acute distress VITAL SIGNS: per chart NECK: Supple. No JVD or lymphadenopathy. CARDIAC EXAM: S1, S2. No added sounds or murmurs. CHEST: clear bilaterally, No added sounds, rales or wheezes ABDOMEN: Soft, nontender. No guarding or rebound. EXTREMITIES: No cyanosis, clubbing or edema. NEUROLOGIC: Generalized weakness. No focal deficits. Results/Medications Result Diagram: 08/08/17 0608 08/08/17 0608 Results 24 hrs Laboratory Tests Test 08/07/17 13:20 08/07/17 17:25 08/08/17 06:08 08/08/17 10:05 White Blood Count 10.2 # 8.9 7.0 # Red Blood Count 3.30 L 3.28 L 3.21 L Hemoglobin 8.7 L 9.0 L 8.5 L Hematocrit 28.1 L 28.1 L 27.7 L Mean Corpuscular Volume 85.2 85.7 86.3 Mean Corpuscular Hemoglobin 26.4 L 27.4 L 26.5 L Mean Corpuscular Hemoglobin Concent 31.0 L 32.0 30.7 L Red Cell Distribution Width 15.3 H 15.1 H 15.4 H Platelet Count 255 257 262 Mean Platelet Volume 9.5 9.1 9.5 Neutrophils % 76.3 73.5 65.2 Lymphocytes % 11.0 L 13.4 L 17.2 Monocytes % 9.2 9.0 10.2 Eosinophils % 1.8 2.6 5.6 Basophils % 0.3 0.3 0.4 Nucleated Red Blood Cells % 0.0 0.0 0.0 Neutrophils # 7.8 H 6.5 4.6 Lymphocytes # 1.1 1.2 1.2 Monocytes # 0.9 0.8 0.7 Eosinophils # 0.2 0.2 0.4 Basophils # 0.0 0.0 0.0 Nucleated Red Blood Cells # 0.0 0.0 0.0 Prothrombin Time 15.9 H 17.9 H Prothrombin Time Ratio 1.2 1.4 INR International Normalized Ratio 1.26 1.47 Activated Partial Thromboplast Time 92.8 *H 96.0 *H > 180.0 *H 42.3 H Fibrinogen 291.0 # 288.0 Sodium Level 138 137 141 Potassium Level 3.9 3.8 3.7 Chloride Level 104 103 105 Carbon Dioxide Level 27 26 28 Anion Gap 11 12 12 Blood Urea Nitrogen 12 11 10 Creatinine 0.64 0.66 0.70 Glucose Level 90 87 85 Calcium Level 8.5 8.2 L 8.2 L Phosphorus Level 3.7 3.7 Magnesium Level 1.9 1.9 Medications Current Medications Dutasteride (Avodart) 0.5 mg DAILY PO Last administered on 08/08/17 09:13; Admin Dose 0.5 MG; Start 07/22/17 at 09:00 Gabapentin (Neurontin) 300 mg QHS PO Last administered on 08/07/17 20:30; Admin Dose 300 MG; Start 07/22/17 at 21:00 Salmeterol Xinafoate/ Fluticasone (Advair 250/50 Diskus) 1 inh BID INH Last administered on 08/08/17 09:16; Admin Dose 1 INH; Start 07/22/17 at 09:00 Atorvastatin Calcium (Lipitor) 10 mg QAM PO Last administered on 08/08/17 09: 13; Admin Dose 10 MG; Start 07/22/17 at 09:00 Acetaminophen (Tylenol Tab) 650 mg QID PRN PO PAIN LEVEL 1-5; Start 07/21/17 at 23:30 Ondansetron HCl (Zofran Inj) 4 mg Q6H PRN IV NAUSEA AND/OR VOMITING Last administered on 08/04/17 02:15; Admin Dose 4 MG; Start 07/21/17 at 23:30 Acetaminophen/ Hydrocodone Bitart ([place] (5/325)) 1 tab Q4H PRN PO PAIN LEVEL 4 -7 Last administered on 08/03/17 16:41; Admin Dose 1 TAB; Start 07/21/17 at 23:30 Famotidine (Pepcid) 20 mg BID PO Last administered on 08/03/17 09:37; Admin Dose 20 MG; Start 07/26/17 at 21:00; Status Future Hold Metoprolol Tartrate (Lopressor) 12.5 mg BID PO Last administered on 08/08/17 09:13; Admin Dose 12.5 MG; Start 07/27/17 at 21:00 Docusate Sodium (Colace) 100 mg BID PO Last administered on 08/07/17 20:31; Admin Dose 100 MG; Start 07/28/17 at 21:00 Polyethylene Glycol (Miralax) 17 gm PRN PRN PO CONSTIPATION Last administered on 07/31/17 20:26; Admin Dose 17 GM; Start 07/28/17 at 15:00 Senna (Senokot) 1 tab DAILY PRN PO CONSTIPATION Last administered on 20:25; Admin Dose 1 TAB; Start 07/30/17 at 17:00 Mineral Oil (Mineral Oil) 30 ml BID PO Last administered on 08/05/17 08:57; Admin Dose 30 ML; Start 07/30/17 at 21:00 Furosemide (Lasix) 20 mg DAILY IV Last administered on 08/08/17 09:12; Admin Dose 20 MG; Start 08/01/17 at 09:00 Lorazepam (Ativan) 0.5 mg Q6H PRN IV ANXIETY Last administered on 08/04/17 08 :52; Admin Dose 0.5 MG; Start 08/01/17 at 19:00 Fentanyl (Sublimaze) 25 mcg Q1H PRN IV PAIN Last administered on 08/07/17 15: 32; Admin Dose 25 MCG; Start 08/04/17 at 00:00 Metoprolol Tartrate (Lopressor) 5 mg Q4H PRN IV ELEVATED HEART RATE; Start at 04:00 Famotidine 20 mg 20 mg BID IV Last administered on 08/08/17 09:12; Admin Dose 20 MG; Start 08/04/17 at 09:00 Sodium Chloride 1,000 ml @ 50 mls/hr Q20H IV Last administered on 08/07/17 19 :01; Admin Dose 50 MLS/HR; Start 08/04/17 at 04:30 Heparin Sodium (Porcine) (Heparin 03448 Units/250 ml) 250 ml @ 10 mls/hr Q24H IV Last administered on 08/07/17 19:27; Admin Dose 17 MLS/HR; Start 08/04/17 at 11:00 Levalbuterol (Xopenex Neb) 0.63 mg Q6H PRN HHN SHORTNESS OF BREATH; Start 08/06 at 14:00 Acetaminophen/ Hydrocodone Bitart ([place] (5/325)) 2 tab Q4H PRN PO PAIN LEVEL 6 -10; Start 08/06/17 at 08:00 Lactobacillus Acidophilus/ Rhamnosus (Culturelle) 1 cap BID PO Last administered on 08/08/17 09:13; Admin Dose 1 CAP; Start 08/07/17 at 21:00 Apixaban (Eliquis) 10 mg BID PO Last administered on 08/08/17 11:14; Admin Dose 10 MG; Start 08/08/17 at 09:00 Aspirin (Halfprin) 81 mg DAILY PO Last administered on 08/08/17 09:15; Admin Dose 81 MG; Start 08/08/17 at 09:00 Azithromycin (Zithromax) 250 mg DAILY PO Last administered on 08/08/17 09:15; Admin Dose 250 MG; Start 08/08/17 at 09:00; Stop 08/12/17 at 12:00 Clopidogrel Bisulfate (plaVIX) 75 mg DAILY PO ; Start 08/09/17 at 09:00 Assessment/Plan Chief Complaint/Hosp Course Assessment 1. Significant vasculopath. Status post declotting of venous and arterial thrombosis. 2. History of COPD 3. Solitary nodule concerning for possible malignancy Plan 1. Physical therapy per vascular surgery 2. Bronchodilators as needed 3. Patient deferred workup of solitary nodule on this admission states he wishes to pursue it as an outpatient. Will need outpatient pulmonary function testing and PET scan. Transfer to telemetry okay from pulmonary standpoint 1. 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 2. Incidental discovery of right upper lobe nodule which is completely calcified, the patient is well aware of that for the last several years. 3. Advanced COPD with poor functional status. Outpatient pulmonary function testing and PET scan DC planning okay from pulmonary standpoint Problems: JAMES HOSKINS MD, [facility] Aug 08, 2017 11:23
--- NOTE | 2017-08-08 12:17 | CONS ---
Date/Time of Note Date/Time of Note DATE: 08/08/17 TIME: 12:15 Assessment/Plan Assessment/Plan Chief Complaint/Hosp Course #RLE Lung mass with hilar adenopathy -given CT findings there is increased concern for lung cancer, especially given his smoking history -the CT findings were discussed in detail with the patient who understands he will need a biopsy to rule out cancer -at this time, patient has changed his mind and does not want to pursue a biopsy in the hospital. -as explained to the patient we can perform an out patient PET CT and biopsy when he is comfortable -although this mass has been there for years, the hilar adenopathy makes me concerned for underlying cancer. 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 Pt likely having thromboemboli form this aneurism -continue Plavix Problems: Consultation Date/Type/Reason Admit Date/Time Jul 21, 2017 at 23:03 Initial Consult Date 07/23/17 Type of Consultation: hematology Reason for Consultation BLE DVT/ coagulopathy Referring Provider: SEBAS LALA MD 24 HR Interval Summary Free Text/Dictation pt was started on Eliquis this morning. Heparin gtt to be stopped today Exam/Review of Systems Vital Signs Vitals Vital Signs Date Time Temp Pulse Resp B/P Pulse Ox O2 Delivery O2 Flow Rate FiO2 08/08/17 11:00 84 28 113/75 98 Room Air 08/08/17 08:00 98.6 08/07/17 20:43 2.0 08/05/17 09:32 21 Intake and Output 08/07/17 08/07/17 08/08/17 15:00 23:00 07:00 Intake Total 786 ml 636 ml 536 ml Output Total 1250 ml 850 ml 1100 ml Balance -464 ml -214 ml -564 ml Exam Constitutional: alert, frail, oriented Psych: depression, no complaints Head: normocephalic Eyes: nl conjunctiva ENMT: nl external ears & nose Neck: non-tender, supple Respiratory: clear to auscultation Cardiovascular: regular rate and rhythm Extremities: other (LE with chronic venous stasis changes. pulses felt) Results Result Diagram: 08/08/17 0608 08/08/17 0608 Results 24 hrs Laboratory Tests Test 08/07/17 13:20 08/07/17 17:25 08/08/17 06:08 08/08/17 10:05 White Blood Count 10.2 # 8.9 7.0 # Red Blood Count 3.30 L 3.28 L 3.21 L Hemoglobin 8.7 L 9.0 L 8.5 L Hematocrit 28.1 L 28.1 L 27.7 L Mean Corpuscular Volume 85.2 85.7 86.3 Mean Corpuscular Hemoglobin 26.4 L 27.4 L 26.5 L Mean Corpuscular Hemoglobin Concent 31.0 L 32.0 30.7 L Red Cell Distribution Width 15.3 H 15.1 H 15.4 H Platelet Count 255 257 262 Mean Platelet Volume 9.5 9.1 9.5 Neutrophils % 76.3 73.5 65.2 Lymphocytes % 11.0 L 13.4 L 17.2 Monocytes % 9.2 9.0 10.2 Eosinophils % 1.8 2.6 5.6 Basophils % 0.3 0.3 0.4 Nucleated Red Blood Cells % 0.0 0.0 0.0 Neutrophils # 7.8 H 6.5 4.6 Lymphocytes # 1.1 1.2 1.2 Monocytes # 0.9 0.8 0.7 Eosinophils # 0.2 0.2 0.4 Basophils # 0.0 0.0 0.0 Nucleated Red Blood Cells # 0.0 0.0 0.0 Prothrombin Time 15.9 H 17.9 H Prothrombin Time Ratio 1.2 1.4 INR International Normalized Ratio 1.26 1.47 Activated Partial Thromboplast Time 92.8 *H 96.0 *H > 180.0 *H 42.3 H Fibrinogen 291.0 # 288.0 Sodium Level 138 137 141 Potassium Level 3.9 3.8 3.7 Chloride Level 104 103 105 Carbon Dioxide Level 27 26 28 Anion Gap 11 12 12 Blood Urea Nitrogen 12 11 10 Creatinine 0.64 0.66 0.70 Glucose Level 90 87 85 Calcium Level 8.5 8.2 L 8.2 L Phosphorus Level 3.7 3.7 Magnesium Level 1.9 1.9 Medications Medications Current Medications Dutasteride (Avodart) 0.5 mg DAILY PO Last administered on 08/08/17 09:13; Admin Dose 0.5 MG; Start 07/22/17 at 09:00 Gabapentin (Neurontin) 300 mg QHS PO Last administered on 08/07/17 20:30; Admin Dose 300 MG; Start 07/22/17 at 21:00 Salmeterol Xinafoate/ Fluticasone (Advair 250/50 Diskus) 1 inh BID INH Last administered on 08/08/17 09:16; Admin Dose 1 INH; Start 07/22/17 at 09:00 Atorvastatin Calcium (Lipitor) 10 mg QAM PO Last administered on 08/08/17 09: 13; Admin Dose 10 MG; Start 07/22/17 at 09:00 Acetaminophen (Tylenol Tab) 650 mg QID PRN PO PAIN LEVEL 1-5; Start 07/21/17 at 23:30 Ondansetron HCl (Zofran Inj) 4 mg Q6H PRN IV NAUSEA AND/OR VOMITING Last administered on 08/04/17 02:15; Admin Dose 4 MG; Start 07/21/17 at 23:30 Acetaminophen/ Hydrocodone Bitart ([place] (5/325)) 1 tab Q4H PRN PO PAIN LEVEL 4 -7 Last administered on 08/03/17 16:41; Admin Dose 1 TAB; Start 07/21/17 at 23:30 Famotidine (Pepcid) 20 mg BID PO Last administered on 08/03/17 09:37; Admin Dose 20 MG; Start 07/26/17 at 21:00; Status Future Hold Metoprolol Tartrate (Lopressor) 12.5 mg BID PO Last administered on 08/08/17 09:13; Admin Dose 12.5 MG; Start 07/27/17 at 21:00 Docusate Sodium (Colace) 100 mg BID PO Last administered on 08/07/17 20:31; Admin Dose 100 MG; Start 07/28/17 at 21:00 Polyethylene Glycol (Miralax) 17 gm PRN PRN PO CONSTIPATION Last administered on 07/31/17 20:26; Admin Dose 17 GM; Start 07/28/17 at 15:00 Senna (Senokot) 1 tab DAILY PRN PO CONSTIPATION Last administered on 20:25; Admin Dose 1 TAB; Start 07/30/17 at 17:00 Mineral Oil (Mineral Oil) 30 ml BID PO Last administered on 08/05/17 08:57; Admin Dose 30 ML; Start 07/30/17 at 21:00 Furosemide (Lasix) 20 mg DAILY IV Last administered on 08/08/17 09:12; Admin Dose 20 MG; Start 08/01/17 at 09:00 Lorazepam (Ativan) 0.5 mg Q6H PRN IV ANXIETY Last administered on 08/04/17 08 :52; Admin Dose 0.5 MG; Start 08/01/17 at 19:00 Fentanyl (Sublimaze) 25 mcg Q1H PRN IV PAIN Last administered on 08/07/17 15: 32; Admin Dose 25 MCG; Start 08/04/17 at 00:00 Metoprolol Tartrate (Lopressor) 5 mg Q4H PRN IV ELEVATED HEART RATE; Start at 04:00 Famotidine 20 mg 20 mg BID IV Last administered on 08/08/17 09:12; Admin Dose 20 MG; Start 08/04/17 at 09:00 Sodium Chloride 1,000 ml @ 50 mls/hr Q20H IV Last administered on 08/07/17 19 :01; Admin Dose 50 MLS/HR; Start 08/04/17 at 04:30 Heparin Sodium (Porcine) (Heparin 23392 Units/250 ml) 250 ml @ 10 mls/hr Q24H IV Last administered on 08/07/17 19:27; Admin Dose 17 MLS/HR; Start 08/04/17 at 11:00; Stop 08/08/17 at 13:30 Levalbuterol (Xopenex Neb) 0.63 mg Q6H PRN HHN SHORTNESS OF BREATH; Start 08/06 at 14:00 Acetaminophen/ Hydrocodone Bitart ([place] (5/325)) 2 tab Q4H PRN PO PAIN LEVEL 6 -10; Start 08/06/17 at 08:00 Lactobacillus Acidophilus/ Rhamnosus (Culturelle) 1 cap BID PO Last administered on 08/08/17 09:13; Admin Dose 1 CAP; Start 08/07/17 at 21:00 Apixaban (Eliquis) 10 mg BID PO Last administered on 08/08/17 11:14; Admin Dose 10 MG; Start 08/08/17 at 09:00 Aspirin (Halfprin) 81 mg DAILY PO Last administered on 08/08/17 09:15; Admin Dose 81 MG; Start 08/08/17 at 09:00 Azithromycin (Zithromax) 250 mg DAILY PO Last administered on 08/08/17 09:15; Admin Dose 250 MG; Start 08/08/17 at 09:00; Stop 08/12/17 at 12:00 Clopidogrel Bisulfate (plaVIX) 75 mg DAILY PO ; Start 08/09/17 at 09:00 AMARA MCINTYRE M.D. Aug 08, 2017 12:17
--- NOTE | 2017-08-08 13:42 | PN ---
Date/Time of Note Date/Time of Note DATE: 08/08/17 TIME: 13:34 Assessment/Plan VTE Prophylaxis VTE Prophylaxis Intervention: SCD's Lines/Catheters IV [facility]atheter Type (from [facility]): Peripheral IV Central line still needed: Yes Urinary Cath still in place: No Assessment/Plan Chief Complaint/Hosp Course Patient is S/P Iliocaval mechanical thrombectomy, S/P Removal of RLE venous catheter yesterday. Started on Eliquis today in the morning heparin drip DC'd. Patient stated stated that he has significant improvement in her right lower extremities pain. Stable vital signs. 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 Dr. Mendiola is following in vascular surgery consultation. status post heparin drip. Continue Eliquis, aspirin and Plavix. -Hypercoagulation work up is neg, Dr Amaya is following in hematology consultation. 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 Patient refused lung biopsy at this time. Dr Garay is following in pulmonology consultation. Continue Zithromax with this recommendation for follow-up CT in [address] as an outpatient and biopsy when he is comfortable. -COPD, continue Advair -Dyslipidemia -BPH Further recommendations based on clinical course. Plan of care discussed with Dr. Drake Problems: Exam/Review of Systems Vital Signs Vitals Vital Signs Date Time Temp Pulse Resp B/P Pulse Ox O2 Delivery O2 Flow Rate FiO2 08/08/17 12:00 78 08/08/17 11:00 28 113/75 98 Room Air 08/08/17 08:00 98.6 08/07/17 20:43 2.0 08/05/17 09:32 21 Intake and Output 08/07/17 08/07/17 08/08/17 15:00 23:00 07:00 Intake Total 786 ml 636 ml 536 ml Output Total 1250 ml 850 ml 1100 ml Balance -464 ml -214 ml -564 ml Exam Constitutional: alert, oriented Respiratory: normal air movement Cardiovascular: nl pulses Gastrointestinal: non-tender, soft Musculoskeletal: nl extremities to inspection Extremities: edema RLE Neurological: nl mental status Results Result Diagram: 08/08/17 0608 08/08/17 0608 Results 24 hrs Laboratory Tests Test 08/07/17 17:25 08/08/17 06:08 08/08/17 10:05 White Blood Count 8.9 7.0 # Red Blood Count 3.28 L 3.21 L Hemoglobin 9.0 L 8.5 L Hematocrit 28.1 L 27.7 L Mean Corpuscular Volume 85.7 86.3 Mean Corpuscular Hemoglobin 27.4 L 26.5 L Mean Corpuscular Hemoglobin Concent 32.0 30.7 L Red Cell Distribution Width 15.1 H 15.4 H Platelet Count 257 262 Mean Platelet Volume 9.1 9.5 Neutrophils % 73.5 65.2 Lymphocytes % 13.4 L 17.2 Monocytes % 9.0 10.2 Eosinophils % 2.6 5.6 Basophils % 0.3 0.4 Nucleated Red Blood Cells % 0.0 0.0 Neutrophils # 6.5 4.6 Lymphocytes # 1.2 1.2 Monocytes # 0.8 0.7 Eosinophils # 0.2 0.4 Basophils # 0.0 0.0 Nucleated Red Blood Cells # 0.0 0.0 Prothrombin Time 17.9 H Prothrombin Time Ratio 1.4 INR International Normalized Ratio 1.47 Activated Partial Thromboplast Time 96.0 *H > 180.0 *H 42.3 H Fibrinogen 288.0 Sodium Level 137 141 Potassium Level 3.8 3.7 Chloride Level 103 105 Carbon Dioxide Level 26 28 Anion Gap 12 12 Blood Urea Nitrogen 11 10 Creatinine 0.66 0.70 Glucose Level 87 85 Calcium Level 8.2 L 8.2 L Phosphorus Level 3.7 Magnesium Level 1.9 Medications Medications Current Medications Dutasteride (Avodart) 0.5 mg DAILY PO Last administered on 08/08/17 09:13; Admin Dose 0.5 MG; Start 07/22/17 at 09:00 Gabapentin (Neurontin) 300 mg QHS PO Last administered on 08/07/17 20:30; Admin Dose 300 MG; Start 07/22/17 at 21:00 Salmeterol Xinafoate/ Fluticasone (Advair 250/50 Diskus) 1 inh BID INH Last administered on 08/08/17 09:16; Admin Dose 1 INH; Start 07/22/17 at 09:00 Atorvastatin Calcium (Lipitor) 10 mg QAM PO Last administered on 08/08/17 09: 13; Admin Dose 10 MG; Start 07/22/17 at 09:00 Acetaminophen (Tylenol Tab) 650 mg QID PRN PO PAIN LEVEL 1-5; Start 07/21/17 at 23:30 Ondansetron HCl (Zofran Inj) 4 mg Q6H PRN IV NAUSEA AND/OR VOMITING Last administered on 08/04/17 02:15; Admin Dose 4 MG; Start 07/21/17 at 23:30 Acetaminophen/ Hydrocodone Bitart ([place] (5/325)) 1 tab Q4H PRN PO PAIN LEVEL 4 -7 Last administered on 08/03/17 16:41; Admin Dose 1 TAB; Start 07/21/17 at 23:30 Famotidine (Pepcid) 20 mg BID PO Last administered on 08/03/17 09:37; Admin Dose 20 MG; Start 07/26/17 at 21:00; Status Future Hold Metoprolol Tartrate (Lopressor) 12.5 mg BID PO Last administered on 08/08/17 09:13; Admin Dose 12.5 MG; Start 07/27/17 at 21:00 Docusate Sodium (Colace) 100 mg BID PO Last administered on 08/07/17 20:31; Admin Dose 100 MG; Start 07/28/17 at 21:00 Polyethylene Glycol (Miralax) 17 gm PRN PRN PO CONSTIPATION Last administered on 07/31/17 20:26; Admin Dose 17 GM; Start 07/28/17 at 15:00 Senna (Senokot) 1 tab DAILY PRN PO CONSTIPATION Last administered on 20:25; Admin Dose 1 TAB; Start 07/30/17 at 17:00 Mineral Oil (Mineral Oil) 30 ml BID PO Last administered on 08/05/17 08:57; Admin Dose 30 ML; Start 07/30/17 at 21:00 Furosemide (Lasix) 20 mg DAILY IV Last administered on 08/08/17 09:12; Admin Dose 20 MG; Start 08/01/17 at 09:00 Lorazepam (Ativan) 0.5 mg Q6H PRN IV ANXIETY Last administered on 08/04/17 08 :52; Admin Dose 0.5 MG; Start 08/01/17 at 19:00 Fentanyl (Sublimaze) 25 mcg Q1H PRN IV PAIN Last administered on 08/07/17 15: 32; Admin Dose 25 MCG; Start 08/04/17 at 00:00 Metoprolol Tartrate (Lopressor) 5 mg Q4H PRN IV ELEVATED HEART RATE; Start at 04:00 Famotidine 20 mg 20 mg BID IV Last administered on 08/08/17 09:12; Admin Dose 20 MG; Start 08/04/17 at 09:00 Sodium Chloride (NS) 1,000 ml @ 50 mls/hr Q20H IV Last administered on 19:01; Admin Dose 50 MLS/HR; Start 08/04/17 at 04:30 Levalbuterol (Xopenex Neb) 0.63 mg Q6H PRN HHN SHORTNESS OF BREATH; Start 08/06 at 14:00 Acetaminophen/ Hydrocodone Bitart ([place] (5/325)) 2 tab Q4H PRN PO PAIN LEVEL 6 -10; Start 08/06/17 at 08:00 Lactobacillus Acidophilus/ Rhamnosus (Culturelle) 1 cap BID PO Last administered on 08/08/17 09:13; Admin Dose 1 CAP; Start 08/07/17 at 21:00 Apixaban (Eliquis) 10 mg BID PO Last administered on 08/08/17 11:14; Admin Dose 10 MG; Start 08/08/17 at 09:00 Aspirin (Halfprin) 81 mg DAILY PO Last administered on 08/08/17 09:15; Admin Dose 81 MG; Start 08/08/17 at 09:00 Azithromycin (Zithromax) 250 mg DAILY PO Last administered on 08/08/17 09:15; Admin Dose 250 MG; Start 08/08/17 at 09:00; Stop 08/12/17 at 12:00 Clopidogrel Bisulfate (plaVIX) 75 mg DAILY PO ; Start 08/09/17 at 09:00 LISETTE MEDINA Aug 08, 2017 13:42
--- NOTE | 2017-08-08 14:40 | CONS ---
Date/Time of Note Date/Time of Note DATE: 08/08/17 TIME: 14:37 Assessment/Plan Assessment/Plan Chief Complaint/Hosp Course IMPRESSION: 1. Preoperative evaluation prior to possible surgical vascular intervention.- negative trop x3/ NL EF by echo with no sig valve abnl 2. Hypertension. 3. Dyslipidemia. 4. Abnormal electrocardiogram with nonspecific ST and T-wave abnormalities. 5. Left lower extremity deep venous thrombosis status post inferior vena cava filter. Now with recurrent LE thrombosis requiring rep-eat lysis/thrombectomy and placement of perfusion catheter 6. Chronic obstructive pulmonary disease. 7. 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 Tachycardia-? S Tach recurrent after recurrent thrombosis requiring repeat thromobolysis/thrombectomy-Now improved 9. Lung mass on CT Recc: -Back in ICU. Will follow HR closely on tele monitoing and is to be transferred to tele -Continue heparin -Continue statin -Follow volume status closely and continue gentle lasix diuresis -Continue low dose BB as tolerated -Follow LE exam closely with ongoing vascular surgery treatment and evaluation -? further eval opf chest mass Problems: Consultation Date/Type/Reason Admit Date/Time Jul 21, 2017 at 23:03 Initial Consult Date 07/23/17 Type of Consultation: cardiology Reason for Consultation CHF/tachycardia Referring Provider: SEBAS LALA MD Exam/Review of Systems Vital Signs Vitals Vital Signs Date Time Temp Pulse Resp B/P Pulse Ox O2 Delivery O2 Flow Rate FiO2 08/08/17 12:00 78 08/08/17 11:00 28 113/75 98 Room Air 08/08/17 08:00 98.6 08/07/17 20:43 2.0 08/05/17 09:32 21 Intake and Output 08/07/17 08/07/17 08/08/17 15:00 23:00 07:00 Intake Total 786 ml 636 ml 536 ml Output Total 1250 ml 850 ml 1100 ml Balance -464 ml -214 ml -564 ml Exam Review of Systems: CONSTITUTIONAL: No fevers, chills. PULMONARY: No sob CARDIOVASCULAR: No chest pain/palpitations GASTROINTESTINAL: No nausea/vomiting. GENITOURINARY: No hematuria/dysuria. MUSCULOSKELETAL: mild pain in legs. PSYCHIATRIC: The patient denies depression. NEUROLOGIC: No weakness Constitutional: alert Psych: no complaints Head: normocephalic ENMT: mucosa pink and moist Neck: jvd (9 cm water), supple Respiratory: diminished breath sounds (at bases/B) Cardiovascular: regular rate and rhythm Gastrointestinal: non-tender, soft Musculoskeletal: muscle weakness (mild generalized) Extremities: pitting pedal edema (R>L covered by EULALIA wrap) Neurological: other (No focal deficits) Results Result Diagram: 08/08/17 0608 08/08/17 0608 Results 24 hrs Laboratory Tests Test 08/07/17 17:25 08/08/17 06:08 08/08/17 10:05 White Blood Count 8.9 7.0 # Red Blood Count 3.28 L 3.21 L Hemoglobin 9.0 L 8.5 L Hematocrit 28.1 L 27.7 L Mean Corpuscular Volume 85.7 86.3 Mean Corpuscular Hemoglobin 27.4 L 26.5 L Mean Corpuscular Hemoglobin Concent 32.0 30.7 L Red Cell Distribution Width 15.1 H 15.4 H Platelet Count 257 262 Mean Platelet Volume 9.1 9.5 Neutrophils % 73.5 65.2 Lymphocytes % 13.4 L 17.2 Monocytes % 9.0 10.2 Eosinophils % 2.6 5.6 Basophils % 0.3 0.4 Nucleated Red Blood Cells % 0.0 0.0 Neutrophils # 6.5 4.6 Lymphocytes # 1.2 1.2 Monocytes # 0.8 0.7 Eosinophils # 0.2 0.4 Basophils # 0.0 0.0 Nucleated Red Blood Cells # 0.0 0.0 Prothrombin Time 17.9 H Prothrombin Time Ratio 1.4 INR International Normalized Ratio 1.47 Activated Partial Thromboplast Time 96.0 *H > 180.0 *H 42.3 H Fibrinogen 288.0 Sodium Level 137 141 Potassium Level 3.8 3.7 Chloride Level 103 105 Carbon Dioxide Level 26 28 Anion Gap 12 12 Blood Urea Nitrogen 11 10 Creatinine 0.66 0.70 Glucose Level 87 85 Calcium Level 8.2 L 8.2 L Phosphorus Level 3.7 Magnesium Level 1.9 Medications Medications Current Medications Dutasteride (Avodart) 0.5 mg DAILY PO Last administered on 08/08/17t 09:13; Admin Dose 0.5 MG; Start 07/22/17 at 09:00 Gabapentin (Neurontin) 300 mg QHS PO Last administered on 08/07/17 20:30; Admin Dose 300 MG; Start 07/22/17 at 21:00 Salmeterol Xinafoate/ Fluticasone (Advair 250/50 Diskus) 1 inh BID INH Last administered on 08/08/17 09:16; Admin Dose 1 INH; Start 07/22/17 at 09:00 Atorvastatin Calcium (Lipitor) 10 mg QAM PO Last administered on 08/08/17 09: 13; Admin Dose 10 MG; Start 07/22/17 at 09:00 Acetaminophen (Tylenol Tab) 650 mg QID PRN PO PAIN LEVEL 1-5; Start 07/21/17 at 23:30 Ondansetron HCl (Zofran Inj) 4 mg Q6H PRN IV NAUSEA AND/OR VOMITING Last administered on 08/04/17 02:15; Admin Dose 4 MG; Start 07/21/17 at 23:30 Acetaminophen/ Hydrocodone Bitart ([place] (5/325)) 1 tab Q4H PRN PO PAIN LEVEL 4 -7 Last administered on 08/03/17 16:41; Admin Dose 1 TAB; Start 07/21/17 at 23:30 Famotidine (Pepcid) 20 mg BID PO Last administered on 08/03/17 09:37; Admin Dose 20 MG; Start 07/26/17 at 21:00; Status Future Hold Metoprolol Tartrate (Lopressor) 12.5 mg BID PO Last administered on 08/08/17 09:13; Admin Dose 12.5 MG; Start 07/27/17 at 21:00 Docusate Sodium (Colace) 100 mg BID PO Last administered on 08/07/17 20:31; Admin Dose 100 MG; Start 07/28/17 at 21:00 Polyethylene Glycol (Miralax) 17 gm PRN PRN PO CONSTIPATION Last administered on 07/31/17 20:26; Admin Dose 17 GM; Start 07/28/17 at 15:00 Senna (Senokot) 1 tab DAILY PRN PO CONSTIPATION Last administered on 20:25; Admin Dose 1 TAB; Start 07/30/17 at 17:00 Mineral Oil (Mineral Oil) 30 ml BID PO Last administered on 08/05/17 08:57; Admin Dose 30 ML; Start 07/30/17 at 21:00 Furosemide (Lasix) 20 mg DAILY IV Last administered on 08/08/17 09:12; Admin Dose 20 MG; Start 08/01/17 at 09:00 Lorazepam (Ativan) 0.5 mg Q6H PRN IV ANXIETY Last administered on 08/04/17 08 :52; Admin Dose 0.5 MG; Start 08/01/17 at 19:00 Fentanyl (Sublimaze) 25 mcg Q1H PRN IV PAIN Last administered on 08/07/17 15: 32; Admin Dose 25 MCG; Start 08/04/17 at 00:00 Metoprolol Tartrate (Lopressor) 5 mg Q4H PRN IV ELEVATED HEART RATE; Start at 04:00 Famotidine 20 mg 20 mg BID IV Last administered on 08/08/17 09:12; Admin Dose 20 MG; Start 08/04/17 at 09:00 Sodium Chloride (NS) 1,000 ml @ 50 mls/hr Q20H IV Last administered on 19:01; Admin Dose 50 MLS/HR; Start 08/04/17 at 04:30 Levalbuterol (Xopenex Neb) 0.63 mg Q6H PRN HHN SHORTNESS OF BREATH; Start 08/06 at 14:00 Acetaminophen/ Hydrocodone Bitart ([place] (5/325)) 2 tab Q4H PRN PO PAIN LEVEL 6 -10; Start 08/06/17 at 08:00 Lactobacillus Acidophilus/ Rhamnosus (Culturelle) 1 cap BID PO Last administered on 08/08/17 09:13; Admin Dose 1 CAP; Start 08/07/17 at 21:00 Apixaban (Eliquis) 10 mg BID PO Last administered on 08/08/17 11:14; Admin Dose 10 MG; Start 08/08/17 at 09:00 Aspirin (Halfprin) 81 mg DAILY PO Last administered on 08/08/17 09:15; Admin Dose 81 MG; Start 08/08/17 at 09:00 Azithromycin (Zithromax) 250 mg DAILY PO Last administered on 08/08/17 09:15; Admin Dose 250 MG; Start 08/08/17 at 09:00; Stop 08/12/17 at 12:00 Clopidogrel Bisulfate (plaVIX) 75 mg DAILY PO ; Start 08/09/17 at 09:00 AIMEE LANDEROS Aug 08, 2017 14:40
[2017-08-08] MEDS: GABAPENTIN 300 MG CAP PO SCH (21:02)
[2017-08-08] MEDS: ZOLPIDEM 5 MG TAB PO PRN (21:07)
[2017-08-09] VITALS (12 sets, daily range): BP systolic 110–125; BP diastolic 57–69; PULSE 87–108; RESP 16–20
[2017-08-09 08:41] LABS: BASOPHILS % 0.5 % (0.0-2.0); EOSINOPHILS # 0.4 10^3/ul (0.0-0.5); EOSINOPHILS % 4.3 % (0.0-7.0); HEMATOCRIT 30.3 % (42.0-52.0); HEMOGLOBIN 9.5 g/dl (14.0-18.0); LYMPHOCYTES % 12.9 % (15.0-51.0); MEAN CORPUSCULAR HEMOGLOBIN 27.3 pg (29.0-33.0); MEAN CORPUSCULAR HGB CONC 31.4 g/dl (32.0-37.0); MEAN CORPUSCULAR VOLUME 87.1 fl (82.0-101.0); MEAN PLATELET VOLUME 9.2 fl (7.4-10.4); MONOCYTE # 0.8 10^3/ul (0.3-0.9); MONOCYTES % 9.6 % (0.0-11.0); NEUTROPHIL # 5.8 10^3/ul (1.6-7.5); NEUTROPHILS % 71.8 % (39.0-77.0); PLATELET COUNT 304 10^3/UL (140-415); RED BLOOD COUNT 3.48 10^6/ul (4.70-6.10); RED CELL DISTRIBUTION WIDTH 15.2 % (11.5-14.5); WHITE BLOOD COUNT 8.1 10^3/ul (4.8-10.8)
[2017-08-09] MEDS: MINERAL OIL 30ML CUP PO SCH ×2 (09:00→21:00)
[2017-08-09] MEDS: SALMETEROL/FLUTICASONE 250/50 INHA INH SCH ×2 (09:00→21:00)
[2017-08-09 09:01] LABS: CREATININE 0.71 mg/dl (0.61-1.24); POTASSIUM 4.2 mmol/L (3.5-5.1)
[2017-08-09] MEDS: DOCUSATE SODIUM 100 MG CAP PO SCH ×2 (10:05→21:28)
[2017-08-09] MEDS: ATORVASTATIN 10 MG TAB PO SCH (10:06)
[2017-08-09] MEDS: APIXABAN 5 MG TABLET PO SCH ×2 (10:06→21:28)
[2017-08-09] MEDS: ASPIRIN (EC) 81 MG TAB PO SCH (10:06)
[2017-08-09] MEDS: LACTOBACILLUS RHAMNOSUS CAP PO SCH ×2 (10:07→21:27)
[2017-08-09] MEDS: DUTASTERIDE 0.5 MG CAP PO SCH (10:07)
[2017-08-09] MEDS: METOPROLOL 25 MG TAB PO SCH ×2 (10:07→21:29)
[2017-08-09] MEDS: FAMOTIDINE 20 MG INJ IV SCH ×2 (10:09→21:27)
[2017-08-09] MEDS: FUROSEMIDE 20 MG INJ IV SCH (10:09)
[2017-08-09] MEDS: CLOPIDOGREL 75 MG TAB PO SCH (10:21)
--- NOTE | 2017-08-09 13:06 | CONS ---
Date/Time of Note Date/Time of Note DATE: 08/09/17 TIME: 13:05 Assessment/Plan Assessment/Plan Chief Complaint/Hosp Course - Leukocytosis - likely reactive 2/2 recurrent DVT - resolved; PCT 0.14 - Occlusive DVT throughout RLE per venous doppler 08/03/2017; s/p repeat angiography 08/04/2017 - Right femoral popliteal aneurysm and BLE DVT and inferior vena cava thrombosis , S/p R fem-pop stent grafting and aortoiliac angiogram and S/p BLE thrombectomy (pt had multiple lysis checks and thrombectomies with latest on 08/07/2017) - H/o DVT s/p IVC filter - RUL mass-like lesion concerning for malignancy/Pulmonary nodule with possible PNA per pulmonary - declining biopsy, s/p empiric azithromycin - Bilateral adrenal nodules concerning for malignancy per CT - COPD/emphysema - Hypercoagulation - Dyslipidemia - Debility d/t prolonged hospitalization Recommendations: - monitor closely off antibiotics - trend WBC - pending: cocci, crypto - continue probiotics Problems: Consultation Date/Type/Reason Admit Date/Time Jul 21, 2017 at 23:03 Initial Consult Date 07/23/17 Type of Consultation: id Referring Provider: SEBAS LALA MD Exam/Review of Systems Vital Signs Vitals Vital Signs Date Time Temp Pulse Resp B/P Pulse Ox O2 Delivery O2 Flow Rate FiO2 08/09/17 12:10 88 08/09/17 11:40 97.9 20 119/69 98 08/08/17 22:30 Room Air 08/08/17 18:42 21 08/07/17 20:43 2.0 Intake and Output 08/08/17 08/08/17 08/09/17 15:00 23:00 07:00 Intake Total 883.5 ml 220 ml 200 ml Output Total 670 ml 650 ml 750 ml Balance 213.5 ml -430 ml -550 ml Exam Constitutional: alert, oriented, well developed Psych: nl mood/affect, no complaints Head: atraumatic, normocephalic Eyes: EOMI, PERRL, nl conjunctiva, nl lids, nl sclera Respiratory: clear to auscultation, normal air movement Cardiovascular: nl pulses, regular rate and rhythm Gastrointestinal: nl liver, spleen, non-tender, soft Extremities: other (warm rle , no erythmea, no tenderness) Results Result Diagram: 08/09/17 0814 08/09/17 0814 Results 24 hrs Laboratory Tests Test 08/09/17 08:14 White Blood Count 8.1 Red Blood Count 3.48 L Hemoglobin 9.5 L Hematocrit 30.3 L Mean Corpuscular Volume 87.1 Mean Corpuscular Hemoglobin 27.3 L Mean Corpuscular Hemoglobin Concent 31.4 L Red Cell Distribution Width 15.2 H Platelet Count 304 Mean Platelet Volume 9.2 Neutrophils % 71.8 Lymphocytes % 12.9 L Monocytes % 9.6 Eosinophils % 4.3 Basophils % 0.5 Nucleated Red Blood Cells % 0.0 Neutrophils # 5.8 Lymphocytes # 1.0 Monocytes # 0.8 Eosinophils # 0.4 Basophils # 0.0 Nucleated Red Blood Cells # 0.0 Sodium Level 139 Potassium Level 4.2 Chloride Level 103 Carbon Dioxide Level 28 Anion Gap 12 Blood Urea Nitrogen 9 Creatinine 0.71 Glucose Level 79 Calcium Level 9.0 Medications Medications Current Medications Dutasteride (Avodart) 0.5 mg DAILY PO Last administered on 08/09/17 10:07; Admin Dose 0.5 MG; Start 07/22/17 at 09:00 Gabapentin (Neurontin) 300 mg QHS PO Last administered on 08/08/17 21:02; Admin Dose 300 MG; Start 07/22/17 at 21:00 Salmeterol Xinafoate/ Fluticasone (Advair 250/50 Diskus) 1 inh BID INH Last administered on 08/08/17 09:16; Admin Dose 1 INH; Start 07/22/17 at 09:00 Atorvastatin Calcium (Lipitor) 10 mg QAM PO Last administered on 08/09/17 10: 06; Admin Dose 10 MG; Start 07/22/17 at 09:00 Acetaminophen (Tylenol Tab) 650 mg QID PRN PO PAIN LEVEL 1-5; Start 07/21/17 at 23:30 Ondansetron HCl (Zofran Inj) 4 mg Q6H PRN IV NAUSEA AND/OR VOMITING Last administered on 08/04/17 02:15; Admin Dose 4 MG; Start 07/21/17 at 23:30 Acetaminophen/ Hydrocodone Bitart ([place] (5/325)) 1 tab Q4H PRN PO PAIN LEVEL 4 -7 Last administered on 08/03/17 16:41; Admin Dose 1 TAB; Start 07/21/17 at 23:30 Metoprolol Tartrate (Lopressor) 12.5 mg BID PO Last administered on 08/09/17 10:07; Admin Dose 12.5 MG; Start 07/27/17 at 21:00 Docusate Sodium (Colace) 100 mg BID PO Last administered on 08/09/17 10:05; Admin Dose 100 MG; Start 07/28/17 at 21:00 Polyethylene Glycol (Miralax) 17 gm PRN PRN PO CONSTIPATION Last administered on 07/31/17 20:26; Admin Dose 17 GM; Start 07/28/17 at 15:00 Senna (Senokot) 1 tab DAILY PRN PO CONSTIPATION Last administered on 20:25; Admin Dose 1 TAB; Start 07/30/17 at 17:00 Mineral Oil (Mineral Oil) 30 ml BID PO Last administered on 08/05/17 08:57; Admin Dose 30 ML; Start 07/30/17 at 21:00 Furosemide (Lasix) 20 mg DAILY IV Last administered on 08/09/17 10:09; Admin Dose 20 MG; Start 08/01/17 at 09:00 Lorazepam (Ativan) 0.5 mg Q6H PRN IV ANXIETY Last administered on 08/04/17 08 :52; Admin Dose 0.5 MG; Start 08/01/17 at 19:00 Metoprolol Tartrate (Lopressor) 5 mg Q4H PRN IV ELEVATED HEART RATE; Start at 04:00 Famotidine (Pepcid Iv) 20 mg BID IV Last administered on 08/09/17 10:09; Admin Dose 20 MG; Start 08/04/17 at 09:00 Levalbuterol (Xopenex Neb) 0.63 mg Q6H PRN HHN SHORTNESS OF BREATH; Start 08/06 at 14:00 Acetaminophen/ Hydrocodone Bitart ([place] (5/325)) 2 tab Q4H PRN PO PAIN LEVEL 6 -10; Start 08/06/17 at 08:00 Lactobacillus Acidophilus/ Rhamnosus (Culturelle) 1 cap BID PO Last administered on 08/09/17 10:07; Admin Dose 1 CAP; Start 08/07/17 at 21:00 Apixaban (Eliquis) 10 mg BID PO Last administered on 08/09/17 10:06; Admin Dose 10 MG; Start 08/08/17 at 09:00 Aspirin (Halfprin) 81 mg DAILY PO Last administered on 08/09/17 10:06; Admin Dose 81 MG; Start 08/08/17 at 09:00 Azithromycin (Zithromax) 250 mg DAILY PO Last administered on 08/08/17 09:15; Admin Dose 250 MG; Start 08/08/17 at 09:00; Stop 08/12/17 at 12:00 Clopidogrel Bisulfate (plaVIX) 75 mg DAILY PO Last administered on 08/09/17 10 :21; Admin Dose 75 MG; Start 08/09/17 at 09:00 DESIREE FERGUSON MD Aug 09, 2017 13:06
[2017-08-09] MEDS: AZITHROMYCIN 250 MG TAB PO SCH (14:11)
--- NOTE | 2017-08-09 14:42 | CONS ---
Date/Time of Note Date/Time of Note DATE: 08/09/17 TIME: 14:41 Consult Date/Type/Reason Admit Date/Time Jul 21, 2017 at 23:03 Initial Consult Date 08/04/17 Type of Consultation: Pulm Ordering Provider: SEBAS LALA MD Subjective No SOB Objective Vital Signs Date Time Temp Pulse Resp B/P Pulse Ox O2 Delivery O2 Flow Rate FiO2 08/09/17 12:10 88 08/09/17 11:40 97.9 20 119/69 98 08/08/17 22:30 Room Air 08/08/17 18:42 21 08/07/17 20:43 2.0 Intake and Output 08/08/17 08/08/17 08/09/17 15:00 23:00 07:00 Intake Total 883.5 ml 220 ml 200 ml Output Total 670 ml 650 ml 750 ml Balance 213.5 ml -430 ml -550 ml Exam HEENT: Neck supple; no JVD; no LAD CVS: RRR, S1 and S2 CHEST: Clear ABD: Soft, NT, + BS EXT: No c/c; ischemic LE Results/Medications Result Diagram: 08/09/1714 08/09/1714 Results 24 hrs Laboratory Tests Test 08/09/17 08:14 White Blood Count 8.1 Red Blood Count 3.48 L Hemoglobin 9.5 L Hematocrit 30.3 L Mean Corpuscular Volume 87.1 Mean Corpuscular Hemoglobin 27.3 L Mean Corpuscular Hemoglobin Concent 31.4 L Red Cell Distribution Width 15.2 H Platelet Count 304 Mean Platelet Volume 9.2 Neutrophils % 71.8 Lymphocytes % 12.9 L Monocytes % 9.6 Eosinophils % 4.3 Basophils % 0.5 Nucleated Red Blood Cells % 0.0 Neutrophils # 5.8 Lymphocytes # 1.0 Monocytes # 0.8 Eosinophils # 0.4 Basophils # 0.0 Nucleated Red Blood Cells # 0.0 Sodium Level 139 Potassium Level 4.2 Chloride Level 103 Carbon Dioxide Level 28 Anion Gap 12 Blood Urea Nitrogen 9 Creatinine 0.71 Glucose Level 79 Calcium Level 9.0 Medications Current Medications Dutasteride (Avodart) 0.5 mg DAILY PO Last administered on 08/09/17t 10:07; Admin Dose 0.5 MG; Start 07/22/17 at 09:00 Gabapentin (Neurontin) 300 mg QHS PO Last administered on 08/08/17 21:02; Admin Dose 300 MG; Start 07/22/17 at 21:00 Salmeterol Xinafoate/ Fluticasone (Advair 250/50 Diskus) 1 inh BID INH Last administered on 08/08/17 09:16; Admin Dose 1 INH; Start 07/22/17 at 09:00 Atorvastatin Calcium (Lipitor) 10 mg QAM PO Last administered on 08/09/17 10: 06; Admin Dose 10 MG; Start 07/22/17 at 09:00 Acetaminophen (Tylenol Tab) 650 mg QID PRN PO PAIN LEVEL 1-5; Start 07/21/17 at 23:30 Ondansetron HCl (Zofran Inj) 4 mg Q6H PRN IV NAUSEA AND/OR VOMITING Last administered on 08/04/17 02:15; Admin Dose 4 MG; Start 07/21/17 at 23:30 Acetaminophen/ Hydrocodone Bitart ([place] (5/325)) 1 tab Q4H PRN PO PAIN LEVEL 4 -7 Last administered on 08/03/17 16:41; Admin Dose 1 TAB; Start 07/21/17 at 23:30 Metoprolol Tartrate (Lopressor) 12.5 mg BID PO Last administered on 08/09/17 10:07; Admin Dose 12.5 MG; Start 07/27/17 at 21:00 Docusate Sodium (Colace) 100 mg BID PO Last administered on 08/09/17 10:05; Admin Dose 100 MG; Start 07/28/17 at 21:00 Polyethylene Glycol (Miralax) 17 gm PRN PRN PO CONSTIPATION Last administered on 07/31/17 20:26; Admin Dose 17 GM; Start 07/28/17 at 15:00 Senna (Senokot) 1 tab DAILY PRN PO CONSTIPATION Last administered on 20:25; Admin Dose 1 TAB; Start 07/30/17 at 17:00 Mineral Oil (Mineral Oil) 30 ml BID PO Last administered on 08/05/17 08:57; Admin Dose 30 ML; Start 07/30/17 at 21:00 Furosemide (Lasix) 20 mg DAILY IV Last administered on 08/09/17 10:09; Admin Dose 20 MG; Start 08/01/17 at 09:00 Lorazepam (Ativan) 0.5 mg Q6H PRN IV ANXIETY Last administered on 08/04/17 08 :52; Admin Dose 0.5 MG; Start 08/01/17 at 19:00 Metoprolol Tartrate (Lopressor) 5 mg Q4H PRN IV ELEVATED HEART RATE; Start at 04:00 Famotidine (Pepcid Iv) 20 mg BID IV Last administered on 08/09/17 10:09; Admin Dose 20 MG; Start 08/04/17 at 09:00 Levalbuterol (Xopenex Neb) 0.63 mg Q6H PRN HHN SHORTNESS OF BREATH; Start 08/06 at 14:00 Acetaminophen/ Hydrocodone Bitart ([place] (5/325)) 2 tab Q4H PRN PO PAIN LEVEL 6 -10; Start 08/06/17 at 08:00 Lactobacillus Acidophilus/ Rhamnosus (Culturelle) 1 cap BID PO Last administered on 08/09/17 10:07; Admin Dose 1 CAP; Start 08/07/17 at 21:00 Apixaban (Eliquis) 10 mg BID PO Last administered on 08/09/17 10:06; Admin Dose 10 MG; Start 08/08/17 at 09:00 Aspirin (Halfprin) 81 mg DAILY PO Last administered on 08/09/17 10:06; Admin Dose 81 MG; Start 08/08/17 at 09:00 Azithromycin (Zithromax) 250 mg DAILY PO Last administered on 08/09/17 14:11; Admin Dose 250 MG; Start 08/08/17 at 09:00; Stop 08/12/17 at 12:00 Clopidogrel Bisulfate (plaVIX) 75 mg DAILY PO Last administered on 08/09/17 10 :21; Admin Dose 75 MG; Start 08/09/17 at 09:00 Assessment/Plan Additional Assessment/Plan IMP: 1. RUL peripheral pulm nodule RECS: 1. Outpatient PFT's, PET, and possible CT-guided bx DIANA HUGHES MD Aug 09, 2017 14:42
--- NOTE | 2017-08-09 15:26 | CONS ---
Date/Time of Note Date/Time of Note DATE: 08/09/17 TIME: 15:24 Assessment/Plan Assessment/Plan Additional Assessment/Plan 1. DVT s/p declotting 2. Hypertension. 3. Dyslipidemia. 4. Chronic obstructive pulmonary disease. 5. Popliteal artery aneurysm 6. Lung mass on CT Continue Metoprolol On eliquis Continue ASA adn Plavix Continue Lipitor Continue Antibiotics Continue GI and DVT Prophylaxis Consultation Date/Type/Reason Admit Date/Time Jul 21, 2017 at 23:03 Constitutional: requiring IVF Eyes: no complaints ENT: no complaints Respiratory: no complaints Cardiovascular: no complaints Gastrointestinal: no complaints Genitourinary: no complaints Musculoskeletal: swelling Skin: no complaints Neurologic: no complaints Psychological: nl mood/affect, no complaints Social History Alcohol Use: none Smoking Status: Former smoker Drug Use: marijuana Exam/Review of Systems Vital Signs Vitals Vital Signs Date Time Temp Pulse Resp B/P Pulse Ox O2 Delivery O2 Flow Rate FiO2 08/09/17 12:10 88 08/09/17 11:40 97.9 20 119/69 98 08/08/17 22:30 Room Air 08/08/17 18:42 21 08/07/17 20:43 2.0 Intake and Output 08/08/17 08/08/17 08/09/17 15:00 23:00 07:00 Intake Total 883.5 ml 220 ml 200 ml Output Total 670 ml 650 ml 750 ml Balance 213.5 ml -430 ml -550 ml Exam Constitutional: alert, oriented Head: atraumatic, normocephalic Neck: non-tender, supple Respiratory: clear to auscultation Cardiovascular: regular rate and rhythm Gastrointestinal: nl liver, spleen, soft Extremities: other (feeble pulses) Results Result Diagram: 08/09/1714 08/09/17 0814 Results 24 hrs Laboratory Tests Test 08/09/17 08:14 White Blood Count 8.1 Red Blood Count 3.48 L Hemoglobin 9.5 L Hematocrit 30.3 L Mean Corpuscular Volume 87.1 Mean Corpuscular Hemoglobin 27.3 L Mean Corpuscular Hemoglobin Concent 31.4 L Red Cell Distribution Width 15.2 H Platelet Count 304 Mean Platelet Volume 9.2 Neutrophils % 71.8 Lymphocytes % 12.9 L Monocytes % 9.6 Eosinophils % 4.3 Basophils % 0.5 Nucleated Red Blood Cells % 0.0 Neutrophils # 5.8 Lymphocytes # 1.0 Monocytes # 0.8 Eosinophils # 0.4 Basophils # 0.0 Nucleated Red Blood Cells # 0.0 Sodium Level 139 Potassium Level 4.2 Chloride Level 103 Carbon Dioxide Level 28 Anion Gap 12 Blood Urea Nitrogen 9 Creatinine 0.71 Glucose Level 79 Calcium Level 9.0 Medications Medications Current Medications Dutasteride (Avodart) 0.5 mg DAILY PO Last administered on 08/09/17 10:07; Admin Dose 0.5 MG; Start 07/22/17 at 09:00 Gabapentin (Neurontin) 300 mg QHS PO Last administered on 08/08/17 21:02; Admin Dose 300 MG; Start 07/22/17 at 21:00 Salmeterol Xinafoate/ Fluticasone (Advair 250/50 Diskus) 1 inh BID INH Last administered on 08/08/17 09:16; Admin Dose 1 INH; Start 07/22/17 at 09:00 Atorvastatin Calcium (Lipitor) 10 mg QAM PO Last administered on 08/09/17 10: 06; Admin Dose 10 MG; Start 07/22/17 at 09:00 Acetaminophen (Tylenol Tab) 650 mg QID PRN PO PAIN LEVEL 1-5; Start 07/21/17 at 23:30 Ondansetron HCl (Zofran Inj) 4 mg Q6H PRN IV NAUSEA AND/OR VOMITING Last administered on 08/04/17 02:15; Admin Dose 4 MG; Start 07/21/17 at 23:30 Acetaminophen/ Hydrocodone Bitart ([place] (5/325)) 1 tab Q4H PRN PO PAIN LEVEL 4 -7 Last administered on 08/03/17 16:41; Admin Dose 1 TAB; Start 07/21/17 at 23:30 Metoprolol Tartrate (Lopressor) 12.5 mg BID PO Last administered on 08/09/17 10:07; Admin Dose 12.5 MG; Start 07/27/17 at 21:00 Docusate Sodium (Colace) 100 mg BID PO Last administered on 08/09/17 10:05; Admin Dose 100 MG; Start 07/28/17 at 21:00 Polyethylene Glycol (Miralax) 17 gm PRN PRN PO CONSTIPATION Last administered on 07/31/17 20:26; Admin Dose 17 GM; Start 07/28/17 at 15:00 Senna (Senokot) 1 tab DAILY PRN PO CONSTIPATION Last administered on 20:25; Admin Dose 1 TAB; Start 07/30/17 at 17:00 Mineral Oil (Mineral Oil) 30 ml BID PO Last administered on 08/05/17 08:57; Admin Dose 30 ML; Start 07/30/17 at 21:00 Furosemide (Lasix) 20 mg DAILY IV Last administered on 08/09/17 10:09; Admin Dose 20 MG; Start 08/01/17 at 09:00 Lorazepam (Ativan) 0.5 mg Q6H PRN IV ANXIETY Last administered on 08/04/17 08 :52; Admin Dose 0.5 MG; Start 08/01/17 at 19:00 Metoprolol Tartrate (Lopressor) 5 mg Q4H PRN IV ELEVATED HEART RATE; Start at 04:00 Famotidine (Pepcid Iv) 20 mg BID IV Last administered on 08/09/17 10:09; Admin Dose 20 MG; Start 08/04/17 at 09:00 Levalbuterol (Xopenex Neb) 0.63 mg Q6H PRN HHN SHORTNESS OF BREATH; Start 08/06 at 14:00 Acetaminophen/ Hydrocodone Bitart ([place] (5/325)) 2 tab Q4H PRN PO PAIN LEVEL 6 -10; Start 08/06/17 at 08:00 Lactobacillus Acidophilus/ Rhamnosus (Culturelle) 1 cap BID PO Last administered on 08/09/17 10:07; Admin Dose 1 CAP; Start 08/07/17 at 21:00 Apixaban (Eliquis) 10 mg BID PO Last administered on 08/09/17 10:06; Admin Dose 10 MG; Start 08/08/17 at 09:00 Aspirin (Halfprin) 81 mg DAILY PO Last administered on 08/09/17 10:06; Admin Dose 81 MG; Start 08/08/17 at 09:00 Azithromycin (Zithromax) 250 mg DAILY PO Last administered on 08/09/17 14:11; Admin Dose 250 MG; Start 08/08/17 at 09:00; Stop 08/12/17 at 12:00 Clopidogrel Bisulfate (plaVIX) 75 mg DAILY PO Last administered on 08/09/17t 10 :21; Admin Dose 75 MG; Start 08/09/17 at 09:00 JANES DAVIS M.D. Aug 09, 2017 15:26
--- NOTE | 2017-08-09 15:44 | PN ---
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 Dr. Mendiola is following in vascular surgery consultation. status post heparin drip. Continue Eliquis, aspirin and Plavix. -Hypercoagulation work up is neg, Dr Amaya is following in hematology consultation. 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 Patient refused lung biopsy at this time. Dr Garay is following in pulmonology consultation. Continue Zithromax with this recommendation for follow-up CT in [address] as an outpatient and biopsy when he is comfortable. -COPD, continue Advair -Dyslipidemia -BPH Further recommendations based on clinical course. Plan of care discussed with Dr. Drake Subjective 24 Hr Interval Summary Free Text/Dictation afebrile, off Heparin drip. no bleeding from any orifices reported, cont to monitor, dw staff Respiratory: no complaints Cardiovascular: no complaints Gastrointestinal: no complaints Genitourinary: no complaints Musculoskeletal: other (BLE pain) Exam/Review of Systems Vital Signs Vitals Vital Signs Date Time Temp Pulse Resp B/P Pulse Ox O2 Delivery O2 Flow Rate FiO2 08/09/17 12:10 88 08/09/17 11:40 97.9 20 119/69 98 08/08/17 22:30 Room Air 08/08/17 18:42 21 08/07/17 20:43 2.0 Intake and Output 08/08/17 08/08/17 08/09/17 15:00 23:00 07:00 Intake Total 883.5 ml 220 ml 200 ml Output Total 670 ml 650 ml 750 ml Balance 213.5 ml -430 ml -550 ml Exam Constitutional: alert, well developed Respiratory: diminished breath sounds, normal air movement Cardiovascular: nl pulses, other (s1s2) Gastrointestinal: non-tender, soft Musculoskeletal: other Extremities: normal pulses Neurological: nl mental status, nl speech Results Result Diagram: 08/09/1714 08/09/17 0814 Results 24 hrs Laboratory Tests Test 08/09/17 08:14 White Blood Count 8.1 Red Blood Count 3.48 L Hemoglobin 9.5 L Hematocrit 30.3 L Mean Corpuscular Volume 87.1 Mean Corpuscular Hemoglobin 27.3 L Mean Corpuscular Hemoglobin Concent 31.4 L Red Cell Distribution Width 15.2 H Platelet Count 304 Mean Platelet Volume 9.2 Neutrophils % 71.8 Lymphocytes % 12.9 L Monocytes % 9.6 Eosinophils % 4.3 Basophils % 0.5 Nucleated Red Blood Cells % 0.0 Neutrophils # 5.8 Lymphocytes # 1.0 Monocytes # 0.8 Eosinophils # 0.4 Basophils # 0.0 Nucleated Red Blood Cells # 0.0 Sodium Level 139 Potassium Level 4.2 Chloride Level 103 Carbon Dioxide Level 28 Anion Gap 12 Blood Urea Nitrogen 9 Creatinine 0.71 Glucose Level 79 Calcium Level 9.0 Medications Medications Current Medications Dutasteride (Avodart) 0.5 mg DAILY PO Last administered on 08/09/17 10:07; Admin Dose 0.5 MG; Start 07/22/17 at 09:00 Gabapentin (Neurontin) 300 mg QHS PO Last administered on 08/08/17 21:02; Admin Dose 300 MG; Start 07/22/17 at 21:00 Salmeterol Xinafoate/ Fluticasone (Advair 250/50 Diskus) 1 inh BID INH Last administered on 08/08/17 09:16; Admin Dose 1 INH; Start 07/22/17 at 09:00 Atorvastatin Calcium (Lipitor) 10 mg QAM PO Last administered on 08/09/17 10: 06; Admin Dose 10 MG; Start 07/22/17 at 09:00 Acetaminophen (Tylenol Tab) 650 mg QID PRN PO PAIN LEVEL 1-5; Start 07/21/17 at 23:30 Ondansetron HCl (Zofran Inj) 4 mg Q6H PRN IV NAUSEA AND/OR VOMITING Last administered on 08/04/17 02:15; Admin Dose 4 MG; Start 07/21/17 at 23:30 Acetaminophen/ Hydrocodone Bitart ([place] (5/325)) 1 tab Q4H PRN PO PAIN LEVEL 4 -7 Last administered on 08/03/17 16:41; Admin Dose 1 TAB; Start 07/21/17 at 23:30 Metoprolol Tartrate (Lopressor) 12.5 mg BID PO Last administered on 08/09/17 10:07; Admin Dose 12.5 MG; Start 07/27/17 at 21:00 Docusate Sodium (Colace) 100 mg BID PO Last administered on 08/09/17 10:05; Admin Dose 100 MG; Start 07/28/17 at 21:00 Polyethylene Glycol (Miralax) 17 gm PRN PRN PO CONSTIPATION Last administered on 07/31/17 20:26; Admin Dose 17 GM; Start 07/28/17 at 15:00 Senna (Senokot) 1 tab DAILY PRN PO CONSTIPATION Last administered on 20:25; Admin Dose 1 TAB; Start 07/30/17 at 17:00 Mineral Oil (Mineral Oil) 30 ml BID PO Last administered on 08/05/17 08:57; Admin Dose 30 ML; Start 07/30/17 at 21:00 Furosemide (Lasix) 20 mg DAILY IV Last administered on 08/09/17 10:09; Admin Dose 20 MG; Start 08/01/17 at 09:00 Lorazepam (Ativan) 0.5 mg Q6H PRN IV ANXIETY Last administered on 08/04/17 08 :52; Admin Dose 0.5 MG; Start 08/01/17 at 19:00 Metoprolol Tartrate (Lopressor) 5 mg Q4H PRN IV ELEVATED HEART RATE; Start at 04:00 Famotidine (Pepcid Iv) 20 mg BID IV Last administered on 08/09/17 10:09; Admin Dose 20 MG; Start 08/04/17 at 09:00 Levalbuterol (Xopenex Neb) 0.63 mg Q6H PRN HHN SHORTNESS OF BREATH; Start 08/06 at 14:00 Acetaminophen/ Hydrocodone Bitart ([place] (5/325)) 2 tab Q4H PRN PO PAIN LEVEL 6 -10; Start 08/06/17 at 08:00 Lactobacillus Acidophilus/ Rhamnosus (Culturelle) 1 cap BID PO Last administered on 08/09/17 10:07; Admin Dose 1 CAP; Start 08/07/17 at 21:00 Apixaban (Eliquis) 10 mg BID PO Last administered on 08/09/17 10:06; Admin Dose 10 MG; Start 08/08/17 at 09:00 Aspirin (Halfprin) 81 mg DAILY PO Last administered on 08/09/17 10:06; Admin Dose 81 MG; Start 08/08/17 at 09:00 Azithromycin (Zithromax) 250 mg DAILY PO Last administered on 08/09/17 14:11; Admin Dose 250 MG; Start 08/08/17 at 09:00; Stop 08/12/17 at 12:00 Clopidogrel Bisulfate (plaVIX) 75 mg DAILY PO Last administered on 08/09/17 10 :21; Admin Dose 75 MG; Start 08/09/17 at 09:00 JOSIE CHENG Aug 09, 2017 15:44
[2017-08-09] MEDS: LORAZEPAM 2 MG INJ IV PRN ×2 (18:13→23:47)
[2017-08-09] MEDS: GABAPENTIN 300 MG CAP PO SCH (21:28)
[2017-08-09] MEDS: ZOLPIDEM 5 MG TAB PO PRN (23:47)
[2017-08-10] VITALS (11 sets, daily range): BP systolic 101–121; BP diastolic 54–77; PULSE 92–106; RESP 16–20
[2017-08-10 07:44] LABS: BASOPHIL # 0.1 10^3/ul (0.0-0.1); BASOPHILS % 0.6 % (0.0-2.0); EOSINOPHILS # 0.4 10^3/ul (0.0-0.5); EOSINOPHILS % 4.3 % (0.0-7.0); HEMOGLOBIN 8.7 g/dl (14.0-18.0); LYMPHOCYTES # 1.1 10^3/ul (0.8-2.9); LYMPHOCYTES % 13.2 % (15.0-51.0); MEAN CORPUSCULAR HGB CONC 31.1 g/dl (32.0-37.0); MEAN PLATELET VOLUME 9.4 fl (7.4-10.4); MONOCYTE # 0.8 10^3/ul (0.3-0.9); MONOCYTES % 10.1 % (0.0-11.0); NEUTROPHIL # 5.9 10^3/ul (1.6-7.5); NEUTROPHILS % 71.1 % (39.0-77.0); PLATELET COUNT 319 10^3/UL (140-415); RED BLOOD COUNT 3.22 10^6/ul (4.70-6.10); RED CELL DISTRIBUTION WIDTH 15.8 % (11.5-14.5); WHITE BLOOD COUNT 8.3 10^3/ul (4.8-10.8)
[2017-08-10 08:07] LABS: CALCIUM 8.5 mg/dl (8.4-10.2); CREATININE 0.7 mg/dl (0.61-1.24); POTASSIUM 3.7 mmol/L (3.5-5.1)
[2017-08-10] MEDS: MINERAL OIL 30ML CUP PO SCH ×2 (09:00→20:58)
[2017-08-10] MEDS: SALMETEROL/FLUTICASONE 250/50 INHA INH SCH ×2 (09:00→20:59)
[2017-08-10] MEDS: FAMOTIDINE 20 MG INJ IV SCH (09:27)
[2017-08-10] MEDS: FUROSEMIDE 20 MG INJ IV SCH (09:27)
[2017-08-10] MEDS: APIXABAN 5 MG TABLET PO SCH ×2 (09:27→20:55)
[2017-08-10] MEDS: LACTOBACILLUS RHAMNOSUS CAP PO SCH ×2 (09:28→20:58)
[2017-08-10] MEDS: DOCUSATE SODIUM 100 MG CAP PO SCH ×2 (09:28→20:57)
[2017-08-10] MEDS: ASPIRIN (EC) 81 MG TAB PO SCH (09:28)
[2017-08-10] MEDS: ATORVASTATIN 10 MG TAB PO SCH (09:28)
[2017-08-10] MEDS: CLOPIDOGREL 75 MG TAB PO SCH (09:29)
[2017-08-10] MEDS: AZITHROMYCIN 250 MG TAB PO SCH (09:29)
[2017-08-10] MEDS: DUTASTERIDE 0.5 MG CAP PO SCH (09:30)
[2017-08-10] MEDS: METOPROLOL 25 MG TAB PO SCH (09:30)
[2017-08-10] MEDS: LORAZEPAM 2 MG INJ IV PRN ×3 (09:38→22:05)
--- NOTE | 2017-08-10 11:28 | CONS ---
Date/Time of Note Date/Time of Note DATE: 08/10/17 TIME: 11:24 Assessment/Plan Assessment/Plan Additional Assessment/Plan 1. DVT s/p declotting 2. Hypertension. 3. Dyslipidemia. 4. Chronic obstructive pulmonary disease. 5. Popliteal artery aneurysm 6. Lung mass on CT Sinus tachycardia Increased Metoprolol Continue Lasix Continue eliquis Continue Plavix Continue Lipitor Continue GI and DVT Prophylaxis Consultation Date/Type/Reason Admit Date/Time Jul 21, 2017 at 23:03 Initial Consult Date 08/01/17 Type of Consultation: Pulm Referring Provider: SEBAS LALA MD Exam/Review of Systems Vital Signs Vitals Vital Signs Date Time Temp Pulse Resp B/P Pulse Ox O2 Delivery O2 Flow Rate FiO2 08/10/17 08:10 103 08/10/17 07:57 97.5 18 121/61 96 08/09/17 18:20 21 08/08/17 22:30 Room Air 08/07/17 20:43 2.0 Intake and Output 08/09/17 08/09/17 08/10/17 15:00 23:00 07:00 Intake Total 1100 ml Output Total 1450 ml Balance -350 ml Exam Constitutional: alert Head: normocephalic Neck: non-tender, supple Respiratory: clear to auscultation Cardiovascular: regular rate and rhythm Gastrointestinal: nl liver, spleen, non-tender, soft Extremities: normal pulses Results Result Diagram: 08/10/17 0702 08/10/17 0702 Results 24 hrs Laboratory Tests Test 08/10/17 07:02 White Blood Count 8.3 Red Blood Count 3.22 L Hemoglobin 8.7 L Hematocrit 28.0 L Mean Corpuscular Volume 87.0 Mean Corpuscular Hemoglobin 27.0 L Mean Corpuscular Hemoglobin Concent 31.1 L Red Cell Distribution Width 15.8 H Platelet Count 319 Mean Platelet Volume 9.4 Neutrophils % 71.1 Lymphocytes % 13.2 L Monocytes % 10.1 Eosinophils % 4.3 Basophils % 0.6 Nucleated Red Blood Cells % 0.0 Neutrophils # 5.9 Lymphocytes # 1.1 Monocytes # 0.8 Eosinophils # 0.4 Basophils # 0.1 Nucleated Red Blood Cells # 0.0 Sodium Level 139 Potassium Level 3.7 Chloride Level 103 Carbon Dioxide Level 29 Anion Gap 11 Blood Urea Nitrogen 10 Creatinine 0.70 Glucose Level 73 Calcium Level 8.5 Medications Medications Current Medications Dutasteride (Avodart) 0.5 mg DAILY PO Last administered on 08/10/17 09:30; Admin Dose 0.5 MG; Start 07/22/17 at 09:00 Gabapentin (Neurontin) 300 mg QHS PO Last administered on 08/09/17 21:28; Admin Dose 300 MG; Start 07/22/17 at 21:00 Salmeterol Xinafoate/ Fluticasone (Advair 250/50 Diskus) 1 inh BID INH Last administered on 08/08/17 09:16; Admin Dose 1 INH; Start 07/22/17 at 09:00 Atorvastatin Calcium (Lipitor) 10 mg QAM PO Last administered on 08/10/17 09: 28; Admin Dose 10 MG; Start 07/22/17 at 09:00 Acetaminophen (Tylenol Tab) 650 mg QID PRN PO PAIN LEVEL 1-5; Start 07/21/17 at 23:30 Ondansetron HCl (Zofran Inj) 4 mg Q6H PRN IV NAUSEA AND/OR VOMITING Last administered on 08/04/17 02:15; Admin Dose 4 MG; Start 07/21/17 at 23:30 Acetaminophen/ Hydrocodone Bitart ([place] (5/325)) 1 tab Q4H PRN PO PAIN LEVEL 4 -7 Last administered on 08/03/17 16:41; Admin Dose 1 TAB; Start 07/21/17 at 23:30 Metoprolol Tartrate (Lopressor) 12.5 mg BID PO Last administered on 08/10/17 09:30; Admin Dose 12.5 MG; Start 07/27/17 at 21:00 Docusate Sodium (Colace) 100 mg BID PO Last administered on 08/10/17 09:28; Admin Dose 100 MG; Start 07/28/17 at 21:00 Polyethylene Glycol (Miralax) 17 gm PRN PRN PO CONSTIPATION Last administered on 07/31/17 20:26; Admin Dose 17 GM; Start 07/28/17 at 15:00 Senna (Senokot) 1 tab DAILY PRN PO CONSTIPATION Last administered on 20:25; Admin Dose 1 TAB; Start 07/30/17 at 17:00 Mineral Oil (Mineral Oil) 30 ml BID PO Last administered on 08/05/17 08:57; Admin Dose 30 ML; Start 07/30/17 at 21:00 Furosemide (Lasix) 20 mg DAILY IV Last administered on 08/10/17 09:27; Admin Dose 20 MG; Start 08/01/17 at 09:00 Lorazepam (Ativan) 0.5 mg Q6H PRN IV ANXIETY Last administered on 08/10/17 09: 38; Admin Dose 0.5 MG; Start 08/01/17 at 19:00 Metoprolol Tartrate (Lopressor) 5 mg Q4H PRN IV ELEVATED HEART RATE; Start at 04:00 Famotidine (Pepcid Iv) 20 mg BID IV Last administered on 08/10/17 09:27; Admin Dose 20 MG; Start 08/04/17 at 09:00 Levalbuterol (Xopenex Neb) 0.63 mg Q6H PRN HHN SHORTNESS OF BREATH Last administered on 08/09/17 18:20; Admin Dose 0.63 MG; Start 08/06/17 at 14:00 Acetaminophen/ Hydrocodone Bitart ([place] (5/325)) 2 tab Q4H PRN PO PAIN LEVEL 6 -10; Start 08/06/17 at 08:00 Lactobacillus Acidophilus/ Rhamnosus (Culturelle) 1 cap BID PO Last administered on 08/10/17 09:28; Admin Dose 1 CAP; Start 08/07/17 at 21:00 Apixaban (Eliquis) 10 mg BID PO Last administered on 08/10/17 09:27; Admin Dose 10 MG; Start 08/08/17 at 09:00 Aspirin (Halfprin) 81 mg DAILY PO Last administered on 08/10/17 09:28; Admin Dose 81 MG; Start 08/08/17 at 09:00 Azithromycin (Zithromax) 250 mg DAILY PO Last administered on 08/10/17 09:29; Admin Dose 250 MG; Start 08/08/17 at 09:00; Stop 08/12/17 at 12:00 Clopidogrel Bisulfate (plaVIX) 75 mg DAILY PO Last administered on 08/10/17 09 :29; Admin Dose 75 MG; Start 08/09/17 at 09:00 JANES DAVIS M.D. Aug 10, 2017 11:28
--- NOTE | 2017-08-10 14:35 | CONS ---
Date/Time of Note Date/Time of Note DATE: 08/10/17 TIME: 14:33 Consult Date/Type/Reason Admit Date/Time Jul 21, 2017 at 23:03 Initial Consult Date 08/04/17 Type of Consultation: Pulm Ordering Provider: SEBAS LALA MD Subjective No events. Objective Vital Signs Date Time Temp Pulse Resp B/P Pulse Ox O2 Delivery O2 Flow Rate FiO2 08/10/17 12:23 97.7 110 20 104/54 95 08/09/17 18:20 21 08/08/17 22:30 Room Air 08/07/17 20:43 2.0 Intake and Output 08/09/17 08/09/17 08/10/17 15:00 23:00 07:00 Intake Total 1100 ml Output Total 1450 ml Balance -350 ml Exam HEENT: Neck supple; no JVD; no LAD CVS: RRR, S1 and S2 CHEST: Clear ABD: Soft, NT, + BS EXT: No c/c; ischemic LE Results/Medications Result Diagram: 08/10/17 0702 08/10/17 0702 Results 24 hrs Laboratory Tests Test 08/10/17 07:02 White Blood Count 8.3 Red Blood Count 3.22 L Hemoglobin 8.7 L Hematocrit 28.0 L Mean Corpuscular Volume 87.0 Mean Corpuscular Hemoglobin 27.0 L Mean Corpuscular Hemoglobin Concent 31.1 L Red Cell Distribution Width 15.8 H Platelet Count 319 Mean Platelet Volume 9.4 Neutrophils % 71.1 Lymphocytes % 13.2 L Monocytes % 10.1 Eosinophils % 4.3 Basophils % 0.6 Nucleated Red Blood Cells % 0.0 Neutrophils # 5.9 Lymphocytes # 1.1 Monocytes # 0.8 Eosinophils # 0.4 Basophils # 0.1 Nucleated Red Blood Cells # 0.0 Sodium Level 139 Potassium Level 3.7 Chloride Level 103 Carbon Dioxide Level 29 Anion Gap 11 Blood Urea Nitrogen 10 Creatinine 0.70 Glucose Level 73 Calcium Level 8.5 Medications Current Medications Dutasteride (Avodart) 0.5 mg DAILY PO Last administered on 08/10/17 09:30; Admin Dose 0.5 MG; Start 07/22/17 at 09:00 Gabapentin (Neurontin) 300 mg QHS PO Last administered on 08/09/17 21:28; Admin Dose 300 MG; Start 07/22/17 at 21:00 Salmeterol Xinafoate/ Fluticasone (Advair 250/50 Diskus) 1 inh BID INH Last administered on 08/08/17 09:16; Admin Dose 1 INH; Start 07/22/17 at 09:00 Atorvastatin Calcium (Lipitor) 10 mg QAM PO Last administered on 08/10/17 09: 28; Admin Dose 10 MG; Start 07/22/17 at 09:00 Acetaminophen (Tylenol Tab) 650 mg QID PRN PO PAIN LEVEL 1-5; Start 07/21/17 at 23:30 Ondansetron HCl (Zofran Inj) 4 mg Q6H PRN IV NAUSEA AND/OR VOMITING Last administered on 08/04/17 02:15; Admin Dose 4 MG; Start 07/21/17 at 23:30 Acetaminophen/ Hydrocodone Bitart ([place] (5/325)) 1 tab Q4H PRN PO PAIN LEVEL 4 -7 Last administered on 08/03/17 16:41; Admin Dose 1 TAB; Start 07/21/17 at 23:30 Docusate Sodium (Colace) 100 mg BID PO Last administered on 08/10/17 09:28; Admin Dose 100 MG; Start 07/28/17 at 21:00 Polyethylene Glycol (Miralax) 17 gm PRN PRN PO CONSTIPATION Last administered on 07/31/17 20:26; Admin Dose 17 GM; Start 07/28/17 at 15:00 Senna (Senokot) 1 tab DAILY PRN PO CONSTIPATION Last administered on 20:25; Admin Dose 1 TAB; Start 07/30/17 at 17:00 Mineral Oil (Mineral Oil) 30 ml BID PO Last administered on 08/05/17 08:57; Admin Dose 30 ML; Start 07/30/17 at 21:00 Furosemide (Lasix) 20 mg DAILY IV Last administered on 08/10/17 09:27; Admin Dose 20 MG; Start 08/01/17 at 09:00 Lorazepam (Ativan) 0.5 mg Q6H PRN IV ANXIETY Last administered on 08/10/17 09: 38; Admin Dose 0.5 MG; Start 08/01/17 at 19:00 Metoprolol Tartrate (Lopressor) 5 mg Q4H PRN IV ELEVATED HEART RATE; Start at 04:00 Famotidine (Pepcid Iv) 20 mg BID IV Last administered on 08/10/17 09:27; Admin Dose 20 MG; Start 08/04/17 at 09:00 Levalbuterol (Xopenex Neb) 0.63 mg Q6H PRN HHN SHORTNESS OF BREATH Last administered on 08/09/17 18:20; Admin Dose 0.63 MG; Start 08/06/17 at 14:00 Acetaminophen/ Hydrocodone Bitart ([place] (5/325)) 2 tab Q4H PRN PO PAIN LEVEL 6 -10; Start 08/06/17 at 08:00 Lactobacillus Acidophilus/ Rhamnosus (Culturelle) 1 cap BID PO Last administered on 08/10/17 09:28; Admin Dose 1 CAP; Start 08/07/17 at 21:00 Apixaban (Eliquis) 10 mg BID PO Last administered on 08/10/17 09:27; Admin Dose 10 MG; Start 08/08/17 at 09:00 Azithromycin (Zithromax) 250 mg DAILY PO Last administered on 08/10/17 09:29; Admin Dose 250 MG; Start 08/08/17 at 09:00; Stop 08/12/17 at 12:00 Clopidogrel Bisulfate (plaVIX) 75 mg DAILY PO Last administered on 08/10/17 09 :29; Admin Dose 75 MG; Start 08/09/17 at 09:00 Metoprolol Tartrate (Lopressor) 50 mg BID PO ; Start 08/10/17 at 21:00 Assessment/Plan Additional Assessment/Plan IMP: 1. RUL peripheral pulm nodule RECS: 1. Outpatient PFT's, PET, possible CT-guided bx 2. F/U with Dr. Harmon in 2-3 weeks DIANA HUGHES MD Aug 10, 2017 14:34
--- NOTE | 2017-08-10 16:13 | CONS ---
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 , S/p R fem-pop stent grafting and aortoiliac angiogram and S/p BLE thrombectomy (pt had multiple lysis checks and thrombectomies with latest on 08/07/2017) - H/o DVT s/p IVC filter - RUL mass-like lesion concerning for malignancy/Pulmonary nodule with possible PNA per pulmonary - declining biopsy, s/p empiric azithromycin - Bilateral adrenal nodules concerning for malignancy per CT - COPD/emphysema - Hypercoagulation - Dyslipidemia - Debility d/t prolonged hospitalization Recommendations: - monitor closely off antibiotics - pending: cocci, crypto (08/07 in process) - continue probiotics - okay from ID standpoint for DC home Management d/w pt, SHAWN Collado, and Dr. Faria Problems: Consultation Date/Type/Reason Admit Date/Time Jul 21, 2017 at 23:03 Initial Consult Date 08/04/17 Type of Consultation: Infectious Disease Referring Provider: SEBAS LALA MD 24 HR Interval Summary Free Text/Dictation Azithromycin was restarted for unclear reason. No acute issues; requested for Ativan for anxiety per d/w nursing staff. Pt states he is anxious to go home tomorrow. "I feel like I'm in penitentiary. I can't get OOB without the bed alarm going off. I'm 6''6" and I need to move". States "I don't have any pain what so ever". Denies SOB, n/v/d, dysuria, productive cough. Exam/Review of Systems Vital Signs Vitals Vital Signs Date Time Temp Pulse Resp B/P Pulse Ox O2 Delivery O2 Flow Rate FiO2 08/10/17 15:45 97.8 110 18 113/58 95 08/09/17 18:20 21 08/08/17 22:30 Room Air 08/07/17 20:43 2.0 Intake and Output 08/09/17 08/09/17 08/10/17 15:00 23:00 07:00 Intake Total 1100 ml Output Total 1450 ml Balance -350 ml Exam Constitutional: alert, oriented, other (thin), well developed Psych: no complaints Head: atraumatic, normocephalic Eyes: nl sclera Neck: supple Respiratory: clear to auscultation, normal air movement Cardiovascular: regular rate and rhythm Gastrointestinal: soft, No distended Genitourinary - Male: other (No Galvan) Extremities: edema (RLE) Neurological: nl mental status, nl speech Skin: nl turgor Results Result Diagram: 08/10/1770108/10/17701 Results 24 hrs Laboratory Tests Test 08/10/17 07:02 White Blood Count 8.3 Red Blood Count 3.22 L Hemoglobin 8.7 L Hematocrit 28.0 L Mean Corpuscular Volume 87.0 Mean Corpuscular Hemoglobin 27.0 L Mean Corpuscular Hemoglobin Concent 31.1 L Red Cell Distribution Width 15.8 H Platelet Count 319 Mean Platelet Volume 9.4 Neutrophils % 71.1 Lymphocytes % 13.2 L Monocytes % 10.1 Eosinophils % 4.3 Basophils % 0.6 Nucleated Red Blood Cells % 0.0 Neutrophils # 5.9 Lymphocytes # 1.1 Monocytes # 0.8 Eosinophils # 0.4 Basophils # 0.1 Nucleated Red Blood Cells # 0.0 Sodium Level 139 Potassium Level 3.7 Chloride Level 103 Carbon Dioxide Level 29 Anion Gap 11 Blood Urea Nitrogen 10 Creatinine 0.70 Glucose Level 73 Calcium Level 8.5 Medications Medications Current Medications Dutasteride (Avodart) 0.5 mg DAILY PO Last administered on 08/10/17 09:30; Admin Dose 0.5 MG; Start 07/22/17 at 09:00 Gabapentin (Neurontin) 300 mg QHS PO Last administered on 08/09/17 21:28; Admin Dose 300 MG; Start 07/22/17 at 21:00 Salmeterol Xinafoate/ Fluticasone (Advair 250/50 Diskus) 1 inh BID INH Last administered on 08/08/17 09:16; Admin Dose 1 INH; Start 07/22/17 at 09:00 Atorvastatin Calcium (Lipitor) 10 mg QAM PO Last administered on 08/10/17 09: 28; Admin Dose 10 MG; Start 07/22/17 at 09:00 Acetaminophen (Tylenol Tab) 650 mg QID PRN PO PAIN LEVEL 1-5; Start 07/21/17 at 23:30 Ondansetron HCl (Zofran Inj) 4 mg Q6H PRN IV NAUSEA AND/OR VOMITING Last administered on 08/04/17 02:15; Admin Dose 4 MG; Start 07/21/17 at 23:30 Acetaminophen/ Hydrocodone Bitart ([place] (5/325)) 1 tab Q4H PRN PO PAIN LEVEL 4 -7 Last administered on 08/03/17 16:41; Admin Dose 1 TAB; Start 07/21/17 at 23:30 Docusate Sodium (Colace) 100 mg BID PO Last administered on 08/10/17 09:28; Admin Dose 100 MG; Start 07/28/17 at 21:00 Polyethylene Glycol (Miralax) 17 gm PRN PRN PO CONSTIPATION Last administered on 07/31/17 20:26; Admin Dose 17 GM; Start 07/28/17 at 15:00 Senna (Senokot) 1 tab DAILY PRN PO CONSTIPATION Last administered on 20:25; Admin Dose 1 TAB; Start 07/30/17 at 17:00 Mineral Oil (Mineral Oil) 30 ml BID PO Last administered on 08/05/17 08:57; Admin Dose 30 ML; Start 07/30/17 at 21:00 Furosemide (Lasix) 20 mg DAILY IV Last administered on 08/10/17 09:27; Admin Dose 20 MG; Start 08/01/17 at 09:00 Lorazepam (Ativan) 0.5 mg Q6H PRN IV ANXIETY Last administered on 08/10/17 15: 41; Admin Dose 0.5 MG; Start 08/01/17 at 19:00 Metoprolol Tartrate (Lopressor) 5 mg Q4H PRN IV ELEVATED HEART RATE; Start at 04:00 Famotidine (Pepcid Iv) 20 mg BID IV Last administered on 08/10/17 09:27; Admin Dose 20 MG; Start 08/04/17 at 09:00 Levalbuterol (Xopenex Neb) 0.63 mg Q6H PRN HHN SHORTNESS OF BREATH Last administered on 08/09/17 18:20; Admin Dose 0.63 MG; Start 08/06/17 at 14:00 Acetaminophen/ Hydrocodone Bitart ([place] (5/325)) 2 tab Q4H PRN PO PAIN LEVEL 6 -10; Start 08/06/17 at 08:00 Lactobacillus Acidophilus/ Rhamnosus (Culturelle) 1 cap BID PO Last administered on 08/10/17 09:28; Admin Dose 1 CAP; Start 08/07/17 at 21:00 Apixaban (Eliquis) 10 mg BID PO Last administered on 08/10/17 09:27; Admin Dose 10 MG; Start 08/08/17 at 09:00 Azithromycin (Zithromax) 250 mg DAILY PO Last administered on 08/10/17 09:29; Admin Dose 250 MG; Start 08/08/17 at 09:00; Stop 08/12/17 at 12:00 Clopidogrel Bisulfate (plaVIX) 75 mg DAILY PO Last administered on 08/10/17 09 :29; Admin Dose 75 MG; Start 08/09/17 at 09:00 Metoprolol Tartrate (Lopressor) 50 mg BID PO ; Start 08/10/17 at 21:00 JEANMARIE MALONEY NP Aug 10, 2017 16:13
--- NOTE | 2017-08-10 17:18 | PN ---
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 Dr. Mendiola is following in vascular surgery consultation. status post heparin drip. Continue Eliquis, aspirin and Plavix. -Hypercoagulation work up is neg, Dr Amaya is following in hematology consultation. 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 Patient refused lung biopsy at this time. Dr Garay is following in pulmonology consultation. Continue Zithromax with this recommendation for follow-up CT in [address] as an outpatient and biopsy when he is comfortable. -COPD, continue Advair -Dyslipidemia -BPH Anticipate dc tomorrow.Further recommendations based on clinical course. Plan of care discussed with Dr. Drake Subjective 24 Hr Interval Summary Respiratory: no complaints Cardiovascular: no complaints Gastrointestinal: no complaints Genitourinary: no complaints Musculoskeletal: other Exam/Review of Systems Vital Signs Vitals Vital Signs Date Time Temp Pulse Resp B/P Pulse Ox O2 Delivery O2 Flow Rate FiO2 08/10/17 16:06 105 08/10/17 15:45 97.8 18 113/58 95 08/09/17 18:20 21 08/08/17 22:30 Room Air 08/07/17 20:43 2.0 Intake and Output 08/09/17 08/09/17 08/10/17 15:00 23:00 07:00 Intake Total 1100 ml Output Total 1450 ml Balance -350 ml Exam Constitutional: alert, well developed Respiratory: diminished breath sounds Cardiovascular: nl pulses Gastrointestinal: non-tender, soft Musculoskeletal: other Extremities: normal pulses Neurological: nl mental status, nl speech Results Result Diagram: 08/10/17 0702 08/10/17 0702 Results 24 hrs Laboratory Tests Test 08/10/17 07:02 White Blood Count 8.3 Red Blood Count 3.22 L Hemoglobin 8.7 L Hematocrit 28.0 L Mean Corpuscular Volume 87.0 Mean Corpuscular Hemoglobin 27.0 L Mean Corpuscular Hemoglobin Concent 31.1 L Red Cell Distribution Width 15.8 H Platelet Count 319 Mean Platelet Volume 9.4 Neutrophils % 71.1 Lymphocytes % 13.2 L Monocytes % 10.1 Eosinophils % 4.3 Basophils % 0.6 Nucleated Red Blood Cells % 0.0 Neutrophils # 5.9 Lymphocytes # 1.1 Monocytes # 0.8 Eosinophils # 0.4 Basophils # 0.1 Nucleated Red Blood Cells # 0.0 Sodium Level 139 Potassium Level 3.7 Chloride Level 103 Carbon Dioxide Level 29 Anion Gap 11 Blood Urea Nitrogen 10 Creatinine 0.70 Glucose Level 73 Calcium Level 8.5 Medications Medications Current Medications Dutasteride (Avodart) 0.5 mg DAILY PO Last administered on 08/10/17 09:30; Admin Dose 0.5 MG; Start 07/22/17 at 09:00 Gabapentin (Neurontin) 300 mg QHS PO Last administered on 08/09/17 21:28; Admin Dose 300 MG; Start 07/22/17 at 21:00 Salmeterol Xinafoate/ Fluticasone (Advair 250/50 Diskus) 1 inh BID INH Last administered on 08/08/17 09:16; Admin Dose 1 INH; Start 07/22/17 at 09:00 Atorvastatin Calcium (Lipitor) 10 mg QAM PO Last administered on 08/10/17 09: 28; Admin Dose 10 MG; Start 07/22/17 at 09:00 Acetaminophen (Tylenol Tab) 650 mg QID PRN PO PAIN LEVEL 1-5; Start 07/21/17 at 23:30 Ondansetron HCl (Zofran Inj) 4 mg Q6H PRN IV NAUSEA AND/OR VOMITING Last administered on 08/04/17 02:15; Admin Dose 4 MG; Start 07/21/17 at 23:30 Acetaminophen/ Hydrocodone Bitart ([place] (5/325)) 1 tab Q4H PRN PO PAIN LEVEL 4 -7 Last administered on 08/03/17 16:41; Admin Dose 1 TAB; Start 07/21/17 at 23:30 Docusate Sodium (Colace) 100 mg BID PO Last administered on 08/10/17 09:28; Admin Dose 100 MG; Start 07/28/17 at 21:00 Polyethylene Glycol (Miralax) 17 gm PRN PRN PO CONSTIPATION Last administered on 07/31/17 20:26; Admin Dose 17 GM; Start 07/28/17 at 15:00 Senna (Senokot) 1 tab DAILY PRN PO CONSTIPATION Last administered on 20:25; Admin Dose 1 TAB; Start 07/30/17 at 17:00 Mineral Oil (Mineral Oil) 30 ml BID PO Last administered on 08/05/17 08:57; Admin Dose 30 ML; Start 07/30/17 at 21:00 Furosemide (Lasix) 20 mg DAILY IV Last administered on 08/10/17 09:27; Admin Dose 20 MG; Start 08/01/17 at 09:00 Lorazepam (Ativan) 0.5 mg Q6H PRN IV ANXIETY Last administered on 08/10/17 15: 41; Admin Dose 0.5 MG; Start 08/01/17 at 19:00 Metoprolol Tartrate (Lopressor) 5 mg Q4H PRN IV ELEVATED HEART RATE; Start at 04:00 Levalbuterol (Xopenex Neb) 0.63 mg Q6H PRN HHN SHORTNESS OF BREATH Last administered on 08/09/17 18:20; Admin Dose 0.63 MG; Start 08/06/17 at 14:00 Acetaminophen/ Hydrocodone Bitart ([place] (5/325)) 2 tab Q4H PRN PO PAIN LEVEL 6 -10; Start 08/06/17 at 08:00 Lactobacillus Acidophilus/ Rhamnosus (Culturelle) 1 cap BID PO Last administered on 08/10/17 09:28; Admin Dose 1 CAP; Start 08/07/17 at 21:00 Apixaban (Eliquis) 10 mg BID PO Last administered on 08/10/17 09:27; Admin Dose 10 MG; Start 08/08/17 at 09:00 Azithromycin (Zithromax) 250 mg DAILY PO Last administered on 08/10/17 09:29; Admin Dose 250 MG; Start 08/08/17 at 09:00; Stop 08/12/17 at 12:00 Clopidogrel Bisulfate (plaVIX) 75 mg DAILY PO Last administered on 08/10/17 09 :29; Admin Dose 75 MG; Start 08/09/17 at 09:00 Metoprolol Tartrate (Lopressor) 50 mg BID PO ; Start 08/10/17 at 21:00 Famotidine (Pepcid) 20 mg BID PO ; Start 08/10/17 at 21:00 JOSIE CHENG Aug 10, 2017 17:18
--- NOTE | 2017-08-10 17:38 | PN ---
Date/Time of Note Date/Time of Note DATE: 08/10/17 TIME: 17:35 Assessment/Plan Lines/Catheters IV Catheter Type (from [facility]): Saline Lock Galvan in Place (from [facility]): No Assessment/Plan Chief Complaint/Hosp Course -Bilateral lower extremity atherosclerosis with disabling claudication and right popliteal artery aneurysm: It seems the patient may have findings of atheroemboli related to his popliteal artery aneurysm. -S/P Right fem-pop Stent grafting and Aortoiliac angiogram 07/23/2017 -Bilateral lower extremity acute venous thrombosis involving CFV, iliac veins and IVC: It seems the patient may have failed with Coumadin therapy as he had previous acute onsets of venous thrombosis with therapeutic INR's. Given the new findings of his CT scan of the lung, concern of cancer given his smoking history is there especially being hypercoagulable and failed Coumadin therapy 07/23/2017: -S/P Bilateral lower extremity venogram -S/P Bilateral CI, EI, CF veins and caval mechanical thrombectomy -S/P Thrombolysis Catheters 07/24/2017: -S/P Bilateral lysis check 07/25/2017 -S/P Bilateral Lysis check & removal of catheters 08/03/2017 - Patient had delayed transition of anticoagulation IV -> PO -S/P RLE angiogram, mechanical thrombectomy and thrombolysis -S/P RLE venogram, lysis catheter placement 08/04/2017 -S/P Lysis check 08/06/2017 -S/P lysis check, -S/P Iliocaval mechanical thrombectomy -S/P Removal of RLE arterial catheter 08/07/2017 -S/P Lysis check -S/P Iliocaval mechanical thrombectomy -S/P Removal of RLE venous catheter -Started Eliquis 10mg PO BID x 7days -Will also treat patient with dual antiplatelet therapy ASA and Plavix -Appreciate hematology Evaluation -Recommend for a lung biopsy given the CT chest findings to rule out any underlying tumors (possible cause of worsened hypercoagulable state) when patient is more stable -Continue neurovascular checks Q4 -D/C planning -OOB and FWB with pt/ot -Optimize vascular status (BP meds, diet, nutrition, exercise, sugar control, antiplatelets). -Discussed findings, plan and management with the patient and he understands. -Discussed limb salvage and realistic outcomes of our current findings and the possibility of limb loss with the patient. Patient fully understands the current findings of his hypercoagulable state and possibility of limb loss. Further, spoken with his family and the patient regarding serial interventions that may be needed and increased risks of intracranial hemorrhage, , stroke , AL, infection, thrombosis, device malfunction. We have discussed the plans with our multidisciplinary team and will continue our management per their recommendations -Thank you for allowing us to partake in the care of your patient. Please call with any questions. Problems: Subjective 24 Hr Interval Summary no new vascular events overnight Exam/Review of Systems Vital Signs Vitals Vital Signs Date Time Temp Pulse Resp B/P Pulse Ox O2 Delivery O2 Flow Rate FiO2 08/10/17 16:06 105 08/10/17 15:45 97.8 18 113/58 95 08/09/17 18:20 21 08/08/17 22:30 Room Air 08/07/17 20:43 2.0 Intake and Output 08/09/17 08/09/17 08/10/17 15:00 23:00 07:00 Intake Total 1100 ml Output Total 1450 ml Balance -350 ml Exam Free Text/Dictation GENERAL: Alert and oriented x3, PULMONARY: Coarse breath sounds bilaterally CARDIOVASCULAR: S1, S2 present ABDOMEN: Soft, nontender, nondistended. Bowel sounds positive. EXTREMITIES: -Right lower extremity palpable femoral pulse, palpable pedal (DP) pulse. Motor and sensory intact, Capillary refill 3, edema 2-3+ and soft -Left lower extremity, palpable femoral pulse, palpable pedal pulse. Motor and sensory intact. Capillary refill 3 -Bilateral groins soft Results Result Diagram: 08/10/17 0702 08/10/17 0702 MATT MCCULLOUGH MD Aug 10, 2017 17:38
[2017-08-10] MEDS: FAMOTIDINE 20 MG TAB PO SCH (20:57)
[2017-08-10] MEDS: GABAPENTIN 300 MG CAP PO SCH (20:57)
[2017-08-10] MEDS: ZOLPIDEM 5 MG TAB PO PRN (20:58)
[2017-08-10] MEDS: METOPROLOL 50 MG TAB PO SCH (20:59)
[2017-08-11] VITALS (11 sets, daily range): BP systolic 100–111; BP diastolic 58–61; PULSE 99–113; RESP 18–20
[2017-08-11 08:27] LABS: BASOPHILS % 0.4 % (0.0-2.0); EOSINOPHILS # 0.4 10^3/ul (0.0-0.5); EOSINOPHILS % 5.2 % (0.0-7.0); HEMATOCRIT 29.6 % (42.0-52.0); HEMOGLOBIN 9.2 g/dl (14.0-18.0); LYMPHOCYTES # 1.3 10^3/ul (0.8-2.9); LYMPHOCYTES % 17.6 % (15.0-51.0); MEAN CORPUSCULAR HGB CONC 31.1 g/dl (32.0-37.0); MEAN CORPUSCULAR VOLUME 86.8 fl (82.0-101.0); MEAN PLATELET VOLUME 9.5 fl (7.4-10.4); MONOCYTE # 0.9 10^3/ul (0.3-0.9); MONOCYTES % 12.4 % (0.0-11.0); NEUTROPHIL # 4.6 10^3/ul (1.6-7.5); NEUTROPHILS % 63.6 % (39.0-77.0); PLATELET COUNT 362 10^3/UL (140-415); RED BLOOD COUNT 3.41 10^6/ul (4.70-6.10); RED CELL DISTRIBUTION WIDTH 15.6 % (11.5-14.5); WHITE BLOOD COUNT 7.3 10^3/ul (4.8-10.8)
[2017-08-11 08:46] LABS: CALCIUM 8.4 mg/dl (8.4-10.2); CREATININE 0.71 mg/dl (0.61-1.24); POTASSIUM 3.7 mmol/L (3.5-5.1)
[2017-08-11] MEDS: MINERAL OIL 30ML CUP PO SCH ×2 (09:00→21:00)
[2017-08-11] MEDS: METOPROLOL 50 MG TAB PO SCH (09:00)
[2017-08-11] MEDS: DOCUSATE SODIUM 100 MG CAP PO SCH ×2 (09:00→21:00)
[2017-08-11] MEDS: SALMETEROL/FLUTICASONE 250/50 INHA INH SCH ×2 (09:00→21:00)
--- NOTE | 2017-08-11 09:01 | OPR ---
DATE OF OPERATION: 08/06/2017 SURGEON: Ash Mendiola. PREOPERATIVE DIAGNOSES: 1. Right femoral popliteal artery aneurysm. 2. Right femoral popliteal artery thrombosed stent graft. 3. Right femoral popliteal deep venous thrombosis. 4. Iliocaval thrombosis. POSTOPERATIVE DIAGNOSES: 1. Right femoral popliteal artery aneurysm. 2. Right femoral popliteal artery thrombosed stent graft. 3. Right femoral popliteal deep venous thrombosis. 4. Iliocaval thrombosis. ANESTHESIA: Local with moderate sedation. ESTIMATED BLOOD LOSS: Minimal. COMPLICATIONS: None. HEPARIN: As recorded in a continuous IV infusion. TPA: One milligram per hour via bilateral lysis catheters. CONTRAST: As recorded. TRANSFUSIONS: One unit of packed red blood cells. ACCESS: 1. Left common femoral artery with a 6-Danish sheath. 2. Right common femoral vein with a 6-Danish sheath. SEDATION: Under physician supervision with moderate sedation fentanyl and Versed were administered intravenously under continuous monitoring by the interventional team and attending physician. Pulse oximeter, heart rate, blood pressures were continuously monitored by interventional surgeon. The s edation time was a total of 30 minutes of [id number] sedation time with the patient. INDICATIONS: This is a 72-year-old gentleman who presented earlier in the week with bilateral lower extremity iliofemoral DVT thrombosis and iliocaval deep vein thrombosis and right popliteal artery aneurysm in which she had underwent stent grafting of the right fem-pop artery aneurysm and lysis th erapy of the bilateral lower extremity DVTs. Subsequently, the patient did well with lysis therapy after 3 days and was started on new anticoagulation with bridging from heparin drip. The patient hart d a history of failed anticoagulation with Coumadin therapy. Today, the patient is doing in better in regards to his lower extremity discomfort and will be performing lysis check and possible interve ntion. The patient's right lower extremity discomfort has improved with new pedal pulses. The consuelo ent was informed of alternatives, risks and benefits and risks including but not limited to bleeding , thrombosis, embolization, myocardial infarction, , stroke, device malfunction, infection, nep hrotoxins, limb loss, nerve injury, intracranial hemorrhage and patient has agreed to proceed with l ysis check and interventions. PROCEDURES: 1. Lysis check via the left common femoral artery sheath. 2. Lysis check via the right common femoral vein sheath. 3. Moderate sedation. 4. Right lower extremity angiogram. 5. Right lower extremity venogram. 6. Arterial lysis catheter removal. 7. Mechanical thrombectomy of the iliocaval segment using Penumbra device. ESTIMATED BLOOD LOSS: 300 mL. FINDINGS: This patient continues to essentially have improved flow via the right femoral popliteal stent graft, although the flow still seems to be slightly stagnant. A different view was taken whic h also identified adequate flow across the stent graft with no residual thrombosis identified; howev er, there is still a bit of a delay with the flow across the segment, suggesting that patient still may have thrombus distally. The patient has 3-vessel runoff all the way down to the foot. In regards to the patient, she still has iliocaval thrombosis with mainly thrombosis in the IVC filt er and with improved flow; however, the blood seems to be stagnant in that segment. Proximal to the cava, there is no delay of flow to the right atrium. It seems the blood flow is appropriately flow ing through that segment. DESCRIPTION OF PROCEDURE: The patient was brought into the angio suite and positioned in supine pos ition on the fluoroscopic table. Sedation was administered without any complications. The patient' s bilateral groins were then shaved, prepped and draped in usual standard sterile fashion. Timeout and appropriate site was marked and confirmed. Local anesthesia was infiltrated in the regions of t he bilateral groin sheaths. At this point, using Visipaque contrast, the right lower extremity veno graphy and angiography was performed which identified the patient has resolution of her right fem-po p stent graft thrombosis. However, the flow seems to still be a bit stagnant across the segment. I n regards to the venography, it was identified the patient still has stagnant flow in the iliocaval segment specifically across the IVC filter. There is still suggestion that patient has significant thrombus in that segment in which it will require us to further continue with our lysis therapy. Th erefore, we plan to continue with our lysis therapy across this segment in which we also plan to per form mechanical thrombectomy using the Penumbra device. Therefore, we went ahead and removed the ly sis catheter from the arterial sheath which was in the left common femoral artery and using Angio-Se al closure device, a 6-Danish was deployed for removal of the sheath and manual compression was held . Subsequently, we went ahead and removed our lysis catheter, placed our Bentson wire across the ilioc aval thrombosis. At this point, using our penumbra device. We went ahead and upsized our sheath to an 8-Danish and used a CAD 8 device in order to perform thrombectomy. At this point, we went ahead and performed thrombectomy in the iliocaval segment which had adequate drainage of blood flow. The refore, the catheter was moved proximally into the IVC filter where there was a significant amount o f thrombosis in that segment. At that point, we went ahead and performed a thrombectomy, which ther e was some improvement regarding the flow across that segment. At this point, the patient did have 300 mL of blood loss, therefore, no further thrombectomy was performed. The patient tolerated this aspect of the procedure well and had a new lysis catheter placed for a distance therapy of 20 cm wit h treatment of 1 mg per hour. The 9 Danish sheath then had the heparin drip infusion per DVT protoc ol. The patient tolerated this aspect of the procedure well. The left groin was checked which was soft and no further drainage was identified. The patient's lysis catheter and sheath were secured a nd the patient was sent back to the critical care unit in stable condition. PLAN: We will bring the patient back tomorrow for lysis check and possible thrombectomy and will pl an to conclude lysis therapy from the venous standpoint, hopefully tomorrow. Dictated By: ASH KNOWLES/FERNIE Conf#: [id number] DID#: [id number]
[2017-08-11] MEDS: LACTOBACILLUS RHAMNOSUS CAP PO SCH ×2 (09:10→21:00)
[2017-08-11] MEDS: FAMOTIDINE 20 MG TAB PO SCH ×2 (09:10→21:00)
[2017-08-11] MEDS: ATORVASTATIN 10 MG TAB PO SCH (09:11)
[2017-08-11] MEDS: APIXABAN 5 MG TABLET PO SCH ×2 (09:11→21:00)
[2017-08-11] MEDS: DUTASTERIDE 0.5 MG CAP PO SCH (09:11)
[2017-08-11] MEDS: AZITHROMYCIN 250 MG TAB PO SCH (09:12)
[2017-08-11] MEDS: CLOPIDOGREL 75 MG TAB PO SCH (09:12)
[2017-08-11] MEDS: LORAZEPAM 2 MG INJ IV PRN ×2 (09:24→15:45)
--- NOTE | 2017-08-11 09:27 | OPR ---
Date/Time of Note Date/Time of Note DATE: 08/11/17 TIME: 09:26 Operative Report Procedure Date: Aug 07, 2017 Surgeon see signature line Jalousie Installer none Anesthesia Type: moderate sedation Estimated Blood Loss: minimal Transfusion none Specimen none Grafts/Implants none Complications none Pt Condition Post Procedure: critical Disposition: other (icu) Procedure Description DATE OF OPERATION: 08/07/2017 SURGEON: Ash Mccullough. PREOPERATIVE DIAGNOSES: 1. Right femoral popliteal artery aneurysm. 2. Right femoral popliteal artery thrombosed stent graft. 3. Right femoral popliteal deep venous thrombosis. 4. Iliocaval thrombosis. POSTOPERATIVE DIAGNOSES: 1. Right femoral popliteal artery aneurysm. 2. Right femoral popliteal artery thrombosed stent graft. 3. Right femoral popliteal deep venous thrombosis. 4. Iliocaval thrombosis. ANESTHESIA: Local with moderate sedation. ESTIMATED BLOOD LOSS: Minimal. COMPLICATIONS: None. HEPARIN: As recorded in a continuous IV infusion. TPA: One milligram per hour via bilateral lysis catheters. CONTRAST: As recorded. TRANSFUSIONS: One unit of packed red blood cells. ACCESS: 1. Left common femoral artery with a 6-[place] sheath. 2. Right common femoral vein with a 6-[place] sheath. SEDATION: Under physician supervision with moderate sedation fentanyl and Versed were administered intravenously under continuous monitoring by the interventional team and attending physician. Pulse oximeter, heart rate, blood pressures were continuously monitored by interventional surgeon. The sedation time was a total of 30 minutes of [id number] sedation time with the patient. INDICATIONS: This is a 72-year-old gentleman who presented earlier in the week with bilateral lower extremity iliofemoral DVT thrombosis and iliocaval deep vein thrombosis and right popliteal artery aneurysm in which she had underwent stent grafting of the right fem-pop artery aneurysm and lysis therapy of the bilateral lower extremity DVTs. Subsequently, the patient did well with lysis therapy after 3 days and was started on new anticoagulation with bridging from heparin drip. The patient had a history of failed anticoagulation with Coumadin therapy. Today, the patient is doing in better in regards to his lower extremity discomfort and will be performing lysis check and possible intervention. The patient's right lower extremity discomfort has improved with new pedal pulses. The patient was informed of alternatives, risks and benefits and risks including but not limited to bleeding, thrombosis, embolization, myocardial infarction, , stroke, device malfunction, infection, nephrotoxins, limb loss, nerve injury, intracranial hemorrhage and patient has agreed to proceed with lysis check and interventions. PROCEDURES: 1. Lysis check via the left common femoral artery sheath. 2. Lysis check via the right common femoral vein sheath. 3. Moderate sedation. 4. Right lower extremity angiogram. 5. Right lower extremity venogram. 6. Arterial lysis catheter removal. 7. Mechanical thrombectomy of the iliocaval segment using Penumbra device. ESTIMATED BLOOD LOSS: 300 mL. FINDINGS: This patient continues to essentially have improved flow via the right femoral popliteal stent graft, although the flow still seems to be slightly stagnant. A different view was taken which also identified adequate flow across the stent graft with no residual thrombosis identified; however, there is still a bit of a delay with the flow across the segment, suggesting that patient still may have thrombus distally. The patient has 3-vessel runoff all the way down to the foot. In regards to the patient, she still has iliocaval thrombosis with mainly thrombosis in the IVC filter and with improved flow; however, the blood seems to be stagnant in that segment. Proximal to the cava, there is no delay of flow to the right atrium. It seems the blood flow is appropriately flowing through that segment. DESCRIPTION OF PROCEDURE: The patient was brought into the angio suite and positioned in supine position on the fluoroscopic table. Sedation was administered without any complications. The patient's bilateral groins were then shaved, prepped and draped in usual standard sterile fashion. Timeout and appropriate site was marked and confirmed. Local anesthesia was infiltrated in the regions of the bilateral groin sheaths. At this point, using Visipaque contrast, the right lower extremity venography and angiography was performed which identified the patient has resolution of her right fem-pop stent graft thrombosis. However, the flow seems to still be a bit stagnant across the segment. In regards to the venography, it was identified the patient still has stagnant flow in the iliocaval segment specifically across the IVC filter. There is still suggestion that patient has significant thrombus in that segment in which it will require us to further continue with our lysis therapy. Therefore, we plan to continue with our lysis therapy across this segment in which we also plan to perform mechanical thrombectomy using the Penumbra device. Therefore, we went ahead and removed the lysis catheter from the arterial sheath which was in the left common femoral artery and using Angio- Seal closure device, a 6-[place] was deployed for removal of the sheath and manual compression was held. Subsequently, we went ahead and removed our lysis catheter, placed our Bentson wire across the iliocaval thrombosis. At this point, using our penumbra device. We went ahead and upsized our sheath to an 8-[place] and used a CAD 8 device in order to perform thrombectomy. At this point, we went ahead and performed thrombectomy in the iliocaval segment which had adequate drainage of blood flow. Therefore, the catheter was moved proximally into the IVC filter where there was a significant amount of thrombosis in that segment. At that point, we went ahead and performed a thrombectomy, which there was some improvement regarding the flow across that segment. At this point, the patient did have 300 mL of blood loss, therefore, no further thrombectomy was performed. The patient tolerated this aspect of the procedure well and had a new lysis catheter placed for a distance therapy of 20 cm with treatment of 1 mg per hour. The 9 [place] sheath then had the heparin drip infusion per DVT protocol. The patient tolerated this aspect of the procedure well. The left groin was checked which was soft and no further drainage was identified. The patient's lysis catheter and sheath were secured and the patient was sent back to the critical care unit in stable condition. PLAN: We will bring the patient back tomorrow for lysis check and possible thrombectomy and will plan to conclude lysis therapy from the venous standpoint , hopefully tomorrow. ASH MCCULLOUGH MD Aug 11, 2017 09:27
--- NOTE | 2017-08-11 09:49 | CONS ---
Date/Time of Note Date/Time of Note DATE: 08/11/17 TIME: 09:46 Assessment/Plan Assessment/Plan Chief Complaint/Hosp Course #RLE Lung mass with hilar adenopathy -given CT findings there is increased concern for lung cancer, especially given his smoking history -the CT findings were discussed in detail with the patient who understands he will need a biopsy to rule out cancer -at this time, patient has changed his mind and does not want to pursue a biopsy in the hospital. -as explained to the patient we can perform an out patient PET CT and biopsy when he is comfortable -although this mass has been there for years, the hilar adenopathy makes me concerned for underlying cancer. 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 started on 08/08 -Status post IVC filter placement -hypercoag workup negative. 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 Pt likely having thromboemboli form this aneurism -continue Plavix Problems: Consultation Date/Type/Reason Admit Date/Time Jul 21, 2017 at 23:03 Initial Consult Date 07/23/17 Type of Consultation: Hematology Reason for Consultation Bilateral DVT Referring Provider: SEBAS LALA MD 24 HR Interval Summary Free Text/Dictation heparin gtt has been stopped. pt continues on Eliquis 10mg BID. feels well. states he wants to go home Exam/Review of Systems Vital Signs Vitals Vital Signs Date Time Temp Pulse Resp B/P Pulse Ox O2 Delivery O2 Flow Rate FiO2 08/11/17 08:10 101 08/11/17 07:46 97.6 20 110/61 98 08/11/17 00:17 21 08/08/17 22:30 Room Air 08/07/17 20:43 2.0 Intake and Output 08/10/17 08/10/17 08/11/17 15:00 23:00 07:00 Intake Total 1000 ml Output Total 950 ml Balance 50 ml Exam Constitutional: alert, frail, oriented Psych: anxiety, depression, no complaints Head: normocephalic Eyes: nl conjunctiva ENMT: nl external ears & nose Neck: non-tender, supple Respiratory: clear to auscultation Cardiovascular: regular rate and rhythm Gastrointestinal: soft Musculoskeletal: nl extremities to inspection Extremities: other (Bilateral venous stasis changes) Results Result Diagram: 08/11/1771808/11/17718 Results 24 hrs Laboratory Tests Test 08/11/17 07:19 White Blood Count 7.3 Red Blood Count 3.41 L Hemoglobin 9.2 L Hematocrit 29.6 L Mean Corpuscular Volume 86.8 Mean Corpuscular Hemoglobin 27.0 L Mean Corpuscular Hemoglobin Concent 31.1 L Red Cell Distribution Width 15.6 H Platelet Count 362 Mean Platelet Volume 9.5 Neutrophils % 63.6 Lymphocytes % 17.6 Monocytes % 12.4 H Eosinophils % 5.2 Basophils % 0.4 Nucleated Red Blood Cells % 0.0 Neutrophils # 4.6 Lymphocytes # 1.3 Monocytes # 0.9 Eosinophils # 0.4 Basophils # 0.0 Nucleated Red Blood Cells # 0.0 Sodium Level 140 Potassium Level 3.7 Chloride Level 103 Carbon Dioxide Level 30 Anion Gap 11 Blood Urea Nitrogen 9 Creatinine 0.71 Glucose Level 92 Calcium Level 8.4 Medications Medications Current Medications Dutasteride (Avodart) 0.5 mg DAILY PO Last administered on 08/11/17 09:11; Admin Dose 0.5 MG; Start 07/22/17 at 09:00 Gabapentin (Neurontin) 300 mg QHS PO Last administered on 08/10/17 20:57; Admin Dose 300 MG; Start 07/22/17 at 21:00 Salmeterol Xinafoate/ Fluticasone (Advair 250/50 Diskus) 1 inh BID INH Last administered on 08/08/17 09:16; Admin Dose 1 INH; Start 07/22/17 at 09:00 Atorvastatin Calcium (Lipitor) 10 mg QAM PO Last administered on 08/11/17 09: 11; Admin Dose 10 MG; Start 07/22/17 at 09:00 Acetaminophen (Tylenol Tab) 650 mg QID PRN PO PAIN LEVEL 1-5; Start 07/21/17 at 23:30 Ondansetron HCl (Zofran Inj) 4 mg Q6H PRN IV NAUSEA AND/OR VOMITING Last administered on 08/04/17 02:15; Admin Dose 4 MG; Start 07/21/17 at 23:30 Acetaminophen/ Hydrocodone Bitart ([place] (5/325)) 1 tab Q4H PRN PO PAIN LEVEL 4 -7 Last administered on 08/03/17 16:41; Admin Dose 1 TAB; Start 07/21/17 at 23:30 Docusate Sodium (Colace) 100 mg BID PO Last administered on 08/10/17 20:57; Admin Dose 100 MG; Start 07/28/17 at 21:00 Polyethylene Glycol (Miralax) 17 gm PRN PRN PO CONSTIPATION Last administered on 07/31/17 20:26; Admin Dose 17 GM; Start 07/28/17 at 15:00 Senna (Senokot) 1 tab DAILY PRN PO CONSTIPATION Last administered on 20:25; Admin Dose 1 TAB; Start 07/30/17 at 17:00 Mineral Oil (Mineral Oil) 30 ml BID PO Last administered on 08/05/17 08:57; Admin Dose 30 ML; Start 07/30/17 at 21:00 Furosemide (Lasix) 20 mg DAILY IV Last administered on 08/10/17 09:27; Admin Dose 20 MG; Start 08/01/17 at 09:00 Lorazepam (Ativan) 0.5 mg Q6H PRN IV ANXIETY Last administered on 08/11/17 09: 24; Admin Dose 0.5 MG; Start 08/01/17 at 19:00 Metoprolol Tartrate (Lopressor) 5 mg Q4H PRN IV ELEVATED HEART RATE; Start at 04:00 Levalbuterol (Xopenex Neb) 0.63 mg Q6H PRN HHN SHORTNESS OF BREATH Last administered on 08/09/17 18:20; Admin Dose 0.63 MG; Start 08/06/17 at 14:00 Acetaminophen/ Hydrocodone Bitart ([place] (5/325)) 2 tab Q4H PRN PO PAIN LEVEL 6 -10; Start 08/06/17 at 08:00 Lactobacillus Acidophilus/ Rhamnosus (Culturelle) 1 cap BID PO Last administered on 08/11/17 09:10; Admin Dose 1 CAP; Start 08/07/17 at 21:00 Apixaban (Eliquis) 10 mg BID PO Last administered on 08/11/17 09:11; Admin Dose 10 MG; Start 08/08/17 at 09:00 Azithromycin (Zithromax) 250 mg DAILY PO Last administered on 08/11/17 09:12; Admin Dose 250 MG; Start 08/08/17 at 09:00; Stop 08/12/17 at 12:00 Clopidogrel Bisulfate (plaVIX) 75 mg DAILY PO Last administered on 08/11/17 09 :12; Admin Dose 75 MG; Start 08/09/17 at 09:00 Metoprolol Tartrate (Lopressor) 50 mg BID PO ; Start 08/10/17 at 21:00 Famotidine (Pepcid) 20 mg BID PO Last administered on 08/11/17 09:10; Admin Dose 20 MG; Start 08/10/17 at 21:00 AMARA MCINTYRE M.D. Aug 11, 2017 09:49
[2017-08-11] MEDS: ASPIRIN (EC) 81 MG TAB PO SCH (12:11)
--- NOTE | 2017-08-11 13:00 | PN ---
Date/Time of Note Date/Time of Note DATE: 08/11/17 TIME: 12:56 Assessment/Plan VTE Prophylaxis VTE Prophylaxis Intervention: SCD's Lines/Catheters IV C[facility]ter Type (from [facility] [place] [facility] Urinary Cath still in place: No Assessment/Plan Chief Complaint/Hosp Course Patient patient is eager to be discharged home, stating that he can ambulate without any pain in extremities. However patient becomes tachycardic during getting out of bed, metoprolol a.m. was hold due to a low blood pressure`, we will ask our cardiology colleagues to reevaluate the patient prior to discharge. 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 Dr. Mendiola is following in vascular surgery consultation. status post heparin drip. Continue Eliquis, aspirin and Plavix. -Hypercoagulation work up is neg, Dr Amaya is following in hematology consultation. 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 Patient refused lung biopsy at this time. Dr Garay is following in pulmonology consultation. Continue Zithromax with this recommendation for follow-up CT in [address] as an outpatient and biopsy when he is comfortable. -COPD, continue Advair -Dyslipidemia -BPH Further recommendations based on clinical course. Plan of care discussed with Dr. Drake Problems: Exam/Review of Systems Vital Signs Vitals Vital Signs Date Time Temp Pulse Resp B/P Pulse Ox O2 Delivery O2 Flow Rate FiO2 08/11/17 12:08 113 08/11/17 11:33 97.8 20 100/59 95 08/11/17 00:17 21 08/08/17 22:30 Room Air 08/07/17 20:43 2.0 Intake and Output 08/10/17 08/10/17 08/11/17 15:00 23:00 07:00 Intake Total 1000 ml Output Total 950 ml Balance 50 ml Exam Constitutional: alert, oriented Respiratory: normal air movement Cardiovascular: nl pulses Gastrointestinal: non-tender, soft Musculoskeletal: nl extremities to inspection Extremities: edema RLE Neurological: nl mental status Results Result Diagram: 08/11/1719 08/11/17 0719 Results 24 hrs Laboratory Tests Test 08/11/17 07:19 White Blood Count 7.3 Red Blood Count 3.41 L Hemoglobin 9.2 L Hematocrit 29.6 L Mean Corpuscular Volume 86.8 Mean Corpuscular Hemoglobin 27.0 L Mean Corpuscular Hemoglobin Concent 31.1 L Red Cell Distribution Width 15.6 H Platelet Count 362 Mean Platelet Volume 9.5 Neutrophils % 63.6 Lymphocytes % 17.6 Monocytes % 12.4 H Eosinophils % 5.2 Basophils % 0.4 Nucleated Red Blood Cells % 0.0 Neutrophils # 4.6 Lymphocytes # 1.3 Monocytes # 0.9 Eosinophils # 0.4 Basophils # 0.0 Nucleated Red Blood Cells # 0.0 Sodium Level 140 Potassium Level 3.7 Chloride Level 103 Carbon Dioxide Level 30 Anion Gap 11 Blood Urea Nitrogen 9 Creatinine 0.71 Glucose Level 92 Calcium Level 8.4 Medications Medications Current Medications Dutasteride (Avodart) 0.5 mg DAILY PO Last administered on 08/11/17 09:11; Admin Dose 0.5 MG; Start 07/22/17 at 09:00 Gabapentin (Neurontin) 300 mg QHS PO Last administered on 08/10/17 20:57; Admin Dose 300 MG; Start 07/22/17 at 21:00 Salmeterol Xinafoate/ Fluticasone (Advair 250/50 Diskus) 1 inh BID INH Last administered on 08/08/17 09:16; Admin Dose 1 INH; Start 07/22/17 at 09:00 Atorvastatin Calcium (Lipitor) 10 mg QAM PO Last administered on 08/11/17 09: 11; Admin Dose 10 MG; Start 07/22/17 at 09:00 Acetaminophen (Tylenol Tab) 650 mg QID PRN PO PAIN LEVEL 1-5; Start 07/21/17 at 23:30 Ondansetron HCl (Zofran Inj) 4 mg Q6H PRN IV NAUSEA AND/OR VOMITING Last administered on 08/04/17 02:15; Admin Dose 4 MG; Start 07/21/17 at 23:30 Acetaminophen/ Hydrocodone Bitart ([place] (5/325)) 1 tab Q4H PRN PO PAIN LEVEL 4 -7 Last administered on 08/03/17 16:41; Admin Dose 1 TAB; Start 07/21/17 at 23:30 Docusate Sodium (Colace) 100 mg BID PO Last administered on 08/10/17 20:57; Admin Dose 100 MG; Start 07/28/17 at 21:00 Polyethylene Glycol (Miralax) 17 gm PRN PRN PO CONSTIPATION Last administered on 07/31/17 20:26; Admin Dose 17 GM; Start 07/28/17 at 15:00 Senna (Senokot) 1 tab DAILY PRN PO CONSTIPATION Last administered on 20:25; Admin Dose 1 TAB; Start 07/30/17 at 17:00 Mineral Oil (Mineral Oil) 30 ml BID PO Last administered on 08/05/17 08:57; Admin Dose 30 ML; Start 07/30/17 at 21:00 Furosemide (Lasix) 20 mg DAILY IV Last administered on 08/10/17 09:27; Admin Dose 20 MG; Start 08/01/17 at 09:00 Lorazepam (Ativan) 0.5 mg Q6H PRN IV ANXIETY Last administered on 08/11/17 09: 24; Admin Dose 0.5 MG; Start 08/01/17 at 19:00 Metoprolol Tartrate (Lopressor) 5 mg Q4H PRN IV ELEVATED HEART RATE; Start at 04:00 Levalbuterol (Xopenex Neb) 0.63 mg Q6H PRN HHN SHORTNESS OF BREATH Last administered on 08/09/17 18:20; Admin Dose 0.63 MG; Start 08/06/17 at 14:00 Acetaminophen/ Hydrocodone Bitart ([place] (5/325)) 2 tab Q4H PRN PO PAIN LEVEL 6 -10; Start 08/06/17 at 08:00 Lactobacillus Acidophilus/ Rhamnosus (Culturelle) 1 cap BID PO Last administered on 08/11/17 09:10; Admin Dose 1 CAP; Start 08/07/17 at 21:00 Apixaban (Eliquis) 10 mg BID PO Last administered on 08/11/17 09:11; Admin Dose 10 MG; Start 08/08/17 at 09:00 Azithromycin (Zithromax) 250 mg DAILY PO Last administered on 08/11/17 09:12; Admin Dose 250 MG; Start 08/08/17 at 09:00; Stop 08/12/17 at 12:00 Clopidogrel Bisulfate (plaVIX) 75 mg DAILY PO Last administered on 08/11/17 09 :12; Admin Dose 75 MG; Start 08/09/17 at 09:00 Metoprolol Tartrate (Lopressor) 50 mg BID PO ; Start 08/10/17 at 21:00 Famotidine (Pepcid) 20 mg BID PO Last administered on 08/11/17 09:10; Admin Dose 20 MG; Start 08/10/17 at 21:00 Aspirin (Halfprin) 81 mg DAILY PO Last administered on 08/11/17 12:11; Admin Dose 81 MG; Start 08/11/17 at 11:30 LISETTE MEDINA Aug 11, 2017 12:59
[2017-08-11] MEDS: GABAPENTIN 300 MG CAP PO SCH (21:00)
[2017-08-11 21:58] LABS: CRYPTOCOCCAL ANTIGEN - SOURCE Serum
--- NOTE | 2017-08-11 22:11 | CONS ---
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 , S/p R fem-pop stent grafting and aortoiliac angiogram and S/p BLE thrombectomy (pt had multiple lysis checks and thrombectomies with latest on 08/07/2017) - H/o DVT s/p IVC filter - RUL mass-like lesion concerning for malignancy/Pulmonary nodule with possible PNA per pulmonary - declining biopsy, s/p empiric azithromycin - Bilateral adrenal nodules concerning for malignancy per CT - COPD/emphysema - Hypercoagulation - Dyslipidemia - Debility d/t prolonged hospitalization - improving - Tachycardia - Anxiety Recommendations: - monitor closely off antibiotics - pending: cocci (08/07 in process), crypto (not detected) - continue probiotics - okay from ID standpoint for DC home Management d/w patient, SHAWN Maciel, and Dr. Faria Therapeutic time provided Problems: Consultation Date/Type/Reason Admit Date/Time Jul 21, 2017 at 23:03 Initial Consult Date 08/04/17 Type of Consultation: Infectious Disease Referring Provider: SEBAS LALA MD 24 HR Interval Summary Free Text/Dictation Pt extremely anxious to go home stating "I've been here too long, I can walk, I have no pain, I have two supportive sisters and a girlfriend who can pick me up at anytime. I need to go home by tomorrow". Had episode of sustained tachycardia, HR 150's, during ambulation earlier and awaiting cardiac clearance per d/w nursing staff. Denies f/c, CP, SOB, n/v/d, dysuria. Exam/Review of Systems Vital Signs Vitals Vital Signs Date Time Temp Pulse Resp B/P Pulse Ox O2 Delivery O2 Flow Rate FiO2 08/11/17 20:00 102 08/11/17 15:30 97.8 19 111/61 95 08/11/17 00:17 21 08/08/17 22:30 Room Air 08/07/17 20:43 2.0 Intake and Output 08/10/17 08/10/17 08/11/17 15:00 23:00 07:00 Intake Total 1000 ml Output Total 950 ml Balance 50 ml Exam Constitutional: alert, oriented, other (thin), well developed Psych: anxiety Head: atraumatic, normocephalic Eyes: nl sclera Neck: supple Respiratory: clear to auscultation, normal air movement Cardiovascular: regular rate and rhythm Gastrointestinal: soft, No distended Genitourinary - Male: other (No Galvan) Extremities: edema (RLE) Neurological: nl mental status, nl speech Skin: nl turgor Results Result Diagram: 08/11/1771808/11/17718 Results 24 hrs Laboratory Tests Test 08/11/17 07:19 White Blood Count 7.3 Red Blood Count 3.41 L Hemoglobin 9.2 L Hematocrit 29.6 L Mean Corpuscular Volume 86.8 Mean Corpuscular Hemoglobin 27.0 L Mean Corpuscular Hemoglobin Concent 31.1 L Red Cell Distribution Width 15.6 H Platelet Count 362 Mean Platelet Volume 9.5 Neutrophils % 63.6 Lymphocytes % 17.6 Monocytes % 12.4 H Eosinophils % 5.2 Basophils % 0.4 Nucleated Red Blood Cells % 0.0 Neutrophils # 4.6 Lymphocytes # 1.3 Monocytes # 0.9 Eosinophils # 0.4 Basophils # 0.0 Nucleated Red Blood Cells # 0.0 Sodium Level 140 Potassium Level 3.7 Chloride Level 103 Carbon Dioxide Level 30 Anion Gap 11 Blood Urea Nitrogen 9 Creatinine 0.71 Glucose Level 92 Calcium Level 8.4 Medications Medications Current Medications Dutasteride (Avodart) 0.5 mg DAILY PO Last administered on 08/11/17 09:11; Admin Dose 0.5 MG; Start 07/22/17 at 09:00 Gabapentin (Neurontin) 300 mg QHS PO Last administered on 08/10/17 20:57; Admin Dose 300 MG; Start 07/22/17 at 21:00 Salmeterol Xinafoate/ Fluticasone (Advair 250/50 Diskus) 1 inh BID INH Last administered on 08/08/17 09:16; Admin Dose 1 INH; Start 07/22/17 at 09:00 Atorvastatin Calcium (Lipitor) 10 mg QAM PO Last administered on 08/11/17 09: 11; Admin Dose 10 MG; Start 07/22/17 at 09:00 Acetaminophen (Tylenol Tab) 650 mg QID PRN PO PAIN LEVEL 1-5; Start 07/21/17 at 23:30 Ondansetron HCl (Zofran Inj) 4 mg Q6H PRN IV NAUSEA AND/OR VOMITING Last administered on 08/04/17 02:15; Admin Dose 4 MG; Start 07/21/17 at 23:30 Acetaminophen/ Hydrocodone Bitart ([place] (5/325)) 1 tab Q4H PRN PO PAIN LEVEL 4 -7 Last administered on 08/03/17 16:41; Admin Dose 1 TAB; Start 07/21/17 at 23:30 Docusate Sodium (Colace) 100 mg BID PO Last administered on 08/10/17 20:57; Admin Dose 100 MG; Start 07/28/17 at 21:00 Polyethylene Glycol (Miralax) 17 gm PRN PRN PO CONSTIPATION Last administered on 07/31/17 20:26; Admin Dose 17 GM; Start 07/28/17 at 15:00 Senna (Senokot) 1 tab DAILY PRN PO CONSTIPATION Last administered on 20:25; Admin Dose 1 TAB; Start 07/30/17 at 17:00 Mineral Oil (Mineral Oil) 30 ml BID PO Last administered on 08/05/17 08:57; Admin Dose 30 ML; Start 07/30/17 at 21:00 Furosemide (Lasix) 20 mg DAILY IV Last administered on 08/10/17 09:27; Admin Dose 20 MG; Start 08/01/17 at 09:00 Lorazepam (Ativan) 0.5 mg Q6H PRN IV ANXIETY Last administered on 08/11/17 15: 45; Admin Dose 0.5 MG; Start 08/01/17 at 19:00 Metoprolol Tartrate (Lopressor) 5 mg Q4H PRN IV ELEVATED HEART RATE; Start at 04:00 Levalbuterol (Xopenex Neb) 0.63 mg Q6H PRN HHN SHORTNESS OF BREATH Last administered on 08/09/17 18:20; Admin Dose 0.63 MG; Start 08/06/17 at 14:00 Acetaminophen/ Hydrocodone Bitart ([place] (5/325)) 2 tab Q4H PRN PO PAIN LEVEL 6 -10; Start 08/06/17 at 08:00 Lactobacillus Acidophilus/ Rhamnosus (Culturelle) 1 cap BID PO Last administered on 08/11/17 09:10; Admin Dose 1 CAP; Start 08/07/17 at 21:00 Apixaban (Eliquis) 10 mg BID PO Last administered on 08/11/17 09:11; Admin Dose 10 MG; Start 08/08/17 at 09:00 Azithromycin (Zithromax) 250 mg DAILY PO Last administered on 08/11/17 09:12; Admin Dose 250 MG; Start 08/08/17 at 09:00; Stop 08/12/17 at 12:00 Clopidogrel Bisulfate (plaVIX) 75 mg DAILY PO Last administered on 08/11/17 09 :12; Admin Dose 75 MG; Start 08/09/17 at 09:00 Metoprolol Tartrate (Lopressor) 50 mg BID PO ; Start 08/10/17 at 21:00 Famotidine (Pepcid) 20 mg BID PO Last administered on 08/11/17 09:10; Admin Dose 20 MG; Start 08/10/17 at 21:00 Aspirin (Halfprin) 81 mg DAILY PO Last administered on 08/11/17 12:11; Admin Dose 81 MG; Start 08/11/17 at 11:30 JEANMARIE MALONEY NP Aug 11, 2017 22:11
--- NOTE | 2017-08-11 22:33 | CONS ---
Date/Time of Note Date/Time of Note DATE: 08/11/17 TIME: 22:22 Assessment/Plan Assessment/Plan Chief Complaint/Hosp Course IMPRESSION: 1. Preoperative evaluation prior to possible surgical vascular intervention.- negative trop x3/ NL EF by echo with no sig valve abnl 2. Hypertension. 3. Dyslipidemia. 4. Abnormal electrocardiogram with nonspecific ST and T-wave abnormalities. 5. Left lower extremity deep venous thrombosis status post inferior vena cava filter. Now with recurrent LE thrombosis requiring rep-eat lysis/thrombectomy and placement of perfusion catheter 6. Chronic obstructive pulmonary disease. 7. 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 Tachycardia-? S Tach recurrent after recurrent thrombosis requiring repeat thromobolysis/thrombectomy-ongoing/worse with standing. ?[id number]-[id number]-alt side filter/vol depletion/impaired venous return/deconditioning 9. Lung mass on CT Recc: -Tele -Continue Eliquis -Continue statin -Follow volume status closely and consider holding lasix to assure not intravascular depletion -check orthostatics -Continue low dose BB as tolerated and will change to atenolol for possible increased efficacy -? need for further imaging CTA/venogram Problems: Consultation Date/Type/Reason Admit Date/Time Jul 21, 2017 at 23:03 Initial Consult Date 07/23/17 Type of Consultation: cardiology Reason for Consultation tachycardia Referring Provider: SEBAS LALA MD Exam/Review of Systems Vital Signs Vitals Vital Signs Date Time Temp Pulse Resp B/P Pulse Ox O2 Delivery O2 Flow Rate FiO2 08/11/17 20:00 102 08/11/17 15:30 97.8 19 111/61 95 08/11/17 00:17 21 08/08/17 22:30 Room Air 08/07/17 20:43 2.0 Intake and Output 08/10/17 08/10/17 08/11/17 15:00 23:00 07:00 Intake Total 1000 ml Output Total 950 ml Balance 50 ml Exam Review of Systems: CONSTITUTIONAL: No fevers, chills. PULMONARY: No sob CARDIOVASCULAR: No chest pain/palpitations GASTROINTESTINAL: No nausea/vomiting. GENITOURINARY: No hematuria/dysuria. MUSCULOSKELETAL: No myagias/arthalgias. PSYCHIATRIC: The patient denies depression. NEUROLOGIC: No weakness Constitutional: alert, oriented Psych: no complaints Head: normocephalic ENMT: mucosa pink and moist Neck: jvd (8-9 cm water), supple Respiratory: clear to auscultation Cardiovascular: regular rate and rhythm Gastrointestinal: non-tender, soft Musculoskeletal: muscle weakness (mild generalized) Extremities: pitting pedal edema (R>L mild) Neurological: other (No focal deficits) Results Result Diagram: 08/11/1771808/11/1719 Results 24 hrs Laboratory Tests Test 08/11/17 07:19 White Blood Count 7.3 Red Blood Count 3.41 L Hemoglobin 9.2 L Hematocrit 29.6 L Mean Corpuscular Volume 86.8 Mean Corpuscular Hemoglobin 27.0 L Mean Corpuscular Hemoglobin Concent 31.1 L Red Cell Distribution Width 15.6 H Platelet Count 362 Mean Platelet Volume 9.5 Neutrophils % 63.6 Lymphocytes % 17.6 Monocytes % 12.4 H Eosinophils % 5.2 Basophils % 0.4 Nucleated Red Blood Cells % 0.0 Neutrophils # 4.6 Lymphocytes # 1.3 Monocytes # 0.9 Eosinophils # 0.4 Basophils # 0.0 Nucleated Red Blood Cells # 0.0 Sodium Level 140 Potassium Level 3.7 Chloride Level 103 Carbon Dioxide Level 30 Anion Gap 11 Blood Urea Nitrogen 9 Creatinine 0.71 Glucose Level 92 Calcium Level 8.4 Medications Medications Current Medications Dutasteride (Avodart) 0.5 mg DAILY PO Last administered on 08/11/17 09:11; Admin Dose 0.5 MG; Start 07/22/17 at 09:00 Gabapentin (Neurontin) 300 mg QHS PO Last administered on 08/10/17 20:57; Admin Dose 300 MG; Start 07/22/17 at 21:00 Salmeterol Xinafoate/ Fluticasone (Advair 250/50 Diskus) 1 inh BID INH Last administered on 08/08/17 09:16; Admin Dose 1 INH; Start 07/22/17 at 09:00 Atorvastatin Calcium (Lipitor) 10 mg QAM PO Last administered on 08/11/17 09: 11; Admin Dose 10 MG; Start 07/22/17 at 09:00 Acetaminophen (Tylenol Tab) 650 mg QID PRN PO PAIN LEVEL 1-5; Start 07/21/17 at 23:30 Ondansetron HCl (Zofran Inj) 4 mg Q6H PRN IV NAUSEA AND/OR VOMITING Last administered on 08/04/17 02:15; Admin Dose 4 MG; Start 07/21/17 at 23:30 Acetaminophen/ Hydrocodone Bitart ([place] (5/325)) 1 tab Q4H PRN PO PAIN LEVEL 4 -7 Last administered on 08/03/17 16:41; Admin Dose 1 TAB; Start 07/21/17 at 23:30 Docusate Sodium (Colace) 100 mg BID PO Last administered on 08/10/17 20:57; Admin Dose 100 MG; Start 07/28/17 at 21:00 Polyethylene Glycol (Miralax) 17 gm PRN PRN PO CONSTIPATION Last administered on 07/31/17 20:26; Admin Dose 17 GM; Start 07/28/17 at 15:00 Senna (Senokot) 1 tab DAILY PRN PO CONSTIPATION Last administered on 20:25; Admin Dose 1 TAB; Start 07/30/17 at 17:00 Mineral Oil (Mineral Oil) 30 ml BID PO Last administered on 08/05/17 08:57; Admin Dose 30 ML; Start 07/30/17 at 21:00 Furosemide (Lasix) 20 mg DAILY IV Last administered on 08/10/17 09:27; Admin Dose 20 MG; Start 08/01/17 at 09:00 Lorazepam (Ativan) 0.5 mg Q6H PRN IV ANXIETY Last administered on 08/11/17 15: 45; Admin Dose 0.5 MG; Start 08/01/17 at 19:00 Metoprolol Tartrate (Lopressor) 5 mg Q4H PRN IV ELEVATED HEART RATE; Start at 04:00 Levalbuterol (Xopenex Neb) 0.63 mg Q6H PRN HHN SHORTNESS OF BREATH Last administered on 08/09/17 18:20; Admin Dose 0.63 MG; Start 08/06/17 at 14:00 Acetaminophen/ Hydrocodone Bitart ([place] (5/325)) 2 tab Q4H PRN PO PAIN LEVEL 6 -10; Start 08/06/17 at 08:00 Lactobacillus Acidophilus/ Rhamnosus (Culturelle) 1 cap BID PO Last administered on 08/11/17 09:10; Admin Dose 1 CAP; Start 08/07/17 at 21:00 Apixaban (Eliquis) 10 mg BID PO Last administered on 08/11/17 09:11; Admin Dose 10 MG; Start 08/08/17 at 09:00 Azithromycin (Zithromax) 250 mg DAILY PO Last administered on 08/11/17 09:12; Admin Dose 250 MG; Start 08/08/17 at 09:00; Stop 08/12/17 at 12:00 Clopidogrel Bisulfate (plaVIX) 75 mg DAILY PO Last administered on 08/11/17 09 :12; Admin Dose 75 MG; Start 08/09/17 at 09:00 Metoprolol Tartrate (Lopressor) 50 mg BID PO ; Start 08/10/17 at 21:00 Famotidine (Pepcid) 20 mg BID PO Last administered on 08/11/17 09:10; Admin Dose 20 MG; Start 08/10/17 at 21:00 Aspirin (Halfprin) 81 mg DAILY PO Last administered on 08/11/17 12:11; Admin Dose 81 MG; Start 08/11/17 at 11:30 AIMEE LANDEROS Aug 11, 2017 22:32
[2017-08-12] VITALS (12 sets, daily range): BP systolic 98–115; BP diastolic 58–65; PULSE 98–104; RESP 16–18
[2017-08-12 07:29] LABS: BASOPHILS % 0.5 % (0.0-2.0); EOSINOPHILS # 0.5 10^3/ul (0.0-0.5); EOSINOPHILS % 7.3 % (0.0-7.0); HEMATOCRIT 30.4 % (42.0-52.0); HEMOGLOBIN 9.2 g/dl (14.0-18.0); LYMPHOCYTES # 1.2 10^3/ul (0.8-2.9); LYMPHOCYTES % 19.2 % (15.0-51.0); MEAN CORPUSCULAR HEMOGLOBIN 26.4 pg (29.0-33.0); MEAN CORPUSCULAR HGB CONC 30.3 g/dl (32.0-37.0); MEAN CORPUSCULAR VOLUME 87.1 fl (82.0-101.0); MEAN PLATELET VOLUME 9.2 fl (7.4-10.4); MONOCYTE # 0.8 10^3/ul (0.3-0.9); MONOCYTES % 12.7 % (0.0-11.0); NEUTROPHIL # 3.8 10^3/ul (1.6-7.5); NEUTROPHILS % 59.8 % (39.0-77.0); PLATELET COUNT 379 10^3/UL (140-415); RED BLOOD COUNT 3.49 10^6/ul (4.70-6.10); RED CELL DISTRIBUTION WIDTH 15.8 % (11.5-14.5); WHITE BLOOD COUNT 6.3 10^3/ul (4.8-10.8)
--- NOTE | 2017-08-12 07:46 | PN ---
DATE: 08/11/2017 PULMONARY FOLLOWUP NOTE REASON FOR FOLLOWUP: Solitary nodule. SUBJECTIVE: Mr. Abel is stable this morning. No shortness of breath, no chest pain, no palpita tions. No lower extremity pain. PHYSICAL EXAMINATION: VITAL SIGNS: Remain stable. Temperature 98, pulse is 105, blood pressure 101/61, O2 saturation 96% on room air. NECK: Supple. No JVD or lymphadenopathy. CARDIAC: S1, S2, no added sounds or murmurs. CHEST: Diminished air entry bilaterally. ABDOMEN: Soft, nontender. No guarding or rebound. EXTREMITIES: No cyanosis, clubbing, or edema. NEUROLOGIC: Grossly intact. No focal deficits. LABORATORY DATA: White count 7.3, hemoglobin 9.2, platelets of 362. Chemistry within normal limits . IMPRESSION AND PLAN: 1. Solitary pulmonary nodule concerning for possible malignancy. Will need PET scan as an outpatie nt and then possible biopsy when the patient is ready. 2. Significant thromboembolic disease status post IVC filter placement and removal of in-stent thro mbosis. PLAN: 1. Continue anticoagulation per vascular surgery. 2. Outpatient PET CT scan. 3. Consider discontinuing antibiotics. Dictated By: JAMES FRAGOSO/FERNIE Conf#: [id number] DID#: [id number]
[2017-08-12] MEDS: SALMETEROL/FLUTICASONE 250/50 INHA INH SCH ×2 (07:50→20:59)
[2017-08-12] MEDS: DOCUSATE SODIUM 100 MG CAP PO SCH ×2 (07:52→21:00)
[2017-08-12] MEDS: MINERAL OIL 30ML CUP PO SCH ×2 (07:54→20:59)
[2017-08-12 07:58] LABS: CALCIUM 8.8 mg/dl (8.4-10.2); CREATININE 0.74 mg/dl (0.61-1.24); POTASSIUM 3.9 mmol/L (3.5-5.1)
[2017-08-12] MEDS: ASPIRIN (EC) 81 MG TAB PO SCH (08:20)
[2017-08-12] MEDS: FAMOTIDINE 20 MG TAB PO SCH ×2 (08:21→21:01)
[2017-08-12] MEDS: APIXABAN 5 MG TABLET PO SCH ×2 (08:21→21:01)
[2017-08-12] MEDS: CLOPIDOGREL 75 MG TAB PO SCH (08:21)
[2017-08-12] MEDS: DUTASTERIDE 0.5 MG CAP PO SCH (08:21)
[2017-08-12] MEDS: LACTOBACILLUS RHAMNOSUS CAP PO SCH ×2 (08:21→21:01)
[2017-08-12] MEDS: ATORVASTATIN 10 MG TAB PO SCH (08:21)
[2017-08-12] MEDS: LORAZEPAM 2 MG INJ IV PRN ×3 (08:21→21:02)
[2017-08-12] MEDS: ATENOLOL 25 MG TAB PO SCH ×2 (08:22→21:02)
[2017-08-12] MEDS: AZITHROMYCIN 250 MG TAB PO SCH (08:36)
--- NOTE | 2017-08-12 10:51 | CONS ---
Date/Time of Note Date/Time of Note DATE: 08/12/17 TIME: 10:49 Assessment/Plan Assessment/Plan Additional Assessment/Plan 1. Preoperative evaluation prior to possible surgical vascular intervention.- negative trop x3/ NL EF by echo with no sig valve abnl - tolerated well 2. Hypertension- well controlled now 3. Dyslipidemia. 4. Abnormal electrocardiogram with nonspecific ST and T-wave abnormalities- no CP noted. 5. Left lower extremity deep venous thrombosis status post inferior vena cava filter. Now with recurrent LE thrombosis requiring rep-eat lysis/thrombectomy and placement of perfusion catheter - vascular follows 6. Chronic obstructive pulmonary disease. 7. 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 Tachycardia-? S Tach recurrent after recurrent thrombosis requiring repeat thromobolysis/thrombectomy-ongoing/worse with standing. ?[id number]-fvuxac-zhjho-alt side filter/vol depletion/impaired venous return/deconditioning 9. Lung mass on CT Consultation Date/Type/Reason Admit Date/Time Jul 21, 2017 at 23:03 Initial Consult Date 07/23/17 Type of Consultation: cardiology Referring Provider: SEBAS LALA MD 24 HR Interval Summary Free Text/Dictation Pt stable - no ectopy on tele - pain controlled - dispo planned ROS: No fever, no chills, no nausea, no vomiting, no diarrhea/constipation No recent weight changes No chest pain, no PND, no orthopnea + SOB, chronic No dizziness, blurred vision No thirst, no heat or cold intolerance Exam/Review of Systems Vital Signs Vitals Vital Signs Date Time Temp Pulse Resp B/P Pulse Ox O2 Delivery O2 Flow Rate FiO2 08/12/17 08:13 99 08/12/17 07:28 98.2 18 115/65 98 08/11/17 00:17 21 08/08/17 22:30 Room Air Intake and Output 08/11/17 08/11/17 08/12/17 15:00 23:00 07:00 Intake Total 300 ml 200 ml 150 ml Output Total 900 ml 500 ml Balance -600 ml 200 ml -350 ml Exam General: WN/WD/NAD, AOx 3 HEENT: Unicetric/atraumatic/EOMI (follow commands) NECK: JVD elevated, no thyromegaly Lymph: no lymphadenopathy HEART: regular with no S3, II/ systolic murmur at apex LUNGS: Coarse sounds ABD: soft, NT, ND, +BS : Intact Neuro: non focal SKIN: chronic changes EXT: trace edema left, 2+ right - chronic Results Result Diagram: 08/12/17 0655 08/12/17 0655 Results 24 hrs Laboratory Tests Test 08/12/17 06:55 08/12/17 10:49 White Blood Count 6.3 Red Blood Count 3.49 L Hemoglobin 9.2 L Hematocrit 30.4 L Mean Corpuscular Volume 87.1 Mean Corpuscular Hemoglobin 26.4 L Mean Corpuscular Hemoglobin Concent 30.3 L Red Cell Distribution Width 15.8 H Platelet Count 379 Mean Platelet Volume 9.2 Neutrophils % 59.8 Lymphocytes % 19.2 Monocytes % 12.7 H Eosinophils % 7.3 H Basophils % 0.5 Nucleated Red Blood Cells % 0.0 Neutrophils # 3.8 Lymphocytes # 1.2 Monocytes # 0.8 Eosinophils # 0.5 Basophils # 0.0 Nucleated Red Blood Cells # 0.0 Sodium Level 141 Potassium Level 3.9 Chloride Level 104 Carbon Dioxide Level 32 H Anion Gap 9 Blood Urea Nitrogen 9 Creatinine 0.74 Glucose Level 91 Calcium Level 8.8 Lab Scanned Report REFERENCE LAB Medications Medications Current Medications Dutasteride (Avodart) 0.5 mg DAILY PO Last administered on 08/12/17 08:21; Admin Dose 0.5 MG; Start 07/22/17 at 09:00 Gabapentin (Neurontin) 300 mg QHS PO Last administered on 08/10/17 20:57; Admin Dose 300 MG; Start 07/22/17 at 21:00 Salmeterol Xinafoate/ Fluticasone (Advair 250/50 Diskus) 1 inh BID INH Last administered on 08/08/17 09:16; Admin Dose 1 INH; Start 07/22/17 at 09:00 Atorvastatin Calcium (Lipitor) 10 mg QAM PO Last administered on 08/12/17 08: 21; Admin Dose 10 MG; Start 07/22/17 at 09:00 Acetaminophen (Tylenol Tab) 650 mg QID PRN PO PAIN LEVEL 1-5; Start 07/21/17 at 23:30 Ondansetron HCl (Zofran Inj) 4 mg Q6H PRN IV NAUSEA AND/OR VOMITING Last administered on 08/04/17 02:15; Admin Dose 4 MG; Start 07/21/17 at 23:30 Acetaminophen/ Hydrocodone Bitart ([place] (5/325)) 1 tab Q4H PRN PO PAIN LEVEL 4 -7 Last administered on 08/03/17 16:41; Admin Dose 1 TAB; Start 07/21/17 at 23:30 Docusate Sodium (Colace) 100 mg BID PO Last administered on 08/10/17 20:57; Admin Dose 100 MG; Start 07/28/17 at 21:00 Polyethylene Glycol (Miralax) 17 gm PRN PRN PO CONSTIPATION Last administered on 07/31/17 20:26; Admin Dose 17 GM; Start 07/28/17 at 15:00 Senna (Senokot) 1 tab DAILY PRN PO CONSTIPATION Last administered on 20:25; Admin Dose 1 TAB; Start 07/30/17 at 17:00 Mineral Oil (Mineral Oil) 30 ml BID PO Last administered on 08/05/17 08:57; Admin Dose 30 ML; Start 07/30/17 at 21:00 Furosemide (Lasix) 20 mg DAILY IV Last administered on 08/10/17 09:27; Admin Dose 20 MG; Start 08/01/17 at 09:00; Status Future Hold Lorazepam (Ativan) 0.5 mg Q6H PRN IV ANXIETY Last administered on 08/12/17 08: 21; Admin Dose 0.5 MG; Start 08/01/17 at 19:00 Metoprolol Tartrate (Lopressor) 5 mg Q4H PRN IV ELEVATED HEART RATE; Start at 04:00 Levalbuterol (Xopenex Neb) 0.63 mg Q6H PRN HHN SHORTNESS OF BREATH Last administered on 08/09/17 18:20; Admin Dose 0.63 MG; Start 08/06/17 at 14:00 Acetaminophen/ Hydrocodone Bitart ([place] (5/325)) 2 tab Q4H PRN PO PAIN LEVEL 6 -10; Start 08/06/17 at 08:00 Lactobacillus Acidophilus/ Rhamnosus (Culturelle) 1 cap BID PO Last administered on 08/12/17 08:21; Admin Dose 1 CAP; Start 08/07/17 at 21:00 Apixaban (Eliquis) 10 mg BID PO Last administered on 08/12/17 08:21; Admin Dose 10 MG; Start 08/08/17 at 09:00 Azithromycin (Zithromax) 250 mg DAILY PO Last administered on 08/12/17 08:36; Admin Dose 250 MG; Start 08/08/17 at 09:00; Stop 08/12/17 at 12:00 Clopidogrel Bisulfate (plaVIX) 75 mg DAILY PO Last administered on 08/12/17 08 :21; Admin Dose 75 MG; Start 08/09/17 at 09:00 Famotidine (Pepcid) 20 mg BID PO Last administered on 08/12/17 08:21; Admin Dose 20 MG; Start 08/10/17 at 21:00 Aspirin (Halfprin) 81 mg DAILY PO Last administered on 08/12/17 08:20; Admin Dose 81 MG; Start 08/11/17 at 11:30 Atenolol (Tenormin) 25 mg BID PO ; Start 08/12/17 at 09:00 KRISTYN FLOR MD Aug 12, 2017 10:51
--- NOTE | 2017-08-12 11:21 | CONS ---
Date/Time of Note Date/Time of Note DATE: 08/12/17 TIME: 11:20 Consult Date/Type/Reason Admit Date/Time Jul 21, 2017 at 23:03 Initial Consult Date 08/01/17 Type of Consultation: Pulmonary Ordering Provider: SEBAS LALA MD Subjective Patient anxious to go home. Objective Vital Signs Date Time Temp Pulse Resp B/P Pulse Ox O2 Delivery O2 Flow Rate FiO2 08/12/17 08:13 99 08/12/17 07:28 98.2 18 115/65 98 08/11/17 00:17 21 08/08/17 22:30 Room Air Intake and Output 08/11/17 08/11/17 08/12/17 15:00 23:00 07:00 Intake Total 300 ml 200 ml 150 ml Output Total 900 ml 500 ml Balance -600 ml 200 ml -350 ml Exam PHYSICAL EXAMINATION: VITAL SIGNS: Comfortable on room air oxygen. NECK: Supple. No JVD or lymphadenopathy. CARDIAC: S1, S2, no added sounds or murmurs. CHEST: Diminished air entry bilaterally. ABDOMEN: Soft, nontender. No guarding or rebound. EXTREMITIES: No cyanosis, clubbing, or edema. NEUROLOGIC: Grossly intact. No focal deficits. Results/Medications Result Diagram: 08/12/17 0655 08/12/17 0655 Results 24 hrs Laboratory Tests Test 08/12/17 06:55 08/12/17 10:49 White Blood Count 6.3 Red Blood Count 3.49 L Hemoglobin 9.2 L Hematocrit 30.4 L Mean Corpuscular Volume 87.1 Mean Corpuscular Hemoglobin 26.4 L Mean Corpuscular Hemoglobin Concent 30.3 L Red Cell Distribution Width 15.8 H Platelet Count 379 Mean Platelet Volume 9.2 Neutrophils % 59.8 Lymphocytes % 19.2 Monocytes % 12.7 H Eosinophils % 7.3 H Basophils % 0.5 Nucleated Red Blood Cells % 0.0 Neutrophils # 3.8 Lymphocytes # 1.2 Monocytes # 0.8 Eosinophils # 0.5 Basophils # 0.0 Nucleated Red Blood Cells # 0.0 Sodium Level 141 Potassium Level 3.9 Chloride Level 104 Carbon Dioxide Level 32 H Anion Gap 9 Blood Urea Nitrogen 9 Creatinine 0.74 Glucose Level 91 Calcium Level 8.8 Lab Scanned Report REFERENCE LAB Medications Current Medications Dutasteride (Avodart) 0.5 mg DAILY PO Last administered on 08/12/17 08:21; Admin Dose 0.5 MG; Start 07/22/17 at 09:00 Gabapentin (Neurontin) 300 mg QHS PO Last administered on 08/10/17 20:57; Admin Dose 300 MG; Start 07/22/17 at 21:00 Salmeterol Xinafoate/ Fluticasone (Advair 250/50 Diskus) 1 inh BID INH Last administered on 08/08/17 09:16; Admin Dose 1 INH; Start 07/22/17 at 09:00 Atorvastatin Calcium (Lipitor) 10 mg QAM PO Last administered on 08/12/17 08: 21; Admin Dose 10 MG; Start 07/22/17 at 09:00 Acetaminophen (Tylenol Tab) 650 mg QID PRN PO PAIN LEVEL 1-5; Start 07/21/17 at 23:30 Ondansetron HCl (Zofran Inj) 4 mg Q6H PRN IV NAUSEA AND/OR VOMITING Last administered on 08/04/17 02:15; Admin Dose 4 MG; Start 07/21/17 at 23:30 Acetaminophen/ Hydrocodone Bitart ([place] (5/325)) 1 tab Q4H PRN PO PAIN LEVEL 4 -7 Last administered on 08/03/17 16:41; Admin Dose 1 TAB; Start 07/21/17 at 23:30 Docusate Sodium (Colace) 100 mg BID PO Last administered on 08/10/17 20:57; Admin Dose 100 MG; Start 07/28/17 at 21:00 Polyethylene Glycol (Miralax) 17 gm PRN PRN PO CONSTIPATION Last administered on 07/31/17 20:26; Admin Dose 17 GM; Start 07/28/17 at 15:00 Senna (Senokot) 1 tab DAILY PRN PO CONSTIPATION Last administered on 20:25; Admin Dose 1 TAB; Start 07/30/17 at 17:00 Mineral Oil (Mineral Oil) 30 ml BID PO Last administered on 08/05/17 08:57; Admin Dose 30 ML; Start 07/30/17 at 21:00 Furosemide (Lasix) 20 mg DAILY IV Last administered on 08/10/17 09:27; Admin Dose 20 MG; Start 08/01/17 at 09:00; Status Future Hold Lorazepam (Ativan) 0.5 mg Q6H PRN IV ANXIETY Last administered on 08/12/17 08: 21; Admin Dose 0.5 MG; Start 08/01/17 at 19:00 Metoprolol Tartrate (Lopressor) 5 mg Q4H PRN IV ELEVATED HEART RATE; Start at 04:00 Levalbuterol (Xopenex Neb) 0.63 mg Q6H PRN HHN SHORTNESS OF BREATH Last administered on 08/09/17 18:20; Admin Dose 0.63 MG; Start 08/06/17 at 14:00 Acetaminophen/ Hydrocodone Bitart ([place] (5/325)) 2 tab Q4H PRN PO PAIN LEVEL 6 -10; Start 08/06/17 at 08:00 Lactobacillus Acidophilus/ Rhamnosus (Culturelle) 1 cap BID PO Last administered on 08/12/17 08:21; Admin Dose 1 CAP; Start 08/07/17 at 21:00 Apixaban (Eliquis) 10 mg BID PO Last administered on 08/12/17 08:21; Admin Dose 10 MG; Start 08/08/17 at 09:00 Azithromycin (Zithromax) 250 mg DAILY PO Last administered on 08/12/17 08:36; Admin Dose 250 MG; Start 08/08/17 at 09:00; Stop 08/12/17 at 12:00 Clopidogrel Bisulfate (plaVIX) 75 mg DAILY PO Last administered on 08/12/17 08 :21; Admin Dose 75 MG; Start 08/09/17 at 09:00 Famotidine (Pepcid) 20 mg BID PO Last administered on 08/12/17 08:21; Admin Dose 20 MG; Start 08/10/17 at 21:00 Aspirin (Halfprin) 81 mg DAILY PO Last administered on 08/12/17 08:20; Admin Dose 81 MG; Start 08/11/17 at 11:30 Atenolol (Tenormin) 25 mg BID PO ; Start 08/12/17 at 09:00 Assessment/Plan Chief Complaint/Hosp Course IMPRESSION AND PLAN: 1. Solitary pulmonary nodule concerning for possible malignancy. Will need PET scan as an outpatient and then possible biopsy when the patient is ready. 2. Significant thromboembolic disease status post IVC filter placement and removal of in-stent thrombosis. PLAN: 1. Continue anticoagulation per vascular surgery. 2. Outpatient PET CT scan. 3. Consider discontinuing antibiotics. Discharge okay from pulmonary standpoint. Discussed with primary team. Problems: JAMES HOSKINS MD, [facility] Aug 12, 2017 11:21
[2017-08-12] MEDS ORDERED: ATEN-51 PO (12:51)
[2017-08-12] MEDS ORDERED: HYDR-3498 PO (13:13)
--- NOTE | 2017-08-12 13:45 | PN ---
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 -S/P Right fem-pop Stent grafting and Aortoiliac angiogram 07/23/2017 -Bilateral lower extremity acute venous thrombosis involving CFV, iliac veins and IVC: It seems the patient may have failed with Coumadin therapy as he had previous acute onsets of venous thrombosis with therapeutic INR's. Given the new findings of his CT scan of the lung, concern of cancer given his smoking history is there especially being hypercoagulable and failed Coumadin therapy 07/23/2017: -S/P Bilateral lower extremity venogram -S/P Bilateral CI, EI, CF veins and caval mechanical thrombectomy -S/P Thrombolysis Catheters 07/24/2017: -S/P Bilateral lysis check 07/25/2017 -S/P Bilateral Lysis check & removal of catheters 08/03/2017 - Patient had delayed transition of anticoagulation IV -> PO -S/P RLE angiogram, mechanical thrombectomy and thrombolysis -S/P RLE venogram, lysis catheter placement 08/04/2017 -S/P Lysis check 08/06/2017 -S/P lysis check, -S/P Iliocaval mechanical thrombectomy -S/P Removal of RLE arterial catheter 08/07/2017 -S/P Lysis check -S/P Iliocaval mechanical thrombectomy -S/P Removal of RLE venous catheter -Started Eliquis 10mg PO BID x 7days -Will also treat patient with dual antiplatelet therapy ASA and Plavix -Appreciate hematology Evaluation -Recommend for a lung biopsy given the CT chest findings to rule out any underlying tumors (possible cause of worsened hypercoagulable state) when patient is more stable -Continue neurovascular checks Q4 -D/C planning - will need insurance clearance for Eliquis prior to discharge -OOB and FWB with pt/ot -Optimize vascular status (BP meds, diet, nutrition, exercise, sugar control, antiplatelets). -Discussed findings, plan and management with the patient and he understands. -Discussed limb salvage and realistic outcomes of our current findings and the possibility of limb loss with the patient. Patient fully understands the current findings of his hypercoagulable state and possibility of limb loss. Further, spoken with his family and the patient regarding serial interventions that may be needed and increased risks of intracranial hemorrhage, , stroke , [place], infection, thrombosis, device malfunction. We have discussed the plans with our multidisciplinary team and will continue our management per their recommendations -Thank you for allowing us to partake in the care of your patient. Please call with any questions. Problems: Subjective 24 Hr Interval Summary no new vascular events overnight, OOB and FWB Exam/Review of Systems Vital Signs Vitals Vital Signs Date Time Temp Pulse Resp B/P Pulse Ox O2 Delivery O2 Flow Rate FiO2 08/12/17 12:16 104 08/12/17 12:12 97.9 16 98/60 96 08/11/17 00:17 21 08/08/17 22:30 Room Air Intake and Output 08/11/17 08/11/17 08/12/17 15:00 23:00 07:00 Intake Total 300 ml 200 ml 150 ml Output Total 900 ml 500 ml Balance -600 ml 200 ml -350 ml Exam Free Text/Dictation GENERAL: Alert and oriented x3, PULMONARY: Coarse breath sounds bilaterally CARDIOVASCULAR: S1, S2 present ABDOMEN: Soft, nontender, nondistended. Bowel sounds positive. EXTREMITIES: -Right lower extremity palpable femoral pulse, palpable pedal (DP) pulse. Motor and sensory intact, Capillary refill 3, edema 2-3+ and soft improved -Left lower extremity, palpable femoral pulse, palpable pedal pulse. Motor and sensory intact. Capillary refill 3 -Bilateral groins soft Results Result Diagram: 08/12/17 0655 08/12/17 0655 MATT MCCULLOUGH MD Aug 12, 2017 13:45
--- NOTE | 2017-08-12 14:58 | CONS ---
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 , S/p R fem-pop stent grafting and aortoiliac angiogram and S/p BLE thrombectomy (pt had multiple lysis checks and thrombectomies with latest on 08/07/2017) - H/o DVT s/p IVC filter - RUL mass-like lesion concerning for malignancy/Pulmonary nodule with possible PNA per pulmonary - declining biopsy, s/p empiric azithromycin - Bilateral adrenal nodules concerning for malignancy per CT - COPD/emphysema - Hypercoagulation - Dyslipidemia - Debility d/t prolonged hospitalization - improving - Tachycardia - Anxiety Recommendations: - monitor closely off antibiotics - pending: cocci (08/07 in process), crypto (not detected) - continue probiotics - okay from ID standpoint for DC home -awaiting cardiac clearance Management d/w patient, SHAWN Maciel, and Dr. Faria Therapeutic time provided Consultation Date/Type/Reason Admit Date/Time Jul 21, 2017 at 23:03 Initial Consult Date 08/01/17 Type of Consultation: INFECTIOUS DISEASE Referring Provider: SEBAS LALA MD 24 HR Interval Summary Free Text/Dictation - Pt got extremely anxious to go home- got Ativan, WBC wnl, afebrile, last day of Azithromycin today. - Had episode of sustained tachycardia, HR 150's yesterday during ambulation earlier and awaiting - HR 96 now - cardiac clearance per d/w nursing staff. - no CP, SOB, n/v/d, dysuria, fever reported - staff Constitutional: improved Exam/Review of Systems Vital Signs Vitals Vital Signs Date Time Temp Pulse Resp B/P Pulse Ox O2 Delivery O2 Flow Rate FiO2 08/12/17 12:16 104 08/12/17 12:12 97.9 16 98/60 96 08/11/17 00:17 21 08/08/17 22:30 Room Air Intake and Output 08/11/17 08/11/17 08/12/17 15:00 23:00 07:00 Intake Total 300 ml 200 ml 150 ml Output Total 900 ml 500 ml Balance -600 ml 200 ml -350 ml Exam Constitutional: alert, oriented, well developed Psych: nl mood/affect Respiratory: diminished breath sounds, normal air movement Cardiovascular: nl pulses Gastrointestinal: non-tender, soft Musculoskeletal: nl extremities to inspection Extremities: normal pulses Neurological: nl mental status, nl speech Results Result Diagram: 08/12/17 0655 08/12/17 0655 Results 24 hrs Laboratory Tests Test 08/12/17 06:55 08/12/17 10:49 White Blood Count 6.3 Red Blood Count 3.49 L Hemoglobin 9.2 L Hematocrit 30.4 L Mean Corpuscular Volume 87.1 Mean Corpuscular Hemoglobin 26.4 L Mean Corpuscular Hemoglobin Concent 30.3 L Red Cell Distribution Width 15.8 H Platelet Count 379 Mean Platelet Volume 9.2 Neutrophils % 59.8 Lymphocytes % 19.2 Monocytes % 12.7 H Eosinophils % 7.3 H Basophils % 0.5 Nucleated Red Blood Cells % 0.0 Neutrophils # 3.8 Lymphocytes # 1.2 Monocytes # 0.8 Eosinophils # 0.5 Basophils # 0.0 Nucleated Red Blood Cells # 0.0 Sodium Level 141 Potassium Level 3.9 Chloride Level 104 Carbon Dioxide Level 32 H Anion Gap 9 Blood Urea Nitrogen 9 Creatinine 0.74 Glucose Level 91 Calcium Level 8.8 Lab Scanned Report REFERENCE LAB Medications Medications Current Medications Dutasteride (Avodart) 0.5 mg DAILY PO Last administered on 08/12/17 08:21; Admin Dose 0.5 MG; Start 07/22/17 at 09:00 Gabapentin (Neurontin) 300 mg QHS PO Last administered on 08/10/17 20:57; Admin Dose 300 MG; Start 07/22/17 at 21:00 Salmeterol Xinafoate/ Fluticasone (Advair 250/50 Diskus) 1 inh BID INH Last administered on 08/08/17 09:16; Admin Dose 1 INH; Start 07/22/17 at 09:00 Atorvastatin Calcium (Lipitor) 10 mg QAM PO Last administered on 08/12/17 08: 21; Admin Dose 10 MG; Start 07/22/17 at 09:00 Acetaminophen (Tylenol Tab) 650 mg QID PRN PO PAIN LEVEL 1-5; Start 07/21/17 at 23:30 Ondansetron HCl (Zofran Inj) 4 mg Q6H PRN IV NAUSEA AND/OR VOMITING Last administered on 08/04/17 02:15; Admin Dose 4 MG; Start 07/21/17 at 23:30 Acetaminophen/ Hydrocodone Bitart ([place] (5/325)) 1 tab Q4H PRN PO PAIN LEVEL 4 -7 Last administered on 08/03/17 16:41; Admin Dose 1 TAB; Start 07/21/17 at 23:30 Docusate Sodium (Colace) 100 mg BID PO Last administered on 08/10/17 20:57; Admin Dose 100 MG; Start 07/28/17 at 21:00 Polyethylene Glycol (Miralax) 17 gm PRN PRN PO CONSTIPATION Last administered on 07/31/17 20:26; Admin Dose 17 GM; Start 07/28/17 at 15:00 Senna (Senokot) 1 tab DAILY PRN PO CONSTIPATION Last administered on 20:25; Admin Dose 1 TAB; Start 07/30/17 at 17:00 Mineral Oil (Mineral Oil) 30 ml BID PO Last administered on 08/05/17 08:57; Admin Dose 30 ML; Start 07/30/17 at 21:00 Furosemide (Lasix) 20 mg DAILY IV Last administered on 08/10/17 09:27; Admin Dose 20 MG; Start 08/01/17 at 09:00; Status Future Hold Lorazepam (Ativan) 0.5 mg Q6H PRN IV ANXIETY Last administered on 08/12/17 14: 43; Admin Dose 0.5 MG; Start 08/01/17 at 19:00 Metoprolol Tartrate (Lopressor) 5 mg Q4H PRN IV ELEVATED HEART RATE; Start at 04:00 Levalbuterol (Xopenex Neb) 0.63 mg Q6H PRN HHN SHORTNESS OF BREATH Last administered on 08/09/17 18:20; Admin Dose 0.63 MG; Start 08/06/17 at 14:00 Acetaminophen/ Hydrocodone Bitart ([place] (5/325)) 2 tab Q4H PRN PO PAIN LEVEL 6 -10; Start 08/06/17 at 08:00 Lactobacillus Acidophilus/ Rhamnosus (Culturelle) 1 cap BID PO Last administered on 08/12/17 08:21; Admin Dose 1 CAP; Start 08/07/17 at 21:00 Apixaban (Eliquis) 10 mg BID PO Last administered on 08/12/17 08:21; Admin Dose 10 MG; Start 08/08/17 at 09:00 Clopidogrel Bisulfate (plaVIX) 75 mg DAILY PO Last administered on 08/12/17 08 :21; Admin Dose 75 MG; Start 08/09/17 at 09:00 Famotidine (Pepcid) 20 mg BID PO Last administered on 08/12/17 08:21; Admin Dose 20 MG; Start 08/10/17 at 21:00 Aspirin (Halfprin) 81 mg DAILY PO Last administered on 08/12/17 08:20; Admin Dose 81 MG; Start 08/11/17 at 11:30 Atenolol (Tenormin) 25 mg BID PO ; Start 08/12/17 at 09:00 JOSIE CHENG Aug 12, 2017 14:58
--- NOTE | 2017-08-12 18:07 | PN ---
Date/Time of Note Date/Time of Note DATE: 08/12/17 TIME: 18:05 Assessment/Plan VTE Prophylaxis VTE Prophylaxis Intervention: SCD's Lines/Catheters IV [facility]ter Type (from [facility]): Saline Lock Urinary Cath still in place: No Assessment/Plan Chief Complaint/Hosp Course Patient heart rate improved, patient is really eager to go home cleared by cardiology. Case management called for obtaining authorization for Eliquis. Anticipate discharge home. 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 Dr. Mendiola is following in vascular surgery consultation. status post heparin drip. Continue Eliquis, aspirin and Plavix. -Hypercoagulation work up is neg, Dr Amaya is following in hematology consultation. 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 Patient refused lung biopsy at this time. Dr Garay is following in pulmonology consultation. Continue Zithromax with this recommendation for follow-up CT in [address] as an outpatient and biopsy when he is comfortable. -COPD, continue Advair -Dyslipidemia -BPH Further recommendations based on clinical course. Plan of care discussed with Dr. Drake Problems: Exam/Review of Systems Vital Signs Vitals Vital Signs Date Time Temp Pulse Resp B/P Pulse Ox O2 Delivery O2 Flow Rate FiO2 08/12/17 16:02 100 08/12/17 15:29 98.0 18 98/60 94 08/11/17 00:17 21 08/08/17 22:30 Room Air Intake and Output 08/11/17 08/11/17 08/12/17 15:00 23:00 07:00 Intake Total 300 ml 200 ml 150 ml Output Total 900 ml 500 ml Balance -600 ml 200 ml -350 ml Exam Constitutional: alert, oriented Respiratory: normal air movement Cardiovascular: nl pulses Gastrointestinal: non-tender, soft Musculoskeletal: nl extremities to inspection Extremities: edema RLE Neurological: nl mental status Results Result Diagram: 08/12/17 0655 08/12/17 0655 Results 24 hrs Laboratory Tests Test 08/12/17 06:55 08/12/17 10:49 White Blood Count 6.3 Red Blood Count 3.49 L Hemoglobin 9.2 L Hematocrit 30.4 L Mean Corpuscular Volume 87.1 Mean Corpuscular Hemoglobin 26.4 L Mean Corpuscular Hemoglobin Concent 30.3 L Red Cell Distribution Width 15.8 H Platelet Count 379 Mean Platelet Volume 9.2 Neutrophils % 59.8 Lymphocytes % 19.2 Monocytes % 12.7 H Eosinophils % 7.3 H Basophils % 0.5 Nucleated Red Blood Cells % 0.0 Neutrophils # 3.8 Lymphocytes # 1.2 Monocytes # 0.8 Eosinophils # 0.5 Basophils # 0.0 Nucleated Red Blood Cells # 0.0 Sodium Level 141 Potassium Level 3.9 Chloride Level 104 Carbon Dioxide Level 32 H Anion Gap 9 Blood Urea Nitrogen 9 Creatinine 0.74 Glucose Level 91 Calcium Level 8.8 Lab Scanned Report REFERENCE LAB Medications Medications Current Medications Dutasteride (Avodart) 0.5 mg DAILY PO Last administered on 08/12/17 08:21; Admin Dose 0.5 MG; Start 07/22/17 at 09:00 Gabapentin (Neurontin) 300 mg QHS PO Last administered on 08/10/17 20:57; Admin Dose 300 MG; Start 07/22/17 at 21:00 Salmeterol Xinafoate/ Fluticasone (Advair 250/50 Diskus) 1 inh BID INH Last administered on 08/08/17 09:16; Admin Dose 1 INH; Start 07/22/17 at 09:00 Atorvastatin Calcium (Lipitor) 10 mg QAM PO Last administered on 08/12/17 08: 21; Admin Dose 10 MG; Start 07/22/17 at 09:00 Acetaminophen (Tylenol Tab) 650 mg QID PRN PO PAIN LEVEL 1-5; Start 07/21/17 at 23:30 Ondansetron HCl (Zofran Inj) 4 mg Q6H PRN IV NAUSEA AND/OR VOMITING Last administered on 08/04/17 02:15; Admin Dose 4 MG; Start 07/21/17 at 23:30 Acetaminophen/ Hydrocodone Bitart ([place] (5/325)) 1 tab Q4H PRN PO PAIN LEVEL 4 -7 Last administered on 08/03/17 16:41; Admin Dose 1 TAB; Start 07/21/17 at 23:30 Docusate Sodium (Colace) 100 mg BID PO Last administered on 08/10/17 20:57; Admin Dose 100 MG; Start 07/28/17 at 21:00 Polyethylene Glycol (Miralax) 17 gm PRN PRN PO CONSTIPATION Last administered on 07/31/17 20:26; Admin Dose 17 GM; Start 07/28/17 at 15:00 Senna (Senokot) 1 tab DAILY PRN PO CONSTIPATION Last administered on 20:25; Admin Dose 1 TAB; Start 07/30/17 at 17:00 Mineral Oil (Mineral Oil) 30 ml BID PO Last administered on 08/05/17 08:57; Admin Dose 30 ML; Start 07/30/17 at 21:00 Furosemide (Lasix) 20 mg DAILY IV Last administered on 08/10/17 09:27; Admin Dose 20 MG; Start 08/01/17 at 09:00; Status Future Hold Lorazepam (Ativan) 0.5 mg Q6H PRN IV ANXIETY Last administered on 08/12/17 14: 43; Admin Dose 0.5 MG; Start 08/01/17 at 19:00 Metoprolol Tartrate (Lopressor) 5 mg Q4H PRN IV ELEVATED HEART RATE; Start at 04:00 Levalbuterol (Xopenex Neb) 0.63 mg Q6H PRN HHN SHORTNESS OF BREATH Last administered on 08/09/17 18:20; Admin Dose 0.63 MG; Start 08/06/17 at 14:00 Acetaminophen/ Hydrocodone Bitart ([place] (5/325)) 2 tab Q4H PRN PO PAIN LEVEL 6 -10; Start 08/06/17 at 08:00 Lactobacillus Acidophilus/ Rhamnosus (Culturelle) 1 cap BID PO Last administered on 08/12/17 08:21; Admin Dose 1 CAP; Start 08/07/17 at 21:00 Apixaban (Eliquis) 10 mg BID PO Last administered on 08/12/17 08:21; Admin Dose 10 MG; Start 08/08/17 at 09:00 Clopidogrel Bisulfate (plaVIX) 75 mg DAILY PO Last administered on 08/12/17 08 :21; Admin Dose 75 MG; Start 08/09/17 at 09:00 Famotidine (Pepcid) 20 mg BID PO Last administered on 08/12/17 08:21; Admin Dose 20 MG; Start 08/10/17 at 21:00 Aspirin (Halfprin) 81 mg DAILY PO Last administered on 08/12/17 08:20; Admin Dose 81 MG; Start 08/11/17 at 11:30 Atenolol (Tenormin) 25 mg BID PO ; Start 08/12/17 at 09:00 LISETTE MEDINA Aug 12, 2017 18:07
--- NOTE | 2017-08-12 18:13 | DS ---
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 Patient is on Coumadin with therapeutic INR on admission. Patient was undergoing evaluation of right lower extremity pain and underwent angiogram on July [address] Mendiola. Patient developed right lower extremity severe pain especially with ambulation. Patient underwent abdominal angiogram which revealed bilateral popliteal artery aneurysm with right popliteal artery aneurysm measures 3.5 cm in transverse diameter with luminal thrombus resulting in high-grade stenosis of the patent lumen. Patient denies any fever chills, patient denies any chest pain denies shortness of breath denies abdominal pain. Patient is admitted for further evaluation and management. 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 Dr. Mendiola is following in vascular surgery consultation. S/p multiple vascular interventions by Dr. Mendiola: 07/23/2017: -S/P Bilateral lower extremity venogram -S/P Bilateral CI, EI, CF veins and caval mechanical thrombectomy -S/P Thrombolysis Catheters 07/24/2017: -S/P Bilateral lysis check 07/25/2017 -S/P Bilateral Lysis check & removal of catheters 08/03/2017 - Patient had delayed transition of anticoagulation IV -> PO -S/P RLE angiogram, mechanical thrombectomy and thrombolysis -S/P RLE venogram, lysis catheter placement 08/04/2017 -S/P Lysis check 08/06/2017 -S/P lysis check, -S/P Iliocaval mechanical thrombectomy -S/P Removal of RLE arterial catheter 08/07/2017 -S/P Lysis check -S/P Iliocaval mechanical thrombectomy -S/P Removal of RLE venous catheter -Started Eliquis 10mg PO BID x 7days -Will also treat patient with dual antiplatelet therapy ASA and Plavix -Hypercoagulation work up is neg, Dr Amaya is following in hematology consultation. 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 Patient refused lung biopsy at this time. Dr Garay is following in pulmonology consultation. Continue Zithromax with this recommendation for follow-up CT in [address] as an outpatient and biopsy when he is comfortable. -COPD, continue Advair -Dyslipidemia, continue statin. -BPH Home Meds Active Scripts Atenolol* (Atenolol*) 25 Mg Tablet, 25 MG PO BID for 30 Days, TAB Prov:LISETTE MEDINA 08/12/17 Reported Medications Budesonide-Formoterol Fumarate* (Symbicort*) 160-4.5 Hfa.aer.ad, 2 PUFF INHALATION BID, #1 EACH 07/21/17 Testosterone* (Androgel*) 1.62%-75gm Gel.counterintelligence analyst, 0 TD DAILY, EA scotty 2pumps topically aa daily 06/08/17 Dutasteride* (Avodart*) 0.5 Mg Capsule, 0.5 MG PO DAILY, CAP 06/08/17 Gabapentin* (Gabapentin*) 300 Mg Capsule, 300 MG PO QHS, #90 CAP 06/08/17 Warfarin Sodium* (Coumadin*) 7.5 Mg Tablet, 7.5 MG PO DAILY, TAB 06/08/17 Lovastatin* (Lovastatin*) 20 Mg Tablet, 20 MG PO QAM, TAB 06/08/17 Follow-up Plan f/up with PMD in 2 weeks, f/up with Dr Mendiola in [facility] in 2 weeks, f/up wwith Dr Amaya, oncology in 1 week, pt needs outpatint PEP scam for evaluation of lung mass. Primary Care Provider Not On Staff Doctor Time spent on discharge: > 30 minutes Pending Labs Laboratory Tests Test 08/12/17 06:55 08/12/17 10:49 White Blood Count 6.310^3/ul (4.8-10.8) Red Blood Count 3.4910^6/ul (4.70-6.10) Hemoglobin 9.2g/dl (14.0-18.0) Hematocrit 30.4% (42.0-52.0) Mean Corpuscular Volume 87.1fl (82.0-101.0) Mean Corpuscular Hemoglobin 26.4pg (29.0-33.0) Mean Corpuscular Hemoglobin Concent 30.3g/dl (32.0-37.0) Red Cell Distribution Width 15.8% (11.5-14.5) Platelet Count 68146^3/UL (140-415) Mean Platelet Volume 9.2fl (7.4-10.4) Neutrophils % 59.8% (39.0-77.0) Lymphocytes % 19.2% (15.0-51.0) Monocytes % 12.7% (0.0-11.0) Eosinophils % 7.3% (0.0-7.0) Basophils % 0.5% (0.0-2.0) Nucleated Red Blood Cells % 0.0/100WBC (0.0-0.0) Neutrophils # 3.810^3/ul (1.6-7.5) Lymphocytes # 1.210^3/ul (0.8-2.9) Monocytes # 0.810^3/ul (0.3-0.9) Eosinophils # 0.510^3/ul (0.0-0.5) Basophils # 0.010^3/ul (0.0-0.1) Nucleated Red Blood Cells # 0.010^3/ul (0.0-0.0) Sodium Level 141mmol/L (135-144) Potassium Level 3.9mmol/L (3.5-5.1) Chloride Level 104mmol/L (97-110) Carbon Dioxide Level 32mmol/L (21-31) Anion Gap 9 (8-16) Blood Urea Nitrogen 9mg/dl (7-20) Creatinine 0.74mg/dl (0.61-1.24) Glucose Level 91mg/dl (70-220) Calcium Level 8.8mg/dl (8.4-10.2) Lab Scanned Report REFERENCE [id number] LISETTE MEDINA Aug 12, 2017 18:13
[2017-08-12] MEDS: GABAPENTIN 300 MG CAP PO SCH (21:01)
[2017-08-12] MEDS: ZOLPIDEM 5 MG TAB PO PRN (21:05)
[2017-08-13] VITALS (11 sets, daily range): BP systolic 92–121; BP diastolic 53–65; PULSE 85–150; RESP 16–21
[2017-08-13] MEDS: SALMETEROL/FLUTICASONE 250/50 INHA INH SCH (08:42)
[2017-08-13] MEDS: DUTASTERIDE 0.5 MG CAP PO SCH (08:42)
[2017-08-13] MEDS: LACTOBACILLUS RHAMNOSUS CAP PO SCH (08:43)
[2017-08-13] MEDS: DOCUSATE SODIUM 100 MG CAP PO SCH (08:43)
[2017-08-13] MEDS: ATORVASTATIN 10 MG TAB PO SCH (08:43)
[2017-08-13] MEDS: APIXABAN 5 MG TABLET PO SCH (08:43)
[2017-08-13] MEDS: ASPIRIN (EC) 81 MG TAB PO SCH (08:43)
[2017-08-13] MEDS: CLOPIDOGREL 75 MG TAB PO SCH (08:44)
[2017-08-13] MEDS: FAMOTIDINE 20 MG TAB PO SCH (08:44)
[2017-08-13] MEDS: ATENOLOL 25 MG TAB PO SCH (08:44)
[2017-08-13] MEDS: MINERAL OIL 30ML CUP PO SCH (08:44)
[2017-08-13] MEDS: LORAZEPAM 2 MG INJ IV PRN ×2 (08:47→15:19)
--- NOTE | 2017-08-13 09:22 | CONS ---
Date/Time of Note Date/Time of Note DATE: 08/13/17 TIME: 09:19 Assessment/Plan Assessment/Plan Additional Assessment/Plan - Right Lower Extremity- swelling - stat venous Doppler- fu result- dw staff - Leukocytosis - likely reactive 2/2 recurrent DVT - resolved - Occlusive DVT throughout RLE per venous doppler 08/03/2017; s/p repeat angiography 08/04/2017 - Right femoral popliteal aneurysm and BLE DVT and inferior vena cava thrombosis , S/p R fem-pop stent grafting and aortoiliac angiogram and S/p BLE thrombectomy (pt had multiple lysis checks and thrombectomies with latest on 08/07/2017) - H/o DVT s/p IVC filter - RUL mass-like lesion concerning for malignancy/Pulmonary nodule with possible PNA per pulmonary - declining biopsy, s/p empiric azithromycin - Bilateral adrenal nodules concerning for malignancy per CT - COPD/emphysema - Hypercoagulation - Dyslipidemia - Debility d/t prolonged hospitalization - improving - Tachycardia - Anxiety Recommendations: - monitor closely off antibiotics - pending: cocci (08/07 in process), crypto (not detected) - continue probiotics - okay from ID standpoint for DC home -awaiting cardiac clearance Anticipate discharge home- awaiting approval from insurance for [facility]. Management d/w patient, RN Kwadwo and Dr. Faria Therapeutic time provided Consultation Date/Type/Reason Admit Date/Time Jul 21, 2017 at 23:03 Initial Consult Date 08/01/17 Type of Consultation: INFECTIOUS DISEASE Referring Provider: SEBAS LALA MD 24 HR Interval Summary Free Text/Dictation - Pt is waiting for Eliquis approval and just wants to go home. WBC wnl, afebrile - Sinus Tachy- HR 90 - cardiac clearance per d/w nursing staff. - no CP, SOB, n/v/d, dysuria, fever reported - staff Exam/Review of Systems Vital Signs Vitals Vital Signs Date Time Temp Pulse Resp B/P Pulse Ox O2 Delivery O2 Flow Rate FiO2 08/13/17 08:25 94 08/13/17 08:02 98.1 18 96/55 98 08/11/17 00:17 21 Intake and Output 08/12/17 08/12/17 08/13/17 15:00 23:00 07:00 Intake Total 850 ml 300 ml Output Total 700 ml Balance 150 ml 300 ml Exam Constitutional: alert, oriented, well developed Respiratory: diminished breath sounds, normal air movement Cardiovascular: nl pulses, other (s1s2) Gastrointestinal: non-tender, soft Musculoskeletal: nl extremities to inspection Extremities: edema (right leg- diminished pulses), normal pulses Neurological: nl mental status, nl speech Results Result Diagram: 08/12/17 0655 08/12/17 0655 Results 24 hrs Laboratory Tests Test 08/12/17 10:49 Lab Scanned Report REFERENCE LAB Medications Medications Current Medications Dutasteride (Avodart) 0.5 mg DAILY PO Last administered on 08/13/17 08:42; Admin Dose 0.5 MG; Start 07/22/17 at 09:00 Gabapentin (Neurontin) 300 mg QHS PO Last administered on 08/12/17 21:01; Admin Dose 300 MG; Start 07/22/17 at 21:00 Salmeterol Xinafoate/ Fluticasone (Advair 250/50 Diskus) 1 inh BID INH Last administered on 08/08/17 09:16; Admin Dose 1 INH; Start 07/22/17 at 09:00 Atorvastatin Calcium (Lipitor) 10 mg QAM PO Last administered on 08/13/17 08: 43; Admin Dose 10 MG; Start 07/22/17 at 09:00 Acetaminophen (Tylenol Tab) 650 mg QID PRN PO PAIN LEVEL 1-5; Start 07/21/17 at 23:30 Ondansetron HCl (Zofran Inj) 4 mg Q6H PRN IV NAUSEA AND/OR VOMITING Last administered on 08/04/17 02:15; Admin Dose 4 MG; Start 07/21/17 at 23:30 Acetaminophen/ Hydrocodone Bitart ([place] (5/325)) 1 tab Q4H PRN PO PAIN LEVEL 4 -7 Last administered on 08/03/17 16:41; Admin Dose 1 TAB; Start 07/21/17 at 23:30 Docusate Sodium (Colace) 100 mg BID PO Last administered on 08/10/17 20:57; Admin Dose 100 MG; Start 07/28/17 at 21:00 Polyethylene Glycol (Miralax) 17 gm PRN PRN PO CONSTIPATION Last administered on 07/31/17 20:26; Admin Dose 17 GM; Start 07/28/17 at 15:00 Senna (Senokot) 1 tab DAILY PRN PO CONSTIPATION Last administered on 20:25; Admin Dose 1 TAB; Start 07/30/17 at 17:00 Mineral Oil (Mineral Oil) 30 ml BID PO Last administered on 08/05/17 08:57; Admin Dose 30 ML; Start 07/30/17 at 21:00 Furosemide (Lasix) 20 mg DAILY IV Last administered on 08/10/17 09:27; Admin Dose 20 MG; Start 08/01/17 at 09:00; Status Future Hold Lorazepam (Ativan) 0.5 mg Q6H PRN IV ANXIETY Last administered on 08/13/17 08: 47; Admin Dose 0.5 MG; Start 08/01/17 at 19:00 Metoprolol Tartrate (Lopressor) 5 mg Q4H PRN IV ELEVATED HEART RATE; Start at 04:00 Levalbuterol (Xopenex Neb) 0.63 mg Q6H PRN HHN SHORTNESS OF BREATH Last administered on 08/09/17 18:20; Admin Dose 0.63 MG; Start 08/06/17 at 14:00 Acetaminophen/ Hydrocodone Bitart ([place] (5/325)) 2 tab Q4H PRN PO PAIN LEVEL 6 -10; Start 08/06/17 at 08:00 Lactobacillus Acidophilus/ Rhamnosus (Culturelle) 1 cap BID PO Last administered on 08/13/17 08:43; Admin Dose 1 CAP; Start 08/07/17 at 21:00 Apixaban (Eliquis) 10 mg BID PO Last administered on 08/13/17 08:43; Admin Dose 10 MG; Start 08/08/17 at 09:00 Clopidogrel Bisulfate (plaVIX) 75 mg DAILY PO Last administered on 08/13/17 08 :44; Admin Dose 75 MG; Start 08/09/17 at 09:00 Famotidine (Pepcid) 20 mg BID PO Last administered on 08/13/17 08:44; Admin Dose 20 MG; Start 08/10/17 at 21:00 Aspirin (Halfprin) 81 mg DAILY PO Last administered on 08/13/17 08:43; Admin Dose 81 MG; Start 08/11/17 at 11:30 Atenolol (Tenormin) 25 mg BID PO Last administered on 08/12/17t 21:02; Admin Dose 25 MG; Start 08/12/17 at 09:00 JOSIE CHENG Aug 13, 2017 09:22
--- NOTE | 2017-08-13 10:12 | PN ---
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 Dr. Mendiola is following in vascular surgery consultation. S/p multiple vascular interventions by Dr. Mendiola: 07/23/2017: -S/P Bilateral lower extremity venogram -S/P Bilateral CI, EI, CF veins and caval mechanical thrombectomy -S/P Thrombolysis Catheters 07/24/2017: -S/P Bilateral lysis check 07/25/2017 -S/P Bilateral Lysis check & removal of catheters 08/03/2017 - Patient had delayed transition of anticoagulation IV -> PO -S/P RLE angiogram, mechanical thrombectomy and thrombolysis -S/P RLE venogram, lysis catheter placement 08/04/2017 -S/P Lysis check 08/06/2017 -S/P lysis check, -S/P Iliocaval mechanical thrombectomy -S/P Removal of RLE arterial catheter 08/07/2017 -S/P Lysis check -S/P Iliocaval mechanical thrombectomy -S/P Removal of RLE venous catheter -Started Eliquis 10mg PO BID x 7days -Will also treat patient with dual antiplatelet therapy ASA and Plavix -Hypercoagulation work up is neg, Dr Amaya is following in hematology consultation. 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 Patient refused lung biopsy at this time. Dr Garay is following in pulmonology consultation. Continue Zithromax with this recommendation for follow-up CT in [address] as an outpatient and biopsy when he is comfortable. -COPD, continue Advair -Dyslipidemia, continue statin. -BPH Exam/Review of Systems Vital Signs Vitals Vital Signs Date Time Temp Pulse Resp B/P Pulse Ox O2 Delivery O2 Flow Rate FiO2 08/13/17 08:25 94 08/13/17 08:02 98.1 18 96/55 98 08/11/17 00:17 21 Intake and Output 08/12/17 08/12/17 08/13/17 15:00 23:00 07:00 Intake Total 850 ml 300 ml Output Total 700 ml Balance 150 ml 300 ml Exam Constitutional: alert, oriented Respiratory: normal air movement Cardiovascular: nl pulses Gastrointestinal: non-tender, soft Musculoskeletal: nl extremities to inspection Extremities: edema RLE Neurological: nl mental status Results Result Diagram: 08/12/17 0655 08/12/17 0655 Results 24 hrs Laboratory Tests Test 08/12/17 10:49 Lab Scanned Report REFERENCE LAB Medications Medications Current Medications Dutasteride (Avodart) 0.5 mg DAILY PO Last administered on 08/13/17 08:42; Admin Dose 0.5 MG; Start 07/22/17 at 09:00 Gabapentin (Neurontin) 300 mg QHS PO Last administered on 08/12/17 21:01; Admin Dose 300 MG; Start 07/22/17 at 21:00 Salmeterol Xinafoate/ Fluticasone (Advair 250/50 Diskus) 1 inh BID INH Last administered on 08/08/17 09:16; Admin Dose 1 INH; Start 07/22/17 at 09:00 Atorvastatin Calcium (Lipitor) 10 mg QAM PO Last administered on 08/13/17 08: 43; Admin Dose 10 MG; Start 07/22/17 at 09:00 Acetaminophen (Tylenol Tab) 650 mg QID PRN PO PAIN LEVEL 1-5; Start 07/21/17 at 23:30 Ondansetron HCl (Zofran Inj) 4 mg Q6H PRN IV NAUSEA AND/OR VOMITING Last administered on 08/04/17 02:15; Admin Dose 4 MG; Start 07/21/17 at 23:30 Acetaminophen/ Hydrocodone Bitart ([place] (5/325)) 1 tab Q4H PRN PO PAIN LEVEL 4 -7 Last administered on 08/03/17 16:41; Admin Dose 1 TAB; Start 07/21/17 at 23:30 Docusate Sodium (Colace) 100 mg BID PO Last administered on 08/10/17 20:57; Admin Dose 100 MG; Start 07/28/17 at 21:00 Polyethylene Glycol (Miralax) 17 gm PRN PRN PO CONSTIPATION Last administered on 07/31/17 20:26; Admin Dose 17 GM; Start 07/28/17 at 15:00 Senna (Senokot) 1 tab DAILY PRN PO CONSTIPATION Last administered on 20:25; Admin Dose 1 TAB; Start 07/30/17 at 17:00 Mineral Oil (Mineral Oil) 30 ml BID PO Last administered on 08/05/17 08:57; Admin Dose 30 ML; Start 07/30/17 at 21:00 Furosemide (Lasix) 20 mg DAILY IV Last administered on 08/10/17 09:27; Admin Dose 20 MG; Start 08/01/17 at 09:00; Status Future Hold Lorazepam (Ativan) 0.5 mg Q6H PRN IV ANXIETY Last administered on 08/13/17 08: 47; Admin Dose 0.5 MG; Start 08/01/17 at 19:00 Metoprolol Tartrate (Lopressor) 5 mg Q4H PRN IV ELEVATED HEART RATE; Start at 04:00 Levalbuterol (Xopenex Neb) 0.63 mg Q6H PRN HHN SHORTNESS OF BREATH Last administered on 08/09/17 18:20; Admin Dose 0.63 MG; Start 08/06/17 at 14:00 Acetaminophen/ Hydrocodone Bitart ([place] (5/325)) 2 tab Q4H PRN PO PAIN LEVEL 6 -10; Start 08/06/17 at 08:00 Lactobacillus Acidophilus/ Rhamnosus (Culturelle) 1 cap BID PO Last administered on 08/13/17 08:43; Admin Dose 1 CAP; Start 08/07/17 at 21:00 Apixaban (Eliquis) 10 mg BID PO Last administered on 08/13/17 08:43; Admin Dose 10 MG; Start 08/08/17 at 09:00 Clopidogrel Bisulfate (plaVIX) 75 mg DAILY PO Last administered on 08/13/17 08 :44; Admin Dose 75 MG; Start 08/09/17 at 09:00 Famotidine (Pepcid) 20 mg BID PO Last administered on 08/13/17 08:44; Admin Dose 20 MG; Start 08/10/17 at 21:00 Aspirin (Halfprin) 81 mg DAILY PO Last administered on 08/13/17 08:43; Admin Dose 81 MG; Start 08/11/17 at 11:30 Atenolol (Tenormin) 25 mg BID PO Last administered on 08/12/17 21:02; Admin Dose 25 MG; Start 08/12/17 at 09:00 LISETTE MEDINA Aug 13, 2017 10:09
== END 2017-08-13 18:11 | disposition home health service (06) | DRG 270 ==
LOC: E/R 18:14 → MS2 23:03 → ICU 07-23 19:20 → TEL 07-27 10:10 → MS2 07-28 22:55 → ICU 08-03 19:13 → TEL 08-08 18:43 → MS4 08-08 21:55
PROVIDERS: ADMIT Internal Medicine; ATTEND Internal Medicine
PROC: 06CN3ZZ Extirpation of Matter from Left Femoral Vein, Percutaneous Approach (ICD-10-PCS; 2017-07-23)
PROC: 06CF3ZZ Extirpation of Matter from Right External Iliac Vein, Percutaneous Approach (ICD-10-PCS; 2017-07-23)
PROC: 06CG3ZZ Extirpation of Matter from Left External Iliac Vein, Percutaneous Approach (ICD-10-PCS; 2017-07-23)
PROC: 06CC3ZZ Extirpation of Matter from Right Common Iliac Vein, Percutaneous Approach (ICD-10-PCS; 2017-07-23)
PROC: 04VL3DZ Restriction of Left Femoral Artery with Intraluminal Device, Percutaneous Approach (ICD-10-PCS; 2017-07-23)
PROC: 04V Lower Arteries, Restriction (ICD-10-PCS; 2017-07-23)
PROC: B51D1ZZ Fluoroscopy of Bilateral Lower Extremity Veins using Low Osmolar Contrast (ICD-10-PCS; 2017-07-23)
PROC: 3E03317 Introduction of Other Thrombolytic into Peripheral Vein, Percutaneous Approach (ICD-10-PCS; 2017-07-23)
PROC: 30233K1 Transfusion of Nonautologous Frozen Plasma into Peripheral Vein, Percutaneous Approach (ICD-10-PCS; 2017-07-23)
PROC: 30233N1 Transfusion of Nonautologous Red Blood Cells into Peripheral Vein, Percutaneous Approach (ICD-10-PCS; 2017-07-23)
PROC: 06C03ZZ Extirpation of Matter from Inferior Vena Cava, Percutaneous Approach (ICD-10-PCS; principal; 2017-07-23 15:30)
PROC: 06CD3ZZ Extirpation of Matter from Left Common Iliac Vein, Percutaneous Approach (ICD-10-PCS; 2017-07-23 15:30)
PROC: 06CM3ZZ Extirpation of Matter from Right Femoral Vein, Percutaneous Approach (ICD-10-PCS; 2017-07-23 15:30)
PROC: B51DYZZ Fluoroscopy of Bilateral Lower Extremity Veins using Other Contrast (ICD-10-PCS; 2017-07-24)
PROC: 3E03317 Introduction of Other Thrombolytic into Peripheral Vein, Percutaneous Approach (ICD-10-PCS; 2017-07-24)
PROC: B51DYZZ Fluoroscopy of Bilateral Lower Extremity Veins using Other Contrast (ICD-10-PCS; 2017-07-25)
PROC: 04CM3ZZ Extirpation of Matter from Right Popliteal Artery, Percutaneous Approach (ICD-10-PCS; 2017-08-03)
PROC: 04CK3ZZ Extirpation of Matter from Right Femoral Artery, Percutaneous Approach (ICD-10-PCS; 2017-08-03)
PROC: B51CYZZ Fluoroscopy of Left Lower Extremity Veins using Other Contrast (ICD-10-PCS; 2017-08-03)
PROC: 3E05317 Introduction of Other Thrombolytic into Peripheral Artery, Percutaneous Approach (ICD-10-PCS; 2017-08-03)
PROC: 3E03317 Introduction of Other Thrombolytic into Peripheral Vein, Percutaneous Approach (ICD-10-PCS; 2017-08-03)
PROC: B51BYZZ Fluoroscopy of Right Lower Extremity Veins using Other Contrast (ICD-10-PCS; 2017-08-04)
PROC: B41FYZZ Fluoroscopy of Right Lower Extremity Arteries using Other Contrast (ICD-10-PCS; 2017-08-04)
PROC: B41FYZZ Fluoroscopy of Right Lower Extremity Arteries using Other Contrast (ICD-10-PCS; 2017-08-05)
PROC: B51BYZZ Fluoroscopy of Right Lower Extremity Veins using Other Contrast (ICD-10-PCS; 2017-08-05)
PROC: 06C03ZZ Extirpation of Matter from Inferior Vena Cava, Percutaneous Approach (ICD-10-PCS; 2017-08-06)
PROC: B41FYZZ Fluoroscopy of Right Lower Extremity Arteries using Other Contrast (ICD-10-PCS; 2017-08-06)
PROC: B51BYZZ Fluoroscopy of Right Lower Extremity Veins using Other Contrast (ICD-10-PCS; 2017-08-06)
PROC: 06C03ZZ Extirpation of Matter from Inferior Vena Cava, Percutaneous Approach (ICD-10-PCS; 2017-08-07)
PROC: B41FYZZ Fluoroscopy of Right Lower Extremity Arteries using Other Contrast (ICD-10-PCS; 2017-08-07)
PROC: B51BYZZ Fluoroscopy of Right Lower Extremity Veins using Other Contrast (ICD-10-PCS; 2017-08-07)
DX: I70.223 Atherosclerosis of native arteries of extremities with rest pain, bilateral legs (principal); J18.9 Pneumonia, unspecified organism; I82.413 Acute embolism and thrombosis of femoral vein, bilateral; D68.59 Other primary thrombophilia; I74.3 Embolism and thrombosis of arteries of the lower extremities; E27.8 Other specified disorders of adrenal gland; J44.0 Chronic obstructive pulmonary disease with (acute) lower respiratory infection; D62 Acute posthemorrhagic anemia; I82.890 Acute embolism and thrombosis of other specified veins; T82.868A Thrombosis due to vascular prosthetic devices, implants and grafts, initial encounter; I82.423 Acute embolism and thrombosis of iliac vein, bilateral; D64.9 Anemia, unspecified; Z95.828 Presence of other vascular implants and grafts; E78.5 Hyperlipidemia, unspecified; Z79.01 Long term (current) use of anticoagulants; Z87.891 Personal history of nicotine dependence; F12.90 Cannabis use, unspecified, uncomplicated; Z86.718 Personal history of other venous thrombosis and embolism; I10 Essential (primary) hypertension; I72.4 Aneurysm of artery of lower extremity; K59.00 Constipation, unspecified; D72.829 Elevated white blood cell count, unspecified; Y83.8 Other surgical procedures as the cause of abnormal reaction of the patient, or of later complication, without mention of misadventure at the time of the procedure; Y92.239 Unspecified place in hospital as the place of occurrence of the external cause; N40.0 Benign prostatic hyperplasia without lower urinary tract symptoms; R59.0 Localized enlarged lymph nodes; R91.8 Other nonspecific abnormal finding of lung field; N45.1 Epididymitis
CPT/HCPCS: 36430; 36600; 37211; 70450; 71010; 71260; 75630; 75635; 75896; 75945; 75960; 80048; 80053; 80061; 80076; 81003; 81240; 82553; 82570; 82803; 83090; 83605; 83735; 83874; 83890; 84100; 84145; 84300; 84443; 84484; 84560; 85025; 85300; 85384; 85576; 85610; 85613; 85730; 86146; 86147; 86635; 86641; 86644; 86850; 86900; 86901; 86920; 87040; 87081; 88304; 88341; 88342; 89190; 90686; 93005; 93306; 93970; 93971; 93976; 94640; 94664; 96367; 97110; 97116; 97162; 97530; J1940; C1725; C1760; C1875; C1887; C1894; J0690; J1170; J1644; J2060; J2250; J2270; J2405; J2440; J2997; J3010; J7030; J7120; P9016; P9059; Q9967

== ENCOUNTER 2017-11-24 15:25 | Emergency (ER) | END 2017-11-24 21:21 | disposition left against medical advice (07) ==

== ENCOUNTER 2017-11-25 19:51 | Inpatient (IN) | END 2017-12-17 04:30 | disposition EXP | DRG 64 ==